=== PATIENT | male | born 1960 | race Hispanic/Latino ===

== ENCOUNTER → 2017-03-25 | Outpatient (CLI) | payer MEDICARE ==
[~2017-03-25] MED LIST: AMLODIPINE BESYL5 MG PO; CARVEDILOL12.5 MG PO; HUMULIN N100 UNITS/ SQ; HUMULIN R100 UNIT/2 SQ; HYDRALAZINE HCL25 MG PO; LISINOPRIL10 MG PO; RENVELA800 MG PO
--- NOTE | 2017-03-25 16:10 | Diagnostic Imaging Report ---
Right hip 2 - views HISTORY: Pain. Arthritis. COMPARISON: None FINDINGS: No displaced fracture. Osseous alignment is within normal limits. Mild degenerative changes of the right hip joint. Extensive vascular calcifications. IMPRESSION: Mild degenerative osteoarthrosis. Signed by: Dr. Conrad Pierre M.D. on 03/25/2017 4:07 PM
== END ==
LOC: RAD 11:12
PROVIDERS: ATTEND Internal Medicine
DX: M25.551 Pain in right hip (principal); M13.851 Other specified arthritis, right hip

== ENCOUNTER → 2017-12-14 | Outpatient (CLI) | payer MEDICARE ==
--- NOTE | 2017-12-14 16:55 | Diagnostic Imaging Report ---
EXAM: CT Abdomen and Pelvis WITHOUT contrast INDICATION: Left lower quadrant / flank pain COMPARISON: None. TECHNIQUE: Abdomen and pelvis were scanned utilizing a multidetector helical scanner from the lung base to the pubic symphysis without administration of IV contrast. Absence of intravenous contrast decreases sensitivity for detection of focal lesions and vascular pathology. Coronal and sagittal reformations were obtained. Routine protocol was performed. IV CONTRAST: None. ORAL CONTRAST: Water RADIATION DOSE: Total DLP: 821mGy*cm Estimated effective dose: (DLP x 0.015 x size factor) mSv COMPLICATIONS: None FINDINGS: LINES and TUBES: None. LOWER THORAX: Extensive coronary calcifications. Mitral annular calcifications. Lung bases are clear. HEPATOBILIARY: No focal hepatic lesions. There is cholelithiasis with a stone in the distal cystic duct without evidence of cholecystitis. SPLEEN: No splenomegaly. There is a 2.6 cm cyst (19 HU) in the spleen with associated punctate calcification. PANCREAS: No focal masses or ductal dilatation. ADRENALS: No adrenal nodules KIDNEYS/URETERS: No hydronephrosis. Numerous punctate 1-2 mm bilateral renal calcifications are likely vascular calcifications rather than stones. Atrophic bilateral kidneys. Subcentimeter hypodensity in the right kidney, too small to characterize, but likely representing a cyst. GI TRACT: No evidence of diverticulitis. Prominent mid small bowel loops measuring up to 3 cm without associated wall thickening, proximal dilatation, inflammatory changes, or decompression of the colon to suggest obstruction. Colon is filled with stool. Appendix is normal. PELVIC ORGANS/BLADDER: The bladder is decompressed and mildly thick walled. LYMPH NODES: No lymphadenopathy. VESSELS: Atherosclerotic calcifications of the abdominal aorta and branch vessels. PERITONEUM / RETROPERITONEUM: No free air or fluid. BONES AND SOFT TISSUES: No acute bony findings. Degenerative changes of the visualized spine. IMPRESSION: No evidence of diverticulitis or urinary stone. Mildly thick walled bladder which could represent cystitis in the appropriate clinical context. Cholelithiasis with stone in the distal cystic duct without CT evidence of cholecystitis. Extensive coronary atherosclerosis. Signed by: Dr. Jarett Del Rosario MD on 12/14/2017 4:52 PM
== END ==
LOC: CT 13:59
PROVIDERS: ATTEND Internal Medicine
DX: R10.32 Left lower quadrant pain (principal); M54.5 Low back pain; N20.1 Calculus of ureter; K80.20 Calculus of gallbladder without cholecystitis without obstruction; I25.10 Atherosclerotic heart disease of native coronary artery without angina pectoris
CPT/HCPCS: 74176

== ENCOUNTER → 2018-03-03 | Outpatient (CLI) | payer MEDICARE ==
--- NOTE | 2018-03-03 15:37 | Diagnostic Imaging Report ---
EXAMINATION: CHEST 2 VIEWS INDICATION: ^[id number] ^1410 ^COUGH COMPARISON: None FINDINGS: PA and lateral views TUBES and LINES: None. LUNGS: Lungs are well inflated. Mild retrocardiac opacities. PLEURA: No pleural effusion or pneumothorax. HEART AND MEDIASTINUM: The cardiomediastinal silhouette is unremarkable. BONES AND SOFT TISSUES: No acute osseous lesion. Soft tissues are unremarkable. UPPER ABDOMEN: No free air under the diaphragm. IMPRESSION: Mild retrocardiac opacities, concerning for developing pneumonia. Signed by: Dr. Rohit Veloz MD on 03/03/2018 3:33 PM
== END ==
LOC: RAD 14:02
DX: R05 Cough (principal)
CPT/HCPCS: 71046

== ENCOUNTER → 2018-09-15 | Day surgery (SDC) | payer MEDICARE ==
[2018-09-13 11:25] LABS: ALBUMIN 4.2 g/dL (3.5-5.0); ALBUMIN/GLOBULIN RATIO 1.6 (0.8-2.0); ANION GAP 17.5 mmol/L (8-16); BASOPHILS % 0.3 % (0.0-1.0); CALCIUM 10.1 mg/dL (8.4-10.2); CREATININE, SERUM 9.06 mg/dL (0.72-1.25); EOSINOPHILS # (AUTO) 0.3 (0.0-0.4); EOSINOPHILS % 3.7 % (0.0-6.0); HEMATOCRIT 33.1 % (38.2-49.6); HEMOGLOBIN 11.6 g/dL (14.0-18.0); INR 0.94; LYMPHOCYTES % 14.3 % (18.0-39.1); MEAN CORPUSCULAR VOLUME 94.3 fL (81-99); MONOCYTES # (AUTO) 0.3 (0.2-0.8); MONOCYTES % 4.5 % (4.4-11.3); NEUTROPHILS # (AUTO) 5.1 (2.1-6.9); NEUTROPHILS % 76.9 % (38.7-80.0); PLATELET COUNT 135 x10e3/uL (140-360); POTASSIUM 4.5 mmol/L (3.5-5.1); PROTHROMBIN TIME 13.1 seconds (11.9-14.5); RED BLOOD COUNT 3.51 x10e6/uL (4.3-5.7); RED CELL DISTRIBUTION WIDTH 13.8 % (11.7-14.4)
[~2018-09-15] VITALS: Ht 185.4 cm; Wt 99.3 kg
[2018-09-15] VITALS (11 sets, daily range): BP systolic 127–199; BP diastolic 57–98
[~2018-09-15] MED LIST changes: +ASPIR 8181 MG PO; +ASPIRIN 325 MG TAB ONE; +CLONIDINE HCL0.2 MG PO; +CLOPIDOGREL BISULFATE 75 MG TAB ONE; +FENTANYL CITRATE/PF 100MCG/2 ML INJ ONE; +HEPARIN SOD/SOD CHLORIDE 2,000 ML ONE; +HYDRALAZINE HCL 20 MG/ML VIAL ONE; +IOPAMIDOL 300MG/ML 100 ML INFUS..BTL IV ONE; +LANTUS 3ML100 UNITS/ SC; +LIDOCAINE HCL 2% LOCAL 20 ML VIAL ONE; +MIDAZOLAM HCL 2 MG/2 ML VIAL ONE; +MORPHINE SULFATE INJ 4 MG/ML INJ 1ML ONE; +MULTI-VITAMIN1 EACH PO; +SODIUM CHLORIDE 0.9% 1000ML 1,000 ML ONE; +VANCOMYCIN 1GM/NS 250 ML 250 ML ONE; +VERAPAMIL HCL 2.5 MG/ML 2 ML VIAL ONE
--- OUTSIDE RECORDS SUMMARY | 2018-09-15 07:13 | XMS REPORT ---
Author Author [facility] Address Unknown Phone Unavailable Care Team Providers Care Moisture Conditioner Operator Name Role Phone OLGA CRANE Unavailable Unavailable ANDI JAIN Unavailable Unavailable Problems This patient has no known problems. Allergies, Adverse Reactions, Alerts This patient has no known allergies or adverse reactions. Medications This patient has no known medications. Results Test Description Test Time Test Comments Text Results Atomic Results Result Comments CHEST 2 VIEWS 2018-03-03 15:32:00 [place] [address] Patient Name: YASSINE FLOOD JR MR #: [id number] : 1960 Age/Sex: 57/M Req #: [id number] Adm Physician: Ordered by: OLGA CRANE MD Report #: [id number] Location: [facility] Room/Bed: Procedure: [id number] DX/CHEST 2 VIEWS Exam Date: 03/03/18 Exam Time: 1410 REPORT STATUS: Signed EXAMINATION: CHEST 2 VIEWS INDICATION: [id number] 1410 COUGH COMPARISON: None FINDINGS: PA and lateral views TUBES and LINES: None. LUNGS: Lungs are well inflated. Mild retrocardiac opacities. PLEURA: No pleural effusion or pneumothorax. HEART AND MEDIASTINUM: The cardiomediastinal silhouette is unremarkable. BONES AND SOFT TISSUES: No acute osseous lesion. Soft tissues are unremarkable. UPPER ABDOMEN: No free air under the diaphragm. IMPRESSION: Mild retrocardiac opacities, concerning for developing pneumonia. Signed by: Dr. Rohit Trammell MD on 03/03/2018 3:33 PM Dictated By: ROHIT TRAMMELL MD 32 Transcribed By: HEAVEN on 03/03/181532 COPY TO: OLGA CRANE MD CT ABDOMEN/PELVIS WO 2017-12-14 15:03:00 [place] [address] Patient Name: YASSINE FLOOD JR MR #: [id number] : 1960 Age/Sex: 57/M Req #: [id number] Adm Physician: Ordered by: ANDI JAIN MD Report #: [id number] Location: CT Room/Bed: Procedure: [id number] CT/CT ABDOMEN/PELVIS WO Exam Date: Exam Time: REPORT STATUS: Signed EXAM: CT Abdomen and Pelvis WITHOUT contrast INDICATION: Left lower quadrant / flank pain COMPARISON: None. TECHNIQUE: Abdomen and pelvis were scanned utilizing a multidetector helical scanner from the lung base to the pubic symphysis without administration of IV contrast. Absence of intravenous contrast decreases sensitivity for detection of focal lesions and vascular pathology. Coronal and sagittal reformations were obtained. Routine protocol was performed. IV CONTRAST: None. ORAL CONTRAST: Water RADIATION DOSE: Total DLP: 821mGy*cm Estimated effective dose: (DLP x 0.015 x size factor) mSv COMPLICATIONS: None FINDINGS: LINES and TUBES: None. LOWER THORAX: Extensive coronary calcifications. Mitral annular calcifications. Lung bases are clear. HEPATOBILIARY: No focal hepatic lesions. There is cholelithiasis with a stone in the distal cystic duct without evidence of cholecystitis. SPLEEN: No splenomegaly. There is a 2.6 cm cyst (19 HU) in the spleen with associated punctate calcification. PANCREAS: No focal masses or ductal dilatation. ADRENALS: No adrenal nodules KIDNEYS/URETERS: No hydronephrosis. Numerous punctate 1-2 mm bilateral renal calcifications are likely vascular calcifications rather than stones. Atrophic bilateral kidneys. Subcentimeter hypodensity in the right kidney, too small to characterize, but likely representing a cyst. GI TRACT: No evidence of diverticulitis. Prominent mid small bowel loops measuring up to 3 cm without associated wall thickening, proximal dilatation, inflammatory changes, or decompression of the colon to suggest obstruction. Colon is filled with stool. Appendix is normal. PELVIC ORGANS/BLADDER: The bladder is decompressed and mildly thick walled. LYMPH NODES: No lymphadenopathy. VESSELS: Atherosclerotic calcifications of the abdominal aorta and branch vessels. PERITONEUM / RETROPERITONEUM: No free air or fluid. BONES AND SOFT TISSUES: No acute bony findings. Degenerative changes of the visualized spine. IMPRESSION: No evidence of diverticulitis or urinary stone. Mildly thick walled bladder which could represent cystitis in the appropriate clinical context. Cholelithiasis with stone in the distal cystic duct without CT evidence of cholecystitis. Extensive coronary atherosclerosis. Signed by: Dr. Jarad Mccarty MD on 12/14/2017 4:52 PM Dictated By: JARAD MCCARTY MD 51 Transcribed By: HEAVEN on 12/14/171651 COPY TO: ANDI JAIN MD HIP RIGHT 2-3 VW (+/- PELVIS) [place] [address] Patient Name: YASSINE FLOOD JR MR #: [id number] : 1960 Age/Sex: 56/M Req #: [id number] Adm Physician: Ordered by: ANDI JAIN MD Report #: [id number] Location: [facility] Room/Bed: Procedure: [id number] DX/HIP RIGHT 2-3 VW (+/- PELVIS) Exam Date: Exam Time: REPORT STATUS: Signed Right hip 2 - views HISTORY: Pain. Arthritis. COMPARISON: None FINDINGS: No displaced fracture. Osseous alignment is within normal limits. Mild degenerative changes of the right hip joint. Extensive vascular calcifications. IMPRESSION: Mild degenerative osteoarthrosis. Signed by: Dr. Conrad Liu M.D. on 03/25/2017 4:07 PM Dictated By: NEREIDA LIU MD, MD 06 Transcribed By: HEAVEN on 03/25/171606 COPY TO: ANDI JAIN MD
--- NOTE | 2018-09-15 12:20 | NUR ---
1220pm Bedside report received from MARKOS Patterson. Identiferxr Peripheral fix to left leg via rt groin Mynx closure used.NO s/s hematoma or oozing.Alert oriented and appropriate, PERRLA, respirations even and unlabored to room air. Pulses x4 extremities equal and strong. Pedal pulses PT/DP x4 Doppler Cap fill brisk < 3 sec. Skin warm and dry integrity appears Dry and intact IV 20g to rt arm and clamped off, presents healthy w/o s/s of infiltration or complaint. Abdomen soft and supple. pt offered toileting, denies need to urinate or defecate. Dialysis pt left arm fistula positive thrill.For Hd treatment tomorrow 745 am. No personal affects with patient. Family Nathaly at bedside . Pt and family verbalizes understanding of POC. Rt groin MYNX site w/o hematoma or oozing Flat time till 350pm and dc home. Currently w complaint of back pain. 1245 Medicated 2mg Ivp Morphine sulfate ivp for 12/08 c/o back pain at bedside tolerated po intake and sandwich tray states pain decreased to 5/10. 1340 report to bp elevated 190/100 NIBP Manual ck 180/96 Hydralazine 10mg ivp and Morphine sulfate 2mg ivp for c/o back discomfort 12/08 1345 currently pain level 07/08 1400 190/[address] Brumfield 10mg ivp now ds/markos
--- NOTE | 2018-09-15 12:30 | NUR ---
1230 Pt states "think" sugar low , No other signs hypoglycemia.Pt offered po intake after NPO for peripheral angio and current finger stick 130. Received no insulin or meds this am from home list. nelad/rn
--- NOTE | 2018-09-15 13:27 | Operative Report ---
DATE OF PROCEDURE: 09/15/2018 SURGEON: Hector Winn DO PROCEDURES PERFORMED: 1. Conscious sedation, 2 hours. 2. Abdominal aortography. 3. Third-order peripheral angiography of the left lower extremity. 4. Secondary thrombectomy. 5. Orbital atherectomy and percutaneous transluminal angioplasty of the left anterior tibial artery. 6. Orbital atherectomy and percutaneous transluminal angioplasty of the left posterior tibial artery. 7. Orbital atherectomy and percutaneous transluminal angioplasty of the left popliteal artery. PREPROCEDURE DIAGNOSIS: Peripheral arterial disease with diabetes and left foot wound. POSTPROCEDURE DIAGNOSIS: Peripheral arterial disease. ESTIMATED BLOOD LOSS: Less than 20 mL. SPECIMENS REMOVED: None. PROCEDURE IN DETAIL: After informed consent was obtained, the patient was brought to the cardiac catheterization laboratory in a fasting and nonsedated state. Bilateral groins were prepped and draped in the usual sterile fashion. A 2% lidocaine was infiltrated over the right anterior groin for local anesthesia. Using a micropuncture needle, right common femoral artery was accessed via modified Seldinger technique and a 5-Kyrgyz sheath was placed. Next, abdominal aortography was performed using Omni Flush catheter. This was taken up and over and digital subtraction angiography revealed significant peripheral arterial disease. Decision was made to perform percutaneous intervention, the patient received systemic heparin for therapeutic anticoagulation. I crossed it up-and-over 65 cm 6-Kyrgyz sheath. The anterior tibial stenosis was crossed with a Whisper wire and I performed orbital atherectomy and percutaneous transluminal angioplasty with a 2.5 x 100 balloon. Next, I was able to cross to the posterior tibial occlusion and perform orbital atherectomy and balloon angioplasty with a 2.5 mm balloon. Unfortunately, there was some dissection likely from calcium deposit and subsequent balloon inflations did not yield adequate luminal gain. Of note, posterior tibial at plantar arch was occluded and filled via collaterals from the anterior tibial. Next, I performed balloon angioplasty and orbital atherectomy of the popliteal artery. The popliteal was angioplasty with a 5 x 80 Lutonix drug-coated balloon. Final angiography revealed excellent results with brisk two-vessel flow to the level of the foot. The patient tolerated the procedure well with no immediate complications and transported back to his room in stable condition. PROCEDURAL FINDINGS: 1. The infrarenal abdominal aorta and bilateral iliac arteries are patent. 2. The left lower extremity showed patent common femoral, deep femoral, and superficial femoral arteries. The popliteal artery had a 70% stenosis. Anterior tibial had a distal 80% stenosis. The tibioperoneal trunk and the peroneal vessel were patent. The posterior tibial has a chronic total occlusion. 3. The right common femoral, deep femoral, superficial femoral, popliteal, anterior tibial, tibioperoneal trunk, and peroneal vessels are patent. There was washout at the end of the angiography sequence, however, the posterior tibial artery appears to be occluded. DO DOMINGO Bledsoe/MODL /[id number]
--- NOTE | 2018-09-15 14:45 | NUR ---
1445 pt meets DC criteria. Rt groin Mynx site assessed for s/s of complication and presence of hematoma warm, dry, no discolor, and pulses present. IV removed from right wrist. Distal tip appears intact. VS WNL. Pt denies pain, sob, or need at this time. Romina here.Pt states pain relieved 0/10 Bp systolic 170's text Md and pt was dc'd to followup on home meds to make hd in am. Left fistula remain intact with positive thrill.Review of discharge paperwork and follow up instructions. verbalized understanding. Pt to wheelchair and transported to front of hospital. Transferred to private vehicle under own strength w/o incident with DC paperwork in hand. ds/rn
== END | disposition home or self-care (01) ==
LOC: CATH LAB 07:11
PROVIDERS: ATTEND Internal Medicine Cardiovascular Disease
DX: I70.213 Atherosclerosis of native arteries of extremities with intermittent claudication, bilateral legs (principal); I10 Essential (primary) hypertension; E78.5 Hyperlipidemia, unspecified; E11.9 Type 2 diabetes mellitus without complications; Z89.412 Acquired absence of left great toe; S91.302A Unspecified open wound, left foot, initial encounter; X58.XXXA Exposure to other specified factors, initial encounter; Z79.82 Long term (current) use of aspirin; Z79.4 Long term (current) use of insulin; Z82.49 Family history of ischemic heart disease and other diseases of the circulatory system
CPT/HCPCS: 36415; 37225; 37229; 37233; 75625; 75710; 75716; 80053; 85025; 85610; C1724 ×2; C1725 ×4; C1760; C1769 ×5; C1887; J0360; J2001; J2250; J2270; J3010; J3370; J7030; Q9967; 36247

== ENCOUNTER 2018-11-24 18:09 | Emergency (ER) | payer MEDICARE ==
[~2018-11-24] VITALS: Ht 185.4 cm; Wt 99.3 kg
[~2018-11-24 18:09] MED LIST changes: -ASPIRIN 325 MG TAB ONE; -CLOPIDOGREL BISULFATE 75 MG TAB ONE; -FENTANYL CITRATE/PF 100MCG/2 ML INJ ONE; -HEPARIN SOD/SOD CHLORIDE 2,000 ML ONE; -HYDRALAZINE HCL 20 MG/ML VIAL ONE; -IOPAMIDOL 300MG/ML 100 ML INFUS..BTL IV ONE; -LIDOCAINE HCL 2% LOCAL 20 ML VIAL ONE; -MIDAZOLAM HCL 2 MG/2 ML VIAL ONE; -MORPHINE SULFATE INJ 4 MG/ML INJ 1ML ONE; -SODIUM CHLORIDE 0.9% 1000ML 1,000 ML ONE; -VANCOMYCIN 1GM/NS 250 ML 250 ML ONE; -VERAPAMIL HCL 2.5 MG/ML 2 ML VIAL ONE
[2018-11-24] MEDS ORDERED: VANCOMYCIN 1GM/NS 250 ML 250 ML IV STA (18:58)
[2018-11-24] MEDS ORDERED: ACETAMINOPHEN 325 MG TAB PO ONE (19:00)
[2018-11-24 19:19] LABS: BASOPHILS % 0.2 % (0.0-1.0); EOSINOPHILS # (AUTO) 0.1 (0.0-0.4); EOSINOPHILS % 0.5 % (0.0-6.0); HEMATOCRIT 21.6 % (38.2-49.6); HEMOGLOBIN 7.6 g/dL (14.0-18.0); LYMPHOCYTES # (AUTO) 0.7 (1.0-3.2); LYMPHOCYTES % 6.3 % (18.0-39.1); MEAN CORPUSCULAR HGB CONC 35.2 g/dL (31-35); MEAN CORPUSCULAR VOLUME 93.9 fL (81-99); MONOCYTES # (AUTO) 0.7 (0.2-0.8); MONOCYTES % 6.4 % (4.4-11.3); NEUTROPHILS # (AUTO) 9.2 (2.1-6.9); NEUTROPHILS % 86.1 % (38.7-80.0); PLATELET COUNT 143 x10e3/uL (140-360); RED CELL DISTRIBUTION WIDTH 13.8 % (11.7-14.4)
[2018-11-24 19:27] LABS: INR 1.04; PARTIAL THROMBOPLASTIN TIME 40.5 seconds (23.8-35.5); PROTHROMBIN TIME 14.1 seconds (11.9-14.5)
[2018-11-24 19:36] LABS: ALBUMIN 3.5 g/dL (3.5-5.0); ALBUMIN/GLOBULIN RATIO 1.1 (0.8-2.0); ANION GAP 15.8 mmol/L (8-16); CALCIUM 9.9 mg/dL (8.4-10.2); CREATININE, SERUM 8.77 mg/dL (0.72-1.25); POTASSIUM 3.8 mmol/L (3.5-5.1)
[2018-11-24] MEDS ORDERED: PIPERACILLIN/TAZO 2.25 GM 50 ML IV SCH (20:00)
[2018-11-24 20:09] LABS: CREATINE KINASE MB 3.1 ng/mL (0-5.0)
--- NOTE | 2018-11-24 20:09 | Diagnostic Imaging Report ---
A single frontal view of the chest. HISTORY: Fever, nausea, diabetic COMPARISON: Chest radiograph August 31, 2018 DISCUSSION: Portable technique, limits sensitivity of the exam. Tubes/Lines: None Lungs and pleura: Low lung volumes result in bibasilar vascular crowding, accentuation of the pulmonary interstitial markings, central pulmonary vasculature, and the cardiac silhouette. Allowing for these limitations, the findings are as follows: No evidence of a consolidative pneumonia or pulmonary alveolar edema. No definite pleural effusion or pneumothorax is identified. Heart and mediastinum: The cardiomediastinal silhouette appear(s) unremarkable. Bones and soft tissues: Appear unremarkable, given this limited exam. IMPRESSION: 1. Low lung volumes, likely accentuated by the phase of respiration. 2. No consolidative pneumonia. Signed by: Dr. Chepe Michael D.O., M.M.M. on 11/24/2018 8:06 PM
[2018-11-24] MEDS ORDERED: CLINDAMYCIN PHOS 900MG/ 50ML 50 ML IV STA (21:14)
--- NOTE | 2018-11-24 21:49 | Diagnostic Imaging Report ---
FOOT LEFT COMPLETE - 3 views HISTORY: Pain COMPARISON: None available. FINDINGS: Amputation of the fifth toe at the mid metatarsal level. Well-corticated defect in the distal fourth metatarsal. Old appearing fracture deformity and subluxation at the level of third metatarsophalangeal joint. No evidence of acute displaced fracture or dislocation. No definite evidence of erosion. Soft tissue swelling of the forefoot. Vascular calcifications. Small plantar calcaneal enthesophyte. IMPRESSION: Chronic changes of the left foot as described above. No definite evidence of acute displaced fracture or dislocation. No definite evidence of osteomyelitis. Signed by: Dr. Rohit Veloz MD on 11/24/2018 9:46 PM
[2018-11-24 23:25] VITALS: BP 156/77
[2018-11-24] MEDS ORDERED: ULTRAM50 MG PO (23:30)
[2018-11-24] MEDS ORDERED: NITROGLYCERIN1 EAC1 TOP (23:30)
[2018-11-24] MEDS ORDERED: CLINDAMYCIN HC300 MG PO (23:30)
== END 2018-11-24 23:50 | disposition home or self-care (01) ==
LOC: ER 18:09
DX: E11.621 Type 2 diabetes mellitus with foot ulcer (principal); L97.429 Non-pressure chronic ulcer of left heel and midfoot with unspecified severity; M79.672 Pain in left foot; I12.0 Hypertensive chronic kidney disease with stage 5 chronic kidney disease or end stage renal disease; E11.22 Type 2 diabetes mellitus with diabetic chronic kidney disease; N18.6 End stage renal disease; Z99.2 Dependence on renal dialysis; H54.8 Legal blindness, as defined in USA
CPT/HCPCS: 36415; 71045; 80053; 82550; 82553; 82948; 83605; 84484; 85025; 85610; 85730; 87040; 93005; 99284

== ENCOUNTER 2019-01-06 15:29 | Outpatient (RCR) | payer MEDICARE ==
[~2019-01-06 15:29] MED LIST changes: +CLINDAMYCIN HC300 MG PO; +COLLAGENASE OINTMENT 30 GM TUBE ONE; +NITROGLYCERIN1 EAC1 TOP; +ULTRAM50 MG PO
== END 2019-01-28 ==
LOC: EDSEX → WCC 15:29
PROVIDERS: ATTEND Family Medicine Adult Medicine
DX: E11.621 Type 2 diabetes mellitus with foot ulcer (principal); B96.5 Pseudomonas (aeruginosa) (mallei) (pseudomallei) as the cause of diseases classified elsewhere; L97.426 Non-pressure chronic ulcer of left heel and midfoot with bone involvement without evidence of necrosis; H54.8 Legal blindness, as defined in USA; I12.0 Hypertensive chronic kidney disease with stage 5 chronic kidney disease or end stage renal disease; I50.9 Heart failure, unspecified; I79.8 Other disorders of arteries, arterioles and capillaries in diseases classified elsewhere; M79.672 Pain in left foot; N18.6 End stage renal disease; Z99.2 Dependence on renal dialysis

== ENCOUNTER 2019-10-12 18:35 | Inpatient (IN) | payer MEDICARE, OTHER ==
[~2019-10-12] VITALS: Ht 185.4 cm; Wt 88.5 kg
[~2019-10-12 18:35] MED LIST changes: -COLLAGENASE OINTMENT 30 GM TUBE ONE
--- NOTE | 2019-10-12 19:15 | Emergency Department Note ---
History of Present Illnes History of Present Illness Chief Complaint: General Medicine Complaints History of Present Illness This is a 59 year old male Chief Complaint Comment went to pcp office for f/u and bloodwork pt had blood transfusion at [facility] hgb was 7 at pcp office denies cp says he's starting to feel sob pt legally blind presents with diabetic ulcer to left heel and had graft done august 08, 2019 at [facility] pt on dialysis m/w/f has fistula to left forearm pt a & o x 3 denies all other complaints at this time. Historian: Patient Arrival Mode: Car Ultimate Hoops Referee Required: No Onset (how long ago): day(s) Location: Generalized Quality: SoB Radiation: Reports non-radiation Severity: mild Onset quality: gradual Duration (how long): day(s) Timing of current episode: constant Progression: worsening Chronicity: recurrent Context: Reports recent surgery; Denies recent illness Relieving factors: none Exacerbating factors: none Associated symptoms: Reports denies other symptoms Treatments prior to arrival: none Past Medical/Family History Physician Review I have reviewed the patient's past medical and family history. Any updates have been documented here. Past Medical History Recent Fever: No Clinical Suspicion of Infectio: No New/Unexplained Change in Ment: No Past Medical History: Hypertension, Diabetes, CHF, ESRD, Hemodyalisis, Anemia Other Medical History: DIALYSIS LEGALLY BLIND Other Surgery: L AV FISTULA AMPUTATION L GREAT TOE AMPUTATION L INDEX FINGER STENTS Social History Physically hurt or threatened: No Other Last Tetanus: 2012 Review of Systems Review of Systems Constitutional: Reports no symptoms EENTM: Reports no symptoms Cardiovascular: Reports no symptoms Respiratory: Reports no symptoms, Reports dyspnea Gastrointestinal: Reports no symptoms Genitourinary: Reports no symptoms Musculoskeletal: Reports no symptoms Integumentary: Reports no symptoms Neurological: Reports no symptoms Psychological: Reports no symptoms Endocrine: Reports no symptoms Hematological/Lymphatic: Reports no symptoms Physical Exam Related Data Allergies: Coded Allergies: No Known Allergies (Unverified , 02/11/14) Triage Vital Signs Vital Signs Date Time Temp Pulse Resp B/P (MAP) Pulse Ox O2 Delivery O2 Flow Rate FiO2 10/12/19 18:46 97.8 77 18 150/53 99 Room Air Vital signs reviewed: Yes Physical Exam CONSTITUTIONAL Constitutional: Present well-developed, Present well-nourished HENT HENT: Present normocephalic, Present atraumatic, Present oropharynx clear/moist, Present nose normal HENT L/R: Present left ext ear normal, Present right ext ear normal EYES Eyes: Reports PERRL, Reports conjunctivae normal NECK Neck: Present ROM normal PULMONARY Pulmonary: Present effort normal, Present breath sounds normal CARDIOVASCULAR Cardiovascular: Present regular rhythm, Present heart sounds normal, Present capillary refill normal, Present normal rate GASTROINTESTINAL Abdominal: Present soft, Present nontender, Present bowel sounds normal GENITOURINARY Genitourinary: Present exam deferred SKIN Skin: Present warm, Present dry MUSCULOSKELETAL Musculoskeletal: Present ROM normal, Present other (chronic diabetic foot wound in the left status post grafting. No signs of erythema, swelling.) NEUROLOGICAL Neurological: Present alert, Present oriented x 3, Present no gross motor or sensory deficits PSYCHOLOGICAL Psychological: Present mood/affect normal, Present judgement normal Results Laboratory Laboratory Laboratory Tests Test 10/12/19 18:56 Assessment & Plan Medical Decision Making MDM 59-year-old male with past medical history of end-stage renal disease on dialysis and diabetic foot wound who presents to emergency department for low hemoglobin. His hemoglobin was noted to be 5.7 during outpatient testing initial to come to the emergency department. He endorses some mild shortness of breath. He states is consistent with the last few times he has had anemia. He is generally able to be transfused and discharged home. He denies any other symptoms and otherwise feels at his baseline health. Hgb was noted to be 5.9. He is transfused 2 units of packed red blood cells. CXR noted PNA and with elevated WBC will give Zosyn and admit. Discussed with Dr. Gamboa who has agreed to accept the patient. Patient appropriate for transfer to floor. Reassessment Reassessment time: 19:19 Reassessment Well appearing NAD Assessment & Plan Final Impression: (1) Anemia (2) Pneumonia Depart Disposition: ADMITTED Last Vital Signs Date Time Temp Pulse Resp B/P (MAP) Pulse Ox O2 Delivery O2 Flow Rate FiO2 10/12/19 19:11 72 20 134/58 100 Room Air 10/12/19 18:46 97.8 Home Meds Active Scripts Tramadol Hcl (ULTRAM) 50 Mg Tablet, 50 MG PO Q6HR PRN for Mild Pain (1-3) or Fever>100.8, #20 TAB Prov:OCTVAIA DUONG, 11/24/18 Nitroglycerin (NITROGLYCERIN PATCH) 1 Each Patch.td24, 0.4 MG TOP DAILY, #30 Prov:OCTAVIA DUONG, 11/24/18 Clindamycin Hcl (CLINDAMYCIN HCL) 300 Mg Capsule, 300 MG PO Q6H for 10 Days, #40 Prov:OCTAVIA DUONG, 11/24/18 Reported Medications Aspirin (ASPIR 81) 81 Mg Tablet.dr, 81 MG PO DAILY 09/13/18 Multivitamin (MULTI-VITAMIN DAILY) 1 Each Tablet, 1 TAB PO DAILY 09/13/18 Insulin Glargine (LANTUS 3ML PEN) 100 Units/1 Ml Inj, 10 UNITS SC HS 09/13/18 Clonidine Hcl (CLONIDINE HCL) 0.2 Mg Tablet, 0.2 MG PO PRN PRN for HIGH BLOOD PRESSURE 09/13/18 Insulin Regular, Human (HUMULIN R) 100 Unit/1 Ml Vial, UNIT SQ ACHS UNITS GIVEN PER SLIDING SCALE 02/11/14 Amlodipine Besylate (AMLODIPINE BESYLATE) 5 Mg Tablet, 5 MG PO BID, #30 TAB 02/11/14 Carvedilol (CARVEDILOL) 12.5 Mg Tablet, 25 MG PO BID, #60 TAB 02/11/14 Hydralazine Hcl (HYDRALAZINE HCL) 25 Mg Tab, 150 MG PO TID, TAB 02/11/14 CONNIE HERRON MD Oct 12, 2019 19:15
[2019-10-12 19:18] LABS: BASOPHILS % 0.2 % (0.0-1.0); EOSINOPHILS # (AUTO) 0.1 (0.0-0.4); EOSINOPHILS % 2.2 % (0.0-6.0); LYMPHOCYTES # (AUTO) 0.7 (1.0-3.2); MEAN CORPUSCULAR HEMOGLOBIN 32.1 pg (28-32); MEAN CORPUSCULAR HGB CONC 32.8 g/dL (31-35); MEAN CORPUSCULAR VOLUME 97.8 fL (81-99); MONOCYTES # (AUTO) 0.2 (0.2-0.8); NEUTROPHILS # (AUTO) 3.5 (2.1-6.9); NEUTROPHILS % 78.2 % (38.7-80.0); PLATELET COUNT 106 x10e3/uL (140-360); RED BLOOD COUNT 1.84 x10e6/uL (4.3-5.7); RED CELL DISTRIBUTION WIDTH 15.9 % (11.7-14.4)
[2019-10-12 19:20] LABS: HEMOGLOBIN 5.9 g/dL (14.0-18.0)
[2019-10-12] MEDS ORDERED: SODIUM CHLORIDE 0.9% 250ML 250 ML IV ONE (19:30)
[2019-10-12 19:39] LABS: ALBUMIN 3.3 g/dL (3.5-5.0); ALBUMIN/GLOBULIN RATIO 1.4 (0.8-2.0); ANION GAP 18.2 mmol/L (8-16); CALCIUM 9.1 mg/dL (8.4-10.2); CREATININE, SERUM 7.3 mg/dL (0.72-1.25); POTASSIUM 4.2 mmol/L (3.5-5.1)
--- OUTSIDE RECORDS SUMMARY | 2019-10-12 20:16 | XMS REPORT | Clinical Summary ---
Author Author [facility] Address Unknown Phone Unavailable Care Team Providers Care Private Chef Name Role Phone Jaskaran Gamboa MD PCP Allergies No Known Allergies Medications End Date Status Medication Sig Dispensed Refills Start Date Active aspirin 81 MG chewable Take 81 mg by 0 tablet mouth daily. Active clopidogrel (PLAVIX) 75 Take 75 mg by 5 mg tablet mouth daily. 9 Active gabapentin (NEURONTIN) Take 100 mg 0 100 MG capsule by mouth 3 (three) times daily as needed neuropathy. 01/25/2020 Active senna-docusate (SENOKOT Take 2 0 S) 8.6-50 mg per tablet tablets by 9 mouth nightly. Active epoetin gil-epbx Inject 2 mLs 0 (RETACRIT) 3,000 unit/mL (6,000 Units 9 Soln total) injectionIndications: subcutaneousl anemia in chronic kidney y 3 (three) disease times a week at bedtime MON/WED/FRI. Active insulin glargine (LANTUS Inject 5 5 mL 0 0 U-100 INSULIN) 100 Units 0 unit/mL injection subcutaneousl y every morning If morning blood sugar is less than 110 mg/dL, give yourself 3 units of lantus instead.. 11/12/2019 Active atorvastatin (LIPITOR) 40 Take 1 tablet 90 tablet 0 MG tablet (40 mg total) 0 by mouth nightly for 90 days. 11/12/2019 Active lanthanum (FOSRENOL) 1000 Take 1 tablet 180 tablet 0 MG chewable tablet (1,000 mg 0 total) by mouth 2 (two) times daily with breakfast and dinner for 90 days. Active VELPHORO 500 mg Chew CRUSH OR CHEW 0 AND SWALLOW 3 0 TABLETS 3 TIMES A DAY WITH MEALS 01/05/2020 Active carvediloL (COREG) 25 MG Take 1 tablet 180 tablet 0 tablet (25 mg total) 0 by mouth 2 (two) times daily for 90 days Takes as your code official recommends. Active lisinopriL Take 1 tablet 0 (PRINIVIL,ZESTRIL) 10 MG (10 mg total) 0 tablet by mouth daily Take as directed by your code official. 01/25/2019 Discontinued hydrALAZINE (APRESOLINE) Take 150 mg 0 100 MG tablet by mouth 3 (three) times daily . 01/17/2019 Discontinued lisinopril Take 20 mg by 0 (PRINIVIL,ZESTRIL) 20 MG mouth 3 tablet (three) times daily . 08/11/2019 Discontinued carvedilol (COREG) 25 MG Take 25 mg by 0 tablet mouth 3 (three) times daily . 08/11/2019 Discontinued amLODIPine (NORVASC) 5 MG Take 10 mg by 0 tablet mouth 2 (two) times daily . 01/17/2019 Discontinued multivitamin per tablet Take 1 tablet 0 by mouth daily. 01/17/2019 Discontinued nortriptyline (PAMELOR) Take 25 mg by 0 25 MG capsule mouth nightly. 01/17/2019 Discontinued sevelamer (RENVELA) 800 Take 800 mg 0 mg tablet by mouth 3 (three) times daily with meals. 3 tabs w/ meals 01/25/2019 Discontinued insulin regular (HUMULIN Inject 0 R,NOVOLIN R) 100 unit/mL subcutaneousl injection y 3 (three) times daily before meals. Use as directed 01/17/2019 Discontinued insulin NPH 100 unit/mL Inject 5 0 (3 mL) InPn Units subcutaneousl y nightly. 08/11/2019 Discontinued diphenhydrAMINE Take 50 mg by 0 (BENADRYL) 25 mg tablet mouth every night as needed for Sleep . 01/25/2019 Discontinued insulin glargine (LANTUS) Inject 10 0 100 unit/mL injection Units subcutaneousl y nightly Use as directed . 08/11/2019 Discontinued sucroferric oxyhydroxide Take 1,000 mg 0 (VELPHORO ORAL) by mouth 3 (three) times daily with meals. 01/17/2019 Discontinued cloNIDine HCl (CATAPRES) Take 0.1 mg 0 10/29 0.1 MG tablet by mouth as 2 needed for Hypertension (Specify SBP/DBP in PRN comments) SBP >200. 01/25/2019 Discontinued furosemide (LASIX) 80 MG Take 80 mg by 0 06/21 tablet mouth daily. 2 03/08/2019 Discontinued cholecalciferol, vitamin Take 5,000 0 D3, 5,000 unit Tab Units by mouth daily. 01/17/2019 Discontinued nitroglycerin (NITRODUR) Apply 0.4 0 11/24 0.4 mg/hr patch mg/hr 9 topically as needed For dressing changes. 08/11/2019 Discontinued lactulose (CHRONULAC) 10 Take 30 mLs 0 07/05 gram/15 mL solution by mouth as 4 needed For constipation. 03/08/2019 Discontinued LINZESS 145 mcg Cap Take 145 mcg 10 by mouth 9 daily. 01/17/2019 Discontinued nitroglycerin (NITRODUR) Place 0.1 0 11/18 0.1 mg/hr patch patches onto 9 the skin daily. 08/11/2019 Discontinued nitroglycerin (NITRODUR) Place 0.4 0 12/20 0.4 mg/hr patch patches onto 9 the skin every 12 (twelve) hours. 02/23/2019 Discontinued cloNIDine HCl (CATAPRES) Take 0.2 mg 5 11/17 0.2 MG tablet by mouth as 9 needed (SBP >200) . 08/11/2019 Discontinued cloNIDine HCl (CATAPRES) Take 1 tablet 0 01/25 0.1 MG tablet (0.1 mg 9 total) by mouth every 8 (eight) hours. 01/28/2019 polyethylene glycol Take 17 g by 14 each 0 01/25 (GLYCOLAX) 17 gram packet mouth 2 (two) 9 times daily for 3 days. 01/25/2019 Discontinued piperacillin-tazobactam Inject 2.25 g 0 (ZOSYN) MBP 2.25 g in 100 intravenously 9 mL NS every 8 (eight) hours for 2 days. 01/25/2019 Discontinued oxyCODONE-acetaminophen Take 1 tablet 30 tablet 0 (PERCOCET) 5-325 mg per by mouth 9 tablet every 4 (four) hours as needed. Max Daily Amount: 6 tablets 01/25/2019 Discontinued lisinopril Take 1 tablet 0 (PRINIVIL,ZESTRIL) 20 MG (20 mg total) 9 tablet by mouth daily. 02/07/2019 Discontinued bisacodyl (DULCOLAX) 10 Place 1 12 0 mg suppository suppository suppository 9 (10 mg total) rectally daily as needed for up to 10 days. 02/24/2019 bisacodyl (DULCOLAX) 5 mg Take 1 tablet 30 tablet 0 EC tablet (5 mg total) 9 by mouth daily as needed for Constipation for up to 30 days. 02/07/2019 Discontinued oxyCODONE-acetaminophen Take 1 tablet 30 tablet 0 (PERCOCET) 10-325 mg per by mouth 9 tablet every 4 (four) hours as needed (severe pain) for up to 10 days. Max Daily Amount: 6 tablets 01/25/2019 Discontinued lisinopril Take 2 0 (PRINIVIL,ZESTRIL) 20 MG tablets (40 9 tablet mg total) by mouth daily. 03/13/2019 Discontinued oxyCODONE-acetaminophen Take 1 tablet 30 tablet 0 (PERCOCET) 5-325 mg per by mouth 9 tablet every 4 (four) hours as needed (moderate pain). Max Daily Amount: 6 tablets 03/08/2019 Discontinued lisinopril Take 1 tablet 0 (PRINIVIL,ZESTRIL) 40 MG (40 mg total) 9 tablet by mouth 2 (two) times daily. 08/11/2019 Discontinued hydrALAZINE (APRESOLINE) Take 1 tablet 0 01/25 100 MG tablet (100 mg 9 total) by mouth 3 (three) times daily. 01/28/2019 piperacillin-tazobactam Inject 2.25 g 0 (ZOSYN) MBP 2.25 g in 100 intravenously 9 mL NS every 8 (eight) hours for 3 days. 02/09/2019 Discontinued oxyCODONE-acetaminophen Take 1 tablet 30 tablet 0 (PERCOCET) 10-325 mg per by mouth 9 tablet every 4 (four) hours as needed (severe pain) for up to 10 days. Max Daily Amount: 6 tablets 08/11/2019 Discontinued insulin lispro (HUMALOG) Inject 0-8 10 mL 0 1 100 unit/mL injection Units 9 subcutaneousl y 3 (three) times daily before meals. 08/11/2019 Discontinued insulin glargine (LANTUS Inject 10 10 mL 0 1 U-100 INSULIN) 100 Units 9 unit/mL injection subcutaneousl y nightly Use as directed. 03/18/2019 HYDROcodone-acetaminophen Take 1 tablet 10 tablet 0 (NORCO 10-325) 10-325 mg by mouth 0 per tablet every 6 (six) hours as needed for Pain for up to 5 days. Max Daily Amount: 4 tablets 03/20/2019 amoxicillin-clavulanate Take 1 tablet 7 tablet 0 (AUGMENTIN) 500-125 mg by mouth 0 per tablet daily for 7 days Take after dialysis on dialysis days.. 04/18/2019 amoxicillin-clavulanate Take 1 tablet 40 tablet 1 (AUGMENTIN) 875-125 mg by mouth 0 per tablet every 12 (twelve) hours for 10 days. 04/08/2019 Discontinued traMADol (ULTRAM) 50 mg Take 1 tablet 20 tablet 0 tablet (50 mg total) 0 by mouth every 6 (six) hours as needed for Pain for up to 10 days. Max Daily Amount: 200 mg 04/18/2019 acetaminophen (TYLENOL) Take 1 tablet 30 tablet 0 500 MG tablet (500 mg 0 total) by mouth every 6 (six) hours as needed for Pain for up to 10 days. 04/18/2019 traMADol (ULTRAM) 50 mg Take 1 tablet 20 tablet 0 tablet (50 mg total) 0 by mouth every 6 (six) hours as needed for Pain for up to 10 days. Max Daily Amount: 200 mg 08/11/2019 Discontinued traMADoL (ULTRAM) 50 mg Take 50 mg by 0 tablet mouth every 6 (six) hours as needed for Pain. 08/14/2019 Discontinued amLODIPine (NORVASC) 10 Take 1 tablet 90 tablet 1 MG tablet (10 mg total) 0 by mouth every evening. 08/14/2019 Discontinued carvediloL (COREG) 25 MG Take 1.5 270 tablet 0 0 tablet tablets (37.5 0 mg total) by mouth 2 (two) times daily for 90 days. 08/14/2019 Discontinued lanthanum (FOSRENOL) 1000 Take 1 tablet 180 tablet 0 MG chewable tablet (1,000 mg 0 total) by mouth 2 (two) times daily with breakfast and dinner for 90 days. 08/14/2019 Discontinued atorvastatin (LIPITOR) 40 Take 1 tablet 90 tablet 0 MG tablet (40 mg total) 0 by mouth nightly for 90 days. 08/14/2019 Discontinued polyethylene glycol Take 17 g by 510 g 0 08/10 (GLYCOLAX) 17 gram/dose mouth daily 0 powder for 30 days. 08/13/2019 Discontinued amoxicillin-clavulanate Take 1 tablet 20 tablet 0 (AUGMENTIN) 500-125 mg by mouth 2 0 per tablet (two) times daily for 10 days. 08/14/2019 Discontinued amoxicillin-clavulanate Take 1 tablet 20 tablet 0 (AUGMENTIN) 500-125 mg by mouth 0 per tablet daily for 10 days Take DURING or AFTER dialysis on dialysis days.. 10/06/2019 Discontinued amLODIPine (NORVASC) 10 Take 1 tablet 90 tablet 1 MG tablet (10 mg total) 0 by mouth every evening. 08/24/2019 amoxicillin-clavulanate Take 1 tablet 20 tablet 0 (AUGMENTIN) 500-125 mg by mouth 0 per tablet daily for 10 days Take DURING or AFTER dialysis on dialysis days.. 09/13/2019 polyethylene glycol Take 17 g by 510 g 0 08/13 (GLYCOLAX) 17 gram/dose mouth daily 0 powder for 30 days. 10/07/2019 Discontinued carvediloL (COREG) 25 MG Take 1.5 270 tablet 0 0 tablet tablets (37.5 0 mg total) by mouth 2 (two) times daily for 90 days. 08/24/2019 oxyCODONE-acetaminophen Take 1 tablet 30 tablet 0 (PERCOCET) 5-325 mg per by mouth 0 tablet every 4 (four) hours as needed for up to 10 days. Max Daily Amount: 6 tablets 10/07/2019 Discontinued lisinopriL Take 10 mg by 0 (PRINIVIL,ZESTRIL) 10 MG mouth daily. 0 tablet Active Problems Patient Care Coordination Note Dr Garcia, Chemical Laboratory Scientist Dr. Jackson, PCP Tel. #: [phone] Problem Noted Date ESRD (end stage renal disease) 10/06/2019 Subacute osteomyelitis of left ankle 08/14/2019 Heel ulcer 08/08/2019 Wound, open, foot 08/08/2019 Non healing left heel wound 08/08/2019 PAD (peripheral artery disease) 04/07/2019 Ulcer of heel, left, with unspecified severity 03/08 Hyperkalemia 02/20/2019 Symptomatic bradycardia 02/20/2019 Gastrointestinal hemorrhage, unspecified gastrointest inal hemorrhage type 02/20/2019 Overview: Added automatically from request for [facility] / [facility] [id number] Type II or unspecified type diabetes mellitus with pe ripheral circulatory 01/20/2019 disorders, not stated as uncontrolled(2 50.70) Type 2 diabetes mellitus with left diabetic foot infe ction 01/20/2019 Non-healing wound of left heel 01/20/2019 Anemia due to chronic kidney disease 01/20/2019 Osteoarthritis of left foot 01/16/2019 HLD (hyperlipidemia) 03/21/2015 Hyperparathyroidism 03/21/2015 ESRD (end stage renal disease) on dialysis 5 Last Assessment & Plan: Continue HD per his steel 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 Pre-transplant evaluation for chronic kidney disease 06/26/2014 Last Assessment & Plan: Chart reviewed, including cardiac cath with runoff. There is no evidence of vascular disease that would preclude transplant. From a surgical perspective, he is a good candidate and [place] to actively list. Diabetes mellitus 06/26/2014 Last Assessment & Plan: Continue tight glucose control with cur rent insulin therapy. Hypertension 06/26/2014 Last Assessment & Plan: Continue antihypertensives as prescribe d. Chronic diastolic heart failure, NYHA class 1 2011 Obstructive sleep apnea 02/25/2011 ESRD on hemodialysis Resolved Problems Problem Noted Date Resolved Date Symptomatic anemia 02/02/2019 10/07/2019 Encounters Care Team Description Date Type Specialty 10/07/2019 Travel Cricket Maradiaga MD Zindani, Shireen, MD Wilson, Catherine Margaret, MD ESRD (end stage renal disease) ([facility]) (Pr imary Dx); Generalized weakness; SOB (shortness of breath); Symptomatic anemia; Anemia due to chronic kidney disease, on chronic dialysis ([facility]); Type 2 diabetes mellitus with chronic kidney disease on chronic dialysis, with long-term current use of insulin ([facility]); Hyperlipidemia, unspecified hyperlipidemia type; Hypertension secondary to other renal disorders; PAD (peripheral artery disease) ([facility]) 10/06/2019 Emergency Cardiology - 10/07/2019 10/06/2019 Orders Only General Internal Nv dicine 10/06/2019 Travel Faraz Barbosa MD 08/08/2019 Anesthesia Event Kj Hammond DPM DEBRIDEMENT/I&D,WOUND EXTREMITY LOWER 08/08/2019 Surgery Kj Hammond DPM Jarrouge, Elie G., MD Heinen, Allison P., MD ESRD (end stage renal disease) on dialys is ([facility]); Non healing left heel wound; Type 2 diabetes mellitus with left diabetic foot infection ([facility]); Skin ulcer of left heel with necrosis of muscle ([facility]); Non-healing wound of left heel; Subacute osteomyelitis of left ankle ([facility]); Hyperparathyroidism ([facility]) 08/08/2019 [facility] General Internal Nv dicine - Encounter 08/14/2019 08/08/2019 Travel Kj Hammond DPM Preop testing 08/03/2019 Hospital Pre-Admission Testi ng Encounter Álvaro Lopes NP Preop testing (Primary Dx) 08/03/2019 Orders Only Cardiology Kj Hammond DPM Foot pain, left 07/20/2019 Hospital Radiology Encounter Kj Hammond DPM Foot pain, left (Primary Dx) 07/20/2019 Outside Orders Central Scheduling Álvaro Lopes NP Preop testing (Primary Dx) 07/13/2019 Orders Only Cardiology 05/30/2019 Hospital Pre-Admission Testi ng Encounter 05/30/2019 Travel Miguel Ángel Torres AA 04/07/2019 Anesthesia Event Roland Wilson MD PERIPHERAL ANGIOS / AORTOGRAM 04/07/2019 Surgery Roland Wilson MD Chronic diastolic heart failure, NYHA cl ass 1 (HCC) 04/07/2019 Hospital Cardiology - Encounter 04/08/2019 04/07/2019 Orders Only General Internal Nv dicine Raymondvioletta Irene LESLEE Bonner 03/13/2019 Anesthesia Event Juan Segundo MD Bartsch, MD Filiberto Luz, MD Bryce Leone Amna, MD Patel, Paola Villar MD Ulcer of heel, left, with unspecified se verity (HCC) (Primary Dx); ESRD on hemodialysis (HCC); Anemia due to chronic kidney disease, on chronic dialysis (HCC); ESRD (end stage renal disease) on dialysis (HCC); Symptomatic anemia; Symptomatic bradycardia; Hypertension secondary to other renal disorders; Non-healing wound of left heel; Type 2 diabetes mellitus with left diabetic foot infection (HCC) 03/07/2019 Hospital Cardiology - Encounter 03/13/2019 03/07/2019 Travel Norah Yanez DO 02/23/2019 Anesthesia Event Arron Carreno MD UPPER ENDOSCOPY 02/23/2019 Surgery Ludwig Prince MD Jafar, Jose Orourke MD Hyperkalemia (Primary Dx); Symptomatic bradycardia; Junctional bradycardia; Calcium channel jason overdose, accidental or unintentional, initial encounter; Gastrointestinal hemorrhage, unspecified gastrointestinal hemorrhage type 02/20/2019 [facility] Internal Nv dicine - Encounter 02/23/2019 02/20/2019 Travel Gold Gabriel MD Gadicherla, Sonal Muralinath, MD Shiekh Sroujieh, Rhiannon Jose MD Symptomatic anemia (Primary Dx); Anemia due to chronic kidney disease, unspecified CKD stage; Type 2 diabetes mellitus with left diabetic foot infection (HCC); ESRD (end stage renal disease) on dialysis (HCC); Hypertension, unspecified type; ESRD on hemodialysis (HCC); Non-healing wound of left heel 02/02/2019 Hospital Cardiology - Encounter 02/09/2019 02/02/2019 Orders Only General Internal Nv dicine 02/02/2019 Travel Ayse Varela MD 01/24/2019 Anesthesia Event Kj Hammond DPM DEBRIDEMENT/I&D,WOUND EXTREMITY LOWER 01/24/2019 Surgery Kody Peña MD PERIPHERAL ANGIOS & IVUS 01/20/2019 Surgery Riley Lopes MD 01/18/2019 Anesthesia Event Kj Hammond DPM I&D,BONE FOOT 01/18/2019 Surgery Terrence Glasgow MD Nalam, MD Shania Avina Mithulan, MD Osteomyelitis of right foot, unspecified type (HCC) (Primary Dx); ESRD (end stage renal disease) (HCC); Subacute osteomyelitis of left ankle (HCC); Diabetic infection of left foot (HCC) 01/16/2019 [facility] Internal Nv dicine - Encounter 01/25/2019 01/16/2019 Travel after 10/11/2018 Family History Medical History Relation Name Comments Diabetes Father Stroke Father Diabetes Maternal Grandmother Kidney failure Maternal Grandmother Hypertension Mother Relation Name Status Comments Father Maternal Grandmother Mother Social History Date Tobacco Use Types Packs/Day Years Used Former Smoker Smokeless Tobacco: Never Used Comments: Quit 2008 Alcohol Use Drinks/Week oz/Week Comments No Sex Assigned at Date Recorded Not on file Industry Job Start Date Occupation Not on file Not on file Not on file Travel End Travel History Travel Start No recent travel history available. Last Filed Vital Signs Time Taken Vital Sign Reading 10/07/2019 3:00 PM CDT Blood Pressure 175/75 10/07/2019 3:00 PM CDT Pulse 72 10/07/2019 3:00 PM CDT Temperature 35.9 C (96.6 F) 10/07/2019 3:00 PM CDT Respiratory Rate 18 10/07/2019 3:00 PM CDT Oxygen Saturation 100% 02/23/2019 3:42 AM UNDERTAKER ASSISTANT Inhaled Oxygen 21% Concentration 10/07/2019 1:45 PM CDT Weight 84.8 kg (186 lb 15.2 oz) 10/07/2019 7:00 AM CDT Height 185.4 cm (6' 1") 10/07/2019 1:45 PM CDT Body Mass Index 24.67 Plan of Treatment Health Maintenance Due Date Last Done Comments COLON CANCER SCREENING 1962 ANNUAL FOBT PNEUMOCOCCAL VACCINE 2-64 1968 YEARS AT RISK (1 of 1 - PPSV23) DIABETIC EYE EXAM 1972 DIABETIC FOOT EXAM 1972 URINE MICROALBUMIN 1972 MEDICARE ANNUAL WELLNESS 04/30/2012 (YEAR 2 or FIRST YEAR if no IPPE) INFLUENZA VACCINE (#1) 2019 HEMOGLOBIN A1C 02/08/2020 2019, 015 LIPID PANEL 08/07/2022 08/08/2019, 015, 05/31/2014 Implants Device Identifier Shelf Expiration Date Model / Serial / L ot Implanted Type Area Manufactur er [id number] 08/23/2020 [id number] / / [id number] Stent Synergy Otw [id number] IMPLANTS Left: Leg KING STON [id number] - [id number] SCI:INTERV Implanted: Qty: 1 on 04/07/2019 by CARDIOLOGY Roland Wilson MD [id number] 01/23/2021 [id number] / [id number] / Cath [id number] 1ot841of [id number] IMPLANTS Left: Leg WL GORE & - [id number] ASSC:MED Implanted: Qty: 1 on 04/07/2019 by Roland Amos MD [id number] 09/13/2021 [id number] / [id number] / Stent Art Fem 6fr [id number] IMPLANTS Left: Leg WL GORE & [id number] - [id number] ASSC:MED Implanted: Qty: 1 on 04/07/2019 by Roland Amos MD [id number] 10/29/2020 [id number] / / [id number] Stent Ls Exp Vasc Cvr [id number] IMPLANTS Left: Leg CR [id number] - [id number] BARD:PERIP Implanted: Qty: 1 on 04/07/2019 by HERRoland Vaughan MD 05/29/2021 [id number] / / [id number] Pwdr Cellerate Clgn 1gm Strl IMPLANTS Left: Foot W OUND CARE [id number] - [id number] INNOVATION Implanted: Qty: 2 on 08/08/2019 by Kj Mercado, SHA [id number] 04/25/2019 [id number] / / [id number] Hyalomatrix 2x2in Left: Foot MEDLINE Implanted: Qty: 1 on 01/24/2019 by Kj Wiggins DPM 08/30/2019 [id number] / / [id number] Hyalomatrix [id number] Left: Foot MEDLINE Implanted: Qty: 1 on 01/24/2019 by Kj Wiggins DPM 06/06/2020 [id number] / / [id number] Synergy Commercial Otw 4.00mm X [place] 20mm SCIENTIFIC Implanted: Qty: 1 on 04/07/2019 by Roland Wilson MD Procedures Comments Procedure Name Priority Date/Time Associated Diag nosis REPORT OF PROCEDURE - 10/10/2019 ENDOSCOPY SCAN 11:41 AM CDT TRANSFUSION SERVICE 10/09/2019 REPORT - SCAN 6:00 PM CDT PREPARE LEUKO-REDUCED RBC Routine 10/08/2019 11:54 PM CDT PREPARE LEUKO-REDUCED RBC Routine 10/08/2019 11:54 PM CDT TRANSFUSION SERVICE 10/08/2019 REPORT - SCAN 6:00 PM CDT TRANSFUSION SERVICE 10/07/2019 REPORT - SCAN 6:03 PM CDT POCT-GLUCOSE METER Routine 10/07/2019 3:41 PM CDT TROPONIN I Routine 10/07/2019 3:37 PM CDT HEMODIALYSIS INPATIENT Routine 10/07/2019 1:45 PM CDT HEMOGLOBIN AND HEMATOCRIT Routine 10/07/2019 1:34 PM CDT POCT-GLUCOSE METER Routine 10/07/2019 1:27 PM CDT TRANSFUSE LEUKO-REDUCED Routine 10/07/2019 RED BLOOD CELLS 12:31 PM CDT TRANSFUSE LEUKO-REDUCED Routine 10/07/2019 RED BLOOD CELLS 10:06 AM CDT POCT-GLUCOSE METER Routine 10/07/2019 7:24 AM CDT MAGNESIUM Routine 10/07/2019 6:25 AM CDT PHOSPHORUS Routine 10/07/2019 6:25 AM CDT BASIC METABOLIC PANEL (7) Routine 10/07/2019 6:25 AM CDT TROPONIN I STAT 10/07/2019 6:25 AM CDT CBC (HEMOGRAM ONLY) Routine 10/07/2019 5:19 AM CDT HEMOGLOBIN AND HEMATOCRIT STAT 10/07/2019 5:19 AM CDT TRANSFUSE LEUKO-REDUCED Routine 10/07/2019 RED BLOOD CELLS 1:34 AM CDT FERRITIN Routine 10/06/2019 11:37 PM CDT IRON, TIBC, % SAT. Routine 10/06/2019 (WITHOUT FERRITIN) 11:37 PM CDT TROPONIN I STAT 10/06/2019 11:37 PM CDT SARS-COV2/RT-PCR ([facility] & Routine 10/06/2019 REF LABS) 11:37 PM CDT XR CHEST 1 VIEW STAT 10/06/2019 PORTABLE/BEDSIDE 7:37 PM CDT ECG 12-LEAD STAT 10/06/2019 7:34 PM CDT CBC W/PLT COUNT & AUTO STAT 10/06/2019 DIFFERENTIAL 7:22 PM CDT TYPE AND SCREEN, STAT 10/06/2019 AUTOMATED 7:22 PM CDT TROPONIN I STAT 10/06/2019 7:22 PM CDT BASIC METABOLIC PANEL (7) STAT 10/06/2019 7:22 PM CDT CBC W/PLT COUNT & AUTO STAT 10/06/2019 DIFFERENTIAL 7:22 PM CDT ED ECG INTERPRETATION Routine 10/06/2019 7:07 PM CDT TRANSFUSION SERVICE 08/16/2019 REPORT - SCAN 6:01 PM CDT PREPARE RBC Routine 08/14/2019 7:34 PM CDT PREPARE LEUKO-REDUCED RBC Routine 08/14/2019 7:34 PM CDT POCT-GLUCOSE METER Routine 08/14/2019 4:39 PM CDT POCT-GLUCOSE METER Routine 08/14/2019 11:27 AM CDT POCT-GLUCOSE METER Routine 08/14/2019 7:46 AM CDT CBC W/PLT COUNT & AUTO Routine 08/14/2019 DIFFERENTIAL 5:13 AM CDT CBC W/PLT COUNT & AUTO Routine 08/14/2019 DIFFERENTIAL 5:13 AM CDT PHOSPHORUS Routine 08/14/2019 5:13 AM CDT BASIC METABOLIC PANEL (7) Routine 08/14/2019 5:13 AM CDT POCT-GLUCOSE METER Routine 08/13/2019 11:27 PM CDT POCT-GLUCOSE METER Routine 08/13/2019 9:27 PM CDT TRANSFUSION SERVICE 08/13/2019 REPORT - SCAN 6:00 PM CDT POCT-GLUCOSE METER Routine 08/13/2019 4:37 PM CDT POCT-GLUCOSE METER Routine 08/13/2019 11:42 AM CDT POCT-GLUCOSE METER Routine 08/13/2019 8:20 AM CDT POCT-GLUCOSE METER Routine 08/13/2019 5:44 AM CDT CBC W/PLT COUNT & AUTO Routine 08/13/2019 DIFFERENTIAL 5:11 AM CDT CBC W/PLT COUNT & AUTO Routine 08/13/2019 DIFFERENTIAL 5:11 AM CDT PHOSPHORUS Routine 08/13/2019 5:11 AM CDT BASIC METABOLIC PANEL (7) Routine 08/13/2019 5:11 AM CDT POCT-GLUCOSE METER Routine 08/12/2019 11:28 PM CDT TRANSFUSION SERVICE 08/12/2019 REPORT - SCAN 6:02 PM CDT POCT-GLUCOSE METER Routine 08/12/2019 3:43 PM CDT POCT-GLUCOSE METER Routine 08/12/2019 11:18 AM CDT POCT-GLUCOSE METER Routine 08/12/2019 8:02 AM CDT CBC W/PLT COUNT & AUTO Routine 08/12/2019 DIFFERENTIAL 5:37 AM CDT CBC W/PLT COUNT & AUTO Routine 08/12/2019 DIFFERENTIAL 5:37 AM CDT PHOSPHORUS Routine 08/12/2019 5:37 AM CDT MAGNESIUM Routine 08/12/2019 5:37 AM CDT BASIC METABOLIC PANEL (7) Routine 08/12/2019 5:37 AM CDT POCT-GLUCOSE METER Routine 08/12/2019 1:28 AM CDT HEMODIALYSIS INPATIENT Routine 08/11/2019 11:37 PM CDT POCT-GLUCOSE METER Routine 08/11/2019 10:37 PM CDT TRANSFUSE LEUKO-REDUCED Routine 08/11/2019 RED BLOOD CELLS 9:58 PM CDT POCT-GLUCOSE METER Routine 08/11/2019 7:42 PM CDT TYPE AND SCREEN, Routine 08/11/2019 AUTOMATED 5:37 PM CDT POCT-GLUCOSE METER Routine 08/11/2019 4:06 PM CDT POCT-GLUCOSE METER Routine 08/11/2019 12:01 PM CDT HEMOGLOBIN AND HEMATOCRIT STAT 08/11/2019 8:35 AM CDT POCT-GLUCOSE METER Routine 08/11/2019 8:08 AM CDT CBC W/PLT COUNT & AUTO Routine 08/11/2019 DIFFERENTIAL 4:53 AM CDT CBC W/PLT COUNT & AUTO Routine 08/11/2019 DIFFERENTIAL 4:53 AM CDT PHOSPHORUS Routine 08/11/2019 4:53 AM CDT MAGNESIUM Routine 08/11/2019 4:53 AM CDT BASIC METABOLIC PANEL (7) Routine 08/11/2019 4:53 AM CDT POCT-GLUCOSE METER Routine 08/10/2019 8:09 PM CDT POCT-GLUCOSE METER Routine 08/10/2019 4:55 PM CDT XR FOOT LEFT 3 VIEW Routine 08/10/2019 3:41 PM CDT POCT-GLUCOSE METER Routine 08/10/2019 12:10 PM CDT POCT-GLUCOSE METER Routine 08/10/2019 7:50 AM CDT CBC W/PLT COUNT & AUTO Routine 08/10/2019 DIFFERENTIAL 5:33 AM CDT FERRITIN Routine 08/10/2019 5:33 AM CDT IRON, TIBC, % SAT. Routine 08/10/2019 (WITHOUT FERRITIN) 5:33 AM CDT VITAMIN B12 AND FOLATE Routine 08/10/2019 5:33 AM CDT CBC W/PLT COUNT & AUTO Routine 08/10/2019 DIFFERENTIAL 5:33 AM CDT PHOSPHORUS Routine 08/10/2019 5:33 AM CDT MAGNESIUM Routine 08/10/2019 5:33 AM CDT BASIC METABOLIC PANEL (7) Routine 08/10/2019 5:33 AM CDT POCT-GLUCOSE METER Routine 2019 9:02 PM CDT HEMODIALYSIS INPATIENT Routine 2019 6:04 PM CDT POCT-GLUCOSE METER Routine 2019 4:16 PM CDT HEPATITIS B SURFACE Routine 2019 ANTIGEN 4:14 PM CDT POCT-GLUCOSE METER Routine 2019 12:31 PM CDT POCT-GLUCOSE METER Routine 2019 8:36 AM CDT CBC W/PLT COUNT & AUTO Routine 2019 DIFFERENTIAL 4:57 AM CDT HEPATIC FUNCTION PANEL Routine 2019 4:57 AM CDT CBC W/PLT COUNT & AUTO Routine 2019 DIFFERENTIAL 4:57 AM CDT PHOSPHORUS Routine 2019 4:57 AM CDT MAGNESIUM Routine 2019 4:57 AM CDT BASIC METABOLIC PANEL (7) Routine 2019 4:57 AM CDT HEMOGLOBIN A1C Routine 2019 4:57 AM CDT POCT-GLUCOSE METER Routine 08/08/2019 8:32 PM CDT POCT-GLUCOSE METER Routine 08/08/2019 5:22 PM CDT POCT-GLUCOSE METER Routine 08/08/2019 1:58 PM CDT POCT-GLUCOSE METER Routine 08/08/2019 11:43 AM CDT SKIN GRAFT,SPLIT 08/08/2019 Skin ulcer, stage 3 , THICKNESS-LOWER EXTREMITY 9:35 AM CDT unspecified ulcer stage (HCC) Case Notes 1.5 Special Needs (PULSE LAVAGE, VERSA JET, WOUND VAC) PLACEMENT,WOUND VAC 08/08/2019 Skin ulcer, stage 3, 9:35 AM CDT unspecified ulcer stage (HCC) Case Notes 1.5 Special Needs (PULSE LAVAGE, VERSA JET, WOUND VAC) SKIN GRAFT,SKIN 08/08/2019 Skin ulcer, stage 3 , SUBSTITUTE 9:35 AM CDT unspecified ulcer s tage (HCC) Case Notes 1.5 Special Needs (PULSE LAVAGE, VERSA JET, WOUND VAC) DEBRIDEMENT/I&D,WOUND 08/08/2019 Skin ulcer, sta ge 3, EXTREMITY LOWER 9:35 AM CDT unspecified ulcer s tage (HCC) Case Notes 1.5 Special Needs (PULSE LAVAGE, VERSA JET, WOUND VAC) LIPID PANEL Add-On 08/08/2019 8:22 AM CDT BASIC METABOLIC PANEL (7) STAT 08/08/2019 8:22 AM CDT POCT-GLUCOSE METER Routine 08/08/2019 7:44 AM CDT HEMOGLOBIN Routine 08/03/2019 9:55 AM CDT POTASSIUM Routine 08/03/2019 9:55 AM CDT SARS-COV2/RT-PCR ([facility] & Routine 08/03/2019 Preop testing REF LABS) 9:55 AM CDT XR FOOT LEFT 3 VIEW Routine 07/20/2019 Foot pain, left 10:45 AM CDT RHYTHM STRIP - SCAN 04/11/2019 3:50 PM UNDERTAKER ASSISTANT RHYTHM STRIP - SCAN 04/10/2019 1:42 PM UNDERTAKER ASSISTANT CARDIAC CATH REPORT - 04/10/2019 SCAN 1:42 PM UNDERTAKER ASSISTANT TRANSFUSION SERVICE 04/08/2019 REPORT - SCAN 5:52 PM UNDERTAKER ASSISTANT POCT-GLUCOSE METER Routine 04/08/2019 11:23 AM UNDERTAKER ASSISTANT POCT-GLUCOSE METER Routine 04/08/2019 7:15 AM UNDERTAKER ASSISTANT CBC (HEMOGRAM ONLY) Routine 04/08/2019 5:36 AM UNDERTAKER ASSISTANT BASIC METABOLIC PANEL (7) Routine 04/08/2019 5:36 AM UNDERTAKER ASSISTANT POCT-GLUCOSE METER Routine 04/07/2019 10:49 PM UNDERTAKER ASSISTANT POCT-GLUCOSE METER Routine 04/07/2019 4:15 PM UNDERTAKER ASSISTANT POCT-ACT Routine 04/07/2019 11:06 AM UNDERTAKER ASSISTANT POCT-ACT Routine 04/07/2019 10:50 AM UNDERTAKER ASSISTANT POCT-ACT Routine 04/07/2019 10:11 AM UNDERTAKER ASSISTANT POCT-ACT Routine 04/07/2019 9:49 AM UNDERTAKER ASSISTANT POCT-ACT Routine 04/07/2019 9:34 AM UNDERTAKER ASSISTANT PERIPHERAL ANGIOS / 04/07/2019 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) (HCC) Case Notes 1st case CBC W/PLT COUNT & AUTO Routine 04/07/2019 DIFFERENTIAL 7:02 AM UNDERTAKER ASSISTANT TYPE AND SCREEN, Routine 04/07/2019 AUTOMATED 7:02 AM UNDERTAKER ASSISTANT CBC W/PLT COUNT & AUTO Routine 04/07/2019 DIFFERENTIAL 7:02 AM UNDERTAKER ASSISTANT BASIC METABOLIC PANEL (7) Routine 04/07/2019 7:02 AM UNDERTAKER ASSISTANT ECG 12-LEAD Routine 04/07/2019 6:54 AM UNDERTAKER ASSISTANT Procedure Note - Interface, External Ris In - 04/07/2019 7:09 AM UNDERTAKER ASSISTANT Ventricula r Rate 70 BPM Atrial Rate 70 BPM P-R Interval 230 ms QRS Duration 96 ms Q-T Interval 406 ms QTC Calculatio n([place]) 438 ms P [place] 27 degrees R [place] -24 degrees T [place] 62 degrees Sinus rhythm with 1st degree A-V block Possible Anterior infarct (cited on or before ) Abnormal ECG When compared with ECG of 15:49, No significan t change was found ECG 12-LEAD Routine 04/07/2019 6:54 AM UNDERTAKER ASSISTANT RHYTHM STRIP - SCAN 03/15/2019 11:40 AM UNDERTAKER ASSISTANT POCT-GLUCOSE METER Routine 03/13/2019 5:22 PM UNDERTAKER ASSISTANT POCT-GLUCOSE METER Routine 03/13/2019 12:46 PM UNDERTAKER ASSISTANT PHOSPHORUS Routine 03/13/2019 8:45 AM UNDERTAKER ASSISTANT BASIC METABOLIC PANEL (7) Routine 03/13/2019 8:45 AM UNDERTAKER ASSISTANT HEMOGLOBIN AND HEMATOCRIT Routine 03/13/2019 7:27 AM UNDERTAKER ASSISTANT POCT-GLUCOSE METER Routine 03/12/2019 9:53 PM UNDERTAKER ASSISTANT TRANSFUSION SERVICE 03/12/2019 REPORT - SCAN 6:00 PM UNDERTAKER ASSISTANT POCT-GLUCOSE METER Routine 03/12/2019 5:46 PM UNDERTAKER ASSISTANT POCT-GLUCOSE METER Routine 03/12/2019 11:56 AM UNDERTAKER ASSISTANT POCT-GLUCOSE METER Routine 03/12/2019 8:28 AM UNDERTAKER ASSISTANT HEMOGLOBIN AND HEMATOCRIT Routine 03/12/2019 4:03 AM UNDERTAKER ASSISTANT BASIC METABOLIC PANEL (7) Routine 03/12/2019 4:02 AM UNDERTAKER ASSISTANT POCT-GLUCOSE METER Routine 03/11/2019 10:24 PM UNDERTAKER ASSISTANT TRANSFUSION SERVICE 03/11/2019 REPORT - SCAN 6:01 PM UNDERTAKER ASSISTANT HEMOGLOBIN AND HEMATOCRIT Routine 03/11/2019 5:54 PM UNDERTAKER ASSISTANT POCT-GLUCOSE METER Routine 03/11/2019 5:35 PM UNDERTAKER ASSISTANT POCT-GLUCOSE METER Routine 03/11/2019 1:09 PM UNDERTAKER ASSISTANT VEIN MAPPING LEGS Routine 03/11/2019 BILATERAL 10:25 AM UNDERTAKER ASSISTANT POCT-GLUCOSE METER Routine 03/11/2019 7:31 AM UNDERTAKER ASSISTANT PREPARE RBC STAT 03/11/2019 6:56 AM UNDERTAKER ASSISTANT HEMOGLOBIN AND HEMATOCRIT Routine 03/11/2019 4:16 AM UNDERTAKER ASSISTANT BASIC METABOLIC PANEL (7) Routine 03/11/2019 4:16 AM UNDERTAKER ASSISTANT PREPARE RBC Routine 03/10/2019 11:54 PM UNDERTAKER ASSISTANT POCT-GLUCOSE METER Routine 03/10/2019 9:35 PM UNDERTAKER ASSISTANT HEMOGLOBIN AND HEMATOCRIT Routine 03/10/2019 6:20 PM UNDERTAKER ASSISTANT TRANSFUSION SERVICE 03/10/2019 REPORT - SCAN 6:01 PM UNDERTAKER ASSISTANT POCT-GLUCOSE METER Routine 03/10/2019 5:09 PM UNDERTAKER ASSISTANT POCT-GLUCOSE METER Routine 03/10/2019 1:35 PM UNDERTAKER ASSISTANT BASIC METABOLIC PANEL (7) Routine 03/10/2019 11:33 AM UNDERTAKER ASSISTANT HEMODIALYSIS INPATIENT Routine 03/10/2019 9:19 AM UNDERTAKER ASSISTANT BLOOD CULTURE Routine 03/10/2019 8:33 AM UNDERTAKER ASSISTANT CBC W/PLT COUNT & AUTO Routine 03/10/2019 DIFFERENTIAL 8:32 AM UNDERTAKER ASSISTANT CBC W/PLT COUNT & AUTO Add-On 03/10/2019 DIFFERENTIAL 8:32 AM UNDERTAKER ASSISTANT FERRITIN Routine 03/10/2019 8:32 AM UNDERTAKER ASSISTANT IRON, TIBC, % SAT. Routine 03/10/2019 (WITHOUT FERRITIN) 8:32 AM UNDERTAKER ASSISTANT HEMOGLOBIN AND HEMATOCRIT Routine 03/10/2019 8:32 AM UNDERTAKER ASSISTANT POCT-GLUCOSE METER Routine 03/10/2019 7:33 AM UNDERTAKER ASSISTANT HEMOGLOBIN AND HEMATOCRIT Routine 03/09/2019 11:29 PM UNDERTAKER ASSISTANT POCT-GLUCOSE METER Routine 03/09/2019 11:16 PM UNDERTAKER ASSISTANT TRANSFUSE LEUKO-REDUCED Routine 03/09/2019 RED BLOOD CELLS 8:47 PM UNDERTAKER ASSISTANT POCT-GLUCOSE METER Routine 03/09/2019 7:51 PM UNDERTAKER ASSISTANT ARTERIAL DOPPLER LEGS Routine 03/09/2019 BILATERAL 6:51 PM UNDERTAKER ASSISTANT TRANSFUSION SERVICE 03/09/2019 REPORT - SCAN 6:01 PM UNDERTAKER ASSISTANT PROTHROMBIN TIME/INR Routine 03/09/2019 2:56 PM UNDERTAKER ASSISTANT POCT-GLUCOSE METER Routine 03/09/2019 1:14 PM UNDERTAKER ASSISTANT CBC W/PLT COUNT & AUTO Routine 03/09/2019 DIFFERENTIAL 11:53 AM UNDERTAKER ASSISTANT CBC W/PLT COUNT & AUTO Routine 03/09/2019 DIFFERENTIAL 11:53 AM UNDERTAKER ASSISTANT BASIC METABOLIC PANEL (7) Routine 03/09/2019 11:53 AM UNDERTAKER ASSISTANT BLOOD CULTURE Routine 03/09/2019 11:53 AM UNDERTAKER ASSISTANT POCT-GLUCOSE METER Routine 03/09/2019 7:49 AM UNDERTAKER ASSISTANT HEMOGLOBIN AND HEMATOCRIT Routine 03/09/2019 5:45 AM UNDERTAKER ASSISTANT HEPATITIS B SURFACE STAT 03/09/2019 ANTIGEN 5:45 AM UNDERTAKER ASSISTANT XR FOOT LEFT 3 VIEW Routine 03/08/2019 8:56 PM UNDERTAKER ASSISTANT POCT-GLUCOSE METER Routine 03/08/2019 8:29 PM UNDERTAKER ASSISTANT TRANSFUSE LEUKO-REDUCED Routine 03/08/2019 RED BLOOD CELLS 6:43 PM UNDERTAKER ASSISTANT TRANSFUSION SERVICE 03/08/2019 REPORT - SCAN 6:18 PM UNDERTAKER ASSISTANT HEMODIALYSIS INPATIENT Routine 03/08/2019 3:32 PM UNDERTAKER ASSISTANT POCT-GLUCOSE METER Routine 03/08/2019 11:39 AM UNDERTAKER ASSISTANT POCT-GLUCOSE METER Routine 03/08/2019 9:42 AM UNDERTAKER ASSISTANT PREPARE LEUKO-REDUCED RBC Routine 03/08/2019 9:39 AM UNDERTAKER ASSISTANT HEMOGLOBIN AND HEMATOCRIT Routine 03/08/2019 6:21 AM UNDERTAKER ASSISTANT CBC W/PLT COUNT & AUTO STAT 03/07/2019 DIFFERENTIAL 10:27 PM UNDERTAKER ASSISTANT TYPE AND SCREEN, STAT 03/07/2019 AUTOMATED 10:27 PM UNDERTAKER ASSISTANT PHOSPHORUS Add-On 03/07/2019 10:27 PM UNDERTAKER ASSISTANT PT/APTT STAT 03/07/2019 10:27 PM UNDERTAKER ASSISTANT CBC W/PLT COUNT & AUTO STAT 03/07/2019 DIFFERENTIAL 10:27 PM UNDERTAKER ASSISTANT BASIC METABOLIC PANEL (7) STAT 03/07/2019 10:27 PM UNDERTAKER ASSISTANT REPORT OF PROCEDURE - 02/27/2019 ENDOSCOPY SCAN 8:41 AM UNDERTAKER ASSISTANT RHYTHM STRIP - SCAN 02/27/2019 8:41 AM UNDERTAKER ASSISTANT TRANSFUSION SERVICE 02/25/2019 REPORT - SCAN 6:04 PM UNDERTAKER ASSISTANT TRANSFUSION SERVICE 02/23/2019 REPORT - SCAN 6:02 PM UNDERTAKER ASSISTANT TISSUE EXAM AP Routine 02/23/2019 8:18 AM UNDERTAKER ASSISTANT UPPER ENDOSCOPY 02/23/2019 Gastrointestinal 8:00 AM UNDERTAKER ASSISTANT hemorrhage, unspecified gastrointestinal hemorrhage type POCT-GLUCOSE METER Routine 02/23/2019 6:51 AM UNDERTAKER ASSISTANT CBC W/PLT COUNT & AUTO Routine 02/23/2019 DIFFERENTIAL 5:59 AM UNDERTAKER ASSISTANT CBC W/PLT COUNT & AUTO Routine 02/23/2019 DIFFERENTIAL 5:59 AM UNDERTAKER ASSISTANT BASIC METABOLIC PANEL (7) Routine 02/23/2019 5:59 AM UNDERTAKER ASSISTANT PHOSPHORUS Routine 02/23/2019 5:59 AM UNDERTAKER ASSISTANT MAGNESIUM Routine 02/23/2019 5:59 AM UNDERTAKER ASSISTANT POCT-GLUCOSE METER Routine 02/22/2019 8:56 PM UNDERTAKER ASSISTANT PREPARE LEUKO-REDUCED RBC Routine 02/22/2019 4:47 PM UNDERTAKER ASSISTANT POCT-GLUCOSE METER Routine 02/22/2019 1:08 PM UNDERTAKER ASSISTANT TYPE AND SCREEN, STAT 02/22/2019 AUTOMATED 11:01 AM UNDERTAKER ASSISTANT HEPATITIS B SURFACE Routine 02/22/2019 ANTIGEN 9:56 AM UNDERTAKER ASSISTANT HEPATITIS B SURFACE Routine 02/22/2019 ANTIBODY 9:56 AM UNDERTAKER ASSISTANT POCT-GLUCOSE METER Routine 02/22/2019 6:37 AM UNDERTAKER ASSISTANT CBC W/PLT COUNT & AUTO Routine 02/22/2019 DIFFERENTIAL 5:31 AM UNDERTAKER ASSISTANT CBC W/PLT COUNT & AUTO Routine 02/22/2019 DIFFERENTIAL 5:31 AM UNDERTAKER ASSISTANT BASIC METABOLIC PANEL (7) Routine 02/22/2019 5:31 AM UNDERTAKER ASSISTANT PHOSPHORUS Routine 02/22/2019 5:31 AM UNDERTAKER ASSISTANT MAGNESIUM Routine 02/22/2019 5:31 AM UNDERTAKER ASSISTANT TROPONIN I STAT 02/22/2019 5:31 AM UNDERTAKER ASSISTANT POCT-GLUCOSE METER Routine 02/21/2019 8:42 PM UNDERTAKER ASSISTANT HEMODIALYSIS INPATIENT Routine 02/21/2019 7:03 PM UNDERTAKER ASSISTANT POCT-GLUCOSE METER Routine 02/21/2019 4:20 PM UNDERTAKER ASSISTANT POCT-GLUCOSE METER Routine 02/21/2019 11:44 AM UNDERTAKER ASSISTANT POCT-GLUCOSE METER Routine 02/21/2019 5:57 AM UNDERTAKER ASSISTANT CBC W/PLT COUNT & AUTO Routine 02/21/2019 DIFFERENTIAL 4:20 AM UNDERTAKER ASSISTANT CBC W/PLT COUNT & AUTO Routine 02/21/2019 DIFFERENTIAL 4:20 AM UNDERTAKER ASSISTANT PHOSPHORUS Routine 02/21/2019 4:20 AM UNDERTAKER ASSISTANT MAGNESIUM Routine 02/21/2019 4:20 AM UNDERTAKER ASSISTANT BASIC METABOLIC PANEL (7) Routine 02/21/2019 4:20 AM UNDERTAKER ASSISTANT TROPONIN I STAT 02/21/2019 12:15 AM UNDERTAKER ASSISTANT POCT-GLUCOSE METER Routine 02/20/2019 9:43 PM UNDERTAKER ASSISTANT POCT-GLUCOSE METER Routine 02/20/2019 6:29 PM UNDERTAKER ASSISTANT POCT-GLUCOSE METER Routine 02/20/2019 4:57 PM UNDERTAKER ASSISTANT POCT-GLUCOSE METER Routine 02/20/2019 3:25 PM UNDERTAKER ASSISTANT POCT-GLUCOSE METER Routine 02/20/2019 2:18 PM UNDERTAKER ASSISTANT POCT-GLUCOSE METER Routine 02/20/2019 1:07 PM UNDERTAKER ASSISTANT POCT-GLUCOSE METER Routine 02/20/2019 12:00 PM UNDERTAKER ASSISTANT POCT-GLUCOSE METER Routine 02/20/2019 11:03 AM UNDERTAKER ASSISTANT POCT-GLUCOSE METER Routine 02/20/2019 9:34 AM UNDERTAKER ASSISTANT POCT-GLUCOSE METER Routine 02/20/2019 7:18 AM UNDERTAKER ASSISTANT POCT-GLUCOSE METER Routine 02/20/2019 6:23 AM UNDERTAKER ASSISTANT TROPONIN I STAT 02/20/2019 5:18 AM UNDERTAKER ASSISTANT BASIC METABOLIC PANEL (7) STAT 02/20/2019 5:18 AM UNDERTAKER ASSISTANT POCT-GLUCOSE METER Routine 02/20/2019 4:47 AM UNDERTAKER ASSISTANT XR CHEST 1 VIEW STAT 02/20/2019 PORTABLE/BEDSIDE 4:16 AM UNDERTAKER ASSISTANT POCT-GLUCOSE METER Routine 02/20/2019 4:08 AM UNDERTAKER ASSISTANT ED ECG INTERPRETATION Routine 02/20/2019 3:25 AM UNDERTAKER ASSISTANT ED ECG INTERPRETATION Routine 02/20/2019 3:25 AM UNDERTAKER ASSISTANT PROCEDURAL SEDATION Routine 02/20/2019 3:25 AM UNDERTAKER ASSISTANT ELECTRICAL CARDIOVERSION Routine 02/20/2019 3:25 AM UNDERTAKER ASSISTANT POCT-GLUCOSE METER Routine 02/20/2019 3:11 AM UNDERTAKER ASSISTANT TROPONIN I STAT 02/20/2019 2:52 AM UNDERTAKER ASSISTANT MAGNESIUM STAT 02/20/2019 2:52 AM UNDERTAKER ASSISTANT BASIC METABOLIC PANEL (7) STAT 02/20/2019 2:52 AM UNDERTAKER ASSISTANT CBC W/PLT COUNT & AUTO STAT 02/20/2019 DIFFERENTIAL 2:51 AM UNDERTAKER ASSISTANT APTT STAT 02/20/2019 2:51 AM UNDERTAKER ASSISTANT PROTHROMBIN TIME/INR STAT 02/20/2019 2:51 AM UNDERTAKER ASSISTANT CBC W/PLT COUNT & AUTO STAT 02/20/2019 DIFFERENTIAL 2:51 AM UNDERTAKER ASSISTANT B-TYPE NATRIURETIC FACTOR STAT 02/20/2019 (BNP) 2:51 AM UNDERTAKER ASSISTANT TRANSFUSION SERVICE 02/12/2019 REPORT - SCAN 6:00 PM UNDERTAKER ASSISTANT TRANSFUSION SERVICE 02/10/2019 REPORT - SCAN 6:00 PM UNDERTAKER ASSISTANT RHYTHM STRIP - SCAN 02/10/2019 2:01 PM UNDERTAKER ASSISTANT REPORT OF PROCEDURE - 02/10/2019 ENDOSCOPY SCAN 2:01 PM UNDERTAKER ASSISTANT PREPARE LEUKO-REDUCED RBC Routine 02/09/2019 11:54 PM UNDERTAKER ASSISTANT TRANSFUSION SERVICE 02/09/2019 REPORT - SCAN 6:01 PM UNDERTAKER ASSISTANT PREPARE RBC Routine 02/09/2019 1:18 PM UNDERTAKER ASSISTANT POCT-GLUCOSE METER Routine 02/09/2019 8:32 AM UNDERTAKER ASSISTANT HEMOGLOBIN AND HEMATOCRIT Routine 02/09/2019 5:27 AM UNDERTAKER ASSISTANT TRANSFUSE LEUKO-REDUCED Routine 02/09/2019 RED BLOOD CELLS 12:39 AM UNDERTAKER ASSISTANT POCT-GLUCOSE METER Routine 02/09/2019 12:12 AM UNDERTAKER ASSISTANT PREPARE RBC Routine 02/08/2019 11:54 PM UNDERTAKER ASSISTANT POCT-GLUCOSE METER Routine 02/08/2019 8:03 PM UNDERTAKER ASSISTANT TRANSFUSE LEUKO-REDUCED Routine 02/08/2019 RED BLOOD CELLS 6:49 PM UNDERTAKER ASSISTANT TRANSFUSION SERVICE 02/08/2019 REPORT - SCAN 6:01 PM UNDERTAKER ASSISTANT POCT-GLUCOSE METER Routine 02/08/2019 4:34 PM UNDERTAKER ASSISTANT POCT-GLUCOSE METER Routine 02/08/2019 1:51 PM UNDERTAKER ASSISTANT HEMODIALYSIS INPATIENT Routine 02/08/2019 12:14 PM UNDERTAKER ASSISTANT POCT-GLUCOSE METER Routine 02/08/2019 8:09 AM UNDERTAKER ASSISTANT CBC W/PLT COUNT & AUTO Routine 02/08/2019 DIFFERENTIAL 4:31 AM UNDERTAKER ASSISTANT CBC W/PLT COUNT & AUTO Routine 02/08/2019 DIFFERENTIAL 4:31 AM UNDERTAKER ASSISTANT PHOSPHORUS Routine 02/08/2019 4:31 AM UNDERTAKER ASSISTANT MAGNESIUM Routine 02/08/2019 4:31 AM UNDERTAKER ASSISTANT BASIC METABOLIC PANEL (7) Routine 02/08/2019 4:31 AM UNDERTAKER ASSISTANT POCT-GLUCOSE METER Routine 02/08/2019 12:08 AM UNDERTAKER ASSISTANT TRANSFUSE LEUKO-REDUCED Routine 02/07/2019 RED BLOOD CELLS 10:25 PM UNDERTAKER ASSISTANT POCT-GLUCOSE METER Routine 02/07/2019 9:30 PM UNDERTAKER ASSISTANT POCT-GLUCOSE METER Routine 02/07/2019 8:00 PM UNDERTAKER ASSISTANT TRANSFUSION SERVICE 02/07/2019 REPORT - SCAN 6:50 PM UNDERTAKER ASSISTANT TYPE AND SCREEN, Routine 02/07/2019 AUTOMATED 3:32 PM UNDERTAKER ASSISTANT POCT-GLUCOSE METER Routine 02/07/2019 1:01 PM UNDERTAKER ASSISTANT POCT-GLUCOSE METER Routine 02/07/2019 8:16 AM UNDERTAKER ASSISTANT CBC W/PLT COUNT & AUTO Routine 02/07/2019 DIFFERENTIAL 6:13 AM UNDERTAKER ASSISTANT CBC W/PLT COUNT & AUTO Routine 02/07/2019 DIFFERENTIAL 6:13 AM UNDERTAKER ASSISTANT PHOSPHORUS Routine 02/07/2019 6:13 AM UNDERTAKER ASSISTANT MAGNESIUM Routine 02/07/2019 6:13 AM UNDERTAKER ASSISTANT BASIC METABOLIC PANEL (7) Routine 02/07/2019 6:13 AM UNDERTAKER ASSISTANT PREPARE LEUKO-REDUCED RBC Routine 02/06/2019 11:54 PM UNDERTAKER ASSISTANT POCT-GLUCOSE METER Routine 02/06/2019 10:20 PM UNDERTAKER ASSISTANT POCT-GLUCOSE METER Routine 02/06/2019 8:18 PM UNDERTAKER ASSISTANT HEMODIALYSIS INPATIENT Routine 02/06/2019 6:10 PM UNDERTAKER ASSISTANT TRANSFUSION SERVICE 02/06/2019 REPORT - SCAN 6:00 PM UNDERTAKER ASSISTANT POCT-GLUCOSE METER Routine 02/06/2019 5:07 PM UNDERTAKER ASSISTANT POCT-GLUCOSE METER Routine 02/06/2019 2:41 PM UNDERTAKER ASSISTANT POCT-GLUCOSE METER Routine 02/06/2019 8:26 AM UNDERTAKER ASSISTANT CBC W/PLT COUNT & AUTO Routine 02/06/2019 DIFFERENTIAL 4:42 AM UNDERTAKER ASSISTANT CBC W/PLT COUNT & AUTO Routine 02/06/2019 DIFFERENTIAL 4:42 AM UNDERTAKER ASSISTANT PHOSPHORUS Routine 02/06/2019 4:42 AM UNDERTAKER ASSISTANT MAGNESIUM Routine 02/06/2019 4:42 AM UNDERTAKER ASSISTANT BASIC METABOLIC PANEL (7) Routine 02/06/2019 4:42 AM UNDERTAKER ASSISTANT PREPARE LEUKO-REDUCED RBC Routine 02/05/2019 11:54 PM UNDERTAKER ASSISTANT POCT-GLUCOSE METER Routine 02/05/2019 8:57 PM UNDERTAKER ASSISTANT TRANSFUSE LEUKO-REDUCED Routine 02/05/2019 RED BLOOD CELLS 6:48 PM UNDERTAKER ASSISTANT TRANSFUSION SERVICE 02/05/2019 REPORT - SCAN 6:00 PM UNDERTAKER ASSISTANT POCT-GLUCOSE METER Routine 02/05/2019 3:50 PM UNDERTAKER ASSISTANT POCT-GLUCOSE METER Routine 02/05/2019 10:46 AM UNDERTAKER ASSISTANT CBC W/PLT COUNT & AUTO Routine 02/05/2019 DIFFERENTIAL 4:37 AM UNDERTAKER ASSISTANT CBC W/PLT COUNT & AUTO Routine 02/05/2019 DIFFERENTIAL 4:37 AM UNDERTAKER ASSISTANT PHOSPHORUS Routine 02/05/2019 4:37 AM UNDERTAKER ASSISTANT MAGNESIUM Routine 02/05/2019 4:37 AM UNDERTAKER ASSISTANT BASIC METABOLIC PANEL (7) Routine 02/05/2019 4:37 AM UNDERTAKER ASSISTANT PREPARE LEUKO-REDUCED RBC Routine 02/04/2019 11:54 PM UNDERTAKER ASSISTANT TRANSFUSE LEUKO-REDUCED Routine 02/04/2019 RED BLOOD CELLS 9:23 PM UNDERTAKER ASSISTANT POCT-GLUCOSE METER Routine 02/04/2019 7:36 PM UNDERTAKER ASSISTANT TRANSFUSION SERVICE 02/04/2019 REPORT - SCAN 6:00 PM UNDERTAKER ASSISTANT TYPE AND SCREEN, Routine 02/04/2019 AUTOMATED 5:01 PM UNDERTAKER ASSISTANT POCT-GLUCOSE METER Routine 02/04/2019 4:11 PM UNDERTAKER ASSISTANT POCT-GLUCOSE METER Routine 02/04/2019 9:53 AM UNDERTAKER ASSISTANT CBC W/PLT COUNT & AUTO Routine 02/04/2019 DIFFERENTIAL 5:29 AM UNDERTAKER ASSISTANT CBC W/PLT COUNT & AUTO Routine 02/04/2019 DIFFERENTIAL 5:29 AM UNDERTAKER ASSISTANT PHOSPHORUS Routine 02/04/2019 5:29 AM UNDERTAKER ASSISTANT MAGNESIUM Routine 02/04/2019 5:29 AM UNDERTAKER ASSISTANT BASIC METABOLIC PANEL (7) Routine 02/04/2019 5:29 AM UNDERTAKER ASSISTANT TRANSFUSION SERVICE 02/03/2019 REPORT - SCAN 6:04 PM UNDERTAKER ASSISTANT ANTIBODY IDENTIFICATION STAT 02/03/2019 4:05 PM UNDERTAKER ASSISTANT POCT-GLUCOSE METER Routine 02/03/2019 3:19 PM UNDERTAKER ASSISTANT LACTIC ACID, VENOUS STAT 02/03/2019 8:54 AM UNDERTAKER ASSISTANT BLOOD CULTURE Routine 02/03/2019 8:53 AM UNDERTAKER ASSISTANT POCT-GLUCOSE METER Routine 02/03/2019 8:35 AM UNDERTAKER ASSISTANT HEMODIALYSIS INPATIENT Routine 02/03/2019 8:32 AM UNDERTAKER ASSISTANT TRANSFUSE LEUKO-REDUCED Routine 02/03/2019 RED BLOOD CELLS 8:02 AM UNDERTAKER ASSISTANT CBC W/PLT COUNT & AUTO Routine 02/03/2019 DIFFERENTIAL 5:14 AM UNDERTAKER ASSISTANT CBC W/PLT COUNT & AUTO Routine 02/03/2019 DIFFERENTIAL 5:14 AM UNDERTAKER ASSISTANT PHOSPHORUS Routine 02/03/2019 5:14 AM UNDERTAKER ASSISTANT MAGNESIUM Routine 02/03/2019 5:14 AM UNDERTAKER ASSISTANT BASIC METABOLIC PANEL (7) Routine 02/03/2019 5:14 AM UNDERTAKER ASSISTANT POCT-GLUCOSE METER Routine 02/03/2019 4:58 AM UNDERTAKER ASSISTANT PREPARE RBC Routine 02/03/2019 3:24 AM UNDERTAKER ASSISTANT HEPATITIS B PANEL Routine 02/03/2019 12:25 AM UNDERTAKER ASSISTANT HEPATITIS C ANTIBODY Routine 02/03/2019 12:25 AM UNDERTAKER ASSISTANT HIV-1 ANTIGEN WITH Routine 02/03/2019 HIV-1/2 ANTIBODY 12:25 AM UNDERTAKER ASSISTANT POCT-GLUCOSE METER Routine 02/02/2019 9:15 PM UNDERTAKER ASSISTANT CBC W/PLT COUNT & AUTO STAT 02/02/2019 DIFFERENTIAL 7:57 PM UNDERTAKER ASSISTANT DIRECT AHG (KAYLENE)/DIRECT STAT 02/02/2019 KAYDEN 7:57 PM UNDERTAKER ASSISTANT TYPE AND SCREEN, STAT 02/02/2019 AUTOMATED 7:57 PM UNDERTAKER ASSISTANT B-TYPE NATRIURETIC FACTOR STAT 02/02/2019 (BNP) 7:57 PM UNDERTAKER ASSISTANT PT/APTT STAT 02/02/2019 7:57 PM UNDERTAKER ASSISTANT CBC W/PLT COUNT & AUTO STAT 02/02/2019 DIFFERENTIAL 7:57 PM UNDERTAKER ASSISTANT TROPONIN I STAT 02/02/2019 7:57 PM UNDERTAKER ASSISTANT MAGNESIUM STAT 02/02/2019 7:57 PM UNDERTAKER ASSISTANT BASIC METABOLIC PANEL (7) STAT 02/02/2019 7:57 PM UNDERTAKER ASSISTANT XR CHEST 1 VIEW STAT 02/02/2019 PORTABLE/BEDSIDE 7:31 PM UNDERTAKER ASSISTANT ECG 12-LEAD STAT 02/02/2019 3:49 PM UNDERTAKER ASSISTANT CARDIAC CATH REPORT - 01/31/2019 SCAN 8:32 AM UNDERTAKER ASSISTANT RHYTHM STRIP - SCAN 01/31/2019 8:32 AM UNDERTAKER ASSISTANT POCT-GLUCOSE METER Routine 01/25/2019 9:20 PM UNDERTAKER ASSISTANT HEMODIALYSIS INPATIENT Routine 01/25/2019 8:35 PM UNDERTAKER ASSISTANT POCT-GLUCOSE METER Routine 01/25/2019 6:08 PM UNDERTAKER ASSISTANT POCT-GLUCOSE METER Routine 01/25/2019 11:05 AM UNDERTAKER ASSISTANT POCT-GLUCOSE METER Routine 01/25/2019 8:00 AM UNDERTAKER ASSISTANT CBC W/PLT COUNT & AUTO Routine 01/25/2019 DIFFERENTIAL 4:26 AM UNDERTAKER ASSISTANT CBC W/PLT COUNT & AUTO Routine 01/25/2019 DIFFERENTIAL 4:26 AM UNDERTAKER ASSISTANT BASIC METABOLIC PANEL (7) Routine 01/25/2019 4:26 AM UNDERTAKER ASSISTANT POCT-GLUCOSE METER Routine 01/24/2019 9:23 PM UNDERTAKER ASSISTANT POCT-GLUCOSE METER Routine 01/24/2019 5:09 PM UNDERTAKER ASSISTANT POCT-GLUCOSE METER Routine 01/24/2019 12:17 PM UNDERTAKER ASSISTANT XR FOOT LEFT 3 VIEW Routine 01/24/2019 10:49 AM UNDERTAKER ASSISTANT POCT-GLUCOSE METER Routine 01/24/2019 9:52 AM UNDERTAKER ASSISTANT TISSUE EXAM AP Routine 01/24/2019 8:35 AM UNDERTAKER ASSISTANT SKIN GRAFT,SKIN 01/24/2019 Non-healing wound o f left SUBSTITUTE 7:30 AM UNDERTAKER ASSISTANT heel DEBRIDEMENT/I&D,WOUND 01/24/2019 Non-healing wou nd of left EXTREMITY LOWER 7:30 AM UNDERTAKER ASSISTANT heel CBC W/PLT COUNT & AUTO Routine 01/24/2019 DIFFERENTIAL 3:21 AM UNDERTAKER ASSISTANT CBC W/PLT COUNT & AUTO Routine 01/24/2019 DIFFERENTIAL 3:21 AM UNDERTAKER ASSISTANT BASIC METABOLIC PANEL (7) Routine 01/24/2019 3:21 AM UNDERTAKER ASSISTANT POCT-GLUCOSE METER Routine 01/23/2019 9:17 PM UNDERTAKER ASSISTANT POCT-GLUCOSE METER Routine 01/23/2019 5:34 PM UNDERTAKER ASSISTANT POCT-GLUCOSE METER Routine 01/23/2019 12:24 PM UNDERTAKER ASSISTANT POCT-GLUCOSE METER Routine 01/23/2019 8:13 AM UNDERTAKER ASSISTANT CBC W/PLT COUNT & AUTO Routine 01/23/2019 DIFFERENTIAL 4:34 AM UNDERTAKER ASSISTANT CBC W/PLT COUNT & AUTO Routine 01/23/2019 DIFFERENTIAL 4:34 AM UNDERTAKER ASSISTANT BASIC METABOLIC PANEL (7) Routine 01/23/2019 4:34 AM UNDERTAKER ASSISTANT POCT-GLUCOSE METER Routine 01/22/2019 9:10 PM UNDERTAKER ASSISTANT POCT-GLUCOSE METER Routine 01/22/2019 3:52 PM UNDERTAKER ASSISTANT POCT-GLUCOSE METER Routine 01/22/2019 12:14 PM UNDERTAKER ASSISTANT POCT-GLUCOSE METER Routine 01/22/2019 7:05 AM UNDERTAKER ASSISTANT CBC W/PLT COUNT & AUTO Routine 01/22/2019 DIFFERENTIAL 4:42 AM UNDERTAKER ASSISTANT CBC W/PLT COUNT & AUTO Routine 01/22/2019 DIFFERENTIAL 4:42 AM UNDERTAKER ASSISTANT BASIC METABOLIC PANEL (7) Routine 01/22/2019 4:42 AM UNDERTAKER ASSISTANT POCT-GLUCOSE METER Routine 01/21/2019 11:00 PM UNDERTAKER ASSISTANT TRANSFUSION SERVICE 01/21/2019 REPORT - SCAN 6:03 PM UNDERTAKER ASSISTANT POCT-GLUCOSE METER Routine 01/21/2019 5:42 PM UNDERTAKER ASSISTANT POCT-GLUCOSE METER Routine 01/21/2019 12:11 PM UNDERTAKER ASSISTANT POCT-GLUCOSE METER Routine 01/21/2019 6:57 AM UNDERTAKER ASSISTANT CBC W/PLT COUNT & AUTO Routine 01/21/2019 DIFFERENTIAL 4:13 AM UNDERTAKER ASSISTANT CBC W/PLT COUNT & AUTO Routine 01/21/2019 DIFFERENTIAL 4:13 AM UNDERTAKER ASSISTANT BASIC METABOLIC PANEL (7) Routine 01/21/2019 4:13 AM UNDERTAKER ASSISTANT POCT-GLUCOSE METER Routine 01/20/2019 7:59 PM UNDERTAKER ASSISTANT TRANSFUSION SERVICE 01/20/2019 REPORT - SCAN 6:03 PM UNDERTAKER ASSISTANT POCT-GLUCOSE METER Routine 01/20/2019 2:37 PM UNDERTAKER ASSISTANT POCT-ACT Routine 01/20/2019 1:08 PM UNDERTAKER ASSISTANT HEMOGLOBIN AND HEMATOCRIT STAT 01/20/2019 1:04 PM UNDERTAKER ASSISTANT PERIPHERAL ANGIOS & IVUS 01/20/2019 Ischemia 12:34 PM UNDERTAKER ASSISTANT Case Notes 942 POCT-GLUCOSE METER Routine 01/20/2019 11:27 AM UNDERTAKER ASSISTANT HEMODIALYSIS INPATIENT Routine 01/20/2019 9:12 AM UNDERTAKER ASSISTANT POCT-GLUCOSE METER Routine 01/20/2019 7:41 AM UNDERTAKER ASSISTANT CBC W/PLT COUNT & AUTO Routine 01/20/2019 DIFFERENTIAL 4:09 AM UNDERTAKER ASSISTANT VANCOMYCIN LEVEL, RANDOM Routine 01/20/2019 4:09 AM UNDERTAKER ASSISTANT CBC W/PLT COUNT & AUTO Routine 01/20/2019 DIFFERENTIAL 4:09 AM UNDERTAKER ASSISTANT BASIC METABOLIC PANEL (7) Routine 01/20/2019 4:09 AM UNDERTAKER ASSISTANT PREPARE LEUKO-REDUCED RBC Routine 01/19/2019 11:54 PM UNDERTAKER ASSISTANT POCT-GLUCOSE METER Routine 01/19/2019 9:44 PM UNDERTAKER ASSISTANT TRANSFUSION SERVICE 01/19/2019 REPORT - SCAN 5:54 PM UNDERTAKER ASSISTANT POCT-GLUCOSE METER Routine 01/19/2019 5:28 PM UNDERTAKER ASSISTANT POCT-GLUCOSE METER Routine 01/19/2019 11:43 AM UNDERTAKER ASSISTANT POCT-GLUCOSE METER Routine 01/19/2019 7:29 AM UNDERTAKER ASSISTANT CBC W/PLT COUNT & AUTO Routine 01/19/2019 DIFFERENTIAL 3:18 AM UNDERTAKER ASSISTANT VANCOMYCIN LEVEL, RANDOM Routine 01/19/2019 3:18 AM UNDERTAKER ASSISTANT CBC W/PLT COUNT & AUTO Routine 01/19/2019 DIFFERENTIAL 3:18 AM UNDERTAKER ASSISTANT BASIC METABOLIC PANEL (7) Routine 01/19/2019 3:18 AM UNDERTAKER ASSISTANT PHOSPHORUS Routine 01/19/2019 3:18 AM UNDERTAKER ASSISTANT MAGNESIUM Routine 01/19/2019 3:18 AM UNDERTAKER ASSISTANT CALCIUM, IONIZED Routine 01/19/2019 3:18 AM UNDERTAKER ASSISTANT HEMODIALYSIS INPATIENT Routine 01/18/2019 10:32 PM UNDERTAKER ASSISTANT POCT-GLUCOSE METER Routine 01/18/2019 10:28 PM UNDERTAKER ASSISTANT TRANSFUSE LEUKO-REDUCED Routine 01/18/2019 RED BLOOD CELLS 9:34 PM UNDERTAKER ASSISTANT TYPE AND SCREEN, Routine 01/18/2019 AUTOMATED 6:25 PM UNDERTAKER ASSISTANT POCT-GLUCOSE METER Routine 01/18/2019 4:33 PM UNDERTAKER ASSISTANT POCT-GLUCOSE METER Routine 01/18/2019 12:22 PM UNDERTAKER ASSISTANT XR FOOT LEFT 3 VIEW Routine 01/18/2019 11:09 AM UNDERTAKER ASSISTANT ANAEROBIC CULTURE Routine 01/18/2019 9:17 AM UNDERTAKER ASSISTANT SURGICALLY OBTAINED Routine 01/18/2019 CULTURE + GRAM STAIN 9:17 AM UNDERTAKER ASSISTANT ANAEROBIC CULTURE Routine 01/18/2019 9:15 AM UNDERTAKER ASSISTANT SURGICALLY OBTAINED Routine 01/18/2019 CULTURE + GRAM STAIN 9:15 AM UNDERTAKER ASSISTANT TISSUE EXAM AP Routine 01/18/2019 9:15 AM UNDERTAKER ASSISTANT I&D,BONE FOOT 01/18/2019 Diabetic foot infec tion 8:00 AM UNDERTAKER ASSISTANT (HCC) Special Needs (SAW) CBC W/PLT COUNT & AUTO Routine 01/18/2019 DIFFERENTIAL 3:19 AM UNDERTAKER ASSISTANT CBC W/PLT COUNT & AUTO Routine 01/18/2019 DIFFERENTIAL 3:19 AM UNDERTAKER ASSISTANT BASIC METABOLIC PANEL (7) Routine 01/18/2019 3:19 AM UNDERTAKER ASSISTANT HEPATITIS B SURFACE Routine 01/18/2019 ANTIGEN 3:19 AM UNDERTAKER ASSISTANT PHOSPHORUS Routine 01/18/2019 3:19 AM UNDERTAKER ASSISTANT MAGNESIUM Routine 01/18/2019 3:19 AM UNDERTAKER ASSISTANT CALCIUM, IONIZED Routine 01/18/2019 3:19 AM UNDERTAKER ASSISTANT VANCOMYCIN LEVEL, RANDOM Routine 01/18/2019 3:19 AM UNDERTAKER ASSISTANT POCT-GLUCOSE METER Routine 01/17/2019 11:17 PM UNDERTAKER ASSISTANT POCT-GLUCOSE METER Routine 01/17/2019 8:21 PM UNDERTAKER ASSISTANT POCT-GLUCOSE METER Routine 01/17/2019 6:17 PM UNDERTAKER ASSISTANT POCT-GLUCOSE METER Routine 01/17/2019 10:10 AM UNDERTAKER ASSISTANT POCT-GLUCOSE METER Routine 01/17/2019 5:14 AM UNDERTAKER ASSISTANT CBC W/PLT COUNT & AUTO Routine 01/17/2019 DIFFERENTIAL 5:09 AM UNDERTAKER ASSISTANT PHOSPHORUS Routine 01/17/2019 5:09 AM UNDERTAKER ASSISTANT MAGNESIUM Routine 01/17/2019 5:09 AM UNDERTAKER ASSISTANT CBC W/PLT COUNT & AUTO Routine 01/17/2019 DIFFERENTIAL 5:09 AM UNDERTAKER ASSISTANT CALCIUM, IONIZED Routine 01/17/2019 5:09 AM UNDERTAKER ASSISTANT BASIC METABOLIC PANEL (7) Routine 01/17/2019 5:09 AM UNDERTAKER ASSISTANT ARTERIAL DOPPLER LEG, STAT 01/17/2019 LEFT 12:56 AM UNDERTAKER ASSISTANT BLOOD CULTURE STAT 01/17/2019 12:17 AM UNDERTAKER ASSISTANT BLOOD CULTURE STAT 01/17/2019 12:17 AM UNDERTAKER ASSISTANT CBC W/PLT COUNT & AUTO STAT 01/16/2019 DIFFERENTIAL 9:21 PM UNDERTAKER ASSISTANT C-REACTIVE PROTEIN STAT 01/16/2019 9:21 PM UNDERTAKER ASSISTANT MAGNESIUM STAT 01/16/2019 9:21 PM UNDERTAKER ASSISTANT PT/APTT STAT 01/16/2019 9:21 PM UNDERTAKER ASSISTANT COMPREHENSIVE METABOLIC STAT 01/16/2019 PANEL 9:21 PM UNDERTAKER ASSISTANT CBC W/PLT COUNT & AUTO STAT 01/16/2019 DIFFERENTIAL 9:21 PM UNDERTAKER ASSISTANT XR FOOT LEFT 3 VIEW STAT 01/16/2019 6:22 PM UNDERTAKER ASSISTANT after 10/11/2018 Results * EKG-SCANNED (10/10/2019 11:41 AM CDT) Only the most recent of 3 results within the time period is included. Narrative Performed At This result has an attachment that is n ot available. * TRANSFUSION SERVICE REPORT - SCAN (10/09/2019 6:00 PM CDT) Only the most recent of 26 results within the time period is included. Narrative Performed At This result has an attachment that is n ot available. * Prepare Leuko-Red RBC (10/08/2019 11:54 PM CDT) Only the most recent of 10 results within the time period is included. Unit ABO O Pos SAFETRACE TX UNIT NUMBER [id number] [place]ACE [place] Status TX_TIMEINCHART SAFETRACE [place] Blood Bank Product RED BLOOD CELLS SAFETRACE [place] PRODUCT CODE [id number] SAFETRACE [place] CROSSMATCH COMPATIBLE SAFETRACE [place] Specimen Other Performing Organization Address [facility] one Number [place]ACE [place] * POC-Glucose meter (10/07/2019 3:41 PM CDT) Only the most recent of 144 results within the time period is included. POC-Glucose Meter 174 (H)Comment: : TESTED AT 70 - 110 mg/dL [address] [address]: Accounts Payable Bookkeeper/Window Covering Sales Consultant ID = [id number] for LAURA [employer]ETS Specimen Blood Performing Organization Address [facility] one [address] [facility] * Troponin I (10/07/2019 3:37 PM CDT) Only the most recent of 9 results within the time period is included. Troponin I 0.07 (H) 0.00 - 0.03 ng/mL [facility] Specimen Blood Narrative Performed At Troponin I (TnI) levels must be interpreted in the co ntext of the presenting [facility] symptoms and the clinical findings. Elevated TnI leve ls indicate myocardial [facility] damage, but are not specific for ischem ic heart disease. Elevated TnI levels are seen in patients with other cardiac con ditions (including myocarditis and congestive heart failure), and slight T nI elevations occur in patients with other conditions, including sepsis, андрей al failure, acidosis, acute neurological disease, and persistent tachyarrhythmia . Accounts Payable Bookkeeper ID - ROSIANG Performing Organization Address City/State/Zipcode Ph one Number [place] [address] [facility] * HEMODIALYSIS INPATIENT (10/07/2019 1:45 PM CDT) Narrative Performed At Sarmad Arias RN 10/07/2019 2:08 PM Tolerated and completed 2 hours and 0mi nutes. No distress noted, asymptomatic. Denies any discomfort and pain. UF fluid removed 2 liters. Secured access with pressure dressing g auze and tape. No further bleeding nted. Report given to Linda BURROWS. Latest lab result: Lab Results Component Value Date WBC 4.3 10/07/2019 HGB 7.2 (L) 10/07/2019 HCT 21.2 (L) 10/07/2019 MCV 98.0 (H) 10/07/2019 PLT 139 (L) 10/07/2019 Lab Results Component Value Date GLUCOSE 124 (H) 10/07/2019 CALCIUM 9.3 10/07/2019 NA 138 10/07/2019 K 3.7 10/07/2019 CO2 33 (H) 10/07/2019 CL 97 (L) 10/07/2019 BUN 24 (H) 10/07/2019 CREATININE 6.20 (H) 10/07/2019 Sarmad GUERRERO, RN II 7S6- Adult Dialysis [phone] * Hemoglobin and hematocrit (10/07/2019 1:34 PM CDT) Only the most recent of 14 results within the time period is included. Hemoglobin 7.2 (L) 13.7 - 17.5 GM/DL [facility] Hematocrit 21.2 (L) 40.1 - 51.0 % [facility] Specimen Blood Narrative Performed At Accounts Payable Bookkeeper ID - [id number] [facility] Performing Organization Address [facility] Ph one Number [address] [phone] [address] * Transfuse Leuko-Red RBC (10/07/2019 12:31 PM CDT) Only the most recent of 24 results within the time period is included. * Phosphorus (10/07/2019 6:25 AM CDT) Only the most recent of 21 results within the time period is included. Phosphorus 3.2 2.3 - 4.7 mg/dL [facility] Specimen Blood Narrative Performed At Accounts Payable Bookkeeper ID - ELIZABETH W [facility] Performing Organization Address [facility] one Number [place] [address] [phone] [place] [address] * Magnesium (10/07/2019 6:25 AM CDT) Only the most recent of 20 results within the time period is included. Magnesium 2.1 1.6 - 2.6 mg/dL [facility] Specimen Blood Narrative Performed At Accounts Payable Bookkeeper ID - ELIZABETH W [facility] Performing Organization Address [facility] one Number [place] [address] [address] [phone] [address] * Basic Metabolic Panel (10/07/2019 6:25 AM CDT) Only the most recent of 38 results within the time period is included. Sodium 138 136 - 145 meq/L [facility] Potassium 3.7 3.5 - 5.1 meq/L [facility] Chloride 97 (L) 98 - 107 meq/L [facility] CO2 33 (H) 22 - 29 meq/L [facility] BUN 24 (H) 7 - 21 mg/dL [facility] Creatinine 6.20 (H) 0.57 - 1.25 mg/dL [facility] Glucose 124 (H) 70 - 105 mg/dL [facility] Calcium 9.3 8.4 - 10.2 mg/dL [facility] EGFR 9Comment: ESTIMATED GFR IS NOT mL/min/1.73 sq m [facility] ACCURATE CREATININE [facility] CLEARANCE IN PREDICTING GLOMERULAR FILTRATION RATE. ESTIMATED GFR IS NOT APPLICABLE FOR DIALYSIS PATIENTS. Specimen Blood Narrative Performed At Accounts Payable Bookkeeper ID - ELIZABETH Wiley [facility] Performing Organization Address City/State/Zipcode Ph one Number [place] [address] [facility] * CBC (Hemogram only) (10/07/2019 5:19 AM CDT) Only the most recent of 2 results within the time period is included. WBC 4.3 3.5 - 10.5 K/L [facility] RBC 1.96 (L) 4.63 - 6.08 M/L [facility] Hemoglobin 6.5 (L) 13.7 - 17.5 GM/DL [facility] Hematocrit 19.2 (L) 40.1 - 51.0 % [facility] MCV 98.0 (H) 79.0 - 92.2 fL [facility] MCH 33.2 (H) 25.7 - 32.2 pg [facility] MCHC 33.9 32.3 - 36.5 GM/DL [facility] RDW 17.5 (H) 11.6 - 14.4 % [facility] Platelets 139 (L) 150 - 450 K/CU MM [facility] MPV 9.8 9.4 - 12.4 fL [facility] nRBC 0 0 - 0 /100 WBC [facility] Specimen Blood Performing Organization Address City/State/Zipcode Ph one Number [facility] [address] [place], [place] [address] [facility]ENTER * SARS-CoV2/RT-PCR (Asymptomatic ONLY) (10/06/2019 11:37 PM CDT) Only the most recent of 2 results within the time period is included. SARS-COV2/RT-PCR Negative Not Detected, Negative, [facility] See external report for [facility] linked test SARS-COV-2 PERFORMING LAB [facility] Specimen Other Narrative Performed At Negative result for this test determine s that SARS-CoV-2 RNA was not present in [facility] the specimen above the Limit of Detecti on (LOD).However, Negative results do [facility] not preclude SARS-CoV-2 infection and s hould not be used as the sole basis for treatment or patient management decisio ns. Negative results must be combined with clinical observations, patient his tory, and epidemiological information. A false negative result may occur if a sp ecimen is improperly collected, transported or handled.A false nega tive result should be considered if patient's recent exposures or clinical presentation indicate that COVID-19 (SARS-CoV-2) is likely and diagnostic t ests for other causes of illness are negative.Re-testing should be consi dered in cases of suspected false negatives. The limit of detection for this assay i s 800 copies/mL. This SARS CoV-2 test is a real-time RT- PCR test intended for the qualitative detection of nucleic acid from SARS-CoV -2 in a nasopharyngeal swab specimen collected from individuals suspected of COVID-19 by their healthcare provider. This test has not been Food and Drug Ad ministration (FDA) cleared or approved.This is a modified version of an approved Emergency Use Authorization (EUA) and is in the proce ss of review by the FDA. Once authorized by the FDA, the issued EUA w ill be effective until the declaration that circumstances exist justifying the authorization of the emergency use of in vitro diagnostic tests for detection an d/or diagnosis of COVID-19 is terminated under Section 564(b)(2) of the Act or t he EUA is revoked under Section 564(g) of the Act. Fact Sheet for Healthcare Providers: https://www.[employer]/sites/default/files/product/documents/Fact_Sheet_HC_Provi tgoe_Fqsf_XJVT-IuK-5.pdf Fact Sheet for Healthcare Patients: https://www.[employer]/sites/default/files/product/documents/Fact_Sheet_Patients _Etxb_JYKR-KoL-5.pdf Performing Laboratory: [place] [address] Performing Organization Address [facility] one [place] [address] [facility] * Iron, TIBC, % sat. (without ferritin) (10/06/2019 11:37 PM CDT) Only the most recent of 3 results within the time period is included. Iron 58.0 40.0 - 160.0 ug/dL [facility] TIBC 150 (L) 250 - 450 ug/dL [facility] Iron % Saturation 39 20 - 55 % [facility] Specimen Blood Narrative Performed At Accounts Payable Bookkeeper ID - ANTHONY Reddy [facility] Performing Organization Address [facility] one [place] [address] [facility] * Ferritin (10/06/2019 11:37 PM CDT) Only the most recent of 3 results within the time period is included. Ferritin 2,196.05 (H) 5.00 - 275.00 ng/mL [facility] Specimen Blood Narrative Performed At Accounts Payable Bookkeeper ID - ANTHONY Reddy [facility] Performing Organization Address [facility]/Zipcode Ph one Number [facility] [address] [place], [place] [address] [facility] * XR chest 1 view portable / bedside (10/06/2019 7:37 PM CDT) Only the most recent of 3 results within the time period is included. Specimen Narrative Performed At FINAL REPORT Volly RIS Chest, 1 view. History: Abnormal lab, anemia. Comparison: Plain radiograph the chest dated 02/20/2019.. Findings: The cardiomediastinal silhouette and pu lmonary vasculature are within normal limits for a portable exam. The lungs are clear without evidence of consolidation or effusion. The soft tissues and osseous structures are intact. IMPRESSION: No acute cardiopulmonary abnormality. Signed: Naty Wan MD Report Verified Date/Time: 0 20:24:08 Procedure Note Interface, External Ris In - 10/06/2019 8:26 PM CDT FINAL REPORT Chest, 1 view. History: Abnormal lab, anemia. Comparison: Plain radiograph the chest dated 02/20/2019.. Findings: The cardiomediastinal silhouette and pulmonary vasculature are within normal limits for a portable exam. The lungs are clear without evidence of consolidation or effusion. The soft tissues and osseous structures are intact. IMPRESSION: No acute cardiopulmonary abnormality. Signed: Naty Wan MD Report Verified Date/Time: 10/06/2019 20:24:08 Performing Organization Address City[facility]State[facility] Ph one Number GE RIS * ECG 12 lead (10/06/2019 7:34 PM CDT) Only the most recent of 3 results within the time period is included. Specimen Narrative Performed At Ventricular Rate 80 BPM GE MUSE Atrial Rate 80 BPM P-R Interval 228 ms QRS Duration 98 ms Q-T Interval 386 ms QTC Calculation(Bazett) 445 ms P [place] 48 degrees R [place] -26 degrees T [place] 53 degrees Sinus rhythm with 1st degree A-V block Poor R wave [id number] Jan 2019 When compared with ECG of 07-APR-2019 0 6:54, No significant change was found Confirmed by MD STANLEY YOCHAI ([id number] ) on 10/09/2019 6:35:43 AM Procedure Note Interface, External Ris In - 10/09/2019 6:35 AM CDT Ventricular Rate 80 BPM Atrial Rate 80 BPM P-R Interval 228 ms QRS Duration 98 ms Q-T Interval 386 ms QTC Calculation(Bazett) 445 ms P [place] 48 degrees R [place] -26 degrees T [place] 53 degrees Sinus rhythm with 1st degree A-V block Poor R wave progression 02 Feb 2019 When compared with ECG of 07-APR-2019 06:54, No significant change was found Confirmed by MD LIZETH, SRIDEVI ([id number]) on 10/09/2019 6:35:43 AM Performing Organization Address [facility] Ph one Number GE MUSE * Type and screen, automated ([facility] and [facility] only) (10/06/2019 7:22 PM CDT) Only the most recent of 9 results within the time period is included. ABO/RH AUTOMATED (BEAKER) O POSITIVE [facility] Ab Scrn NEGATIVE [facility] Specimen Blood Performing Organization Address [facility] Ph one Number [address] [address] [phone] [facility] * CBC with platelet count + automated diff (10/06/2019 7:22 PM CDT) Only the most recent of 32 results within the time period is included. WBC 4.9 3.5 - 10.5 K/L [facility] RBC 1.60 (L) 4.63 - 6.08 M/L [facility] Hemoglobin 5.4 (LL) 13.7 - 17.5 GM/DL [facility] Hematocrit 16.3 (L) 40.1 - 51.0 % [facility] MCV 101.9 (H) 79.0 - 92.2 fL [facility] MCH 33.8 (H) 25.7 - 32.2 pg [facility] MCHC 33.1 32.3 - 36.5 GM/DL [facility] RDW 16.3 (H) 11.6 - 14.4 % [facility] Platelets 143 (L) 150 - 450 K/CU MM [facility] MPV 10.2 9.4 - 12.4 fL [facility] nRBC 0 0 - 0 /100 WBC [facility] % Neutros 85 % [facility] % Lymphs 10 % [facility] % Monos 4 % [facility] % Eos 1 % [facility] % Baso 0 % [facility] # Neutros 4.18 1.78 - 5.38 K/L [facility] # Lymphs 0.47 (L) 1.32 - 3.57 K/L [facility] # Monos 0.19 (L) 0.30 - 0.82 K/L [facility] # Eos 0.07 0.04 - 0.54 K/L [facility] # Baso 0.01 0.01 - 0.08 K/L [facility] Immature 0 0 - 1 % [facility] Granulocytes-Relative [facility] Specimen Blood Performing Organization Address City/State/Zipcode Ph one Number [place] [phone] [place], [place] [address] MED[facility]ENTER * ECG/EKG Interpretation (10/06/2019 7:07 PM CDT) Only the most recent of 3 results within the time period is included. Narrative Performed At Cricket Maradiaga MD 10/06/2019 7:40 PM ECG/EKG Interpretation Date/Time: 10/06/2019 7:34 PM Performed by: Cricket Maradiaga MD Authorized by: Cricket Maradiaga MD The ECG was interpreted by ED physician . The ECG is interpreted as sinus rhythm. Rate is normal rate. Heart rate is [address] segments normal. T waves normal. Axi s is left. ECG reviewed and does not meet STEMI cr iteria. * Prepare RBC (08/14/2019 7:34 PM CDT) Only the most recent of 6 results within the time period is included. Unit ABO O Pos SAFETRACE TX UNIT NUMBER [id number] SAFETRACE TX Status TX_TIMEINCHART SAFETRACE TX Blood Bank Product RED BLOOD CELLS SAFETRACE TX PRODUCT CODE [id number] SAFETRACE TX Unit ABO O Pos SAFETRACE TX UNIT NUMBER [id number] SAFETRACE TX Status WORK IN PROGRESS SAFETRACE TX Blood Bank Product RED BLOOD CELLS SAFETRACE TX PRODUCT CODE [id number] SAFETRACE TX CROSSMATCH COMPATIBLE SAFETRACE TX CROSSMATCH COMPATIBLE SAFETRACE TX Performing Organization Address City/State/[facility] Ph one Number [place] * HEMODIALYSIS INPATIENT (08/11/2019 11:37 PM CDT) Narrative Performed At Arlene Hays RN 08/11/2019 11:37 PM Patient is awake, alert and oriented X 4. Here to be dialyzed for 3.5 hours with UF goal of 2L. [facility] most updated labs are as follows: Lab Results Component Value Date HEPBSAG Nonreactive 2019 Lab Results Component Value Date GLUCOSE 109 (H) 08/11/2019 CALCIUM 9.4 08/11/2019 NA 134 (L) 08/11/2019 K 4.3 08/11/2019 CO2 29 08/11/2019 CL 97 (L) 08/11/2019 BUN 67 (H) 08/11/2019 CREATININE 8.87 (H) 08/11/2019 Lab Results Component Value Date WBC 3.5 08/11/2019 HGB 6.8 (L) 08/11/2019 HCT 20.4 (L) 08/11/2019 MCV 96.5 (H) 08/11/2019 PLT 91 (L) 08/11/2019 Patient dialyzed for 3.5 hours with Net UF = 2 L using the Left arm AV fistula access. One unit PRBC gi humza. Vital signs stable and well within the set parameters. Rep ort given to Jessica BURROWS. Patient was able to tolerate the treatm ent well. Arlene Hays, MARKOS * XR foot 3 views left (08/10/2019 3:41 PM CDT) Only the most recent of 6 results within the time period is included. Specimen Narrative Performed At FINAL REPORT GE RIS CLINICAL HISTORY: Postop COMPARISON: 07/20/2019 FINDINGS: 5 images of the left foot are submitted . Multiple surgical cliff overlie the h eel, suggestive of debridement. Atherosclerotic calcifications are note d in the ankle and foot and there is a partially visualized stent a t the posterior ankle and overlying the calcaneus. 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 No acute fracture is identified. There is no unexpected radiopaque forei gn body. Signed: Ar Saldana MD Report Verified Date/Time: 0 21:05:47 Procedure Note Interface, External Ris In - 08/10/2019 9:08 PM CDT FINAL REPORT CLINICAL HISTORY: Postop COMPARISON: 07/20/2019 FINDINGS: 5 images of the left foot are submitted. Multiple surgical cliff overlie the heel, suggestive of debridement. Atherosclerotic calcifications are noted in the ankle and foot and there is a partially visualized stent at the posterior ankle and overlying the calcaneus. 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 No acute fracture is identified. There is no unexpected radiopaque foreign body. Signed: Ar Saldana MD Report Verified Date/Time: 08/10/2019 21:05:47 Performing Organization Address City/State/Zipcode Ph one Number GE RIS * Vitamin B12 and Folate (08/10/2019 5:33 AM CDT) Vitamin B12 484 213 - 816 pg/mL [facility] Folate 11.60 >=7.00 ng/mL [facility] Specimen Blood Narrative Performed At Accounts Payable Bookkeeper ID - REYNALDO Rodriguez [facility] Performing Organization Address [facility] Ph one Number [address] 7[address] [facility] * Hepatitis B surface antigen (2019 4:14 PM CDT) Only the most recent of 4 results within the time period is included. HBsAg Screen Nonreactive Nonreactive [facility] Specimen Blood Narrative Performed At Specimen is considered negative for HBsAg. [facility] Performing Organization Address [facility] Ph one Number [place] [address] [facility] * Hemoglobin A1c (2019 4:57 AM CDT) Hemoglobin A1C 4.8 4.3 - 6.1 % [facility] Specimen Blood Performing Organization Address [facility] Ph one Number [place] [address] [phone] [place] [address] * Hepatic function panel (2019 4:57 AM CDT) Protein, Total 6.3 6.0 - 8.3 gm/dL [facility] Albumin 3.8 3.5 - 5.0 g/dL [facility] Total Bilirubin 0.9 0.2 - 1.2 mg/dL [facility] Bilirubin, Direct 0.4 0.1 - 0.5 mg/dL [facility] Alkaline Phosphatase 66 40 - 150 U/L [facility] AST 14 5 - 34 U/L [facility] ALT 6 6 - 55 U/L [facility] Specimen Blood Narrative Performed At Accounts Payable Bookkeeper ID - ANTHONY M [facility] Performing Organization Address [facility] Ph one Number [address] 0 [phone] [place] [address] * Lipid panel (08/08/2019 8:22 AM CDT) Triglycerides 54 mg/dL [facility] Cholesterol 132 mg/dL [facility] HDL 52 mg/dL [facility] LDL Calculated 69 mg/dL [facility] Specimen Blood Narrative Performed At Triglyceride Reference Range: [facility] Low Risk <150 [facility] [id number] High Risk 200-499 Very High Risk>=500 Cholesterol Reference Range: Low Risk <200 [id number] High Risk>240 HDL Cholesterol Reference Range: Low Risk >=60 High Risk <40 LDL Cholesterol Reference Range: Optimal<100 Near Kvovytz802-415 Ukinwezhve384-823 Mcyb320-679 Very High >=190 Accounts Payable Bookkeeper ID - BS Performing Organization Address [facility] Ph one Number [address] 7[address] 0 [phone] [place] [address] * Hemoglobin (08/03/2019 9:55 AM CDT) Hemoglobin 9.0 (L) 13.7 - 17.5 GM/DL [facility] Specimen Blood Narrative Performed At Accounts Payable Bookkeeper ID - [id number] [facility] Performing Organization Address City/[facility] Ph one Number [address] 770 0 [phone] [place] [address] * Potassium (08/03/2019 9:55 AM CDT) Potassium 4.3 3.5 - 5.1 meq/L [facility] Specimen Blood Narrative Performed At Accounts Payable Bookkeeper ID - AAHAMID [facility] Performing Organization Address City/[facility] Ph one Number [address] [facility] * RHYTHM STRIP - SCAN (04/11/2019 3:50 PM UNDERTAKER ASSISTANT) Only the most recent of 6 results within the time period is included. Narrative Performed At This result has an attachment that is n ot available. * CARDIAC CATH REPORT - SCAN (04/10/2019 1:42 PM UNDERTAKER ASSISTANT) Narrative Performed At This result has an attachment that is n ot available. * POC ACTIVATED CLOTTING TIME (04/07/2019 11:06 AM UNDERTAKER ASSISTANT) Only the most recent of 6 results within the time period is included. Activated Clotting Time 257Comment: Reference Range: sec [facility] 74-137 seconds, [facility] Baseline/TESTED AT [address] [address] Specimen Blood Performing Organization Address [facility] one Number [address] 7[address] [facility] * Vein Mapping Legs Bilateral (03/11/2019 10:25 AM UNDERTAKER ASSISTANT) Ejection Fraction [facility] ECHO HEARTLAB MKCKESSON CPACS Specimen Impressions Performed At Right Impression [facility] ECHO HEARTLAB 1. There is no deep venous venous obstruction in the common femoral, MKCKESSON CPACS profunda femoral, femoral, popliteal, p osterior tibial or peroneal veins. 2. There is no superficial venous obstr uction in the great saphenous vein. Left Impression 1. There is no deep venous obstruction in the common femoral, profunda femoral, femoral, popliteal, posterior tibial or peroneal veins. 2. There is no superficial venous obstr uction in the great saphenous vein. Conclusions Summary Venous duplex imaging and compression o f the bilateral lower extremities was performed. The veins were adequatel y visualized. The bilateral venous systems were patent and compressible wi th no evidence of thrombus. Superficial venous measurements are doc umented below. Signature Velocities are measured in cm/s ; Diame ters are measured in cm LE Vein Mapping Superficial - Great Saphenous Vein Right Left + + + +----- + + +----- + !Location ! !Diameter!Depth ! !Diameter!Depth ! + + + +----- + + +----- + !Sapheno Femoral Junction ! !0.89! ! !0.86! ! + + + +----- + + +----- + !GSV High Thigh ! !0.57! ! !0.63! ! + + + +----- + + +----- + !GSV Mid Thigh ! !0.51! ! !0.54! ! + + + +----- + + +----- + !GSV Low Thigh ! !0.59! ! !0.83! ! + + + +----- + + +----- + !GSV Knee ! !0.47! ! !0.79! ! + + + +----- + + +----- + !GSV High Calf ! !0.66! ! !0.68! ! + + + +----- + + +----- + !GSV Mid Calf ! !0.55! ! !0.65! ! + + + +----- + + +----- + !GSV Low Calf ! !0.51! ! !0.6 ! ! + + + +----- + + +----- + Superficial - Lesser Saphenous VeinRight Left + + + +----- + + +----- + !Location ! !Diameter!Depth ! !Diameter!Depth ! + + + +----- + + +----- + !SSV High Calf ! !0.28! ! !0.81! ! + + + +----- + + +----- + !SSV Mid Calf ! !35! ! !0.63! ! + + + +----- + + +----- + Narrative Performed At PV LAB - Lower Extremities Vein Mapping SLE [facility] ART[facility] Demographics [facility] Patient Name YASSINE CARLSON Date of Study 03/11/2019 DAVEY BRYSON JR. [id number] Age 58 Visit Number [id number] GenderMale Accession Number [id number] Date of 1960 [facility] [place] Number [id number] Physician SonographShayna Christianson, Physician Procedure Type of Study: Veins: Lower Extremity Vein Mapping, VE IN MAPPING, LOWER EXTREMITY, BILATERAL. Indications for Study:Pre-op for vein h arvesting. Patient Status:Routine. Study Location:Vascular Lab. Technical Quality:Good visualization. Risk Factors History of Disease + + +------ + !Diagnosis !Date!Comments ! + + +------ + !History/Risk! !HTN, HLD, ESRD, Left Arm AV Fistula, PVD, ! !Factors:!!DM ! + + +------ + !History/Risk!03/09/2019!PAD ! !Factors:!! ! + + +------ + Procedure Note Interface, External Ris In - 03/11/2019 3:10 PM UNDERTAKER ASSISTANT PV LAB - Lower Extremities Vein Mapping Demographics Patient Name YASSINE CARLSON Date of Study 03/11/2019 ALICE ABDUL Age 58 Visit Number [id number] Gender Male Accession Number [id number] Date of 1960 Referring Serg De Los Santos MD Room Number 5616 Physician Dot Etcher Edu Alas Interpreting Nicole Christianson Physician Procedure Type of Study: Veins: Lower Extremity Vein Mapping, VEIN MAPPING, LOWER EXTREMITY, BILATERAL. Indications for Study:Pre-op for vein harvesting. Patient Status:Routine. Study Location:Vascular Lab. Technical Quality:Good visualization. Risk Factors History of Disease + + +------- + !Diagnosis !Date !Comments ! + + +------- + !History/Risk ! !HTN, HLD, ESRD, Left Arm AV Fistula, PVD, ! !Factors: ! !DM ! + + +------- + !History/Risk !03/09/2019!PAD ! !Factors: ! ! ! + + +------- + Impressions Right Impression 1. There is no deep venous venous obstru ction in the common femoral, profunda femoral, femoral, popliteal, posterior tibial or peroneal veins. 2. There is no superficial venous obstru ction in the great saphenous vein. Left Impression 1. There is no deep venous obstruction i n the common femoral, profunda femoral, femoral, popliteal, posterior tibial or peroneal veins. 2. There is no superficial venous obstru ction in the great saphenous vein. Conclusions Summary Venous duplex imaging and compression of the bilateral lower extremities was performed. The veins were adequately visualized. The bilateral venous systems were patent and compressible with no evidence of thrombus. Superficial venous measurements are documented below. Signature Velocities are measured in cm/s ; Diameters are measured in cm LE Vein Mapping Superficial - Great Saphenous Vein Right Left + + + + + + + + !Location ! !Diameter !Depth ! !Diameter !Depth ! + + + + + + + + !Sapheno Femoral Junction ! !0.89 ! ! !0.86 ! ! + + + + + + + + !GSV High Thigh ! !0.57 ! ! !0.63 ! ! + + + + + + + + !GSV Mid Thigh ! !0.51 ! ! !0.54 ! ! + + + + + + + + !GSV Low Thigh ! !0.59 ! ! !0.83 ! ! + + + + + + + + !GSV Knee ! !0.47 ! ! !0.79 ! ! + + + + + + + + !GSV High Calf ! !0.66 ! ! !0.68 ! ! + + + + + + + + !GSV Mid Calf ! !0.55 ! ! !0.65 ! ! + + + + + + + + !GSV Low Calf ! !0.51 ! ! !0.6 ! ! + + + + + + + + Superficial - Lesser Saphenous Vein Right Left + + + + + + + + !Location ! !Diameter !Depth ! !Diameter !Depth ! + + + + + + + + !SSV High Calf ! !0.28 ! ! !0.81 ! ! + + + + + + + + !SSV Mid Calf ! !35 ! ! !0.63 ! ! + + + + + + + + Performing Organization Address City/[facility] Ph one Number [facility] [employer] HEARTLAB HoodsCKESSON CPACS * Blood Culture - Routine (Left Venipuncture) (03/10/2019 8:33 AM UNDERTAKER ASSISTANT) Only the most recent of 5 results within the time period is included. Result No growth in 5 days [facility] Specimen Blood Performing Organization Address City/State/Zipcode Ph one Number [facility] [address] [place] [address] MEDICAL CENTER * Arterial doppler legs bilateral (03/09/2019 6:51 PM UNDERTAKER ASSISTANT) Ejection Fraction [facility] ECHO HEARTLAB MKCKESSON CPACS Specimen Impressions Performed At Right Impression SLE ECHO HEARTLAB 1. The common femoral, profunda femoral, superficial femoral and popliteal MKCKESSON CPACS arteries are patent with triphasic Dopp ler waveforms and scattered calcification. 2. The proximal posterior tibial artery is not seen. There is > 50% stenosis in the distal posterior tibial artery ( 87cm/sec). 3. The peroneal and anterior tibial art eries are patent with biphasic Doppler waveforms and diffuse calcifica tion. 4. The PT pressure is 111 mmHg with an EUGENE of 0.83 (mild obstruction range)and the DP pressure is >255 mmHg (non compressible) range. 5. The great toe pressure is 45 mmHg wi th abnormal TBI of 0 .34. 6. There is adequate flow to the 1st, 3 rd and 4th digits; decreased flow to the 2nd and 5th digits via PPG. Left Impression 1. The common femoral , profunda femora l, superficial femoral, popliteal and posterior tibial arteries are patent wi th biphasic Doppler waveforms and scattered calcification. 2. The prox-mid peroneal artery is not seen. The distal portion is patent with biphasic Doppler waveforms. 3. The anterior tibial artery is patent with biphasic/monophasic Doppler waveforms and calcified vessels. 4. The PT and DP pressures are >255 mmH g (non compressible) range. 5. The great toe pressure and TBI were not obtained due to amputation. 6. There is absent flow to the 2nd digi t; severely decreased flow to the 3rd and 4th digits. There is decreased flow to the 5th digit via PPG. Conclusions Summary Arterial pressures and Doppler analysis were performed bilaterally. Adequate Doppler signals were obtained. On the right, the common femoral, profunda femoral, superficial femoral a nd popliteal arteries were patent with triphasic Doppler waveforms and sc attered calcification. There was> 50% stenosis in the distal posterior ti bial artery. The peroneal and anterior tibial arteries were patent wi th biphasic Doppler waveforms and diffuse calcification. The PT EUGENE was w ithin the mild obstruction range. The DP EUGENE could not be obtained due to non compressible artery. The great toe pressure and TBI were abnormal. The re was adequate flow to the 1st, 3rd and 4th digits; decreased flow to t he 2nd and 5th digits via PPG. On the left, the common femoral , profunda femoral, superficial femoral, popliteal and posterior tibial arteries were patent with biphasic Doppler waveforms and scattered calcification. The prox-mid peroneal artery was not seen. The distal portion was patent with biphasic Doppler waveforms. The anterior tibial artery was patent w ith biphasic/monophasic Doppler waveforms and calcified vessels. The PT and DP EUGENE's were in non compressible range. The great toe press ure and TBI were not obtained due to amputation. There was absent flow to the 2nd digit; severely decreased flow to the 3rd and 4th digits. There w as decreased flow to the 5th digit via PPG. Signature Velocities are measured in cm/s ; Diame ters are measured in cm LE Duplex Measurements Right Left + + + + + + + + +- + !Location ! !PSV !EDV !Wavef orm! !PSV !EDV!Wavefo rm ! + + + + + + + + +- + !Mid Common Femoral ! !172 !18.3!Triph asic ! !232 ! !Biphasic ! + + + + + + + + +- + !Prox PFA ! !135 !20.7!Triph asic ! !123 ! !Biphasic ! + + + + + + + + +- + !Prox SFA ! !154 !18.3!Triph asic ! !159 ! !Biphasic ! + + + + + + + + +- + !Mid SFA ! !145 !19.5!Triph asic ! !155 ! !Biphasic ! + + + + + + + + +- + !Dist SFA ! !91!12.1!Triphasic ! !145 ! !Biph asic ! + + + + + + + + +- + !Prox Popliteal ! !79.2!!Triphasic ! !107 ! !Biph asic ! + + + + + + + + +- + !Dist Popliteal ! !90.9!13.3!Triphasic ! !201 ! !Biph asic ! + + + + + + + + +- + !Prox DRIFTMAN ! !87!!Monopha sic! !102 ! !Biph asic ! + + + + + + + + +- + !Mid DRIFTMAN ! !143 !!B iphasic! !113 ! !Biphasic ! + + + + + + + + +- + !Dist DRIFTMAN ! !95.6!!Biphasic ! !! !Absent ! + + + + + + + + +- + !Prox ERASMO ! !33.3!!Biphasic ! !156 ! !Biph asic ! + + + + + + + + +- + !Mid ERASMO ! !68.8!!Biphasic ! !137 ! !Biph asic ! + + + + + + + + +- + !Dist ERASMO ! !64.4!!Biphasic ! !98.8! !Monophasic ! + + + + + + + + +- + !Prox Peroneal ! !91.9!!Biphasic ! !110 ! !Biph asic ! + + + + + + + + +- + !Mid Peroneal ! + + !Dist Peroneal ! + + Narrative Performed At LAB - Lower Extremity Arterial Duplex [facility] ECHO H EARTLAB Demographics [facility] Patient Name YASSINE CARLSON Date of Study 03/09/2019 DAVEY BRYSON JR. [id number] Age 58 Visit Number [id number] GenderMale Accession Number [id number] Date of 1960 [facility] [place] Number [id number] Physician Neeraj ShahterMurtaza Membreno RVTPhysician MD Procedure Type of Study: Extremities Arteries: Lower Extremities Arterial Duplex, ARTERIAL DOPPLER LEGS, BILATERAL. Indications for Study:PAD. Patient Status:Routine. Study Location:Portable. Technical Quality:Adequate visualizatio n. Risk Factors History of Disease + + +------ + !Diagnosis !Date!Comments ! + + +------ + !History/Risk! !HTN, HLD, ESRD, Left Arm AV Fistula, PVD, ! !Factors:!!DM ! + + +------ + !History/Risk!03/09/2019!PAD ! !Factors:!! ! + + +------ + Procedure Note Interface, External Ris In - 03/10/2019 8:39 AM UNDERTAKER ASSISTANT PV LAB - Lower Extremity Arterial Duplex Demographics Patient Name YASSINE CARLSON Date of Study 03/09/2019 ALICE ABDUL Age 58 Visit Number [id number] Gender Male Accession Number [id number] Date of 1960 Referring Serg De Los Santos MD Room Number 7191 Physician Dot Etcher Zuleyma Staley RVT Interpreting Hailee Parisi RVT Physician Procedure Type of Study: Extremities Arteries: Lower Extremities Arterial Duplex, ARTERIAL DOPPLER LEGS, BILATERAL. Indications for Study:PAD. Patient Status:Routine. Study Location:Portable. Technical Quality:Adequate visualization. Risk Factors History of Disease + + +------- + !Diagnosis !Date !Comments ! + + +------- + !History/Risk ! !HTN, HLD, ESRD, Left Arm AV Fistula, PVD, ! !Factors: ! !DM ! + + +------- + !History/Risk !03/09/2019!PAD ! !Factors: ! ! ! + + +------- + Impressions Right Impression 1. The common femoral, profunda femoral, superficial femoral and popliteal arteries are patent with triphasic Doppler waveforms and scattered calcification. 2. The proximal posterior tibial artery is not seen. There is > 50% stenosis in the distal posterior tibial artery (87cm/sec). 3. The peroneal and anterior tibial fredrick марина are patent with biphasic Doppler waveforms and diffuse calcification. 4. The PT pressure is 111 mmHg with an A BI of 0.83 (mild obstruction range)and the DP pressure is >255 mmHg (non compressible) range. 5. The great toe pressure is 45 mmHg wit h abnormal TBI of 0 .34. 6. There is adequate flow to the 1st, 3r d and 4th digits; decreased flow to the 2nd and 5th digits via PPG. Left Impression 1. The common femoral , profunda femoral , superficial femoral, popliteal and posterior tibial arteries are patent with biphasic Doppler waveforms and scattered calcification. 2. The prox-mid peroneal artery is not s een. The distal portion is patent with biphasic Doppler waveforms. 3. The anterior tibial artery is patent with biphasic/monophasic Doppler waveforms and calcified vessels. 4. The PT and DP pressures are >255 mmHg (non compressible) range. 5. The great toe pressure and TBI were n ot obtained due to amputation. 6. There is absent flow to the 2nd digit ; severely decreased flow to the 3rd and 4th digits. There is decreased flow to the 5th digit via PPG. Conclusions Summary Arterial pressures and Doppler analysis were performed bilaterally. Adequate Doppler signals were obtained. On the right, the common femoral, profunda femoral, superficial femoral and popliteal arteries were patent with triphasic Doppler waveforms and scattered calcification. There was> 50% stenosis in the distal posterior tibial artery. The peroneal and anterior tibial arteries were patent with biphasic Doppler waveforms and diffuse calcification. The PT EUGENE was within the mild obstruction range. The DP EUGENE could not be obtained due to non compressible artery. The great toe pressure and TBI were abnormal. There was adequate flow to the 1st, 3rd and 4th digits; decreased flow to the 2nd and 5th digits via PPG. On the left, the common femoral , profunda femoral, superficial femoral, popliteal and posterior tibial arteries were patent with biphasic Doppler waveforms and scattered calcification. The prox-mid peroneal artery was not seen. The distal portion was patent with biphasic Doppler waveforms. The anterior tibial artery was patent with biphasic/monophasic Doppler waveforms and calcified vessels. The PT and DP EUGENE's were in non compressible range. The great toe pressure and TBI were not obtained due to amputation. There was absent flow to the 2nd digit; severely decreased flow to the 3rd and 4th digits. There was decreased flow to the 5th digit via PPG. Signature Velocities are measured in cm/s ; Diameters are measured in cm LE Duplex Measurements Right Left + + + + + + + + + + !Location ! !PSV !EDV !Waveform ! !PSV !EDV !Waveform ! + + + + + + + + + + !Mid Common Femoral ! !172 !18.3 !Triphasic ! !232 ! !Biphasic ! + + + + + + + + + + !Prox PFA ! !135 !20.7 !Triphasic ! !123 ! !Biphasic ! + + + + + + + + + + !Prox SFA ! !154 !18.3 !Triphasic ! !159 ! !Biphasic ! + + + + + + + + + + !Mid SFA ! !145 !19.5 !Triphasic ! !155 ! !Biphasic ! + + + + + + + + + + !Dist SFA ! !91 !12.1 !Triphasic ! !145 ! !Biphasic ! + + + + + + + + + + !Prox Popliteal ! !79.2 ! !Triphasic ! !107 ! !Biphasic ! + + + + + + + + + + !Dist Popliteal ! !90.9 !13.3 !Triphasic ! !201 ! !Biphasic ! + + + + + + + + + + !Prox DRIFTMAN ! !87 ! !Monophasic ! !102 ! !Biphasic ! + + + + + + + + + + !Mid DRIFTMAN ! !143 ! !Biphasic ! !113 ! !Biphasic ! + + + + + + + + + + !Dist DRIFTMAN ! !95.6 ! !Biphasic ! ! ! !Absent ! + + + + + + + + + + !Prox ERASMO ! !33.3 ! !Biphasic ! !156 ! !Biphasic ! + + + + + + + + + + !Mid ERASMO ! !68.8 ! !Biphasic ! !137 ! !Biphasic ! + + + + + + + + + + !Dist ERASMO ! !64.4 ! !Biphasic ! !98.8 ! !Monophasic ! + + + + + + + + + + !Prox Peroneal ! !91.9 ! !Biphasic ! !110 ! !Biphasic ! + + + + + + + + + + !Mid Peroneal ! + + !Dist Peroneal ! + + Performing Organization Address [facility] Ph one Number SLE ECHO HEARTLAB MKCKESSON CPACS * Prothrombin time/INR (03/09/2019 2:56 PM UNDERTAKER ASSISTANT) Only the most recent of 2 results within the time period is included. Protime 16.0 (H) 11.9 - 14.2 seconds [facility] INR 1.3 <=5.9 [facility] Specimen Blood Narrative Performed At Effective 07/27/2018: PT Reference Range Change [facility] New: 11.9-14.2Previous: 11.7-14.7 [facility] RECOMMENDED COUMADIN/WARFARIN INR THERA PY RANGES STANDARD DOSE: 2.0-3.0Includes: PRO PHYLAXIS for venous thrombosis, systemic embolization; TREATMENT for venous thro mbosis and/or pulmonary embolus. HIGH RISK: Target INR is 2.5-3.5 for pa tients wiht mechanical heart valves. Performing Organization Address [facility] Ph one Number [place] [address] MEDICAL CENTER * PT/aPTT (03/07/2019 10:27 PM UNDERTAKER ASSISTANT) Only the most recent of 3 results within the time period is included. Protime 15.2 (H) 11.9 - 14.2 seconds [facility] INR 1.2 <=5.9 [facility] PTT 43.2 (H) 22.5 - 36.0 seconds [facility] Specimen Blood Narrative Performed At Effective 07/27/2018: PT Reference Range Change [facility] New: 11.9-14.2Previous: 11.7-14.7 [facility] RECOMMENDED COUMADIN/WARFARIN INR THERA PY RANGES STANDARD DOSE: 2.0-3.0Includes: PRO PHYLAXIS for venous thrombosis, systemic embolization; TREATMENT for venous thro mbosis and/or pulmonary embolus. HIGH RISK: Target INR is 2.5-3.5 for pa tients wiht mechanical heart valves. Performing Organization Address City/State/Zipcode Ph one Number [facility] [address] [place], [place] [address] [facility] * Tissue Exam (02/23/2019 8:18 AM UNDERTAKER ASSISTANT) Only the most recent of 3 results within the time period is included. Case Report Surgical Pathology [place] Report LABORATORY Case: [id number] Authorizing Provider:Arron Carreno MD Collected: [id number] Ordering Location: [address] Med/SurgRe ceived: 02/23/2019 0957 Pathologist: Sana Muhammad MD Specimens: A) - Esophagus, lower polyp biopsy B) - Esophagus, Willis's biopsy DIAGNOSIS A. ESOPHAGUS, LOWER POLYP, [place] BIOPSY: LABORATORY - FRAGMENTS OF COLUMNAR MUCOSA WITH EXTENSIVE ULCERATION AND AT LEAST HIGH-GRADE DYSPLASIA (SEE COMMENT) B. ESOPHAGUS, BIOPSY: - SQUAMOCOLUMNAR MUCOSA WITH INTESTINAL METAPLASIA - NO DYSPLASIA OR MALIGNANCY SEEN Signing Pathologist Direct Phone Line: [phone] COMMENT The biopsy consists of [place] multiple fragments of LABORATORY villoglandular mucosa with extensive ulceration, cribriforming of glands and high-grade nuclei. Due to the fragmentation of the biopsy the possiblitity of an underlying carcinoma cannot be entirely excluded. CPT Code(s) 89413 x2 [facility] CLINICAL HISTORY Bleeding [place] [employer] LABORATORY SPECIMEN SOURCE A. Lower polyp, biopsy, [place] esophagus; B. Willis's LABORATORY biopsy, esophagus GROSS DESCRIPTION Specimen A is received in [place] fixative and designated as LABORATORY "esophagus" and consists of multiple pink-baltazar tissue fragments ranging in size from 0.1 to 0.3 cm in greatest dimension. All tissue fragments are submitted into A1. Specimen B is received in fixative and designated as "esophagus" and consists of three pink-baltazar tissue fragments ranging in size from 0.1 to 0.5 cm in greatest dimension. All tissue fragments are submitted into B1. MG/pl MICROSCOPIC DESCRIPTION A-B: Performed [facility] Gross assessment was [facility] performed at [facility], Department of LABORATORY Pathology, [address] [place] [address], Technical component was [facility] [place][note 2] performed at [place] Department of LABORATORY Pathology, [address] [place] [address], Professional component [facility] was performed at [facility], Department of LABORATORY Pathology, [address] [place] [address], Specimen Tissue Tissue - Esophageal structure (body structure) Narrative Performed At This result has an attachment that is n ot available. Performing Organization Address City/State/[facility] Ph one Number [facility] [address] [place] [address] * Hepatitis B surface antibody (02/22/2019 9:56 AM UNDERTAKER ASSISTANT) Hep B S Ab 31.5 (H) <8.0 mIU/mL [facility] Specimen Blood Performing Organization Address City/State/Zipcode Ph one [address] 7703 [facility] * transcutaneous pacing (02/20/2019 3:25 AM UNDERTAKER ASSISTANT) Narrative Performed At Ludwig Prince MD 02/20/2019 8:30 AM Transcutaneous pacing Performed by: Ludwig Prince MD Authorized by: Jose Stevenson MD Consent: Verbal consent obtained. Risks and benefits: risks, benefits and alternatives were discussed Consent given by: patient Patient understanding: patient states u nderstanding of the procedure being performed Patient consent: the patient's understa nding of the procedure matches consent given Procedure consent: procedure consent juan manuel tcantonella procedure scheduled Relevant documents: relevant documents present and verified Test results: test results available an d properly labeled Site marked: the operative site was melodie lawrence Imaging studies: imaging studies availa ble Required items: required blood products , implants, devices, and special equipment available Patient identity confirmed: arm band Sedation: Patient sedated: yes Cardioversion basis: emergent Pre-procedure rhythm: junctional rhythm Patient position: patient was placed in a supine position Chest area: chest area exposed Electrodes: pads Electrodes placed: anterior-posterior Number of attempts: 1 Post-procedure rhythm: normal sinus rhy thm Complications: no complications Patient tolerance: Patient tolerated th e procedure well with no immediate complications Immediate Post-Procedure Note Date/Time: 02/20/2019 8:30 AM Assistants to the procedure: None Pre-procedure diagnosis: junctional bra dycardia Post-procedure diagnosis: NSR Procedures Performed: transcutaneous pa cing Specimens removed: None Estimated blood loss (mL): None Complications: None Type of anesthesia: None Grafts or Implants: None * Procedural sedation (02/20/2019 3:25 AM UNDERTAKER ASSISTANT) Narrative Performed At Ludwig Prince MD 02/20/2019 8:30 AM Procedural sedation Performed by: Ludwig Prince MD Authorized by: Ludwig Prince MD Consent: Consent obtained:Emergent situa tion See paper consent form. Indications: Sedation is required to allow for: pacing. Procedure necessitating sedation pe rformed by:Physician performing sedation Pre-sedation assessment: Clinician revi ewed the following: allergies, anesthesia history, family history, pat ient summary, pertinent labs, problem list, family history of anesthe tic complications and social history reviewed NPO status caution: urgency dictate s proceeding with non-ideal NPO status ASA classification: class 2 - patie nt with mild systemic disease Neck mobility: normal Mouth openin or more finger widths Mallampati score:I - soft palat e, uvula, fauces, pillars visible History of difficult intubation: no Immediate pre-procedure details: Reassessment: Patient reassessed im mediately prior to procedure Procedure details (see MAR for exact do sages): Sedation level: moderate (conscious) sedation, Preoxygenation:Nasal cannula Sedation:Ketamine Intra-procedure monitoring:Bloo d pressure monitoring, surveillance system monitor, continuous pulse oximetry, frequent LOC assessments and frequent vital sign checks Intra-procedure events: none Post Sedation Evaluation: Respiration: airway patent and returned to pre-procedure baselinsMental Status: re turned to pre-procedure baseline. Cardiovascular Function: returned to pr e-procedure baseline and post-procedural surveillance system monitor reviewe d The following have been reviewed and fo und to be within acceptable parameters: RR, HR, pulse ox, BP and te mp Pain Scale: 0/10 Nausea/Vomiting: no Hydration status: wnl Temperature within expected parameters :Temperature within defined limits @SLHSEDMULTIPLEVITALS@ * aPTT (02/20/2019 2:51 AM UNDERTAKER ASSISTANT) PTT 29.2 23.0 - 35.0 sec [facility] Specimen Blood Narrative Performed At Final Information (Auto Output) [facility] Performing Organization Address City/[facility] Ph one Number [facility] [address] [place] [phone] * B-type natriuretic factor (BNP) (02/20/2019 2:51 AM UNDERTAKER ASSISTANT) Only the most recent of 2 results within the time period is included. BNP 1,043 (H) 0 - 100 pg/mL [facility] Specimen Blood Performing Organization Address [facility] Ph one Number [facility] [address] [place] [phone] * HEMODIALYSIS INPATIENT (02/08/2019 12:14 PM UNDERTAKER ASSISTANT) Narrative Performed At Daisy Arango RN 02/08/2019 12:1 7 PM Lab Results Component Value Date HEPBSAG Nonreactive 02/03/2019 ] Lab Results Component Value Date GLUCOSE 109 (H) 02/08/2019 CALCIUM 9.3 02/08/2019 NA 135 (L) 02/08/2019 K 4.4 02/08/2019 CO2 29 02/08/2019 CL 99 02/08/2019 BUN 49 (H) 02/08/2019 CREATININE 8.20 (H) 02/08/2019 Lab Results Component Value Date WBC 2.8 (L) 02/08/2019 HGB 7.1 (L) 02/08/2019 HCT 22.1 (L) 02/08/2019 MCV 93.6 (H) 02/08/2019 PLT 83 (L) 02/08/2019 HD treatment for 4 hours completed. Net UF of 3L. Patient stable and did not have any complaints. Learne d 14mins before end of treatmentthat patient is for blood transfusion but floor nurse who acknowledged the order did not noti fy dialysis nurse, to be given in the floor. Patient stable. End orsed accordingly. * HEMODIALYSIS INPATIENT (02/06/2019 6:10 PM UNDERTAKER ASSISTANT) Narrative Performed At Richie Damico RN 02/06/2019 6:35 PM HD x 4 hrs. UF net 3.5 L. Treatment fadumo erated well. Pt awake and alert, not in distress. Lab Results Component Value Date WBC 3.6 02/06/2019 HGB 7.2 (L) 02/06/2019 HCT 21.8 (L) 02/06/2019 MCV 91.6 02/06/2019 PLT 84 (L) 02/06/2019 Lab Results Component Value Date GLUCOSE 198 (H) 02/06/2019 CALCIUM 9.4 02/06/2019 NA 132 (L) 02/06/2019 K 4.4 02/06/2019 CO2 29 02/06/2019 CL 94 (L) 02/06/2019 BUN 65 (H) 02/06/2019 CREATININE 9.73 (H) 02/06/2019 Lab Results Component Value Date HEPBSAG Nonreactive 02/03/2019 Vitals: 02/06/19 1800 BP: 129/61 Pulse: 70 Resp: 18 Temp: 97.6 F (36.4 C) SpO2: 98% * Antibody identification (02/03/2019 4:05 PM UNDERTAKER ASSISTANT) ANTIBODY ID (CATRINA) Anti-E SAFETRACE [place] UNID IgG Antibody Consult SIGNED OUTComment: Anti E SAFETRACE T X causes RBC injury, transfuse E negative RBCs.An IgG antibody of undetermined specificity is detected, transfuse crossmatch compatible RBCs.Electronic Signature: Karla Hirsch M.D. Specimen Performing Organization Address [facility] Ph one Number SAFETRACE [place] * Lactic acid, venous (02/03/2019 8:54 AM UNDERTAKER ASSISTANT) Lactate, Venous 0.2 (L) 0.5 - 2.2 mmol/L [facility] Specimen Blood Performing Organization Address [facility] Ph one Number [address] 3564 [facility] * HIV-1 Antigen with HIV-1/2 Antibody (02/03/2019 12:25 AM UNDERTAKER ASSISTANT) HIV-1 Antigen with HIV Nonreactive Nonreactive [facility] 1&2 Antibody [facility] Specimen Blood Performing Organization Address [facility] one [address] 770 [phone] [place] [address] * Hepatitis B Panel (02/03/2019 12:25 AM UNDERTAKER ASSISTANT) Hep B Core Total Ab Nonreactive Nonreactive [facility] Hep B S Ab 16.1 (H) <8.0 mIU/mL [facility] HBsAg Screen Nonreactive Nonreactive [facility] Specimen Blood Performing Organization Address [facility] one [address] 770 0 [phone] [address] * Hepatitis C antibody (02/03/2019 12:25 AM UNDERTAKER ASSISTANT) Hepatitis C Ab Nonreactive Nonreactive [facility] Specimen Blood Performing Organization Address [facility] one [place] [phone] [place] [address] * Direct [facility]HG (KAYLENE)/Direct Kayden (02/02/2019 7:57 PM UNDERTAKER ASSISTANT) Direct AHG-IGG POSITIVEComment: Microscopic [facility] positive by [facility] Direct AHG-C3B, C3D NEGATVIEComment: by [facility] Specimen Blood Performing Organization Address [facility] one [address] [address] [facility] * CARDIAC CATH REPORT - SCAN (01/31/2019 8:32 AM UNDERTAKER ASSISTANT) Narrative Performed At This result has an attachment that is n ot available. * HEMODIALYSIS INPATIENT (01/25/2019 8:35 PM UNDERTAKER ASSISTANT) Narrative Performed At Lionel Leyva RN 8:35 PM started HD procedure via left forearm a vf with bfr of 350 as prescribed. Net uf 4000cc Tolerated hd well Report given to primary careRN. Lab Results Component Value Date GLUCOSE 123 (H) 01/25/2019 CALCIUM 9.5 01/25/2019 NA 139 01/25/2019 K 4.2 01/25/2019 CO2 26 01/25/2019 CL 102 01/25/2019 BUN 22 (H) 01/25/2019 CREATININE 8.65 (H) 01/25/2019 Lab Results Component Value Date WBC 6.4 01/25/2019 HGB 8.0 (L) 01/25/2019 HCT 24.6 (L) 01/25/2019 MCV 95.0 (H) 01/25/2019 PLT 140 (L) 01/25/2019 Lab Results Component Value Date HEPBSAG Nonreactive 01/18/2019 * Vancomycin level, random (01/20/2019 4:09 AM UNDERTAKER ASSISTANT) Only the most recent of 3 results within the time period is included. Vancomycin Rm 15.1 ug/mL [facility] Specimen Blood Narrative Performed At Reference Range: No Normals [facility] Performing Organization Address [facility] Ph one Number [place] [address] [facility] * Calcium, Ionized (01/19/2019 3:18 AM UNDERTAKER ASSISTANT) Only the most recent of 3 results within the time period is included. Calcium, Ion 1.11 (L) 1.12 - 1.27 mmol/L [facility] pH, Blood 7.42 [facility] Specimen Blood Performing Organization Address [facility] Ph one Number [place] [address] [facility] * HEMODIALYSIS INPATIENT (01/18/2019 10:32 PM UNDERTAKER ASSISTANT) Narrative Performed At Shanell Pacheco RN 01/18/2019 10:32 PM Tolerated hd well with net UF of 3000 m l today. 1 unit RBC given during hd with no problem. Report given to MARKOS Ruiz. Post HD Vitals: Temp: 97.2 F (36.2 C) Temp Source: Oral Heart Rate: 76 Heart Rate Source: Monitor/Pulse Ox Resp: 20 BP: 160/73 Lab Results Component Value Date GLUCOSE 166 (H) 01/18/2019 CALCIUM 8.9 01/18/2019 NA 134 (L) 01/18/2019 K 4.5 01/18/2019 CO2 29 01/18/2019 CL 95 (L) 01/18/2019 BUN 38 (H) 01/18/2019 CREATININE 8.42 (H) 01/18/2019 MG 2.0 01/18/2019 PHOS 3.5 01/18/2019 Lab Results Component Value Date WBC 9.7 01/18/2019 HGB 6.5 (L) 01/18/2019 HCT 20.6 (L) 01/18/2019 MCV 96.7 (H) 01/18/2019 PLT 176 01/18/2019 Lab Results Component Value Date HEPBSAG Nonreactive 01/18/2019 HEPCAB Nonreactive 03/06/2014 * Anaerobic culture (01/18/2019 9:17 AM UNDERTAKER ASSISTANT) Only the most recent of 2 results within the time period is included. Result 4+ Bacteroides ovatus (A) [facility] Result 3+ Prevotella species [facility] (A)Comment: * - Prevotella [facility] bergensis Result 4+ Same organism has been [facility] isolated from culture(s) of [facility] the same body site and collection date. Repeat identification performed only after consultation with the clinical microbiology laboratory. (A) Comment: Refer to previous culture of * - Finegoldia magna Specimen Tissue Performing Organization Address City/State/Zipcode Ph one Number [address] [facility] * Surgically obtained culture + gram stain (01/18/2019 9:17 AM UNDERTAKER ASSISTANT) Only the most recent of 2 results within the time period is included. Result 3+ Same organism has been [facility] isolated from cultures(s) of [facility] the same body site and collection date. Repeat identification and susceptibility testing performed only after consultation with the clinical microbiology laboratory. (A) Comment: Refer to previous culture of Enterococcus species Result <1+ Same organism has been [facility] isolated from cultures(s) of [facility] the same body site and collection date. Repeat identification and susceptibility testing performed only after consultation with the clinical microbiology laboratory. (A) Comment: Refer to previous culture of Pseudomonas aeruginosa Gram Stain Result No White blood cells seen [facility] Gram Stain Result No organisms seen [facility] H [facility] Specimen Tissue Performing Organization Address City/State/Zipcode Ph one Number [facility] [address] [place], [place] [address] MEDICAL CENTER * Arterial doppler leg, left (01/17/2019 12:56 AM UNDERTAKER ASSISTANT) [facility] ECHO HEARTLAB [facility] Specimen Impressions Performed At Right Impression [facility] 1. The posterior tibial and dorsalis pe dis arteries are patent with biphasic/ triphasic Doppler waveforms. 2. The PT pressure is 231 mmHg with an EUGENE of 1.41 and the DP pressure is 285 mmHg with an EUGENE of 1.7, within non -compressible artery range. 3. The great toe pressure is 88 mmHg wi th an abnormal TBI of 0.54. 4. The digits have adequate flow by PPG waveforms. Left Impression 1. The common femoral, profunda femoral , superficial femoral and popliteal arteries are patent with normal triphas ic Doppler waveforms. 2. The posterior tibial, peroneal and a nterior tibial arteries are patent with mostly monophasic Doppler waveform s. 3. There is >50% stenosis in the distal anterior tibial artery. 4. The arteries are heavily calcified t hroughout. 5. Collateral flow is visualized throug hout. 6. The PT pressure is 234 mmHg with an EUGENE of 1.43 and the DP pressure is 226 mmHg with an EUGENE of 1.38, within no n-compressible artery range. 7. The great toe pressure and TBI are n ot obtained due to amputated great toe. 8. The 2nd and 5th digits have adequate flow; the 3rd and 4th digits have decreased flow by PPG waveforms. Conclusions Summary Arterial pressures and Doppler analysis were performed on the left lower extremity. Adequate Doppler waveforms w ere obtained. The common femoral, profunda femoral, superficial femoral a nd popliteal arteries were patent with normal triphasic Doppler waveforms . The posterior tibial, peroneal and anterior tibial arteries were paten t with mostly monophasic Doppler waveforms. There was >50% stenosis in t he distal anterior tibial artery. The arteries were heavily calcified thr oughout. Collateral flow was visualized throughout. The PT and DP AB I's were within non-compressible artery range. The great toe pressure an d TBI were not obtained due to amputated great toe. The 2nd and 5th di gits had adequate flow; the 3rd and 4th digits had decreased flow by PPG wa veforms. For comparison on the right, The PT and DP EUGENE's were within non-compressible artery range. The great toe pressure and TBI were abnorma l; the digits had adequate flow by PPG waveforms. Signature Velocities are measured in cm/s ; Diame ters are measured in cm LE Duplex Measurements Right Left + + + + + + + + + + !Location ! !PSV !EDV !Wavef orm! !PSV!ED V !Waveform ! + + + + + + + + + + !Mid Common Femoral ! !181 !! ! + + + + +--- + !Prox PFA ! !112!! ! + + + + +--- + !Prox SFA ! !194!! ! + + + + +--- + !Mid SFA ! !204 !! ! + + + + +--- + !Dist SFA ! !153!! ! + + + + +--- + !Prox Popliteal ! !1 08!! ! + + + + +--- + !Dist Popliteal ! !1 09!! ! + + + + +--- + !Prox DRIFTMAN ! !65.2 !! ! + + + + +--- + !Mid DRIFTMAN ! !67.6 !! ! + + + + +--- + !Dist DRIFTMAN ! !80.1 !! ! + + + + +--- + !Prox ERASMO ! !134!! ! + + + + +--- + !Mid ERASMO ! !113 !! ! + + + + +--- + !Dist ERASMO ! !344!! ! + + + + +--- + !Prox Peroneal ! !115 !! ! + + + + +--- + !Mid Peroneal ! !147!! ! + + + + +--- + !Dist Peroneal ! !87.2 !! ! + + + + +--- + Narrative Performed At LAB - Lower Extremity Arterial Duplex SLE ECHO [facility] Patient Name YASSINE CARLSON Date of Study 01/17/2019 DAVEY BRYSON JR. [id number] Age 58 Visit Number [id number] GenderMale Accession Number [id number] Date of 1960 ReferringTerrence Willett Room Number ED7 MD Juvencio SonographPhysician MARYCRUZ Blount Procedure Type of Study: Extremities Arteries: Lower Extremities Arterial Duplex, ARTERIAL DOPPLER LEG, LEFT. Indications for Study:Wound check . Patient Status:STAT. Study Location:Portable. Technical Quality:Adequate visualizatio n. Risk Factors History of Disease + +----+ + !Diagnosis!Date!Comments ! + +----+ + !History/Risk Factors:!!HTN, HL D, ESRD, Left Arm AV Fistula, PVD, DM ! + +----+ + Procedure Note Interface, External Ris In - 01/17/2019 10:25 AM UNDERTAKER ASSISTANT PV LAB - Lower Extremity Arterial Duplex Demographics Patient Name YASSINE CARLSON Date of Study 01/17/2019 ALICE ABDUL Age 58 Visit Number [id number] Gender Male Accession Number [id number] Date of 1960 Referring Terrence Willett Room Number ED7 Physician Myah MD Dot Etcher Reynaldo Broderick Interpreting Physician MARYCRUZ Parisi Procedure Type of Study: Extremities Arteries: Lower Extremities Arterial Duplex, ARTERIAL DOPPLER LEG, LEFT. Indications for Study:Wound check . Patient Status:STAT. Study Location:Portable. Technical Quality:Adequate visualization. Risk Factors History of Disease + +----+ + !Diagnosis !Date!Comments ! + +----+ + !History/Risk Factors:! !HTN, HLD, ESRD, Left Arm AV Fistula, PVD, DM ! + +----+ + Impressions Right Impression FOR COMPARISON 1. The posterior tibial and dorsalis ped is arteries are patent with biphasic/ triphasic Doppler waveforms. 2. The PT pressure is 231 mmHg with an A BI of 1.41 and the DP pressure is 285 mmHg with an EUGENE of 1.7, within non- compressible artery range. 3. The great toe pressure is 88 mmHg wit h an abnormal TBI of 0.54. 4. The digits have adequate flow by PPG waveforms. Left Impression 1. The common femoral, profunda femoral, superficial femoral and popliteal arteries are patent with normal triphasic Doppler waveforms. 2. The posterior tibial, peroneal and an terior tibial arteries are patent with mostly monophasic Doppler waveforms. 3. There is >50% stenosis in the distal anterior tibial artery. 4. The arteries are heavily calcified th roughout. 5. Collateral flow is visualized through out. 6. The PT pressure is 234 mmHg with an A BI of 1.43 and the DP pressure is 226 mmHg with an EUGENE of 1.38, within non -compressible artery range. 7. The great toe pressure and TBI are no t obtained due to amputated great toe. 8. The 2nd and 5th digits have adequate flow; the 3rd and 4th digits have decreased flow by PPG waveforms. Conclusions Summary Arterial pressures and Doppler analysis were performed on the left lower extremity. Adequate Doppler waveforms were obtained. The common femoral, profunda femoral, superficial femoral and popliteal arteries were patent with normal triphasic Doppler waveforms. The posterior tibial, peroneal and anterior tibial arteries were patent with mostly monophasic Doppler waveforms. There was >50% stenosis in the distal anterior tibial artery. The arteries were heavily calcified throughout. Collateral flow was visualized throughout. The PT and DP EUGENE's were within non-compressible artery range. The great toe pressure and TBI were not obtained due to amputated great toe. The 2nd and 5th digits had adequate flow; the 3rd and 4th digits had decreased flow by PPG waveforms. For comparison on the right, The PT and DP EUGENE's were within non-compressible artery range. The great toe pressure and TBI were abnormal; the digits had adequate flow by PPG waveforms. Signature Velocities are measured in cm/s ; Diameters are measured in cm LE Duplex Measurements Right Left + + + + + + + + + + !Location ! !PSV !EDV !Waveform ! !PSV !EDV !Waveform ! + + + + + + + + + + !Mid Common Femoral ! !181 ! ! ! + + + + + + !Prox PFA ! !112 ! ! ! + + + + + + !Prox SFA ! !194 ! ! ! + + + + + + !Mid SFA ! !204 ! ! ! + + + + + + !Dist SFA ! !153 ! ! ! + + + + + + !Prox Popliteal ! !108 ! ! ! + + + + + + !Dist Popliteal ! !109 ! ! ! + + + + + + !Prox DRIFTMAN ! !65.2 ! ! ! + + + + + + !Mid DRIFTMAN ! !67.6 ! ! ! + + + + + + !Dist DRIFTMAN ! !80.1 ! ! ! + + + + + + !Prox ERASMO ! !134 ! ! ! + + + + + + !Mid ERASMO ! !113 ! ! ! + + + + + + !Dist ERASMO ! !344 ! ! ! + + + + + + !Prox Peroneal ! !115 ! ! ! + + + + + + !Mid Peroneal ! !147 ! ! ! + + + + + + !Dist Peroneal ! !87.2 ! ! ! + + + + + + Performing Organization Address City/[facility]/Zipcode Ph one Number [facility] ECHO HEARTLAB [facility] * C-Reactive Protein (01/16/2019 9:21 PM UNDERTAKER ASSISTANT) CRP 10.00 (H) 0.00 - 0.50 mg/dL [facility] Specimen Blood Performing Organization Address City/[facility] Ph one Number [place] [phone] [facility] * Comprehensive metabolic panel (01/16/2019 9:21 PM UNDERTAKER ASSISTANT) Protein, Total 7.0 6.0 - 8.3 gm/dL [facility] Albumin 3.8 3.5 - 5.0 g/dL [facility] Alkaline Phosphatase 74 40 - 150 U/L [facility] Total Bilirubin 0.5 0.2 - 1.2 mg/dL [facility] Sodium 138 136 - 145 meq/L [facility] Potassium 3.9 3.5 - 5.1 meq/L [facility] Chloride 97 (L) 98 - 107 meq/L [facility] CO2 32 (H) 22 - 29 meq/L [facility] BUN 23 (H) 7 - 21 mg/dL [facility] Creatinine 5.79 (H) 0.57 - 1.25 mg/dL [facility] Glucose 122 (H) 70 - 105 mg/dL [facility] Calcium 9.3 8.4 - 10.2 mg/dL [facility] AST 13 5 - 34 U/L [facility] ALT 11 6 - 55 U/L [facility] EGFR 10Comment: ESTIMATED GFR IS mL/min/1.[address] [facility] NOT ACCURATE CREATININE [facility] CENTER CLEARANCE IN PREDICTING GLOMERULAR FILTRATION RATE. ESTIMATED GFR IS NOT APPLICABLE FOR DIALYSIS PATIENTS. Specimen Blood Performing Organization Address City/State/Zipcode Ph one Number [facility] [address], [place] [address] MED[facility]ENTER after 10/11/2018 Insurance Payer Benefit Subscriber ID Type Phone Address Plan / Group MEDICARE MEDICARE A xxxxxxxxxxx Medicare B MEDICAID - MEDICAID MGD MEDICAID xxxxxxxxx Medica id CARE [employer] Non-Contra cted CDC REVIEW CDC REVIEW xxxxxxxx [address] [place] [place] [address] [phone] Advance Directives For more information, please contact: [facility] [address], [place] [id number] Date Inactivated Comments Code Status Date Activated 10/07/2019 7:38 PM Full Code 10/06/2019 9:37 PM This code status was determined by: Patient 08/14/2019 9:34 PM Full Code 08/08/2019 2:05 PM This code status was determined by: Patient 04/08/2019 4:54 PM Full Code 04/07/2019 6:24 AM This code status was determined by: Patient 03/13/2019 11:09 PM Full Code 03/08/2019 12:58 AM This code status was determined by: Patient 02/23/2019 5:13 PM Full Code 02/20/2019 5:13 AM This code status was determined by: Patient
--- OUTSIDE RECORDS SUMMARY | 2019-10-12 20:16 | XMS REPORT | Continuity of Care Document ---
Author Author Buru BuruYASSINE Organization Buru Buru Address Unknown Phone Unavailable Care Team Providers Care Panel Maker Name Role Phone [employer] Unavailable Un available Problems Problem Status Onset Date Classification Date Reported Comments Source Abnormal Liver Function Test A ctive 03/25/2012 [facility] Type 2 Diabetes Mellitus Active 03/25/2012 [facility] End Stage Renal Disease Active 03/25/2012 on dialysis M-W-F [facility] Hypertension Active 03/25/2012 [facility] Otitis Externa Active 03/25/2012 [facility] Joint Pain, Localized In The Hip Active 03/25/2012 [facility] Medications Medication Details Route Status Patient Instructions Ordering Provider Order Date Source Ciprodex 0.3-0.1 % Otic Suspension ; Start Date: 03/25/2012; End Date: (Active) Active 03/25/2012 [facility] CloNIDine HCl 0.1 MG Oral Tablet ; Start Date: 10/30/2011 (Active) Active 10/30/2011 [facility] Precision Xtra Blood Glucose In Vitro Strip ; Start Date: 07/07/2011; End Date: (Active) Active 07/07/2011 [facility] Minoxidil 10 MG Oral Tablet ; Start Date: 07/07/2011; End Date: (Active) Active 07/07/2011 [facility] Carvedilol 25 MG Oral Tablet ; Start Date: 06/22/2011 (Active) Active 06/22/2011 [facility] Isosorbide Mononitrate ER 60 MG Oral Tab let Extended Release 24 Hour ; Start Date: 06/22/2011 (Active) Active 06/22/2011 [facility] Renagel 800 MG Oral Tablet ; S tart Date: 06/22/2011 (Active) Active 06/22/2011 [facility] Vitamin D (Ergocalciferol) 35777 UNIT Oral Capsule ; Start Date: 06/22/2011 (Active) Active 06/22/2011 [facility] Furosemide 40 MG Oral Tablet ; Start Date: 06/22/2011 (Active) Active 06/22/2011 [facility] Lisinopril 40 MG Oral Tablet ; Start Date: 06/22/2011 (Active) Active 06/22/2011 [facility] NovoLIN R 100 UNIT/ML Injection Solution ; Start Date: ; End Date: (Active) Inactive [facility] Doxazosin Mesylate 4 MG Oral Tablet (Active) Active [facility] TraMADol HCl 50 MG Oral Tablet (Active) Active [facility] Allergies, Adverse Reactions, Alerts Substance Category Reaction Severity Reaction type Status Date Reported Comments Source No Known Drug Allergies drug a llergy drug aller gy Active [facility] Immunizations No Data Provided for This Section Results No Data Provided for This Section Pathology Reports No Data Provided for This Section Diagnostic Reports No Data Provided for This Section Consultation Notes No Data Provided for This Section Discharge Summaries No Data Provided for This Section History and Physicals No Data Provided for This Section Vital Signs No Data Provided for This Section Encounters Location Location Details Encounter Type Encounter Number Reason For Visit Attending Provider ADM Date DC Date Status Source AUDIT [id number] 01/13/2012 01/13/2012 [facility] AUDIT [id number] 02/21/2012 02/21/2012 [facility] AUDIT [id number] 03/25/2012 03/25/2012 [facility] Meaghan RAYMUNDO lina: IRINA BAEZ, Status: Pen, Time: 10:30 AM [id number] 04/01/2012 03/25/2012 [facility] Procedures No Data Provided for This Section Assessment and Plan No Data Provided for This Section Plan of Care Plan of Care Date Source [QLH] CBC (INCLUDES DIFF/PLT) 06/22/2011 Routine[L] TSH reflex to T4F 06/22/2011 Routine[QLH] CMP W/EGFR 06/22/2011 Routine[QLH] LIPID PANEL 06/22/2011 RoutineEndocrinology Referral 06/22/2011 RoutineCardiology Referral 06/22/2011 RoutineOphthalmology Referral 07/20/2011 Routine 03/25/2012 [facility] [QL] LIPID PANEL 06/22/2011 Routine[QLH ] CBC (INCLUDES DIFF/PLT) 06/22/2011 Routine[L] TSH reflex to T4F 06/22/2011 Routine[QLH] CMP W/EGFR 06/22/2011 RoutineOphthalmology Referral 07/20/2011 RoutineEndocrinology Referral 06/22/2011 RoutineCardiology Referral 06/22/2011 Routine 02/21/2012 [facility] [QL] CBC (INCLUDES DIFF/PLT) 06/22/2011 Routine[L] TSH reflex to T4F 06/22/2011 Routine[QLH] CMP W/EGFR 06/22/2011 Routine[QLH] LIPID PANEL 06/22/2011 RoutineEndocrinology Referral 06/22/2011 RoutineCardiology Referral 06/22/2011 RoutineOphthalmology Referral 07/20/2011 Routine 01/13/2012 [facility] Social History Social History Date Source No History of Alcohol Use Comments: stop ped about 6 months ago when started dialysis for ESRD (Denied) No History of Drug Use (Denied) Former Smoker (V15.82); (Active) 03/25/2012 [facility] Family History Value Date S ource Family history of Type 2 Diabetes [facility] (Active) Paternal history of Hypertension (V17.49); (Active) Maternal history of Breast Cancer (V16.3); (Active) 03/25/2012 [facility] Maternal history of Breast Cancer (V16.3 ); (Active) Paternal history of Hypertension (V17.49); (Active) Family history of Type 2 Diabetes Mellitus (Active) 02/21/2012 [facility] Family history of Type 2 Diabetes [facility] (Active) Paternal history of Hypertension (V17.49); (Active) Maternal history of Breast Cancer (V16.3); (Active) 01/13/2012 [facility] Advance Directives Order Name Results Value Date Source Advance Directives Advance Dir ectives No Advance Directives available. 03/25/2012 [facility] Advance Directives Advance Dir ectives No Advance Directives available. 02/21/2012 [facility] Advance Directives Advance Dir ectives No Advance Directives available. 01/13/2012 [facility] Functional Status No Data Provided for This Section
--- OUTSIDE RECORDS SUMMARY | 2019-10-12 20:16 | XMS REPORT ---
Author Author YASSINE Han Organization Unknown Address Unknown Phone Care Team Providers Care Assistant Director Of Financial Aid Name Role Phone Antonio Han PP Unavailable Reason for Referral No Reason for Referral was given. History of Present Illness No HPI available. Problems * Normal Routine History And Physical Adult (V70.0); (Active) * Abnormal Liver Function Test (790.6); (Active) * Type 2 Diabetes Mellitus (250.00); (Active) * End Stage Renal Disease Comments: on dialysis M-W-F (585.6); (Active) * Hypertension (401.9); (Active) * Otitis Externa (380.10); (Active) * Joint Pain, Localized In The Hip (719.45); (Active) Medication * Carvedilol 25 MG Oral Tablet; TAKE 2 TABLET Every twelve hours; Start Date: 06/22/2011 (Active) * Isosorbide Mononitrate ER 60 MG Oral Tablet Extended Release 24 Hour; TAKE 2 TABLET DAILY; Start Date: 06/22/2011 (Active) * Renagel 800 MG Oral Tablet; TAKE 2 TABLET 3 TIMES DAILY; Start Date: 06/22/2011 (Active) * Vitamin D (Ergocalciferol) 03250 UNIT Oral Capsule; TAKE 1 CAPSULE WEEKLY; Start Date: 06/22/2011 (Active) * Precision Xtra Blood Glucose In Vitro Strip; USE 1 STRIP 3 TIMES DAILY; Start Date: 07/07/2011; End Date: (Active) * Furosemide 40 MG Oral Tablet; TAKE 3 TABLET DAILY; Start Date: 06/22/2011 (Active) * Lisinopril 40 MG Oral Tablet; TAKE 1 TABLET DAILY; Start Date: 06/22/2011 (Active) * Doxazosin Mesylate 4 MG Oral Tablet; TAKE 1 TABLET DAILY. (Active) * Minoxidil 10 MG Oral Tablet; TAKE 0.5 TABLET DAILY; Start Date: 07/07/2011; End Date: (Active) * NovoLIN R 100 UNIT/ML Injection Solution; use as directed per sliding scale; Start Date: ; End Date: (Active) * CloNIDine HCl 0.1 MG Oral Tablet; TAKE 1 TABLET TWICE DAILY.; Start Date: 10/30/2011 (Active) * TraMADol HCl 50 MG Oral Tablet; TAKE 1 TABLET 4 TIMES DAILY PRN (Active) * Ciprodex 0.3-0.1 % Otic Suspension; INSTILL 4 DROPS IN THE AFFECTED EAR(S) TWICE DAILY; Start Date: 03/25/2012; End Date: (Active) Allergies and Adverse Reactions * No Known Drug Allergies (Active) Past Medical History * History of Type 2 Diabetes Mellitus (250.00); (Resolved) * History of Hypertension (401.9); (Resolved) * History of End Stage Renal Disease Comments: on dialysis F_W_F (585.6); (Resolved) * History of Diabetic Peripheral Neuropathy Type 2 - Uncontrolled (357.2); (Resolved) Procedures Procedure Procedure Date Date Completed Status Cath Extremity Artery For Dialysis Additional Access For The rapeutic Interven - - Resolved Family History * Family history of Type 2 Diabetes Mellitus (Active) * Paternal history of Hypertension (V17.49); (Active) * Maternal history of Breast Cancer (V16.3); (Active) Social History * No History of Alcohol Use Comments: stopped about 6 months ago when started dialysis for ESRD (Denied) * No History of Drug Use (Denied) * Former Smoker (V15.82); (Active) Treatment Plan * [QLH] CBC (INCLUDES DIFF/PLT) 06/22/2011 Routine * [L] TSH reflex to T4F 06/22/2011 Routine * [QLH] CMP W/EGFR 06/22/2011 Routine * [QLH] LIPID PANEL 06/22/2011 Routine * Endocrinology Referral 06/22/2011 Routine * Cardiology Referral 06/22/2011 Routine * Ophthalmology Referral 07/20/2011 Routine Advance Directives * No Advance Directives available. Encounters * AUDIT 03/25/2012 * [facility], Provider: IRINA BAEZ, Status: Pen, Time: 10:30 AM 04/01/2012
--- OUTSIDE RECORDS SUMMARY | 2019-10-12 20:16 | XMS REPORT ---
Author Author YASSINE DELEON [facility] Organization Unknown Address Unknown Phone Care Team Providers Care Fire Protection Designer Name Role Phone ALLEGRA DELEON PP Unavailable Reason for Referral No Reason for Referral was given. History of Present Illness No HPI available. Problems * Normal Routine History And Physical Adult (V70.0); (Active) * Abnormal Liver Function Test (790.6); (Active) * Type 2 Diabetes Mellitus (250.00); (Active) * End Stage Renal Disease Comments: on dialysis M-W-F (585.6); (Active) * Hypertension (401.9); (Active) Medication * Carvedilol 25 MG Oral Tablet; TAKE 2 TABLET Every twelve hours; Start Date: 06/22/2011 (Active) * Renagel 800 MG Oral Tablet; TAKE 2 TABLET 3 TIMES DAILY; Start Date: 06/22/2011 (Active) * Vitamin D (Ergocalciferol) 45830 UNIT Oral Capsule; TAKE 1 CAPSULE WEEKLY; Start Date: 06/22/2011 (Active) * Isosorbide Mononitrate ER 60 MG Oral Tablet Extended Release 24 Hour; TAKE 2 TABLET DAILY; Start Date: 06/22/2011 (Active) * Furosemide 40 MG Oral Tablet; TAKE 3 TABLET DAILY; Start Date: 06/22/2011 (Active) * Lisinopril 40 MG Oral Tablet; TAKE 1 TABLET DAILY; Start Date: 06/22/2011 (Active) * NovoLIN R 100 UNIT/ML Injection Solution; use as directed per sliding scale; Start Date: ; End Date: (Active) * Minoxidil 10 MG Oral Tablet; TAKE 0.5 TABLET DAILY; Start Date: 07/07/2011; End Date: (Active) * Precision Xtra Blood Glucose In Vitro Strip; USE 1 STRIP 3 TIMES DAILY; Start Date: 07/07/2011; End Date: (Active) * CloNIDine HCl 0.1 MG Oral Tablet; TAKE 1 TABLET TWICE DAILY.; Start Date: 10/30/2011 (Active) * Doxazosin Mesylate 4 MG Oral Tablet; TAKE 1 TABLET DAILY. (Active) * TraMADol HCl 50 MG Oral Tablet; TAKE 1 TABLET 4 TIMES DAILY PRN (Active) Allergies and Adverse Reactions * No [...] No Advance Directives available. Encounters * AUDIT 01/13/2012
--- OUTSIDE RECORDS SUMMARY | 2019-10-12 20:16 | XMS REPORT ---
Author Author YASSINE Monteiro Organization Unknown Address Unknown Phone Care Team Providers Care Dry Chain Puller Name Role Phone [place], Sana PP Unavailable Reason for Referral No Reason for Referral was given. History of Present Illness No HPI available. Problems * Hypertension (401.9); (Active) * End Stage Renal Disease Comments: on dialysis M-W-F (585.6); (Active) * Type 2 Diabetes Mellitus (250.00); (Active) * Abnormal Liver Function Test (790.6); (Active) * Normal Routine History And Physical Adult (V70.0); (Active) Medication * Minoxidil 10 MG Oral Tablet; TAKE 0.5 TABLET DAILY; Start Date: 07/07/2011; End Date: (Active) * CloNIDine HCl 0.1 MG Oral Tablet; TAKE 1 TABLET TWICE DAILY.; Start Date: 10/30/2011 (Active) * Carvedilol 25 MG Oral Tablet; TAKE 2 TABLET Every twelve hours; Start Date: 06/22/2011 (Active) * Renagel 800 MG Oral Tablet; TAKE 2 TABLET 3 TIMES DAILY; Start Date: 06/22/2011 (Active) * Vitamin D (Ergocalciferol) 27582 UNIT Oral Capsule; TAKE 1 CAPSULE WEEKLY; Start Date: 06/22/2011 (Active) * NovoLIN R 100 UNIT/ML Injection Solution; use as directed per sliding scale; Start Date: ; End Date: (Active) * Isosorbide Mononitrate ER 60 MG [...] TABLET 4 TIMES DAILY PRN (Active) * Precision Xtra Blood Glucose In Vitro Strip; USE 1 STRIP 3 TIMES DAILY; Start Date: 07/07/2011; End Date: (Active) Allergies and Adverse Reactions * No Known Drug Allergies (Active) Past Medical History * History of Diabetic Peripheral Neuropathy Type 2 - Uncontrolled (357.2); (Resolved) * History of End Stage Renal Disease Comments: on dialysis F_W_F (585.6); (Resolved) * History of Hypertension (401.9); (Resolved) * History of Type 2 Diabetes Mellitus (250.00); (Resolved) Procedures Procedure Procedure Date Date Completed Status Cath Extremity Artery For Dialysis Additional Access For The rapeutic Interven - - Resolved Family History * Maternal history of Breast Cancer (V16.3); (Active) * Paternal history of Hypertension (V17.49); (Active) * Family history of Type 2 Diabetes Mellitus (Active) Social History * No History of Drug Use (Denied) * No History of Alcohol Use Comments: stopped about 6 months ago when started dialysis for ESRD (Denied) * Former Smoker (V15.82); (Active) Treatment Plan * [QLH] LIPID PANEL 06/22/2011 Routine * [QLH] CBC (INCLUDES DIFF/PLT) 06/22/2011 Routine * [L] TSH reflex to T4F 06/22/2011 Routine * [QLH] CMP W/EGFR 06/22/2011 Routine * Ophthalmology Referral 07/20/2011 Routine * Endocrinology Referral 06/22/2011 Routine * Cardiology Referral 06/22/2011 Routine Advance Directives * No Advance Directives available. Encounters * AUDIT 02/21/2012
--- OUTSIDE RECORDS SUMMARY | 2019-10-12 20:18 | XMS REPORT | Summary of Care ---
Author Author [facility] Organization [facility] Address Unknown Phone Unavailable Care Team Providers Care Co Chairman Name Role Phone System, Pcp Not In PCP Reason for Referral * Radiology Services (Routine) Referred By Contact Referred To Contact Status Reason Specialty Diagnoses / Procedures Kj Hammond DPM [address] [place] [address] Radiology, [place] [address], [address] [place] [address] Pending Radiology Diagnoses Foot pain, left P rocedures XR FOOT LEFT (COMPLETE) Reason for Visit * Reason Comments Follow Up Encounter Details Care Team Description Date Type Department Kj Hammond DPM [address] [place] [address] [phone] Follow Up 07/20/2019 Office Visit [facility] Vascular Surgery [address] [facility]. 6th [address], [address] [place] [address] Allergies No Known Allergiesdocumented as of this encounter (statuses as of 07/28/2019) Medications End Date Status Medication Sig Dispensed Refills Start Date Active carvedilol (COREG) 25 MG Take 25 mg by 0 tablet mouth 2 times daily (with meals). Active lisinopril (PRINIVIL, Take 40 mg by 0 ZESTRIL) 20 MG tablet mouth daily. Active amlodipine (NORVASC) 5 MG Take 5 mg by 0 tabletIndications: Other mouth two and unspecified angina times daily. pectoris, Type II or unspecified type diabetes mellitus without mention of complication, not stated as uncontrolled, Chronic renal failure, stage 1, Essential hypertension, Type II or unspecified type diabetes mellitus with peripheral circulatory disorders, not stated as uncontrolled(250.70) Active hydrALAZINE (APRESOLINE) Take 100 mg 0 100 MG tabletIndications: by mouth 3 Other and unspecified times daily. angina pectoris, Type II or unspecified type diabetes mellitus without mention of complication, not stated as uncontrolled, Chronic renal failure, stage 1, Essential hypertension, Type II or unspecified type diabetes mellitus with peripheral circulatory disorders, not stated as uncontrolled(250.70) Active insulin regular (HUMULIN Inject into 0 R) 100 Units/mL the skin 3 injectionIndications: times daily Other and unspecified (before angina pectoris, Type II meals). or unspecified type diabetes mellitus without mention of complication, not stated as uncontrolled, Chronic renal failure, stage 1, Essential hypertension, Type II or unspecified type diabetes mellitus with peripheral circulatory disorders, not stated as uncontrolled(250.70) Active Sevelamer Carbonate Take 800 mg 0 (RENVELA) 800 MG by mouth 3 TABSIndications: Other times daily. and unspecified angina pectoris, Type II or unspecified type diabetes mellitus without mention of complication, not stated as uncontrolled, Chronic renal failure, stage 1, Essential hypertension, Type II or unspecified type diabetes mellitus with peripheral circulatory disorders, not stated as uncontrolled(250.70) Active gabapentin (NEURONTIN) Take 100 mg 0 100 MG capsule by mouth 3 times daily. Active Multiple Vitamin (MULTI Take by 0 VITAMIN DAILY OR) mouth. Active Na Sulfate-K Sulfate-Mg [SUPREP] Take 1 Bottle 0 Sulf (SUPREP BOWEL PREP as directed. 9 KIT) 17.5-3.13-1.6 GM/177ML SOLN Active Dakins (SODIUM Apply to 500 mL 1 HYPOCHLORITE) 0.25 % SOLN affected area 0 daily documented as of this encounter (statuses as of 07/28/2019) Active Problems Problem Noted Date PAD (peripheral artery disease) (HCCode) 04/28/2019 Non-healing wound of left heel 04/28/2019 Type 2 diabetes mellitus with diabetic neuropathic ar thropathy, with 03/27/2019 long-term current use of insulin (HCCod e) Skin ulcer of left heel with fat layer exposed (HCCod e) 03/27/2019 ESRD (end stage renal disease) on dialysis (HCCode) 03/21/2015 HLD (hyperlipidemia) 03/21/2015 Hyperparathyroidism (HCCode) 03/21/2015 Pre-transplant evaluation for ESRD (end stage renal d isease) 03/21/2015 Other and unspecified angina pectoris Type II or unspecified type diabetes me llitus without mention of complication, not stated as uncontrolle d Chronic renal failure Hypertension Type II or unspecified type diabetes me llitus with peripheral circulatory disorders, not stated as uncontrolled(2 50.70) documented as of this encounter (statuses as of 07/28/2019) Social History Date Tobacco Use Types Packs/Day Years Used Quit: 05/04/2010 Former Smoker Smokeless Tobacco: Never Used Drinks/Week oz/Week Comments Alcohol Use No Sex Assigned at Date Recorded Not on file Industry Job Start Date Occupation Not on file Not on file Not on file Travel End Travel History Travel Start No recent travel history available. Date Recorded COVID-19 Exposure Response 07/20/2019 10:44 AM CDT In the last month, have you been in contact with No / Unsure someone who was confirmed or suspected to have Coronavirus / COVID-19? documented as of this encounter Last Filed Vital Signs Reading Time Taken Comments Vital Sign 149/69 07/20/2019 11:55 AM CDT Blood Pressure 79 07/20/2019 11:55 AM CDT Pulse - - Temperature - - Respiratory Rate - - Oxygen Saturation - - Inhaled Oxygen Concentration 88.5 kg (195 lb) 07/20/2019 11:55 AM CDT Weight 185.4 cm (6' 1") 07/20/2019 11:55 AM CDT Height 25.73 07/20/2019 11:55 AM CDT Body Mass Index documented in this encounter Patient Instructions * Patient Instructions* Lima Fernandez CMA - 07/20/2019 12:13 PM CDT Thank you for choosing [facility]. You may receive a survey in the mail. Please provide comments to let us know how we can improve our patient care. Instructions for your care: Patient will follow up after surgery Vashe wet to dry dressing was applied in the office Kj Hammond DPM consumer marketing specialist Division of Vascular Surgery and Endovascular Therapy If you have any questions, please feel free to call us at: documented in this encounter Progress Notes * Kj Hammond DPM - 07/20/2019 11:15 AM CDT Subjective: Mr. Addi Carlson Jr. is a pleasant 58 y.o. male who returns to the in today for follow up to chronic ulceration of the left heel. Patient had be en scheduled for split thickness skin grafting however due to the current COVID- 19 crisis patient is reluctant for any hospitalizations at this time Chief Complaint Patient presents with Follow Up . he admits to to being compliant with his local wound care consisting of use of Dakin's wet-to-dry dressing and offloading. He denies any additional complain ts today. No results found for: HGBA1C. Physical Exam: Wound site left calcaneal region presents measuring 7.0cmx6.0cmx0.1cm. The woun d site presents with granular wound base with scant fibrotic tissue formation. There is not any evidence of edema, erythema, purulence, malodor, probe to bone, tracking or tunneling noted. The wound site is improving. His nails are thickened and discolored 9 Assessment/Plan: Encounter Diagnosis and Orders ICD-10-CM 1. Foot pain, left M79.672 XR FOOT LEFT (COMPLETE) X-rays were reviewed at this visit. No cortical involvement was noted. 2. Type 2 diabetes mellitus with diabetic neuropathic arthropathy, with long-ter m current use of insulin (HCCode) E11.610 Z79.4 3. PAD (peripheral artery disease) (HCCode) I73.9 4. Heel ulceration, left, with fat layer exposed (HCCode) L97.422 At this time p atient was advised to continue local wound care with Dakin's wet-to-dry dressing . He'll be scheduled at a later date for split thickness skin grafting Cont offloading of heel 5. Onychomycosis B35.1 Nails are sharp or debrided 9 Kj Hammond DPM documented in this encounter Plan of Treatment Care Team Description Date Type Specialty Kj Hammond DPM [address] [place] [address] [phone] 08/08/2019 Appointment Vascular Surgery Roland Wilson MD [address] [place], [place] [id number] 08/08/2019 Appointment Vascular Surgery Kj Hammond DPM [address] [place] [address] 08/23/2019 Office Visit Vascular Surgery Order Schedule Name Type Priority Associated Diag noses 1 Occurrences starting 07/20/2019 until 02/19/2020 XR FOOT LEFT (COMPLETE) Imaging Routine Foot p ain, left Health Maintenance Due Date Last Done Comments TETANUS SHOT (ADULT) 1977 ANNUAL DIABETIC FOOT EXAM 1980 ANNUAL DIABETIC 1980 RETINOPATHY SCREENING MEDICARE AWV (Initial) 04/30/2011 FLU VACCINE > 6 MONTHS 09/30/2019 BMI FOLLOW UP PLAN 04/24/2020 04/24/2019 COLON CANCER SCREENIN05/31/2024 05/31/2014 COLONOSCOPY HEPATITIS C SCREENING Completed 02/03/2019 HIV SCREENING Completed 02/03/2019 documented as of this encounter Results Not on filedocumented in this encounter Visit Diagnoses Diagnosis Foot pain, left - Primary Pain in limb Type 2 diabetes mellitus with diabetic neuropathic arthropathy, with long-term current use of insulin (HCCode) PAD (peripheral artery disease) (HCCode ) Unspecified disorders of arteries and a rterioles Heel ulceration, left, with fat layer e xposed (HCCode) Onychomycosis Dermatophytosis of nail documented in this encounter Insurance Type Payer Benefit Subscriber ID Effective Phone Address Plan / Dates Group Medicare MEDICARE MEDICARE xxxxxxxxxxx 2018- [address] Present [id number] [place] [address] Medicaid MEDICAID [employer] xxxxxxxxx 2019-P [id number] [place] [address] [phone] (Home) [place], [place] [phone] documented as of this encounter
--- OUTSIDE RECORDS SUMMARY | 2019-10-12 20:18 | XMS REPORT | Summary of Care ---
Author Author [facility] Organization [facility] Address Unknown Phone Unavailable Care Team Providers Care Dental Laboratory Technician Apprentice Name Role Phone System, Pcp Not In PCP Reason for Visit * Reason Comments Wound Check Encounter Details Care Team Description Date Type Department Kj Hammond DPM [address] [place] [address] Wound Check 03/27/2019 Office Visit [facility] Vascular Surgery [address] [facility]. 6th [address], [address] [place] [address] Allergies No Known Allergiesdocumented as of this encounter (statuses as of 03/29/2019) Medications End Date Status Medication Sig Dispensed [...] as of this encounter (statuses as of 03/29/2019) Active Problems Problem Noted Date Type 2 diabetes mellitus with diabetic neuropathic [...] as of this encounter (statuses as of 03/29/2019) Social History Date Tobacco Use Types Packs/Day Years Used Quit: 05/04/2010 Former Smoker Drinks/Week oz/Week Comments Alcohol Use No Sex Assigned at Date Recorded Not on file Industry Job Start Date Occupation Not on file Not on file Not on file Travel End Travel History Travel Start No recent travel history available. documented as of this encounter Last Filed Vital Signs Reading Time Taken Comments Vital Sign 152/65 03/27/2019 3:25 PM AIR CREW OFFICER Blood Pressure 66 03/27/2019 3:25 PM AIR CREW OFFICER Pulse - - Temperature - - Respiratory Rate - - Oxygen Saturation - - Inhaled Oxygen Concentration 93.9 kg (207 lb) 03/27/2019 3:25 PM AIR CREW OFFICER Weight - - Height 27.31 05/23/2015 10:30 AM CDT Body Mass Index documented in this encounter Patient Instructions * Patient Instructions* Lima Fernandez CMA - 03/27/2019 3:38 PM AIR CREW OFFICER Thank you for choosing [facility]. You may receive a survey in the mail. Please provide comments to let us know how we can improve our patient care. Instructions for your care: Patient will follow up in 2 weeks for wound care New wound care orders given Kj Hammond DPM roll tender Division of Vascular Surgery and Endovascular Therapy If you have any questions, please feel free to call us at: CREW OFFICER documented in this encounter Progress Notes * Paz Knott FNPC - 03/27/2019 3:15 PM AIR CREW OFFICER Subjective: Addi Tompkins Aldo Arias is a 58 y.o. male that presents today for follow-up evaluation and management of stage 3 left heel wound. Patient is awaiting endova scular procedure for revascularization with Dr. Wilson 04/07/2019. he admits to to being compliant with his local wound care consisting of Vashe we t-to-dry dressings daily and limiting his weightbearing. He denies any addition al complaints today. No results found for: HGBA1C. No new complaints. he denies any nausea, vomiting, fever, or chills. Past Medical History: Diagnosis Date Chronic renal failure Diabetic retinopathy Hypertension Other and unspecified angina pectoris Type II or unspecified type diabetes mellitus without mention of complicatio n, not stated as uncontrolled Past Surgical History: Procedure Laterality Date HX FOOT AMPUTATION THROUGH METATARSAL 2000 HX LASER EYE SURGERY both eyes for diabetic retinopathy HX TONSILLECTOMY HX TUNNELED DIALYSIS CATHETER Jan, 2011 Surgical history also includes debridement down to the bone, left heel (01/18/19 - [facility]), US catheter in left PHOTOVOLTAIC POWER SYSTEMS ENGINEER and left PT artery with diagnostic LLE angiog nii left peroneal artery, balloon angioplasty (01/20/19 - [facility]), debridemen t down to bone of left heel, with application of Hyalomatrix (01/24/19 - [facility]. Objective: BP 152/65 | Pulse 66 | Wt 207 lb (93.9 kg) | BMI 27.31 kg/m General: Patient is alert, responsive, NAD Lower Ext: Derm: Hyperemia sub left hallux, Wound site left heel presents measuring 7. 0 x 10.5 cm (previously 6.0 x 5.0 cm). The wound site presents with mixed granul ation and fibrous tissue.There is not any evidence of purulence, malodor, probe to bone, tracking or tunneling noted. The wound site is not improving. There is +2 pitting edema and generalized erythema to the left foot. Vasc: Pedal pulses are palpable bilateral lower extremity. CFT < 3 sec bilateral. Neuro: Protective threshold is not intact bilateral. Mus/Ske: Muscle strength 5/5 bilateral. Range of motion within normal limit s. Psych: Mood normal, affect normal, concentration normal Assessment and Plan: Encounter Diagnosis and Orders ICD-10-CM 1. Type 2 diabetes mellitus with diabetic neuropathic arthropathy, with long-ter m current use of insulin (HCCode) E11.610 1. Encouraged patient to examine feet daily, including inspecting the area between the toes. Keep feet clean and dry. Pay attention to broken skin, ulcers, blisters (do not pop), areas of increased warmth or redness, or changes in callus formation; let your health care provider know if you notice if any of these changes or have any concerns. If you are trini ble to reach your feet or see them completely, even with a mirror, ask another p erson (such as a spouse or other family member) to help you. Pay attention to te mperatures and surfaces, including walking barefoot. Choose socks and shoes care fully. Encouraged cotton socks and diabetic shoes; snug but not too tight, with a wide toebox. Discussed glycemic control, with education on goal A1C < 7.0 and regular follow up appointments with tax appraiser. Education on smoking cessation/do not initiate smoking. Follow up with Dr. Hammond to trim your toen ails straight across, and avoid cutting them down the sides or too short. You ca n use a nail file to remove any sharp edges to prevent the toenail from digging into your skin. Never cut your nails/cuticles or allow anyone else to do so. Z79.4 2. Skin ulcer of left heel with fat layer exposed (HCCode) L97.422 1. The left h eel wound was cleaned with VASHE, sterile saline, dressed with saline-soaked gau ze, 2 4x4 sterile gauze, webrill, and felicity bandage in a mildly compressive manner . Instructed to continue dressing changes as performed in clinic. Wound care ord ers given to patient in hand. Patient and family understood. Addressed questions and concerns. 2. Patient awaiting vascular intervention to proceed with future podiatric proce dure. Findings were discussed with the patient and all questions were answered. F/u 2 weeks ALBERTO Canela [facility] Division of Vascular Surgery and Podiatry [facility] Podiatric Attending Attestation I was present for and performed the evaluation and treatment and agree with the plan and personally examined the patient with ALBERTO Canela. I have reviewed the notes, assessments, and/or procedures performed by ALBERTO Umaña, I concur with her documentation of Mr. Addi Tompkins Aldo Arias . Kj Hammond DPM CREW OFFICER documented in this encounter Plan of Treatment Care Team Description Date Type Specialty Roland Wilson MD [address] [place] [address] 04/07/2019 Appointment Vascular Surgery 04/24/2019 Ancillary Vascular Surgery Procedure Roland Wilson MD [address] [place] [address] 04/24/2019 Office Visit Vascular Surgery Health Maintenance Due Date Last Done Comments TETANUS SHOT (ADULT) 1977 ANNUAL DIABETIC FOOT EXAM 1980 ANNUAL DIABETIC 1980 RETINOPATHY SCREENING BMI FOLLOW UP PLAN 1980 HEPATITIS C SCREENING 1980 HIV SCREENING 1980 MEDICARE AWV (Initial) 04/30/2011 FLU VACCINE > 6 MONTHS 09/29/2018 COLON CANCER SCREENIN05/31/2024 05/31/2014 COLONOSCOPY documented as of this encounter Results Not on filedocumented in this encounter Visit Diagnoses Diagnosis Type 2 diabetes mellitus with diabetic neuropathic arthropathy, with long-term current use of insulin (HCCode) - Primary Skin ulcer of left heel with fat layer exposed (HCCode) documented in this encounter Insurance Type Payer Benefit Subscriber ID Effective Phone Address Plan / Dates Group Medicare MEDICARE MEDICARE xxxxxxxxxxx 2018- [address] Present [id number] [place] [address] Medicaid MEDICAID [employer] xxxxxxxxx 2019- [address] - Present [id number] [place] [address] [phone] documented as of this encounter"
--- OUTSIDE RECORDS SUMMARY | 2019-10-12 20:18 | XMS REPORT | Summary of Care ---
Author Author [facility] Organization [facility] Address Unknown Phone Unavailable Care Team Providers Care New Product Trainer Name Role Phone System, Pcp Not In PCP Reason for Visit * Reason Comments Follow Up wound care Encounter Details Care Team Description Date Type Department Kj Hammond, SHA [address] [place] [address] Follow Up (wound care) 05/11/2019 Office Visit [facility] Vascular Surgery [address] 6th [address], [address] [place] [address] Allergies No Known Allergiesdocumented as of this encounter (statuses as of 05/12/2019) Medications End Date Status Medication Sig Dispensed [...] as of this encounter (statuses as of 05/12/2019) Active Problems Problem Noted Date PAD (peripheral [...] as of this encounter (statuses as of 05/12/2019) Social History Date Tobacco Use Types Packs/Day [...] Signs Reading Time Taken Comments Vital Sign 160/110 05/11/2019 1:27 PM CDT Blood Pressure 106 05/11/2019 1:27 PM CDT Pulse - - Temperature - - Respiratory Rate - - Oxygen Saturation - - Inhaled Oxygen Concentration 93.9 kg (207 lb) 05/11/2019 1:27 PM CDT Weight 185.4 cm (6' 1") 05/11/2019 1:27 PM CDT Height 27.31 05/11/2019 1:27 PM CDT Body Mass Index documented in this encounter Patient Instructions * Patient Instructions* Armida Kenny CMA - 05/11/2019 2:11 PM CDT [facility] Date: Wednesday05/23/19 Time: 7:30am with a check in of 5:30am (tentative time) Procedure: excisional debridement of left calcaneal possible celcanectomy w appl ication of graft Pre-Testin05/16/19 @ 1:30pm Pre-op Instructions for [facility] On the day of the procedure, arrive at [facility] at [address] [facility], [place] [address] at 5:30am. Please take PURPLE elevator to the 2n d floor. They will direct give you directions on how to get to the operating ro om. 1. Call [facility] [phone] to pre-register for your procedure or by visitin g [email or web address] before pre-admission testing. 2. Your pre-operative interview and testing should be completed 3 to 7 days prio r to your surgery. This is done in the [facility], [address] [place] [address] , 12th floor, [address]. The interview and testing hours available are Wednesday through Wednesday from 8:00 to 5:00. Please call [phone] to schedule an appo intment. You need to bring an insurance card, photo id, a list with you of all your current medications, dosages, and number of times taken per day, and your p [employer] card to receive a parking voucher. 3. Do not eat or drink anything after midnight on the day of your surgery. 4. Discontinue Coumadin 4 days prior to your procedure, unless otherwise instruc riri by your physician. Please continue your plavix and aspirin. 5. If you are a diabetic, do not take your oral medication the morning before yo ur procedure. If you are on Insulin, please notify your prescribing physician t hat you will be fasting for > 8 hours and ask what adjustments should be made to your insulin regimen. 6. Only blood pressure medications can be taken with a sip of water the morning of your procedure all other medications can be taken after your procedure. 7. Do not exercise after surgery until seen by the surgeon. 8. If you are having outpatient surgery, be prepared to stay in recovery at [facility] t 2-3 hours and have someone to drive you home. In some cases, you may need to b e admitted to observation status overnight. 9. Please call [phone] to schedule an appointment with your physician for 2 weeks following your procedure. Please schedule your follow up appointment now to avoid delay in seeing the physician. 10. If you have any questions, please call [phone]. documented in this encounter Progress Notes * Vadim Ball NP - 05/11/2019 1:15 PM CDT Division of Vascular Surgery & Endovascular Therapy Reynaldo Crawley Department of Surgery [facility], [place], [place] HISTORY & PHYSICAL EXAM FOR OUTPATIENT VISIT FOR EVALUATION OF PERIPHERAL ARTERIAL DISEASE DATE OF VISIT: May 11, 2019 PATIENT NAME: Addi Carlson : 1960; AGE: 58 y.o.; Sex:M PHONE NUMBER: ; (Work); ; SS#: [id number] PHYSICIAN: Mars Ball NP PRIMARY CARE / REFERRING PHYSICIAN: No ref. provider found / System, Pcp Not In / No address on file / REASON FOR EVALUATION / CHIEF COMPLAINT: Evaluation and treatment of left lower extremity tissue loss with ischemic wound HISTORY OF PRESENT ILLNESS: Addi Carlson is a 58 y.o. male patient w [facility] PMH of DM, HTN and ESRD (HD MWF). The patient has had a history of L calcane al diabetic wound and has been following up podiatry and has also had prior rajesh scularization with Dr. Wilson. The last intervention was a left leg angiogram a nd stenting procedure which was performed on April 07 at the [facility]. The patient has been undergoing daily dressing changes to his left heel with dakins wet to dry. The patient is here f or follow up with Dr. Hammond in preparation for wound debridement. PAST SURGICAL HISTORY: The patient's has a past surgical history that includes hx tunneled dialysis catheter (Jan, 2011); HX Foot amputation through metatarsal (2000); HX Tonsillectomy; and hx laser eye surgery. PAST MEDICAL HISTORY: The patient has a past medical history of Chronic renal f ailure, Diabetic retinopathy, Hypertension, Other and unspecified angina pectori s, and Type II or unspecified type diabetes mellitus without mention of complica tion, not stated as uncontrolled. FAMILY HISTORY: The patient's family history includes Breast Cancer in his mater nal aunt; Diabetes in his father; Hypertension in his mother; Other Medical Prob lems in his paternal grandmother; Stroke in his father. CURRENT MEDICATIONS: Outpatient Medications Prior to Visit Medication Sig Dispense Refill amlodipine Take 5 mg by mouth two times daily. carvedilol Take 25 mg by mouth 2 times daily (with meals). sodium hypochlorite Apply to affected area daily 500 mL 1 gabapentin Take 100 mg by mouth 3 times daily. hydrALAZINE Take 100 mg by mouth 3 times daily. insulin regular Inject into the skin 3 times daily (before meals). lisinopril Take 40 mg by mouth daily. Multiple Vitamin (MULTI VITAMIN DAILY OR) Take by mouth. Na Sulfate-K Sulfate-Mg Sulf [SUPREP] Take as directed. 1 Bottle 0 Sevelamer Carbonate Take 800 mg by mouth 3 times daily. No facility-administered medications prior to visit. No Known Allergies SOCIAL HISTORY: reports that he quit smoking about 9 years ago. He has never us ed smokeless tobacco. He reports that he does not drink alcohol or use drugs. FAMILY HISTORY: family history includes Breast Cancer in his maternal aunt; Diab etes in his father; Hypertension in his mother; Other Medical Problems in his pa ternal grandmother; Stroke in his father. REVIEW OF SYSTEMS: General: negative for - night sweats, sleep disturbance, weight gain or weight l oss Psychological: negative for - anxiety, memory difficulties, mood swings or sleep disturbances Respiratory: no cough, shortness of breath, wheezing, dyspnea, sputum production , or hemoptysis. Cardiovascular: no chest pain, orthopnea, heart murmur, or dyspnea on exertion Gastrointestinal: no abdominal pain, change in bowel habits, jaundice, constipat ion, or black or bloody stools Genito-Urinary: no dysuria, trouble voiding, or hematuria Musculoskeletal: negative for - joint stiffness, joint swelling or bone pain Neurological: negative for - behavioral changes, headaches, impaired coordinatio n, loss of balance, tingling sensation, dizziness, seizure, memory loss or weakn ess Dermatological: negative for - mole changes, nail changes, skin lesion changes, or skin discoloration. Hematological and Lymphatic: negative for - bleeding problems, blood clots, brui sing, fatigue, swollen lymph nodes or history of anemia. Endocrine: negative for thyroid disease, heat or cold intolerance, polyuria, or polydipsia Psychiatric: negative for depression, sleep disturbance, suicidal ideation, anxi ety disorder, or history of hallucinations VITAL SIGNS: BP (!) 160/110 (BP Location: right arm, Patient Position: Sitting) | Pulse 106 | Ht 6' 1" (1.854 m) | Wt 207 lb (93.9 kg) | BMI 27.31 kg/m PHYSICAL EXAM: Constitutional: Well nourished, no signs of distress HENT: Non icteric sclerae, oropharynx clear. Normocephalic and atraumatic. Cran ial nerves II-XI are grossly intact. Pupils are equally reactive to light. Ext raocular motor intact. Lymphadenopathy: He has no cervical, supraclavicular or axillary adenopathy, Cardiovascular: Normal rate, regular rhythm and normal heart sounds. No murmurs , rubs or gallops Pulmonary/Chest: Breath sounds normal. No respiratory distress. No adventitious sounds. Abdominal: Soft. No abdominal distension or tenderness. No masses palpated and n o hepatomegaly. No organomegaly. No abdominal pulsatile mass noted. Musculoskeletal: Normal range of motion. No evidence of arthritis. Extremities: No edema, cyanosis or clubbing. L calcaneal wound noted approximate measurements: left calcaneal presents measuring 7.0 x 8.0 cm (previously 7.0 x 10.5 cm). The wound site presents with mixed granulation and fibrous tissue Neurological: He is alert and oriented. No muscle weakness and normal gait. VASCULAR: Palpable femoral pulses were present bilaterally. Dopplerable bilater al popliteal arterial signals. Dopplerable signals were present in bilateral funmi salis pedis and posterior tibial artery arteries. Diagnostic Evaluation: The patient had diagnostic imaging studies done 04/24/2019 : ASSESSMENT & PLAN: 58 y.o. male patient with L calcaneal wound who will undergo excisional wound d ebridement with possible calcanectomy and possible grafting with Dr. Hammond. The patient will follow up with vascular clinic in 3 months since his last visit wit h A26 and wound evaluation post operatively. JENNY Olivares-C Department of Surgery Division of Vascular Surgery * Paz Knott FNPC - 05/11/2019 1:15 PM CDT Subjective: Addi Carlson is a 58 y.o. male that presents today for follow-up eval uation and management of stage 3 calcaneal wound. Patient is post op LLE angiogr am, LLE venogram, left PT artery/vein stent, and left PT vein stent balloon thelma oplasty (04/07/2019 - Wilson). Patient also presents with sub 3rd met head call us and painful, onychomycotic, incurvated, inflamed, elongated, dystrophic, and discolored nails #1-9 bilaterally. he admits to to being compliant with his local wound care consisting of Dakin's wet to dry dressing M, W, F by Home Health. He denies any additional complaint s today. No results found for: HGBA1C. No [...] (01/18/19 - Lepow), US catheter in left ROOFER ASSISTANT and left PT artery with diagnostic LLE angiog nii left peroneal artery, balloon angioplasty (01/20/19 - Pallister), debridemen t down to bone of left heel, with application of Hyalomatrix (01/24/19 - Lepow), LLE angiogram, LLE venogram, left PT artery/vein stent, and left PT vein stent balloon angioplasty (04/07/2019 - Steve). Objective: BP (!) 160/110 (BP Location: right arm, Patient Position: Sitting) | Pulse 106 | Ht 6' 1" (1.854 m) | Wt 207 lb (93.9 kg) | BMI 27.31 kg/m General: Patient is alert, responsive, NAD Lower Ext: Derm: Wound site left calcaneal presents measuring 7.0 x 8.0 cm (previously 7.0 x 10.5 cm). The wound site presents with mixed granulation and fibrous tiss ue. There is not any evidence of edema, erythema, purulence, malodor, probe to bone, tracking or tunneling noted. The wound site is improving. There is ecchymo sis noted to left forefoot. +2 nonpitting edema, left foot. Painful, onychomycot ic, incurvated, inflamed, elongated, dystrophic, and discolored nails #1-9 bilat erally. Sub 3rd met head callus. Vasc: Pedal pulses are palpable bilateral lower extremity. CFT < 3 sec bilateral. Neuro: Protective threshold is not intact bilateral. Mus/Ske: Muscle strength 5/5 bilateral. Range of motion within normal limit s. Bilateral foot digital contractures. Psych: Mood normal, affect normal, concentration normal Diabetic Foot Exam: Performed Inspection: Wound site left calcaneal presents measuring 7.0 x 8.0 cm (previou sly 7.0 x 10.5 cm). The wound site presents with mixed granulation and fibrous t issue. There is not any evidence of edema, erythema, purulence, malodor, pro be to bone, tracking or tunneling noted. The wound site is improving. There is e cchymosis noted to left forefoot. +2 nonpitting edema, left foot. Painful, on ychomycotic, incurvated, inflamed, elongated, dystrophic, and discolored nails # 1-9 bilaterally. Sub 3rd met head callus. Pulses: Left posterior tibial 1, Left dorsalis pedis 1, Right posterior tibi al 1 and Right dorsalis pedis 1 Monofilament Exam: Diminished sensation to bilateral LE on monofilament exam. Assessment and Plan: Encounter Diagnosis and Orders ICD-10-CM 1. PAD (peripheral artery disease) (HCCode) I73.9 1. Patient is scheduled with A [address] Wilson 07/25/2019. 2. Type 2 diabetes mellitus with diabetic neuropathic arthropathy, with long-ter m current use of insulin (HCCode) E11.610 1. DM education given and reinforced a s previous OV. Patient verbalized understanding. Z79.4 3. Skin ulcer of left heel with fat layer exposed (HCCode) L97.422 1. The left h eel wound was cleaned with VASHE, sterile saline, dressed with VASHE-soaked gauz e, 4x4 sterile gauze, ABD pad, webrill, and felicity bandage. Instructed to continue daily. 2. Excisional debridement with possible calcanectomy and graft scheduled for . Cleared today by VADIM, Vascular Surgery. Findings were discussed with the patient and all questions were answered. ALBERTO Canela [facility] Division of Vascular Surgery and Podiatry T documented in this encounter Plan of Treatment Care Team Description Date Type Specialty Kj Hammond DPM [address] [place] [address] 05/22/2019 Appointment Vascular Surgery Kj Hammond DPM [address] [place] [address] [phone] 06/01/2019 Office Visit Vascular Surgery 07/25/2019 Ancillary Vascular Surgery Procedure Health Maintenance Due Date Last Done Comments TETANUS SHOT (ADULT) 1977 ANNUAL DIABETIC FOOT EXAM 1980 ANNUAL DIABETIC 1980 RETINOPATHY SCREENING HEPATITIS C SCREENING 1980 HIV SCREENING 1980 MEDICARE AWV (Initial) 04/30/2011 FLU VACCINE > 6 MONTHS 09/29/2018 BMI FOLLOW UP PLAN 04/24/2020 04/24/2019 COLON CANCER SCREENIN05/31/2024 05/31/2014 COLONOSCOPY documented as of this encounter Results Not on filedocumented in this encounter Visit Diagnoses Diagnosis PAD (peripheral artery disease) (HCCode ) - Primary Unspecified disorders of arteries and a rterioles Type 2 diabetes mellitus with diabetic neuropathic arthropathy, with long-term current use of insulin (HCCode) Skin ulcer of left heel with fat layer exposed (HCCode) documented in this encounter Insurance Type Payer Benefit Subscriber ID Effective Phone Address Plan / Dates Group Medicare MEDICARE MEDICARE xxxxxxxxxxx 2018- [address] Present [id number] [place] [address] Medicaid MEDICAID [employer] xxxxxxxxx 2019- [address] - Present [id number] [place] [address] documented as of this encounter
--- OUTSIDE RECORDS SUMMARY | 2019-10-12 20:18 | XMS REPORT | Summary of Care ---
Author Author [facility] Organization [facility] Address Unknown Phone Unavailable Care Team Providers Care Heat Curer Name Role Phone System, Pcp Not In PCP Reason for Referral * Radiology Services (Routine) Referred By Contact Referred To Contact Status Reason Specialty Diagnoses / Procedures Roland Wilson MD [address] [facility] [address] [place] [address] [facility] Imaging [address] [place] [address] [address] [place] [address] Pending Radiology Diagnoses PAD (peripheral artery disease) (HCCode) P rocedures US ARTERIAL LEG LEFT Reason for Visit * Reason Comments Follow Up ultrasound results Encounter Details Care Team Description Date Type Department Roland Wilson MD [address] [facility] [address] [facility] [address] [place] [address] Follow Up (ultrasound results) 09/04/2019 Office Visit [facility] Vascular Surgery [address] [facility] 6th [address], [address] [place] [address] Allergies No Known Allergiesdocumented as of this encounter (statuses as of 09/06/2019) Medications End Date Status Medication Sig Dispensed [...] as of this encounter (statuses as of 09/06/2019) Active Problems Problem Noted Date S/P split thickness skin graft 08/29/2019 PAD (peripheral artery disease) (HCCode) 04/28/2019 Non-healing [...] as of this encounter (statuses as of 09/06/2019) Social History Date Tobacco Use Types Packs/Day Years Used Quit: 05/04/2010 Former Smoker Smokeless Tobacco: Never Used Drinks/Week oz/Week Comments Alcohol Use No Sex Assigned at Date Recorded Not on file Industry Job Start Date Occupation Not on file Not on file Not on file Travel End Travel History Travel Start No recent travel history available. Date Recorded COVID-19 Exposure Response 09/04/2019 1:52 PM CDT In the last month, have you been in contact with No / Unsure someone who was confirmed or suspected to have Coronavirus / COVID-19? documented as of this encounter Last Filed Vital Signs Reading Time Taken Comments Vital Sign 121/64 09/04/2019 2:01 PM CDT Blood Pressure 76 09/04/2019 2:01 PM CDT Pulse - - Temperature - - Respiratory Rate - - Oxygen Saturation - - Inhaled Oxygen Concentration 88.5 kg (195 lb) 09/04/2019 2:01 PM CDT Weight 185.4 cm (6' 1") 09/04/2019 2:01 PM CDT Height 25.73 09/04/2019 2:01 PM CDT Body Mass Index documented in this encounter Patient Instructions * Patient Instructions* Lima Fernandez CMA - 09/04/2019 2:51 PM CDT Thank you for choosing [facility]. You may receive a survey in the mail. Please provide comments to let us know how we can improve our patient care. Instructions for your care: Patient will follow up in 3 months Arterial ultrasound of left leg will be done at that time Roland Chaudhary MD ball thread machine tender Division of Vascular Surgery and Endovascular Therapy If you have any questions, please feel free to call us at: documented in this encounter Progress Notes * Roland Wilson MD - 09/04/2019 2:00 PM CDT [facility] [address] [facility] [address] [facility] [address], [place]. [address] Office: [phone] DATE OF VISIT: 09/04/19 PATIENT NAME: Addi Carlson Jr. : 1960 PCP / REFERRING PHYSICIAN: System, Pcp Not In / No address on file The patient presents today for a Vascular Surgery Established Patient Visit. The patient is status post Left foot STSG (08/08/19 - Steve/Stephany). The patient pre sents to clinic today for wound evaluation. The patient states the left thigh do nor site pain has essential resolved. He has been caring for the area as instruc riri at his last visit. The STSG is being managed by home health therapy under th e care of Dr. Kj Hammond. The patient denies any drainage, foul odor, increase swelling or pain, or fever. VITAL SIGNS: BP 121/64 | Pulse 76 | Ht 6' 1" (1.854 m) | Wt 195 lb (88.5 kg) | BMI 25.73 kg/m PHYSICAL EXAM: Constitutional: Well nourished, no signs of distress VASCULAR: Palpable femoral pulses were present bilaterally with Dopplerable pop liteal, dorsalis pedis and posterior tibial artery signals. Left thigh STSG dono r site dessicated with xeroform in place as eschar. Left plantar foot STSG well incorporated with surrounding hyperkeratosis. Assessment & Plan: S/p L foot STSG - The STSG is doing well. The patient will continue left foot wo und management with Dr. Hammond. Regarding the left thigh, the patient was instruc riri to continue current course: as the STSG lifts he will cut away the edge. Fol low up in 3 months with A26 (left). Roland Wilson MD documented in this encounter Plan of Treatment Care Team Description Date Type Specialty Kj Hammond DPM [address] [place] [address] 09/14/2019 Office Visit Vascular Surgery 12/11/2019 Ancillary Vascular Surgery Procedure Roland Wilson MD [address] [place] [address] 12/11/2019 Office Visit Vascular Surgery Order Schedule Name Type Priority Associated Diag noses 1 Occurrences starting 09/04/2019 until 04/06/2020 US ARTERIAL LEG LEFT Imaging Routine PAD (kameron pheral artery disease) (HCCode) Health Maintenance Due Date Last Done Comments [...] Unspecified disorders of arteries and a rterioles S/P split thickness skin graft documented in this encounter Insurance Type Payer Benefit Subscriber ID Effective Phone Address Plan / Dates Group Medicare MEDICARE MEDICARE xxxxxxxxxxx 2018- [address] Present [id number] [place] [address] Medicaid MEDICAID [employer] xxxxxxxxx 2019-P [id number] [place] [address] [phone] documented as of this encounter
--- OUTSIDE RECORDS SUMMARY | 2019-10-12 20:18 | XMS REPORT | Summary of Care ---
Author Author [facility] Organization [facility] Address Unknown Phone Unavailable Care Team Providers Care Clinical Trials Specialist Name Role Phone System, Pcp Not In PCP Reason for Visit * Reason Comments Follow Up Encounter Details Care Team Description Date Type Department Álvaro Lopes, ALEJANDRO [address] [facility] [address] [place] [address] Follow Up 08/18/2019 Office Visit [facility] Vascular Surgery [address] [facility] [address], [address] [place] [address] Allergies No Known Allergiesdocumented as of this encounter (statuses as of 08/29/2019) Medications End Date Status Medication Sig Dispensed [...] as of this encounter (statuses as of 08/29/2019) Active Problems Problem Noted Date S/P split [...] as of this encounter (statuses as of 08/29/2019) Social History Date Tobacco Use Types Packs/Day Years Used Quit: 05/04/2010 Former Smoker Smokeless Tobacco: Never Used Drinks/Week oz/Week Comments Alcohol Use No Sex Assigned at Date Recorded Not on file Industry Job Start Date Occupation Not on file Not on file Not on file Travel End Travel History Travel Start No recent travel history available. Date Recorded COVID-19 Exposure Response 08/28/2019 2:21 PM CDT In the last month, have you been in contact with No / Unsure someone who was confirmed or suspected to have Coronavirus / COVID-19? documented as of this encounter Last Filed Vital Signs Reading Time Taken Comments Vital Sign 136/68 08/18/2019 1:49 PM CDT Blood Pressure 71 08/18/2019 1:49 PM CDT Pulse - - Temperature - - Respiratory Rate - - Oxygen Saturation - - Inhaled Oxygen Concentration 88.5 kg (195 lb) 08/18/2019 1:49 PM CDT Weight 185.4 cm (6' 1") 08/18/2019 1:49 PM CDT Height 25.73 08/18/2019 1:49 PM CDT Body Mass Index documented in this encounter Progress Notes * Álvaro Lopes NP - 08/18/2019 1:30 PM CDT [facility] [address] [place] [address], [place]. [address] Office: [phone] DATE OF VISIT: 08/18/19 PATIENT NAME: Addi Carlson : 1960 PCP / REFERRING PHYSICIAN: System, Pcp Not In / No address on file The patient presents today for a Vascular Surgery Established Patient Visit. The patient is status post Left foot STSG (08/08/19 - Steve/Stephany). The patient pre sents to clinic today with concerns of the left thigh donor site leaking. The pa tient states dressing has been leaking and he's unsure how to care for the site. He, also, has pain to the area. VITAL SIGNS: BP 136/68 (BP Location: right arm, Patient Position: Sitting, Cuff Size: regular) | Pulse 71 | Ht 6' 1" (1.854 m) | Wt 195 lb (88.5 kg) | BMI 2 5.73 kg/m PHYSICAL EXAM: Constitutional: Well nourished, no signs of distress VASCULAR: Palpable femoral pulses were present bilaterally with Dopplerable pop liteal, dorsalis pedis and posterior tibial artery signals. Right thigh STSG don or site with saturated ABD pad and tegaderm . Assessment & Plan: S/p L foot STSG - The donor site dressing was removed and replaced. The patient was educated on redressing the area. Follow up in 2 weeks. Álvaro Lopes NP documented in this encounter Plan of Treatment Care Team Description Date Type Specialty Roland Wilson MD [address] [facility] [address] [place] [address] [phone] 09/04/2019 Office Visit Vascular Surgery Kj Hammond DPM [address] [place] [address] [phone] 09/14/2019 Office Visit Vascular Surgery Health Maintenance Due [...] filedocumented in this encounter Visit Diagnoses Diagnosis S/P split thickness skin graft - Primar y documented in this encounter Insurance Type Payer Benefit Subscriber ID Effective Phone Address Plan / Dates Group Medicare MEDICARE MEDICARE xxxxxxxxxxx 2018- [address] Present [id number] [place] [address] Medicaid MEDICAID [id number] xxxxxxxxx 2019-P [address] [place] [id number] [place] [address] PPO GENERIC PAYOR GENERIC xxxxxxxx 2019-P PPO - resent GENERIC PAYOR Indemnity COVID19 COVID19 xxxxxxxx 2019- [facility] [place] [phone] [id number] ([address]) [place], [place] [phone] documented as of this encounter
--- OUTSIDE RECORDS SUMMARY | 2019-10-12 20:18 | XMS REPORT | Continuity of Care Document ---
Author Author [facility] t Organization [facility] Address [address] [place] [address] Phone Unavailable Care Team Providers Care Slitter Creaser Slotter Helper Name Role Phone CRISTBOAL JOEL, ANDI PCP Stacey JOEL, L Jose Alejandro Attphys Hiren JOEL, Placido Attphys Erin JOEL, Neha Attphys Leroy JOEL, Giovanny Alfonso Attphys [phone] PLACIDO MARADIAGA Attphys Unavailable Steve JOEL, Natan Watkins Attphys [phone] Moses ALLEN, Miladys Rea Attphys [phone] Stephany DPLeslie, Olive Underwood Attphys Radha JOEL, Janice Merlos Attphys Skye JOEL, Elsie Powers Attphys Chelsey JOEL, Go Ruth Attphys OLIVE RAMIREZ Attphys Unavailable Moses ALLEN, Álvaro Attphys Stephany DPLeslie, Olive Underwood Attphys Steve JOEL, Natan Watkins Attphys [phone] Brian AA, Сергей Miguel Ángel Attphys NATAN WILSON Attphys Unavailable [facility], Kailey Bonilla Attphys [phone] KESHIA SEGUNDO Attphys Unavailable Ratna JOEL, Keshia Martinez Attphys Dahlia JOEL, Cathi Sánchez Attphys [phone] Filiberto JOEL, Lindsay Jesi Attphys Bryce JOEL, Katelynn Attphys Jw JOEL, Jian Guevara Attphys JENNIFER, KULDEEP-SUNG Attphys Unavailable Jennifer JOEL, Kuldeep-Sung Attphys Graham JOEL, Sharad Jose Attphys DO, Stevens Norah Attphys Ev JOEL, Brunollneftali Attphys Harvey JOEL, Manjeet Trijuanito Attphys Jocelyn JOEL, Justus Rut Attphys [phone] Laura Read MD, Damon Jurado Attphys [phone] HARVEY, Nola. TRIEN Attphys Unavailable VALERIE, ZAYNAB PÉREZ Attphys Unavailable Valerie JOEL, Zaynab Pérez Attphys Malia JOEL, Sangeetha Boswell Attphys Shania JOEL, Lynette Attphys [phone] Avery JOEL, Brooks Tavera Attphys Casey JOEL, Keshia Gates Attphys [phone] Moses JOEL, Maday Lin Attphys [phone] Modesta HO Attphys Unavailable CRANE, SOUHEIL Attphys Unavailable ORANDI LAU Attphys Unavailable GIOVANNY GARIBAY Admphys Unavailable Janice BAUTISTA Admphys Unavailable STEVE NATAN WATKINS Admphys Unavailable SUTARIA, S JESI Admphys Unavailable JAFARSHARAD JOSE Admphys Unavailable GADICHERLA, MURALINATH RUT Admphys Unavailable JEGAPRAGASAN, MITHULAN Admphys Unavailable Payers Payer Name Policy Type Policy Number Effective Date Expiration Date S mai MEDICAREMEDICARE A BxxxxxxxxxxxMedicare xxxxxxxxxxx [facility] MEDICAID - MEDICAID [place] [id number] xxMedicaid Non-Contracted xxxxxxxxx [facility] REVIEWCDC REVIEWxxxxxxxx[place] [address] x xxxxxxx [facility] [id number] 2013 00:00:00 [facility] Medicare A & B [id number] 2011 00:00:00 [facility] Problems Condition Name Condition Details Condition Category Status Onset Date Resolution Date Last Treatment Date Treating Clinician Comments Source ESRD (end stage renal disease) ESRD (end stage renal disease) Disea se Active 2019-10-06 00:00:00 [facility] Subacute osteomyelitis of left ankle Subacute osteomyelitis of left ankle Disease Active 2019-08-14 00:00:00 [facility] Heel ulcer Heel ulcer Disease Active 2019-08-08 00:00:00 [facility] Wound, open, foot Wound, open, foot Disease Active 2019-08-08 00:00:00 [facility] Non healing left heel wound Non healing left heel wound Disease Active 2019-08-08 00:00:00 [facility] PAD (peripheral artery disease) PAD (peripheral artery disease) Dis ease Active 2019-04-07 00:00:00 [facility] Ulcer of heel, left, with unspecified severity Ulcer o f heel, left, with unspecified severity Disease Active 2019-03-08 00:00:00 [facility] Hyperkalemia Hyperkalemia Disease Active 2019-02-20 00:00:00 [facility] Symptomatic bradycardia Symptomatic bradycardia Disease Active 2019-02-20 00:00:00 [facility] Gastrointestinal hemorrhage, unspecified gastrointesti nal hemorrhage type Gastrointestinal hemorrhage, unspecified gastrointestinal hemorrhage type Disease Active 2019-02-20 00:00:00 Overv iew: Added automatically from request for surgery [id number] [facility] Type II or unspecified type diabetes rama litus with peripheral circulatory disorders, not stated as uncontrolled(250.70) Type II or unspecified type diabetes mellitus with peripheral circulatory disorders, not stated as uncontrolled(250.70) Disease Active 2019-01-20 00:00:00 [facility] Type 2 diabetes mellitus with left diabetic foot infec tion Type 2 diabetes mellitus with left diabetic foot infection Disease Active 2019-01-20 00:00:00 [facility] Non-healing wound of left heel Non-healing wound of left heel Disea se Active 2019-01-20 00:00:00 [facility] Anemia due to chronic kidney disease Anemia due to chronic k idney disease Disease Active 2019-01-20 00:00:00 [facility] Osteoarthritis of left foot Osteoarthritis of left foot Disease Active 2019-01-16 00:00:00 [facility] HLD (hyperlipidemia) HLD (hyperlipidemia) Disease Active 00:00:00 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 [facility] Pre-transplant evaluation for chronic kidney disease P re-transplant evaluation for chronic kidney disease Disease Active 2014-06-26 00:00:00 Last Assessment & Plan: Chart reviewed, including cardiac cath with runoff. There is no evidence of vascular disease that would preclude transplant. From a surgical perspective, he is a good candidate and OK to actively list. [facility] Diabetes mellitus Diabetes mellitus Disease Active 2014-06-26 00:00:00 Last Assessment & Plan: Continue tight glucose control with current insulin therapy. [facility] Hypertension Hypertension Disease Active 2014-06-26 00:00:00 Last Assessment & Plan: Continue antihypertensives as prescribed. [facility] Chronic diastolic heart failure, NYHA class 1 Chronic diastolic heart failure, NYHA class 1 Disease Active 2011-04-23 00:00:00 [facility] Obstructive sleep apnea Obstructive sleep apnea Disease Active 2011-02-25 00:00:00 [facility] Abnormal Liver Function Test A bnormal Liver Function Test Active 03/25/2012 [facility] Problem Active 2012-03-25 2 3:17:42 [facility] Type 2 Diabetes Mellitus Type 2 Diabetes Mellitus Active 03/25/2012 [facility] Active 2012-03-25 23:17: 42 [facility] End Stage Renal Disease End Stage Renal Disease Active 03/25/2012 on dialysis M-W-F [facility] Problem Active 2 23:17:42 [facility] Hypertension Hype rtension Active 03/25/2012 [facility] Problem Active 2012-03-25 23:17:42 [facility] Otitis Externa Otit is Externa Active 03/25/2012 [facility] Active 2012-03-25 23:17:42 [facility] Joint Pain, Localized In The Hip Joint Pain, Localized In The Hip Active 03/25/2012 [facility] Problem Active 2012-03-25 23:17:42 [facility] ESRD on hemodialysis ESRD on hemodialysis Disease Active [facility] History of Past Illness Condition Name Condition Details Condition Category Status Onset Date Resolution Date Last Treatment Date Treating Clinician Comments Source Symptomatic anemia Symptomatic anemia Disease Resolved 5 00:00:00 2019-10-07 00:00:00 2019-10-07 04:44:31 [facility] Allergies, Adverse Reactions, Alerts Allergy Name Allergy Type Status Severity Reaction(s) Onset Date Inacti ve Date Treating Clinician Comments Source No Known Drug Allergies No Known Drug Allergies Active [facility] Family History Family Member Diagnosis Comments Start Date Stop Date Source Natural father Diabetes [facility] Natural father Stroke [facility] Maternal grandmother Diabetes [facility] Maternal grandmother Kidney failure [facility] Natural mother Hypertension [facility] Unknown Family Member Family History 2012-01-13 18:33:51 2 18:33:51 [facility] Social History Social Habit Start Date Stop Date Quantity Comments Source Sex Assigned At [facility] Tobacco Comment 2014-03-06 00:00:00 2014-03-06 00:00:00 Quit 2009 [facility] Social History 2012-03-25 23:17:42 2012-03-25 23:17:42 [facility] Smoking Status Start Date Stop Date Source Former smoker 2019-08-08 00:00:00 2019-08-08 00:00:00 [facility] Medications Ordered Medication Name Filled Medication Name Start Date Stop Da te Current Medication? Ordering Clinician Indication Dosage Frequency Signature (SIG) Comments Components Source lisinopriL (PRINIVIL,ZESTRIL) 10 MG tablet 2019-10-07 00:00:00 Yes 10mg QD Take 1 tablet (10 mg total) by mouth sherie ly Take as directed by your vp of global marketing. [facility] carvediloL (COREG) 25 MG tablet 2019-10-07 00:00:00 23:59:00 Yes 25mg Q.5D Take 1 tablet (25 mg total) by mouth 2 (two) times daily for 90 days Takes as your vp of global marketing recommends. C [facility] VELPHORO 500 mg Chew 2019-09-20 00:00:00 Yes CRUSH OR CHEW AND SWALLOW 3 TABLETS 3 TIMES A DAY WITH MEALS [facility] lisinopriL (PRINIVIL,ZESTRIL) 10 MG tablet 09-18 00:00:00 2019-10-07 00:00:00 No 10mg QD Take 10 mg by mouth daily. [facility] atorvastatin (LIPITOR) 40 MG tablet 2019-08-14 00:00:0 0 2019-11-12 23:59:00 Yes 40mg QD Take 1 tablet (40 mg total) by mouth nig htly for 90 days. [facility] lanthanum (FOSRENOL) 1000 MG chewable tablet 00:00:00 2019-11-12 23:59:00 Yes 1000mg Take 1 tablet (1,000 mg total) by mouth 2 (two) times daily with breakfast and dinner for 90 days. [facility] carvediloL (COREG) 25 MG tablet 2019-08-14 00:00:00 00:00:00 No 37.5mg Q.5D Take 1.5 tablets (37 .5 mg total) by mouth 2 (two) times daily for [address] [facility] amLODIPine (NORVASC) 10 MG tablet 2019-08-14 00:00:00 2019 00:00:00 No 10mg QD Take 1 tablet (10 mg total) by mouth warren ry evening. [facility] polyethylene glycol (GLYCOLAX) 17 gram/dose powder 2019-08-14 00:00:00 2019-09-13 23:59:00 No 17g QD Take 17 g by mouth d aily for 30 days. [facility] amoxicillin-clavulanate (AUGMENTIN) 500-125 mg per tablet 2019-08-14 00:00:00 2019-08-24 23:59:00 No 1{tbl} QD Take 1 tablet by mouth daily for 10 days Take DURING or AFTER dialysis on dialysis days.. [facility] oxyCODONE-acetaminophen (PERCOCET) 5-325 mg per tablet 2019-08-14 00:00:00 2019-08-24 23:59:00 No 1{tbl} Take 1 tablet by mouth every 4 (four) hours as needed for up to 10 days. Max Daily Amount: 6 tablets [facility] amoxicillin-clavulanate (AUGMENTIN) 500-125 mg per tablet 2019-08-13 00:00:00 2019-08-14 00:00:00 No 1{tbl} QD Take 1 tablet by mouth daily for 10 days Take DURING or AFTER dialysis on dialysis days.. [facility] amoxicillin-clavulanate (AUGMENTIN) 500-125 mg per tablet 2019-08-13 00:00:00 2019-08-13 00:00:00 No 1{tbl} Q.5D Take 1 tablet by mouth 2 (two) times daily for [address] [facility] carvedilol (COREG) 25 MG tablet 2019-08-11 07:40:49 00:00:00 No 25mg Q.[id number] Take 25 mg by mouth 3 (three) times daily . [facility] amLODIPine (NORVASC) 5 MG tablet 2019-08-11 07:40:49 2019-07 00:00:00 No 10mg Q.5D Take 10 mg by mouth 2 (two) times daily . [facility] diphenhydrAMINE (BENADRYL) 25 mg tablet 07:40:49 2019-08-11 00:00:00 No 50mg Take 50 mg by mouth every night as needed for Sleep . [facility] sucroferric oxyhydroxide (VELPHORO ORAL) 2019-07 07:40:2019-08-11 00:00:00 No 1000mg Take 1,000 mg by mouth 3 (three) times daily with meals. [facility] traMADoL (ULTRAM) 50 mg tablet 2019-08-11 07:40:2019-08-11 00 :00:00 No 50mg Take 50 mg by mouth every 6 (six) hours as needed for Pain. [facility] insulin glargine (LANTUS U-100 INSULIN) 100 unit/mL injectio n 2019-08-11 00:00:00 Yes 5U QD Inject 5 U nits subcutaneously every morning If morning blood sugar is less than 110 mg/dL, give yourself 3 units of lantus instead.. [facility] amLODIPine (NORVASC) 10 MG tablet 2019-08-11 00:00:00 2019 00:00:00 No 10mg QD Take 1 tablet (10 mg total) by mouth warren ry evening. [facility] carvediloL (COREG) 25 MG tablet 2019-08-11 00:00:00 00:00:00 No 37.5mg Q.5D Take 1.5 tablets (37 .5 mg total) by mouth 2 (two) times daily for [address] [facility] lanthanum (FOSRENOL) 1000 MG chewable tablet 00:00:00 2019-08-14 00:00:00 No 1000mg Take 1 tablet (1,000 mg total) by mouth 2 (two) times daily with breakfast and dinner for 90 days. [facility] atorvastatin (LIPITOR) 40 MG tablet 2019-08-11 00:00:0 0 2019-08-14 00:00:00 No 40mg QD Take 1 tablet (40 mg total) by mouth nig htly for 90 days. [facility] polyethylene glycol (GLYCOLAX) 17 gram/dose powder 2019-08-11 00:00:00 2019-08-14 00:00:00 No 17g QD Take 17 g by mouth d aily for 30 days. [facility] amoxicillin-clavulanate (AUGMENTIN) 875-125 mg per tablet 2019-04-08 00:00:00 2019-04-18 23:59:00 No 1{tbl} Take 1 tablet by mouth every 12 (twelve) hours for [address] [facility] acetaminophen (TYLENOL) 500 MG tablet 2019-04-08 00:00 :00 2019-04-18 23:59:00 No 500mg Take 1 tablet ( 500 mg total) by mouth every 6 (six) hours as needed for Pain for up to 10 days. [facility] traMADol (ULTRAM) 50 mg tablet 2019-04-08 00:00:00 2019-04-18 23 :59:00 No 50mg Take 1 tablet (50 mg total) by mouth every 6 (six) hours as needed for Pain for up to 10 days. Max Daily Amount: 200 mg [facility] traMADol (ULTRAM) 50 mg tablet 2019-04-08 00:00:00 2019-04-08 00 :00:00 No 50mg Take 1 tablet (50 mg total) by mouth every 6 (six) hours as needed for Pain for up to 10 days. Max Daily Amount: 200 mg [facility] amoxicillin-clavulanate (AUGMENTIN) 500-125 mg per tablet 2019-03-13 00:00:00 2019-03-20 23:59:00 No 1{tbl} QD Take 1 tablet by mouth daily for 7 days Take after dialysis on dialysis days.. [facility] HYDROcodone-acetaminophen (NORCO 10-325) 10-325 mg per table t 2019-03-13 00:00:00 2019-03-18 23:59:00 No 1{tbl} Take 1 tablet by mouth every 6 (six) hours as needed for Pain for up to 5 days. Max Daily Amount: 4 tablets [facility] cholecalciferol, vitamin D3, 5,000 unit Tab 2019 00:52:02 2019-03-08 00:00:00 No 5000U QD Take 5,000 Units by mouth daily . [facility] insulin lispro (HUMALOG) 100 unit/mL injection 2 00:00:00 2019-08-11 00:00:00 No 0U Inject 0-8 Uni ts subcutaneously 3 (three) times daily before meals. [facility] insulin glargine (LANTUS U-100 INSULIN) 100 unit/mL injectio n 2019-02-09 00:00:00 2019-08-11 00:00:00 No 10U QD Inject 10 Units subcutaneously nightly Use as directed. [facility] oxyCODONE-acetaminophen (PERCOCET) 10-325 mg per tablet 2019-02-07 00:00:00 2019-02-09 00:00:00 No 1{tbl} Take 1 tablet by mouth every 4 (four) hours as needed (severe pain) for up to 10 days. Max Daily Amount: 6 tablets [facility] lisinopril (PRINIVIL,ZESTRIL) 20 MG tablet 01-26 00:00:00 2019-01-25 00:00:00 No 20mg QD Take 1 tablet (20 mg total) by mouth daily. [facility] lisinopril (PRINIVIL,ZESTRIL) 20 MG tablet 01-26 00:00:00 2019-01-25 00:00:00 No 40mg QD Take 2 tablets (40 mg total) by mouth daily. [facility] hydrALAZINE (APRESOLINE) 100 MG tablet 2018-12-31 7 16:52:41 2019-01-25 00:00:00 No 150mg Q.[id number] Ta ke 150 mg by mouth 3 (three) times daily . [facility] insulin regular (HUMULIN R,NOVOLIN R) 100 unit/mL injection 2019-01-25 13:00:11 2019-01-25 00:00:00 No Inject subcutaneously 3 (three) times daily before meals. Use as directed [facility] insulin glargine (LANTUS) 100 unit/mL injection 2019-01-25 13:00:11 2019-01-25 00:00:00 No 10U QD Inject 10 Units subc utaneously nightly Use as directed . [facility] epo[facility] gil-epbx (RETACRIT) 3,000 unit/mL Soln injection 2019-01-25 00:00:00 Yes anemia in chronic kidney disease 6000U Inject 2 mLs (6,000 Units total) subcutaneously 3 (three) times a week at bedtime MON/WED/FRI. [facility] senna-docusate (SENOKOT S) 8.6-50 mg per tablet 2019-01-25 00:00:00 2020-01-25 23:59:00 No 2{tbl} QD Take 2 tablets by mouth nightly . [facility] cloNIDine HCl (CATAPRES) 0.1 MG tablet 2018-12-31 7 00:00:00 2019-08-11 00:00:00 No .1mg Take 1 tablet (0.1 mg total) by mouth every 8 (eight) hours. [facility] hydrALAZINE (APRESOLINE) 100 MG tablet 2018-12-31 7 00:00:00 2019-08-11 00:00:00 No 100mg Q.[id number] Ta ke 1 tablet (100 mg total) by mouth 3 (three) times daily. [facility] oxyCODONE-acetaminophen (PERCOCET) 5-325 mg per tablet 2019-01-25 00:00:00 2019-03-13 00:00:00 No 1{tbl} Take 1 tablet by mouth every 4 (four) hours as needed (moderate pain). Max Daily Amount: 6 tablets [facility] lisinopril (PRINIVIL,ZESTRIL) 40 MG tablet 01-25 00:00:00 2019-03-08 00:00:00 No 40mg Q.5D Take 1 tablet (40 mg total) by mouth 2 (two) times daily. [facility] bisacodyl (DULCOLAX) 5 mg EC tablet 2019-01-25 00:00:0 0 2019-02-24 23:59:00 No 5mg Take 1 tablet ( 5 mg total) by mouth daily as needed for Constipation for up to [address] [facility] bisacodyl (DULCOLAX) 10 mg suppository 2018-12-31 7 00:00:00 2019-02-07 00:00:[address] 1 suppos itory (10 mg total) rectally daily as needed for up to [address] [facility] oxyCODONE-acetaminophen (PERCOCET) 10-325 mg per tablet 2019-01-25 00:00:00 2019-02-07 00:00:00 No 1{tbl} Take 1 tablet by mouth every 4 (four) hours as needed (severe pain) for up to 10 days. Max Daily Amount: 6 tablets [facility] polyethylene glycol (GLYCOLAX) 17 gram packet 20 17-01-27 00:00:00 2019-01-28 23:59:00 No 17g Q.5D Take 17 g by mouth 2 (two) time s daily for 3 days. [facility] piperacillin-tazobactam (ZOSYN) MBP 2.25 g in 100 mL NS 2019-01-25 00:00:00 2019-01-28 23:59:00 No 2.25g Injec t 2.25 g intravenously every 8 (eight) hours for [address] [facility] piperacillin-tazobactam (ZOSYN) MBP 2.25 g in 100 mL NS 2019-01-25 00:00:00 2019-01-25 00:00:00 No 2.25g Injec t 2.25 g intravenously every 8 (eight) hours for [address] [facility] oxyCODONE-acetaminophen (PERCOCET) 5-325 mg per tablet 2019-01-25 00:00:00 2019-01-25 00:00:00 No 1{tbl} Take 1 tablet by mouth every 4 (four) hours as needed. Max Daily Amount: 6 tablets [facility] gabapentin (NEURONTIN) 100 MG capsule 2019-01-17 09:58:42 Y es 100mg Take 100 mg by mouth 3 (three) times daily as needed neuropathy. [facility] aspirin 81 MG chewable tablet 2019-01-17 09:42:41 Yes 81mg QD Take 81 mg by mouth daily. [facility] sevelamer (RENVELA) 800 mg tablet 2019-01-17 09:37:13 2018 00:00:00 No 800mg Take 800 mg by m outh 3 (three) times daily with meals. 3 tabs w/ meals [facility] insulin NPH 100 unit/mL (3 mL) InPn 2019-01-17 09:35:3 4 2019-01-17 00:00:00 No 5U QD Inject 5 Units subcutaneously nightly. [facility] lisinopril (PRINIVIL,ZESTRIL) 20 MG tablet 01-17 01:09:35 2019-01-17 00:00:00 No 20mg Q.[id number] Ta ke 20 mg by mouth 3 (three) times daily . [facility] multivitamin per tablet 2019-01-17 01:09:35 2019-01-17 00:00:00 No 1{tbl} QD Take 1 tablet by mouth daily. I [facility] nortriptyline (PAMELOR) 25 MG capsule 2019-01-17 01:09 :35 2019-01-17 00:00:00 No 25mg QD Take 25 mg by mouth nightly. [facility] nitroglycerin (NITRODUR) 0.4 mg/hr patch 2018-11 00:00:00 2019-08-11 00:00:00 No .4{patch} Place 0.4 patc hes onto the skin every 12 (twelve) hours. [facility] LINZESS 145 mcg Cap 2018-12-15 00:00:00 2019-03-08 00:00:00 No 145ug QD Take 145 mcg by mouth daily. [facility] clopidogrel (PLAVIX) 75 mg tablet 2018-12-12 00:00:00 Yes 75mg QD Take 75 mg by mouth daily. [facility] Clindamycin Hcl 300 Mg Capsule Clindamycin Hcl 300 Mg Capsul e 2018-11-24 00:00:00 Yes Ambica Sandhir Do 300 Every 6 Hours [facility] Nitroglycerin (Nitroglycerin Patch) 1 Each Patch.td24 Nitroglycerin (Nitroglycerin Patch) 1 Each Patch.td24 2018-11-24 00:00:00 Yes Ambica Sandhir Do .4 Daily [facility] Tramadol Hcl (Ultram) 50 Mg Tablet Tramadol Hcl (Ultram) 50 Mg Tablet 2018-11-24 00:00:00 Yes Ambpradeep Lundbergr Do 50 Ev chaparrita 6 Hours as needed for Mild Pain (1-3) Or Fever>100.8 [facility] ([facility]ODUR) 0.4 mg/hr patch 2018-10 00:00:00 2019-01-17 00:00:00 No .4mg/h Apply 0.4 mg/h r topically as needed For dressing changes. [facility] nitroglycerin (NITRODUR) 0.1 mg/hr patch 2018-10 00:00:00 2019-01-17 00:00:00 No .1{patch} QD Place 0.1 patches onto the sk in daily. [facility] cloNIDine HCl (CATAPRES) 0.2 MG tablet 2018-10-30 9 00:00:00 2019-02-23 00:00:00 No .2mg Take 0.2 mg by mouth as needed ( SBP >200) . [facility] lactulose (CHRONULAC) 10 gram/15 mL solution 201 06-03-06 00:00:00 2019-08-11 00:00:00 No 30mL Take 30 mLs by mouth as needed For constipation. [facility] Doxazosin Mesylate 4 MG Oral Tablet 2012-03-25 23:17:42 Yes (Active) [facility] TraMADol HCl 50 MG Oral Tablet 2012-03-25 23:17:42 Yes (Active) [facility] Ciprodex 0.3-0.1 % Otic Suspension 2012-03-25 06:00:00 Yes ; Start Date: 03/25/2012; End Date: (Active) [facility] CloNIDine HCl 0.1 MG Oral Tablet 2011-10-30 05:00:00 Yes ; Start Date: 10/30/2011 (Active) [facility] Asencioa nn cloNIDine HCl (CATAPRES) 0.1 MG tablet 2011-10-02 00:00:00 2019-01-17 00:00:00 No .1mg Take 0.1 mg by mouth as needed for Hypertension (Specify SBP/DBP in PRN comments) SBP >200. [facility] Precision Xtra Blood Glucose In Vitro Strip 2011-07-07 05:00:00 Yes ; Start Date: 07/07/2011; End Date: (Active) [facility] Minoxidil 10 MG Oral Tablet 2011-07-07 05:00:00 Yes ; Start Date: 07/07/2011; End Date: (Active) [facility] Carvedilol 25 MG Oral Tablet 2011-06-22 05:00:00 Yes ; Start Date: 06/22/2011 (Active) [facility] Isosorbide Mononitrate ER 60 MG Oral Tablet Extended Release 24 Hour 2011-06-22 05:00:00 Yes ; Start Date: 05/31 (Active) [facility] Renagel 800 MG Oral Tablet 2011-06-22 05:00:00 Yes ; Start Date: 06/22/2011 (Active) [facility] Vitamin D (Ergocalciferol) 74396 UNIT Oral Capsule 2011-05 05:00:00 Yes ; Start Date: 06/22/2011 (Active) [facility] Furosemide 40 MG Oral Tablet 2011-06-22 05:00:00 Yes ; Start Date: 06/22/2011 (Active) [facility] Lisinopril 40 MG Oral Tablet 2011-06-22 05:00:00 Yes ; Start Date: 06/22/2011 (Active) [facility] furosemide (LASIX) 80 MG tablet 2011-06-22 00:00:00 00:00:00 No 80mg QD Take 80 mg by mouth daily. [facility] NovoLIN R 100 UNIT/ML Injection Solution Yes ; Start Date: ; End Date: (Active) [facility] Amlodipine Besylate 5 Mg Tablet Amlodipine Besylate 5 Mg Tablet Yes 5 Twice A Day [facility] Aspirin (Aspir 81) 81 Mg Tablet. Aspirin (Aspir 81) 81 Mg Tablet.dr Lorenzo 81 Daily [facility] Carvedilol 12.5 Mg Tablet Carvedilol 12.5 Mg Tablet Yes 25 Twice A Day [facility] Clonidine Hcl 0.2 Mg Tablet Clonidine Hcl 0.2 Mg Tablet Yes .2 As Needed as needed for High Blood Pressure [facility] Hydralazine Hcl 25 Mg Tab Hydralazine Hcl 25 Mg Tab Yes 150 Three Times A Day [facility] Insulin Glargine (Lantus 3ML Pen) 100 Units/1 Ml Inj I nsulin Glargine (Lantus 3ML Pen) 100 Units/1 Ml Inj Yes 10 Bedtime [facility] Insulin Regular, Human (Humulin R) 100 Unit/1 Ml Vial Insulin Regular, Human (Humulin R) 100 Unit/1 Ml Vial Yes Before Meals And At Bedtime [facility] Multivitamin (Multi-Vitamin Daily) 1 Each Tablet Multi vitamin (Multi-Vitamin Daily) 1 Each Tablet Yes 1 Daily [facility] Insulin Human Nph (Humulin N) 100 Units/Ml Ml, 5 Unit Sub-Q Insulin Human Nph (Humulin N) 100 Units/Ml Ml, 5 Unit Sub-Q 2018-09-13 00:00:00 No 5 Bedtime [facility] Lisinopril 10 Mg Tablet, 20 Mg Oral Lisinopril 10 Mg Tablet, 20 Mg Oral 2018-09-13 00:00:00 No 20 Daily [facility] Sevelamer Hcl (Renvela) 800 Mg Tab, 800 Mg Oral Sevela keara Hcl (Renvela) 800 Mg Tab, 800 Mg Oral 2018-09-13 00:00:00 No 800 Three T imes A Day [facility] Vital Signs Vital Name Observation Time Observation Value Comments Source Systolic blood pressure 2019-10-07 15:00:00 175 mm[Hg] [facility] Diastolic blood pressure 2019-10-07 15:00:00 75 mm[Hg] [facility] Heart rate 2019-10-07 15:00:00 72 /min [facility] Body temperature 2019-10-07 15:00:00 35.89 Cathy [facility] Respiratory rate 2019-10-07 15:00:00 18 /min [facility] Oxygen saturation in Arterial blood by Pulse oximetry 10-06 15:00:00 100 /[facility] Measured 2019-10-07 13:45:00 84.8 kg [facility] BMI 2019-10-07 13:45:00 24.67 kg/m2 [facility] Body height 2019-10-07 07:00:00 185.4 cm [facility] Procedures Procedure Date / Time Performed Performing Clinician [facility] e REPORT OF PROCEDURE - ENDOSCOPY SCAN 2019-10-10 11:41:04 Pro vider, Default Scanning [facility] TRANSFUSION SERVICE REPORT - SCAN 2019-10-09 18:00:13 Provid er, Default Scanning [facility] PREPARE LEUKO-REDUCED RBC 2019-10-08 23:54:00 Carla Garibay [facility] TRANSFUSION SERVICE REPORT - SCAN 2019-10-08 18:00:14 Provid er, Default Scanning [facility] TRANSFUSION SERVICE REPORT - SCAN 2019-10-07 18:03:14 Provid er, Default Scanning [facility] POCT-GLUCOSE METER 2019-10-07 15:41:00 Neha Khan [facility] TROPONIN I 2019-10-07 15:37:00 Neha Khan [facility] HEMODIALYSIS INPATIENT 2019-10-07 13:45:00 Alexi Bauer I [facility] HEMOGLOBIN AND HEMATOCRIT 2019-10-07 13:34:00 Maríaadriana Neha Kristopher [facility] POCT-GLUCOSE METER 2019-10-07 13:27:00 Erin Rancho [facility] TRANSFUSE LEUKO-REDUCED RED BLOOD CELLS 2019-10-07 12:31:50 Carla Garibay [facility] TRANSFUSE LEUKO-REDUCED RED BLOOD CELLS 2019-10-07 10:06:46 Kinsey colmenares [facility] POCT-GLUCOSE METER 2019-10-07 07:24:00 Carla Garibay [facility] TROPONIN I 2019-10-07 06:25:00 Hiren [facility] BASIC METABOLIC PANEL (7) 2019-10-07 06:25:00 Carla Garibay [facility] PHOSPHORUS 2019-10-07 06:25:00 Carla Garibay [facility] MAGNESIUM 2019-10-07 06:25:00 Carla Garibay [facility] HEMOGLOBIN AND HEMATOCRIT 2019-10-07 05:19:00 Hiren [facility] CBC (HEMOGRAM ONLY) 2019-10-07 05:19:00 Carla Garibay [facility] TRANSFUSE LEUKO-REDUCED RED BLOOD CELLS 2019-10-07 01:34:08 Kinsey colmenares [facility] SARS-COV2/RT-PCR ([facility]) 2019-10-06 23:37:00 Carla Montes [facility] TROPONIN I 2019-10-06 23:37:00 Hiren [facility] IRON, TIBC, % SAT. (WITHOUT FERRITIN) 2019-10-06 23:37:00 Carla Eckert [facility] FERRITIN 2019-10-06 23:37:00 Carla Garibay [facility] XR CHEST 1 VIEW PORTABLE/BEDSIDE 2019-10-06 19:37:[facility] ECG 12-LEAD 2019-10-06 19:34:45 [facility] BASIC METABOLIC PANEL (7) 2019-10-06 19:22:00 [facility] TROPONIN I 2019-10-06 19:22:00 [facility] TYPE AND SCREEN, AUTOMATED 2019-10-06 19:22:00 [facility] CBC W/PLT COUNT & AUTO DIFFERENTIAL 2019-10-06 19:22:00 Ricardo mathur [facility] ED ECG INTERPRETATION 2019-10-06 19:07:22 [facility] TRANSFUSION SERVICE REPORT - SCAN 2019-08-16 18:01:31 Provid er, Default Scanning [facility] PREPARE LEUKO-REDUCED RBC 2019-08-14 19:34:00 Carisa Lehman [facility] PREPARE RBC 2019-08-14 19:34:00 Gaurang Bautista [facility] POCT-GLUCOSE METER 2019-08-14 16:39:00 Priya Cheung [facility] POCT-GLUCOSE METER 2019-08-14 11:27:00 Priya Cheung [facility] POCT-GLUCOSE METER 2019-08-14 07:46:00 Priya Cheung [facility] BASIC METABOLIC PANEL (7) 2019-08-14 05:13:00 Carisa Lehman [facility] PHOSPHORUS 2019-08-14 05:13:00 Carisa Lehman [facility] CBC W/PLT COUNT & AUTO DIFFERENTIAL 2019-08-14 05:13:00 Garcia Lehman [facility] POCT-GLUCOSE METER 2019-08-13 23:27:00 Gaurang Bautista [facility] POCT-GLUCOSE METER 2019-08-13 21:27:00 Gaurang Bautista [facility] TRANSFUSION SERVICE REPORT - SCAN 2019-08-13 18:00:28 Provid er, Default Scanning [facility] POCT-GLUCOSE METER 2019-08-13 16:37:00 Gaurang Bautista [facility] POCT-GLUCOSE METER 2019-08-13 11:42:00 Gaurang Bautista [facility] POCT-GLUCOSE METER 2019-08-13 08:20:00 Gaurang Bautista [facility] POCT-GLUCOSE METER 2019-08-13 05:44:00 Gaurang Bautista [facility] BASIC METABOLIC PANEL (7) 2019-08-13 05:11:00 Carisa Lehman [facility] PHOSPHORUS 2019-08-13 05:11:00 Carisa Lehman [facility] CBC W/PLT COUNT & AUTO DIFFERENTIAL 2019-08-13 05:11:00 Garcia Lehman [facility] POCT-GLUCOSE METER 2019-08-12 23:28:00 Gaurang Bautista [facility] TRANSFUSION SERVICE REPORT - SCAN 2019-08-12 18:02:54 Provid er, Default Scanning [facility] POCT-GLUCOSE METER 2019-08-12 15:43:00 Gaurang Bautista [facility] POCT-GLUCOSE METER 2019-08-12 11:18:00 Gaurang Bautista [facility] POCT-GLUCOSE METER 2019-08-12 08:02:00 Gaurang Bautista [facility] BASIC METABOLIC PANEL (7) 2019-08-12 05:37:00 Carisa Lehman [facility] MAGNESIUM 2019-08-12 05:37:00 Carisa Lehman [facility] PHOSPHORUS 2019-08-12 05:37:00 Carisa Lehman [facility] CBC W/PLT COUNT & AUTO DIFFERENTIAL 2019-08-12 05:37:00 Garcia Lehman [facility] POCT-GLUCOSE METER 2019-08-12 01:28:00 Gaurang Bautista [facility] HEMODIALYSIS INPATIENT 2019-08-11 23:37:07 Claudy Witt [facility] POCT-GLUCOSE METER 2019-08-11 22:37:00 Gaurang Bautista [facility] TRANSFUSE LEUKO-REDUCED RED BLOOD CELLS 2019-08-11 21:58:47 Carisa Lehman [facility] POCT-GLUCOSE METER 2019-08-11 19:42:00 Gaurang Bautista [facility] TYPE AND SCREEN, AUTOMATED 2019-08-11 17:37:00 Carisa Lehman [facility] POCT-GLUCOSE METER 2019-08-11 16:06:00 Gaurang Bautista [facility] POCT-GLUCOSE METER 2019-08-11 12:01:00 Gaurang Bautista [facility] HEMOGLOBIN AND HEMATOCRIT 2019-08-11 08:35:00 Carisa Lehman [facility] POCT-GLUCOSE METER 2019-08-11 08:08:00 Gaurang Bautista [facility] BASIC METABOLIC PANEL (7) 2019-08-11 04:53:00 Carisa Lehman [facility] MAGNESIUM 2019-08-11 04:53:00 Carisa Lehman [facility] PHOSPHORUS 2019-08-11 04:53:00 Carisa Lehman [facility] CBC W/PLT COUNT & AUTO DIFFERENTIAL 2019-08-11 04:53:00 [facility] PO[facility]SE [facility] 2019-08-10 20:09:00 Gaurang Bautista [facility] POCT-GLUCOSE METER 2019-08-10 16:55:00 Gaurang Bautista [facility] XR FOOT LEFT 3 VIEW 2019-08-10 15:41:[address] [facility] S [facility] POCT-GLUCOSE METER 2019-08-10 12:10:00 Gaurang Bautista [facility] POCT-GLUCOSE METER 2019-08-10 07:50:00 Gaurang Bautista [facility] BASIC METABOLIC PANEL (7) 2019-08-10 05:33:00 Carisa Lehman [facility] MAGNESIUM 2019-08-10 05:33:00 Carisa Lehman [facility] PHOSPHORUS 2019-08-10 05:33:00 Carisa Lehman [facility] VITAMIN B12 AND FOLATE 2019-08-10 05:33:00 Carisa Lehman [facility] IRON, TIBC, % SAT. (WITHOUT FERRITIN) 2019-08-10 05:33:00 Carisa Lehman [facility] FERRITIN 2019-08-10 05:33:00 Carisa Lehman [facility] CBC W/PLT COUNT & AUTO DIFFERENTIAL 2019-08-10 05:33:00 Garcia Lehman [facility] POCT-GLUCOSE METER 2019 21:02:00 Gaurang Bautista [facility] HEMODIALYSIS INPATIENT 2019 18:04:24 Claudy Witt [facility] POCT-GLUCOSE METER 2019 16:16:00 Gaurang Bautista [facility] HEPATITIS B SURFACE ANTIGEN 2019 16:14:00 Claudy Witt [facility] POCT-GLUCOSE METER 2019 12:31:00 Gaurang Bautista [facility] POCT-GLUCOSE METER 2019 08:36:00 Gaurang Bautista [facility] HEMOGLOBIN A1C 2019 04:57:00 Carisa Lehman [facility] BASIC METABOLIC PANEL (7) 2019 04:57:00 Carisa Lehman [facility] MAGNESIUM 2019 04:57:00 Carisa Lehman [facility] PHOSPHORUS 2019 04:57:00 Carisa Lehman [facility] HEPATIC FUNCTION PANEL 2019 04:57:00 Carisa Lehman [facility] CBC W/PLT COUNT & AUTO DIFFERENTIAL 2019 04:57:00 Garcia Lehman [facility] POCT-GLUCOSE METER 2019-08-08 20:32:00 Gaurang Bautitsa [facility] POCT-GLUCOSE METER 2019-08-08 17:22:00 Gaurang Bautista [facility] POCT-GLUCOSE METER 2019-08-08 13:58:00 Gaurang Bautista [facility] POCT-GLUCOSE METER 2019-08-08 11:43:00 Kj Ramirez [facility] DEBRIDEMENT/I&D,WOUND EXTREMITY LOWER 2019-08-08 09:35:00 Kj Ramirez [facility] SKIN GRAFT,SKIN SUBSTITUTE 2019-08-08 09:35:00 Kj Ramirez [facility] PLACEMENT,WOUND VAC 2019-08-08 09:35:00 Kj Ramirez [facility] SKIN GRAFT,SPLIT THICKNESS-LOWER EXTREMITY 2019-08-08 09:35: 00 Roland Wilson [facility] BASIC METABOLIC PANEL (7) 2019-08-08 08:22:00 Vega Mcwilliams [facility] LIPID PANEL 2019-08-08 08:22:00 Carisa Lehman [facility] POCT-GLUCOSE METER 2019-08-08 07:44:00 Kj Ramirez [facility] SARS-COV2/RT-PCR ([facility] & REF LABS) 2019-08-03 09:55:00 Álvaro Mendenhall [facility] POTASSIUM 2019-08-03 09:55:00 Jerome Crews [facility] HEMOGLOBIN 2019-08-03 09:55:00 Jerome Crews juan [facility] XR FOOT LEFT 3 VIEW 2019-07-20 10:45:[address] [facility] S [facility] RHYTHM STRIP - SCAN 2019-04-11 15:50:08 [facility] 2019-04-10 13:42:08 Provider, Default Scanni [facility] CARDIAC CATH REPORT - SCAN 2019-04-10 13:42:04 Provider, Default Scanning [facility] TRANSFUSION SERVICE REPORT - SCAN 2019-04-08 17:52:12 Provid er, Default Scanning [facility] POCT-GLUCOSE METER 2019-04-08 11:23:00 Steve [facility] POCT-GLUCOSE METER 2019-04-08 07:15:00 Steve [facility] BASIC METABOLIC PANEL (7) 2019-04-08 05:36:00 Nadine Ramirez [facility] CBC (HEMOGRAM ONLY) 2019-04-08 05:36:00 Nadine Ramirez [facility] POCT-GLUCOSE METER 2019-04-07 22:49:00 Steve Roland [facility] POCT-GLUCOSE METER 2019-04-07 16:15:00 Steve Roland [facility] POCT-ACT 2019-04-07 11:06:00 Steve Roland [facility] POCT-ACT 2019-04-07 10:50:00 Steve Roland [facility] POCT-ACT 2019-04-07 10:11:00 Roland Wilson [facility] POCT-ACT 2019-04-07 09:49:00 Roland Wilsonerico [facility] POCT-ACT 2019-04-07 09:34:00 [facility]GIOS / AORTOGRAM 2019-04-07 07:30:00 Filemon Wilson [facility] BASIC METABOLIC PANEL (7) 2019-04-07 07:02:00 Roland Wilson [facility] TYPE AND SCREEN, AUTOMATED 2019-04-07 07:02:00 Nadine Ramirez [facility] CBC W/PLT COUNT & AUTO DIFFERENTIAL 2019-04-07 07:02:00 Nick kwonRoland [facility] ECG 12-LEAD 2019-04-07 06:54:12 Unknown, Hl7 Doctor [facility] RHYTHM STRIP - SCAN 2019-03-15 11:40:56 Provider, Default Scanni ng [facility] POCT-GLUCOSE METER 2019-03-13 17:22:00 Paola Escalera [facility] POCT-GLUCOSE METER 2019-03-13 12:46:00 Paola Escalera Jian [facility] BASIC METABOLIC PANEL (7) 2019-03-13 08:45:00 Khadra Womack [facility] PHOSPHORUS 2019-03-13 08:45:00 Khadra Womack [facility] HEMOGLOBIN AND HEMATOCRIT 2019-03-13 07:27:00 Isabel Royal [facility] POCT-GLUCOSE METER 2019-03-12 21:53:00 Bryce, [facility] TRANSFUSION SERVICE REPORT - SCAN 2019-03-12 18:00:48 Provid er, Default Scanning [facility] POCT-GLUCOSE METER 2019-03-12 17:46:00 Bryce, [facility] POCT-GLUCOSE METER 2019-03-12 11:56:00 Bryce, [facility] POCT-GLUCOSE METER 2019-03-12 08:28:00 Bryce, [facility] HEMOGLOBIN AND HEMATOCRIT 2019-03-12 04:03:00 Isabel Royal [facility] BASIC METABOLIC PANEL (7) 2019-03-12 04:02:00 SutariaKayleighJesi S C [facility] POCT-GLUCOSE METER 2019-03-11 22:24:00 Bryce, [facility] TRANSFUSION SERVICE REPORT - SCAN 2019-03-11 18:01:27 Provid er, Default Scanning [facility] HEMOGLOBIN AND HEMATOCRIT 2019-03-11 17:54:00 Isabel Royal [facility] POCT-GLUCOSE METER 2019-03-11 17:35:00 Bryce, [facility] POCT-GLUCOSE METER 2019-03-11 13:09:00 [facility] VEIN MAPPING LEGS BILATERAL 2019-03-11 10:25:00 Nadine Ramirez [facility] POCT-GLUCOSE METER 2019-03-11 07:31:00 [facility] PREPARE RBC 2019-03-11 06:56:00 Juan Segundo [facility] BASIC METABOLIC PANEL (7) 2019-03-11 04:16:00 Sutaria, Jesi S [facility] HEMOGLOBIN AND HEMATOCRIT 2019-03-11 04:16:00 Isabel Royal [facility] PREPARE RBC 2019-03-10 23:54:00 Sutaria, Jesi S [facility] POCT-GLUCOSE METER 2019-03-10 21:35:00 Sutaria, [facility] S [facility] HEMOGLOBIN AND HEMATOCRIT 2019-03-10 18:20:00 Isabel Royal [facility] TRANSFUSION SERVICE REPORT - SCAN 2019-03-10 18:01:37 Provid er, Default Scanning [facility] POCT-GLUCOSE METER 2019-03-10 17:09:00 Sutaria, [facility] POCT-GLUCOSE METER 2019-03-10 13:35:00 [facility] BASIC METABOLIC PANEL (7) 2019-03-10 11:33:00 Jesi De Los Santos [facility] HEMODIALYSIS INPATIENT 2019-03-10 09:19:38 Shanta Khadra Monique [facility] BLOOD CULTURE 2019-03-10 08:33:00 [facility] HEMO[facility]EMATOCRIT 2019-03-10 08:32:00 Isabel Royal [facility] IRON, TIBC, % SAT. (WITHOUT FERRITIN) 2019-03-10 08:32:00 Franky pittman Khadra [facility] FERRITIN 2019-03-10 08:32:00 [facility] W/[facility]T COUNT & AUTO DIFFERENTIAL 2019-03-10 08:32:00 [facility] PO[facility]SE METER 2019-03-10 07:33:00 [facility] HEMOGLOBIN AND HEMATOCRIT 2019-03-09 23:29:00 Isabel Royal [facility] POCT-GLUCOSE METER 2019-03-09 23:16:00 [facility] TRANSFUSE LEUKO-REDUCED RED BLOOD CELLS 2019-03-09 20:47:49 Chela dumont [facility] POCT-GLUCOSE METER 2019-03-09 19:51:00 [facility] ARTERIAL DOPPLER LEGS BILATERAL 2019-03-09 18:51:00 [facility] TRANSFUSION SERVICE REPORT - SCAN 2019-03-09 18:01:42 Provid er, Default Scanning [facility] PROTHROMBIN TIME/INR 2019-03-09 14:56:00 [facility] POCT-GLUCOSE METER 2019-03-09 13:14:00 Sutaria, Jesi S [facility] BLOOD CULTURE 2019-03-09 11:53:00 Kayleigh De Los Santosush Lindsay [facility] BASIC METABOLIC PANEL (7) 2019-03-09 11:53:00 Jesi De Los Santos [facility] CBC W/PLT COUNT & AUTO DIFFERENTIAL 2019-03-09 11:53:00 Filiberto [facility] Lindsay [facility] POCT-GLUCOSE METER 2019-03-09 07:49:00 Filiberto [facility] Lindsay [facility] HEPATITIS B SURFACE ANTIGEN 2019-03-09 05:45:00 Binh Womack Monique [facility] HEMOGLOBIN AND HEMATOCRIT 2019-03-09 05:45:00 Jesi De Los Santos [facility] XR FOOT LEFT 3 VIEW 2019-03-08 20:56:00 Kailey Long [facility] POCT-GLUCOSE METER 2019-03-08 20:29:00 Filiberto [facility] TRANSFUSE LEUKO-REDUCED RED BLOOD CELLS 2019-03-08 18:43:31 Chela tim [facility] TRANSFUSION SERVICE REPORT - SCAN 2019-03-08 18:18:07 Provid er, Default Scanning [facility] HEMODIALYSIS INPATIENT 2019-03-08 15:32:59 Khadra Womack [facility] POCT-GLUCOSE METER 2019-03-08 11:39:00 Kayleigh De Los Santosush Lindsay [facility] POCT-GLUCOSE METER 2019-03-08 09:42:00 [facility]alleghany health [facility] PREPARE LEUKO-REDUCED RBC 2019-03-08 09:39:00 [facility] Lindsay Summers [facility] HEMOGLOBIN AND HEMATOCRIT 2019-03-08 06:21:00 Isabel Royal [facility] BASIC METABOLIC PANEL (7) 2019-03-07 22:27:00 Juan Segundo [facility] PT/APTT 2019-03-07 22:27:00 Juan Segundo [facility] PHOSPHORUS 2019-03-07 22:27:00 Isabel Royal LeslieMonique [facility] TYPE AND SCREEN, AUTOMATED 2019-03-07 22:27:00 Juan Segundo [facility] CBC W/PLT COUNT & AUTO DIFFERENTIAL 2019-03-07 22:27:00 AveryBora beckettyn Keshia [facility] REPORT OF PROCEDURE - ENDOSCOPY SCAN 2019-02-27 08:41:21 Pro vider, Default Scanning [facility] RHYTHM STRIP - SCAN 2019-02-27 08:41:19 Provider, Default Scanni [facility] TRANSFUSION SERVICE REPORT - SCAN 2019-02-25 18:04:11 Provid er, Default Scanning [facility] TRANSFUSION SERVICE REPORT - SCAN 2019-02-23 18:02:41 Provid er, Default Scanning [facility] TISSUE EXAM 2019-02-23 08:18:00 [facility] UPPER ENDOSCOPY 2019-02-23 08:00:00 [facility] POCT-GLUCOSE METER 2019-02-23 06:51:00 Jose Stevenson [facility] MAGNESIUM 2019-02-23 05:59:00 Nelly [facility] PHOSPHORUS 2019-02-23 05:59:00 Villegas [facility] BASIC METABOLIC PANEL (7) 2019-02-23 05:59:[address] [facility] CBC W/PLT COUNT & AUTO DIFFERENTIAL 2019-02-23 05:59:00 Villegas [facility] POCT-GLUCOSE METER 2019-02-22 20:56:00 Jose Stevenson [facility] PREPARE LEUKO-REDUCED RBC 2019-02-22 16:47:00 Shira Noe ma [facility] POCT-GLUCOSE METER 2019-02-22 13:08:00 Jose Stevenson [facility] TYPE AND SCREEN, AUTOMATED 2019-02-22 11:01:00 Shira Noe [facility] HEPATITIS B SURFACE ANTIBODY 2019-02-22 09:56:00 Shira Noe [facility] HEPATITIS B SURFACE ANTIGEN 2019-02-22 09:56:00 Shira Noe Tunde armmodesta [facility] POCT-GLUCOSE METER 2019-02-22 06:37:00 Jose Stevenson [facility] TROPONIN I 2019-02-22 05:31:00 Villegas, [facility] MAGNESIUM 2019-02-22 05:31:00 Villegas, [facility] PHOSPHORUS 2019-02-22 05:31:00 [facility] BASIC METABOLIC PANEL (7) 2019-02-22 05:31:00 [facility] W/[facility]T COUNT & AUTO DIFFERENTIAL 2019-02-22 05:31:00 [facility]old [facility] POCT-GLUCOSE METER 2019-02-21 20:42:00 Jose Stevenson [facility] HEMODIALYSIS INPATIENT 2019-02-21 19:03:22 Hasmukh Shira Yo [facility] POCT-GLUCOSE METER 2019-02-21 16:20:00 Jose Stevenson [facility] POCT-GLUCOSE METER 2019-02-21 11:44:00 Jose Stevenson [facility] POCT-GLUCOSE METER 2019-02-21 05:57:00 Jose Stevenson [facility] BASIC METABOLIC PANEL (7) 2019-02-21 04:20:[address] [facility] MAGNESIUM 2019-02-21 04:20:00 Villegas, [facility] PHOSPHORUS 2019-02-21 04:20:00 Nelly [facility] CBC W/PLT COUNT & AUTO DIFFERENTIAL 2019-02-21 04:20:00 [facility] TROPONIN I 2019-02-21 00:15:00 Nelly Gi [facility] POCT-GLUCOSE METER 2019-02-20 21:43:00 Graham Jose [facility] POCT-GLUCOSE METER 2019-02-20 18:29:00 Giacomorah [facility] POCT-GLUCOSE METER 2019-02-20 16:57:00 Graham Jose [facility] POCT-GLUCOSE METER 2019-02-20 15:25:00 Graham [facility] POCT-GLUCOSE METER 2019-02-20 14:18:00 Giacomorah [facility] POCT-GLUCOSE METER 2019-02-20 13:07:00 Graham [facility] POCT-GLUCOSE METER 2019-02-20 12:00:00 Graham [facility] POCT-GLUCOSE METER 2019-02-20 11:03:00 Graham [facility] POCT-GLUCOSE METER 2019-02-20 09:34:00 Graham Jose [facility] POCT-GLUCOSE METER 2019-02-20 07:18:00 Giacomorah [facility] POCT-GLUCOSE METER 2019-02-20 06:23:00 Graham [facility] BASIC METABOLIC PANEL (7) 2019-02-20 05:18:00 [facility] TROPONIN I 2019-02-20 05:18:00 [facility] POCT-GLUCOSE METER 2019-02-20 04:47:00 [facility] XR CHEST 1 VIEW PORTABLE/BEDSIDE 2019-02-20 04:16:00 Dash Prince syd [facility] POCT-GLUCOSE METER 2019-02-20 04:08:00 [facility] ELECTRICAL CARDIOVERSION 2019-02-20 03:25:03 [facility] PROCEDURAL SEDATION 2019-02-20 03:25:03 Jennifer [facility] ED ECG INTERPRETATION 2019-02-20 03:25:03 Jennifer, [facility] POCT-GLUCOSE METER 2019-02-20 03:11:00 Jennifer, [facility] BASIC METABOLIC PANEL (7) 2019-02-20 02:52:00 [facility] MAGNESIUM 2019-02-20 02:52:00 Jennifer, [facility] TROPONIN I 2019-02-20 02:52:00 Jennifer, [facility] B-TYPE NATRIURETIC FACTOR (BNP) 2019-02-20 02:51:00 Jennifer, [facility] PROTHROMBIN TIME/INR 2019-02-20 02:51:00 Jennifer, [facility] APTT 2019-02-20 02:51:[address] [facility] CBC W/PLT COUNT & AUTO DIFFERENTIAL 2019-02-20 02:51:00 Jennifer [facility] TRANSFUSION SERVICE REPORT - SCAN 2019-02-12 18:00:18 Provid er, Default Scanning [facility] TRANSFUSION SERVICE REPORT - SCAN 2019-02-10 18:00:50 Provid er, Default Scanning [facility] RHYTHM STRIP - SCAN 2019-02-10 14:01:15 Provider, Default Scanni [facility] REPORT OF PROCEDURE - ENDOSCOPY SCAN 2019-02-10 14:01:13 Pro vider, Default Scanning [facility] PREPARE LEUKO-REDUCED RBC 2019-02-09 23:54:00 Leslie Caceres [facility] TRANSFUSION SERVICE REPORT - SCAN 2019-02-09 18:01:01 Provid er, [facility] Scanning [facility] PREPARE RBC 2019-02-09 13:18:00 Rhiannon Caceres [facility] POCT-GLUCOSE METER 2019-02-09 08:32:00 Rhiannon Caceres [facility] HEMOGLOBIN AND HEMATOCRIT 2019-02-09 05:27:00 Leslie Caceres [facility] TRANSFUSE LEUKO-REDUCED RED BLOOD CELLS 2019-02-09 00:39:12 Rhiannon Caceres [facility] POCT-GLUCOSE METER 2019-02-09 00:12:00 Rhiannon Caceres [facility] PREPARE RBC 2019-02-08 23:54:00 SumitRut hinesayah [facility] POCT-GLUCOSE METER 2019-02-08 20:03:00 Rhiannon Caceres [facility] TRANSFUSE LEUKO-REDUCED RED BLOOD CELLS 2019-02-08 18:49:40 Rhiannon Caceres [facility] TRANSFUSION SERVICE REPORT - SCAN 2019-02-08 18:01:14 Provid er, Default Scanning [facility] POCT-GLUCOSE METER 2019-02-08 16:34:00 Rhiannon Caceres [facility] POCT-GLUCOSE METER 2019-02-08 13:51:00 Rhiannon Caceres [facility] HEMODIALYSIS INPATIENT 2019-02-08 12:14:00 Irena De La Torre [facility] POCT-GLUCOSE METER 2019-02-08 08:09:00 Rhiannon Caceres [facility] BASIC METABOLIC PANEL (7) 2019-02-08 04:31:00 [facility] MAGNESI[facility] 2019-02-08 04:31:00 Richard Escalera Kv[facility] PHOSPHORUS 2019-02-08 04:31:00 Richard Escalera Kvng [facility] CBC W/PLT COUNT & AUTO DIFFERENTIAL 2019-02-08 04:31:00 Modesta Escalera [facility] POCT-GLUCOSE METER 2019-02-08 00:08:00 Gadicherrandy, Rut Muralin [facility] TRANSFUSE LEUKO-REDUCED RED BLOOD CELLS 2019-02-07 22:25:16 Gadicherla, Rut Muralinath [facility] POCT-GLUCOSE METER 2019-02-07 21:30:00 Gadicherla, Rut Muralin ath [facility] POCT-GLUCOSE METER 2019-02-07 20:00:00 Gadicherla, Rut Muralin [facility] TRANSFUSION SERVICE REPORT - SCAN 2019-02-07 18:50:04 Provid er, Default Scanning [facility] TYPE AND SCREEN, AUTOMATED 2019-02-07 15:32:00 Gadicherla, Rut Muralinath [facility] POCT-GLUCOSE METER 2019-02-07 13:01:00 Gadicherla, Rut Muralin [facility] POCT-GLUCOSE METER 2019-02-07 08:16:00 Gadicherla, Rut Muralin [facility] BASIC METABOLIC PANEL (7) 2019-02-07 06:13:00 Richard Escalera [facility] MAGNESIUM 2019-02-07 06:13:00 Richard Escalera [facility] PHOSPHORUS 2019-02-07 06:13:[address] [facility] CBC W/PLT COUNT & AUTO DIFFERENTIAL 2019-02-07 06:13:00 Modesta Escalera [facility] PREPARE LEUKO-REDUCED RBC 2019-02-06 23:54:00 Gadicherrandy, Rut Muralinath [facility] POCT-GLUCOSE METER 2019-02-06 22:20:00 Gadicherla, Rut Muralin [facility] POCT-GLUCOSE METER 2019-02-06 20:18:00 Gadicherla, Rut Muralin [facility] HEMODIALYSIS INPATIENT 2019-02-06 18:10:00 Irena De La Torre [facility] TRANSFUSION SERVICE REPORT - SCAN 2019-02-06 18:00:12 Provid er, Default Scanning [facility] POCT-GLUCOSE METER 2019-02-06 17:07:00 Gadchristierrandy, Rut Muralin ath [facility] POCT-GLUCOSE METER 2019-02-06 14:41:00 Gadchristierrandy, Rut Muralin ath [facility] POCT-GLUCOSE METER 2019-02-06 08:26:00 Gadchristierrandy, Rut Muralin [facility] BASIC METABOLIC PANEL (7) 2019-02-06 04:42:00 Jw Jesusitaleslie [facility] MAGNESIUM 2019-02-06 04:42:00 Jw Richard [facility] PHOSPHORUS 2019-02-06 04:42:[facility] & AUTO DIFFERENTIAL 2019-02-06 04:42:00 Modesta Escalera [facility] PREPARE LEUKO-REDUCED RBC 2019-02-05 23:54:00 MalcolmerRut padilla [facility] POCT-GLUCOSE METER 2019-02-05 20:57:00 Malcolmerrandy, Rut Muralin [facility] TRANSFUSE LEUKO-REDUCED RED BLOOD CELLS 2019-02-05 18:48:44 Malcolmerrandy, Rut Muralinath [facility] TRANSFUSION SERVICE REPORT - SCAN 2019-02-05 18:00:26 Provid er, Default Scanning [facility] POCT-GLUCOSE METER 2019-02-05 15:50:00 MalcolmerPio padillaal Muralin ath [facility] POCT-GLUCOSE METER 2019-02-05 10:46:00 Gadicherla, Rut Muralin [facility] BASIC METABOLIC PANEL (7) 2019-02-05 04:37:00 [facility]lie [facility] MAGNESIUM 2019-02-05 04:37:00 Jw Jesusitaleslie [facility] PHOSPHORUS 2019-02-05 04:37:00 Richard Escalera [facility] CBC W/PLT COUNT & AUTO DIFFERENTIAL 2019-02-05 04:37:00 Modesta Escalera [facility] PREPARE LEUKO-REDUCED RBC 2019-02-04 23:54:00 Gold Gabriel [facility] TRANSFUSE LEUKO-REDUCED RED BLOOD CELLS 2019-02-04 21:23:00 Gadicherla, Rut Muralinath [facility] POCT-GLUCOSE METER 2019-02-04 19:36:00 Gadicherla, Rut Muralin ath [facility] TRANSFUSION SERVICE REPORT - SCAN 2019-02-04 18:00:49 Provid er, Default Scanning [facility] TYPE AND SCREEN, AUTOMATED 2019-02-04 17:01:00 Gadicherla, Rut Muralinath [facility] POCT-GLUCOSE METER 2019-02-04 16:11:00 Gadicherla, Rut Muralin ath [facility] POCT-GLUCOSE METER 2019-02-04 09:53:00 Gadicherla, Rut Muralin ath [facility] BASIC METABOLIC PANEL (7) 2019-02-04 05:29:00 Richard Escalera [facility] MAGNESIUM 2019-02-04 05:29:00 Richard Escalera [facility] PHOSPHORUS 2019-02-04 05:29:00 Richard Escalera [facility] CBC W/PLT COUNT & AUTO DIFFERENTIAL 2019-02-04 05:29:00 Modesta Escalera [facility] TRANSFUSION SERVICE REPORT - SCAN 2019-02-03 18:04:27 Provid er, Default Scanning [facility] ANTIBODY IDENTIFICATION 2019-02-03 16:05:00 Gold Gabriel [facility] POCT-GLUCOSE METER 2019-02-03 15:19:00 Gadicherla, Rut Muralin ath [facility] LACTIC ACID, VENOUS 2019-02-03 08:54:00 Loren Root [facility] BLOOD CULTURE 2019-02-03 08:53:00 Loren Root [facility] POCT-GLUCOSE METER 2019-02-03 08:35:00 [facility] HEMODIALYSIS INPATIENT 2019-02-03 08:32:13 Irena De La Torre [facility] TRANSFUSE LEUKO-REDUCED RED BLOOD CELLS 2019-02-03 08:02:57 Gold Gabriel [facility] BASIC METABOLIC PANEL (7) 2019-02-03 05:14:00 Richard Escalera [facility] MAGNESIUM 2019-02-03 05:14:[address] [facility] PHOSPHORUS 2019-02-03 05:14:[address] [facility] CBC W/PLT COUNT & AUTO DIFFERENTIAL 2019-02-03 05:14:00 Modesta Escalera [facility] POCT-GLUCOSE METER 2019-02-03 04:58:00 [facility] PREPARE RBC 2019-02-03 03:24:00 Gold Gabriel [facility] HIV-1 ANTIGEN WITH HIV-1/2 ANTIBODY 2019-02-03 00:25:00 Modesta Escalera [facility] HEPATITIS C ANTIBODY 2019-02-03 00:25:00 Jw [facility] HEPATITIS B PANEL 2019-02-03 00:25:00 Jw [facility] POCT-GLUCOSE METER 2019-02-02 21:15:00 Gold Gabriel [facility] BASIC METABOLIC PANEL (7) 2019-02-02 19:57:00 Gold Gabriel [facility] MAGNESIUM 2019-02-02 19:57:00 Gold Gabriel [facility] TROPONIN I 2019-02-02 19:57:00 Gold Gabriel [facility] PT/APTT 2019-02-02 19:57:00 Gold Gabriel [facility] B-TYPE NATRIURETIC FACTOR (BNP) 2019-02-02 19:57:00 Gold Gabriel [facility] TYPE AND SCREEN, AUTOMATED 2019-02-02 19:57:00 Gold Gabriel [facility] DIRECT AHG (KAYLENE)/DIRECT KAYDEN 2019-02-02 19:57:00 Gold Gabriel [facility] CBC W/PLT COUNT & AUTO DIFFERENTIAL 2019-02-02 19:57:00 Julian Gabriel [facility] XR CHEST 1 VIEW PORTABLE/BEDSIDE 2019-02-02 19:31:00 Gold Gabriel [facility] ECG 12-LEAD 2019-02-02 15:49:56 Gold Gabriel [facility] [id number] 2019-02-01 00:00:00 ENCPL 46762U1 2019-02-01 00:00:00 ENCPL 04910W8 2019-02-01 00:00:00 ENCPL 35695I1 2019-02-01 00:00:00 ENCPL 85092N3 2019-02-01 00:00:00 ENCPL 36844P9 2019-02-01 00:00:00 ENCPL 67759J6 2019-02-01 00:00:00 ENCPL 20659V2 2019-02-01 00:00:00 ENCPL 92236I2 2019-02-01 00:00:00 ENCPL 00659C6 2019-02-01 00:00:00 ENCPL 15986T3 2019-02-01 00:00:00 ENCPL 81220Z1 2019-02-01 00:00:00 ENCPL 25233Q8 2019-02-01 00:00:00 ENCPL 71075V8 2019-02-01 00:00:00 ENCPL CARDIAC CATH REPORT - SCAN 2019-01-31 08:32:33 Provider, Default Scanning [facility] RHYTHM STRIP - SCAN 2019-01-31 08:32:18 Provider, Default Scanni ng [facility] [id number] 2019-01-27 00:00:00 ENCPL 6F1W44B 2019-01-27 00:00:00 ENCPL 0E7W96D 2019-01-27 00:00:00 ENCPL 7O4L69V 2019-01-27 00:00:00 ENCPL 6W3U67U 2019-01-27 00:00:00 ENCPL 2A6J24E 2019-01-27 00:00:00 ENCPL 5B4Z36R 2019-01-27 00:00:00 ENCPL 7P8Y79B 2019-01-27 00:00:00 ENCPL 8M0B00Z 2019-01-27 00:00:00 ENCPL 2Q8K15K 2019-01-27 00:00:00 ENCPL 9A3Z40Q 2019-01-27 00:00:00 ENCPL 7G7U57B 2019-01-27 00:00:00 ENCPL 9Y6M11R 2019-01-27 00:00:00 ENCPL 1H4S04J 2019-01-27 00:00:00 ENCPL 8T0T66G 2019-01-27 00:00:00 ENCPL 6N7E50F 2019-01-27 00:00:00 ENCPL 2Q9X82I 2019-01-27 00:00:00 ENCPL 1F6N92S 2019-01-27 00:00:00 ENCPL 1Y5H36X 2019-01-27 00:00:00 ENCPL 2U2N68Y 2019-01-27 00:00:00 ENCPL 8A7M25B 2019-01-27 00:00:00 ENCPL 9J5G80X 2019-01-27 00:00:00 ENCPL 2T6R93V 2019-01-27 00:00:00 ENCPL 2R2Y27D 2019-01-27 00:00:00 ENCPL 9W2Z84P 2019-01-27 00:00:00 ENCPL 9S5U43K 2019-01-27 00:00:00 ENCPL 8V6U29W 2019-01-27 00:00:00 ENCPL 9T7K89N 2019-01-27 00:00:00 ENCPL 4K9Z75G 2019-01-27 00:00:00 ENCPL 1K1F87P 2019-01-27 00:00:00 ENCPL 9O2W10U 2019-01-27 00:00:00 ENCPL 8B8S81X 2019-01-27 00:00:00 ENCPL 5E3K54K 2019-01-27 00:00:00 ENCPL 5B1G83X 2019-01-27 00:00:00 ENCPL 7D6C42T 2019-01-27 00:00:00 ENCPL 3N2H70S 2019-01-27 00:00:00 ENCPL 3B7L87K 2019-01-27 00:00:00 ENCPL POCT-GLUCOSE METER 2019-01-25 21:20:00 [facility] 2019-01-25 20:35:21 Irena De La Torre [facility] POCT-GLUCOSE METER 2019-01-25 18:08:00 [facility]SE [facility] 2019-01-25 11:05:00 Silvina [facility] POCT-GLUCOSE METER 2019-01-25 08:00:00 Silvina [facility] BASIC METABOLIC PANEL (7) 2019-01-25 04:26:00 [facility] W/[facility]T COUNT & AUTO DIFFERENTIAL 2019-01-25 04:26:00 Sidra Finley [facility] POCT-GLUCOSE METER 2019-01-24 21:23:00 Silvina [facility] POCT-GLUCOSE METER 2019-01-24 17:09:00 [facility] POCT-GLUCOSE METER 2019-01-24 12:17:00 [facility] XR FOOT LEFT 3 VIEW 2019-01-24 10:49:00 Kj Ramirez [facility] POCT-GLUCOSE METER 2019-01-24 09:52:00 Silvina [facility] TISSUE EXAM 2019-01-24 08:35:00 Kj Ramirez [facility] DEBRIDEMENT/I&D,WOUND EXTREMITY LOWER 2019-01-24 07:30:00 Kj Ramirez [facility] SKIN GRAFT,SKIN SUBSTITUTE 2019-01-24 07:30:00 Kj Ramirez [facility] BASIC METABOLIC PANEL (7) 2019-01-24 03:21:00 Malia [facility] CBC W/PLT COUNT & AUTO DIFFERENTIAL 2019-01-24 03:21:00 Nalkayla, R oaftab [facility] POCT-GLUCOSE METER 2019-01-23 21:17:00 [facility] 2019-01-23 17:34:00 Nalam, [facility] POCT-GLUCOSE METER 2019-01-23 12:24:00 Nalam, [facility] POCT-GLUCOSE METER 2019-01-23 08:13:00 Nalam, [facility] BASIC METABOLIC PANEL (7) 2019-01-23 04:34:00 Nal [facility] CBC W/PLT COUNT & AUTO DIFFERENTIAL 2019-01-23 04:34:00 Nalam, R oopa [facility] POCT-GLUCOSE METER 2019-01-22 21:10:00 Nal, [facility] POCT-GLUCOSE METER 2019-01-22 15:52:00 Nalam, [facility] POCT-GLUCOSE METER 2019-01-22 12:14:00 Nal, [facility] POCT-GLUCOSE METER 2019-01-22 07:05:00 [facility] BASIC METABOLIC PANEL (7) 2019-01-22 04:42:00 [facility] CBC W/PLT COUNT & AUTO DIFFERENTIAL 2019-01-22 04:42:00 Nalam, R oopa [facility] POCT-GLUCOSE METER 2019-01-21 23:00:00 [facility] TRANSFUSION SERVICE REPORT - SCAN 2019-01-21 18:03:41 Provid er, [facility] POCT-GLUCOSE METER 2019-01-21 17:42:00 Nalam, [facility] POCT-GLUCOSE METER 2019-01-21 12:11:00 Nal, [facility] POCT-GLUCOSE METER 2019-01-21 06:57:00 [facility] BASIC METABOLIC PANEL (7) 2019-01-21 04:13:00 [facility] CBC W/PLT COUNT & AUTO DIFFERENTIAL 2019-01-21 04:13:00 Sidra Finley [facility] POCT-GLUCOSE METER 2019-01-20 19:59:00 [facility] TRANSFUSION SERVICE REPORT - SCAN 2019-01-20 18:03:22 Provid er, Default Scanning [facility] POCT-GLUCOSE METER 2019-01-20 14:37:00 [facility] POCT-ACT 2019-01-20 13:08:00 [facility] HEMOGLOBIN AND HEMATOCRIT 2019-01-20 13:04:01 Kody Peña [facility] PERIPHERAL ANGIOS & IVUS 2019-01-20 12:34:00 Kody Peña [facility] POCT-GLUCOSE METER 2019-01-20 11:27:00 [facility] HEMODIALYSIS INPATIENT 2019-01-20 09:12:55 Irena De La Torre [facility] POCT-GLUCOSE METER 2019-01-20 07:41:00 [facility] BASIC METABOLIC PANEL (7) 2019-01-20 04:09:00 [facility] VANCOMYCIN LEVEL, RANDOM 2019-01-20 04:09:00 Ira Zhang [facility] CBC W/PLT COUNT & AUTO DIFFERENTIAL 2019-01-20 04:09:00 [facility] PREPARE LEUKO-REDUCED RBC 2019-01-19 23:54:00 [facility] POCT-GLUCOSE METER 2019-01-19 21:44:00 [facility] TRANSFUSION SERVICE REPORT - SCAN 2019-01-19 17:54:05 Provid er, Default Scanning [facility] POCT-GLUCOSE METER 2019-01-19 17:28:00 [facility] POCT-[facility]UCOSE METER 2019-01-19 11:43:00 [facility] POCT-GLUCOSE METER 2019-01-19 07:29:00 [facility] CALCIUM, IONIZED 2019-01-19 03:18:00 [facility] MAGNESIUM 2019-01-19 03:18:00 Shania [facility] PHOSPHORUS 2019-01-19 03:18:00 Trungcarnegieyang [facility] BASIC METABOLIC PANEL (7) 2019-01-19 03:18:00 Malia [facility] VANCOMYCIN LEVEL, RANDOM 2019-01-19 03:18:00 Ira Zhang [facility] CBC W/PLT COUNT & AUTO DIFFERENTIAL 2019-01-19 03:18:00 Sidra Finley [facility] HEMODIALYSIS INPATIENT 2019-01-18 22:32:00 Nicole Buckley [facility] POCT-GLUCOSE METER 2019-01-18 22:28:00 Malia [facility] TRANSFUSE LEUKO-REDUCED RED BLOOD CELLS 2019-01-18 21:34:50 Andreia Sullivan [facility] TYPE AND SCREEN, AUTOMATED 2019-01-18 18:25:00 Malia [facility] POCT-GLUCOSE METER 2019-01-18 16:33:00 Silvina [facility] POCT-GLUCOSE METER 2019-01-18 12:22:00 Silvina [facility] XR FOOT LEFT 3 VIEW 2019-01-18 11:09:00 Kj Ramirez [facility] SURGICALLY OBTAINED CULTURE + GRAM STAIN 2019-01-18 09:17:36 Kj Leblanc [facility] ANAEROBIC CULTURE 2019-01-18 09:17:36 Kj Ramirez [facility] SURGICALLY OBTAINED CULTURE + GRAM STAIN 2019-01-18 09:15:04 Kj Leblanc [facility] ANAEROBIC CULTURE 2019-01-18 09:15:04 Kj Ramirez [facility] TISSUE EXAM 2019-01-18 09:15:00 Kj Ramirez [facility] I&D,BONE FOOT 2019-01-18 08:00:00 Kj Ramirez [facility] VANCOMYCIN LEVEL, RANDOM 2019-01-18 03:19:00 Orestes Kovacs [facility] CALCIUM, IONIZED 2019-01-18 03:19:00 Shania [facility] MAGNESIUM 2019-01-18 03:19:00 Shania [facility] PHOSPHORUS 2019-01-18 03:19:00 Shania [facility] HEPATITIS B SURFACE ANTIGEN 2019-01-18 03:19:00 Nicole Buckley [facility] BASIC METABOLIC PANEL (7) 2019-01-18 03:19:00 Andreia Finley [facility] CBC W/PLT COUNT & AUTO DIFFERENTIAL 2019-01-18 03:19:00 Sidra Finley [facility] POCT-GLUCOSE METER 2019-01-17 23:17:00 Nalam, Andreia Sangeetha [facility] POCT-GLUCOSE METER 2019-01-17 20:21:00 Nalam, Andreia Sangeetha [facility] POCT-GLUCOSE METER 2019-01-17 18:17:00 Nalam, Andreia [facility] POCT-GLUCOSE METER 2019-01-17 10:10:00 [facility] POCT-[facility]UCOSE METER 2019-01-17 05:14:00 [facility] BASIC METABOLIC PANEL (7) 2019-01-17 05:09:00 ShaniaSammy [facility] CALCIUM, IONIZED 2019-01-17 05:09:00 [facility] MAGNESIUM 2019-01-17 05:09:00 Shania [facility] PHOSPHORUS 2019-01-17 05:09:00 Shania [facility] CBC W/PLT COUNT & AUTO DIFFERENTIAL 2019-01-17 05:09:00 Trungcarnegiemargret kaur [facility] ARTERIAL DOPPLER LEG, LEFT 2019-01-17 00:56:00 [facility] BLOOD CULTURE 2019-01-17 00:17:00 [facility] COMPREHENSIVE METABOLIC PANEL 2019-01-16 21:21:00 [place] [facility] PT/APTT 2019-01-16 21:21:00 [facility] MAGNESIUM 2019-01-16 21:21:00 [facility] C-REACTIVE PROTEIN 2019-01-16 21:21:00 [facility] CBC W/PLT COUNT & AUTO DIFFERENTIAL 2019-01-16 21:21:00 [facility] XR FOOT LEFT 3 VIEW 2019-01-16 18:22:00 [facility] X-ray of chest, single view 2018-11-24 00:00:00 ORESTES GONZALEZ [facility] FEM/POPL REVAS W/ATHER 2018-09-15 00:00:00 CLAUDEMARILYN Cabral [facility] TIB/PER REVASC W/ATHER 2018-09-15 00:00:00 MARILYN ARCE [facility] TIBPER REVASC W/ATHER ADD-ON 2018-09-15 00:00:00 MARILYN ARCE [facility] CONTRAST EXAM ABDOMINL AORTA 2018-09-15 00:00:00 [facility] ARTERY X-RAYS ARMS/LEGS 2018-09-15 00:00:00 [facility] Plan of Care Planned Activity Planned Date Details Comments Source Future Scheduled Test 2022-08-07 00:00:00 Lipid panel (proce dure) [code = 89195225] [facility] Future Scheduled Test 2020-02-08 00:00:00 Hemoglobin A1c efrain surement (procedure) [code = 66325694] [facility] Scheduled Test 2019-10-31 00:00:00 INFLUENZA VACCINE (#1) [code = INFLUENZA VACCINE (#1)] [facility] Scheduled Test 2012-04-30 00:00:00 MEDICARE ANNUAL WE LLNESS (YEAR 2 or FIRST YEAR if no IPPE) [code = MEDICARE ANNUAL WELLNESS (YEAR 2 or FIRST YEAR if no IPPE)] [facility] Scheduled Test 2012-03-25 23:17:42 Plan of Care [code = 1877 6-5] [facility] Scheduled Test 2012-02-21 19:42:52 Plan of Care [code = 1877 6-5] [facility] Scheduled Test 2012-01-13 18:33:51 Plan of Care [code = 1877 6-5] [facility] Scheduled Test 1972 00:00:00 DIABETIC EYE EXAM [code = DIABETIC EYE EXAM] [facility] Scheduled Test 1972 00:00:00 Diabetic foot exam ination (regime/therapy) [code = 949213707] [facility] Future Scheduled Test 1972 00:00:00 Urine screening fo r protein (procedure) [code = 650547868] [facility] Future Scheduled Test 1968 00:00:00 PNEUMOCOCCAL VACCI NE 2-64 YEARS AT RISK (1 of 1 - PPSV23) [code = PNEUMOCOCCAL VACCINE 2-64 YEARS AT RISK (1 of 1 - PPSV23)] [facility] Future Scheduled Test 1962 00:00:00 Screening for vance gnant neoplasm of colon (procedure) [code = 374887277] [facility] Encounters Start Date/Time End Date/Time Encounter Type Admission Type [facility] Care Department Encounter ID Source 2019-10-10 10:00:53 2019-10-10 10:20:53 Office Visit Jose Alejandro Ibarra [facility] [id number] 2019-09-19 12:36:31 2019-09-19 13:33:52 Office Visit Jose Alejandro Ibarra Michael [facility] [id number] 2019-09-04 13:53:07 2019-09-04 15:09:08 Office Visit Roland Butler [facility] [id number] 2019-08-18 12:47:50 2019-08-18 15:42:41 Office Visit Álvaro Salinas ams [facility] [id number] 2019-07-20 10:44:55 2019-07-20 15:45:33 Office Visit Kj Ramirez [facility] [id number] 2019-05-11 12:20:34 2019-05-11 14:24:17 Office Visit Kj Ramirez [facility] [id number] 2019-04-24 10:57:19 2019-04-24 17:18:15 Office Visit Roland Butler [facility] [id number] 2019-03-27 15:00:38 2019-03-27 17:01:56 Office Visit Kj Ramirez [facility] [id number] 2019-01-06 15:29:00 2019-01-28 23:59:00 Discharged Recurring [facility] [id number] [facility] 2019-01-10 05:55:00 2019-01-10 05:55:00 Outpatient [id number] 2018-11-24 18:09:00 2018-11-24 23:50:00 Departed Emergency Room 1 SHARMIN HO [facility] [id number] [facility] 2018-09-15 07:11:00 2018-09-15 07:11:00 Registered Surgical Day Care [facility] [id number] [facility] 2018-03-03 14:02:00 2018-03-03 14:02:00 Registered Clinic 3 OLGA CRANE [facility] [id number] [facility] 2012-03-25 17:18:00 2012-03-25 17:17:42 Outpatient [facility] BALJINDERIE [id number] 2012-02-21 13:43:09 2012-02-21 13:42:52 Outpatient MHIE [id number] 2012-01-13 12:34:06 2012-01-13 12:33:51 Outpatient [facility]IE [id number] Results Test Description Test Time Test Comments Results Result Comments Source ECG 12 lead 2019-10-09 06:35:48 Interface, E xternal Ris In 10/09/2019 6:35 AM CDTVentricular Rate 80 BPMAtrial Rate 80 BPMP-R Interval 228 msQRS Duration 98 msQ-T Interval 386 msQTC Calculation(Bazett) 445 msP Brusly 48 degreesR Brusly - 26 degreesT Brusly 53 degreesSinus rhythm with 1st degree A-V blockPoor R wave progression 02 Feb 2019When compared with ECG of 07-APR-2019 06:54,No significant change was foundConfirmed by MD LIZETH, SRIDEVI ([id number]) on 10/09/2019 6:35:43 AM [facility] Dontrell r Prepare Leuko-Red RBC 2019-10-08 23:54:00 Test Item Unit ABO (test code = 8800054) O Pos UNIT NUMBER (test code = 934-0) [id number] Status (test code = 6756707) TX_TIMEINCHART Blood Bank Product (test code = 2263) RED BLOOD CELLS PRODUCT CODE (test code = 933-2) [id number] CROSSMATCH (test code = 2264) COMPATIBLE [facility] [id number] 16:09:00* Test Item Value Reference Range Interpretation Comments Troponin I (test code = 23092-4) 0.07 ng/mL 0-0.03 H VLADIMIR (test code = VLADIMIR) Troponin I (TnI) levels must be interpreted in the context of the presenting symptoms and the clinical findings. Elevated TnI levels indicate myocardial damage, but are not specific for ischemic heart disease. Elevated TnI levels are seen in patients with other cardiac conditions (including myocarditis and congestive heart failure), and slight TnI elevations occur in patients with other conditions, including sepsis, renal failure, acidosis, acute neurological disease, and persistent tachyarrhythmia.Chainer ID - TREVONG Lab Interpretation (test code = 91763-7) Abnormal [facility] [id number] 16:09:00* Test Item Value Reference Range Interpretation Comments TROPONIN I (BEAKER) (test code = 397) 0.07 ng/mL 0.00-0.03 H Troponin I (TnI) levels must be interpreted in the context of the presenting sym ptoms and the clinical findings. Elevated TnI levels indicate myocardial damage, but are not specific for ischemic heart disease. Elevated TnI levels are seen in patients with other cardiac conditions (including myocarditis and congestive h eart failure), and slight TnI elevations occur in patients with other conditions , including sepsis, renal failure, acidosis, acute neurological disease, and per sistent tachyarrhythmia.Chainer ID - ROSHOLLYGPOC-Glucose [id number] 15:52:00* Test Item Value Reference Range Interpretation Comments POC-Glucose Meter (test code = 1538) 174 mg/dL 70-110 H : TESTED AT [place] [id number] [facility], [address]: Chainer/Molding Machine Operator ID = [id number] for LAURA SHEETS Lab Interpretation (test code = 55789-6) [facility] [id number] 15:52:00* Test Item Value Reference Range Interpretation Comments POC-GLUCOSE METER (BEAKER) (test code = 1538) 174 mg/dL 70-110 H : TESTED AT [facility] [address] [facility], [address]: Chainer/Molding Machine Operator ID = [id number] for LAURA SHEETS Hemoglobin and [id number] 13:50:00* Test Item Value Reference Range Interpretation Comments Hemoglobin (test code = 786-4) 7.2 13.7- 17.5 GM/DL L Hematocrit (test code = 4544-3) 21.2 % 40.1-51 L VLADIMIR (test code = VLADIMIR) Chainer ID - [id number] Lab Interpretation (test code = 01725-5) [facility]normal [facility]MO[facility] AND [id number] 13:50:00* Test Item Value Reference Range Interpretation Comments HEMOGLOBIN (BEAKER) (test code = 410) 7.2 GM/DL 13.7-17.5 L HEMATOCRIT (BEAKER) (test code = 411) 21.2 % 40.1-51.0 L Chainer ID - [id number] [id number] 13:45:00Sarmad Arias RN 10/07/2019 2:08 PMTolerated and completed 2 hours and 0minutes. No distress noted, asymptomatic. Denies any discomfort and pain.UF fluid removed 2 liters.Secured access with pressure dressing gauze and tape. No further bleeding nted. Report given to nurse Leslie BURROWS. Latest lab result:Lab Results Component Value Date WBC 4.3 10/07/2019 HGB 7.2 (L) 10/07/2019 HCT 21.2 (L) 10/07/2019 MCV 98.0 (H) 10/07/2019 PLT 139 (L) 10/07/2019 Lab Results Component Value Date GLUCOSE 124 (H) 10/07/2019 CALCIUM 9.3 10/07/2019 NA 138 10/07/2019 K 3.7 10/07/2019 CO2 33 (H) 10/07/2019 CL 97 (L) 10/07/2019 BUN 24 (H) CREATININE 6.20 (H) 10/07/2019 Sarmadrika Arias BSN, RN II7S6- Adult Qu[place] [id number] [facility] [id number] 13:39:00* Test Item Value Reference Range Interpretation Comments POC-GLUCOSE METER (BEAKER) (test code = 1538) 104 mg/dL 70-110 : TESTED AT [facility] [address] [facility], [address]: Chainer/Molding Machine Operator ID = [id number] for Sarmad Arias SARS-CoV2/RT-PCR (Asymptomatic ONLY)2019-10-07 10:45:00* Test Item Value Reference Range Interpretation Comments SARS-COV2/RT-PCR (test code = 40543-2) Negative N ot Detected, Negative, See external report for linked test SARS-COV-2 PERFORMING LAB (test code = 18438-7) [facility] JANY VLADIMIR (test code = VLADIMIR) Negative result for this harry t determines that SARS-CoV-2 RNA was not present in the specimen above the Limit of Detection (LOD). However, Negative results do not preclude SARS-CoV-2 infection and should not be used as the sole basis for treatment or patient management decisions. Negative results must be combined with clinical observations, patient history, and epidemiological information. A false negative result may occur if a specimen is improperly collected, transported or handled. A false negative result should be considered if patient's recent exposures or clinical presentation indicate that COVID-19 (SARS-CoV-2) is likely and diagnostic tests for other causes of illness are negative. Re-testing should be considered in cases of suspected false negatives. The limit of detection for this assay is 800 copies/mL. This SARS CoV-2 test is a real-time RT-PCR test intended for the qualitative detection of nucleic acid from SARS-CoV-2 in a nasopharyngeal swab specimen collected from individuals suspected of COVID-19 by their healthcare provider. This test has not been Food and Drug Administration (FDA) cleared or approved. This is a modified version of an approved Emergency Use Authorization (EUA) and is in the process of review by the FDA. Once authorized by the FDA, the issued EUA will be effective until the declaration that circumstances exist justifying the authorization of the emergency use of in vitro diagnostic tests for detection and/or diagnosis of COVID-19 is terminated under Section 564(b)(2) of the Act or the EUA is revoked under Section 564(g) of the Act. Fact Sheet for Healthcare Providers:https://www.[employer]/sites/default/files/product/documents/Fact_Shee y_RN_Spyybfecj_Wdfk_QMKZ-PpU-8.pdf Fact Sheet for Healthcare Patients:https://www.[employer]/sites/default/files/pro duct/documents/Ykbx_Xjgsp_Ktivaqwb_Nplw_AQAL-DqG-5.pdf Performing Laboratory:[facility], [place] [address] [place], [place] [address]ARS-COV2/RT-PCR ([facility])2019-10-07 10:45:00* Test Item Value Reference Range Interpretation Comments SARS-COV2/RT-PCR (test code = 6071219) Negative N ot Detected, Negative, See external report for linked test SARS-COV-2 PERFORMING LAB (test code = 8584879) [facility] JANY Negative result for this test determines that SARS-CoV-2 RNA was not present in the specimen above the Limit of Detection (LOD). However, Negative results do n ot preclude SARS-CoV-2 infection and should not be used as the sole basis for tr eatment or patient management decisions. Negative results must be combined with clinical observations, patient history, and epidemiological information. A false negative result may occur if a specimen is improperly collected, transported or handled. A false negative result should be considered if patient's recent expo sures or clinical presentation indicate that COVID-19 (SARS-CoV-2) is likely and diagnostic tests for other causes of illness are negative. Re-testing should be considered in cases of suspected false negatives.The limit of detection for this assay is 800 copies/mL.This SARS CoV-2 test is a real-time RT-PCR test intended for the qualitative detection of nucleic acid from SARS-CoV-2 in a nasopharyn geal swab specimen collected from individuals suspected of COVID-19 by their [facility] provider.This test has not been Food and Drug Administration (FDA) clear ed or approved. This is a modified version of an approved Emergency Use Authori zation (EUA) and is in the process of review by the FDA. Once authorized by [facility] FDA, the issued EUA will be effective until the declaration that circumstances exist justifying the authorization of the emergency use of in vitro diagnostic tests for detection and/or diagnosis of COVID-19 is terminated under Section 564 (b)(2) of the Act or the EUA is revoked under Section 564(g) of the Act.Fact She et for Healthcare Providers:https://www.[employer]/sites/default/files/product/d ocuments/Wfwq_Rcdbk_OU_Barkidjmj_Trov_NAJF-JeR-3.pdfFact Sheet for Healthcare Pa tients:https://www.[employer]/sites/default/files/product/documents/Fact_Sheet_P exnozqt_Otlr_TNYJ-EmL-4.pdfPerforming Laboratory:[facility] [address] [facility].[place], [place] [address]HGVA-JHCIGYF [id number] 07:35:00* Test Item Value Reference Range Interpretation Comments POC-GLUCOSE METER ([employer]) (test code = 1538) 118 mg/dL 70-110 H : TESTED AT [facility] [address] [facility], [address]: Chainer/Molding Machine Operator ID = [id number] for LAURA SHEETS TROPONIN [id number] 07:13:00* Test Item Value Reference Range Interpretation Comments TROPONIN I (Aeryon LabsAKER) (test code = 397) 0.08 ng/mL 0.00-0.03 H Troponin I (TnI) levels must be interpreted in the context of the presenting sym ptoms and the clinical findings. Elevated TnI levels indicate myocardial damage, but are not specific for ischemic heart disease. Elevated TnI levels are seen in patients with other cardiac conditions (including myocarditis and congestive h eart failure), and slight TnI elevations occur in patients with other conditions , including sepsis, renal failure, acidosis, acute neurological disease, and per sistent tachyarrhythmia.Chainer ID - ELIZABETH WBasic Metabolic [id number] 07:08:00* Test Item Value Reference Range Interpretation Comments Sodium (test code = 2951-2) 138 meq/L 136-145 Potassium (test code = 2823-3) 3.7 meq/L 3.5-5.1 Chloride (test code = 2075-0) 97 meq/L 98-107 L CO2 (test code = 2028-9) 33 meq/L 22-29 H BUN (test code = 3094-0) 24 mg/dL 7-21 H Creatinine (test code = 2160-0) 6.20 mg/dL 0.57-1.25 H Glucose (test code = 2345-7) 124 mg/dL 70-105 H Calcium (test code = 49481-8) 9.3 mg/dL 8.4-10.2 EGFR (test code = 61044-4) 9 mL/min/1.73 sq m ESTIMATED GFR IS NOT ACCURATE CREATININE CLEARANCE IN PREDICTING GLOMERULAR FILTRATION RATE. ESTIMATED GFR IS NOT APPLICABLE FOR DIALYSIS PATIENTS. VLADIMIR (test code = VLADIMIR) Chainer ID Carla JOHNSON W Lab Interpretation (test code = 70305-0) [facility] [id number] 07:08:00* Test Item Value Reference Range Interpretation Comments SODIUM (BEAKER) (test code = 381) 138 meq/L 136-145 POTASSIUM (BEAKER) (test code = 379) 3.7 meq/L 3.5-5.1 CHLORIDE (BEAKER) (test code = 382) 97 meq/L 98-107 L CO2 (BEAKER) (test code = 355) 33 meq/L 22-29 H BLOOD UREA NITROGEN (BEAKER) (test code = 354) 24 mg/dL 7-21 H CREATININE (BEAKER) (test code = 358) 6.20 mg/dL 0.57-1.25 H GLUCOSE RANDOM (BEAKER) (test code = 652) 124 mg/dL 70-105 H CALCIUM (BEAKER) (test code = 697) 9.3 mg/dL 8.4-10.2 EGFR (BEAKER) (test code = 1092) 9 mL/min/1.73 sq m ESTIMATED GFR IS NOT ACCURATE CREATININE CLEARANCE IN PREDICTING GLOMERULAR FILTRATION RATE. ESTIMATED GFR IS NOT APPLICABLE FOR DIALYSIS PATIENTS. Chainer ID Carla JOHNSON [id number] 07:06:00* Test Item Value Reference Range Interpretation Comments Magnesium (test code = 28538-3) 2.1 mg/dL 1.6-2.6 VLADIMIR (test code = VLADIMIR) Chainer ID Carla JOHNSON W Lab Interpretation (test code = 48050-9) Normal [facility]osph[facility]2020-[facility] 07:06:00* Test Item Value Reference Range Interpretation Comments Phosphorus (test code = 2777-1) 3.2 mg/dL 2.3-4.7 VLADIMIR (test code = VLADIMIR) Chainer ID Carla JOHNSON W Lab Interpretation (test code = 50755-0) Normal [facility]PHOSPHORUS2020-08-08 07:06:00* Test Item Value Reference Range Interpretation Comments PHOSPHORUS (BEAKER) (test code = 604) 3.2 mg/dL 2.3-4.7 Chainer ID Carla JOHNSON [id number] 07:06:00* Test Item Value Reference Range Interpretation Comments MAGNESIUM (BEAKER) (test code = 627) 2.1 mg/dL 1.6-2.6 Chainer MOY JOHNSON WCBC (Hemogram only)2019-10-07 06:09:00* Test Item Value Reference Range Interpretation Comments WBC (test code = 6690-2) 4.3 3.5- 10.5 K/L RBC (test code = 789-8) 1.96 4.63- 6.08 M/L L MCHC (test code = 786-4) 33.9 32.3- 36.5 GM/DL L Hematocrit (test code = 4544-3) 19.2 % 40.1-51 L MCV (test code = 787-2) 98.0 fL 79-92.2 H MCH (test code = 785-6) 33.2 pg 25.7-32.2 H RDW (test code = 788-0) 17.5 % 11.6-14.4 H Platelets (test code = 777-3) 139 150- 450 K/CU MM L MPV (test code = 08184-3) 9.8 fL 9.4-12.4 nRBC (test code = 413) 0 0- 0 /100 WBC Lab Interpretation (test code = 07620-0) [facility]normal [facility]2019-10-07 06:09:00* Test Item Value Reference Range Interpretation Comments WHITE BLOOD CELL COUNT (BEAKER) (test code = 775) 4.3 K/ L 3.5- 10.5 RED BLOOD CELL COUNT (BEAKER) (test code = 761) 1.96 M/ L 4.63-6 .08 L HEMOGLOBIN (BEAKER) (test code = 410) 6.5 GM/DL 13.7-17.5 L HEMATOCRIT (BEAKER) (test code = 411) 19.2 % 40.1-51.0 L MEAN CORPUSCULAR VOLUME (BEAKER) (test code = 753) 98.0 fL 79. 0-92.2 H MEAN CORPUSCULAR HEMOGLOBIN (BEAKER) (test code = 751) 33.2 pg 25.7-32.2 H MEAN CORPUSCULAR HEMOGLOBIN CONC (BEAKER) (test code = 752) 33.9 GM/DL 32.3-36.5 RED CELL DISTRIBUTION WIDTH (BEAKER) (test code = 412) 17.5 % 11.6-14.4 H PLATELET COUNT (BEAKER) (test code = 756) 139 K/CU MM 150-450 L MEAN PLATELET VOLUME (BEAKER) (test code = 754) 9.8 fL 9.4-12 .4 NUCLEATED RED BLOOD CELLS (BEAKER) (test code = 413) 0 /100 WBC 0 -0 HEMOGLOBIN AND [id number] 05:50:00* Test Item Value Reference Range Interpretation Comments HEMOGLOBIN (BEAKER) (test code = 410) 6.5 GM/DL 13.7-17.5 L HEMATOCRIT (BEAKER) (test code = 411) 19.2 % 40.1-51.0 L Chainer ID - [id number] 03:49:00* Test Item Value Reference Range Interpretation Comments Ferritin (test code = 2276-4) 2196.05 ng/mL 5-275 H VLADIMIR (test code = VLADIMIR) Chainer ID - ANTHONY M Lab Interpretation (test code = 13952-5) [facility]normal [facility]ERR[facility]2020-[facility] 03:49:00* Test Item Value Reference Range Interpretation Comments FERRITIN (BEAKER) (test code = 361) 2196.05 ng/mL 5.00-275.00 H Chainer ID - ANTHONY Oglesby, TIBC, % sat. (without ferritin)2019-10-07 02:48:00* Test Item Value Reference Range Interpretation Comments Iron (test code = 2498-4) 58.0 ug/dL 40-160 TIBC (test code = 2500-7) 150 ug/dL 250-450 L Iron % Saturation (test code = 2502-3) 39 % 20-55 VLADIMIR (test code = VLADIMIR) Chainer ID - ANTHONY M Lab Interpretation (test code = 74897-1) [facility]normal [facility] Hospital[facility], TIBC, % SAT. (WITHOUT FERRITIN)2019-10-07 02:48:00* Test Item Value Reference Range Interpretation Comments IRON (BEAKER) (test code = 547) 58.0 ug/dL 40.0-160.0 TOTAL IRON BINDING CAPACITY (BEAKER) (test code = 769) 150 ug/dL 250-450 L IRON % SATURATION (2) (BEAKER) (test code = 2590) 39 % 20-5 5 Chainer ID - ANTHONY MTROPONIN [id number] 00:19:00* Test Item Value Reference Range Interpretation Comments TROPONIN I (BEAKER) (test code = 397) 0.06 ng/mL 0.00-0.03 H Troponin I (TnI) levels must be interpreted in the context of the presenting sym ptoms and the clinical findings. Elevated TnI levels indicate myocardial damage, but are not specific for ischemic heart disease. Elevated TnI levels are seen in patients with other cardiac conditions (including myocarditis and congestive h eart failure), and slight TnI elevations occur in patients with other conditions , including sepsis, renal failure, acidosis, acute neurological disease, and per sistent tachyarrhythmia.Chainer ID - LACBC with platelet count + automated diff 2019-10-06 20:36:00* Test Item Value Reference Range Interpretation Comments WBC (test code = 6690-2) 4.9 3.5- 10.5 K/L RBC (test code = 789-8) 1.60 4.63- 6.08 M/L L MCHC (test code = 786-4) 33.1 32.3- 36.5 GM/DL LL Hematocrit (test code = 4544-3) 16.3 % 40.1-51 L MCV (test code = 787-2) 101.9 fL 79-92.2 H MCH (test code = 785-6) 33.8 pg 25.7-32.2 H RDW (test code = 788-0) 16.3 % 11.6-14.4 H Platelets (test code = 777-3) 143 150- 450 K/CU MM L MPV (test code = 45468-3) 10.2 fL 9.4-12.4 nRBC (test code = 413) 0 0- 0 /100 WBC % Neutros (test code = 429) 85 % % Lymphs (test code = 430) 10 % % Monos (test code = 431) 4 % % Eos (test code = 432) 1 % % Baso (test code = 437) 0 % # Neutros (test code = 670) 4.18 1.78- 5.38 K/L # Lymphs (test code = 414) 0.47 1.32- 3.57 K/L L # Monos (test code = 415) 0.19 0.30- 0.82 K/L L # Eos (test code = 416) 0.07 0.04- 0.54 K/L # Baso (test code = 417) 0.01 0.01- 0.08 K/L Immature Granulocytes-Relative (test code = 2801) 0 % 0-1 Lab Interpretation (test code = 82895-5) Abnormal [facility] W/PLT COUNT & AUTO [id number] 20:36:00* Test Item Value Reference Range Interpretation Comments WHITE BLOOD CELL COUNT (BEAKER) (test code = 775) 4.9 K/ L 3.5- 10.5 RED BLOOD CELL COUNT (BEAKER) (test code = 761) 1.60 M/ L 4.63-6 .08 L HEMOGLOBIN (BEAKER) (test code = 410) 5.4 GM/DL 13.7-17.5 LL HEMATOCRIT (BEAKER) (test code = 411) 16.3 % 40.1-51.0 L MEAN CORPUSCULAR VOLUME (BEAKER) (test code = 753) 101.9 fL 79. 0-92.2 H MEAN CORPUSCULAR HEMOGLOBIN (BEAKER) (test code = 751) 33.8 pg 25.7-32.2 H MEAN CORPUSCULAR HEMOGLOBIN CONC (BEAKER) (test code = 752) 33.1 GM/DL 32.3-36.5 RED CELL DISTRIBUTION WIDTH (BEAKER) (test code = 412) 16.3 % 11.6-14.4 H PLATELET COUNT (BEAKER) (test code = 756) 143 K/CU MM 150-450 L MEAN PLATELET VOLUME (BEAKER) (test code = 754) 10.2 fL 9.4-12 .4 NUCLEATED RED BLOOD CELLS (BEAKER) (test code = 413) 0 /100 WBC 0 -0 NEUTROPHILS RELATIVE PERCENT (BEAKER) (test code = 429) 85 % LYMPHOCYTES RELATIVE PERCENT (BEAKER) (test code = 430) 10 % MONOCYTES RELATIVE PERCENT (BEAKER) (test code = 431) 4 % EOSINOPHILS RELATIVE PERCENT (BEAKER) (test code = 432) 1 % BASOPHILS RELATIVE PERCENT (BEAKER) (test code = 437) 0 % NEUTROPHILS ABSOLUTE COUNT (BEAKER) (test code = 670) 4.18 K/ L 1.78-5.38 LYMPHOCYTES ABSOLUTE COUNT (BEAKER) (test code = 414) 0.47 K/ L 1.32-3.57 L MONOCYTES ABSOLUTE COUNT (BEAKER) (test code = 415) 0.19 K/ L 0. 30-0.82 L EOSINOPHILS ABSOLUTE COUNT (BEAKER) (test code = 416) 0.07 K/ L 0.04-0.54 BASOPHILS ABSOLUTE COUNT (BEAKER) (test code = 417) 0.01 K/ L 0. 01-0.08 IMMATURE GRANULOCYTES-RELATIVE PERCENT (BEAKER) (test code = 2801) 0 % 0-1 RAD, CHEST, 1 VIEW, NON [id number] 20:24:00Reason for exam:->ABNORMAL LABShould this be performed at the bedside?->YesFINAL REPORT Chest, 1 view. History: Abnormal lab, anemia. Comparison: Plain radiograph the chest dated 02/20/2019.. Findings: The cardiomediastinal silhouette and pulmonary vasculature are within normal limits for a portable exam. The lungs are clear without evidence of consolidation or effusion. The soft tissues and osseous structures are intact. IMPRESSION: No acute c ardiopulmonary abnormality. Signed: Carla Wan Verified Date/T fermín: 10/06/2019 20:24:08 chest 1 view portable / [id number] 20:24:00 Interface, External Ris In - 10/06/2019 8:26 PM CDTFINAL REPORT PATIENT ID: [id number] Chest, 1 view. History: Abnormal lab, anemia. Comparison: Plain radiogr aph the chest dated 02/20/2019.. Findings: The cardiomediastinal silhouette and pulmonary vasculature are within normal limits for a portable exam. The lungs a re clear without evidence of consolidation or effusion. The soft tissues and os seous structures are intact. IMPRESSION: No acute cardiopulmonary abnormality. Signed: Carla Wan Verified Date/Time: 10/06/2019 20:24:08 [facility]TROP[facility] [id number] 20:04:00* Test Item Value Reference Range Interpretation Comments TROPONIN I (CATRINA) (test code = 397) 0.06 ng/mL 0.00-0.03 H Troponin I (TnI) levels must be interpreted in the context of the presenting sym ptoms and the clinical findings. Elevated TnI levels indicate myocardial damage, but are not specific for ischemic heart disease. Elevated TnI levels are seen in patients with other cardiac conditions (including myocarditis and congestive h eart failure), and slight TnI elevations occur in patients with other conditions , including sepsis, renal failure, acidosis, acute neurological disease, and per sistent tachyarrhythmia.Chainer ID - NTPType and screen, automated (BSC and CECs only)2019-10-06 20:01:00* Test Item Value Reference Range Interpretation Comments ABO/RH AUTOMATED (BEAKER) (test code = 2260) O POSITIVE Ab Scrn (test code = 890-4) NEGATIVE [facility] [id number] 19:59:00* Test Item Value Reference Range Interpretation Comments SODIUM (BEAKER) (test code = 381) 136 meq/L 136-145 POTASSIUM (BEAKER) (test code = 379) 3.5 meq/L 3.5-5.1 CHLORIDE (BEAKER) (test code = 382) 95 meq/L 98-107 L CO2 (BEAKER) (test code = 355) 35 meq/L 22-29 H BLOOD UREA NITROGEN (BEAKER) (test code = 354) 18 mg/dL 7-21 CREATININE (BEAKER) (test code = 358) 5.14 mg/dL 0.57-1.25 H GLUCOSE RANDOM (BEAKER) (test code = 652) 139 mg/dL 70-105 H CALCIUM (BEAKER) (test code = 697) 9.1 mg/dL 8.4-10.2 EGFR (BEAKER) (test code = 1092) 12 mL/min/1.73 sq m ESTIMATED GFR IS NOT ACCURATE CREATININE CLEARANCE IN PREDICTING GLOMERULAR FILTRATION RATE. ESTIMATED GFR IS NOT APPLICABLE FOR DIALYSIS PATIENTS. Chainer ID - NTPECG/EKG Yyvickrjdyqihw3326-26-83 19:07:22Placido Maradiaga MD 10/06/2019 7:40 PMECG/EKG InterpretationDate/Time: 10/06/2019 7:34 PMPerformed by: Placido Maradiaga MDAuthorized by: Placido Maradiaga MD The ECG was interpreted by ED physician. The ECG is interpreted as sinus rhythm. Rate is normal rate. Heart rate is 80 BPM.ST segments normal. T waves normal. Brusly is left. ECG reviewed and does not meet STEMI criteria. [facility] HospitalPrepare [id number] 19:34:00* Test Item Value Reference Range Interpretation Comments Unit ABO (test code = 3287442) O Pos UNIT NUMBER (test code = 934-0) [id number] Status (test code = 0971067) WORK IN PROGRESS Blood Bank Product (test code = 2263) RED BLOOD CELLS PRODUCT CODE (test code = 933-2) [id number] CROSSMATCH (test code = 2264) COMPATIBLE [facility] HospitalPOCT-GLU[facility]SE [id number] 16:50:00* Test Item Value Reference Range Interpretation Comments POC-GLUCOSE METER (BEAKER) (test code = 1538) 113 mg/dL 70-110 H : TESTED AT [facility] [address] [facility], [address]: Chainer/Molding Machine Operator ID = [id number] for Sarmad Arias POCT-GLUCOSE [id number] 11:38:00* Test Item Value Reference Range Interpretation Comments POC-GLUCOSE METER (BEAKER) (test code = 1538) 145 mg/dL 70-110 H : TESTED AT [place] [id number] [facility], [address]: Chainer/Molding Machine Operator ID = [id number] for PRINCESS JASON POCT-GLUCOSE [id number] 07:57:00* Test Item Value Reference Range Interpretation Comments POC-GLUCOSE METER (BEAKER) (test code = 1538) 98 mg/dL 70-110 : TESTED AT [facility] [address] [facility], [address]: Chainer/Molding Machine Operator ID = [id number] for PRINCESS JASON BASIC METABOLIC [id number] 07:00:00* Test Item Value Reference Range Interpretation Comments SODIUM (BEAKER) (test code = 381) 133 meq/L 136-145 L POTASSIUM (BEAKER) (test code = 379) 4.7 meq/L 3.5-5.1 CHLORIDE (BEAKER) (test code = 382) 96 meq/L 98-107 L CO2 (BEAKER) (test code = 355) 28 meq/L 22-29 BLOOD UREA NITROGEN (BEAKER) (test code = 354) 61 mg/dL 7-21 H CREATININE (BEAKER) (test code = 358) 9.96 mg/dL 0.57-1.25 H GLUCOSE RANDOM (BEAKER) (test code = 652) 97 mg/dL 70-105 CALCIUM (BEAKER) (test code = 697) 9.6 mg/dL 8.4-10.2 EGFR (BEAKER) (test code = 1092) 5 mL/min/1.73 sq m ESTIMATED GFR IS NOT ACCURATE CREATININE CLEARANCE IN PREDICTING GLOMERULAR FILTRATION RATE. ESTIMATED GFR IS NOT APPLICABLE FOR DIALYSIS PATIENTS. Chainer ID - PIAYA [id number] 06:32:00* Test Item Value Reference Range Interpretation Comments PHOSPHORUS (BEAKER) (test code = 604) 3.3 mg/dL 2.3-4.7 Chainer ID - PIAYA LCBC W/PLT COUNT & AUTO [id number] 05:59:00* Test Item Value Reference Range Interpretation Comments WHITE BLOOD CELL COUNT (BEAKER) (test code = 775) 4.0 K/ L 3.5- 10.5 RED BLOOD CELL COUNT (BEAKER) (test code = 761) 2.34 M/ L 4.63-6 .08 L HEMOGLOBIN (BEAKER) (test code = 410) 7.3 GM/DL 13.7-17.5 L HEMATOCRIT (BEAKER) (test code = 411) 22.2 % 40.1-51.0 L MEAN CORPUSCULAR VOLUME (BEAKER) (test code = 753) 94.9 fL 79. 0-92.2 H MEAN CORPUSCULAR HEMOGLOBIN (BEAKER) (test code = 751) 31.2 pg 25.7-32.2 MEAN CORPUSCULAR HEMOGLOBIN CONC (BEAKER) (test code = 752) 32.9 GM/DL 32.3-36.5 RED CELL DISTRIBUTION WIDTH (BEAKER) (test code = 412) 15.1 % 11.6-14.4 H PLATELET COUNT (BEAKER) (test code = 756) 108 K/CU MM 150-450 L MEAN PLATELET VOLUME (BEAKER) (test code = 754) 9.4 fL 9.4-12 .4 NUCLEATED RED BLOOD CELLS (BEAKER) (test code = 413) 0 /100 WBC 0 -0 NEUTROPHILS RELATIVE PERCENT (BEAKER) (test code = 429) 71 % LYMPHOCYTES RELATIVE PERCENT (BEAKER) (test code = 430) 21 % MONOCYTES RELATIVE PERCENT (BEAKER) (test code = 431) 4 % EOSINOPHILS RELATIVE PERCENT (BEAKER) (test code = 432) 4 % BASOPHILS RELATIVE PERCENT (BEAKER) (test code = 437) 0 % NEUTROPHILS ABSOLUTE COUNT (BEAKER) (test code = 670) 2.82 K/ L 1.78-5.38 LYMPHOCYTES ABSOLUTE COUNT (BEAKER) (test code = 414) 0.82 K/ L 1.32-3.57 L MONOCYTES ABSOLUTE COUNT (BEAKER) (test code = 415) 0.17 K/ L 0. 30-0.82 L EOSINOPHILS ABSOLUTE COUNT (BEAKER) (test code = 416) 0.14 K/ L 0.04-0.54 BASOPHILS ABSOLUTE COUNT (BEAKER) (test code = 417) 0.01 K/ L 0. 01-0.08 IMMATURE GRANULOCYTES-RELATIVE PERCENT (BEAKER) (test code = 2801) 0 % 0-1 POCT-GLUCOSE [id number] 23:38:00* Test Item Value Reference Range Interpretation Comments POC-GLUCOSE METER (BEAKER) (test code = 1538) 121 mg/dL 70-110 H : TESTED AT [address], [address]: Chainer/Molding Machine Operator ID = [id number] for REY, ALEXI POCT-GLUCOSE [id number] 21:38:00* Test Item Value Reference Range Interpretation Comments POC-GLUCOSE METER (BEAKER) (test code = 1538) 131 mg/dL 70-110 H : TESTED AT [address], [address]: Chainer/Molding Machine Operator ID = [id number] for REY, ALEXI POCT-GLUCOSE [id number] 17:04:00* Test Item Value Reference Range Interpretation Comments POC-GLUCOSE METER (BEAKER) (test code = 1538) 116 mg/dL 70-110 H : TESTED AT [address], [address]: Chainer/Molding Machine Operator ID = [id number] for JOEY LEIVA POCT-GLUCOSE [id number] 11:59:00* Test Item Value Reference Range Interpretation Comments POC-GLUCOSE METER (BEAKER) (test code = 1538) 129 mg/dL 70-110 H : TESTED AT [address], [address]: Chainer/Molding Machine Operator ID = [id number] for Sheila Mason POCT-GLUCOSE [id number] 08:57:00* Test Item Value Reference Range Interpretation Comments POC-GLUCOSE METER (BEAKER) (test code = 1538) 137 mg/dL 70-110 H : TESTED AT [address], [address]: Chainer/Molding Machine Operator ID = [id number] for Sheila Mason BASIC METABOLIC [id number] 06:43:00* Test Item Value Reference Range Interpretation Comments SODIUM (BEAKER) (test code = 381) 136 meq/L 136-145 POTASSIUM (BEAKER) (test code = 379) 4.5 meq/L 3.5-5.1 CHLORIDE (BEAKER) (test code = 382) 99 meq/L 98-107 CO2 (BEAKER) (test code = 355) 28 meq/L 22-29 BLOOD UREA NITROGEN (BEAKER) (test code = 354) 50 mg/dL 7-21 H CREATININE (BEAKER) (test code = 358) 8.00 mg/dL 0.57-1.25 H GLUCOSE RANDOM (BEAKER) (test code = 652) 99 mg/dL 70-105 CALCIUM (BEAKER) (test code = 697) 9.3 mg/dL 8.4-10.2 EGFR (BEAKER) (test code = 1092) 7 mL/min/1.73 sq m ESTIMATED GFR IS NOT ACCURATE CREATININE CLEARANCE IN PREDICTING GLOMERULAR FILTRATION RATE. ESTIMATED GFR IS NOT APPLICABLE FOR DIALYSIS PATIENTS. Chainer MOY Carla JACOBS [id number] 06:10:00* Test Item Value Reference Range Interpretation Comments PHOSPHORUS (BEAKER) (test code = 604) 3.3 mg/dL 2.3-4.7 Chainer MOY VIVEROSNATIVIDAD LCBC W/PLT COUNT & AUTO [id number] 05:57:00* Test Item Value Reference Range Interpretation Comments WHITE BLOOD CELL COUNT (BEAKER) (test code = 775) 3.9 K/ L 3.5- 10.5 RED BLOOD CELL COUNT (BEAKER) (test code = 761) 2.23 M/ L 4.63-6 .08 L HEMOGLOBIN (BEAKER) (test code = 410) 7.1 GM/DL 13.7-17.5 L HEMATOCRIT (BEAKER) (test code = 411) 21.3 % 40.1-51.0 L MEAN CORPUSCULAR VOLUME (BEAKER) (test code = 753) 95.5 fL 79. 0-92.2 H MEAN CORPUSCULAR HEMOGLOBIN (BEAKER) (test code = 751) 31.8 pg 25.7-32.2 MEAN CORPUSCULAR HEMOGLOBIN CONC (BEAKER) (test code = 752) 33.3 GM/DL 32.3-36.5 RED CELL DISTRIBUTION WIDTH (BEAKER) (test code = 412) 15.0 % 11.6-14.4 H PLATELET COUNT (BEAKER) (test code = 756) 117 K/CU MM 150-450 L MEAN PLATELET VOLUME (BEAKER) (test code = 754) 9.4 fL 9.4-12 .4 NUCLEATED RED BLOOD CELLS (BEAKER) (test code = 413) 0 /100 WBC 0 -0 NEUTROPHILS RELATIVE PERCENT (BEAKER) (test code = 429) 68 % LYMPHOCYTES RELATIVE PERCENT (BEAKER) (test code = 430) 23 % MONOCYTES RELATIVE PERCENT (BEAKER) (test code = 431) 5 % EOSINOPHILS RELATIVE PERCENT (BEAKER) (test code = 432) 4 % BASOPHILS RELATIVE PERCENT (BEAKER) (test code = 437) 0 % NEUTROPHILS ABSOLUTE COUNT (BEAKER) (test code = 670) 2.68 K/ L 1.78-5.38 LYMPHOCYTES ABSOLUTE COUNT (BEAKER) (test code = 414) 0.89 K/ L 1.32-3.57 L MONOCYTES ABSOLUTE COUNT (BEAKER) (test code = 415) 0.19 K/ L 0. 30-0.82 L EOSINOPHILS ABSOLUTE COUNT (BEAKER) (test code = 416) 0.14 K/ L 0.04-0.54 BASOPHILS ABSOLUTE COUNT (BEAKER) (test code = 417) 0.01 K/ L 0. 01-0.08 IMMATURE GRANULOCYTES-RELATIVE PERCENT (BEAKER) (test code = 2801) 0 % 0-1 POCT-GLUCOSE [id number] 05:55:00* Test Item Value Reference Range Interpretation Comments POC-GLUCOSE METER (BEAKER) (test code = 1538) 99 mg/dL 70-110 : TESTED AT [address], [address]: Chainer/Molding Machine Operator ID = [id number] for REY, ALEXI POCT-GLUCOSE [id number] 23:39:00* Test Item Value Reference Range Interpretation Comments POC-GLUCOSE METER (BEAKER) (test code = 1538) 114 mg/dL 70-110 H : TESTED AT [address], [address]: Chainer/Molding Machine Operator ID = [id number] for REY, ALEXI POCT-GLUCOSE [id number] 15:54:00* Test Item Value Reference Range Interpretation Comments POC-GLUCOSE METER (BEAKER) (test code = 1538) 112 mg/dL 70-110 H : TESTED AT [address], [address]: Chainer/Molding Machine Operator ID = [id number] for ZAN TATE POCT-GLUCOSE [id number] 11:29:00* Test Item Value Reference Range Interpretation Comments POC-GLUCOSE METER (BEAKER) (test code = 1538) 142 mg/dL 70-110 H : TESTED AT [facility] [address] [facility], [address]: Chainer/Molding Machine Operator ID = [id number] for ZAN TATE POCT-GLUCOSE [id number] 08:13:00* Test Item Value Reference Range Interpretation Comments POC-GLUCOSE METER (BEAKER) (test code = 1538) 85 mg/dL 70-110 : TESTED AT [place] [id number] [facility], [address]: Chainer/Molding Machine Operator ID = [id number] for ZAN TATE BASIC METABOLIC [id number] 07:06:00* Test Item Value Reference Range Interpretation Comments SODIUM (BEAKER) (test code = 381) 136 meq/L 136-145 POTASSIUM (BEAKER) (test code = 379) 4.1 meq/L 3.5-5.1 CHLORIDE (BEAKER) (test code = 382) 101 meq/L 98-107 CO2 (BEAKER) (test code = 355) 28 meq/L 22-29 BLOOD UREA NITROGEN (BEAKER) (test code = 354) 32 mg/dL 7-21 H CREATININE (BEAKER) (test code = 358) 5.68 mg/dL 0.57-1.25 H GLUCOSE RANDOM (BEAKER) (test code = 652) 100 mg/dL 70-105 CALCIUM (BEAKER) (test code = 697) 9.1 mg/dL 8.4-10.2 EGFR (BEAKER) (test code = 1092) 10 mL/min/1.73 sq m ESTIMATED GFR IS NOT ACCURATE CREATININE CLEARANCE IN PREDICTING GLOMERULAR FILTRATION RATE. ESTIMATED GFR IS NOT APPLICABLE FOR DIALYSIS PATIENTS. Chainer ID - ANTHONY [id number] 07:03:00* Test Item Value Reference Range Interpretation Comments PHOSPHORUS (BEAKER) (test code = 604) 2.4 mg/dL 2.3-4.7 Chainer ID - ANTHONY [id number] 07:03:00* Test Item Value Reference Range Interpretation Comments MAGNESIUM (BEAKER) (test code = 627) 2.0 mg/dL 1.6-2.6 Chainer MOY - ANTHONY MCBC W/PLT COUNT & AUTO [id number] 06:31:00* Test Item Value Reference Range Interpretation Comments WHITE BLOOD CELL COUNT (BEAKER) (test code = 775) 3.6 K/ L 3.5- 10.5 RED BLOOD CELL COUNT (BEAKER) (test code = 761) 2.26 M/ L 4.63-6 .08 L HEMOGLOBIN (BEAKER) (test code = 410) 7.2 GM/DL 13.7-17.5 L HEMATOCRIT (BEAKER) (test code = 411) 21.5 % 40.1-51.0 L MEAN CORPUSCULAR VOLUME (BEAKER) (test code = 753) 95.1 fL 79. 0-92.2 H MEAN CORPUSCULAR HEMOGLOBIN (BEAKER) (test code = 751) 31.9 pg 25.7-32.2 MEAN CORPUSCULAR HEMOGLOBIN CONC (BEAKER) (test code = 752) 33.5 GM/DL 32.3-36.5 RED CELL DISTRIBUTION WIDTH (BEAKER) (test code = 412) 15.1 % 11.6-14.4 H PLATELET COUNT (BEAKER) (test code = 756) 103 K/CU MM 150-450 L MEAN PLATELET VOLUME (BEAKER) (test code = 754) 9.5 fL 9.4-12 .4 NUCLEATED RED BLOOD CELLS (BEAKER) (test code = 413) 0 /100 WBC 0 -0 NEUTROPHILS RELATIVE PERCENT (BEAKER) (test code = 429) 71 % LYMPHOCYTES RELATIVE PERCENT (BEAKER) (test code = 430) 20 % MONOCYTES RELATIVE PERCENT (BEAKER) (test code = 431) 6 % EOSINOPHILS RELATIVE PERCENT (BEAKER) (test code = 432) 4 % BASOPHILS RELATIVE PERCENT (BEAKER) (test code = 437) 0 % NEUTROPHILS ABSOLUTE COUNT (BEAKER) (test code = 670) 2.55 K/ L 1.78-5.38 LYMPHOCYTES ABSOLUTE COUNT (BEAKER) (test code = 414) 0.70 K/ L 1.32-3.57 L MONOCYTES ABSOLUTE COUNT (BEAKER) (test code = 415) 0.20 K/ L 0. 30-0.82 L EOSINOPHILS ABSOLUTE COUNT (BEAKER) (test code = 416) 0.13 K/ L 0.04-0.54 BASOPHILS ABSOLUTE COUNT (BEAKER) (test code = 417) 0.00 K/ L 0. 01-0.08 L IMMATURE GRANULOCYTES-RELATIVE PERCENT (BEAKER) (test code = 2801) 0 % 0-1 POCT-GLUCOSE [id number] 01:39:00* Test Item Value Reference Range Interpretation Comments POC-GLUCOSE METER (BEAKER) (test code = 1538) 132 mg/dL 70-110 H : TESTED AT [address], [address]: Chainer/Molding Machine Operator ID = [id number] for CHRIS SALDANA HEMODIALYSIS [id number] 23:37:07Arlene Hays RN 08/11/2019 11:37 PMPatient is awake, alert and oriented X 4. Here to be dialyzed for 3.5 hours with UF goal of 2L. The following most updated labs are as follows: Lab [...] arm AV fistula access. One unit PRBC given. Vital signs stable and well within the set parameters. Report given to Jessica BURROWS. Patient was able to tolerate the treatment well. [facility] [id number] 22:48:00* Test Item Value Reference Range Interpretation Comments POC-GLUCOSE METER (BEAKER) (test code = 1538) 112 mg/dL 70-110 H : TESTED AT [address], [address]: Chainer/Molding Machine Operator ID = [id number] for Palmer Carvajal POCT-GLUCOSE [id number] 19:55:00* Test Item Value Reference Range Interpretation Comments POC-GLUCOSE METER (BEAKER) (test code = 1538) 131 mg/dL 70-110 H : TESTED AT [address], [address]: Chainer/Molding Machine Operator ID = [id number] for SALDANA CHRIS POCT-GLUCOSE [id number] 16:17:00* Test Item Value Reference Range Interpretation Comments POC-GLUCOSE METER (BEAKER) (test code = 1538) 159 mg/dL 70-110 H : TESTED AT [address], [address]: Chainer/Molding Machine Operator ID = [id number] for STEELE, EARNEST POCT-GLUCOSE [id number] 12:11:00* Test Item Value Reference Range Interpretation Comments POC-GLUCOSE METER (BEAKER) (test code = 1538) 154 mg/dL 70-110 H : TESTED AT [address], [address]: Chainer/Molding Machine Operator ID = [id number] for STEELE, EARNEST HEMOGLOBIN AND [id number] 08:47:00* Test Item Value Reference Range Interpretation Comments HEMOGLOBIN (BEAKER) (test code = 410) 6.8 GM/DL 13.7-17.5 L HEMATOCRIT (BEAKER) (test code = 411) 20.4 % 40.1-51.0 L Chainer ID - 6000POCT-GLUCOSE [id number] 08:20:00* Test Item Value Reference Range Interpretation Comments POC-GLUCOSE METER (BEAKER) (test code = 1538) 123 mg/dL 70-110 H : TESTED AT [address], [address]: Chainer/Molding Machine Operator ID = [id number] for STEELE, EARNEST CBC W/PLT COUNT & AUTO [id number] 06:21:00* Test Item Value Reference Range Interpretation Comments WHITE BLOOD CELL COUNT (BEAKER) (test code = 775) 3.5 K/ L 3.5- 10.5 RED BLOOD CELL COUNT (BEAKER) (test code = 761) 2.01 M/ L 4.63-6 .08 L HEMOGLOBIN (BEAKER) (test code = 410) 6.5 GM/DL 13.7-17.5 L HEMATOCRIT (BEAKER) (test code = 411) 19.4 % 40.1-51.0 L MEAN CORPUSCULAR VOLUME (BEAKER) (test code = 753) 96.5 fL 79. 0-92.2 H MEAN CORPUSCULAR HEMOGLOBIN (BEAKER) (test code = 751) 32.3 pg 25.7-32.2 H MEAN CORPUSCULAR HEMOGLOBIN CONC (BEAKER) (test code = 752) 33.5 GM/DL 32.3-36.5 RED CELL DISTRIBUTION WIDTH (BEAKER) (test code = 412) 14.7 % 11.6-14.4 H PLATELET COUNT (BEAKER) (test code = 756) 91 K/CU MM 150-450 L MEAN PLATELET VOLUME (BEAKER) (test code = 754) 9.8 fL 9.4-12 .4 NUCLEATED RED BLOOD CELLS (BEAKER) (test code = 413) 0 /100 WBC 0 -0 NEUTROPHILS RELATIVE PERCENT (BEAKER) (test code = 429) 74 % LYMPHOCYTES RELATIVE PERCENT (BEAKER) (test code = 430) 17 % MONOCYTES RELATIVE PERCENT (BEAKER) (test code = 431) 5 % EOSINOPHILS RELATIVE PERCENT (BEAKER) (test code = 432) 3 % BASOPHILS RELATIVE PERCENT (BEAKER) (test code = 437) 0 % NEUTROPHILS ABSOLUTE COUNT (BEAKER) (test code = 670) 2.58 K/ L 1.78-5.38 LYMPHOCYTES ABSOLUTE COUNT (BEAKER) (test code = 414) 0.60 K/ L 1.32-3.57 L MONOCYTES ABSOLUTE COUNT (BEAKER) (test code = 415) 0.18 K/ L 0. 30-0.82 L EOSINOPHILS ABSOLUTE COUNT (BEAKER) (test code = 416) 0.10 K/ L 0.04-0.54 BASOPHILS ABSOLUTE COUNT (BEAKER) (test code = 417) 0.01 K/ L 0. 01-0.08 IMMATURE GRANULOCYTES-RELATIVE PERCENT (BEAKER) (test code = 2801) 1 % 0-1 BASIC METABOLIC [id number] 05:44:00* Test Item Value Reference Range Interpretation Comments SODIUM (BEAKER) (test code = 381) 134 meq/L 136-145 L POTASSIUM (BEAKER) (test code = 379) 4.3 meq/L 3.5-5.1 CHLORIDE (BEAKER) (test code = 382) 97 meq/L 98-107 L CO2 (BEAKER) (test code = 355) 29 meq/L 22-29 BLOOD UREA NITROGEN (BEAKER) (test code = 354) 67 mg/dL 7-21 H CREATININE (BEAKER) (test code = 358) 8.87 mg/dL 0.57-1.25 H GLUCOSE RANDOM (BEAKER) (test code = 652) 109 mg/dL 70-105 H CALCIUM (BEAKER) (test code = 697) 9.4 mg/dL 8.4-10.2 EGFR (BEAKER) (test code = 1092) 6 mL/min/1.73 sq m ESTIMATED GFR IS NOT ACCURATE CREATININE CLEARANCE IN PREDICTING GLOMERULAR FILTRATION RATE. ESTIMATED GFR IS NOT APPLICABLE FOR DIALYSIS PATIENTS. Chainer ID - ANTHONY [id number] 05:41:00* Test Item Value Reference Range Interpretation Comments PHOSPHORUS (BEAKER) (test code = 604) 3.2 mg/dL 2.3-4.7 Chainer ID - ANTHONY [id number] 05:41:00* Test Item Value Reference Range Interpretation Comments MAGNESIUM (BEAKER) (test code = 627) 2.1 mg/dL 1.6-2.6 Chainer ID - ANTHONY MRAD, FOOT, MIN 3 VIEWS, [id number] 21:05:00Reason for exam:->r/o fractureFINAL REPORT CLINICAL HISTORY: Postop COMPARISON: 07/20/2019 FINDINGS: [...] no unexpected radiopaque foreign body. Signed: Ar Saldanaeport Verified Date/Time: 08/10/2019 21:05:47 foot 3 views [id number] 21:05:00Interface, External Ris In - 08/10/2019 9:08 PM CDTFINAL REPORT CLINICAL HISTORY: Postop COMPARISON: 07/20/2019 FINDINGS: [...] fourth metatarsal. No acute fracture is identified. Th ere is no unexpected radiopaque foreign body. Signed: Ar Saldana MDReport Mehreen ified Date/Time: 08/10/2019 21:05:47 [facility] [id number] 20:23:00* Test Item Value Reference Range Interpretation Comments POC-GLUCOSE METER (BEAKER) (test code = 1538) 133 mg/dL 70-110 H : TESTED AT [place] [id number] [facility], [address]: Chainer/Molding Machine Operator ID = [id number] for CHRIS SALDANA [id number] 20:09:00* Test Item Value Reference Range Interpretation Comments FERRITIN (BEAKER) (test code = 361) 2372.11 ng/mL 5.00-275.00 H Chainer ID - BSPOCT-GLUCOSE [id number] 17:06:00* Test Item Value Reference Range Interpretation Comments POC-GLUCOSE METER (BEAKER) (test code = 1538) 138 mg/dL 70-110 H : TESTED AT [facility] [address] [facility], [address]: Chainer/Molding Machine Operator ID = [id number] for ERICKSON, JUCEL BILLIE POCT-GLUCOSE [id number] 12:21:00* Test Item Value Reference Range Interpretation Comments POC-GLUCOSE METER (BEAKER) (test code = 1538) 129 mg/dL 70-110 H : TESTED AT [facility] [address] [facility], [address]: Chainer/Molding Machine Operator ID = [id number] for ERICKSON, JUCEL BILLIE POCT-GLUCOSE [id number] 08:00:00* Test Item Value Reference Range Interpretation Comments POC-GLUCOSE METER (BEAKER) (test code = 1538) 104 mg/dL 70-110 : TESTED AT [facility] [address] [facility], [address]: Chainer/Molding Machine Operator ID = [id number] for GAVIN ERICKSON Vitamin B12 and [id number] 07:22:00* Test Item Value Reference Range Interpretation Comments Vitamin B12 (test code = 2132-9) 484 pg/mL 213-816 Folate (test code = 2284-8) 11.60 ng/mL >=7.00 VLADIMIR (test code = VLADIMIR) Chainer ID - REYNALDO L Lab Interpretation (test code = 32749-0) [facility] [id number] 07:22:00* Test Item Value Reference Range Interpretation Comments VITAMIN B12 (BEAKER) (test code = 774) 484 pg/mL 213-816 FOLATE (BEAKER) (test code = 362) 11.60 ng/mL >=7.00 Chainer ID - REYNALDO ROWELL, TIBC, % SAT. (WITHOUT FERRITIN)2019-08-10 06:55:00* Test Item Value Reference Range Interpretation Comments IRON (BEAKER) (test code = 547) 126.0 ug/dL 40.0-160.0 TOTAL IRON BINDING CAPACITY (BEAKER) (test code = 769) 125 ug/dL 250-450 L IRON % SATURATION (2) (BEAKER) (test code = 2590) 101 % 20-5 5 H Chainer ID - REYNALDO [id number] 06:48:00* Test Item Value Reference Range Interpretation Comments PHOSPHORUS (BEAKER) (test code = 604) 3.4 mg/dL 2.3-4.7 Chainer ID - REYNALDO [id number] 06:48:00* Test Item Value Reference Range Interpretation Comments MAGNESIUM (BEAKER) (test code = 627) 2.2 mg/dL 1.6-2.6 Chainer ID - REYNALDO LBASIC METABOLIC [id number] 06:48:00* Test Item Value Reference Range Interpretation Comments SODIUM (BEAKER) (test code = 381) 136 meq/L 136-145 POTASSIUM (BEAKER) (test code = 379) 4.1 meq/L 3.5-5.1 CHLORIDE (BEAKER) (test code = 382) 98 meq/L 98-107 CO2 (BEAKER) (test code = 355) 31 meq/L 22-29 H BLOOD UREA NITROGEN (BEAKER) (test code = 354) 38 mg/dL 7-21 H CREATININE (BEAKER) (test code = 358) 6.55 mg/dL 0.57-1.25 H GLUCOSE RANDOM (BEAKER) (test code = 652) 127 mg/dL 70-105 H CALCIUM (BEAKER) (test code = 697) 9.1 mg/dL 8.4-10.2 EGFR (BEAKER) (test code = 1092) 9 mL/min/1.73 sq m ESTIMATED GFR IS NOT ACCURATE CREATININE CLEARANCE IN PREDICTING GLOMERULAR FILTRATION RATE. ESTIMATED GFR IS NOT APPLICABLE FOR DIALYSIS PATIENTS. Chainer ID - PIAYA LCBC W/PLT COUNT & AUTO [id number] 06:26:00* Test Item Value Reference Range Interpretation Comments WHITE BLOOD CELL COUNT (BEAKER) (test code = 775) 4.3 K/ L 3.5- 10.5 RED BLOOD CELL COUNT (BEAKER) (test code = 761) 2.50 M/ L 4.63-6 .08 L HEMOGLOBIN (BEAKER) (test code = 410) 8.1 GM/DL 13.7-17.5 L HEMATOCRIT (BEAKER) (test code = 411) 24.2 % 40.1-51.0 L MEAN CORPUSCULAR VOLUME (BEAKER) (test code = 753) 96.8 fL 79. 0-92.2 H MEAN CORPUSCULAR HEMOGLOBIN (BEAKER) (test code = 751) 32.4 pg 25.7-32.2 H MEAN CORPUSCULAR HEMOGLOBIN CONC (BEAKER) (test code = 752) 33.5 GM/DL 32.3-36.5 RED CELL DISTRIBUTION WIDTH (BEAKER) (test code = 412) 14.6 % 11.6-14.4 H PLATELET COUNT (BEAKER) (test code = 756) 106 K/CU MM 150-450 L MEAN PLATELET VOLUME (BEAKER) (test code = 754) 10.0 fL 9.4-12 .4 NUCLEATED RED BLOOD CELLS (BEAKER) (test code = 413) 0 /100 WBC 0 -0 NEUTROPHILS RELATIVE PERCENT (BEAKER) (test code = 429) 72 % LYMPHOCYTES RELATIVE PERCENT (BEAKER) (test code = 430) 19 % MONOCYTES RELATIVE PERCENT (BEAKER) (test code = 431) 6 % EOSINOPHILS RELATIVE PERCENT (BEAKER) (test code = 432) 3 % BASOPHILS RELATIVE PERCENT (BEAKER) (test code = 437) 0 % NEUTROPHILS ABSOLUTE COUNT (BEAKER) (test code = 670) 3.12 K/ L 1.78-5.38 LYMPHOCYTES ABSOLUTE COUNT (BEAKER) (test code = 414) 0.84 K/ L 1.32-3.57 L MONOCYTES ABSOLUTE COUNT (BEAKER) (test code = 415) 0.24 K/ L 0. 30-0.82 L EOSINOPHILS ABSOLUTE COUNT (BEAKER) (test code = 416) 0.12 K/ L 0.04-0.54 BASOPHILS ABSOLUTE COUNT (BEAKER) (test code = 417) 0.01 K/ L 0. 01-0.08 IMMATURE GRANULOCYTES-RELATIVE PERCENT (BEAKER) (test code = 2801) 0 % 0-1 POCT-GLUCOSE [id number] 21:16:00* Test Item Value Reference Range Interpretation Comments POC-GLUCOSE METER (BEAKER) (test code = 1538) 163 mg/dL 70-110 H : TESTED AT [facility] [address] [facility], [address]: Chainer/Molding Machine Operator ID = [id number] for JARON MENDENHALL Hepatitis B surface [id number] 17:30:00* Test Item Value Reference Range Interpretation Comments HBsAg Screen (test code = 5195-3) Nonreactive Nonreactive VLADIMIR (test code = VLADIMIR) Specimen is considered negative for HBsAg. Lab Interpretation (test code = 77967-0) [facility] [id number] 17:30:00* Test Item Value Reference Range Interpretation Comments HEPATITIS B SURFACE ANTIGEN (2) (BEAKER) (test code = 2585) Nonreactive Nonreactive Specimen is considered negative for HBsAg.POCT-GLUCOSE [id number] 16:31:00 * Test Item Value Reference Range Interpretation Comments POC-GLUCOSE METER (BEAKER) (test code = 1538) 159 mg/dL 70-110 H : TESTED AT [place] [id number] [facility], [address]: Chainer/Molding Machine Operator ID = [id number] for MICHAEL CANNON Hemoglobin [id number] 15:04:00* Test Item Value Reference Range Interpretation Comments Hemoglobin A1C (test code = 4548-4) 4.8 % 4.3-6.1 Lab Interpretation (test code = 73055-4) [id number]:04:00* Test Item Value Reference Range Interpretation Comments HEMOGLOBIN A1C (BEAKER) (test code = 368) 4.8 % 4.3-6.1 POCT-GLUCOSE [id number] 12:48:00* Test Item Value Reference Range Interpretation Comments POC-GLUCOSE METER (BEAKER) (test code = 1538) 161 mg/dL 70-110 H : TESTED AT [address], [address]: Chainer/Molding Machine Operator ID = [id number] for MICHAEL CANNON POCT-GLUCOSE [id number] 09:23:00* Test Item Value Reference Range Interpretation Comments POC-GLUCOSE METER (BEAKER) (test code = 1538) 132 mg/dL 70-110 H : TESTED AT [address], [address]: Chainer/Molding Machine Operator ID = [id number] for MICHAEL CANNON BASIC METABOLIC [id number] 06:29:00* Test Item Value Reference Range Interpretation Comments SODIUM (BEAKER) (test code = 381) 133 meq/L 136-145 L POTASSIUM (BEAKER) (test code = 379) 4.6 meq/L 3.5-5.1 CHLORIDE (BEAKER) (test code = 382) 95 meq/L 98-107 L CO2 (BEAKER) (test code = 355) 30 meq/L 22-29 H BLOOD UREA NITROGEN (BEAKER) (test code = 354) 56 mg/dL 7-21 H CREATININE (BEAKER) (test code = 358) 8.89 mg/dL 0.57-1.25 H GLUCOSE RANDOM (BEAKER) (test code = 652) 98 mg/dL 70-105 CALCIUM (BEAKER) (test code = 697) 9.4 mg/dL 8.4-10.2 EGFR (BEAKER) (test code = 1092) 6 mL/min/1.73 sq m ESTIMATED GFR IS NOT ACCURATE CREATININE CLEARANCE IN PREDICTING GLOMERULAR FILTRATION RATE. ESTIMATED GFR IS NOT APPLICABLE FOR DIALYSIS PATIENTS. Chainer MOY CRUZ epatic function [id number] 06:14:00* Test Item Value Reference Range Interpretation Comments Protein, Total (test code = 2885-2) 6.3 6.0- 8.3 gm/dL Albumin (test code = 73488-7) 3.8 g/dL 3.5-5 Total Bilirubin (test code = 1974-2) 0.9 mg/dL 0.2-1.2 Bilirubin, Direct (test code = 1967-7) 0.4 mg/dL 0.1-0.5 Alkaline Phosphatase (test code = 6768-6) 66 U/L 40-150 AST (test code = 1920-8) 14 U/L 5-34 ALT (test code = 1742-6) 6 U/L 6-55 VLADIMIR (test code = VLADIMIR) Chainer MOY Reddy Lab Interpretation (test code = 60250-5) Normal [id number] 06:14:00* Test Item Value Reference Range Interpretation Comments PHOSPHORUS (BEAKER) (test code = 604) 3.8 mg/dL 2.3-4.7 Chainer MOY CRUZ [id number] 06:14:00* Test Item Value Reference Range Interpretation Comments MAGNESIUM (BEAKER) (test code = 627) 2.3 mg/dL 1.6-2.6 Chainer ID Carla CRUZ EPATIC FUNCTION [id number] 06:14:00* Test Item Value Reference Range Interpretation Comments TOTAL PROTEIN (BEAKER) (test code = 770) 6.3 gm/dL 6.0-8.3 ALBUMIN (BEAKER) (test code = 1145) 3.8 g/dL 3.5-5.0 BILIRUBIN TOTAL (BEAKER) (test code = 377) 0.9 mg/dL 0.2-1.2 BILIRUBIN DIRECT (BEAKER) (test code = 706) 0.4 mg/dL 0.1-0.5 ALKALINE PHOSPHATASE (BEAKER) (test code = 346) 66 U/L 40-150 AST (SGOT) (BEAKER) (test code = 353) 14 U/L 5-34 ALT (SGPT) (BEAKER) (test code = 347) 6 U/L 6-55 Chainer ID - ANTHONY [facility] W/PLT COUNT & AUTO [id number] 05:50:00* Test Item Value Reference Range Interpretation Comments WHITE BLOOD CELL COUNT (BEAKER) (test code = 775) 3.9 K/ L 3.5- 10.5 RED BLOOD CELL COUNT (BEAKER) (test code = 761) 2.72 M/ L 4.63-6 .08 L HEMOGLOBIN (BEAKER) (test code = 410) 8.6 GM/DL 13.7-17.5 L HEMATOCRIT (BEAKER) (test code = 411) 25.9 % 40.1-51.0 L MEAN CORPUSCULAR VOLUME (BEAKER) (test code = 753) 95.2 fL 79. 0-92.2 H MEAN CORPUSCULAR HEMOGLOBIN (BEAKER) (test code = 751) 31.6 pg 25.7-32.2 MEAN CORPUSCULAR HEMOGLOBIN CONC (BEAKER) (test code = 752) 33.2 GM/DL 32.3-36.5 RED CELL DISTRIBUTION WIDTH (BEAKER) (test code = 412) 14.7 % 11.6-14.4 H PLATELET COUNT (BEAKER) (test code = 756) 89 K/CU MM 150-450 L MEAN PLATELET VOLUME (BEAKER) (test code = 754) 10.2 fL 9.4-12 .4 NUCLEATED RED BLOOD CELLS (BEAKER) (test code = 413) 0 /100 WBC 0 -0 NEUTROPHILS RELATIVE PERCENT (BEAKER) (test code = 429) 67 % LYMPHOCYTES RELATIVE PERCENT (BEAKER) (test code = 430) 23 % MONOCYTES RELATIVE PERCENT (BEAKER) (test code = 431) 5 % EOSINOPHILS RELATIVE PERCENT (BEAKER) (test code = 432) 4 % BASOPHILS RELATIVE PERCENT (BEAKER) (test code = 437) 0 % NEUTROPHILS ABSOLUTE COUNT (BEAKER) (test code = 670) 2.60 K/ L 1.78-5.38 LYMPHOCYTES ABSOLUTE COUNT (BEAKER) (test code = 414) 0.87 K/ L 1.32-3.57 L MONOCYTES ABSOLUTE COUNT (BEAKER) (test code = 415) 0.21 K/ L 0. 30-0.82 L EOSINOPHILS ABSOLUTE COUNT (BEAKER) (test code = 416) 0.17 K/ L 0.04-0.54 BASOPHILS ABSOLUTE COUNT (BEAKER) (test code = 417) 0.01 K/ L 0. 01-0.08 IMMATURE GRANULOCYTES-RELATIVE PERCENT (BEAKER) (test code = 2801) 0 % 0-1 POCT-GLUCOSE [id number] 20:45:00* Test Item Value Reference Range Interpretation Comments POC-GLUCOSE METER (BEAKER) (test code = 1538) 141 mg/dL 70-110 H : TESTED AT [facility] [address] [facility], [address]: Chainer/Molding Machine Operator ID = [id number] for LES CHRIS POCT-GLUCOSE [id number] 17:33:00* Test Item Value Reference Range Interpretation Comments POC-GLUCOSE METER (BEAKER) (test code = 1538) 175 mg/dL 70-110 H : TESTED AT [address], [address]: Chainer/Molding Machine Operator ID = [id number] for Nicole Barth Lipid [id number] 15:46:00* Test Item Value Reference Range Interpretation Comments Triglycerides (test code = 2571-8) 54 mg/dL Cholesterol (test code = 2093-3) 132 mg/dL HDL (test code = 2085-9) 52 mg/dL LDL Calculated (test code = 05344-3) 69 mg/dL VLADIMIR (test code = VLADIMIR) Triglyceride Reference Range : Low Risk <150 Borderline 150-199 High Risk 200-499 Very High Risk >=500 Cholesterol Reference Range: Low Risk <200 Borderline 200-239 High Risk >240 HDL Cholesterol Reference Range: Low Risk >=60 High Risk <40 LDL Cholesterol Reference Range: Optimal <100 Near Optimal 100-129 Borderline 130-159 High 160-189 Very High >=190 Chainer [facility] [id number] 15:46:00* Test Item Value Reference Range Interpretation Comments TRIGLYCERIDES (BEAKER) (test code = 540) 54 mg/dL CHOLESTEROL (BEAKER) (test code = 631) 132 mg/dL HDL CHOLESTEROL (BEAKER) (test code = 976) 52 mg/dL LDL CHOLESTEROL CALCULATED (BEAKER) (test code = 633) 69 mg/dL Triglyceride Reference Range: Low Risk <150 Borderline 150-199 High Risk 200-499 Very High Risk >=500Cholesterol Reference Range: Low Risk <200 Borderline 200-239 High Risk >240HDL Cholesterol Reference Range: Low Risk >=60 High Risk <40LDL Cholesterol Reference Range: Optimal <100 Near Optimal 100-129 Borderline 130-159 High 160-189 Very High >=190 Chainer ID - BSPOCT-GLUCOSE [id number] 14:11:00* Test Item Value Reference Range Interpretation Comments POC-GLUCOSE METER (BEAKER) (test code = 1538) 113 mg/dL 70-110 H : TESTED AT [facility] [address] [facility], [address]: Chainer/Molding Machine Operator ID = [id number] for NICOLE IRWIN POCT-GLUCOSE [id number] 11:55:00* Test Item Value Reference Range Interpretation Comments POC-GLUCOSE METER (BEAKER) (test code = 1538) 117 mg/dL 70-110 H : TESTED AT [place] [id number] [facility], [address]: Chainer/Molding Machine Operator ID = [id number] for TARA DOWNS BASIC METABOLIC [id number] 08:56:00* Test Item Value Reference Range Interpretation Comments SODIUM (BEAKER) (test code = 381) 135 meq/L 136-145 L POTASSIUM (BEAKER) (test code = 379) 4.6 meq/L 3.5-5.1 CHLORIDE (BEAKER) (test code = 382) 95 meq/L 98-107 L CO2 (BEAKER) (test code = 355) 31 meq/L 22-29 H BLOOD UREA NITROGEN (BEAKER) (test code = 354) 42 mg/dL 7-21 H CREATININE (BEAKER) (test code = 358) 7.15 mg/dL 0.57-1.25 H GLUCOSE RANDOM (BEAKER) (test code = 652) 95 mg/dL 70-105 CALCIUM (BEAKER) (test code = 697) 9.6 mg/dL 8.4-10.2 EGFR (BEAKER) (test code = 1092) 8 mL/min/1.73 sq m ESTIMATED GFR IS NOT ACCURATE CREATININE CLEARANCE IN PREDICTING GLOMERULAR FILTRATION RATE. ESTIMATED GFR IS NOT APPLICABLE FOR DIALYSIS PATIENTS. Chainer ID - ANTHONY MPOCT-GLUCOSE [id number] 07:59:00* Test Item Value Reference Range Interpretation Comments POC-GLUCOSE METER (BEAKER) (test code = 1538) 90 mg/dL 70-110 : TESTED AT [facility] [address] [facility], [address]: Chainer/Molding Machine Operator ID = [id number] for KIMO GEE SARS-COV2/RT-PCR ([facility])2019-08-04 16:37:00* Test Item Value Reference Range Interpretation Comments SARS-COV2/RT-PCR (test code = 5613530) Negative Not Detected, N egative SARS-COV-2 PERFORMING LAB (test code = 2042143) CPL [id number] 10:32:00* Test Item Value Reference Range Interpretation Comments Potassium (test code = 2823-3) 4.3 meq/L 3.5-5.1 VLADIMIR (test code = VLADIMIR) Chainer ID - [id number] Lab Interpretation (test code = 49817-5) [facility] 10:32:00* Test Item Value Reference Range Interpretation Comments POTASSIUM (BEAKER) (test code = 379) 4.3 meq/L 3.5-5.1 Chainer ID - [id number] 10:16:00* Test Item Value Reference Range Interpretation Comments Hemoglobin (test code = 786-4) 9.0 13.7- 17.5 GM/DL L VLADIMIR (test code = VLADIMIR) Chainer ID - [id number] Lab Interpretation (test code = 62428-0) Abnormal [facility]2020-[facility] 10:16:00* Test Item Value Reference Range Interpretation Comments HEMOGLOBIN (BEAKER) (test code = 410) 9.0 GM/DL 13.7-17.5 L Chainer ID - [id number], FOOT, MIN 3 VIEWS, [id number] 14:25:00Left sideReason for Exam:->foot pain,leftFINAL REPORT LEFT FOOT X-RAY - THREE VIEWS HISTORY: foot pain,left COMPARISON: Left foot x-ray 03/08/2019, 01/24/2019 FINDINGS:Bones:No acute displaced fracture. 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 Joints:Severe degenerative changes of the third metatarsophalangeal joint. Soft tissues:Interval progressive healing of the calcaneal ulcer. There is mild persistent diffuse soft tissue swelling along the plantar aspect of the left foot. Diffuse vascular calcifications. Interval placement of a long tubular stent/graft. IMPRESSION: Interval progressive healing of the calcaneal ulcer. Otherwise, stable appearance of the left foot. Signed: Cielo Thompson MDReport Verified Date/Time: 07/20/2019 14:25:27 Reading Location: [facility] Reading Room [address] [place] [address] -GLUCOSE [id number] 11:51:00* Test Item Value Reference Range Interpretation Comments POC-GLUCOSE METER (BEAKER) (test code = 1538) 124 mg/dL 70-110 H : TESTED AT [facility] [address] [facility], [address]: Chainer/Molding Machine Operator ID = [id number] for Jarek Kirkland POCT-GLUCOSE [id number] 07:27:00* Test Item Value Reference Range Interpretation Comments POC-GLUCOSE METER (BEAKER) (test code = 1538) 122 mg/dL 70-110 H : TESTED AT [place] [id number] [facility], [address]: Chainer/Molding Machine Operator ID = [id number] for ROSI KENNEDY BASIC METABOLIC [id number] 07:22:00* Test Item Value Reference Range Interpretation Comments SODIUM (BEAKER) (test code = 381) 134 meq/L 136-145 L POTASSIUM (BEAKER) (test code = 379) 4.2 meq/L 3.5-5.1 Specimen slightly hemolyzed CHLORIDE (BEAKER) (test code = 382) 95 meq/L 98-107 L CO2 (BEAKER) (test code = 355) 30 meq/L 22-29 H BLOOD UREA NITROGEN (BEAKER) (test code = 354) 24 mg/dL 7-21 H CREATININE (BEAKER) (test code = 358) 5.30 mg/dL 0.57-1.25 H Specimen slightly hemolyzed GLUCOSE RANDOM (BEAKER) (test code = 652) 121 mg/dL 70-105 H CALCIUM (BEAKER) (test code = 697) 9.3 mg/dL 8.4-10.2 EGFR (BEAKER) (test code = 1092) 11 mL/min/1.73 sq m ESTIMATED GFR IS NOT ACCURATE CREATININE CLEARANCE IN PREDICTING GLOMERULAR FILTRATION RATE. ESTIMATED GFR IS NOT APPLICABLE FOR DIALYSIS PATIENTS. Chainer ID - ANTHONY [facility] (HEMOGRAM ONLY)2019-04-08 06:25:00* Test Item Value Reference Range Interpretation Comments WHITE BLOOD CELL COUNT (BEAKER) (test code = 775) 4.9 K/ L 3.5- 10.5 RED BLOOD CELL COUNT (BEAKER) (test code = 761) 2.57 M/ L 4.63-6 .08 L HEMOGLOBIN (BEAKER) (test code = 410) 7.8 GM/DL 13.7-17.5 L HEMATOCRIT (BEAKER) (test code = 411) 23.9 % 40.1-51.0 L MEAN CORPUSCULAR VOLUME (BEAKER) (test code = 753) 93.0 fL 79. 0-92.2 H MEAN CORPUSCULAR HEMOGLOBIN (BEAKER) (test code = 751) 30.4 pg 25.7-32.2 MEAN CORPUSCULAR HEMOGLOBIN CONC (BEAKER) (test code = 752) 32.6 GM/DL 32.3-36.5 RED CELL DISTRIBUTION WIDTH (BEAKER) (test code = 412) 14.1 % 11.6-14.4 PLATELET COUNT (BEAKER) (test code = 756) 142 K/CU MM 150-450 L MEAN PLATELET VOLUME (BEAKER) (test code = 754) 10.3 fL 9.4-12 .4 NUCLEATED RED BLOOD CELLS (BEAKER) (test code = 413) 0 /100 WBC 0 -0 POCT-GLUCOSE [id number] 23:01:00* Test Item Value Reference Range Interpretation Comments POC-GLUCOSE METER (BEAKER) (test code = 1538) 130 mg/dL 70-110 H : TESTED AT [facility] [address] [place] [address], [address]: Chainer/Molding Machine Operator ID = [id number] for GONZALO SANDOVAL POCT-GLUCOSE [id number] 16:27:00* Test Item Value Reference Range Interpretation Comments POC-GLUCOSE METER (BEAKER) (test code = 1538) 106 mg/dL 70-110 : TESTED AT [address], [address]: Chainer/Molding Machine Operator ID = [id number] for Jarek Kirkland POC ACTIVATED CLOTTING [id number] 11:13:00* Test Item Value Reference Range Interpretation Comments Activated Clotting Time (test code = 441) 257 sec Reference Range: 74-137 seconds, Baseline/TESTED AT [place] [id number] [id number] 11:13:00* Test Item Value Reference Range Interpretation Comments ACTIVATED CLOTTING TIME (BEAKER) (test code = 441) 257 sec Reference Range: 74-137 seconds, Baseline/TESTED AT [place] [address] [id number] 11:13:00* Test Item Value Reference Range Interpretation Comments ACTIVATED CLOTTING TIME (BEAKER) (test code = 441) 213 sec Reference Range: 74-137 seconds, Baseline/TESTED AT [place] [address] [id number] 10:26:00* Test Item Value Reference Range Interpretation Comments ACTIVATED CLOTTING TIME (BEAKER) (test code = 441) 246 sec Reference Range: 74-137 seconds, Baseline/TESTED AT [place] [address] [id number] 09:57:00* Test Item Value Reference Range Interpretation Comments ACTIVATED CLOTTING TIME (BEAKER) (test code = 441) 252 sec Reference Range: 74-137 seconds, Baseline/TESTED AT [place] [address] [id number] 09:42:00* Test Item Value Reference Range Interpretation Comments ACTIVATED CLOTTING TIME (BEAKER) (test code = 441) 241 sec Reference Range: 74-137 seconds, Baseline/TESTED AT [place] [address] BASIC METABOLIC [id number] 07:33:00* Test Item Value Reference Range Interpretation Comments SODIUM (BEAKER) (test code = 381) 136 meq/L 136-145 POTASSIUM (BEAKER) (test code = 379) 3.8 meq/L 3.5-5.1 CHLORIDE (BEAKER) (test code = 382) 97 meq/L 98-107 L CO2 (BEAKER) (test code = 355) 33 meq/L 22-29 H BLOOD UREA NITROGEN (BEAKER) (test code = 354) 16 mg/dL 7-21 CREATININE (BEAKER) (test code = 358) 3.86 mg/dL 0.57-1.25 H GLUCOSE RANDOM (BEAKER) (test code = 652) 126 mg/dL 70-105 H CALCIUM (BEAKER) (test code = 697) 9.4 mg/dL 8.4-10.2 EGFR (BEAKER) (test code = 1092) 16 mL/min/1.73 sq m ESTIMATED GFR IS NOT ACCURATE CREATININE CLEARANCE IN PREDICTING GLOMERULAR FILTRATION RATE. ESTIMATED GFR IS NOT APPLICABLE FOR DIALYSIS PATIENTS. Chainer ID - ANTHONY [facility] W/PLT COUNT & AUTO [id number] 07:08:00* Test Item Value Reference Range Interpretation Comments WHITE BLOOD CELL COUNT (BEAKER) (test code = 775) 4.1 K/ L 3.5- 10.5 RED BLOOD CELL COUNT (BEAKER) (test code = 761) 2.58 M/ L 4.63-6 .08 L HEMOGLOBIN (BEAKER) (test code = 410) 7.9 GM/DL 13.7-17.5 L HEMATOCRIT (BEAKER) (test code = 411) 24.3 % 40.1-51.0 L MEAN CORPUSCULAR VOLUME (BEAKER) (test code = 753) 94.2 fL 79. 0-92.2 H MEAN CORPUSCULAR HEMOGLOBIN (BEAKER) (test code = 751) 30.6 pg 25.7-32.2 MEAN CORPUSCULAR HEMOGLOBIN CONC (BEAKER) (test code = 752) 32.5 GM/DL 32.3-36.5 RED CELL DISTRIBUTION WIDTH (BEAKER) (test code = 412) 14.1 % 11.6-14.4 PLATELET COUNT (BEAKER) (test code = 756) 136 K/CU MM 150-450 L MEAN PLATELET VOLUME (BEAKER) (test code = 754) 9.9 fL 9.4-12 .4 NUCLEATED RED BLOOD CELLS (BEAKER) (test code = 413) 0 /100 WBC 0 -0 NEUTROPHILS RELATIVE PERCENT (BEAKER) (test code = 429) 73 % LYMPHOCYTES RELATIVE PERCENT (BEAKER) (test code = 430) 16 % MONOCYTES RELATIVE PERCENT (BEAKER) (test code = 431) 6 % EOSINOPHILS RELATIVE PERCENT (BEAKER) (test code = 432) 5 % BASOPHILS RELATIVE PERCENT (BEAKER) (test code = 437) 1 % NEUTROPHILS ABSOLUTE COUNT (BEAKER) (test code = 670) 2.95 K/ L 1.78-5.38 LYMPHOCYTES ABSOLUTE COUNT (BEAKER) (test code = 414) 0.63 K/ L 1.32-3.57 L MONOCYTES ABSOLUTE COUNT (BEAKER) (test code = 415) 0.24 K/ L 0. 30-0.82 L EOSINOPHILS ABSOLUTE COUNT (BEAKER) (test code = 416) 0.21 K/ L 0.04-0.54 BASOPHILS ABSOLUTE COUNT (BEAKER) (test code = 417) 0.02 K/ L 0. 01-0.08 IMMATURE GRANULOCYTES-RELATIVE PERCENT (BEAKER) (test code = 2801) 0 % 0-1 Blood Culture - Routine (Left Venipuncture)2019-03-15 14:00:00* Test Item Value Reference Range Interpretation Comments Result (test code = 6463-4) No growth in 5 days [id number] 14:00:00* Test Item Value Reference Range Interpretation Comments CULTURE (BEAKER) (test code = 1095) No growth in 5 days BLOOD [id number] 13:00:00* Test Item Value Reference Range Interpretation Comments CULTURE (BEAKER) (test code = 1095) No growth in 5 days POCT-GLUCOSE [id number] 23:24:00* Test Item Value Reference Range Interpretation Comments POC-GLUCOSE METER (BEAKER) (test code = 1538) 186 mg/dL 70-110 H : TESTED AT [address], [address]: Chainer/Molding Machine Operator ID = [id number] for Dede Coyle POCT-GLUCOSE [id number] 13:01:00* Test Item Value Reference Range Interpretation Comments POC-GLUCOSE METER (BEAKER) (test code = 1538) 103 mg/dL 70-110 : TESTED AT [address], [address]: Chainer/Molding Machine Operator ID = [id number] for Valerie Coyleny BASIC METABOLIC [id number] 09:10:00* Test Item Value Reference Range Interpretation Comments SODIUM (BEAKER) (test code = 381) 137 meq/L 136-145 POTASSIUM (BEAKER) (test code = 379) 4.2 meq/L 3.5-5.1 CHLORIDE (BEAKER) (test code = 382) 100 meq/L 98-107 CO2 (BEAKER) (test code = 355) 27 meq/L 22-29 BLOOD UREA NITROGEN (BEAKER) (test code = 354) 39 mg/dL 7-21 H CREATININE (BEAKER) (test code = 358) 9.49 mg/dL 0.57-1.25 H GLUCOSE RANDOM (BEAKER) (test code = 652) 75 mg/dL 70-105 CALCIUM (BEAKER) (test code = 697) 9.2 mg/dL 8.4-10.2 EGFR (BEAKER) (test code = 1092) 6 mL/min/1.73 sq m ESTIMATED GFR IS NOT ACCURATE CREATININE CLEARANCE IN PREDICTING GLOMERULAR FILTRATION RATE. ESTIMATED GFR IS NOT APPLICABLE FOR DIALYSIS PATIENTS. Chainer ID - ANTHONY [id number] 09:09:00* Test Item Value Reference Range Interpretation Comments PHOSPHORUS (BEAKER) (test code = 604) 2.6 mg/dL 2.3-4.7 Chainer ID - ANTHONY MHEMOGLOBIN AND [id number] 07:36:00* Test Item Value Reference Range Interpretation Comments HEMOGLOBIN (BEAKER) (test code = 410) 8.0 GM/DL 13.7-17.5 L HEMATOCRIT (BEAKER) (test code = 411) 23.5 % 40.1-51.0 L Chainer ID - [id number]-GLUCOSE [id number] 22:05:00* Test Item Value Reference Range Interpretation Comments POC-GLUCOSE METER (BEAKER) (test code = 1538) 168 mg/dL 70-110 H : TESTED AT [facility] [address] [facility], [address]: Chainer/Molding Machine Operator ID = [id number] for Kalina Leal POCT-GLUCOSE [id number] 18:04:00* Test Item Value Reference Range Interpretation Comments POC-GLUCOSE METER (BEAKER) (test code = 1538) 193 mg/dL 70-110 H : Notified RN/MD: TESTED AT [facility] [address] [facility], [address]: Chainer/Molding Machine Operator ID = [id number] for GIOVANY VU POCT-GLUCOSE [id number] 13:15:00* Test Item Value Reference Range Interpretation Comments POC-GLUCOSE METER (BEAKER) (test code = 1538) 146 mg/dL 70-110 H : TESTED AT [facility] [address] [facility], [address]: Chainer/Molding Machine Operator ID = [id number] for GIOVANY VU POCT-GLUCOSE [id number] 08:45:00* Test Item Value Reference Range Interpretation Comments POC-GLUCOSE METER (BEAKER) (test code = 1538) 107 mg/dL 70-110 : TESTED AT [facility] [address] [facility], [address]: Chainer/Molding Machine Operator ID = [id number] for GIOVANY VU BASIC METABOLIC [id number] 05:50:00* Test Item Value Reference Range Interpretation Comments SODIUM (BEAKER) (test code = 381) 135 meq/L 136-145 L POTASSIUM (BEAKER) (test code = 379) 4.1 meq/L 3.5-5.1 CHLORIDE (BEAKER) (test code = 382) 99 meq/L 98-107 CO2 (BEAKER) (test code = 355) 28 meq/L 22-29 BLOOD UREA NITROGEN (BEAKER) (test code = 354) 28 mg/dL 7-21 H CREATININE (BEAKER) (test code = 358) 7.63 mg/dL 0.57-1.25 H GLUCOSE RANDOM (BEAKER) (test code = 652) 126 mg/dL 70-105 H CALCIUM (BEAKER) (test code = 697) 9.1 mg/dL 8.4-10.2 EGFR (BEAKER) (test code = 1092) 7 mL/min/1.73 sq m ESTIMATED GFR IS NOT ACCURATE CREATININE CLEARANCE IN PREDICTING GLOMERULAR FILTRATION RATE. ESTIMATED GFR IS NOT APPLICABLE FOR DIALYSIS PATIENTS. Chainer ID - ANTHONY MHEMOGLOBIN AND [id number] 04:57:00* Test Item Value Reference Range Interpretation Comments HEMOGLOBIN (BEAKER) (test code = 410) 7.3 GM/DL 13.7-17.5 L HEMATOCRIT (BEAKER) (test code = 411) 22.2 % 40.1-51.0 L Chainer ID - [id number]-GLUCOSE [id number] 22:40:00* Test Item Value Reference Range Interpretation Comments POC-GLUCOSE METER (BEAKER) (test code = 1538) 157 mg/dL 70-110 H : TESTED AT [facility] [address] [facility], [address]: Chainer/Molding Machine Operator ID = [id number] for Kalina Leal HEMOGLOBIN AND [id number] 18:07:00* Test Item Value Reference Range Interpretation Comments HEMOGLOBIN (BEAKER) (test code = 410) 8.1 GM/DL 13.7-17.5 L HEMATOCRIT (BEAKER) (test code = 411) 24.4 % 40.1-51.0 L Chainer ID - [id number]-GLUCOSE [id number] 17:47:00* Test Item Value Reference Range Interpretation Comments POC-GLUCOSE METER (CATRNIA) (test code = 1538) 188 mg/dL 70-110 H : Notified RN/MD: TESTED AT [facility] [address] [facility], [address]: Chainer/Molding Machine Operator ID = [id number] for GIOVANY VU Vein Mapping Legs [id number] 15:10:03Ejection FractionSLEH ECHO HEARTLAB MKCKESSON CPACSRight Impression1. There is no deep venous venous obstruction in the common femoral,profunda femoral, femoral, popliteal, posterior tibial or peroneal veins.2. There is no superficial venous obstruction in the great saphenous vein.Left Impression1. There is no deep venous obstruction in the common femoral, profundafemoral, femoral, popliteal, post erior tibial or peroneal veins.2. There is no superficial venous obstruction in the great saphenous vein. Conclusions Summary Venous duplex imaging and compr ession of the bilateral lower extremities was performed. The veins were adequate ly visualized. The bilateral venous systems were patent and compressible with no evidence of thrombus. Superficial venous measurements are documented below. Si gnature Electr onically signed by Nicole Christianson MD(Interpreting physician) on 03/11/2019 03: 10 PM Velocitie s are measured in cm/s ; Diameters are measured in cm LE Vein Mapping Superfici al - Great Saphenous Vein Right Left + + + + + + + + !Location ! !Diameter !Depth ! !Diameter !Depth ! + + + + -----+ + + + !Sapheno Femoral Junction ! !0.89 ! ! !0.86 ! ! + + + + + +-- + + !GSV High Thigh ! !0.57 ! ! !0.63 ! ! + + + + + + + + !GSV Mid Thigh ! !0.51 ! ! !0.54 ! ! + + +------- + + + + + !GSV Low Thigh ! !0.59 ! ! !0.83 ! ! +-- + + + + + + + !GSV Knee ! !0.47 ! ! !0.79 ! ! + + + -----+ + + +--------- + !GSV High Calf ! !0.66 ! ! !0.68 ! ! + + + +---- + + + + !GSV Mid Calf ! !0. 55 ! ! !0.65 ! ! + + + + + + + + !GSV Low Calf ! !0.51 ! ! !0.6 ! ! + + + + -----+ + + + Superfi cial - Lesser Saphenous Vein Right Left + + + + + + + --+ !Location ! !Diameter !Depth ! !Diameter !Depth ! + + + + -------+ + + + !SSV H igh Calf ! !0.28 ! ! !0.81 ! ! + + + + + + + + !SSV Mid Calf ! !35 ! ! !0.63 ! ! + + + + + + + + Interface, External Ris In - 03/11/2019 3:10 PM [facility] LAB - Lower Extremities Vein Mapping Demographics Patient Name ADDI CARLSON Date of Study 03/11/2019 ALICE ABDUL Age 58 Vis it Number [id number] Gender Male Accession Number [id number] Date of 1960 Referring Jesi De Los Santos MD Room Number 4864 Physician Engineer [employer] [facility] Nicole Christianson, Physician ProcedureType of Study: Veins: Lower Extremity Vein Mapping, VEIN MA PPING, LOWER EXTREMITY, BILATERAL. Indications for Study:Pre-op for vein harvest ing.Patient Status:Routine.Study Location:Vascular Lab.Technical Quality:Good vi sualization.Risk FactorsHistory of Disease+ + +----- +!Diagnosis !Date !Comments !+ + + +!History/Risk ! !HTN, HLD, ESRD, L eft Arm AV Fistula, PVD, !!Factors: ! !DM !+ + + +!History/Risk !03/09/2019!PAD !!Factors: ! ! !+ + + -----+ImpressionsRight Impression1. There is no deep venous venous obstruction i n the common femoral,profunda femoral, femoral, popliteal, posterior tibial or p eroneal veins.2. There is no superficial venous obstruction in the great sapheno us vein.Left Impression1. There is no deep venous obstruction in the common femo ral, profundafemoral, femoral, popliteal, posterior tibial or peroneal veins.2. There is no superficial venous obstruction in the great saphenous vein. Conclusi ons Summary Venous duplex imaging and compression of the bilateral lower extre mities was performed. The veins were adequately visualized. The bilateral venous systems were patent and compressible with no evidence of thrombus. Superficial venous measurements are documented below. Signature Velocities are measured in cm/s ; Diameters are measured in cmLE Vein Mapping Superficial - Great Saphenous Vein Right Left + + +---- + + + + + !Location ! !Diameter !Depth ! !Diameter !Depth ! + + + + + + ---+ + !Sapheno Femoral Junction ! !0.89 ! ! !0.86 ! ! +--------- + + --------+ + + +------ + !GSV High Thigh ! !0.57 ! ! !0.63 ! ! + + + +- + + + + !GSV Mid Thigh ! !0.51 ! ! !0.54 ! ! + + + + + + + ---+ !GSV Low Thigh ! !0.59 ! ! !0.83 ! ! + + + + --------+ + + + !GSV Knee ! !0.47 ! ! !0.79 ! ! + + + + + + + + !GSV High Calf ! !0.66 ! ! !0.68 ! ! + ---+ + + + +--------- + + !GSV Mid Calf ! !0.55 ! ! !0.65 ! ! + + +---- + + + + + !GSV Low Calf ! !0.51 ! ! !0.6 ! ! + + + + + + ---+ + Superficial - Lesser Saphenous Vein Right Left + + +-- + + + + + !Location ! !Diameter !Depth ! !Diameter !Depth ! + + + + + + -----+ + !SSV High Calf ! !0.28 ! ! !0.81 ! ! +------- + + + + + +---- + !SSV Mid Calf ! !35 ! ! !0. 63 ! ! + + + + + + + + [id number] 13:22:00* Test Item Value Reference Range Interpretation Comments POC-GLUCOSE METER (BEAKER) (test code = 1538) 156 mg/dL 70-110 H : TESTED AT [address], [address]: Chainer/Molding Machine Operator ID = [id number] for GIOVANY VU POCT-GLUCOSE [id number] 08:02:00* Test Item Value Reference Range Interpretation Comments POC-GLUCOSE METER (BEAKER) (test code = 1538) 118 mg/dL 70-110 H : TESTED AT [place] [id number] [facility], [address]: Chainer/Molding Machine Operator ID = [id number] for GIOVANY VU BASIC METABOLIC [id number] 05:19:00* Test Item Value Reference Range Interpretation Comments SODIUM (BEAKER) (test code = 381) 136 meq/L 136-145 POTASSIUM (BEAKER) (test code = 379) 3.8 meq/L 3.5-5.1 CHLORIDE (BEAKER) (test code = 382) 101 meq/L 98-107 CO2 (BEAKER) (test code = 355) 28 meq/L 22-29 BLOOD UREA NITROGEN (BEAKER) (test code = 354) 21 mg/dL 7-21 CREATININE (BEAKER) (test code = 358) 5.96 mg/dL 0.57-1.25 H GLUCOSE RANDOM (BEAKER) (test code = 652) 142 mg/dL 70-105 H CALCIUM (BEAKER) (test code = 697) 8.9 mg/dL 8.4-10.2 EGFR (BEAKER) (test code = 1092) 10 mL/min/1.73 sq m ESTIMATED GFR IS NOT ACCURATE CREATININE CLEARANCE IN PREDICTING GLOMERULAR FILTRATION RATE. ESTIMATED GFR IS NOT APPLICABLE FOR DIALYSIS PATIENTS. Chainer ID - ANTHONY MHEMOGLOBIN AND [id number] 04:36:00* Test Item Value Reference Range Interpretation Comments HEMOGLOBIN (BEAKER) (test code = 410) 7.2 GM/DL 13.7-17.5 L HEMATOCRIT (BEAKER) (test code = 411) 21.9 % 40.1-51.0 L Chainer ID - [id number]-GLUCOSE [id number] 21:47:00* Test Item Value Reference Range Interpretation Comments POC-GLUCOSE METER (BEAKER) (test code = 1538) 158 mg/dL 70-110 H : TESTED AT [place] [id number] [facility], [address]: Chainer/Molding Machine Operator ID = [id number] for ALEXI REY HEMOGLOBIN AND [id number] 18:29:00* Test Item Value Reference Range Interpretation Comments HEMOGLOBIN (BEAKER) (test code = 410) 8.1 GM/DL 13.7-17.5 L HEMATOCRIT (BEAKER) (test code = 411) 24.6 % 40.1-51.0 L Chainer ID - [id number]-GLUCOSE [id number] 17:34:00* Test Item Value Reference Range Interpretation Comments POC-GLUCOSE METER (BEAKER) (test code = 1538) 162 mg/dL 70-110 H : TESTED AT [place] [id number] [facility], [address]: Chainer/Molding Machine Operator ID = [id number] for GIOVANY VU IRON, TIBC, % SAT. (WITHOUT FERRITIN)2019-03-10 17:20:00* Test Item Value Reference Range Interpretation Comments IRON (BEAKER) (test code = 547) 40.0 ug/dL 40.0-160.0 TOTAL IRON BINDING CAPACITY (BEAKER) (test code = 769) 129 ug/dL 250-450 L IRON % SATURATION (2) (BEAKER) (test code = 2590) 31 % 20-5 5 Chainer ID - [id number] 15:46:00* Test Item Value Reference Range Interpretation Comments FERRITIN (BEAKER) (test code = 361) 2960 ng/mL 5-275 H Chainer ID - BSPOCT-GLUCOSE [id number] 13:54:00* Test Item Value Reference Range Interpretation Comments POC-GLUCOSE METER (BEAKER) (test code = 1538) 119 mg/dL 70-110 H : TESTED AT [facility] [address] [place], [address]: Chainer/Molding Machine Operator ID = [id number] for GIOVANY VU BASIC METABOLIC [id number] 12:12:00* Test Item Value Reference Range Interpretation Comments SODIUM (BEAKER) (test code = 381) 137 meq/L 136-145 POTASSIUM (BEAKER) (test code = 379) 3.6 meq/L 3.5-5.1 CHLORIDE (BEAKER) (test code = 382) 101 meq/L 98-107 CO2 (BEAKER) (test code = 355) 30 meq/L 22-29 H BLOOD UREA NITROGEN (BEAKER) (test code = 354) 16 mg/dL 7-21 CREATININE (BEAKER) (test code = 358) 3.82 mg/dL 0.57-1.25 H GLUCOSE RANDOM (BEAKER) (test code = 652) 146 mg/dL 70-105 H CALCIUM (BEAKER) (test code = 697) 9.3 mg/dL 8.4-10.2 EGFR (BEAKER) (test code = 1092) 16 mL/min/1.73 sq m ESTIMATED GFR IS NOT ACCURATE CREATININE CLEARANCE IN PREDICTING GLOMERULAR FILTRATION RATE. ESTIMATED GFR IS NOT APPLICABLE FOR DIALYSIS PATIENTS. Chainer ID - NTPCBC W/PLT COUNT & AUTO [id number] 10:03:00* Test Item Value Reference Range Interpretation Comments WHITE BLOOD CELL COUNT (BEAKER) (test code = 775) 10.4 K/ L 3.5- 10.5 RED BLOOD CELL COUNT (BEAKER) (test code = 761) 2.59 M/ L 4.63-6 .08 L HEMOGLOBIN (BEAKER) (test code = 410) 7.9 GM/DL 13.7-17.5 L HEMATOCRIT (BEAKER) (test code = 411) 23.8 % 40.1-51.0 L MEAN CORPUSCULAR VOLUME (BEAKER) (test code = 753) 91.9 fL 79. 0-92.2 MEAN CORPUSCULAR HEMOGLOBIN (BEAKER) (test code = 751) 30.5 pg 25.7-32.2 MEAN CORPUSCULAR HEMOGLOBIN CONC (BEAKER) (test code = 752) 33.2 GM/DL 32.3-36.5 RED CELL DISTRIBUTION WIDTH (BEAKER) (test code = 412) 15.5 % 11.6-14.4 H PLATELET COUNT (BEAKER) (test code = 756) 127 K/CU MM 150-450 L MEAN PLATELET VOLUME (BEAKER) (test code = 754) 10.3 fL 9.4-12 .4 NUCLEATED RED BLOOD CELLS (BEAKER) (test code = 413) 0 /100 WBC 0 -0 NEUTROPHILS RELATIVE PERCENT (BEAKER) (test code = 429) 90 % LYMPHOCYTES RELATIVE PERCENT (BEAKER) (test code = 430) 5 % MONOCYTES RELATIVE PERCENT (BEAKER) (test code = 431) 3 % EOSINOPHILS RELATIVE PERCENT (BEAKER) (test code = 432) 1 % BASOPHILS RELATIVE PERCENT (BEAKER) (test code = 437) 0 % NEUTROPHILS ABSOLUTE COUNT (BEAKER) (test code = 670) 9.35 K/ L 1.78-5.38 H LYMPHOCYTES ABSOLUTE COUNT (BEAKER) (test code = 414) 0.52 K/ L 1.32-3.57 L MONOCYTES ABSOLUTE COUNT (BEAKER) (test code = 415) 0.35 K/ L 0. 30-0.82 EOSINOPHILS ABSOLUTE COUNT (BEAKER) (test code = 416) 0.09 K/ L 0.04-0.54 BASOPHILS ABSOLUTE COUNT (BEAKER) (test code = 417) 0.02 K/ L 0. 01-0.08 IMMATURE GRANULOCYTES-RELATIVE PERCENT (BEAKER) (test code = 2801) 0 % 0-1 POCT-GLUCOSE [id number] 08:53:00* Test Item Value Reference Range Interpretation Comments POC-GLUCOSE METER (BEAKER) (test code = 1538) 213 mg/dL 70-110 H : Notified RN/MD: TESTED AT [facility] [address] [facility], [address]: Chainer/Molding Machine Operator ID = [id number] for GIOVANY VU HEMOGLOBIN AND [id number] 08:41:00* Test Item Value Reference Range Interpretation Comments HEMOGLOBIN (BEAKER) (test code = 410) 8.0 GM/DL 13.7-17.5 L HEMATOCRIT (BEAKER) (test code = 411) 23.8 % 40.1-51.0 L Chainer ID - [id number] doppler legs [id number] 08:39:07Ejection FractionSLEH ECHO HEARTLAB MKCKESSON CPACSRight Impression1. The common femoral, profunda femoral, superficial femoral and poplitealarteries are patent with triphasic Doppler waveforms and scatteredcalcification.2. The proximal posterior tibial artery is not seen. There is > 50% stenosisin the distal posterior tibial artery (87cm/sec).3. The peroneal and anterior tibial arteries are patent with biphasicDoppler waveforms and diffuse calcification.4. The PT pressure is 111 mmHg with an EUGENE of 0.83 (mild obstructionrange)and the DP pressure is >255 mmHg (non compressible) range.5. The great toe pressure is 45 mmHg with abnormal TBI of 0 .34.6. There is adequate flow to the 1st, 3rd and 4th digits; decreased flow tothe 2nd and 5th digits via PPG.Left Impression1. The common femoral , profunda femoral, superficial femoral, popliteal andposterior tibial arteries are patent with biphasic Doppler waveforms andscattered calcification.2. The pr ox-mid peroneal artery is not seen. The distal portion is patentwith biphasic Do ppler waveforms.3. The anterior tibial artery is patent with biphasic/monophasic Dopplerwaveforms and calcified vessels.4. The PT and DP pressures are >255 mmHg (non compressible) range.5. The great toe pressure and TBI were not obtained due to amputation.6. There is absent flow to the 2nd digit; severely decreased flow to the 3rdand 4th digits. There is decreased flow to the 5th digit via PPG. Conclusions Summary Arterial pressures and Doppler analysis were performed bilaterally. Adequate Doppler signals were obtained. On the right, the common femoral, profunda femoral, superficial femoral and popliteal arteries were pat ent with triphasic Doppler waveforms and scattered calcification. There was> 50% stenosis in the distal posterior tibial artery. The peroneal and anterior tibial arteries were patent with biphasic Doppler waveforms and diffuse calcification. The PT EUGENE was within the mild obstruction range. The DP EUGENE could not be obtained due to non compressible artery. The great toe pressure and TBI were abn ormal. There was adequate flow to the 1st, 3rd and 4th digits; decreased flow to the 2nd and 5th digits via PPG. On the left, the common femoral , profunda femo ral, superficial femoral, popliteal and posterior tibial arteries were patent wi th biphasic Doppler waveforms and scattered calcification. The prox-mid peroneal artery was not seen. The distal portion was patent with biphasic Doppler wavefo mary. The anterior tibial artery was patent with biphasic/monophasic Doppler wave forms and calcified vessels. The PT and DP EUGENE's were in non compressible range. The great toe pressure and TBI were not obtained due to amputation. There was a bsent flow to the 2nd digit; severely decreased flow to the 3rd and 4th digits. There was decreased flow to the 5th digit via PPG. Signature Velocities are measured in cm/s ; D iameters are measured in cm LE Duplex Measurements Right Left + + + + + + +- + + + !Location ! !PSV !EDV !Waveform ! !PSV !EDV !Waveform ! + + + + + + + -------+ + + !Mid Common Femoral ! !172 !18.3 !Tri phasic ! !232 ! !Biphasic ! + + +------ + + + + +-- + + !Prox PFA ! !135 !20.7 !Triphasic ! !123 ! !Biphasic ! +- + + --+ + + + + -----+ + !Prox SFA ! !154 !18.3 !Triphasic ! !159 ! !Biphasic ! + + + +------- + + + + +---- + !Mid SFA ! !145 !19.5 !Triphasic ! !155 ! !Biphasic ! + + + + -+ + + + + + !Dist SFA ! !9 1 !12.1 !Triphasic ! !145 ! !Biphasic ! + + + + +-------- + + + + -+ !Prox Popliteal ! !79.2 ! !Triphasic ! !107 ! !Biphasic ! + + + + + ------+ + + + + !Dist P opliteal ! !90.9 !13 .3 !Triphasic ! !201 ! !Biphasic ! + + + + + + +- + + + !Prox MORTGAGE BROKER ! !87 ! !Monophasic ! !102 ! !Biphasic ! + + + + + + + -------+ + + !Mid MORTGAGE BROKER ! !143 ! !Bip hasic ! !113 ! !Biphasic ! + + +------ + + + + +-- + + !Dist MORTGAGE BROKER ! !95.6 ! !Biphasic ! ! ! !Absent ! +- + + --+ + + + + -----+ + !Prox ERASMO ! !33.3 ! !Biphasic ! !156 ! !Biphasic ! + + + +------- + + + + +---- + !Mid ERASMO ! !68.8 ! !Biphasic ! !137 ! !Biphasic ! + + + + -+ + + + + + !Dist ERASMO ! !6 4.4 ! !Biphasic ! !98.8 ! !Monophasic ! + + + + +-------- + + + + -+ !Prox Peroneal ! !91.9 ! !Biphasic ! !110 ! !Biphasic ! + + + + + ------+ + + + + !Mid Pe roneal ! + + !Dist Peroneal ! + + Interface, External Ris In - 03/10/2019 8:39 AM [facility] LAB - Lower Extremity Arterial Duplex Demographics Patient Name ADDI CARLSON omid of Study 03/09/2019 ALICE ABDUL 45 Age 58 Visit Number [id number] Carie clark Male Accession Number [id number] Date of 08/09 Referring Jesi De Los Santos MD Room Number 2996 Physician S onographer Zuleyma Staley T Interpreting Nicole Christianson, Hailee Mendenhall, RVT Physician ProcedureType of Study: Extr emities Arteries: Lower Extremities Arterial Duplex, ARTERIAL DOPPLER LEGS, RAMU DILL. Indications for Study:PAD.Patient Status:Routine.Study Location:Portable. Technical Quality:Adequate visualization.Risk FactorsHistory of Disease+-------- + + +!Diagnosis !Date !Comments !+ ----+ + +!History/Risk ! !HTN, HLD, ESRD, Left Arm AV Fistula, PVD, !!Factors: ! !DM !+ +------- ---+ +!History/Risk !03/09/2019! PAD !!Factors: ! ! !+ + +-------- +ImpressionsRight Impression1. The common femo ral, profunda femoral, superficial femoral and poplitealarteries are patent with triphasic Doppler waveforms and scatteredcalcification.2. The proximal posterior tibial artery is not seen. There is > 50% stenosisin the distal posterior tibial artery (87cm/sec).3. The peroneal and anterior tibial arteries are patent with biphasicDoppler waveforms and diffuse calcification.4. The PT pressure is 111 mmHg with an EUGENE of 0.83 (mild obstructionrange)and the DP pressure is >255 mmHg (non compressible) range.5. The great toe pressure is 45 mmHg with abnormal TBI of 0 .34.6. There is adequate flow to the 1st, 3rd and 4th digits; decreased flow tothe 2nd and 5th digits via PPG.Left Impression1. The common femoral , profunda femoral, superficial femoral, popliteal andposterior tibial arteries are patent with biphasic Doppler waveforms andscattered calcification.2. The pr ox-mid peroneal artery is not seen. The distal portion is patentwith biphasic Do ppler waveforms.3. The anterior tibial artery is patent with biphasic/monophasic Dopplerwaveforms and calcified vessels.4. The PT and DP pressures are >255 mmHg (non compressible) range.5. The great toe pressure and TBI were not obtained due to amputation.6. There is absent flow to the 2nd digit; severely decreased flow to the 3rdand 4th digits. There is decreased flow to the 5th digit via PPG. Conclusions Summary Arterial pressures and Doppler analysis were performed bilaterally. Adequate Doppler signals were obtained. On the right, the common femoral, profunda femoral, superficial femoral and popliteal arteries were mendiola nt with triphasic Doppler waveforms and scattered calcification. There was> 50% stenosis in the distal posterior tibial artery. The peroneal and anterior tibial arteries were patent with biphasic Doppler waveforms and diffuse calcification. The PT EUGENE was within the mild obstruction range. The DP EUGENE could not be obtained due to non compressible artery. The great toe pressure and TBI were abn ormal. There was adequate flow to the 1st, 3rd and 4th digits; decreased flow to the 2nd and 5th digits via PPG. On the left, the common femoral , profunda femo ral, superficial femoral, popliteal and posterior tibial arteries were patent wi th biphasic Doppler waveforms and scattered calcification. The prox-mid peroneal artery was not seen. The distal portion was patent with biphasic Doppler wavefo mary. The anterior tibial artery was patent with biphasic/monophasic Doppler wave forms and calcified vessels. The PT and DP EUGENE's were in non compressible range. The great toe pressure and TBI were not obtained due to amputation. There was a bsent flow to the 2nd digit; severely decreased flow to the 3rd and 4th digits. There was decreased flow to the 5th digit via PPG. Signature Velocities are measured in cm/s ; D iameters are measured in cmLE Duplex Measurements Right Left + ---------+ + + + + +--- + + + !Location ! !PSV !EDV !Waveform ! !PSV !EDV !Waveform ! + + + + + + + -----+ + + !Mid Common Femoral ! !172 !18.3 !Triph asic ! !232 ! !Biphasic ! + + +-------- + + + + +---- + + !Prox PFA ! !135 !20.7 !Triphasic ! !123 ! !Biphasic ! +--- + + + + + + + ---+ + !Prox SFA ! !154 !18.3 !Triphasic ! !159 ! !Biphasic ! + + + +--------- ---------+ + + + +------ + !Mid SFA ! !145 !19.5 !Triphasic ! !155 ! !Biphasic ! + + + + + + + + + ---------+ !Dist SFA ! !91 !12.1 !Triphasic ! !145 ! !Biphasic ! + + + + + + + + + + !Prox Popliteal ! !79.2 ! !Triphasic ! !107 ! !Biphasic ! + + + + + ----+ + + + + !Dist Pop liteal ! !90.9 !13.3 !Triphasic ! !201 ! !B iphasic ! + ---------+ + + + + +--- + + + !Prox MORTGAGE BROKER ! !87 ! !Monophasic ! !102 ! !Biphasic ! + + + + + + + -----+ + + !Mid MORTGAGE BROKER ! !143 ! !Bipha sic ! !113 ! !Biphasic ! + + +-------- + + + + +---- + + !Dist MORTGAGE BROKER ! !95.6 ! !Biphasic ! ! ! !Absent ! +--- + + + + + + + ---+ + !Prox ERASMO ! !33.3 ! !Biphasic ! !156 ! !Biphasic ! + + + +--------- ---------+ + + + +------ + !Mid ERASMO ! !68.8 ! !Biphasic ! !137 ! !Biphasic ! + + + + + + + + + ---------+ !Dist ERASMO ! !64. 4 ! !Biphasic ! !98.8 ! !Monophasic ! + + + + + + + + + + !Prox Peroneal ! !91.9 ! !Biphasic ! !110 ! !Biphasic ! + + + + + ----+ + + + + !Mid Jerald seun ! + + !Dist Peroneal ! + ---------+ [facility]HEMO[facility] AND [id number] 23:38:00* Test Item Value Reference Range Interpretation Comments HEMOGLOBIN (BEAKER) (test code = 410) 7.9 GM/DL 13.7-17.5 L HEMATOCRIT (BEAKER) (test code = 411) 23.9 % 40.1-51.0 L Chainer ID - [id number]-GLUCOSE [id number] 23:27:00* Test Item Value Reference Range Interpretation Comments POC-GLUCOSE METER (BEAKER) (test code = 1538) 173 mg/dL 70-110 H : TESTED AT [place] [id number] [facility], [address]: Chainer/Molding Machine Operator ID = [id number] for ODETOLA, OMER POCT-GLUCOSE [id number] 20:04:00* Test Item Value Reference Range Interpretation Comments POC-GLUCOSE METER (BEAKER) (test code = 1538) 161 mg/dL 70-110 H : TESTED AT [facility] [address] [facility], [address]: Chainer/Molding Machine Operator ID = [id number] for ODETOLA, OMER Prothrombin time/[id number] 15:22:00* Test Item Value Reference Range Interpretation Comments Protime (test code = 5902-2) 16.0 11.9- 14.2 seconds H INR (test code = 6301-6) 1.3 <=5.9 VLADIMIR (test code = VLADIMIR) Effective 07/27/2018: PT Refe rence Range ChangeNew: 11.9- 14.2 Previous: 11.7-14.7 RECOMMENDED COUMADIN/WARFARIN INR THERAPY RANGESSTANDARD DOSE: 2.0-3.0 Includes: PROPHYLAXIS for venous thrombosis, sys temic embolization; TREATMENT for venous thrombosis and/or pulmonary embolus.HIGH RISK: Target INR is 2.5-3.5 for patients wiht mechanical heart valves. Lab Interpretation (test code = 83448-5) Abnormal [facility] HospitalPROT[facility]OM[facility]/[id number] 15:22:00* Test Item Value Reference Range Interpretation Comments PROTIME (BEAKER) (test code = 759) 16.0 seconds 11.9-14.2 H INR (BEAKER) (test code = 370) 1.3 <=5.9 Effective 07/27/2018: PT Reference Range ChangeNew: 11.9-14.2 Previous: 11.7-14. 7RECOMMENDED COUMADIN/WARFARIN INR THERAPY RANGESSTANDARD DOSE: 2.0-3.0 Include s: PROPHYLAXIS for venous thrombosis, systemic embolization; TREATMENT for venou s thrombosis and/or pulmonary embolus.HIGH RISK: Target INR is 2.5-3.5 for patie nts wiht mechanical heart valves.POCT-GLUCOSE [id number] 13:25:00* Test Item Value Reference Range Interpretation Comments POC-GLUCOSE METER (BEAKER) (test code = 1538) 159 mg/dL 70-110 H : TESTED AT [address], [address]: Chainer/Molding Machine Operator ID = [id number] for KANDACE MATTHEWS BASIC METABOLIC [id number] 12:56:00* Test Item Value Reference Range Interpretation Comments SODIUM (BEAKER) (test code = 381) 136 meq/L 136-145 POTASSIUM (BEAKER) (test code = 379) 3.9 meq/L 3.5-5.1 CHLORIDE (BEAKER) (test code = 382) 102 meq/L 98-107 CO2 (BEAKER) (test code = 355) 30 meq/L 22-29 H BLOOD UREA NITROGEN (BEAKER) (test code = 354) 26 mg/dL 7-21 H CREATININE (BEAKER) (test code = 358) 6.49 mg/dL 0.57-1.25 H GLUCOSE RANDOM (BEAKER) (test code = 652) 173 mg/dL 70-105 H CALCIUM (BEAKER) (test code = 697) 8.8 mg/dL 8.4-10.2 EGFR (BEAKER) (test code = 1092) 9 mL/min/1.73 sq m ESTIMATED GFR IS NOT ACCURATE CREATININE CLEARANCE IN PREDICTING GLOMERULAR FILTRATION RATE. ESTIMATED GFR IS NOT APPLICABLE FOR DIALYSIS PATIENTS. Chainer ID - DBCBC W/PLT COUNT & AUTO [id number] 12:35:00* Test Item Value Reference Range Interpretation Comments WHITE BLOOD CELL COUNT (BEAKER) (test code = 775) 6.3 K/ L 3.5- 10.5 RED BLOOD CELL COUNT (BEAKER) (test code = 761) 2.01 M/ L 4.63-6 .08 L HEMOGLOBIN (BEAKER) (test code = 410) 6.2 GM/DL 13.7-17.5 L HEMATOCRIT (BEAKER) (test code = 411) 19.0 % 40.1-51.0 L MEAN CORPUSCULAR VOLUME (BEAKER) (test code = 753) 94.5 fL 79. 0-92.2 H Discordant from previous results MEAN CORPUSCULAR HEMOGLOBIN (BEAKER) (test code = 751) 30.8 pg 25.7-32.2 MEAN CORPUSCULAR HEMOGLOBIN CONC (BEAKER) (test code = 752) 32.6 GM/DL 32.3-36.5 RED CELL DISTRIBUTION WIDTH (BEAKER) (test code = 412) 15.2 % 11.6-14.4 H PLATELET COUNT (BEAKER) (test code = 756) 77 K/CU MM 150-450 L MEAN PLATELET VOLUME (BEAKER) (test code = 754) 10.5 fL 9.4-12 .4 NUCLEATED RED BLOOD CELLS (BEAKER) (test code = 413) 0 /100 WBC 0 -0 NEUTROPHILS RELATIVE PERCENT (BEAKER) (test code = 429) 87 % LYMPHOCYTES RELATIVE PERCENT (BEAKER) (test code = 430) 7 % MONOCYTES RELATIVE PERCENT (BEAKER) (test code = 431) 5 % EOSINOPHILS RELATIVE PERCENT (BEAKER) (test code = 432) 2 % BASOPHILS RELATIVE PERCENT (BEAKER) (test code = 437) 0 % NEUTROPHILS ABSOLUTE COUNT (BEAKER) (test code = 670) 5.42 K/ L 1.78-5.38 H LYMPHOCYTES ABSOLUTE COUNT (BEAKER) (test code = 414) 0.41 K/ L 1.32-3.57 L MONOCYTES ABSOLUTE COUNT (BEAKER) (test code = 415) 0.29 K/ L 0. 30-0.82 L EOSINOPHILS ABSOLUTE COUNT (BEAKER) (test code = 416) 0.10 K/ L 0.04-0.54 BASOPHILS ABSOLUTE COUNT (BEAKER) (test code = 417) 0.01 K/ L 0. 01-0.08 IMMATURE GRANULOCYTES-RELATIVE PERCENT (BEAKER) (test code = 2801) 1 % 0-1 POCT-GLUCOSE [id number] 08:02:00* Test Item Value Reference Range Interpretation Comments POC-GLUCOSE METER (BEAKER) (test code = 1538) 136 mg/dL 70-110 H : TESTED AT [facility] [address] [facility], [address]: Chainer/Molding Machine Operator ID = [id number] for Dede Coyle HEPATITIS B SURFACE [id number] 07:00:00* Test Item Value Reference Range Interpretation Comments HEPATITIS B SURFACE ANTIGEN (2) (BEAKER) (test code = 2585) Nonreactive Nonreactive HEMOGLOBIN AND [id number] 06:25:00* Test Item Value Reference Range Interpretation Comments HEMOGLOBIN (BEAKER) (test code = 410) 7.3 GM/DL 13.7-17.5 L HEMATOCRIT (BEAKER) (test code = 411) 22.3 % 40.1-51.0 L RAD, FOOT, MIN 3 VIEWS, [id number] 22:35:00Reason for exam:->left foot wound FINAL REPORT Left foot. MEDICAL HISTORY: Left foot wound. COMPARISON STUDY: January 24, 2019. 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 Post surgical changes in the second digit. The appearance is similar to previous. No acute fracture is identified. There is a large ulcer along the inferior aspect of the calcaneus measuring approximately 6.5 cm. No plain film evidence of osteomyelitis is seen. MRI would be more sensitive. Extensive atherosclerosis is seen. IMPRESSION: Lar ge ulcer adjacent to the calcaneus with a similar appearance to previous. No oth er significant change. Signed: Rell Barroso MDReport Verified Date/Time: 09/2019 22:35:29 Reading Location: [facility] C013W Consult Reading Room Electr onically signed by: RELL BARROSO M.D. on 03/08/2019 10:35 PM POCT-GLUCOSE [id number] 20:41:00* Test Item Value Reference Range Interpretation Comments POC-GLUCOSE METER (BEAKER) (test code = 1538) 132 mg/dL 70-110 H : TESTED AT [place] [id number] [facility], [address]: Chainer/Molding Machine Operator ID = [id number] for GILMA MENDOZA POCT-GLUCOSE [id number] 11:51:00* Test Item Value Reference Range Interpretation Comments POC-GLUCOSE METER (BEAKER) (test code = 1538) 193 mg/dL 70-110 H : TESTED AT [place] [id number] [facility], [address]: Chainer/Molding Machine Operator ID = [id number] for PRINCESS JASON POCT-GLUCOSE [id number] 09:53:00* Test Item Value Reference Range Interpretation Comments POC-GLUCOSE METER (BEAKER) (test code = 1538) 137 mg/dL 70-110 H : TESTED AT [place] [id number] [facility], [address]: Chainer/Molding Machine Operator ID = [id number] for ARMSTRONG NAYELI HEMOGLOBIN AND [id number] 06:31:00* Test Item Value Reference Range Interpretation Comments HEMOGLOBIN (BEAKER) (test code = 410) 6.7 GM/DL 13.7-17.5 L HEMATOCRIT (BEAKER) (test code = 411) 20.7 % 40.1-51.0 L [id number] 01:54:00* Test Item Value Reference Range Interpretation Comments PHOSPHORUS (BEAKER) (test code = 604) 2.4 mg/dL 2.3-4.7 BASIC METABOLIC [id number] 23:27:00* Test Item Value Reference Range Interpretation Comments SODIUM (BEAKER) (test code = 381) 135 meq/L 136-145 L POTASSIUM (BEAKER) (test code = 379) 3.9 meq/L 3.5-5.1 CHLORIDE (BEAKER) (test code = 382) 97 meq/L 98-107 L CO2 (BEAKER) (test code = 355) 28 meq/L 22-29 BLOOD UREA NITROGEN (BEAKER) (test code = 354) 41 mg/dL 7-21 H CREATININE (BEAKER) (test code = 358) 7.98 mg/dL 0.57-1.25 H GLUCOSE RANDOM (BEAKER) (test code = 652) 183 mg/dL 70-105 H CALCIUM (BEAKER) (test code = 697) 9.1 mg/dL 8.4-10.2 EGFR (BEAKER) (test code = 1092) 7 mL/min/1.73 sq m ESTIMATED GFR IS NOT ACCURATE CREATININE CLEARANCE IN PREDICTING GLOMERULAR FILTRATION RATE. ESTIMATED GFR IS NOT APPLICABLE FOR DIALYSIS PATIENTS. PT/[id number] 22:58:00* Test Item Value Reference Range Interpretation Comments Protime (test code = 5902-2) 15.2 11.9- 14.2 seconds H INR (test code = 6301-6) 1.2 <=5.9 PTT (test code = 34892-8) 43.2 22.5- 36.0 seconds H VLADIMIR (test code = VLADIMIR) Effective 07/27/2018: PT Refe rence Range ChangeNew: 11.9- 14.2 Previous: 11.7-14.7 RECOMMENDED COUMADIN/WARFARIN INR THERAPY RANGESSTANDARD DOSE: 2.0-3.0 Includes: PROPHYLAXIS for venous thrombosis, sys temic embolization; TREATMENT for venous thrombosis and/or pulmonary embolus.HIGH RISK: Target INR is 2.5-3.5 for patients wiht mechanical heart valves. Lab Interpretation (test code = 67478-4) Abnormal [facility][id number] 22:58:00* Test Item Value Reference Range Interpretation Comments PROTIME (BEAKER) (test code = 759) 15.2 seconds 11.9-14.2 H INR (BEAKER) (test code = 370) 1.2 <=5.9 PARTIAL THROMBOPLASTIN TIME (BEAKER) (test code = 760) 43.2 seconds 22.5-36.0 H Effective 07/27/2018: PT Reference Range ChangeNew: 11.9-14.2 Previous: 11.7-14. 7RECOMMENDED COUMADIN/WARFARIN INR THERAPY RANGESSTANDARD DOSE: 2.0-3.0 Include s: PROPHYLAXIS for venous thrombosis, systemic embolization; TREATMENT for venou s thrombosis and/or pulmonary embolus.HIGH RISK: Target INR is 2.5-3.5 for patie nts wiht mechanical heart valves.CBC W/PLT COUNT & AUTO [id number] 22:57:00* Test Item Value Reference Range Interpretation Comments WHITE BLOOD CELL COUNT (BEAKER) (test code = 775) 5.7 K/ L 3.5- 10.5 RED BLOOD CELL COUNT (BEAKER) (test code = 761) 2.41 M/ L 4.63-6 .08 L HEMOGLOBIN (BEAKER) (test code = 410) 7.5 GM/DL 13.7-17.5 L HEMATOCRIT (BEAKER) (test code = 411) 25.1 % 40.1-51.0 L MEAN CORPUSCULAR VOLUME (BEAKER) (test code = 753) 104.1 fL 79. 0-92.2 H MEAN CORPUSCULAR HEMOGLOBIN (BEAKER) (test code = 751) 31.1 pg 25.7-32.2 MEAN CORPUSCULAR HEMOGLOBIN CONC (BEAKER) (test code = 752) 29.9 GM/DL 32.3-36.5 L RED CELL DISTRIBUTION WIDTH (BEAKER) (test code = 412) 14.8 % 11.6-14.4 H PLATELET COUNT (BEAKER) (test code = 756) 88 K/CU MM 150-450 L MEAN PLATELET VOLUME (BEAKER) (test code = 754) 10.0 fL 9.4-12 .4 NUCLEATED RED BLOOD CELLS (BEAKER) (test code = 413) 0 /100 WBC 0 -0 NEUTROPHILS RELATIVE PERCENT (BEAKER) (test code = 429) 84 % LYMPHOCYTES RELATIVE PERCENT (BEAKER) (test code = 430) 8 % MONOCYTES RELATIVE PERCENT (BEAKER) (test code = 431) 5 % EOSINOPHILS RELATIVE PERCENT (BEAKER) (test code = 432) 2 % BASOPHILS RELATIVE PERCENT (BEAKER) (test code = 437) 0 % NEUTROPHILS ABSOLUTE COUNT (BEAKER) (test code = 670) 4.80 K/ L 1.78-5.38 LYMPHOCYTES ABSOLUTE COUNT (BEAKER) (test code = 414) 0.47 K/ L 1.32-3.57 L MONOCYTES ABSOLUTE COUNT (BEAKER) (test code = 415) 0.28 K/ L 0. 30-0.82 L EOSINOPHILS ABSOLUTE COUNT (BEAKER) (test code = 416) 0.11 K/ L 0.04-0.54 BASOPHILS ABSOLUTE COUNT (BEAKER) (test code = 417) 0.02 K/ L 0. 01-0.08 IMMATURE GRANULOCYTES-RELATIVE PERCENT (BEAKER) (test code = 2801) 0 % 0-1 Washed and warmed to correct for cold agglutinin.Tissue [id number] 10:22:00 * Test Item Value Reference Range Interpretation Comments Case Report (test code = 104) Surgical Pathology Repor t Case: [id number] Authorizing Provider: Arron Carreno MD Collected: 02/23/2019817 Ordering Location: [address] Med/Surg Received: 02/23/2019 0957 Pathologist: Sana Muhammad MD Specimens: A) - Esophagus, lower polyp biopsy B) - Esophagus, Willis's biopsy DIAGNOSIS (test code = 3220) [id number]wdwNHuUCynkaHePIeeh0QlJ0UcVbXfWMccojQaYWHy CmoeqvmuPJXdYSC7moHaGIZxNLyvJMKrRXaoMw4jcAFjxGgaIeTkAMNpe5jysxNGutrxtVu0y8mbZYCn PaU6xSZpEStcE2aobzGwpDLrMTUjJKi0iD84JNHvfG 9uyPEaTFdbsoMjGxU9YYceJQUpCwK4RRYqvLSyJXGcR4frQOZoXXdnLUAnODchdTEvOYX9fDyoh9T0uJ HlrIOvcSkuFiWqCqIjNDZQw8AqKGp1yHyuD7SxPPSuTuJ2xPBfNYKrGIpnTXKsRMFvpfL3eZ40CSxkge O2eHCua1Vpv15xv640rF0usZPxDFQ5TPVcSBUuaSWm OWHkKFR7KDPxcUFuM7n7OmDdwPFjY2H1MdLpnIZeT0G0EmZpeKMnU6M2EvXdkNTrJTWxeEXtFz5xvKZx lAMszt1rmt94JQP8l8TowRnzIRZ4YXU4KkEaCl1qjDSrVNLbBA6eLmYwrMMzSYKccf93gQfjDVeaqsHf rK5jPlJiWJQnjWRpSNBsDY2deGXpFUDhwC9xriahIL HpPfNfinaoKSEueXhccfRaKo5xgUssXAV7OBuaU9xxtF8zVuH7BIjvR0vrvO1hXHg3NSvtqRV8VSBlyU 3xOF3mojptw6qhIkQcXE9rqwoji4hoBfXxOJ4eamf5g6ruCjSiHM3qrvubc8aoDhNcEWcrFUMfbvdvKQ Wrv3XvnrsnICCpb3PcG8TcnImvQ50ycKbiX85yDAFs mAvbuX9gdUoblV2rFeFoGyAcICmiuWezoDWweuizDMwfoeXgVBwnnderYMYhNHbsO8boGaKoXTNjaRbt AWats8EnYDEgOKKkTmPqHK1oGOVNSFiRV0UEDKXET0hGBtWHK1kQTLwxSgrIQVLEZezoIMAfNDBhAUTJ UoNACKWXPSMfA5UaU70QDQ5NNPUvIBVDJ6KNSCfOKB esSDqSUB4XHXOFAYQAQ1KUZYZPM39gHH4VMRCWJWcAZZLCXXvPR8dqS6CTFKClPTgMTWhQA1lBWTaZND BaS47VEBOETGiaaAWgPMFgnfZTTpYYS28LVSINNDCtPLYBW1PERCtrrFKbIEUsLL8aM3LKPD4CI20MRA 8EJMDlTHFDF5JSPOrQYFanSR7UBDEQUX2LSTJQLAZU VGjET3jYRYQcccOyXZNhGI3JTKCOX8IWLSCMSYVHDnWEEXlGM18CKiADYPIIZU3tpAGhiItcjzGzCCyq a3BvKOhyWRGmIT9uuWtvFKMyMM1dKONtQ6pgqS3jcoc9MzInSRScYkQ9RDWmbbM8Ihu4DHQlYXulr2vk t6YtMFZwABj0jLcnIgIeHTKaw3jxlaVsSpIsQAYxUC FaTWWlzFFsD545u3ycd8gtwpPsnAI7HLYoLVN5ZUvapjTqcsL9GCscfAVyPxC3GRkqljSdWKatbvLmsh DhEgd2DFAlE960HCN2hDhkj3ioKJZ1EJFtRONwQqNaHl5gpXJsF049FUMbYUDPNFXigVb8YRXbpnMslc QrsYYEl514H329m4leGQLnovBamOsCfujiw8xsM863 FPUqgCIcuqWgXbKaOIXpnHVnaMQ5MWVcFW2leoloGQplSJyfICSahmR1JZRxmIFmO6KvDSNtEB0jtoap KPJ2WEltQMBaBMU7AtUfJMUum9Alxlu2IjJycx8gzx49OPM8a4XmhMznHME0HFL0WzUeQz8phOVxTJSy GG3lGuOawTQbHOFfvu63jIrpHMphTWD8IMSyytRcx2 Hhv3hkScLdeqZaA9mdZ9AaVAGhQTMdLUBxPiBkskKjc1Zev2XkkNXhfNz3l2veSSOdQYAftTnfo4khST U3OPIneNHlS1alwF5nVPSoHV9uradbq2dxCNpjVHdxWABckKN9mgQ7JCDyjFWzM6CghY4fEWFuTBocIA Vkmcl6BoDxHg6rjQJuaZffNXmnKdgbPJzeABKzetWw bnRccGduZGVjXHBsYWluXHBsYWluXGYwXGZzMjRccWxcbGFuZzEwMzNcaGljaFxmMVxkYmNoXGYxXGxv S0pwTyFoSwYdNgu8VEYmwEHhZGGoPky9GSHpsMGcQOLUnCxzjX9wEQPehYypsY3nxYP4WTToncHcwPAV vV9eMDOJqQ4nPjIfBIYzUoB9NTvlChGtnFIrhM7= COMMENT (test code = 3359) a1xpwBQdLDZqiLQvXcZdOUYsQMTbl6bcCRBdbQBlLiXjYqOmMlBwGdvqvIAwVYKmLmYpf4jvl427fEVe q5phBUYxRjW0oAGbIYIlgSDdK021SMPoOTpda9ixr8ErFBBtaRMpz0S9ZLFPppmtbIx6zHdpU86pe1T2 CwueJ2iuOTGeTQVgS1DcPD1qVUTaLeh0JBE8MCP4HF UtTQGhM9LeQG9bJTJleATyNWs0h7sxcWxhBZUtSJN3j0hhMBtypmMnKJ0mig0chYw0d5epbaXqBDEcLG ZzxTPQYQGbD3XsyAjpFx5fyCn1kOfoEbctXLW0Lhi4EZ5bqk62xwi6zLyeTSSuyiosVnM3TIpoWWXosg wkWKh3LYohDDZeoIjaWQyiWLZexhluEJqeROXojLhd PIigCMObVqfsBDpmBWJvOQI6UQvxh581SYK1RRkos0ztg9khlPQoLvm2WQMrMlEjKmyqCImtb5Pmq6di ZBLohu2lOGS2gAXgcLtib6C2cIOmUITitFXcjkIiJJEzOpQ0HNnjDK0ezk53KVDjPMX9hk3ljZHtnQxt lwVxvEAuGXltR3ApCOPri438WATcJ9XpWOFvi2Z5ca OtVzJyXSDjlHZ7jpR8LBGaSZc1gMNltqB2mbGczWFzQ1nefG28CmXssAPfS2LblK49YtAdkGNtL4QnnC 35JpKnoZQzW2BmdO62VgFdzIJvMNPpaUJeTr2mvUBykQWqi3GbeSRfYHdgQ83mm368UTZhekJiL8moiB KwvwmytKDrzncpMXtgkkE3JZKfANTzMGhwBLSeOUHa ZcXsfNWeEoUnNaHmdRurvBtfVTdyHzBqYHJsCNdzA3saXhMmQjHgTFBSuGTwOsoveLP8ZBKdzeWll9Ha QR7eUH38nCIjuVuzXLAaLJzeDB37iyNqWqT3vHfss6wnBN1yzTbohiFheOXsx2Rro8x6zYPsxDRzrqRs oiRjtKrlDPEbrTfjlcnmJ7UeJpErVy2wgKqpIiQvMu WwwZJoQVZsHN5vGAetY3osU3AkVBGivbFaxZHjGbFYlORdlU1psCgcHXBdTEqbIX59MTDdq86ey3JhgC ywGDBcv3WiqYQ7bVJzcQ1sz2khrTq3sJP5AD2dLUQhKPBeYLPdsFshpomnA0KfT8iyv21kCACidz1xsH IkWFUzhbAbkiVsoURqkNAjjITuGW2wGTItyl9= CPT Code(s) (test code = 3357) a5zmgBKaQIIrzDWtFlGcABOjCPGsn9qqQAHluZUaTlSmYpNcWsIiCerhcQZhEXKlFsOkz5ftu136mMDa m2mhCSRwIkC4pTFwTGFfhSGoL801u6uqo5goywPliRT1WEJnBBP3UBetsyEocbM2DJeucUJeSuC9MGik icUaESjrgxIktjAiQpo0QVEtD970NPN9lAuab9zhRX E7XHAcIZXfZcOdEc2nmJKjP968TCPvMHFHIUKsmAf7SUIgyxNkemGikYPWx639Y306a6rdMWNvxpDxbA uDluvai1fmK145FXEmfBJckfZfGhYsWETmgNGjpFB4VMXoPK4xlbhjKtShBV1iuyzdCrDjAX7rjxf2Ok NvTB1lqxsjRnGpIInsKIJuajdnYMGcn0MynehoLT4k Q0Syz2Z6gT2sdYAhASTdxKZrMiOmHHCuge2owNPsEKjxf9TwIQM9ptJ1kAGpaBZcUSRgRA32Ihcxu3Ud LdqzHNT1ENQcoyBki0Kwx8iwBkDcxvJmX4fnD3WlXOBoGVBoFNJlUvBuidHnr8Gvl8KnzMTpiLs2r8gx SCAwXGSvcFjoe2usEPK1JFKfG9N6nARjc7leTFejAW SltOE1cnepHDdnTNLqrdR0rdxyNXpoSBDwuNB9zymaJYvxGZOzHpG5nlxpSGvdQGSqWTI6QVbkd663DG Y5AAebLrzyUMqdKJPtewZwvfTsyGoeZFIgRZGcFCzxNPPrEGdlLREfGQJyDhZiuRdisIxrnQ3eDxOmSz ZnMNkmFK5yDPAcM5djxTMcUELeXVZoI3riSiZkyA3krSogXUkgdwQjRAx7ZeQ0FBddNKFvtc4= CLINICAL HISTORY (test code = 3356) n1qnqIRwSKVplWAlMgRdQSFnKWPty7pvNVXzhWNlYmNvTbRsCrAkPrttoQEvDSQnIaNgb7oee442bNGb v5cgTZLsBqN4nTDcGXYetKUmD046p7mlp6owleYlqNA2GPItEKW5TIxnhdDgvqA4NBvmiZQmWcV1RSga qqFdCJrbtkEmmtNaEhi8FSQrM043ODZ6uOtdx8gjMA R7RTWdPRRuQsHvQa6hrBQcN562VQIxLRKOQTRceTp9MDHjvxHsuhKvxFIBx936K237l9yrULQgykSlhH hFptzso7lqZ597EOQbiYDwzzKyZcGrHBHdgZPwaBW2UTGrIW0nnuwfNhGdXK7ucordCyFfAX1oqal2Td PnXC3yhemaWmAxKZojPIBxinakIQYyk1IrwefvUM3s M4Kge6A0tH4skIGhQKCvnPZeRyBkTBSfut6poANsNXgqf8EfFYB8yqR7gCTxbNMwZYWwMU83Vsdwk4Iy DbbqOFK7TVOcryXnc6Hhm5ljRvTxlrKmD5ziM1GbGDLpPVMsBCOfAyDflaKna6Hyg5VwgHFdpWa2r0bp GVQnAGSsiTdry5jtEFH1LKEoP3P1oGQki5xxHFtwHB AnuON4rdnpVWkwKAPvlvP3ykeiNNwdSXBztWR7zgoySIbxJTBtCxU9ipsaPUswVKOwFZE5NQras652QW V6HFrpZqafDZjtIXOqjjMdueKnmUzeOXEfWFRrWWixHFXxALoiVOTpRLWaGfNvoNiwaFhjgB1nJfKzDn NuYYcdWX6yBSOqW1xlsSWjWRQlHSCjD1ikFcAfnQ8faThtIQkfzsFjMNCmABXrpQ8sXCarRCZ5 SPECIMEN SOURCE (test code = 3377) x5epjQCbRFGvpJKnDdVzCSAqLTYno4cuBRPrtAVzZfOzYpKyAfMaZaaxsRIjAJNqHcGer5gpc811dYWz n2niYJQyKpU3xVXsBADxgQKfB588MIHzMOwbj6zrh0VcSMNtkHFdu3Z0TTEFiilzyNg0fJxaX29cw1F5 SwfvS1qhAUIjPErrUWCuXCncyYJbUYZ5HYLmHGK0QA xpgxRuvoZ2PMxsjZZzMiI3SUa7q4gigKivYXCtJHJ5x0krLZtazhHqJV7wsq1dsFx4d1zvduJsHJHaDE UseSMAGRMyZ4HqjYxrXc3vmHs3lVzqVpgvNMF7Naa9CW4ruu79ryf0nFruDSRvgdhuJuF6RMjdKELowk wsOZu8ULxkDUOruCdbBIvvUUGeifiqHKhzWDMopWmj VSkvYLKfAysbPNzqUPBiIBZ6CBfpn907CBH5PRizh6ixa8kcoFGlKff1YFBvSjSlSptzGHpjw5Vbf5eo ZIBqea9hIGG5zLFiqPieh0X6uMPjSKJycGTlpqLmJOQeNxT8MGzkWK3rzu49LNUbIAH1ff6ubFTieBbl liObwYXqPCaiF7StMVBra548XBEiH4XxZKSni0Y2cq JnOuJpZGPpyJP4fvS3ALUoKBe6kPTtnkU1wsTolIXkL1dorR38MjDzxQOwQ9HpaB91ZfXphBSfK9EjsM 25JkTfwCJnO1XkkJ92TgPshPEjDEFfuLCvJz1zbBOqkZYrd2UsqSZxOTwlE47ee350ULYldaIaC4kaeB FpblxwbGFpblxmMFxmczIwXHFsXHBsYWluXGYwXGZz LnCryRodxP8wYdLbQgCfWHRLOiDMi1pxygUrh8n5nAipKldixHT4TCJtcLhjeF0xSqAaEeYhDWHua63v nRUqlITmtDfojV6gJxPmMhDqZCS0KARvDNPskjBhwRYzpePjqD8vm1ecSBaklLLmlipyMZsqofKsFPEg x3WdIPh5e4ectUDvvhieTKaufaBnNORfxBNebG== GROSS DESCRIPTION (test code = 3366) c8rblSHdGEFuoIGiQaIhFLTuHORqj7baZAOrjYXwHeUiNeGpGrZgYzwvdQSvBLRbAnLvr9vwt002aXFd p5aiJMGeYxT4zZRkSXLbyZNiI631KAFbTMorw3vks9QxWEFyxXFeq7O1JCWBkzgqoYs4tRqaZ70al6I1 DnpuS6kkLJKyGGexPGZaKDkqlMVrQZR2OVUaEJT4AL vmzpLqmnE3MAzvwPVzYlB3CHp5u9vlsIkgTGRkORE0q5zwCYgrdwEaIQ7llu7jeFr2z7jzzqDnUDAxXT GjqQFQRFGxM7UkmBqlDu1cvUc9yUzjJaouODW7Sju7VJ8nni72orb7mEolPITtjhmrXgE3AFxwBGIolp jkBVa6MGrgTJVknNbzVKifLHBljcycSEriIWBjhTpc KTgyWGNiHfowHVonQCPzVCR0NPxsg107UQR1VNdai6sgi5nquGPoJvy2PFFrOkSyPpojUKqvi2Ixh2ky IADfwl9zOVV1mFSrkSeml3G7bTDyHSIrtMNlmtNnHAHxVsP3BOqkQJ0yed70MNUsLXX4cc8ohZFxyKck nxFweEYmPNgnB2FvJWFmj240JWTvJ1FlLGPgc1B0et MfOkCfVQTtfJL2djO3GJDyZOm3pSXtyaV1fgLjxVJxS1bsoK59FkGefKBtS4WcxV57IvLbkDRuW9OxwJ 99OpGjnTNnT7ReaG57HtLvkNQkBNMmpFNzWs0cgDBzeLPxx8FsoGZcRIyyX20pb163XSPvpkUyT9gqhF FpblxwbGFpblxmMFxmczIwXHFsXHBsYWluXGYwXGZz KoMqqNdxwE0oOvTdMjHxVUWAxAAmzE2cvgLVSMeyEFUmN4OdfnWyDKcvFMYgdLG5fRKpGYGcKXLgEJZu A13jwQMeSAKeEHMddGmnvC8rXdIoQtBwZVRbi71knXWgbEQugWqosQ7mIjTwPyLgFXKkWPGiOIKzp08c jBL2oeWpEbZycRb1mCFwKOIwdE1aHPUjhpU6jXTwaS OhHcCpB46utuDxSIinmIIjazhxJDpemxWkCQOzothzxznosDsnqU3yGtZsJtFnTRBkqG9ao7v6TMNnbh 2kLMLsETF4fePlSoXxV84mbY8iN4CfMRNdc0DzESlfYM6alF5lLmNHsPutaDkcv0BmHKKgXMnkXB98ii JxkxXmh8KldLq7yHOsIFmyhN6lKDBoULvgGBLioPEa ANVhNHItrAEfXULrqGUbhmYiVDl1GEEqcQ5uQbk8OSRnryMwVX7xVGHoa6uxjcV7AUZrZAAuJtkgsWAd aoggQFyswrVxJNYuj2YpZAn2k2iqkUAnwrqnAGgwiyBuIQLvGQ0zHSOepwRyy8OfPH6cSPDhpqOdNZRd xxyeqZEhLEGvl1Z9WTCbllXgsWXiyGCrUHWpICjfPX YzEUOcEdOvrqBoS8xxN9derIVzhoouUAcfovQoSZLetvRkpBydDLIgu08kKM8qRAAjNQBlUFYlyZDahd MoxiNnyXMfvFJjgB6dkfJkm88iYJFidJG7dIEfnKOdBwZeY69opxIwQRVaMGSrlYxivO7fMkGhKqElTR LezAUhvSU5JCFrhLuonN4bTtLxFiOiAFUpxC35laPEJK9iEMDMEx9aiOKniZSzcI== MICROSCOPIC DESCRIPTION (test code = 3371) v8xroBAgEYYueGCpDwHoVHJmOTBrh4wdWKImdWFwBlQyAgMzLoLbWwypfNNiZMKyLqZfu5fpu775kAQn j8boWDKnLaL2mNElCTGisEVgQ445k6wqn4boqjJslCW8JZUhWYS1CIqrbgBmzhW0GHldeXChMxQ5LDfl aeRsTCpqkfXkgsKvVpx9ZRAaW770CEI2lXymv6akAK U7PUJuRBPkYyDzPu3ndDZnJ250KCNjOIBXUKCbsCo5TALlxqCxmeNvkDLWy311D964r3szZHLssbSwgX aGjvcif4spD930FLWovUTvqpUzLtLdAPAlbPNbzSP0SEUjHQ3vpydaBqSaBJ0awhutQsEkNE9otkh9Br JoES3nalgoEySvVUpaCBBzlzniXVDzn4LxlcoyFZ6k O2Ady6N3yH9bjOQsZCBpiRFiVpQzUWNhix0lrZWrTZzmu6YyZCU2vsE8oSErpIOgLNDfHA65Slyym2Ar UrdsRKQ9WXUdopDvx4Rcu3stVqJlmkQlM3imT8YiRQSoDJCaAFMpIzQgvdVvt1Wff3QtgLTsaLg5v4jm VGWbXQErmQrgq2mvRBJ7VBSdN8W4jBRdq4zzSGyzOC RsqLT0gikcNJdjWPMrgoR6ypbdJGvcVGMdaAI9ktlxKJnnDCBiNhY2gflrQAkuBODgIZL6XAvnz270XM F2ZNazDluzIGdkCSVvzyEmbaHmcFomOIGyMNMkJMaeEUUlRPuhGGWdTNErEvIglCoyvJgffA2eVjVkDs RlBHzhAF7mUPJqW6kzjDTbSGZcPUOeD4lhOtIqfF 1mnRpzQEyigkDpLZRuObxrSRGvAc2plCQoBLyzVCN4 Gross assessment was performed at (test code = 2777) [facility], Department of Pathology, [address] [place] [address], Technical component was performed at (test code = 2778 ) [facility], Department of Pathology, [address] [place] [address] [place] [address], Professional component was performed at (test code = 2 218) [facility], Department of Pathology, [address] [place] [address], [facility] HospitalTISS[facility] [id number] 10:22:00Surgical Pathology Report Case: [id number] Authorizing Provider: Arron Carreno MD Collected: 02/23/2019 0818 Ordering Location: [address] Med/Surg Received: 02/23/2019 0932 Pathologist: Sana Muhammad MD Specimens: A) - Esophagus, lower polyp biopsy B) - Esophagus, Willis's biopsy A. ESOPHAGUS, LOWER POLYP, BIOPSY: - FRAGMENTS OF COLUMNAR MUCOSA WITH EXTENSIVE ULCERATION AND AT LEAST HIGH-GRADE DYSPLASIA (SEE COMMENT)B. ESOPHAGUS, BIOPSY: - SQUAMOCOLUMNAR MUCOSA WITH INTESTINAL METAPLASIA - NO DYSPLASIA OR MALIGNANCY SEEN Signing Pathologi st Direct Phone Line: [phone] signed by Sana Muhammad MD on 02/24/2019 at 10:22 AMThe biopsy consists of multiple fragments of vi lloglandular mucosa with extensive ulceration, cribriforming of glands and high- grade nuclei. Due to the fragmentation of the biopsy the possiblitity of an unde rlying carcinoma cannot be entirely excluded. [id number] A. Lower polyp, b iopsy, esophagus; B. Willis's biopsy, esophagus Specimen A is received in fixat reggie and designated as "esophagus" and consists of multiple pink-baltazar tissue fragm ents ranging in size from 0.1 to 0.3 cm in greatest dimension. All tissue fragme nts are submitted into A1. Specimen B is received in fixative and designated as "esophagus" and consists of three pink-baltazar tissue fragments ranging in size from 0.1 to 0.5 cm in greatest dimension. All tissue fragments are submitted into B1. MG/pl A-B: Performed [facility], Department of Pathology, [address] [place] [address], [place] [facility], Department of Pathology, [address] [place] [address], [facility]St[facility], [facility], [address] [place] [address], EVVV-GLUCOSE [id number] 07:02:00* Test Item Value Reference Range Interpretation Comments POC-GLUCOSE METER (BEAKER) (test code = 1538) 132 mg/dL 70-110 H : Notified RN/MD: [facility] AT [facility] [address] [facility] [address]: Chainer/Molding Machine Operator ID = [id number] for Tiki Bernstein [id number] 06:30:00* Test Item Value Reference Range Interpretation Comments MAGNESIUM (BEAKER) (test code = 627) 2.2 mg/dL 1.5-3.0 BASIC METABOLIC [id number] 06:29:00* Test Item Value Reference Range Interpretation Comments SODIUM (BEAKER) (test code = 381) 137 meq/L 135-148 POTASSIUM (BEAKER) (test code = 379) 4.4 meq/L 3.6-5.5 CHLORIDE (BEAKER) (test code = 382) 100 meq/L 98-106 CO2 (BEAKER) (test code = 355) 27 meq/L 20-29 BLOOD UREA NITROGEN (BEAKER) (test code = 354) 45 mg/dL 10-26 H CREATININE (BEAKER) (test code = 358) 6.94 mg/dL 0.50-1.20 H GLUCOSE RANDOM (BEAKER) (test code = 652) 138 mg/dL 70-110 H CALCIUM (BEAKER) (test code = 697) 10.0 mg/dL 8.5-10.5 EGFR (BEAKER) (test code = 1092) 8 mL/min/1.73 sq m ESTIMATED GFR IS NOT ACCURATE CREATININE CLEARANCE IN PREDICTING GLOMERULAR FILTRATION RATE. ESTIMATED GFR IS NOT APPLICABLE FOR DIALYSIS PATIENTS. [id number] 06:27:00* Test Item Value Reference Range Interpretation Comments PHOSPHORUS (BEAKER) (test code = 604) 2.2 mg/dL 2.5-4.5 L CBC W/PLT COUNT & AUTO [id number] 06:13:00* Test Item Value Reference Range Interpretation Comments WHITE BLOOD CELL COUNT (BEAKER) (test code = 775) 4.7 K/ L 4.0- 10.0 RED BLOOD CELL COUNT (BEAKER) (test code = 761) 2.44 M/ L 4.20-5 .80 L HEMOGLOBIN (BEAKER) (test code = 410) 7.5 GM/DL 13.0-16.8 L HEMATOCRIT (BEAKER) (test code = 411) 23.4 % 36.0-50.0 L MEAN CORPUSCULAR VOLUME (BEAKER) (test code = 753) 95.9 fL 82. 0-99.0 MEAN CORPUSCULAR HEMOGLOBIN (BEAKER) (test code = 751) 30.7 pg 27.0-33.0 MEAN CORPUSCULAR HEMOGLOBIN CONC (BEAKER) (test code = 752) 32.1 GM/DL 32.0-36.0 RED CELL DISTRIBUTION WIDTH (BEAKER) (test code = 412) 16.7 % 12.0-15.0 H PLATELET COUNT (BEAKER) (test code = 756) 111 K/CU MM 150-430 L MEAN PLATELET VOLUME (BEAKER) (test code = 754) 9.7 fL 6.0-11 .5 NUCLEATED RED BLOOD CELLS (BEAKER) (test code = 413) 0 /100 WBC 0 -0 NEUTROPHILS RELATIVE PERCENT (BEAKER) (test code = 429) 80 % LYMPHOCYTES RELATIVE PERCENT (BEAKER) (test code = 430) 11 % MONOCYTES RELATIVE PERCENT (BEAKER) (test code = 431) 6 % EOSINOPHILS RELATIVE PERCENT (BEAKER) (test code = 432) 3 % BASOPHILS RELATIVE PERCENT (BEAKER) (test code = 437) 0 % NEUTROPHILS ABSOLUTE COUNT (BEAKER) (test code = 670) 3.77 K/ L 1.80-8.00 LYMPHOCYTES ABSOLUTE COUNT (BEAKER) (test code = 414) 0.53 K/ L 1.48-4.50 L MONOCYTES ABSOLUTE COUNT (BEAKER) (test code = 415) 0.27 K/ L 0. 00-1.30 EOSINOPHILS ABSOLUTE COUNT (BEAKER) (test code = 416) 0.13 K/ L 0.00-0.50 BASOPHILS ABSOLUTE COUNT (BEAKER) (test code = 417) 0.02 K/ L 0. 00-0.20 IMMATURE GRANULOCYTES-RELATIVE PERCENT (BEAKER) (test code = 2801) 0 % 0-0 POCT-GLUCOSE [id number] 21:07:00* Test Item Value Reference Range Interpretation Comments POC-GLUCOSE METER (BEAKER) (test code = 1538) 211 mg/dL 70-110 H : Notified RN/MD: TESTED AT [place] [id number]: Chainer/Molding Machine Operator ID = [id number] for Tiki Bernstein Hepatitis B surface [id number] 18:59:00* Test Item Value Reference Range Interpretation Comments Hep B S Ab (test code = 22488-9) 31.5 <8.0 mIU/mL H Lab Interpretation (test code = 16293-7) [facility] [id number] 18:59:00* Test Item Value Reference Range Interpretation Comments HEPATITIS B SURFACE ANTIBODY (BEAKER) (test code = 647) 31.5 mIU/mL <8.0 H POCT-GLUCOSE [id number] 13:45:00* Test Item Value Reference Range Interpretation Comments POC-GLUCOSE METER (BEAKER) (test code = 1538) 124 mg/dL 70-110 H : TESTED AT [place] [id number]: Chainer/Molding Machine Operator ID = [id number] for Vikki Dimas HEPATITIS B SURFACE [id number] 11:06:00* Test Item Value Reference Range Interpretation Comments HEPATITIS B SURFACE ANTIGEN (2) (BEAKER) (test code = 2585) Nonreactive Nonreactive POCT-GLUCOSE [id number] 06:48:00* Test Item Value Reference Range Interpretation Comments POC-GLUCOSE METER (BEAKER) (test code = 1538) 131 mg/dL 70-110 H : Notified RN/MD: TESTED AT [address] [address]: Chainer/Molding Machine Operator ID = [id number] for Tiki Bernstein TROPONIN [id number] 06:13:00* Test Item Value Reference Range Interpretation Comments TROPONIN I (BEAKER) (test code = 397) 0.06 ng/mL 0.00-0.15 Troponin I (TnI) levels must be interpreted in the context of the presenting sym ptoms and the clinical findings. Elevated TnI levels indicate myocardial damage, but are not specific for ischemic heart disease. Elevated TnI levels are seen in patients with other cardiac conditions (including myocarditis and congestive h eart failure), and slight TnI elevations occur in patients with other conditions , including sepsis, renal failure, acidosis, acute neurological disease, and per sistent tachyarrhythmia.BASIC METABOLIC [id number] 06:09:00* Test Item Value Reference Range Interpretation Comments SODIUM (BEAKER) (test code = 381) 135 meq/L 135-148 POTASSIUM (BEAKER) (test code = 379) 4.8 meq/L 3.6-5.5 CHLORIDE (BEAKER) (test code = 382) 97 meq/L 98-106 L CO2 (BEAKER) (test code = 355) 26 meq/L 20-29 BLOOD UREA NITROGEN (BEAKER) (test code = 354) 70 mg/dL 10-26 H CREATININE (BEAKER) (test code = 358) 8.42 mg/dL 0.50-1.20 H GLUCOSE RANDOM (BEAKER) (test code = 652) 133 mg/dL 70-110 H CALCIUM (BEAKER) (test code = 697) 10.3 mg/dL 8.5-10.5 EGFR (BEAKER) (test code = 1092) 7 mL/min/1.73 sq m ESTIMATED GFR IS NOT ACCURATE CREATININE CLEARANCE IN PREDICTING GLOMERULAR FILTRATION RATE. ESTIMATED GFR IS NOT APPLICABLE FOR DIALYSIS PATIENTS. [id number] 06:06:00* Test Item Value Reference Range Interpretation Comments MAGNESIUM (BEAKER) (test code = 627) 2.3 mg/dL 1.5-3.0 [id number] 06:04:00* Test Item Value Reference Range Interpretation Comments PHOSPHORUS (BEAKER) (test code = 604) 2.1 mg/dL 2.5-4.5 L CBC W/PLT COUNT & AUTO [id number] 05:52:00* Test Item Value Reference Range Interpretation Comments WHITE BLOOD CELL COUNT (BEAKER) (test code = 775) 4.5 K/ L 4.0- 10.0 RED BLOOD CELL COUNT (BEAKER) (test code = 761) 2.37 M/ L 4.20-5 .80 L HEMOGLOBIN (BEAKER) (test code = 410) 7.3 GM/DL 13.0-16.8 L HEMATOCRIT (BEAKER) (test code = 411) 22.5 % 36.0-50.0 L MEAN CORPUSCULAR VOLUME (BEAKER) (test code = 753) 94.9 fL 82. 0-99.0 MEAN CORPUSCULAR HEMOGLOBIN (BEAKER) (test code = 751) 30.8 pg 27.0-33.0 MEAN CORPUSCULAR HEMOGLOBIN CONC (BEAKER) (test code = 752) 32.4 GM/DL 32.0-36.0 RED CELL DISTRIBUTION WIDTH (BEAKER) (test code = 412) 17.0 % 12.0-15.0 H PLATELET COUNT (BEAKER) (test code = 756) 100 K/CU MM 150-430 L MEAN PLATELET VOLUME (BEAKER) (test code = 754) 10.0 fL 6.0-11 .5 NUCLEATED RED BLOOD CELLS (BEAKER) (test code = 413) 0 /100 WBC 0 -0 NEUTROPHILS RELATIVE PERCENT (BEAKER) (test code = 429) 82 % LYMPHOCYTES RELATIVE PERCENT (BEAKER) (test code = 430) 10 % MONOCYTES RELATIVE PERCENT (BEAKER) (test code = 431) 5 % EOSINOPHILS RELATIVE PERCENT (BEAKER) (test code = 432) 2 % BASOPHILS RELATIVE PERCENT (BEAKER) (test code = 437) 0 % NEUTROPHILS ABSOLUTE COUNT (BEAKER) (test code = 670) 3.68 K/ L 1.80-8.00 LYMPHOCYTES ABSOLUTE COUNT (BEAKER) (test code = 414) 0.46 K/ L 1.48-4.50 L MONOCYTES ABSOLUTE COUNT (BEAKER) (test code = 415) 0.21 K/ L 0. 00-1.30 EOSINOPHILS ABSOLUTE COUNT (BEAKER) (test code = 416) 0.11 K/ L 0.00-0.50 BASOPHILS ABSOLUTE COUNT (BEAKER) (test code = 417) 0.02 K/ L 0. 00-0.20 IMMATURE GRANULOCYTES-RELATIVE PERCENT (BEAKER) (test code = 2801) 0 % 0-0 POCT-GLUCOSE [id number] 20:56:00* Test Item Value Reference Range Interpretation Comments POC-GLUCOSE METER (BEAKER) (test code = 1538) 211 mg/dL 70-110 H : Notified RN/MD: TESTED AT [place] [address]: Chainer/Molding Machine Operator ID = [id number] for Tiki Bernstein POCT-GLUCOSE [id number] 16:32:00* Test Item Value Reference Range Interpretation Comments POC-GLUCOSE METER (BEAKER) (test code = 1538) 158 mg/dL 70-110 H : TESTED AT [place] [address]: Chainer/Molding Machine Operator ID = [id number] for Jose, Ayinor POCT-GLUCOSE [id number] 11:55:00* Test Item Value Reference Range Interpretation Comments POC-GLUCOSE METER (BEAKER) (test code = 1538) 173 mg/dL 70-110 H : TESTED AT [place] [address]: Chainer/Molding Machine Operator ID = [id number] for Jose, Ayinor POCT-GLUCOSE [id number] 06:08:00* Test Item Value Reference Range Interpretation Comments POC-GLUCOSE METER (BEAKER) (test code = 1538) 153 mg/dL 70-110 H : Notified RN/MD: TESTED AT [place] [address]: Chainer/Molding Machine Operator ID = [id number] for Josee Huynh BASIC METABOLIC [id number] 05:33:00* Test Item Value Reference Range Interpretation Comments SODIUM (BEAKER) (test code = 381) 136 meq/L 135-148 POTASSIUM (BEAKER) (test code = 379) 4.6 meq/L 3.6-5.5 CHLORIDE (BEAKER) (test code = 382) 98 meq/L 98-106 CO2 (BEAKER) (test code = 355) 28 meq/L 20-29 BLOOD UREA NITROGEN (BEAKER) (test code = 354) 56 mg/dL 10-26 H CREATININE (BEAKER) (test code = 358) 6.78 mg/dL 0.50-1.20 H GLUCOSE RANDOM (BEAKER) (test code = 652) 163 mg/dL 70-110 H CALCIUM (BEAKER) (test code = 697) 10.0 mg/dL 8.5-10.5 EGFR (BEAKER) (test code = 1092) 8 mL/min/1.73 sq m ESTIMATED GFR IS NOT ACCURATE CREATININE CLEARANCE IN PREDICTING GLOMERULAR FILTRATION RATE. ESTIMATED GFR IS NOT APPLICABLE FOR DIALYSIS PATIENTS. 2 hours after [id number] 05:24:00* Test Item Value Reference Range Interpretation Comments MAGNESIUM (BEAKER) (test code = 627) 2.3 mg/dL 1.5-3.0 2 hours after [id number] 05:21:00* Test Item Value Reference Range Interpretation Comments PHOSPHORUS (BEAKER) (test code = 604) 2.2 mg/dL 2.5-4.5 L 2 hours after HDCBC W/PLT COUNT & AUTO [id number] 05:08:00* Test Item Value Reference Range Interpretation Comments WHITE BLOOD CELL COUNT (BEAKER) (test code = 775) 4.7 K/ L 4.0- 10.0 RED BLOOD CELL COUNT (BEAKER) (test code = 761) 2.58 M/ L 4.20-5 .80 L HEMOGLOBIN (BEAKER) (test code = 410) 8.0 GM/DL 13.0-16.8 L HEMATOCRIT (BEAKER) (test code = 411) 24.1 % 36.0-50.0 L MEAN CORPUSCULAR VOLUME (BEAKER) (test code = 753) 93.4 fL 82. 0-99.0 MEAN CORPUSCULAR HEMOGLOBIN (BEAKER) (test code = 751) 31.0 pg 27.0-33.0 MEAN CORPUSCULAR HEMOGLOBIN CONC (BEAKER) (test code = 752) 33.2 GM/DL 32.0-36.0 RED CELL DISTRIBUTION WIDTH (BEAKER) (test code = 412) 17.0 % 12.0-15.0 H PLATELET COUNT (BEAKER) (test code = 756) 119 K/CU MM 150-430 L MEAN PLATELET VOLUME (BEAKER) (test code = 754) 10.3 fL 6.0-11 .5 NUCLEATED RED BLOOD CELLS (BEAKER) (test code = 413) 0 /100 WBC 0 -0 NEUTROPHILS RELATIVE PERCENT (BEAKER) (test code = 429) 81 % LYMPHOCYTES RELATIVE PERCENT (BEAKER) (test code = 430) 13 % MONOCYTES RELATIVE PERCENT (BEAKER) (test code = 431) 4 % EOSINOPHILS RELATIVE PERCENT (BEAKER) (test code = 432) 2 % BASOPHILS RELATIVE PERCENT (BEAKER) (test code = 437) 0 % NEUTROPHILS ABSOLUTE COUNT (BEAKER) (test code = 670) 3.80 K/ L 1.80-8.00 LYMPHOCYTES ABSOLUTE COUNT (BEAKER) (test code = 414) 0.61 K/ L 1.48-4.50 L MONOCYTES ABSOLUTE COUNT (BEAKER) (test code = 415) 0.18 K/ L 0. 00-1.30 EOSINOPHILS ABSOLUTE COUNT (BEAKER) (test code = 416) 0.08 K/ L 0.00-0.50 BASOPHILS ABSOLUTE COUNT (BEAKER) (test code = 417) 0.02 K/ L 0. 00-0.20 IMMATURE GRANULOCYTES-RELATIVE PERCENT (BEAKER) (test code = 2801) 0 % 0-0 TROPONIN [id number] 00:44:00* Test Item Value Reference Range Interpretation Comments TROPONIN I (BEAKER) (test code = 397) 0.07 ng/mL 0.00-0.15 Troponin I (TnI) levels must be interpreted in the context of the presenting sym ptoms and the clinical findings. Elevated TnI levels indicate myocardial damage, but are not specific for ischemic heart disease. Elevated TnI levels are seen in patients with other cardiac conditions (including myocarditis and congestive h eart failure), and slight TnI elevations occur in patients with other conditions , including sepsis, renal failure, acidosis, acute neurological disease, and per sistent tachyarrhythmia.POCT-GLUCOSE [id number] 21:56:00* Test Item Value Reference Range Interpretation Comments POC-GLUCOSE METER (BEAKER) (test code = 1538) 180 mg/dL 70-110 H : Notified RN/MD: TESTED AT [place] [address]: Chainer/Molding Machine Operator ID = [id number] for LinoMunaa POCT-GLUCOSE [id number] 18:41:00* Test Item Value Reference Range Interpretation Comments POC-GLUCOSE METER (BEAKER) (test code = 1538) 147 mg/dL 70-110 H : TESTED AT [place] [id number]: Chainer/Molding Machine Operator ID = [id number] for Jose, Ayinor POCT-GLUCOSE [id number] 17:09:00* Test Item Value Reference Range Interpretation Comments POC-GLUCOSE METER (BEAKER) (test code = 1538) 156 mg/dL 70-110 H : TESTED AT [place] [address]: Chainer/Molding Machine Operator ID = [id number] for Ambrose, Julia POCT-GLUCOSE [id number] 15:37:00* Test Item Value Reference Range Interpretation Comments POC-GLUCOSE METER (BEAKER) (test code = 1538) 128 mg/dL 70-110 H : TESTED AT [place] [address]: Chainer/Molding Machine Operator ID = [id number] for Ambrose, Julia POCT-GLUCOSE [id number] 14:29:00* Test Item Value Reference Range Interpretation Comments POC-GLUCOSE METER (BEAKER) (test code = 1538) 131 mg/dL 70-110 H : TESTED AT [place] [address]: Chainer/Molding Machine Operator ID = [id number] for Ambrose, Julia POCT-GLUCOSE [id number] 13:18:00* Test Item Value Reference Range Interpretation Comments POC-GLUCOSE METER (BEAKER) (test code = 1538) 128 mg/dL 70-110 H : TESTED AT [place] [address]: Chainer/Molding Machine Operator ID = [id number] for Ambrose, Julia POCT-GLUCOSE [id number] 12:11:00* Test Item Value Reference Range Interpretation Comments POC-GLUCOSE METER (BEAKER) (test code = 1538) 127 mg/dL 70-110 H : TESTED AT [place] [address]: Chainer/Molding Machine Operator ID = [id number] for Ambrose, Julia POCT-GLUCOSE [id number] 11:15:00* Test Item Value Reference Range Interpretation Comments POC-GLUCOSE METER (BEAKER) (test code = 1538) 89 mg/dL 70-110 : TESTED AT [place] [address]: Chainer/Molding Machine Operator ID = [id number] for Ambrose, Julia POCT-GLUCOSE [id number] 09:45:00* Test Item Value Reference Range Interpretation Comments POC-GLUCOSE METER (BEAKER) (test code = 1538) 67 mg/dL 70-110 L : TESTED AT [place] [address]: Chainer/Molding Machine Operator ID = [id number] for Julia Ambrose POCT-GLUCOSE [id number] 07:29:00* Test Item Value Reference Range Interpretation Comments POC-GLUCOSE METER (BEAKER) (test code = 1538) 80 mg/dL 70-110 : TESTED AT [place] [address]: Chainer/Molding Machine Operator ID = [id number] for Julia Ambrose POCT-GLUCOSE [id number] 06:34:00* Test Item Value Reference Range Interpretation Comments POC-GLUCOSE METER (BEAKER) (test code = 1538) 123 mg/dL 70-110 H : Notified RN/MD: TESTED AT [place] [address]: Chainer/Molding Machine Operator ID = [id number] for Anabel He TROPONIN [id number] 06:13:00* Test Item Value Reference Range Interpretation Comments TROPONIN I (BEAKER) (test code = 397) < ng/mL 0.00-0.15 Troponin I (TnI) levels must be interpreted in the context of the presenting sym ptoms and the clinical findings. Elevated TnI levels indicate myocardial damage, but are not specific for ischemic heart disease. Elevated TnI levels are seen in patients with other cardiac conditions (including myocarditis and congestive h eart failure), and slight TnI elevations occur in patients with other conditions , including sepsis, renal failure, acidosis, acute neurological disease, and per sistent tachyarrhythmia.BASIC METABOLIC [id number] 06:11:00* Test Item Value Reference Range Interpretation Comments SODIUM (BEAKER) (test code = 381) 133 meq/L 135-148 L POTASSIUM (BEAKER) (test code = 379) 4.0 meq/L 3.6-5.5 CHLORIDE (BEAKER) (test code = 382) 98 meq/L 98-106 CO2 (BEAKER) (test code = 355) 22 meq/L 20-29 BLOOD UREA NITROGEN (BEAKER) (test code = 354) 91 mg/dL 10-26 H CREATININE (BEAKER) (test code = 358) 8.45 mg/dL 0.50-1.20 H GLUCOSE RANDOM (BEAKER) (test code = 652) 182 mg/dL 70-110 H CALCIUM (BEAKER) (test code = 697) 17.5 mg/dL 8.5-10.5 HH EGFR (BEAKER) (test code = 1092) 7 mL/min/1.73 sq m ESTIMATED GFR IS NOT ACCURATE CREATININE CLEARANCE IN PREDICTING GLOMERULAR FILTRATION RATE. ESTIMATED GFR IS NOT APPLICABLE FOR DIALYSIS PATIENTS. POCT-GLUCOSE [id number] 04:59:00* Test Item Value Reference Range Interpretation Comments POC-GLUCOSE METER (BEAKER) (test code = 1538) 209 mg/dL 70-110 H : TESTED AT [address] [address]: Chainer/Molding Machine Operator ID = [id number] for Chet Camarena POCT-GLUCOSE [id number] 04:54:00* Test Item Value Reference Range Interpretation Comments POC-GLUCOSE METER (BEAKER) (test code = 1538) 262 mg/dL 70-110 H : TESTED AT [address] [address]: Chainer/Molding Machine Operator ID = [id number] for Bill Boo RAD, CHEST, 1 VIEW, NON [id number] 04:22:00Reason for exam:->Chest PainFINAL REPORT INDICATION: Chest Pain COMPARISON: 02/02/2019 TECHNIQUE: Single frontal view of the chest. FINDINGS: Lungs and pleura: Mild c entral pulmonary venous congestion without airspace consolidation or effusion. Heart and mediastinum: Stable mildly enlarged heart. Unremarkable mediastinal contours.Osseous structures: No acute abnormality.Other: None. IMPRESSION: No a cute intrathoracic abnormality. . Signed: Yoni Jones MDReport Verified Date/Ti me: 02/20/2019 04:22:39 Electronically signed by: YONI JONES MD on 1 04/23/2018 04:22 AM [id number] 03:45:00* Test Item Value Reference Range Interpretation Comments PTT (test code = 37944-6) 29.2 23.0- 35.0 sec VLADIMIR (test code = VLADIMIR) Final Information (Auto Output) Lab Interpretation (test code = 46109-5) [facility][id number] 03:45:00* Test Item Value Reference Range Interpretation Comments PROTIME (BEAKER) (test code = 759) 12.2 sec 9.3-12.0 H INR (BEAKER) (test code = 370) 1.1 <=5.9 RECOMMENDED COUMADIN/WARFARIN INR THERAPY RANGESSTANDARD DOSE: 2.0 - 3.0 Inclu ольга: PROPHYLAXIS for venous thrombosis, systemic embolization; TREATMENT for humza ous thrombosis and/or pulmonary embolus.HIGH RISK: Target INR is 2.5-3.5 for pat ients with mechanical heart valves.Final Information (Auto Output)Final Informat ion (Auto Output)[id number] 03:45:00* Test Item Value Reference Range Interpretation Comments PARTIAL THROMBOPLASTIN TIME (BEAKER) (test code = 760) 29.2 sec 23.0-35.0 Final Information (Auto Output)TROPONIN [id number] 03:39:00* Test Item Value Reference Range Interpretation Comments TROPONIN I (BEAKER) (test code = 397) < ng/mL 0.00-0.15 Troponin I (TnI) levels must be interpreted in the context of the presenting sym ptoms and the clinical findings. Elevated TnI levels indicate myocardial damage, but are not specific for ischemic heart disease. Elevated TnI levels are seen in patients with other cardiac conditions (including myocarditis and congestive h eart failure), and slight TnI elevations occur in patients with other conditions , including sepsis, renal failure, acidosis, acute neurological disease, and per sistent tachyarrhythmia.B-type natriuretic factor (BNP)2019-02-20 03:35:00* Test Item Value Reference Range Interpretation Comments BNP (test code = 19731-8) 1043 pg/mL 0-100 H Lab Interpretation (test code = 53335-9) [facility]normal [facility] [id number] 03:35:00* Test Item Value Reference Range Interpretation Comments SODIUM (BEAKER) (test code = 381) 131 meq/L 135-148 L POTASSIUM (BEAKER) (test code = 379) 6.7 meq/L 3.6-5.5 HH CHLORIDE (BEAKER) (test code = 382) 95 meq/L 98-106 L CO2 (BEAKER) (test code = 355) 24 meq/L 20-29 BLOOD UREA NITROGEN (BEAKER) (test code = 354) 95 mg/dL 10-26 H CREATININE (BEAKER) (test code = 358) 8.91 mg/dL 0.50-1.20 H GLUCOSE RANDOM (BEAKER) (test code = 652) 227 mg/dL 70-110 H CALCIUM (BEAKER) (test code = 697) 9.2 mg/dL 8.5-10.5 EGFR (BEAKER) (test code = 1092) 6 mL/min/1.73 sq m ESTIMATED GFR IS NOT ACCURATE CREATININE CLEARANCE IN PREDICTING GLOMERULAR FILTRATION RATE. ESTIMATED GFR IS NOT APPLICABLE FOR DIALYSIS PATIENTS. B-TYPE NATRIURETIC FACTOR (BNP)2019-02-20 03:35:00* Test Item Value Reference Range Interpretation Comments B-TYPE NATRIURETIC PEPTIDE (BEAKER) (test code = 700) 1043 pg/mL 0-100 H [id number] 03:33:00* Test Item Value Reference Range Interpretation Comments MAGNESIUM (BEAKER) (test code = 627) 2.2 mg/dL 1.5-3.0 Procedural [id number] 03:25:03Ludwig Prince MD 02/20/2019 8:30 AM Procedural sedationPerformed by: Ludwig Prince MDAuthorized by: Ludwig Prince MD Consent: Consent obtained: Emergent situation See paper consent form.Indications: Sedation is required to allow for: pacing. Procedure necessitating sedation performed by: Physician performing sedationPre-sedation assessment: Clinician reviewed the following: allergies, anesthesia history, family history, patient summary, pertinent labs, problem list, family history of anesthetic complications and social history reviewed NPO status caution: urgency dictates proceeding with non-ideal NPO status ASA classification: class 2 - patient with mild systemic disease Neck mobility: normal Mouth openin or more finger widths Mallampati score: I - soft palate, uvula, fauces, pillars visible History of difficult intubation: no Immediate pre- procedure details: Reassessment: Patient reassessed immediately prior to procedure Procedure details (see MAR for exact dosages): Sedation level: moderate (conscious) sedation, Preoxygenation: Nasal cannula Sedation: Ke tamine Intra-procedure monitoring: Blood pressure monitoring, lunchroom monitor, continuous pulse oximetry, frequent LOC assessments and frequent vital sign charity cks Intra-procedure events: none Post Sedation Evaluation: Respiration: airway patent and returned to pre-procedure baselinsMental Status: returned to pre-pro cedure baseline.Cardiovascular Function: returned to pre-procedure baseline and post-procedural lunchroom monitor reviewed The following have been reviewed and fo und to be within acceptable parameters: RR, HR, pulse ox, BP and temp Pain Scale : 0/10 Nausea/Vomiting: noHydration status: wnlTemperature within expected para meters :Temperature within defined limits @HSEDMULTIPLEVITALS@ [facility] Hospitaltranscutaneous [id number] 03:25:03Ludwig Prince MD 02/20/2019 8:30 AMTranscutaneous pacingPerformed by: Ludwig Prince MDAuthorized by: Jose Stevenson MD Consent: Verbal consent obtained.Risks and benefits: risks, benefits and alternatives were discussedConsent given by: patientPatient understanding: patient states understanding of the procedure being performedPatient consent: the patient's understanding of the procedure m atches consent givenProcedure consent: procedure consent matches procedure sched uledRelevant documents: relevant documents present and verifiedTest results: harry t results available and properly labeledSite marked: the operative site was zaynab edImaging studies: imaging studies availableRequired items: required blood produ cts, implants, devices, and special equipment availablePatient identity confirme d: arm band Sedation:Patient sedated: yes Cardioversion basis: emergentPre-proce dure rhythm: junctional rhythmPatient position: patient was placed in a supine p ositionChest area: chest area exposedElectrodes: padsElectrodes placed: anterior -posteriorNumber of attempts: 1Post-procedure rhythm: normal sinus rhythmComplic ations: no complicationsPatient tolerance: Patient tolerated the procedure well with no immediate complicationsImmediate Post-Procedure Note Date/Time: 02/21/20 19 8:30 AMAssistants to the procedure: NonePre-procedure diagnosis: junctional b radycardiaPost-procedure diagnosis: NSRProcedures Performed: transcutaneous paci ngSpecimens removed: NoneEstimated blood loss (mL): NoneComplications: NoneType of anesthesia: NoneGrafts or Implants: None [facility] HospitalPOCT- [facility] [id number] 03:23:00* Test Item Value Reference Range Interpretation Comments POC-GLUCOSE METER (BEAKER) (test code = 1538) 220 mg/dL 70-110 H : TESTED AT [address] [address]: Chainer/Molding Machine Operator ID = [id number] for Bill Boo CBC W/PLT COUNT & AUTO [id number] 03:12:00* Test Item Value Reference Range Interpretation Comments WHITE BLOOD CELL COUNT (BEAKER) (test code = 775) 3.6 K/ L 4.0- 10.0 L RED BLOOD CELL COUNT (BEAKER) (test code = 761) 2.49 M/ L 4.20-5 .80 L HEMOGLOBIN (BEAKER) (test code = 410) 7.6 GM/DL 13.0-16.8 L HEMATOCRIT (BEAKER) (test code = 411) 23.8 % 36.0-50.0 L MEAN CORPUSCULAR VOLUME (BEAKER) (test code = 753) 95.6 fL 82. 0-99.0 MEAN CORPUSCULAR HEMOGLOBIN (BEAKER) (test code = 751) 30.5 pg 27.0-33.0 MEAN CORPUSCULAR HEMOGLOBIN CONC (BEAKER) (test code = 752) 31.9 GM/DL 32.0-36.0 L RED CELL DISTRIBUTION WIDTH (BEAKER) (test code = 412) 16.7 % 12.0-15.0 H PLATELET COUNT (BEAKER) (test code = 756) 104 K/CU MM 150-430 L MEAN PLATELET VOLUME (BEAKER) (test code = 754) 10.0 fL 6.0-11 .5 NUCLEATED RED BLOOD CELLS (BEAKER) (test code = 413) 0 /100 WBC 0 -0 NEUTROPHILS RELATIVE PERCENT (BEAKER) (test code = 429) 80 % LYMPHOCYTES RELATIVE PERCENT (BEAKER) (test code = 430) 16 % MONOCYTES RELATIVE PERCENT (BEAKER) (test code = 431) 3 % EOSINOPHILS RELATIVE PERCENT (BEAKER) (test code = 432) 0 % BASOPHILS RELATIVE PERCENT (BEAKER) (test code = 437) 0 % NEUTROPHILS ABSOLUTE COUNT (BEAKER) (test code = 670) 2.89 K/ L 1.80-8.00 LYMPHOCYTES ABSOLUTE COUNT (BEAKER) (test code = 414) 0.56 K/ L 1.48-4.50 L MONOCYTES ABSOLUTE COUNT (BEAKER) (test code = 415) 0.12 K/ L 0. 00-1.30 EOSINOPHILS ABSOLUTE COUNT (BEAKER) (test code = 416) 0.01 K/ L 0.00-0.50 BASOPHILS ABSOLUTE COUNT (BEAKER) (test code = 417) 0.01 K/ L 0. 00-0.20 IMMATURE GRANULOCYTES-RELATIVE PERCENT (BEAKER) (test code = 2801) 0 % 0-0 POCT-GLUCOSE [id number] 08:44:00* Test Item Value Reference Range Interpretation Comments POC-GLUCOSE METER (BEAKER) (test code = 1538) 110 mg/dL 70-110 : TESTED AT [address], [address]: Chainer/Molding Machine Operator ID = [id number] for CORINA NICOLE HEMOGLOBIN AND [id number] 05:58:00* Test Item Value Reference Range Interpretation Comments HEMOGLOBIN (BEAKER) (test code = 410) 8.2 GM/DL 13.7-17.5 L HEMATOCRIT (BEAKER) (test code = 411) 25.2 % 40.1-51.0 L POCT-GLUCOSE [id number] 00:23:00* Test Item Value Reference Range Interpretation Comments POC-GLUCOSE METER (BEAKER) (test code = 1538) 168 mg/dL 70-110 H : TESTED AT [address], [address]: Chainer/Molding Machine Operator ID = [id number] for OSKAR, ESAU POCT-GLUCOSE [id number] 20:14:00* Test Item Value Reference Range Interpretation Comments POC-GLUCOSE METER (BEAKER) (test code = 1538) 180 mg/dL 70-110 H : TESTED AT [address], [address]: Chainer/Molding Machine Operator ID = [id number] for OSKAR, ESAU POCT-GLUCOSE [id number] 16:45:00* Test Item Value Reference Range Interpretation Comments POC-GLUCOSE METER (BEAKER) (test code = 1538) 264 mg/dL 70-110 H : TESTED AT [address], [address]: Chainer/Molding Machine Operator ID = [id number] for JOANA CLEVELAND POCT-GLUCOSE [id number] 14:03:00* Test Item Value Reference Range Interpretation Comments POC-GLUCOSE METER (BEAKER) (test code = 1538) 196 mg/dL 70-110 H : TESTED AT [place] [id number] [facility], [address]: Chainer/Molding Machine Operator ID = [id number] for GIOVANI RIOS HEMODIALYSIS [id number] 12:14:00Daisy Arango RN 02/08/2019 12:17 PMLab Results Component Value Date HEPBSAG Nonreactive 02/03/2019 ]Lab Results Component Value Date GLUCOSE 109 (H) [...] stable and did not have any complaints. [place] 14mins before end of treatment that patient is for blood transfusion but floor nurse who acknowledged the order did not notify dialysis nurse, to be given in the floor. Patient stable. Endorsed accordingly. [facility] HospitalBLOOD [id number] 10:00:00* Test Item Value Reference Range Interpretation Comments CULTURE (BEAKER) (test code = 1095) No growth in 5 days POCT-GLUCOSE [id number] 08:20:00* Test Item Value Reference Range Interpretation Comments POC-GLUCOSE METER (BEAKER) (test code = 1538) 92 mg/dL 70-110 : TESTED AT [facility] [address] [facility], [address]: Chainer/Molding Machine Operator ID = [id number] for Daisy Arango BASIC METABOLIC [id number] 05:37:00* Test Item Value Reference Range Interpretation Comments SODIUM (BEAKER) (test code = 381) 135 meq/L 136-145 L POTASSIUM (BEAKER) (test code = 379) 4.4 meq/L 3.5-5.1 CHLORIDE (BEAKER) (test code = 382) 99 meq/L 98-107 CO2 (BEAKER) (test code = 355) 29 meq/L 22-29 BLOOD UREA NITROGEN (BEAKER) (test code = 354) 49 mg/dL 7-21 H CREATININE (BEAKER) (test code = 358) 8.20 mg/dL 0.57-1.25 H GLUCOSE RANDOM (BEAKER) (test code = 652) 109 mg/dL 70-105 H CALCIUM (BEAKER) (test code = 697) 9.3 mg/dL 8.4-10.2 EGFR (BEAKER) (test code = 1092) 7 mL/min/1.73 sq m ESTIMATED GFR IS NOT ACCURATE CREATININE CLEARANCE IN PREDICTING GLOMERULAR FILTRATION RATE. ESTIMATED GFR IS NOT APPLICABLE FOR DIALYSIS PATIENTS. [id number] 05:33:00* Test Item Value Reference Range Interpretation Comments PHOSPHORUS (BEAKER) (test code = 604) 2.9 mg/dL 2.3-4.7 [id number] 05:33:00* Test Item Value Reference Range Interpretation Comments MAGNESIUM (BEAKER) (test code = 627) 2.2 mg/dL 1.6-2.6 CBC W/PLT COUNT & AUTO [id number] 05:25:00* Test Item Value Reference Range Interpretation Comments WHITE BLOOD CELL COUNT (BEAKER) (test code = 775) 2.8 K/ L 3.5- 10.5 L RED BLOOD CELL COUNT (BEAKER) (test code = 761) 2.36 M/ L 4.63-6 .08 L HEMOGLOBIN (BEAKER) (test code = 410) 7.1 GM/DL 13.7-17.5 L HEMATOCRIT (BEAKER) (test code = 411) 22.1 % 40.1-51.0 L MEAN CORPUSCULAR VOLUME (BEAKER) (test code = 753) 93.6 fL 79. 0-92.2 H MEAN CORPUSCULAR HEMOGLOBIN (BEAKER) (test code = 751) 30.1 pg 25.7-32.2 MEAN CORPUSCULAR HEMOGLOBIN CONC (BEAKER) (test code = 752) 32.1 GM/DL 32.3-36.5 L RED CELL DISTRIBUTION WIDTH (BEAKER) (test code = 412) 17.6 % 11.6-14.4 H PLATELET COUNT (BEAKER) (test code = 756) 83 K/CU MM 150-450 L MEAN PLATELET VOLUME (BEAKER) (test code = 754) 9.8 fL 9.4-12 .4 NUCLEATED RED BLOOD CELLS (BEAKER) (test code = 413) 0 /100 WBC 0 -0 NEUTROPHILS RELATIVE PERCENT (BEAKER) (test code = 429) 74 % LYMPHOCYTES RELATIVE PERCENT (BEAKER) (test code = 430) 15 % MONOCYTES RELATIVE PERCENT (BEAKER) (test code = 431) 6 % EOSINOPHILS RELATIVE PERCENT (BEAKER) (test code = 432) 5 % BASOPHILS RELATIVE PERCENT (BEAKER) (test code = 437) 0 % NEUTROPHILS ABSOLUTE COUNT (BEAKER) (test code = 670) 2.08 K/ L 1.78-5.38 LYMPHOCYTES ABSOLUTE COUNT (BEAKER) (test code = 414) 0.43 K/ L 1.32-3.57 L MONOCYTES ABSOLUTE COUNT (BEAKER) (test code = 415) 0.16 K/ L 0. 30-0.82 L EOSINOPHILS ABSOLUTE COUNT (BEAKER) (test code = 416) 0.13 K/ L 0.04-0.54 BASOPHILS ABSOLUTE COUNT (BEAKER) (test code = 417) 0.01 K/ L 0. 01-0.08 IMMATURE GRANULOCYTES-RELATIVE PERCENT (BEAKER) (test code = 2801) 0 % 0-1 POCT-GLUCOSE [id number] 00:19:00* Test Item Value Reference Range Interpretation Comments POC-GLUCOSE METER (BEAKER) (test code = 1538) 160 mg/dL 70-110 H : TESTED AT [place] [id number] [facility], [address]: Chainer/Molding Machine Operator ID = [id number] for ESAU SCHMITT POCT-GLUCOSE [id number] 21:42:00* Test Item Value Reference Range Interpretation Comments POC-GLUCOSE METER (BEAKER) (test code = 1538) 234 mg/dL 70-110 H : TESTED AT [facility] [address] [facility], [address]: Chainer/Molding Machine Operator ID = [id number] for Dev Sana POCT-GLUCOSE [id number] 20:11:00* Test Item Value Reference Range Interpretation Comments POC-GLUCOSE METER (BEAKER) (test code = 1538) 219 mg/dL 70-110 H : TESTED AT [facility] [address] [facility], [address]: Chainer/Molding Machine Operator ID = [id number] for Sana Méndez POCT-GLUCOSE [id number] 13:12:00* Test Item Value Reference Range Interpretation Comments POC-GLUCOSE METER (BEAKER) (test code = 1538) 174 mg/dL 70-110 H : Notified RN/MD: TESTED AT [address], [address]: Chainer/Molding Machine Operator ID = [id number] for CAIT BERRY POCT-GLUCOSE [id number] 08:28:00* Test Item Value Reference Range Interpretation Comments POC-GLUCOSE METER (BEAKER) (test code = 1538) 150 mg/dL 70-110 H : TESTED AT [facility] [address] [facility], [address]: Chainer/Molding Machine Operator ID = [id number] for Ryder Myers BASIC METABOLIC [id number] 07:21:00* Test Item Value Reference Range Interpretation Comments SODIUM (BEAKER) (test code = 381) 138 meq/L 136-145 POTASSIUM (BEAKER) (test code = 379) 4.1 meq/L 3.5-5.1 CHLORIDE (BEAKER) (test code = 382) 102 meq/L 98-107 CO2 (BEAKER) (test code = 355) 29 meq/L 22-29 BLOOD UREA NITROGEN (BEAKER) (test code = 354) 37 mg/dL 7-21 H CREATININE (BEAKER) (test code = 358) 6.32 mg/dL 0.57-1.25 H GLUCOSE RANDOM (BEAKER) (test code = 652) 159 mg/dL 70-105 H CALCIUM (BEAKER) (test code = 697) 9.4 mg/dL 8.4-10.2 EGFR (BEAKER) (test code = 1092) 9 mL/min/1.73 sq m ESTIMATED GFR IS NOT ACCURATE CREATININE CLEARANCE IN PREDICTING GLOMERULAR FILTRATION RATE. ESTIMATED GFR IS NOT APPLICABLE FOR DIALYSIS PATIENTS. [id number] 07:13:00* Test Item Value Reference Range Interpretation Comments PHOSPHORUS (BEAKER) (test code = 604) 2.1 mg/dL 2.3-4.7 L [id number] 07:13:00* Test Item Value Reference Range Interpretation Comments MAGNESIUM (BEAKER) (test code = 627) 2.1 mg/dL 1.6-2.6 CBC W/PLT COUNT & AUTO [id number] 07:01:00* Test Item Value Reference Range Interpretation Comments WHITE BLOOD CELL COUNT (BEAKER) (test code = 775) 3.1 K/ L 3.5- 10.5 L RED BLOOD CELL COUNT (BEAKER) (test code = 761) 2.29 M/ L 4.63-6 .08 L HEMOGLOBIN (BEAKER) (test code = 410) 6.9 GM/DL 13.7-17.5 L HEMATOCRIT (BEAKER) (test code = 411) 21.3 % 40.1-51.0 L MEAN CORPUSCULAR VOLUME (BEAKER) (test code = 753) 93.0 fL 79. 0-92.2 H MEAN CORPUSCULAR HEMOGLOBIN (BEAKER) (test code = 751) 30.1 pg 25.7-32.2 MEAN CORPUSCULAR HEMOGLOBIN CONC (BEAKER) (test code = 752) 32.4 GM/DL 32.3-36.5 RED CELL DISTRIBUTION WIDTH (BEAKER) (test code = 412) 17.4 % 11.6-14.4 H PLATELET COUNT (BEAKER) (test code = 756) 92 K/CU MM 150-450 L MEAN PLATELET VOLUME (BEAKER) (test code = 754) 10.4 fL 9.4-12 .4 NUCLEATED RED BLOOD CELLS (BEAKER) (test code = 413) 0 /100 WBC 0 -0 NEUTROPHILS RELATIVE PERCENT (BEAKER) (test code = 429) 73 % LYMPHOCYTES RELATIVE PERCENT (BEAKER) (test code = 430) 15 % MONOCYTES RELATIVE PERCENT (BEAKER) (test code = 431) 6 % EOSINOPHILS RELATIVE PERCENT (BEAKER) (test code = 432) 5 % BASOPHILS RELATIVE PERCENT (BEAKER) (test code = 437) 0 % NEUTROPHILS ABSOLUTE COUNT (BEAKER) (test code = 670) 2.23 K/ L 1.78-5.38 LYMPHOCYTES ABSOLUTE COUNT (BEAKER) (test code = 414) 0.47 K/ L 1.32-3.57 L MONOCYTES ABSOLUTE COUNT (BEAKER) (test code = 415) 0.18 K/ L 0. 30-0.82 L EOSINOPHILS ABSOLUTE COUNT (BEAKER) (test code = 416) 0.14 K/ L 0.04-0.54 BASOPHILS ABSOLUTE COUNT (BEAKER) (test code = 417) 0.01 K/ L 0. 01-0.08 IMMATURE GRANULOCYTES-RELATIVE PERCENT (BEAKER) (test code = 2801) 1 % 0-1 POCT-GLUCOSE [id number] 22:31:00* Test Item Value Reference Range Interpretation Comments POC-GLUCOSE METER (BEAKER) (test code = 1538) 233 mg/dL 70-110 H : TESTED AT [facility] [address] [facility], [address]: Chainer/Molding Machine Operator ID = [id number] for AdamaBetyel POCT-GLUCOSE [id number] 20:29:00* Test Item Value Reference Range Interpretation Comments POC-GLUCOSE METER (BEAKER) (test code = 1538) 195 mg/dL 70-110 H : TESTED AT [address], [address]: Chainer/Molding Machine Operator ID = [id number] for JOEL TAYLRO HEMODIALYSIS [id number] 18:10:00Richie Damico RN 02/06/2019 6:35 PMHD x 4 hrs. UF net 3.5 L. Treatment tolerated well. Pt awake and alert, not in [...] Temp: 97.6 F (36.4 C) SpO2: 98% [facility] [id number] 17:18:00* Test Item Value Reference Range Interpretation Comments POC-GLUCOSE METER (BEAKER) (test code = 1538) 160 mg/dL 70-110 H : TESTED AT [facility] [address] [facility], [address]: Chainer/Molding Machine Operator ID = [id number] for JOSE PADRON POCT-GLUCOSE [id number] 14:53:00* Test Item Value Reference Range Interpretation Comments POC-GLUCOSE METER (BEAKER) (test code = 1538) 203 mg/dL 70-110 H : TESTED AT [facility] [address] [facility], [address]: Chainer/Molding Machine Operator ID = [id number] for NICOLE PADRONELLA POCT-GLUCOSE [id number] 08:38:00* Test Item Value Reference Range Interpretation Comments POC-GLUCOSE METER (BEAKER) (test code = 1538) 195 mg/dL 70-110 H : TESTED AT [place] [id number] [facility], [address]: Chainer/Molding Machine Operator ID = [id number] for MICHELLE EARNEST BASIC METABOLIC [id number] 05:56:00* Test Item Value Reference Range Interpretation Comments SODIUM (BEAKER) (test code = 381) 132 meq/L 136-145 L POTASSIUM (BEAKER) (test code = 379) 4.4 meq/L 3.5-5.1 CHLORIDE (BEAKER) (test code = 382) 94 meq/L 98-107 L CO2 (BEAKER) (test code = 355) 29 meq/L 22-29 BLOOD UREA NITROGEN (BEAKER) (test code = 354) 65 mg/dL 7-21 H CREATININE (BEAKER) (test code = 358) 9.73 mg/dL 0.57-1.25 H GLUCOSE RANDOM (BEAKER) (test code = 652) 198 mg/dL 70-105 H CALCIUM (BEAKER) (test code = 697) 9.4 mg/dL 8.4-10.2 EGFR (BEAKER) (test code = 1092) 6 mL/min/1.73 sq m ESTIMATED GFR IS NOT ACCURATE CREATININE CLEARANCE IN PREDICTING GLOMERULAR FILTRATION RATE. ESTIMATED GFR IS NOT APPLICABLE FOR DIALYSIS PATIENTS. [id number] 05:46:00* Test Item Value Reference Range Interpretation Comments PHOSPHORUS (BEAKER) (test code = 604) 2.3 mg/dL 2.3-4.7 [id number] 05:46:00* Test Item Value Reference Range Interpretation Comments MAGNESIUM (BEAKER) (test code = 627) 2.2 mg/dL 1.6-2.6 CBC W/PLT COUNT & AUTO [id number] 05:19:00* Test Item Value Reference Range Interpretation Comments WHITE BLOOD CELL COUNT (BEAKER) (test code = 775) 3.6 K/ L 3.5- 10.5 RED BLOOD CELL COUNT (BEAKER) (test code = 761) 2.38 M/ L 4.63-6 .08 L HEMOGLOBIN (BEAKER) (test code = 410) 7.2 GM/DL 13.7-17.5 L HEMATOCRIT (BEAKER) (test code = 411) 21.8 % 40.1-51.0 L MEAN CORPUSCULAR VOLUME (BEAKER) (test code = 753) 91.6 fL 79. 0-92.2 MEAN CORPUSCULAR HEMOGLOBIN (BEAKER) (test code = 751) 30.3 pg 25.7-32.2 MEAN CORPUSCULAR HEMOGLOBIN CONC (BEAKER) (test code = 752) 33.0 GM/DL 32.3-36.5 RED CELL DISTRIBUTION WIDTH (BEAKER) (test code = 412) 17.9 % 11.6-14.4 H PLATELET COUNT (BEAKER) (test code = 756) 84 K/CU MM 150-450 L MEAN PLATELET VOLUME (BEAKER) (test code = 754) 10.5 fL 9.4-12 .4 NUCLEATED RED BLOOD CELLS (BEAKER) (test code = 413) 0 /100 WBC 0 -0 NEUTROPHILS RELATIVE PERCENT (BEAKER) (test code = 429) 73 % LYMPHOCYTES RELATIVE PERCENT (BEAKER) (test code = 430) 17 % MONOCYTES RELATIVE PERCENT (BEAKER) (test code = 431) 5 % EOSINOPHILS RELATIVE PERCENT (BEAKER) (test code = 432) 5 % BASOPHILS RELATIVE PERCENT (BEAKER) (test code = 437) 0 % NEUTROPHILS ABSOLUTE COUNT (BEAKER) (test code = 670) 2.65 K/ L 1.78-5.38 LYMPHOCYTES ABSOLUTE COUNT (BEAKER) (test code = 414) 0.60 K/ L 1.32-3.57 L MONOCYTES ABSOLUTE COUNT (BEAKER) (test code = 415) 0.19 K/ L 0. 30-0.82 L EOSINOPHILS ABSOLUTE COUNT (BEAKER) (test code = 416) 0.18 K/ L 0.04-0.54 BASOPHILS ABSOLUTE COUNT (BEAKER) (test code = 417) 0.01 K/ L 0. 01-0.08 IMMATURE GRANULOCYTES-RELATIVE PERCENT (BEAKER) (test code = 2801) 0 % 0-1 POCT-GLUCOSE [id number] 21:09:00* Test Item Value Reference Range Interpretation Comments POC-GLUCOSE METER (BEAKER) (test code = 1538) 173 mg/dL 70-110 H : TESTED AT [address], [address]: Chainer/Molding Machine Operator ID = [id number] for JULIANNA GUTHRIE POCT-GLUCOSE [id number] 16:01:00* Test Item Value Reference Range Interpretation Comments POC-GLUCOSE METER (BEAKER) (test code = 1538) 252 mg/dL 70-110 H : Notified RN/MD: TESTED AT [address], [address]: Chainer/Molding Machine Operator ID = [id number] for GABRIEL GIOVANI POCT-GLUCOSE [id number] 10:58:00* Test Item Value Reference Range Interpretation Comments POC-GLUCOSE METER (BEAKER) (test code = 1538) 159 mg/dL 70-110 H : TESTED AT [address], [address]: Chainer/Molding Machine Operator ID = [id number] for GABRIELGIOVANI BASIC METABOLIC [id number] 06:11:00* Test Item Value Reference Range Interpretation Comments SODIUM (BEAKER) (test code = 381) 134 meq/L 136-145 L POTASSIUM (BEAKER) (test code = 379) 3.9 meq/L 3.5-5.1 CHLORIDE (BEAKER) (test code = 382) 96 meq/L 98-107 L CO2 (BEAKER) (test code = 355) 29 meq/L 22-29 BLOOD UREA NITROGEN (BEAKER) (test code = 354) 49 mg/dL 7-21 H CREATININE (BEAKER) (test code = 358) 7.95 mg/dL 0.57-1.25 H GLUCOSE RANDOM (BEAKER) (test code = 652) 178 mg/dL 70-105 H CALCIUM (BEAKER) (test code = 697) 9.7 mg/dL 8.4-10.2 EGFR (BEAKER) (test code = 1092) 7 mL/min/1.73 sq m ESTIMATED GFR IS NOT ACCURATE CREATININE CLEARANCE IN PREDICTING GLOMERULAR FILTRATION RATE. ESTIMATED GFR IS NOT APPLICABLE FOR DIALYSIS PATIENTS. [id number] 05:41:00* Test Item Value Reference Range Interpretation Comments PHOSPHORUS (BEAKER) (test code = 604) 2.5 mg/dL 2.3-4.7 [id number] 05:41:00* Test Item Value Reference Range Interpretation Comments MAGNESIUM (BEAKER) (test code = 627) 2.2 mg/dL 1.6-2.6 CBC W/PLT COUNT & AUTO [id number] 05:15:00* Test Item Value Reference Range Interpretation Comments WHITE BLOOD CELL COUNT (BEAKER) (test code = 775) 2.7 K/ L 3.5- 10.5 L RED BLOOD CELL COUNT (BEAKER) (test code = 761) 2.19 M/ L 4.63-6 .08 L HEMOGLOBIN (BEAKER) (test code = 410) 6.8 GM/DL 13.7-17.5 L HEMATOCRIT (BEAKER) (test code = 411) 20.1 % 40.1-51.0 L MEAN CORPUSCULAR VOLUME (BEAKER) (test code = 753) 91.8 fL 79. 0-92.2 MEAN CORPUSCULAR HEMOGLOBIN (BEAKER) (test code = 751) 31.1 pg 25.7-32.2 MEAN CORPUSCULAR HEMOGLOBIN CONC (BEAKER) (test code = 752) 33.8 GM/DL 32.3-36.5 RED CELL DISTRIBUTION WIDTH (BEAKER) (test code = 412) 18.5 % 11.6-14.4 H PLATELET COUNT (BEAKER) (test code = 756) 79 K/CU MM 150-450 L MEAN PLATELET VOLUME (BEAKER) (test code = 754) 10.0 fL 9.4-12 .4 NUCLEATED RED BLOOD CELLS (BEAKER) (test code = 413) 0 /100 WBC 0 -0 NEUTROPHILS RELATIVE PERCENT (BEAKER) (test code = 429) 65 % LYMPHOCYTES RELATIVE PERCENT (BEAKER) (test code = 430) 23 % MONOCYTES RELATIVE PERCENT (BEAKER) (test code = 431) 6 % EOSINOPHILS RELATIVE PERCENT (BEAKER) (test code = 432) 5 % BASOPHILS RELATIVE PERCENT (BEAKER) (test code = 437) 0 % NEUTROPHILS ABSOLUTE COUNT (BEAKER) (test code = 670) 1.74 K/ L 1.78-5.38 L LYMPHOCYTES ABSOLUTE COUNT (BEAKER) (test code = 414) 0.62 K/ L 1.32-3.57 L MONOCYTES ABSOLUTE COUNT (BEAKER) (test code = 415) 0.17 K/ L 0. 30-0.82 L EOSINOPHILS ABSOLUTE COUNT (BEAKER) (test code = 416) 0.12 K/ L 0.04-0.54 BASOPHILS ABSOLUTE COUNT (BEAKER) (test code = 417) 0.01 K/ L 0. 01-0.08 IMMATURE GRANULOCYTES-RELATIVE PERCENT (BEAKER) (test code = 2801) 0 % 0-1 POCT-GLUCOSE [id number] 19:47:00* Test Item Value Reference Range Interpretation Comments POC-GLUCOSE METER (BEAKER) (test code = 1538) 211 mg/dL 70-110 H : TESTED AT [address], [address]: Chainer/Molding Machine Operator ID = [id number] for Simona Hurtado POCT-GLUCOSE [id number] 16:23:00* Test Item Value Reference Range Interpretation Comments POC-GLUCOSE METER (BEAKER) (test code = 1538) 187 mg/dL 70-110 H : Notified RN/MD: TESTED AT [address], [address]: Chainer/Molding Machine Operator ID = [id number] for GIOVANI RIOS POCT-GLUCOSE [id number] 10:06:00* Test Item Value Reference Range Interpretation Comments POC-GLUCOSE METER (BEAKER) (test code = 1538) 157 mg/dL 70-110 H : TESTED AT [address], [address]: Chainer/Molding Machine Operator ID = [id number] for GIOVANI RIOS BASIC METABOLIC [id number] 08:46:00* Test Item Value Reference Range Interpretation Comments SODIUM (BEAKER) (test code = 381) 134 meq/L 136-145 L POTASSIUM (BEAKER) (test code = 379) 3.9 meq/L 3.5-5.1 CHLORIDE (BEAKER) (test code = 382) 99 meq/L 98-107 CO2 (BEAKER) (test code = 355) 27 meq/L 22-29 BLOOD UREA NITROGEN (BEAKER) (test code = 354) 35 mg/dL 7-21 H CREATININE (BEAKER) (test code = 358) 6.18 mg/dL 0.57-1.25 H GLUCOSE RANDOM (BEAKER) (test code = 652) 169 mg/dL 70-105 H CALCIUM (BEAKER) (test code = 697) 9.1 mg/dL 8.4-10.2 EGFR (BEAKER) (test code = 1092) 9 mL/min/1.73 sq m ESTIMATED GFR IS NOT ACCURATE CREATININE CLEARANCE IN PREDICTING GLOMERULAR FILTRATION RATE. ESTIMATED GFR IS NOT APPLICABLE FOR DIALYSIS PATIENTS. [id number] 08:32:00* Test Item Value Reference Range Interpretation Comments PHOSPHORUS (BEAKER) (test code = 604) 2.5 mg/dL 2.3-4.7 [id number] 08:32:00* Test Item Value Reference Range Interpretation Comments MAGNESIUM (BEAKER) (test code = 627) 2.1 mg/dL 1.6-2.6 CBC W/PLT COUNT & AUTO [id number] 06:54:00* Test Item Value Reference Range Interpretation Comments WHITE BLOOD CELL COUNT (BEAKER) (test code = 775) 2.6 K/ L 3.5- 10.5 L RED BLOOD CELL COUNT (BEAKER) (test code = 761) 1.95 M/ L 4.63-6 .08 L HEMOGLOBIN (BEAKER) (test code = 410) 5.9 GM/DL 13.7-17.5 LL HEMATOCRIT (BEAKER) (test code = 411) 19.7 % 40.1-51.0 L MEAN CORPUSCULAR VOLUME (BEAKER) (test code = 753) 101.0 fL 79. 0-92.2 H Discordant result compares with previous; clinical correlation requires. MEAN CORPUSCULAR HEMOGLOBIN (BEAKER) (test code = 751) 30.3 pg 25.7-32.2 MEAN CORPUSCULAR HEMOGLOBIN CONC (BEAKER) (test code = 752) 29.9 GM/DL 32.3-36.5 L RED CELL DISTRIBUTION WIDTH (BEAKER) (test code = 412) 18.7 % 11.6-14.4 H PLATELET COUNT (BEAKER) (test code = 756) 68 K/CU MM 150-450 L MEAN PLATELET VOLUME (BEAKER) (test code = 754) 11.3 fL 9.4-12 .4 NUCLEATED RED BLOOD CELLS (BEAKER) (test code = 413) 0 /100 WBC 0 -0 NEUTROPHILS RELATIVE PERCENT (BEAKER) (test code = 429) 66 % LYMPHOCYTES RELATIVE PERCENT (BEAKER) (test code = 430) 24 % MONOCYTES RELATIVE PERCENT (BEAKER) (test code = 431) 7 % EOSINOPHILS RELATIVE PERCENT (BEAKER) (test code = 432) 2 % BASOPHILS RELATIVE PERCENT (BEAKER) (test code = 437) 0 % NEUTROPHILS ABSOLUTE COUNT (BEAKER) (test code = 670) 1.71 K/ L 1.78-5.38 L LYMPHOCYTES ABSOLUTE COUNT (BEAKER) (test code = 414) 0.62 K/ L 1.32-3.57 L MONOCYTES ABSOLUTE COUNT (BEAKER) (test code = 415) 0.18 K/ L 0. 30-0.82 L EOSINOPHILS ABSOLUTE COUNT (BEAKER) (test code = 416) 0.05 K/ L 0.04-0.54 BASOPHILS ABSOLUTE COUNT (BEAKER) (test code = 417) 0.01 K/ L 0. 01-0.08 IMMATURE GRANULOCYTES-RELATIVE PERCENT (BEAKER) (test code = 2801) 0 % 0-1 Short specimen, this index could be affectedNo clotsAntibody identification 2019-02-03 16:05:00* Test Item Value Reference Range Interpretation Comments ANTIBODY ID (BEAKER) (test code = 2253) Anti-EUNID IgG Antibody Consult (test code = 2479) SIGNED OUT Anti E causes RBC injury, transfuse E negative RBCs.An IgG antibody of undetermined specificity is detected, transfuse crossmatch compatible RBCs.Electronic Signature: Karla Hirsch M.D. [facility] [id number] 15:31:00* Test Item Value Reference Range Interpretation Comments POC-GLUCOSE METER (BEAKER) (test code = 1538) 150 mg/dL 70-110 H : Notified RN/MD: TESTED AT [place] [id number] [facility], [address]: Chainer/Molding Machine Operator ID = [id number] for GIOVANI RIOS Lactic acid, [id number] 09:27:00* Test Item Value Reference Range Interpretation Comments Lactate, Venous (test code = 2872) 0.2 mmol/L 0.5-2.2 L Lab Interpretation (test code = 47768-0) [facility]normal [facility], [id number] 09:27:00* Test Item Value Reference Range Interpretation Comments LACTATE BLOOD VENOUS (2) (BEAKER) (test code = 2872) 0.2 mmol/L 0 .5-2.2 L POCT-GLUCOSE [id number] 08:47:00* Test Item Value Reference Range Interpretation Comments POC-GLUCOSE METER (BEAKER) (test code = 1538) 210 mg/dL 70-110 H : TESTED AT [address], [address]: Chainer/Molding Machine Operator ID = [id number] for JOANA SILVA POCT-GLUCOSE [id number] 07:24:00* Test Item Value Reference Range Interpretation Comments POC-GLUCOSE METER (BEAKER) (test code = 1538) 198 mg/dL 70-110 H : TESTED AT [address], [address]: Chainer/Molding Machine Operator ID = [id number] for DOMI HILL BASIC METABOLIC [id number] 06:13:00* Test Item Value Reference Range Interpretation Comments SODIUM (BEAKER) (test code = 381) 132 meq/L 136-145 L POTASSIUM (BEAKER) (test code = 379) 4.1 meq/L 3.5-5.1 CHLORIDE (BEAKER) (test code = 382) 94 meq/L 98-107 L CO2 (BEAKER) (test code = 355) 26 meq/L 22-29 BLOOD UREA NITROGEN (BEAKER) (test code = 354) 55 mg/dL 7-21 H CREATININE (BEAKER) (test code = 358) 8.41 mg/dL 0.57-1.25 H GLUCOSE RANDOM (BEAKER) (test code = 652) 204 mg/dL 70-105 H CALCIUM (BEAKER) (test code = 697) 9.3 mg/dL 8.4-10.2 EGFR (BEAKER) (test code = 1092) 7 mL/min/1.73 sq m ESTIMATED GFR IS NOT ACCURATE CREATININE CLEARANCE IN PREDICTING GLOMERULAR FILTRATION RATE. ESTIMATED GFR IS NOT APPLICABLE FOR DIALYSIS PATIENTS. [id number] 06:09:00* Test Item Value Reference Range Interpretation Comments MAGNESIUM (BEAKER) (test code = 627) 2.2 mg/dL 1.6-2.6 [id number] 06:08:00* Test Item Value Reference Range Interpretation Comments PHOSPHORUS (BEAKER) (test code = 604) 2.6 mg/dL 2.3-4.7 CBC W/PLT COUNT & AUTO [id number] 05:55:00* Test Item Value Reference Range Interpretation Comments WHITE BLOOD CELL COUNT (BEAKER) (test code = 775) 3.1 K/ L 3.5- 10.5 L RED BLOOD CELL COUNT (BEAKER) (test code = 761) 1.92 M/ L 4.63-6 .08 L HEMOGLOBIN (BEAKER) (test code = 410) 6.0 GM/DL 13.7-17.5 LL HEMATOCRIT (BEAKER) (test code = 411) 17.9 % 40.1-51.0 L MEAN CORPUSCULAR VOLUME (BEAKER) (test code = 753) 93.2 fL 79. 0-92.2 H MEAN CORPUSCULAR HEMOGLOBIN (BEAKER) (test code = 751) 31.3 pg 25.7-32.2 MEAN CORPUSCULAR HEMOGLOBIN CONC (BEAKER) (test code = 752) 33.5 GM/DL 32.3-36.5 RED CELL DISTRIBUTION WIDTH (BEAKER) (test code = 412) 19.3 % 11.6-14.4 H PLATELET COUNT (BEAKER) (test code = 756) 61 K/CU MM 150-450 L MEAN PLATELET VOLUME (BEAKER) (test code = 754) 11.0 fL 9.4-12 .4 NUCLEATED RED BLOOD CELLS (BEAKER) (test code = 413) 0 /100 WBC 0 -0 NEUTROPHILS RELATIVE PERCENT (BEAKER) (test code = 429) 68 % LYMPHOCYTES RELATIVE PERCENT (BEAKER) (test code = 430) 22 % MONOCYTES RELATIVE PERCENT (BEAKER) (test code = 431) 8 % EOSINOPHILS RELATIVE PERCENT (BEAKER) (test code = 432) 2 % BASOPHILS RELATIVE PERCENT (BEAKER) (test code = 437) 0 % NEUTROPHILS ABSOLUTE COUNT (BEAKER) (test code = 670) 2.11 K/ L 1.78-5.38 LYMPHOCYTES ABSOLUTE COUNT (BEAKER) (test code = 414) 0.69 K/ L 1.32-3.57 L MONOCYTES ABSOLUTE COUNT (BEAKER) (test code = 415) 0.24 K/ L 0. 30-0.82 L EOSINOPHILS ABSOLUTE COUNT (BEAKER) (test code = 416) 0.06 K/ L 0.04-0.54 BASOPHILS ABSOLUTE COUNT (BEAKER) (test code = 417) 0.01 K/ L 0. 01-0.08 IMMATURE GRANULOCYTES-RELATIVE PERCENT (BEAKER) (test code = 2801) 0 % 0-1 Hepatitis C [id number] 02:46:00* Test Item Value Reference Range Interpretation Comments Hepatitis C Ab (test code = 56225-1) Nonreactive Nonreactive Lab Interpretation (test code = 61270-2) Normal [facility] [id number] 02:46:00* Test Item Value Reference Range Interpretation Comments Hep B Core Total Ab (test code = 22927-3) Nonreactive Nonreactive Hep B S Ab (test code = 65633-4) 16.1 <8.0 mIU/mL H HBsAg Screen (test code = 5195-3) Nonreactive Nonreactive Lab Interpretation (test code = 38668-6) [facility]normal [facility] Antigen with HIV-1/2 [id number] 02:46:00* Test Item Value Reference Range Interpretation Comments HIV-1 Antigen with HIV 1&2 Antibody (test code = 41198-0) No nreactive Nonreactive Lab Interpretation (test code = 70752-3) Normal [facility]AT[facility] [id number] 02:46:00* Test Item Value Reference Range Interpretation Comments HEPATITIS C ANTIBODY (BEAKER) (test code = 367) Nonreactive Nonrea ctive HEPATITIS B [id number] 02:46:00* Test Item Value Reference Range Interpretation Comments HEPATITIS B CORE TOTAL ANTIBODY (BEAKER) (test code = 497) N onreactive Nonreactive HEPATITIS B SURFACE ANTIBODY (BEAKER) (test code = 647) 16.1 mIU/mL <8.0 H HEPATITIS B SURFACE ANTIGEN (2) (BEAKER) (test code = 2585) Nonreactive Nonreactive HIV-1 ANTIGEN WITH HIV-1/2 [id number] 02:46:00* Test Item Value Reference Range Interpretation Comments HIV-1 ANTIGEN WITH HIV 1\\T\\2 ANTIBODY (2) (BETAMRA) (te st code = 2586) Nonreactive Nonreactive [facility] (KAYLENE)/Direct [id number] 00:22:00* Test Item Value Reference Range Interpretation Comments [facility]-IGG (test code = 1006-6) POSITIVE Microscopic positive by Jojo Fonseca [facility]-C3B, C3D (test code = 1003-3) NEGATVIE by Jojo Fonseca [facility] [id number] 21:26:00* Test Item Value Reference Range Interpretation Comments POC-GLUCOSE METER (CATRINA) (test code = 1538) 164 mg/dL 70-110 H : TESTED AT [facility] [address] [place], [address]: Chainer/Molding Machine Operator ID = [id number] for CASSIE HALE RAD, CHEST, 1 VIEW, NON [id number] 20:45:00Reason for exam:->ABNORMAL LABReason for exam:->SHORTNESS OF BREATHFINAL REPORT INDICATION: ABNORMAL LABSHORTNESS OF BREATH COMPARISON: Prior not currently available TECHNIQUE: Single frontal view of the chest. FINDINGS: Lungs and pleura: Mild bibasilar atelectasis. No consolidation or pleural effusion. Heart and mediastinum: Heart is mildly enlarged. Unremarkable mediastinal contours.Osseous structures: No acute abnormality.Other: None. IMPRESSION: Mild cardiomegaly. Otherwise, no acute intrathoracic abnormality. Signed: Yoni Jones MDReport Verified Date/Time: 02/02/2019 20:45:30 B-TYPE NATRIURETIC FACTOR (BNP)2019-02-02 20:25:00* Test Item Value Reference Range Interpretation Comments B-TYPE NATRIURETIC PEPTIDE (CATRINA) (test code = 700) 1530 pg/mL 0-100 H TROPONIN [id number] 20:25:00* Test Item Value Reference Range Interpretation Comments TROPONIN I (BEAKER) (test code = 397) 0.03 ng/mL 0.00-0.03 Troponin I (TnI) levels must be interpreted in the context of the presenting sym ptoms and the clinical findings. Elevated TnI levels indicate myocardial damage, but are not specific for ischemic heart disease. Elevated TnI levels are seen in patients with other cardiac conditions (including myocarditis and congestive h eart failure), and slight TnI elevations occur in patients with other conditions , including sepsis, renal failure, acidosis, acute neurological disease, and per sistent tachyarrhythmia.BASIC METABOLIC [id number] 20:23:00* Test Item Value Reference Range Interpretation Comments SODIUM (BEAKER) (test code = 381) 132 meq/L 136-145 L POTASSIUM (BEAKER) (test code = 379) 4.0 meq/L 3.5-5.1 Specimen slightly hemolyzed CHLORIDE (BEAKER) (test code = 382) 94 meq/L 98-107 L CO2 (BEAKER) (test code = 355) 26 meq/L 22-29 BLOOD UREA NITROGEN (BEAKER) (test code = 354) 48 mg/dL 7-21 H CREATININE (BEAKER) (test code = 358) 7.50 mg/dL 0.57-1.25 H Specimen slightly hemolyzed GLUCOSE RANDOM (BEAKER) (test code = 652) 162 mg/dL 70-105 H CALCIUM (BEAKER) (test code = 697) 9.4 mg/dL 8.4-10.2 EGFR (BEAKER) (test code = 1092) 8 mL/min/1.73 sq m ESTIMATED GFR IS NOT ACCURATE CREATININE CLEARANCE IN PREDICTING GLOMERULAR FILTRATION RATE. ESTIMATED GFR IS NOT APPLICABLE FOR DIALYSIS PATIENTS. [id number] 20:18:00* Test Item Value Reference Range Interpretation Comments MAGNESIUM (BEAKER) (test code = 627) 2.2 mg/dL 1.6-2.6 Specimen slightly hemolyzed [id number] 20:14:00* Test Item Value Reference Range Interpretation Comments PROTIME (BEAKER) (test code = 759) 13.8 seconds 11.9-14.2 INR (BEAKER) (test code = 370) 1.1 <=5.9 PARTIAL THROMBOPLASTIN TIME (BEAKER) (test code = 760) 39.3 seconds 22.5-36.0 H Effective 07/27/2018: PT Reference Range ChangeNew: 11.9-14.2 Previous: 11.7-14. 7RECOMMENDED COUMADIN/WARFARIN INR THERAPY RANGESSTANDARD DOSE: 2.0-3.0 Include s: PROPHYLAXIS for venous thrombosis, systemic embolization; TREATMENT for venou s thrombosis and/or pulmonary embolus.HIGH RISK: Target INR is 2.5-3.5 for patie nts wiht mechanical heart valves.CBC W/PLT COUNT & AUTO [id number] 20:10:00* Test Item Value Reference Range Interpretation Comments WHITE BLOOD CELL COUNT (BEAKER) (test code = 775) 2.8 K/ L 3.5- 10.5 L RED BLOOD CELL COUNT (BEAKER) (test code = 761) 1.90 M/ L 4.63-6 .08 L HEMOGLOBIN (BEAKER) (test code = 410) 5.9 GM/DL 13.7-17.5 LL HEMATOCRIT (BEAKER) (test code = 411) 17.7 % 40.1-51.0 L MEAN CORPUSCULAR VOLUME (BEAKER) (test code = 753) 93.2 fL 79. 0-92.2 H MEAN CORPUSCULAR HEMOGLOBIN (BEAKER) (test code = 751) 31.1 pg 25.7-32.2 MEAN CORPUSCULAR HEMOGLOBIN CONC (BEAKER) (test code = 752) 33.3 GM/DL 32.3-36.5 RED CELL DISTRIBUTION WIDTH (BEAKER) (test code = 412) 19.0 % 11.6-14.4 H PLATELET COUNT (BEAKER) (test code = 756) 65 K/CU MM 150-450 L MEAN PLATELET VOLUME (BEAKER) (test code = 754) 11.5 fL 9.4-12 .4 NUCLEATED RED BLOOD CELLS (BEAKER) (test code = 413) 0 /100 WBC 0 -0 NEUTROPHILS RELATIVE PERCENT (BEAKER) (test code = 429) 65 % LYMPHOCYTES RELATIVE PERCENT (BEAKER) (test code = 430) 23 % MONOCYTES RELATIVE PERCENT (BEAKER) (test code = 431) 8 % EOSINOPHILS RELATIVE PERCENT (BEAKER) (test code = 432) 3 % BASOPHILS RELATIVE PERCENT (BEAKER) (test code = 437) 0 % NEUTROPHILS ABSOLUTE COUNT (BEAKER) (test code = 670) 1.83 K/ L 1.78-5.38 LYMPHOCYTES ABSOLUTE COUNT (BEAKER) (test code = 414) 0.65 K/ L 1.32-3.57 L MONOCYTES ABSOLUTE COUNT (BEAKER) (test code = 415) 0.23 K/ L 0. 30-0.82 L EOSINOPHILS ABSOLUTE COUNT (BEAKER) (test code = 416) 0.09 K/ L 0.04-0.54 BASOPHILS ABSOLUTE COUNT (BEAKER) (test code = 417) 0.01 K/ L 0. 01-0.08 IMMATURE GRANULOCYTES-RELATIVE PERCENT (BEAKER) (test code = 2801) 0 % 0-1 TISSUE [id number] 10:03:00Surgical Pathology Report Case: [id number] Authorizing Provider: Kj Ramirez DPM Collected: 01/24/2019 0835 Ordering Location: [address] Received: 01/24/2019 0938 Service Pathologist: Fede Patrick MD Specimen: Heel, Left, soft tissue, left heel PART A SOFT TISSUE LEFT HEEL, DEBRIDEMENT:CONNECTIVE TISSUE WITH GANGRENOUS NECROSIS. Signing Pathologist Direct Phone Line: [phone] signed by Fede Patrick MD on 02/01/2019 at 10:03 [id number] wound of left heelLeft heel, soft tissue left heelSpecimen A is a baltazar-pink to mar-white tissue measuring 1 cm in greatest dimension. The specimen is submitted in toto in cassette A1. KM/bc PERFORMED.[facility], Department of Pathology, [address] [place] [address], FzdgdxEmanate [facility], Department of Pathology, [address] [place] [address], PiqdzgEmanate Health/[facility], Department of Pathology, [address] [place] [address], Iosjdakwu [id number] 18:14:00* Test Item Value Reference Range Interpretation Comments Result (test code = 6463-4) 4+ Same organism has been isolated from culture(s) of the same body site and collection date. Repeat identification performed only after consultation with the clinical microbiology laboratory. A Refer to previous culture of* - Finegoldia magna Lab Interpretation (test code = 90607-3) [facility]normal [facility] [id number] 18:14:00* Test Item Value Reference Range Interpretation Comments CULTURE (BEAKER) (test code = 1095) A 4+ Same organism has been isolated from culture(s) of the same body site and collection date. Repeat identification performed only after consultation with the clinical microbiology laboratory.Refer to previous culture of* - Finegoldia magna POCT-GLUCOSE [id number] 21:32:00* Test Item Value Reference Range Interpretation Comments POC-GLUCOSE METER (BEAKER) (test code = 1538) 151 mg/dL 70-110 H : TESTED AT [address], [address]: Chainer/Molding Machine Operator ID = [id number] for JOSE PADRON HEMODIALYSIS [id number] 20:35:21Lionel Leyva RN 01/25/2019 8:35 PMstarted HD procedure via left forearm avf with bfr of 350 as prescribed.Net uf 4000ccTolerated hd wellReport given to primary careRN. Lab Results Component [...] Results Component Value Date HEPBSAG Non[facility] 18:19:00* Test Item Value Reference Range Interpretation Comments POC-GLUCOSE METER (BEAKER) (test code = 1538) 105 mg/dL 70-110 : TESTED AT [address], [address]: Chainer/Molding Machine Operator ID = [id number] for Sarmad Arias POCT-GLUCOSE [id number] 15:13:00* Test Item Value Reference Range Interpretation Comments POC-GLUCOSE METER (BEAKER) (test code = 1538) 140 mg/dL 70-110 H : TESTED AT [address], [address]: Chainer/Molding Machine Operator ID = [id number] for ELSA MENDOZA POCT-GLUCOSE [id number] 15:05:00* Test Item Value Reference Range Interpretation Comments POC-GLUCOSE METER (BEAKER) (test code = 1538) 128 mg/dL 70-110 H : TESTED AT [address], [address]: Chainer/Molding Machine Operator ID = [id number] for Willard, Serkialem POCT-GLUCOSE [id number] 14:39:00* Test Item Value Reference Range Interpretation Comments POC-GLUCOSE METER (BEAKER) (test code = 1538) 108 mg/dL 70-110 : TESTED AT [address], [address]: Chainer/Molding Machine Operator ID = [id number] for CAAL, NOVA POCT-GLUCOSE [id number] 14:35:00* Test Item Value Reference Range Interpretation Comments POC-GLUCOSE METER (BEAKER) (test code = 1538) 114 mg/dL 70-110 H : TESTED AT [address], [address]: Chainer/Molding Machine Operator ID = [id number] for CAAL, NOVA BASIC METABOLIC [id number] 05:22:00* Test Item Value Reference Range Interpretation Comments SODIUM (BEAKER) (test code = 381) 139 meq/L 136-145 POTASSIUM (BEAKER) (test code = 379) 4.2 meq/L 3.5-5.1 CHLORIDE (BEAKER) (test code = 382) 102 meq/L 98-107 CO2 (BEAKER) (test code = 355) 26 meq/L 22-29 BLOOD UREA NITROGEN (BEAKER) (test code = 354) 22 mg/dL 7-21 H CREATININE (BEAKER) (test code = 358) 8.65 mg/dL 0.57-1.25 H GLUCOSE RANDOM (BEAKER) (test code = 652) 123 mg/dL 70-105 H CALCIUM (BEAKER) (test code = 697) 9.5 mg/dL 8.4-10.2 EGFR (BEAKER) (test code = 1092) 6 mL/min/1.73 sq m ESTIMATED GFR IS NOT ACCURATE CREATININE CLEARANCE IN PREDICTING GLOMERULAR FILTRATION RATE. ESTIMATED GFR IS NOT APPLICABLE FOR DIALYSIS PATIENTS. CBC W/PLT COUNT & AUTO [id number] 05:19:00* Test Item Value Reference Range Interpretation Comments WHITE BLOOD CELL COUNT (BEAKER) (test code = 775) 6.4 K/ L 3.5- 10.5 RED BLOOD CELL COUNT (BEAKER) (test code = 761) 2.59 M/ L 4.63-6 .08 L HEMOGLOBIN (BEAKER) (test code = 410) 8.0 GM/DL 13.7-17.5 L HEMATOCRIT (BEAKER) (test code = 411) 24.6 % 40.1-51.0 L MEAN CORPUSCULAR VOLUME (BEAKER) (test code = 753) 95.0 fL 79. 0-92.2 H MEAN CORPUSCULAR HEMOGLOBIN (BEAKER) (test code = 751) 30.9 pg 25.7-32.2 MEAN CORPUSCULAR HEMOGLOBIN CONC (BEAKER) (test code = 752) 32.5 GM/DL 32.3-36.5 RED CELL DISTRIBUTION WIDTH (BEAKER) (test code = 412) 16.4 % 11.6-14.4 H PLATELET COUNT (BEAKER) (test code = 756) 140 K/CU MM 150-450 L MEAN PLATELET VOLUME (BEAKER) (test code = 754) 9.1 fL 9.4-12 .4 L NUCLEATED RED BLOOD CELLS (BEAKER) (test code = 413) 0 /100 WBC 0 -0 NEUTROPHILS RELATIVE PERCENT (BEAKER) (test code = 429) 83 % LYMPHOCYTES RELATIVE PERCENT (BEAKER) (test code = 430) 10 % MONOCYTES RELATIVE PERCENT (BEAKER) (test code = 431) 4 % EOSINOPHILS RELATIVE PERCENT (BEAKER) (test code = 432) 3 % BASOPHILS RELATIVE PERCENT (BEAKER) (test code = 437) 0 % NEUTROPHILS ABSOLUTE COUNT (BEAKER) (test code = 670) 5.25 K/ L 1.78-5.38 LYMPHOCYTES ABSOLUTE COUNT (BEAKER) (test code = 414) 0.65 K/ L 1.32-3.57 L MONOCYTES ABSOLUTE COUNT (BEAKER) (test code = 415) 0.25 K/ L 0. 30-0.82 L EOSINOPHILS ABSOLUTE COUNT (BEAKER) (test code = 416) 0.16 K/ L 0.04-0.54 BASOPHILS ABSOLUTE COUNT (BEAKER) (test code = 417) 0.02 K/ L 0. 01-0.08 IMMATURE GRANULOCYTES-RELATIVE PERCENT (BEAKER) (test code = 2801) 1 % 0-1 RAD, FOOT, MIN 3 VIEWS, [id number] 12:56:00Reason for exam:->post op films FINAL REPORT TECHNIQUE: Three views of the left foot HIST ORY: post op films. COMPARISON: 01/18/2019. IMPRESSION:Postoperative changes at the heel.Otherwise, stable compared to the prior study. Signed: Jaimie Moreau MD Report Verified Date/Time: 01/24/2019 12:56:40 Reading Location: [facility] Radiolog y Reading Room Electronically signed by: JAIMIE MOREAU DO on 2018 12:56 PM POCT-GLUCOSE [id number] 12:28:00* Test Item Value Reference Range Interpretation Comments POC-GLUCOSE METER (BEAKER) (test code = 1538) 123 mg/dL 70-110 H : TESTED AT [address], [address]: Chainer/Molding Machine Operator ID = [id number] for CAAL, NOVA POCT-GLUCOSE [id number] 10:07:00* Test Item Value Reference Range Interpretation Comments POC-GLUCOSE METER (BEAKER) (test code = 1538) 104 mg/dL 70-110 : TESTED AT [facility] [address] [facility], [address]: Chainer/Molding Machine Operator ID = [id number] for CAAL, NOVA POCT-GLUCOSE [id number] 10:04:00* Test Item Value Reference Range Interpretation Comments POC-GLUCOSE METER (BEAKER) (test code = 1538) 107 mg/dL 70-110 : TESTED AT [facility] [address] [place], [address]: Chainer/Molding Machine Operator ID = [id number] for TARA DOWNS BASIC METABOLIC [id number] 04:50:00* Test Item Value Reference Range Interpretation Comments SODIUM (BEAKER) (test code = 381) 139 meq/L 136-145 POTASSIUM (BEAKER) (test code = 379) 4.0 meq/L 3.5-5.1 CHLORIDE (BEAKER) (test code = 382) 102 meq/L 98-107 CO2 (BEAKER) (test code = 355) 25 meq/L 22-29 BLOOD UREA NITROGEN (BEAKER) (test code = 354) 17 mg/dL 7-21 CREATININE (BEAKER) (test code = 358) 6.61 mg/dL 0.57-1.25 H GLUCOSE RANDOM (BEAKER) (test code = 652) 159 mg/dL 70-105 H CALCIUM (BEAKER) (test code = 697) 9.2 mg/dL 8.4-10.2 EGFR (BEAKER) (test code = 1092) 9 mL/min/1.73 sq m ESTIMATED GFR IS NOT ACCURATE CREATININE CLEARANCE IN PREDICTING GLOMERULAR FILTRATION RATE. ESTIMATED GFR IS NOT APPLICABLE FOR DIALYSIS PATIENTS. CBC W/PLT COUNT & AUTO [id number] 04:01:00* Test Item Value Reference Range Interpretation Comments WHITE BLOOD CELL COUNT (BEAKER) (test code = 775) 5.0 K/ L 3.5- 10.5 RED BLOOD CELL COUNT (BEAKER) (test code = 761) 2.62 M/ L 4.63-6 .08 L HEMOGLOBIN (BEAKER) (test code = 410) 8.0 GM/DL 13.7-17.5 L HEMATOCRIT (BEAKER) (test code = 411) 25.3 % 40.1-51.0 L MEAN CORPUSCULAR VOLUME (BEAKER) (test code = 753) 96.6 fL 79. 0-92.2 H MEAN CORPUSCULAR HEMOGLOBIN (BEAKER) (test code = 751) 30.5 pg 25.7-32.2 MEAN CORPUSCULAR HEMOGLOBIN CONC (BEAKER) (test code = 752) 31.6 GM/DL 32.3-36.5 L RED CELL DISTRIBUTION WIDTH (BEAKER) (test code = 412) 16.2 % 11.6-14.4 H PLATELET COUNT (BEAKER) (test code = 756) 154 K/CU MM 150-450 MEAN PLATELET VOLUME (BEAKER) (test code = 754) 9.4 fL 9.4-12 .4 NUCLEATED RED BLOOD CELLS (BEAKER) (test code = 413) 0 /100 WBC 0 -0 NEUTROPHILS RELATIVE PERCENT (BEAKER) (test code = 429) 81 % LYMPHOCYTES RELATIVE PERCENT (BEAKER) (test code = 430) 11 % MONOCYTES RELATIVE PERCENT (BEAKER) (test code = 431) 5 % EOSINOPHILS RELATIVE PERCENT (BEAKER) (test code = 432) 2 % BASOPHILS RELATIVE PERCENT (BEAKER) (test code = 437) 1 % NEUTROPHILS ABSOLUTE COUNT (BEAKER) (test code = 670) 4.05 K/ L 1.78-5.38 LYMPHOCYTES ABSOLUTE COUNT (BEAKER) (test code = 414) 0.54 K/ L 1.32-3.57 L MONOCYTES ABSOLUTE COUNT (BEAKER) (test code = 415) 0.25 K/ L 0. 30-0.82 L EOSINOPHILS ABSOLUTE COUNT (BEAKER) (test code = 416) 0.12 K/ L 0.04-0.54 BASOPHILS ABSOLUTE COUNT (BEAKER) (test code = 417) 0.03 K/ L 0. 01-0.08 IMMATURE GRANULOCYTES-RELATIVE PERCENT (BEAKER) (test code = 2801) 1 % 0-1 POCT-GLUCOSE [id number] 21:28:00* Test Item Value Reference Range Interpretation Comments POC-GLUCOSE METER (BEAKER) (test code = 1538) 135 mg/dL 70-110 H : TESTED AT [address], [address]: Chainer/Molding Machine Operator ID = [id number] for ALANIS LOVELL TISSUE [id number] 16:18:00Surgical Pathology Report Case: [id number] Authorizing Provider: Kj Ramirez DPM Collected: 01/18/2019 0915 Ordering Location: [facility] PERIOPERATIVE Received: 01/18/2019 1233 SERVICES Pathologist: Fede Patrick MD Specimen: Soft Tissue, Other, soft tissue left Heel PART A LEFT HEEL SOFT TISSUE, DEBRIDEMENT:GANGRENOUS NECROSIS OF SKIN AND SOFT TISSUE. Signing Pathologist Direct Phone Line: [phone] signed by Fede Patrick MD on 01/23/2019 at 4:18 [id number] foot infection A. Soft tissue left heelReceived in formalin labeled with the patient's name Addi Crawford, and accession number [id number] part A and "soft tissue left heel" are unoriented two fragments of skin and soft tissue measuring 8 x 6.5 x 1 cm in aggregate. The largest fragment contains a black-green, necrotic, central area measuring 5.5 x 4.5 cm and extending to the presumed deep portion. The presumed deep soft tissue surface is inked black. The necrotic area is surrounded by a rim of skin, and there is additional detached portion of skin and underlying soft tissue. Serially sectioned reveals necrotic soft tissue underlying the ulcer. The closest peripheral skin and underlying soft tissue margin is submitted in cassette A1.Section code: A1-peripheral skin and underlying soft tissue nearest ulcer; S4-X9-rrvasorawmpyyl sections of ulcer and adjacent skin; A5-apprenticeship representative section of detached small tissue fragment. SB/ewPERFORMED. [facility], Department of Pathology, [address] [place] [address], MracqkEmanate [facility], Department of Pathology, [address] [place] [address], QtgrsgEmanate Health/[facility], Department of Pathology, [address] [place] [address], EEBSQUSVG [id number] 14:47:00* Test Item Value Reference Range Interpretation Comments CULTURE (BEAKER) (test code = 1095) A 2+ Bacteroides ovatusThis is an appended report. These organism results have been appended to a previously final verified report. Anaerobic organisms of more than 3 types. No further work up performed.POCT- GLUCOSE [id number] 12:39:00* Test Item Value Reference Range Interpretation Comments POC-GLUCOSE METER (BEAKER) (test code = 1538) 134 mg/dL 70-110 H : TESTED AT [address], [address]: Chainer/Molding Machine Operator ID = [id number] for NOVA CAAL SURGICALLY OBTAINED CULTURE + GRAM [id number] 09:06:00* Test Item Value Reference Range Interpretation Comments CULTURE (BEAKER) (test code = 1095) PSEUDOMONAS AERUGINOSA A 3+ Pseudomonas aeruginosa Amikacin (test code = 1) S Aztreonam (test code = 32) R Cefepime (test code = 51) S Ceftazidime (test code = 27) S Ciprofloxacin (test code = 7) R Gentamicin (test code = 18) S Levofloxacin (test code = 22) R Meropenem (test code = 34) S Piperacillin (test code = 24) S Piperacillin + Tazobactam (test code = 29) S Tobramycin (test code = 25) S CULTURE (BEAKER) (test code = 1095) PSEUDOMONAS AERUGINOSA A 3+ Pseudomonas aeruginosaof a second type Ceftolozane/Tazobactam (test code = 249) S Amikacin (test code = 1) S Aztreonam (test code = 32) R Cefepime (test code = 51) R Ceftazidime (test code = 27) S Ciprofloxacin (test code = 7) R Gentamicin (test code = 18) S Levofloxacin (test code = 22) R Meropenem (test code = 34) R Piperacillin (test code = 24) S Piperacillin + Tazobactam (test code = 29) S Tobramycin (test code = 25) S CULTURE (BEAKER) (test code = 1095) STAPHYLOCOCCUS AUREUS A 3+ Staphylococcus aureus Clindamycin (test code = 10) S Erythromycin (test code = 4) S Linezolid (test code = 40) S Nitrofurantoin (test code = 23) S Oxacillin (test code = 14) S Rifampin (test code = 43) S Tetracycline (test code = 2) S Trimethoprim + Sulfamethoxazole (test code = 47) S Vancomycin (test code = 13) S CULTURE (BEAKER) (test code = 1095) ENTEROCOCCUS SPECIES A 3+ Enterococcus species Ampicillin (test code = 26) S Linezolid (test code = 40) S Vancomycin (test code = 13) S GRAM STAIN RESULT (BEAKER) (test code = 1123) <1+ WBCs GRAM STAIN RESULT (BEAKER) (test code = 816081) 1+ gra m positive cocci in chains and pairs GRAM STAIN RESULT (BEAKER) (test code = 188671) 1+ gra m positive cocci in chains and pairs GRAM STAIN RESULT (BEAKER) (test code = 230916) <1+ gr am positive cocci in clusters GRAM STAIN RESULT (BEAKER) (test code = 891651) <1+ gram negative r ods POCT-GLUCOSE [id number] 08:27:00* Test Item Value Reference Range Interpretation Comments POC-GLUCOSE METER (BEAKER) (test code = 1538) 111 mg/dL 70-110 H : TESTED AT [facility] [address] [facility], [address]: Chainer/Molding Machine Operator ID = [id number] for NOVA CAAL CBC W/PLT COUNT & AUTO [id number] 05:29:00* Test Item Value Reference Range Interpretation Comments WHITE BLOOD CELL COUNT (BEAKER) (test code = 775) 6.5 K/ L 3.5- 10.5 RED BLOOD CELL COUNT (BEAKER) (test code = 761) 2.62 M/ L 4.63-6 .08 L HEMOGLOBIN (BEAKER) (test code = 410) 8.0 GM/DL 13.7-17.5 L HEMATOCRIT (BEAKER) (test code = 411) 24.9 % 40.1-51.0 L MEAN CORPUSCULAR VOLUME (BEAKER) (test code = 753) 95.0 fL 79. 0-92.2 H MEAN CORPUSCULAR HEMOGLOBIN (BEAKER) (test code = 751) 30.5 pg 25.7-32.2 MEAN CORPUSCULAR HEMOGLOBIN CONC (BEAKER) (test code = 752) 32.1 GM/DL 32.3-36.5 L RED CELL DISTRIBUTION WIDTH (BEAKER) (test code = 412) 15.9 % 11.6-14.4 H PLATELET COUNT (BEAKER) (test code = 756) 162 K/CU MM 150-450 MEAN PLATELET VOLUME (BEAKER) (test code = 754) 9.2 fL 9.4-12 .4 L NUCLEATED RED BLOOD CELLS (BEAKER) (test code = 413) 0 /100 WBC 0 -0 NEUTROPHILS RELATIVE PERCENT (BEAKER) (test code = 429) 83 % LYMPHOCYTES RELATIVE PERCENT (BEAKER) (test code = 430) 10 % MONOCYTES RELATIVE PERCENT (BEAKER) (test code = 431) 4 % EOSINOPHILS RELATIVE PERCENT (BEAKER) (test code = 432) 2 % BASOPHILS RELATIVE PERCENT (BEAKER) (test code = 437) 1 % NEUTROPHILS ABSOLUTE COUNT (BEAKER) (test code = 670) 5.34 K/ L 1.78-5.38 LYMPHOCYTES ABSOLUTE COUNT (BEAKER) (test code = 414) 0.64 K/ L 1.32-3.57 L MONOCYTES ABSOLUTE COUNT (BEAKER) (test code = 415) 0.25 K/ L 0. 30-0.82 L EOSINOPHILS ABSOLUTE COUNT (BEAKER) (test code = 416) 0.14 K/ L 0.04-0.54 BASOPHILS ABSOLUTE COUNT (BEAKER) (test code = 417) 0.03 K/ L 0. 01-0.08 IMMATURE GRANULOCYTES-RELATIVE PERCENT (BEAKER) (test code = 2801) 1 % 0-1 BASIC METABOLIC [id number] 05:28:00* Test Item Value Reference Range Interpretation Comments SODIUM (BEAKER) (test code = 381) 133 meq/L 136-145 L POTASSIUM (BEAKER) (test code = 379) 4.5 meq/L 3.5-5.1 CHLORIDE (BEAKER) (test code = 382) 99 meq/L 98-107 CO2 (BEAKER) (test code = 355) 23 meq/L 22-29 BLOOD UREA NITROGEN (BEAKER) (test code = 354) 37 mg/dL 7-21 H CREATININE (BEAKER) (test code = 358) 9.94 mg/dL 0.57-1.25 H GLUCOSE RANDOM (BEAKER) (test code = 652) 120 mg/dL 70-105 H CALCIUM (BEAKER) (test code = 697) 9.3 mg/dL 8.4-10.2 EGFR (BEAKER) (test code = 1092) 5 mL/min/1.73 sq m ESTIMATED GFR IS NOT ACCURATE CREATININE CLEARANCE IN PREDICTING GLOMERULAR FILTRATION RATE. ESTIMATED GFR IS NOT APPLICABLE FOR DIALYSIS PATIENTS. POCT-GLUCOSE [id number] 21:21:00* Test Item Value Reference Range Interpretation Comments POC-GLUCOSE METER (BEAKER) (test code = 1538) 134 mg/dL 70-110 H : TESTED AT [address], [address]: Chainer/Molding Machine Operator ID = [id number] for JAJA KC POCT-GLUCOSE [id number] 16:03:00* Test Item Value Reference Range Interpretation Comments POC-GLUCOSE METER (BEAKER) (test code = 1538) 120 mg/dL 70-110 H : TESTED AT [facility] [address] [facility], [address]: Chainer/Molding Machine Operator ID = [id number] for GAVIN ERICKSON POCT-GLUCOSE [id number] 12:26:00* Test Item Value Reference Range Interpretation Comments POC-GLUCOSE METER (BEAKER) (test code = 1538) 118 mg/dL 70-110 H : TESTED AT [facility] [address] [facility], [address]: Chainer/Molding Machine Operator ID = [id number] for Queen Mendenhall Surgically obtained culture + gram [id number] 09:22:00* Test Item Value Reference Range Interpretation Comments Result (test code = 6463-4) <1+ Same organism has been isolated from cultures(s) of the same body site and collection date. Repeat identification and susceptibility testing performed only after consultation with the clinical mi crobiology laboratory. A Refer to previous culture ofPseudomonas aeruginosa Gram Stain Result (test code = 1123) No organisms seen Lab Interpretation (test code = 56945-4) [facility] GRAM [id number] 09:22:00* Test Item Value Reference Range Interpretation Comments CULTURE (BEAKER) (test code = 1095) A <1+ Same organism has been isolated from cultures(s) of the same body site and collection date. Repeat identification and susceptibility testing performed only after consultation with the clinical microbiology laboratory.Refer to previous culture ofPseudomonas aeruginosa GRAM STAIN RESULT (BEAKER) (test code = 1123) No White blood cells seen GRAM STAIN RESULT (BEAKER) (test code = 061613) No organisms seen POCT-GLUCOSE [id number] 07:24:00* Test Item Value Reference Range Interpretation Comments POC-GLUCOSE METER (BEAKER) (test code = 1538) 133 mg/dL 70-110 H : TESTED AT [facility] [address] [facility], [address]: Chainer/Molding Machine Operator ID = [id number] for MosesQueen BLOOD [id number] 07:00:00* Test Item Value Reference Range Interpretation Comments CULTURE (BEAKER) (test code = 1095) No growth in 5 days BLOOD [id number] 07:00:00* Test Item Value Reference Range Interpretation Comments CULTURE (BEAKER) (test code = 1095) No growth in 5 days BASIC METABOLIC [id number] 06:20:00* Test Item Value Reference Range Interpretation Comments SODIUM (BEAKER) (test code = 381) 132 meq/L 136-145 L POTASSIUM (BEAKER) (test code = 379) 4.2 meq/L 3.5-5.1 CHLORIDE (BEAKER) (test code = 382) 99 meq/L 98-107 CO2 (BEAKER) (test code = 355) 23 meq/L 22-29 BLOOD UREA NITROGEN (BEAKER) (test code = 354) 31 mg/dL 7-21 H CREATININE (BEAKER) (test code = 358) 8.64 mg/dL 0.57-1.25 H GLUCOSE RANDOM (BEAKER) (test code = 652) 142 mg/dL 70-105 H CALCIUM (BEAKER) (test code = 697) 9.1 mg/dL 8.4-10.2 EGFR (BEAKER) (test code = 1092) 6 mL/min/1.73 sq m ESTIMATED GFR IS NOT ACCURATE CREATININE CLEARANCE IN PREDICTING GLOMERULAR FILTRATION RATE. ESTIMATED GFR IS NOT APPLICABLE FOR DIALYSIS PATIENTS. CBC W/PLT COUNT & AUTO [id number] 05:22:00* Test Item Value Reference Range Interpretation Comments WHITE BLOOD CELL COUNT (BEAKER) (test code = 775) 5.7 K/ L 3.5- 10.5 RED BLOOD CELL COUNT (BEAKER) (test code = 761) 2.62 M/ L 4.63-6 .08 L HEMOGLOBIN (BEAKER) (test code = 410) 8.0 GM/DL 13.7-17.5 L HEMATOCRIT (BEAKER) (test code = 411) 25.0 % 40.1-51.0 L MEAN CORPUSCULAR VOLUME (BEAKER) (test code = 753) 95.4 fL 79. 0-92.2 H MEAN CORPUSCULAR HEMOGLOBIN (BEAKER) (test code = 751) 30.5 pg 25.7-32.2 MEAN CORPUSCULAR HEMOGLOBIN CONC (BEAKER) (test code = 752) 32.0 GM/DL 32.3-36.5 L RED CELL DISTRIBUTION WIDTH (BEAKER) (test code = 412) 15.9 % 11.6-14.4 H PLATELET COUNT (BEAKER) (test code = 756) 169 K/CU MM 150-450 MEAN PLATELET VOLUME (BEAKER) (test code = 754) 9.2 fL 9.4-12 .4 L NUCLEATED RED BLOOD CELLS (BEAKER) (test code = 413) 0 /100 WBC 0 -0 NEUTROPHILS RELATIVE PERCENT (BEAKER) (test code = 429) 81 % LYMPHOCYTES RELATIVE PERCENT (BEAKER) (test code = 430) 10 % MONOCYTES RELATIVE PERCENT (BEAKER) (test code = 431) 5 % EOSINOPHILS RELATIVE PERCENT (BEAKER) (test code = 432) 2 % BASOPHILS RELATIVE PERCENT (BEAKER) (test code = 437) 1 % NEUTROPHILS ABSOLUTE COUNT (BEAKER) (test code = 670) 4.64 K/ L 1.78-5.38 LYMPHOCYTES ABSOLUTE COUNT (BEAKER) (test code = 414) 0.59 K/ L 1.32-3.57 L MONOCYTES ABSOLUTE COUNT (BEAKER) (test code = 415) 0.26 K/ L 0. 30-0.82 L EOSINOPHILS ABSOLUTE COUNT (BEAKER) (test code = 416) 0.12 K/ L 0.04-0.54 BASOPHILS ABSOLUTE COUNT (BEAKER) (test code = 417) 0.03 K/ L 0. 01-0.08 IMMATURE GRANULOCYTES-RELATIVE PERCENT (BEAKER) (test code = 2801) 1 % 0-1 POCT-GLUCOSE [id number] 23:11:00* Test Item Value Reference Range Interpretation Comments POC-GLUCOSE METER (BEAKER) (test code = 1538) 134 mg/dL 70-110 H : TESTED AT [facility] [address] [facility], [address]: Chainer/Molding Machine Operator ID = [id number] for JAJA KC POCT-GLUCOSE [id number] 17:55:00* Test Item Value Reference Range Interpretation Comments POC-GLUCOSE METER (BEAKER) (test code = 1538) 117 mg/dL 70-110 H : TESTED AT [facility] [address] [facility], [address]: Chainer/Molding Machine Operator ID = [id number] for Queen [place] POCT-GLUCOSE [id number] 12:24:00* Test Item Value Reference Range Interpretation Comments POC-GLUCOSE METER (BEAKER) (test code = 1538) 125 mg/dL 70-110 H : TESTED AT [facility] [address] [facility], [address]: Chainer/Molding Machine Operator ID = [id number] for Queen Mend[place]all POCT-GLUCOSE [id number] 07:16:00* Test Item Value Reference Range Interpretation Comments POC-GLUCOSE METER (BEAKER) (test code = 1538) 111 mg/dL 70-110 H : TESTED AT [facility] [address] [facility], [address]: Chainer/Molding Machine Operator ID = [id number] for Queen Mendenhall BASIC METABOLIC [id number] 05:30:00* Test Item Value Reference Range Interpretation Comments SODIUM (BEAKER) (test code = 381) 137 meq/L 136-145 POTASSIUM (BEAKER) (test code = 379) 4.0 meq/L 3.5-5.1 CHLORIDE (BEAKER) (test code = 382) 101 meq/L 98-107 CO2 (BEAKER) (test code = 355) 27 meq/L 22-29 BLOOD UREA NITROGEN (BEAKER) (test code = 354) 23 mg/dL 7-21 H CREATININE (BEAKER) (test code = 358) 6.39 mg/dL 0.57-1.25 H GLUCOSE RANDOM (BEAKER) (test code = 652) 116 mg/dL 70-105 H CALCIUM (BEAKER) (test code = 697) 8.8 mg/dL 8.4-10.2 EGFR (BEAKER) (test code = 1092) 9 mL/min/1.73 sq m ESTIMATED GFR IS NOT ACCURATE CREATININE CLEARANCE IN PREDICTING GLOMERULAR FILTRATION RATE. ESTIMATED GFR IS NOT APPLICABLE FOR DIALYSIS PATIENTS. CBC W/PLT COUNT & AUTO [id number] 04:49:00* Test Item Value Reference Range Interpretation Comments WHITE BLOOD CELL COUNT (BEAKER) (test code = 775) 5.0 K/ L 3.5- 10.5 RED BLOOD CELL COUNT (BEAKER) (test code = 761) 2.54 M/ L 4.63-6 .08 L HEMOGLOBIN (BEAKER) (test code = 410) 7.8 GM/DL 13.7-17.5 L HEMATOCRIT (BEAKER) (test code = 411) 24.2 % 40.1-51.0 L MEAN CORPUSCULAR VOLUME (BEAKER) (test code = 753) 95.3 fL 79. 0-92.2 H MEAN CORPUSCULAR HEMOGLOBIN (BEAKER) (test code = 751) 30.7 pg 25.7-32.2 MEAN CORPUSCULAR HEMOGLOBIN CONC (BEAKER) (test code = 752) 32.2 GM/DL 32.3-36.5 L RED CELL DISTRIBUTION WIDTH (BEAKER) (test code = 412) 16.1 % 11.6-14.4 H PLATELET COUNT (BEAKER) (test code = 756) 187 K/CU MM 150-450 MEAN PLATELET VOLUME (BEAKER) (test code = 754) 9.1 fL 9.4-12 .4 L NUCLEATED RED BLOOD CELLS (BEAKER) (test code = 413) 0 /100 WBC 0 -0 NEUTROPHILS RELATIVE PERCENT (BEAKER) (test code = 429) 78 % LYMPHOCYTES RELATIVE PERCENT (BEAKER) (test code = 430) 13 % MONOCYTES RELATIVE PERCENT (BEAKER) (test code = 431) 6 % EOSINOPHILS RELATIVE PERCENT (BEAKER) (test code = 432) 2 % BASOPHILS RELATIVE PERCENT (BEAKER) (test code = 437) 0 % NEUTROPHILS ABSOLUTE COUNT (BEAKER) (test code = 670) 3.84 K/ L 1.78-5.38 LYMPHOCYTES ABSOLUTE COUNT (BEAKER) (test code = 414) 0.66 K/ L 1.32-3.57 L MONOCYTES ABSOLUTE COUNT (BEAKER) (test code = 415) 0.30 K/ L 0. 30-0.82 EOSINOPHILS ABSOLUTE COUNT (BEAKER) (test code = 416) 0.10 K/ L 0.04-0.54 BASOPHILS ABSOLUTE COUNT (BEAKER) (test code = 417) 0.02 K/ L 0. 01-0.08 IMMATURE GRANULOCYTES-RELATIVE PERCENT (BEAKER) (test code = 2801) 1 % 0-1 POCT-GLUCOSE [id number] 20:10:00* Test Item Value Reference Range Interpretation Comments POC-GLUCOSE METER (BEAKER) (test code = 1538) 130 mg/dL 70-110 H : TESTED AT [address], [address]: Chainer/Molding Machine Operator ID = [id number] for JAJA KC POCT-GLUCOSE [id number] 14:49:00* Test Item Value Reference Range Interpretation Comments POC-GLUCOSE METER (BEAKER) (test code = 1538) 110 mg/dL 70-110 : TESTED AT [facility] [address] [facility], [address]: Chainer/Molding Machine Operator ID = [id number] for Queen [place] HEMOGLOBIN AND [id number] 13:37:00* Test Item Value Reference Range Interpretation Comments HEMOGLOBIN (BEAKER) (test code = 410) 7.8 GM/DL 13.7-17.5 L HEMATOCRIT (BEAKER) (test code = 411) 24.4 % 40.1-51.0 L [id number] 13:15:00* Test Item Value Reference Range Interpretation Comments ACTIVATED CLOTTING TIME (BEAKER) (test code = 441) 274 sec Reference Range: 74-137 seconds, Baseline/TESTED AT [facility] [address] [facility] [address] POCT-GLUCOSE [id number] 11:38:00* Test Item Value Reference Range Interpretation Comments POC-GLUCOSE METER (BEAKER) (test code = 1538) 99 mg/dL 70-110 : TESTED AT [facility] [address] [facility], [address]: Chainer/Molding Machine Operator ID = [id number] for ARELIS KAY POCT-GLUCOSE [id number] 07:52:00* Test Item Value Reference Range Interpretation Comments POC-GLUCOSE METER (BEAKER) (test code = 1538) 111 mg/dL 70-110 H : TESTED AT [place] [id number] [facility], [address]: Chainer/Molding Machine Operator ID = [id number] for ARELIS KAY BASIC METABOLIC [id number] 05:43:00* Test Item Value Reference Range Interpretation Comments SODIUM (BEAKER) (test code = 381) 135 meq/L 136-145 L POTASSIUM (BEAKER) (test code = 379) 4.3 meq/L 3.5-5.1 CHLORIDE (BEAKER) (test code = 382) 97 meq/L 98-107 L CO2 (BEAKER) (test code = 355) 29 meq/L 22-29 BLOOD UREA NITROGEN (BEAKER) (test code = 354) 39 mg/dL 7-21 H CREATININE (BEAKER) (test code = 358) 8.82 mg/dL 0.57-1.25 H GLUCOSE RANDOM (BEAKER) (test code = 652) 125 mg/dL 70-105 H CALCIUM (BEAKER) (test code = 697) 8.9 mg/dL 8.4-10.2 EGFR (BEAKER) (test code = 1092) 6 mL/min/1.73 sq m ESTIMATED GFR IS NOT ACCURATE CREATININE CLEARANCE IN PREDICTING GLOMERULAR FILTRATION RATE. ESTIMATED GFR IS NOT APPLICABLE FOR DIALYSIS PATIENTS. CBC W/PLT COUNT & AUTO [id number] 05:39:00* Test Item Value Reference Range Interpretation Comments WHITE BLOOD CELL COUNT (BEAKER) (test code = 775) 5.7 K/ L 3.5- 10.5 RED BLOOD CELL COUNT (BEAKER) (test code = 761) 2.40 M/ L 4.63-6 .08 L HEMOGLOBIN (BEAKER) (test code = 410) 7.2 GM/DL 13.7-17.5 L HEMATOCRIT (BEAKER) (test code = 411) 22.6 % 40.1-51.0 L MEAN CORPUSCULAR VOLUME (BEAKER) (test code = 753) 94.2 fL 79. 0-92.2 H MEAN CORPUSCULAR HEMOGLOBIN (BEAKER) (test code = 751) 30.0 pg 25.7-32.2 MEAN CORPUSCULAR HEMOGLOBIN CONC (BEAKER) (test code = 752) 31.9 GM/DL 32.3-36.5 L RED CELL DISTRIBUTION WIDTH (BEAKER) (test code = 412) 16.1 % 11.6-14.4 H PLATELET COUNT (BEAKER) (test code = 756) 195 K/CU MM 150-450 MEAN PLATELET VOLUME (BEAKER) (test code = 754) 9.2 fL 9.4-12 .4 L NUCLEATED RED BLOOD CELLS (BEAKER) (test code = 413) 0 /100 WBC 0 -0 NEUTROPHILS RELATIVE PERCENT (BEAKER) (test code = 429) 79 % LYMPHOCYTES RELATIVE PERCENT (BEAKER) (test code = 430) 13 % MONOCYTES RELATIVE PERCENT (BEAKER) (test code = 431) 5 % EOSINOPHILS RELATIVE PERCENT (BEAKER) (test code = 432) 2 % BASOPHILS RELATIVE PERCENT (BEAKER) (test code = 437) 0 % NEUTROPHILS ABSOLUTE COUNT (BEAKER) (test code = 670) 4.51 K/ L 1.78-5.38 LYMPHOCYTES ABSOLUTE COUNT (BEAKER) (test code = 414) 0.76 K/ L 1.32-3.57 L MONOCYTES ABSOLUTE COUNT (BEAKER) (test code = 415) 0.28 K/ L 0. 30-0.82 L EOSINOPHILS ABSOLUTE COUNT (BEAKER) (test code = 416) 0.13 K/ L 0.04-0.54 BASOPHILS ABSOLUTE COUNT (BEAKER) (test code = 417) 0.02 K/ L 0. 01-0.08 IMMATURE GRANULOCYTES-RELATIVE PERCENT (BEAKER) (test code = 2801) 1 % 0-1 Vancomycin level, [id number] 05:13:00* Test Item Value Reference Range Interpretation Comments Vancomycin Rm (test code = 01895-5) 15.1 ug/mL VLADIMIR (test code = VLADIMIR) Reference Range: No Normals [facility], [id number] 05:13:00* Test Item Value Reference Range Interpretation Comments VANCOMYCIN RANDOM (BEAKER) (test code = 523) 15.1 ug/mL Reference Range: No NormalsPOCT-GLUCOSE [id number] 21:55:00* Test Item Value Reference Range Interpretation Comments POC-GLUCOSE METER (BEAKER) (test code = 1538) 134 mg/dL 70-110 H : TESTED AT [address], [address]: Chainer/Molding Machine Operator ID = [id number] for NAS ALANIS POCT-GLUCOSE [id number] 18:42:00* Test Item Value Reference Range Interpretation Comments POC-GLUCOSE METER (BEAKER) (test code = 1538) 142 mg/dL 70-110 H : TESTED AT [place] [id number] [facility], [address]: Chainer/Molding Machine Operator ID = [id number] for CAAL, NOVA POCT-GLUCOSE [id number] 12:01:00* Test Item Value Reference Range Interpretation Comments POC-GLUCOSE METER (BEAKER) (test code = 1538) 128 mg/dL 70-110 H : TESTED AT [place] [id number] [facility], [address]: Chainer/Molding Machine Operator ID = [id number] for CAAL, NOVA POCT-GLUCOSE [id number] 07:43:00* Test Item Value Reference Range Interpretation Comments POC-GLUCOSE METER (BEAKER) (test code = 1538) 110 mg/dL 70-110 : TESTED AT [facility] [address] [facility], [address]: Chainer/Molding Machine Operator ID = [id number] for NOVA CAAL Calcium, [id number] 07:19:00* Test Item Value Reference Range Interpretation Comments Calcium, Ion (test code = 1994-3) 1.11 mmol/L 1.12-1.27 L pH, Blood (test code = 59222-8) 7.42 Lab Interpretation (test code = 58814-2) Abnormal [facility], [id number] 07:19:00* Test Item Value Reference Range Interpretation Comments CALCIUM IONIZED (BEAKER) (test code = 698) 1.11 mmol/L 1.12-1.27 L PH, BLOOD (BEAKER) (test code = 1810) 7.42 BASIC METABOLIC [id number] 05:19:00* Test Item Value Reference Range Interpretation Comments SODIUM (BEAKER) (test code = 381) 138 meq/L 136-145 POTASSIUM (BEAKER) (test code = 379) 4.1 meq/L 3.5-5.1 CHLORIDE (BEAKER) (test code = 382) 99 meq/L 98-107 CO2 (BEAKER) (test code = 355) 30 meq/L 22-29 H BLOOD UREA NITROGEN (BEAKER) (test code = 354) 26 mg/dL 7-21 H CREATININE (BEAKER) (test code = 358) 6.54 mg/dL 0.57-1.25 H GLUCOSE RANDOM (BEAKER) (test code = 652) 110 mg/dL 70-105 H CALCIUM (BEAKER) (test code = 697) 9.3 mg/dL 8.4-10.2 EGFR (BEAKER) (test code = 1092) 9 mL/min/1.73 sq m ESTIMATED GFR IS NOT ACCURATE CREATININE CLEARANCE IN PREDICTING GLOMERULAR FILTRATION RATE. ESTIMATED GFR IS NOT APPLICABLE FOR DIALYSIS PATIENTS. VANCOMYCIN LEVEL, [id number] 05:17:00* Test Item Value Reference Range Interpretation Comments VANCOMYCIN RANDOM (BEAKER) (test code = 523) 20.9 ug/mL Reference Range: No [id number] 05:16:00* Test Item Value Reference Range Interpretation Comments PHOSPHORUS (BEAKER) (test code = 604) 3.1 mg/dL 2.3-4.7 [id number] 05:16:00* Test Item Value Reference Range Interpretation Comments MAGNESIUM (BEAKER) (test code = 627) 2.0 mg/dL 1.6-2.6 CBC W/PLT COUNT & AUTO [id number] 05:07:00* Test Item Value Reference Range Interpretation Comments WHITE BLOOD CELL COUNT (BEAKER) (test code = 775) 7.6 K/ L 3.5- 10.5 RED BLOOD CELL COUNT (BEAKER) (test code = 761) 2.60 M/ L 4.63-6 .08 L HEMOGLOBIN (BEAKER) (test code = 410) 7.9 GM/DL 13.7-17.5 L HEMATOCRIT (BEAKER) (test code = 411) 24.9 % 40.1-51.0 L MEAN CORPUSCULAR VOLUME (BEAKER) (test code = 753) 95.8 fL 79. 0-92.2 H MEAN CORPUSCULAR HEMOGLOBIN (BEAKER) (test code = 751) 30.4 pg 25.7-32.2 MEAN CORPUSCULAR HEMOGLOBIN CONC (BEAKER) (test code = 752) 31.7 GM/DL 32.3-36.5 L RED CELL DISTRIBUTION WIDTH (BEAKER) (test code = 412) 16.4 % 11.6-14.4 H PLATELET COUNT (BEAKER) (test code = 756) 184 K/CU MM 150-450 MEAN PLATELET VOLUME (BEAKER) (test code = 754) 9.6 fL 9.4-12 .4 NUCLEATED RED BLOOD CELLS (BEAKER) (test code = 413) 0 /100 WBC 0 -0 NEUTROPHILS RELATIVE PERCENT (BEAKER) (test code = 429) 82 % LYMPHOCYTES RELATIVE PERCENT (BEAKER) (test code = 430) 10 % MONOCYTES RELATIVE PERCENT (BEAKER) (test code = 431) 5 % EOSINOPHILS RELATIVE PERCENT (BEAKER) (test code = 432) 2 % BASOPHILS RELATIVE PERCENT (BEAKER) (test code = 437) 0 % NEUTROPHILS ABSOLUTE COUNT (BEAKER) (test code = 670) 6.18 K/ L 1.78-5.38 H LYMPHOCYTES ABSOLUTE COUNT (BEAKER) (test code = 414) 0.73 K/ L 1.32-3.57 L MONOCYTES ABSOLUTE COUNT (BEAKER) (test code = 415) 0.41 K/ L 0. 30-0.82 EOSINOPHILS ABSOLUTE COUNT (BEAKER) (test code = 416) 0.16 K/ L 0.04-0.54 BASOPHILS ABSOLUTE COUNT (BEAKER) (test code = 417) 0.02 K/ L 0. 01-0.08 IMMATURE GRANULOCYTES-RELATIVE PERCENT (BEAKER) (test code = 2801) 1 % 0-1 POCT-GLUCOSE [id number] 22:45:00* Test Item Value Reference Range Interpretation Comments POC-GLUCOSE METER (BEAKER) (test code = 1538) 108 mg/dL 70-110 : TESTED AT [facility] [address] [facility], [address]: Chainer/Molding Machine Operator ID = [id number] for IDANIA L[address] HEMODIALYSIS [id number] 22:32:00Shanell Pacheco RN 01/18/2019 10:32 PM Tolerated hd well with net UF of 3000 ml today. 1 unit RBC given during hd with no problem. Report given to MARKOS Ruiz. Post HD Vitals:Temp: 97.2 F (36.2 C)Temp Source: OralHeart Rate: 76Heart Rate Source: Monitor/Pulse OxResp: 20BP: 160/73 Lab Results Component Value Date GLUCOSE [...] Date HEPBSAG Nonreactive 01/18/2019 [facility] [id number] 16:45:00* Test Item Value Reference Range Interpretation Comments POC-GLUCOSE METER (BEAKER) (test code = 1538) 173 mg/dL 70-110 H : TESTED AT [facility] [address] [facility], [address]: Chainer/Molding Machine Operator ID = [id number] for RIGOBERTO BALLARD RAD, FOOT, MIN 3 VIEWS, [id number] 12:45:00Reason for exam:->post operative FINAL REPORT RAD, FOOT, MIN 3 VIEWS, LEFT INDICATION: pos t operative COMPARISON: None TECHNIQUE: AP, lateral and oblique radiographs of t he left foot FINDINGS: Increased lucency subjacent to the calcaneus with presume d increased osseous exposure. It is unclear if this is postsurgical or represent s progression of soft tissue ulcer. No radiographic osteomyelitis of the subjace nt calcaneus, however, osteonecrosis cannot be definitively excluded radiographi aditi. 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 Postsurgical changes of the second metatarsal. Severe d egenerative changes of the third MTP joint. Vascular calcifications. Degenerati ve changes of the ankle. Erosive changes of the lateral aspect of the fourth met atarsal head, correlate clinically. Osteopenia. Signed: Timmy Amezquita MDReport Verified Date/Time: 01/18/2019 12:45:21 Reading Location: [facility] Reading Room Electronically signed by: TIMMY AMEZQUITA MD on 12/31 12:45 PM POCT-GLUCOSE [id number] 12:35:00* Test Item Value Reference Range Interpretation Comments POC-GLUCOSE METER (BEAKER) (test code = 1538) 145 mg/dL 70-110 H : TESTED AT [facility] [address] [facility], [address]: Chainer/Molding Machine Operator ID = [id number] for NOVA CAAL HEPATITIS B SURFACE [id number] 04:57:00* Test Item Value Reference Range Interpretation Comments HEPATITIS B SURFACE ANTIGEN (2) (BEAKER) (test code = 2585) Nonreactive Nonreactive BASIC METABOLIC [id number] 04:48:00* Test Item Value Reference Range Interpretation Comments SODIUM (BEAKER) (test code = 381) 134 meq/L 136-145 L POTASSIUM (BEAKER) (test code = 379) 4.5 meq/L 3.5-5.1 Specimen slightly hemolyzed CHLORIDE (BEAKER) (test code = 382) 95 meq/L 98-107 L CO2 (BEAKER) (test code = 355) 29 meq/L 22-29 BLOOD UREA NITROGEN (BEAKER) (test code = 354) 38 mg/dL 7-21 H CREATININE (BEAKER) (test code = 358) 8.42 mg/dL 0.57-1.25 H Specimen slightly hemolyzed GLUCOSE RANDOM (BEAKER) (test code = 652) 166 mg/dL 70-105 H CALCIUM (BEAKER) (test code = 697) 8.9 mg/dL 8.4-10.2 EGFR (BEAKER) (test code = 1092) 7 mL/min/1.73 sq m ESTIMATED GFR IS NOT ACCURATE CREATININE CLEARANCE IN PREDICTING GLOMERULAR FILTRATION RATE. ESTIMATED GFR IS NOT APPLICABLE FOR DIALYSIS PATIENTS. VANCOMYCIN LEVEL, [id number] 04:33:00* Test Item Value Reference Range Interpretation Comments VANCOMYCIN RANDOM (BEAKER) (test code = 523) 13.9 ug/mL Reference Range: No NormalsCBC W/PLT COUNT & AUTO [id number] 04:32:00* Test Item Value Reference Range Interpretation Comments WHITE BLOOD CELL COUNT (BEAKER) (test code = 775) 9.7 K/ L 3.5- 10.5 RED BLOOD CELL COUNT (BEAKER) (test code = 761) 2.13 M/ L 4.63-6 .08 L HEMOGLOBIN (BEAKER) (test code = 410) 6.5 GM/DL 13.7-17.5 L HEMATOCRIT (BEAKER) (test code = 411) 20.6 % 40.1-51.0 L MEAN CORPUSCULAR VOLUME (BEAKER) (test code = 753) 96.7 fL 79. 0-92.2 H MEAN CORPUSCULAR HEMOGLOBIN (BEAKER) (test code = 751) 30.5 pg 25.7-32.2 MEAN CORPUSCULAR HEMOGLOBIN CONC (BEAKER) (test code = 752) 31.6 GM/DL 32.3-36.5 L RED CELL DISTRIBUTION WIDTH (BEAKER) (test code = 412) 15.9 % 11.6-14.4 H PLATELET COUNT (BEAKER) (test code = 756) 176 K/CU MM 150-450 MEAN PLATELET VOLUME (BEAKER) (test code = 754) 9.5 fL 9.4-12 .4 NUCLEATED RED BLOOD CELLS (BEAKER) (test code = 413) 0 /100 WBC 0 -0 NEUTROPHILS RELATIVE PERCENT (BEAKER) (test code = 429) 88 % LYMPHOCYTES RELATIVE PERCENT (BEAKER) (test code = 430) 6 % MONOCYTES RELATIVE PERCENT (BEAKER) (test code = 431) 4 % EOSINOPHILS RELATIVE PERCENT (BEAKER) (test code = 432) 1 % BASOPHILS RELATIVE PERCENT (BEAKER) (test code = 437) 0 % NEUTROPHILS ABSOLUTE COUNT (BEAKER) (test code = 670) 8.54 K/ L 1.78-5.38 H LYMPHOCYTES ABSOLUTE COUNT (BEAKER) (test code = 414) 0.54 K/ L 1.32-3.57 L MONOCYTES ABSOLUTE COUNT (BEAKER) (test code = 415) 0.42 K/ L 0. 30-0.82 EOSINOPHILS ABSOLUTE COUNT (BEAKER) (test code = 416) 0.13 K/ L 0.04-0.54 BASOPHILS ABSOLUTE COUNT (BEAKER) (test code = 417) 0.02 K/ L 0. 01-0.08 IMMATURE GRANULOCYTES-RELATIVE PERCENT (BEAKER) (test code = 2801) 1 % 0-1 [id number] 04:31:00* Test Item Value Reference Range Interpretation Comments MAGNESIUM (BEAKER) (test code = 627) 2.0 mg/dL 1.6-2.6 Specimen slightly hemolyzed [id number] 04:31:00* Test Item Value Reference Range Interpretation Comments PHOSPHORUS (BEAKER) (test code = 604) 3.5 mg/dL 2.3-4.7 Specimen slightly hemolyzed CALCIUM, [id number] 04:28:00* Test Item Value Reference Range Interpretation Comments CALCIUM IONIZED (BEAKER) (test code = 698) 1.06 mmol/L 1.12-1.27 L PH, BLOOD (BEAKER) (test code = 1810) 7.51 POCT-GLUCOSE [id number] 23:28:00* Test Item Value Reference Range Interpretation Comments POC-GLUCOSE METER (BEAKER) (test code = 1538) 127 mg/dL 70-110 H : TESTED AT [facility] [address] [facility], [address]: Chainer/Molding Machine Operator ID = [id number] for ALEX KCA POCT-GLUCOSE [id number] 20:32:00* Test Item Value Reference Range Interpretation Comments POC-GLUCOSE METER (BEAKER) (test code = 1538) 116 mg/dL 70-110 H : TESTED AT [facility] [address] [facility], [address]: Chainer/Molding Machine Operator ID = [id number] for SABRINA KCHIA POCT-GLUCOSE [id number] 18:30:00* Test Item Value Reference Range Interpretation Comments POC-GLUCOSE METER (BEAKER) (test code = 1538) 136 mg/dL 70-110 H : TESTED AT [address], [address]: Chainer/Molding Machine Operator ID = [id number] for JOSE M MCDOWELL Arterial doppler leg, [id number] 10:24:56Ejection [facility] ECHO HEARTLAB MKCKESSON CPACSRight ImpressionFOR COMPARISON1. The posterior tibial and dorsalis pedis arteries are patent withbiphasic/ triphasic Doppler waveforms.2. The PT pressure is 231 mmHg with an EUGENE of 1.41 and the DP pressure is285 mmHg with an EUGENE of 1.7, within non-compressible artery range.3. The great toe pressure is 88 mmHg with an abnormal TBI of 0.54.4. The digits have adequate flow by PPG waveforms.Left Impression1. The common femoral, profunda femoral, superficial femoral and poplitealarteries are patent with normal triphasic Doppler waveforms.2. The posterior tibial, peroneal and anterior tibial arteries are patentwith mostly monophasic Doppler waveforms.3. There is >50% stenosis in the distal anterior tibial artery.4. The arteries are heavily calcified throughout.5. Collateral flow is visualized throughout.6. The PT pressure is 234 mmHg with an EUGENE of 1.43 and the DP pressure is226 mmHg with an EUGENE of 1.38, within non-compressible artery range.7. The great toe pressure and TBI are not obtained due to amputated greattoe.8. The 2nd and 5th digits have adequate flow; the 3rd and 4th digits havedecreased flow by PPG waveforms. Conclusions Summary Arterial pressures and Doppler analysis were performed on the left lowe r extremity. Adequate Doppler waveforms were obtained. The common femoral, profu nda femoral, superficial femoral and popliteal arteries were patent with normal triphasic Doppler waveforms. The posterior tibial, peroneal and anterior tibial arteries were patent with mostly monophasic Doppler waveforms. There was >50% stenosis in the distal anterior tibial artery. The arteries were heavily christopher cified throughout. Collateral flow was visualized throughout. The PT and DP EUGENE' s were within non-compressible artery range. The great toe pressure and TBI were not obtained due to amputated great toe. The 2nd and 5th digits had adequate fl ow; the 3rd and 4th digits had decreased flow by PPG waveforms. For comparison o n the right, The PT and DP EUGENE's were within non-compressible artery range. The great toe pressure and TBI were abnormal; the digits had adequate flow by PPG wa veforms. Signature ----- Electronically signed by Nicole Christianson MD(Interpreting physician) on 10:24 AM -- Velocities are measured in cm/s ; Diameters are measured in cm LE Duplex Erin urements Right Left + + + +--------- ---------+ + + + +---- + !Location ! !PSV !EDV !Waveform ! !PSV !EDV !Waveform ! + + + + + + + + + ---------+ !Mid Common Femoral ! !181 ! ! ! + + + + + + !Prox PFA ! !112 ! ! ! + + + + + + !Prox SFA ! !194 ! ! ! + ---------+ +--- + + + !Mid SFA ! !204 ! ! ! + + + ------+ + + !Dist SFA ! !153 ! ! ! + + + +--- + + !Prox Popliteal ! !108 ! ! ! +--- + + + -----+ + !Dist Popliteal ! !109 ! ! ! + + + + +---- + !Prox MORTGAGE BROKER ! !65.2 ! ! ! + + + + + ---------+ !Mid MORTGAGE BROKER ! !67.6 ! ! ! + + + + + + !Dist MORTGAGE BROKER ! !80.1 ! ! ! + + + + + + !Prox ERASMO ! !134 ! ! ! + ---------+ +--- + + + !Mid ERASMO ! !113 ! ! ! + + + ------+ + + !Dist ERASMO ! !344 ! ! ! + + + +--- + + !Prox Peroneal ! !115 ! ! ! +--- + + + -----+ + !Mid Peroneal ! !147 ! ! ! + + + + +---- + !Dist Peroneal ! !87.2 ! ! ! + + + + + ---------+ Interface, External Ris In - 01/17/2019 10:25 AM [facility] - Lower Ex tremity Arterial Duplex Demographics Patient Name ADDI CARLSON Date of Study 01/17/2019 ALICE ABDUL Age 58 Visit Number [id number] Gender Male Accession Number [id number] Date of 1960 Referring Terrence Willett Room Number ED7 Physician MD Valerie Engineer Byproduct Reynaldo Broderick Interpreting Physician MARYCRUZ Parisi ProcedureType of Study: Extremities Arteries: Lower Extremities Arterial Duplex, ARTERIAL D OPPLER LEG, LEFT. Indications for Study:Wound check .Patient Status:STAT.Study L ocation:Portable.Technical Quality:Adequate visualization.Risk FactorsHistory of Disease+ +----+ ---+!Diagnosis !Date!Comments ! + +----+ +!His tory/Risk Factors:! !HTN, HLD, ESRD, Left Arm AV Fistula, PVD, DM !+------- +----+ +ImpressionsR ight ImpressionFOR COMPARISON1. The posterior tibial and dorsalis pedis arteries are patent withbiphasic/ triphasic Doppler waveforms.2. The PT pressure is 231 mmHg with an EUGENE of 1.41 and the DP pressure is285 mmHg with an EUGENE of 1.7, with in non-compressible artery range.3. The great toe pressure is 88 mmHg with an ab normal TBI of 0.54.4. The digits have adequate flow by PPG waveforms.Left Impres sion1. The common femoral, profunda femoral, superficial femoral and poplitealar teries are patent with normal triphasic Doppler waveforms.2. The posterior tibia l, peroneal and anterior tibial arteries are patentwith mostly monophasic Dopple r waveforms.3. There is >50% stenosis in the distal anterior tibial artery.4. The arteries are heavily calcified throughout.5. Collateral flow is visualized throughout.6. The PT pressure is 234 mmHg with an EUGENE of 1.43 and the DP pressure is226 mmHg with an EUGENE of 1.38, within non-compressible artery range.7. The great toe pressure and TBI are not obtained due to amputated greattoe.8. The 2nd and 5th digits have adequate flow; the 3rd and 4th digits havedecreased flow by PPG waveforms. Conclusions Summary Arterial [...] in cm/s ; Diameters are measured in cmLE Duplex Measurements Right Left + + + + -------+ + + + +------ + !Location ! !PSV !EDV !Waveform ! !PSV !EDV !Waveform ! + + + + +-- + + + + -------+ !Mid Common Femoral ! !181 ! ! ! + + + + + + ! Prox PFA ! !112 ! ! ! + + + + + + !Prox SFA ! !194 ! ! ! + -------+ +----- + + + !Mid SFA ! !204 ! ! ! + + + ----+ + + !Dist SFA ! !153 ! ! ! + + + +----- + + !Prox Popliteal ! !108 ! ! ! +----- + + + ---+ + !Dist Popliteal ! ! 109 ! ! ! + + + + +------ + !Prox MORTGAGE BROKER ! !65.2 ! ! ! + + + + + -------+ !Mid MORTGAGE BROKER ! !67.6 ! ! ! + + + + + + ! Dist MORTGAGE BROKER ! !80.1 ! ! ! + + + + + + !Prox ERASMO ! !134 ! ! ! + -------+ +----- + + + !Mid ERASMO ! !113 ! ! ! + + + ----+ + + !Dist ERASMO ! !344 ! ! ! + + + +----- + + !Prox Peroneal ! !115 ! ! ! +----- + + + ---+ + !Mid Peroneal ! ! 147 ! ! ! + + + + +------ + !Dist Peroneal ! !87.2 ! ! ! + + + + + -------+ [id number] 10:22:00* Test Item Value Reference Range Interpretation Comments POC-GLUCOSE METER (BEAKER) (test code = 1538) 163 mg/dL 70-110 H : TESTED AT [address], [address]: [employer]/Molding Machine Operator ID = [id number] for ROOSEVELT BASHIR CBC W/PLT COUNT & AUTO [id number] 05:45:00* Test Item Value Reference Range Interpretation Comments WHITE BLOOD CELL COUNT (BEAKER) (test code = 775) 8.4 K/ L 3.5- 10.5 RED BLOOD CELL COUNT (BEAKER) (test code = 761) 2.26 M/ L 4.63-6 .08 L HEMOGLOBIN (BEAKER) (test code = 410) 6.9 GM/DL 13.7-17.5 L HEMATOCRIT (BEAKER) (test code = 411) 21.9 % 40.1-51.0 L MEAN CORPUSCULAR VOLUME (BEAKER) (test code = 753) 96.9 fL 79. 0-92.2 H MEAN CORPUSCULAR HEMOGLOBIN (BEAKER) (test code = 751) 30.5 pg 25.7-32.2 MEAN CORPUSCULAR HEMOGLOBIN CONC (BEAKER) (test code = 752) 31.5 GM/DL 32.3-36.5 L RED CELL DISTRIBUTION WIDTH (BEAKER) (test code = 412) 15.9 % 11.6-14.4 H PLATELET COUNT (BEAKER) (test code = 756) 176 K/CU MM 150-450 MEAN PLATELET VOLUME (BEAKER) (test code = 754) 9.3 fL 9.4-12 .4 L NUCLEATED RED BLOOD CELLS (BEAKER) (test code = 413) 0 /100 WBC 0 -0 NEUTROPHILS RELATIVE PERCENT (BEAKER) (test code = 429) 87 % LYMPHOCYTES RELATIVE PERCENT (BEAKER) (test code = 430) 7 % MONOCYTES RELATIVE PERCENT (BEAKER) (test code = 431) 5 % EOSINOPHILS RELATIVE PERCENT (BEAKER) (test code = 432) 1 % BASOPHILS RELATIVE PERCENT (BEAKER) (test code = 437) 0 % NEUTROPHILS ABSOLUTE COUNT (BEAKER) (test code = 670) 7.33 K/ L 1.78-5.38 H LYMPHOCYTES ABSOLUTE COUNT (BEAKER) (test code = 414) 0.55 K/ L 1.32-3.57 L MONOCYTES ABSOLUTE COUNT (BEAKER) (test code = 415) 0.41 K/ L 0. 30-0.82 EOSINOPHILS ABSOLUTE COUNT (BEAKER) (test code = 416) 0.09 K/ L 0.04-0.54 BASOPHILS ABSOLUTE COUNT (BEAKER) (test code = 417) 0.02 K/ L 0. 01-0.08 IMMATURE GRANULOCYTES-RELATIVE PERCENT (BEAKER) (test code = 2801) 1 % 0-1 BASIC METABOLIC [id number] 05:40:00* Test Item Value Reference Range Interpretation Comments SODIUM (BEAKER) (test code = 381) 136 meq/L 136-145 POTASSIUM (BEAKER) (test code = 379) 3.7 meq/L 3.5-5.1 CHLORIDE (BEAKER) (test code = 382) 98 meq/L 98-107 CO2 (BEAKER) (test code = 355) 30 meq/L 22-29 H BLOOD UREA NITROGEN (BEAKER) (test code = 354) 26 mg/dL 7-21 H CREATININE (BEAKER) (test code = 358) 6.46 mg/dL 0.57-1.25 H GLUCOSE RANDOM (BEAKER) (test code = 652) 132 mg/dL 70-105 H CALCIUM (BEAKER) (test code = 697) 9.1 mg/dL 8.4-10.2 EGFR (BEAKER) (test code = 1092) 9 mL/min/1.73 sq m ESTIMATED GFR IS NOT ACCURATE CREATININE CLEARANCE IN PREDICTING GLOMERULAR FILTRATION RATE. ESTIMATED GFR IS NOT APPLICABLE FOR DIALYSIS PATIENTS. [id number] 05:31:00* Test Item Value Reference Range Interpretation Comments PHOSPHORUS (BEAKER) (test code = 604) 3.4 mg/dL 2.3-4.7 NYSAVTCPP9348-82-03 05:31:00* Test Item Value Reference Range Interpretation Comments MAGNESIUM (BEAKER) (test code = 627) 2.1 mg/dL 1.6-2.6 POCT-GLUCOSE [id number] 05:27:00* Test Item Value Reference Range Interpretation Comments POC-GLUCOSE METER (BEAKER) (test code = 1538) 125 mg/dL 70-110 H : TESTED AT [address], [address]: Chainer/Molding Machine Operator ID = [id number] for DARRIAN GUNTER CALCIUM, BUDIWVY3981-17-43 05:16:00* Test Item Value Reference Range Interpretation Comments CALCIUM IONIZED (BEAKER) (test code = 698) 1.16 mmol/L 1.12-1.27 PH, BLOOD (BEAKER) (test code = 1810) 7.45 PT/[id number] 21:56:00* Test Item Value Reference Range Interpretation Comments PROTIME (BEAKER) (test code = 759) 14.9 seconds 11.9-14.2 H INR (BEAKER) (test code = 370) 1.2 <=5.9 PARTIAL THROMBOPLASTIN TIME (BEAKER) (test code = 760) 44.1 seconds 22.5-36.0 H Effective 07/27/2018: PT Reference Range ChangeNew: 11.9-14.2 Previous: 11.7-14. 7RECOMMENDED COUMADIN/WARFARIN INR THERAPY RANGESSTANDARD DOSE: 2.0-3.0 Include s: PROPHYLAXIS for venous thrombosis, systemic embolization; TREATMENT for venou s thrombosis and/or pulmonary embolus.HIGH RISK: Target INR is 2.5-3.5 for patie nts wiht mechanical heart valves.Comprehensive metabolic [id number] 21:48:00* Test Item Value Reference Range Interpretation Comments Protein, Total (test code = 2885-2) 7.0 6.0- 8.3 gm/dL Albumin (test code = 71675-0) 3.8 g/dL 3.5-5 Alkaline Phosphatase (test code = 6768-6) 74 U/L 40-150 Total Bilirubin (test code = 1974-2) 0.5 mg/dL 0.2-1.2 Sodium (test code = 2951-2) 138 meq/L 136-145 Potassium (test code = 2823-3) 3.9 meq/L 3.5-5.1 Chloride (test code = 5-0) 97 meq/L 98-107 L CO2 (test code = 2027-9) 32 meq/L 22-29 H BUN (test code = 3094-0) 23 mg/dL 7-21 H Creatinine (test code = 2160-0) 5.79 mg/dL 0.57-1.25 H Glucose (test code = 2345-7) 122 mg/dL 70-105 H Calcium (test code = 85456-8) 9.3 mg/dL 8.4-10.2 AST (test code = 1920-8) 13 U/L 5-34 ALT (test code = 1742-6) 11 U/L 6-55 EGFR (test code = 69927-0) 10 mL/min/1.73 sq m ESTIMATED GFR IS NOT ACCURATE CREATININE CLEARANCE IN PREDICTING GLOMERULAR FILTRATION RATE. ESTIMATED GFR IS NOT APPLICABLE FOR DIALYSIS PATIENTS. Lab Interpretation (test code = 86329-2) [facility] Upiejye4283-25-21 21:48:00* Test Item Value Reference Range Interpretation Comments CRP (test code = 676) 10.00 mg/dL 0-0.5 H Lab Interpretation (test code = 59917-4) [facility]normal [facility] Hospital[facility]PRE[facility]ENSIVE METABOLIC [id number] 21:48:00* Test Item Value Reference Range Interpretation Comments TOTAL PROTEIN (BEAKER) (test code = 770) 7.0 gm/dL 6.0-8.3 ALBUMIN (BEAKER) (test code = 1145) 3.8 g/dL 3.5-5.0 ALKALINE PHOSPHATASE (BEAKER) (test code = 346) 74 U/L 40-150 BILIRUBIN TOTAL (BEAKER) (test code = 377) 0.5 mg/dL 0.2-1.2 SODIUM (BEAKER) (test code = 381) 138 meq/L 136-145 POTASSIUM (BEAKER) (test code = 379) 3.9 meq/L 3.5-5.1 CHLORIDE (BEAKER) (test code = 382) 97 meq/L 98-107 L CO2 (BEAKER) (test code = 355) 32 meq/L 22-29 H BLOOD UREA NITROGEN (BEAKER) (test code = 354) 23 mg/dL 7-21 H CREATININE (BEAKER) (test code = 358) 5.79 mg/dL 0.57-1.25 H GLUCOSE RANDOM (BEAKER) (test code = 652) 122 mg/dL 70-105 H CALCIUM (BEAKER) (test code = 697) 9.3 mg/dL 8.4-10.2 AST (SGOT) (BEAKER) (test code = 353) 13 U/L 5-34 ALT (SGPT) (BEAKER) (test code = 347) 11 U/L 6-55 EGFR (BEAKER) (test code = 1092) 10 mL/min/1.73 sq m ESTIMATED GFR IS NOT ACCURATE CREATININE CLEARANCE IN PREDICTING GLOMERULAR FILTRATION RATE. ESTIMATED GFR IS NOT APPLICABLE FOR DIALYSIS PATIENTS. C-REACTIVE [id number] 21:48:00* Test Item Value Reference Range Interpretation Comments C-REACTIVE PROTEIN (BEAKER) (test code = 676) 10.00 mg/dL 0.00-0.5 0 H [id number] 21:47:00* Test Item Value Reference Range Interpretation Comments MAGNESIUM (BEAKER) (test code = 627) 2.1 mg/dL 1.6-2.6 CBC W/PLT COUNT & AUTO [id number] 21:31:00* Test Item Value Reference Range Interpretation Comments WHITE BLOOD CELL COUNT (BEAKER) (test code = 775) 9.8 K/ L 3.5- 10.5 RED BLOOD CELL COUNT (BEAKER) (test code = 761) 2.47 M/ L 4.63-6 .08 L HEMOGLOBIN (BEAKER) (test code = 410) 7.5 GM/DL 13.7-17.5 L HEMATOCRIT (BEAKER) (test code = 411) 23.4 % 40.1-51.0 L MEAN CORPUSCULAR VOLUME (BEAKER) (test code = 753) 94.7 fL 79. 0-92.2 H MEAN CORPUSCULAR HEMOGLOBIN (BEAKER) (test code = 751) 30.4 pg 25.7-32.2 MEAN CORPUSCULAR HEMOGLOBIN CONC (BEAKER) (test code = 752) 32.1 GM/DL 32.3-36.5 L RED CELL DISTRIBUTION WIDTH (BEAKER) (test code = 412) 15.7 % 11.6-14.4 H PLATELET COUNT (BEAKER) (test code = 756) 214 K/CU MM 150-450 MEAN PLATELET VOLUME (BEAKER) (test code = 754) 9.1 fL 9.4-12 .4 L NUCLEATED RED BLOOD CELLS (BEAKER) (test code = 413) 0 /100 WBC 0 -0 NEUTROPHILS RELATIVE PERCENT (BEAKER) (test code = 429) 86 % LYMPHOCYTES RELATIVE PERCENT (BEAKER) (test code = 430) 7 % MONOCYTES RELATIVE PERCENT (BEAKER) (test code = 431) 5 % EOSINOPHILS RELATIVE PERCENT (BEAKER) (test code = 432) 1 % BASOPHILS RELATIVE PERCENT (BEAKER) (test code = 437) 0 % NEUTROPHILS ABSOLUTE COUNT (BEAKER) (test code = 670) 8.45 K/ L 1.78-5.38 H LYMPHOCYTES ABSOLUTE COUNT (BEAKER) (test code = 414) 0.66 K/ L 1.32-3.57 L MONOCYTES ABSOLUTE COUNT (BEAKER) (test code = 415) 0.52 K/ L 0. 30-0.82 EOSINOPHILS ABSOLUTE COUNT (BEAKER) (test code = 416) 0.11 K/ L 0.04-0.54 BASOPHILS ABSOLUTE COUNT (BEAKER) (test code = 417) 0.02 K/ L 0. 01-0.08 IMMATURE GRANULOCYTES-RELATIVE PERCENT (BEAKER) (test code = 2801) 0 % 0-1 RAD, FOOT, MIN 3 VIEWS, [id number] 20:09:00Reason for exam:->WOUND CHECK FINAL REPORT CLINICAL HISTORY: WOUND CHECK TECHNIQUE: 3 v iews of the left foot COMPARISON: None IMPRESSION: Postsurgical changes of an am putation through the first metatarsal diaphysis. Postsurgical changes of the sec ond metatarsal. Severe degenerative changes of the third MTP joint. Diffuse soft tissue swelling about the foot, particularly the plantar surface adjacent to the calcaneus with suggestion of subcutaneous emphysema and lucency of the plantar surface of the calcaneus, possibly representing early osteomyelitis. Vascular c alcifications. Degenerative changes of the ankle. Erosive changes of the lateral aspect of the fourth metatarsal head, correlate clinically. Osteopenia. Signed: Carla Wan MDReport Verified Date/Time: 01/16/2019 20:09:18 Electro nically signed by: CARLA WAN MD on 01/16/2019 08:09 PM Blood Dzsdrfj4095-93-05 19:32:00* Test Item Value Reference Range Interpretation Comments Blood Culture (test code = 77486416) NO GROWTH AFTER 5 DAYS, FINAL REPORT [facility]FO[facility] LEFT HTPBKIGC3075-09-10 21:41:00 [place] [address] Patient Name: ADDI CARLSON JR MR #: [id number] : 12/1960 Age/Sex: 58/M Req #: [id number] Adm Physician: Ordered by: OCTAVIA ABRAMS MD Report #: [id number] Location: ER Room/Bed: Procedure: 0926-0 074 DX/FOOT LEFT COMPLETE Exam Date: 11/24/18 Exam T fermín: 2125 REPORT STATUS: Signed FOOT LEFT COMPLETE - 3 views HISTORY: Pain COMPARISON: None available. FINDINGS: Amputation of the fifth toe at the mid metatarsal level. Well-corticated defect in the distal fourth metatarsal. Old appearing fracture deformity and subluxation at the level of third metatarsophalangeal joint. No evidence of acute displaced fracture or dislocation. No definite evidence of erosion. Soft tissue swelling of the forefoot. Vascular calcifications. Small plantar calcaneal enthesophyte. IMPRESSION: Chronic changes of the left foot as described above. No definite evidence of acute displaced frac ture or dislocation. No definite evidence of osteomyelitis. Signed by: Dr Monique Veloz MD on 11/24/2018 9:46 PM Dictated By: DEEPA VELOZ MD E lectronically Signed By: DEEPA VELOZ MD on 11/24/182145 Transcribed By: DONNA SALGADO on 11/24/182145 COPY TO: OCTAVIA ABRAMS MD Creatine Kinase [id number] 20:09:00* Test Item Value Reference Range Interpretation Comments Creatine Kinase MB (test code = 73361-2) 3.10 0-5.0 [place] [id number] 20:09:00* Test Item Value Reference Range Interpretation Comments Troponin I (test code = QGW1426) 0.056 0-0.300 [facility] CenterCreatine Kinase [id number] 20:09:00* Test Item Value Reference Range Interpretation Comments Creatine Kinase MB (test code = 61959-7) 3.10 0-5.0 [place] [id number] 20:09:00* Test Item Value Reference Range Interpretation Comments Troponin I (test code = VQK3253) 0.056 0-0.300 [facility] CenterCHEST SINGLE (NOT PORTABLE)2018-11-24 20:05:00 [place] [address] Patient Name: ADDI CARLSON JR MR #: [id number] : 1960 Age/Sex: 58/M Req #: [id number] Adm Physician: Ordered by: ORESTES GONZALEZ NP Report #: [id number] Location: ER Room/Bed: Procedure: 0926-0 070 DX/CHEST SINGLE (NOT PORTABLE) Exam Date: 11/24/18 Exam Time: 1948 REPORT STATUS: S igned A single frontal view of the chest. HISTORY: Fever, nausea, diabe tic COMPARISON: Chest radiograph August 31, 2018 DISCUSSION: Portabl e technique, limits sensitivity of the exam. Tubes/Lines: None Jennifer ngs and pleura: Low lung volumes result in bibasilar vascular crowding, acce ntuation of the pulmonary interstitial markings, central pulmonary vasculature , and the cardiac silhouette. Allowing for these limitations, the findings ar e as follows: No evidence of a consolidative pneumonia or pulmonary alveolar edema. No definite pleural effusion or pneumothorax is identified. Heart and mediastinum: The cardiomediastinal silhouette appear(s) unremarkable. Bones and soft tissues: Appear unremarkable, given this limited exam. IMPRESSION: 1. Low lung volumes, likely accentuated by the phase of re spiration. 2. No consolidative pneumonia. Signed by: Dr. Chepe Caal D.O., M.M.M. on 11/24/2018 8:06 PM Dictated By: CHEPE Perez 05 Transcribed By: SHERYL GARCIA on 11/24/182005 COPY TO: ORESTES GONZALEZ NP Prothrombin [id number] 19:48:00* Test Item Value Reference Range Interpretation Comments Prothrombin Time (test code = 5902-2) 14.1 11.9-14.5 [facility] CenterProthromb Time International Ratio 2018-11-24 19:48:00* Test Item Value Reference Range Interpretation Comments Prothromb Time International Ratio (test code = 6301-6) 1.04 Oral Anticoagulant Therapy INR Values:1. Low Intensity Therapy 1.5 - 2.02 . Moderate Intensity Therapy 2.0 - 3.03. High Intensity Therapy(1) 2.5 - 3. 54. High Intensity Therapy(2) 3.0 - 4.05. Panic Value INR > 5.0 [facility] CenterActivated Partial Thromboplast Time 2018-11-24 19:48:00* Test Item Value Reference Range Interpretation Comments Activated Partial Thromboplast Time (test code = 66388-2) 40.5 23.8-35.5 H [facility] CenterProthrombin Dxft1992-27-49 19:48:00* Test Item Value Reference Range Interpretation Comments Prothrombin Time (test code = 5902-2) 14.1 11.9-14.5 [facility] CenterProthromb Time International Ratio 2018-11-24 19:48:00* Test Item Value Reference Range Interpretation Comments Prothromb Time International Ratio (test code = 6301-6) 1.04 Oral Anticoagulant Therapy INR Values:1. Low Intensity Therapy 1.5 - 2.02 . Moderate Intensity Therapy 2.0 - 3.03. High Intensity Therapy(1) 2.5 - 3. 54. High Intensity Therapy(2) 3.0 - 4.05. Panic Value INR > 5.0 [facility] CenterActivated Partial Thromboplast Time 2018-11-24 19:48:00* Test Item Value Reference Range Interpretation Comments Activated Partial Thromboplast Time (test code = 23423-5) 40.5 23.8-35.5 H [facility] Resourcesodium Hcjlr7785-14-39 19:47:00* Test Item Value Reference Range Interpretation Comments Sodium Level (test code = 2951-2) 133 136-145 L [facility] CenterPotassium Hhtmt7872-84-90 19:47:00* Test Item Value Reference Range Interpretation Comments Potassium Level (test code = 2823-3) 3.8 3.5-5.1 [facility] CenterChloride Takpb4409-27-52 19:47:00* Test Item Value Reference Range Interpretation Comments Chloride Level (test code = 2075-0) 93 98-107 L [facility] CenterCarbon Dioxide Isdrm8766-28-75 19:47:00* Test Item Value Reference Range Interpretation Comments Carbon Dioxide Level (test code = 2028-9) 28 22-29 [facility] CenterAnion Ykg4821-66-15 19:47:00* Test Item Value Reference Range Interpretation Comments Anion Gap (test code = 34427-3) 15.8 8-16 [facility] CenterBlood Urea Xclqkgst1346-88-83 19:47:00* Test Item Value Reference Range Interpretation Comments Blood Urea Nitrogen (test code = 3094-0) 44 7-26 H [facility] CenterCreatinine2019-09-26 19:47:00* Test Item Value Reference Range Interpretation Comments Creatinine (test code = 2160-0) 8.77 0.72-1.25 H [facility] CenterBUN/Creatinine Hjqht5686-99-08 19:47:00* Test Item Value Reference Range Interpretation Comments BUN/Creatinine Ratio (test code = 3097-3) 5 6-25 L [facility] CenterEstimat Glomerular Filtration Rate 2018-11-24 19:47:00* Test Item Value Reference Range Interpretation Comments Estimat Glomerular Filtration Rate (test code = 906967730) 6 >60 L Ranges were taken from the National Kidney Disease Education Program and the [facility] Kidney Foundation literature.Reference ranges:60 or greater: Hhcnga18-64 ( for 3 consecutive months): Chronic kidney disease 15 or less: Kidney failureCHI Usmd Hospital At ArlingtonGlucose Lwqew0839-89-20 19:47:00* Test Item Value Reference Range Interpretation Comments Glucose Level (test code = ECT1324) 142 74-118 H [facility] CenterCalcium Retwv6444-44-04 19:47:00* Test Item Value Reference Range Interpretation Comments Calcium Level (test code = 03469-5) 9.9 8.4-10.2 [facility] CenterLactic Acid Glaok4921-86-76 19:47:00* Test Item Value Reference Range Interpretation Comments Lactic Acid Level (test code = Lactic Acid Level) 8.1 4.5- 19.8 [facility] CenterTotal Eswnyeuqb7752-74-21 19:47:00* Test Item Value Reference Range Interpretation Comments Total Bilirubin (test code = 1975-2) 1.0 0.2-1.2 [facility] CenterAspartate Amino Transf (AST/SGOT) 2018-11-24 19:47:00* Test Item Value Reference Range Interpretation Comments Aspartate Amino Transf (AST/SGOT) (test code = Aspartate Amino Transf (AST/SGOT)) 15 5-34 [facility] CenterAlanine Aminotransferase (ALT/SGPT) 2018-11-24 19:47:00* Test Item Value Reference Range Interpretation Comments Alanine Aminotransferase (ALT/SGPT) (test code = 1742-6) 12 0-55 [facility] CenterTotal Ddbryfd1322-98-95 19:47:00* Test Item Value Reference Range Interpretation Comments Total Protein (test code = 2885-2) 6.6 6.5-8.1 [facility] CenterAlbumin2019-09-26 19:47:00* Test Item Value Reference Range Interpretation Comments Albumin (test code = 1751-7) 3.5 3.5-5.0 [facility] CenterGlobulin2019-09-26 19:47:00* Test Item Value Reference Range Interpretation Comments Globulin (test code = 94335-2) 3.1 2.3-3.5 [facility] CenterAlbumin/Globulin Dafwv6099-58-22 19:47:00 * Test Item Value Reference Range Interpretation Comments Albumin/Globulin Ratio (test code = 1759-0) 1.1 0.8-2.0 [facility] CenterAlkaline Xkhyqwmxcus0546-98-95 19:47:00* Test Item Value Reference Range Interpretation Comments Alkaline Phosphatase (test code = 6768-6) 68 40-150 [facility] CenterCreatine Cpeqat3741-44-13 19:47:00* Test Item Value Reference Range Interpretation Comments Creatine Kinase (test code = 2157-6) 189 30-200 [facility] Resourcesodium Bvmtp1462-03-10 19:47:00* Test Item Value Reference Range Interpretation Comments Sodium Level (test code = 2951-2) 133 136-145 L [facility] CenterPotassium Hoasg9554-52-61 19:47:00* Test Item Value Reference Range Interpretation Comments Potassium Level (test code = 2823-3) 3.8 3.5-5.1 [facility] CenterChloride Wbjtr6742-67-58 19:47:00* Test Item Value Reference Range Interpretation Comments Chloride Level (test code = 2075-0) 93 98-107 L [facility] CenterCarbon Dioxide Axaye6275-49-87 19:47:00* Test Item Value Reference Range Interpretation Comments Carbon Dioxide Level (test code = 2028-9) 28 22-29 [facility] CenterAnion Iei0141-47-30 19:47:00* Test Item Value Reference Range Interpretation Comments Anion Gap (test code = 71212-4) 15.8 8-16 [facility] CenterBlood Urea Ixoeuyrt8268-07-31 19:47:00* Test Item Value Reference Range Interpretation Comments Blood Urea Nitrogen (test code = 3094-0) 44 7-26 H [facility] CenterCreatinine2019-09-26 19:47:00* Test Item Value Reference Range Interpretation Comments Creatinine (test code = 2160-0) 8.77 0.72-1.25 H [facility] CenterBUN/Creatinine Zvolf7576-76-92 19:47:00* Test Item Value Reference Range Interpretation Comments BUN/Creatinine Ratio (test code = 3097-3) 5 6-25 L [facility] CenterEstimat Glomerular Filtration Rate 2018-11-24 19:47:00* Test Item Value Reference Range Interpretation Comments Estimat Glomerular Filtration Rate (test code = 067151749) 6 >60 L Ranges were taken from the National Kidney Disease Education Program and the [facility] Kid[facility] Foundation literature.Reference ranges:60 or greater: Kouija74-28 ( for 3 consecutive months): Chronic kidney disease 15 or less: Kidney failureLamb Healthcare CenterGlucose Byxqz7627-94-65 19:47:00* Test Item Value Reference Range Interpretation Comments Glucose Level (test code = RWL7381) 142 74-118 H [facility] CenterCalcium Momys9480-92-22 19:47:00* Test Item Value Reference Range Interpretation Comments Calcium Level (test code = 36017-2) 9.9 8.4-10.2 [facility] CenterLactic Acid Icycq0212-82-99 19:47:00* Test Item Value Reference Range Interpretation Comments Lactic Acid Level (test code = Lactic Acid Level) 8.1 4.5- 19.8 [facility] CenterTotal Hpirlcfgb6804-50-96 19:47:00* Test Item Value Reference Range Interpretation Comments Total Bilirubin (test code = 1975-2) 1.0 0.2-1.2 [facility] CenterAspartate Amino Transf (AST/SGOT) 2018-11-24 19:47:00* Test Item Value Reference Range Interpretation Comments Aspartate Amino Transf (AST/SGOT) (test code = Aspartate Amino Transf (AST/SGOT)) 15 5-34 [facility] CenterAlanine Aminotransferase (ALT/SGPT) 2018-11-24 19:47:00* Test Item Value Reference Range Interpretation Comments Alanine Aminotransferase (ALT/SGPT) (test code = 1742-6) 12 0-55 [facility] CenterTotal Iuircmy4623-88-48 19:47:00* Test Item Value Reference Range Interpretation Comments Total Protein (test code = 2885-2) 6.6 6.5-8.1 [facility] CenterAlbumin2019-09-26 19:47:00* Test Item Value Reference Range Interpretation Comments Albumin (test code = 1751-7) 3.5 3.5-5.0 [facility] CenterGlobulin2019-09-26 19:47:00* Test Item Value Reference Range Interpretation Comments Globulin (test code = 94493-4) 3.1 2.3-3.5 [facility] CenterAlbumin/Globulin Cyrpv8290-52-68 19:47:00 * Test Item Value Reference Range Interpretation Comments Albumin/Globulin Ratio (test code = 1759-0) 1.1 0.8-2.0 [facility] CenterAlkaline Ldiogsmbrtd7273-86-55 19:47:00* Test Item Value Reference Range Interpretation Comments Alkaline Phosphatase (test code = 6768-6) 68 40-150 [facility] CenterCreatine Zzlywl9625-40-46 19:47:00* Test Item Value Reference Range Interpretation Comments Creatine Kinase (test code = 2157-6) 189 30-200 [facility] CenterWhite Blood Vlizy9835-71-28 19:23:00* Test Item Value Reference Range Interpretation Comments White Blood Count (test code = 6690-2) 10.70 4.8-10.8 [facility] CenterRed Blood Nxrpu5742-02-11 19:23:00* Test Item Value Reference Range Interpretation Comments Red Blood Count (test code = 789-8) 2.30 4.3-5.7 L [facility] CenterHemoglobin2019-09-26 19:23:00* Test Item Value Reference Range Interpretation Comments Hemoglobin (test code = 30727-6) 7.6 14.0-18.0 L [facility] CenterHematocrit2019-09-26 19:23:00* Test Item Value Reference Range Interpretation Comments Hematocrit (test code = 4544-3) 21.6 38.2-49.6 L [facility] CenterMean Corpuscular Egrkqu1306-10-80 19:23:00* Test Item Value Reference Range Interpretation Comments Mean Corpuscular Volume (test code = 787-2) 93.9 81-99 [facility] CenterMean Corpuscular Ijeedxvutu2902-88-61 19:23:00* Test Item Value Reference Range Interpretation Comments Mean Corpuscular Hemoglobin (test code = 785-6) 33.0 28-32 H [facility] CenterMean Corpuscular Hemoglobin Concent 2018-11-24 19:23:00* Test Item Value Reference Range Interpretation Comments Mean Corpuscular Hemoglobin Concent (test code = 786-4) 35.2 31-35 H [facility] CenterRed Cell Distribution Ethxh3918-94-92 19:23:00* Test Item Value Reference Range Interpretation Comments Red Cell Distribution Width (test code = 75043-6) 13.8 11.7 -14.4 [facility] CenterPlatelet Zmlds3292-43-49 19:23:00* Test Item Value Reference Range Interpretation Comments Platelet Count (test code = 777-3) 143 140-360 [facility] CenterNeutrophils (%) (Auto)2018-11-24 19:23:00 * Test Item Value Reference Range Interpretation Comments Neutrophils (%) (Auto) (test code = 35712-7) 86.1 38.7-80.0 H [facility] CenterLymphocytes (%) (Auto)2018-11-24 19:23:00 * Test Item Value Reference Range Interpretation Comments Lymphocytes (%) (Auto) (test code = 736-9) 6.3 18.0-39.1 L [facility] CenterMonocytes (%) (Auto)2018-11-24 19:23:00* Test Item Value Reference Range Interpretation Comments Monocytes (%) (Auto) (test code = 5905-5) 6.4 4.4-11.3 [facility] CenterEosinophils (%) (Auto)2018-11-24 19:23:00 * Test Item Value Reference Range Interpretation Comments Eosinophils (%) (Auto) (test code = 713-8) 0.5 0.0-6.0 [facility] CenterBasophils (%) (Auto)2018-11-24 19:23:00* Test Item Value Reference Range Interpretation Comments Basophils (%) (Auto) (test code = 706-2) 0.2 0.0-1.0 [facility] CenterIM GRANULOCYTES %2018-11-24 19:23:00* Test Item Value Reference Range Interpretation Comments IM GRANULOCYTES % (test code = IM GRANULOCYTES %) 0.5 0.0- 1.0 [facility] CenterNeutrophils # (Auto)2018-11-24 19:23:00* Test Item Value Reference Range Interpretation Comments Neutrophils # (Auto) (test code = 751-8) 9.2 2.1-6.9 H [facility] CenterLymphocytes # (Auto)2018-11-24 19:23:00* Test Item Value Reference Range Interpretation Comments Lymphocytes # (Auto) (test code = 79957-1) 0.7 1.0-3.2 L [facility] CenterMonocytes # (Auto)2018-11-24 19:23:00* Test Item Value Reference Range Interpretation Comments Monocytes # (Auto) (test code = 742-7) 0.7 0.2-0.8 [facility] (Auto)2018-11-24 19:23:00* Test Item Value Reference Range Interpretation Comments Eosinophils # (Auto) (test code = 711-2) 0.1 0.0-0.4 [facility]ophils # (Auto)2018-11-24 19:23:00* Test Item Value Reference Range Interpretation Comments Basophils # (Auto) (test code = 704-7) 0.0 0.0-0.1 [facility] CenterAbsolute Immature Granulocyte (auto 2018-11-24 19:23:00* Test Item Value Reference Range Interpretation Comments Absolute Immature Granulocyte (auto (harry t code = Absolute Immature Granulocyte (auto) 0.05 0-0.1 [facility] CenterWhite Blood Ocsmx8351-62-50 19:23:00* Test Item Value Reference Range Interpretation Comments White Blood Count (test code = 6690-2) 10.70 4.8-10.8 [facility] CenterRed Blood Izklt3818-14-47 19:23:00* Test Item Value Reference Range Interpretation Comments Red Blood Count (test code = 789-8) 2.30 4.3-5.7 L [facility] CenterHemoglobin2019-09-26 19:23:00* Test Item Value Reference Range Interpretation Comments Hemoglobin (test code = 29000-5) 7.6 14.0-18.0 L [facility] CenterHematocrit2019-09-26 19:23:00* Test Item Value Reference Range Interpretation Comments Hematocrit (test code = 4544-3) 21.6 38.2-49.6 L [facility] CenterMean Corpuscular Daoxvv6169-19-73 19:23:00* Test Item Value Reference Range Interpretation Comments Mean Corpuscular Volume (test code = 787-2) 93.9 81-99 [facility] CenterMean Corpuscular Upydgyrvai4216-33-98 19:23:00* Test Item Value Reference Range Interpretation Comments Mean Corpuscular Hemoglobin (test code = 785-6) 33.0 28-32 H [facility] CenterMean Corpuscular Hemoglobin Concent 2018-11-24 19:23:00* Test Item Value Reference Range Interpretation Comments Mean Corpuscular Hemoglobin Concent (test code = 786-4) 35.2 31-35 H [facility] CenterRed Cell Distribution Iulei6945-30-67 19:23:00* Test Item Value Reference Range Interpretation Comments Red Cell Distribution Width (test code = 96593-5) 13.8 11.7 -14.4 [facility] CenterPlatelet Rhlgx8616-34-45 19:23:00* Test Item Value Reference Range Interpretation Comments Platelet Count (test code = 777-3) 143 140-360 [facility] CenterNeutrophils (%) (Auto)2018-11-24 19:23:00 * Test Item Value Reference Range Interpretation Comments Neutrophils (%) (Auto) (test code = 10985-3) 86.1 38.7-80.0 H [facility] CenterLymphocytes (%) (Auto)2018-11-24 19:23:00 * Test Item Value Reference Range Interpretation Comments Lymphocytes (%) (Auto) (test code = 736-9) 6.3 18.0-39.1 L [facility] CenterMonocytes (%) (Auto)2018-11-24 19:23:00* Test Item Value Reference Range Interpretation Comments Monocytes (%) (Auto) (test code = 5905-5) 6.4 4.4-11.3 [facility] CenterEosinophils (%) (Auto)2018-11-24 19:23:00 * Test Item Value Reference Range Interpretation Comments Eosinophils (%) (Auto) (test code = 713-8) 0.5 0.0-6.0 [facility] CenterBasophils (%) (Auto)2018-11-24 19:23:00* Test Item Value Reference Range Interpretation Comments Basophils (%) (Auto) (test code = 706-2) 0.2 0.0-1.0 [facility] CenterIM GRANULOCYTES %2018-11-24 19:23:00* Test Item Value Reference Range Interpretation Comments IM GRANULOCYTES % (test code = IM GRANULOCYTES %) 0.5 0.0- 1.0 [facility] CenterNeutrophils # (Auto)2018-11-24 19:23:00* Test Item Value Reference Range Interpretation Comments Neutrophils # (Auto) (test code = 751-8) 9.2 2.1-6.9 H [facility] CenterLymphocytes # (Auto)2018-11-24 19:23:00* Test Item Value Reference Range Interpretation Comments Lymphocytes # (Auto) (test code = 31289-6) 0.7 1.0-3.2 L [facility] CenterMonocytes # (Auto)2018-11-24 19:23:00* Test Item Value Reference Range Interpretation Comments Monocytes # (Auto) (test code = 742-7) 0.7 0.2-0.8 [facility] CenterEosinophils # (Auto)2018-11-24 19:23:00* Test Item Value Reference Range Interpretation Comments Eosinophils # (Auto) (test code = 711-2) 0.1 0.0-0.4 [facility] CenterBasophils # (Auto)2018-11-24 19:23:00* Test Item Value Reference Range Interpretation Comments Basophils # (Auto) (test code = 704-7) 0.0 0.0-0.1 [facility] CenterAbsolute Immature Granulocyte (auto 2018-11-24 19:23:00* Test Item Value Reference Range Interpretation Comments Absolute Immature Granulocyte (auto (harry t code = Absolute Immature Granulocyte (auto) 0.05 0-0.1 [facility] Xcbtfsa8719-89-62 19:07:00* Test Item Value Reference Range Interpretation Comments Bedside Glucose (test code = 86750-5) 153 70-120 H Meter ID: [id number] Glucose 2018-11-24 19:07:00* Test Item Value Reference Range Interpretation Comments Bedside Glucose (test code = 43446-7) 153 70-120 H Meter ID: [id number] [facility] 2018-03-03 15:32:00 [facility] [address] [place], [place] [address] Patient Name: ADDI CARLSON JR MR #: [id number] : 1960 Age/Sex: 57/M Req #: [id number] Adm Physician: Ordered by: OLGA CRANE MD Report #: [id number] Location: [facility] Room/Bed: Procedure: 010 48 DX/CHEST 2 VIEWS Exam Date: 03/03/18 Exam Time: 1 410 REPORT STATUS: Signed EXAMIN ATION: CHEST 2 VIEWS INDICATION: [id number] COUGH COMPARISON: None FINDINGS: PA and lateral views TUBES and LI SKYLER: None. LUNGS: Lungs are well inflated. Mild retrocardiac opacities. PLEURA: No pleural effusion or pneumothorax. HEART AND MEDIASTI NUM: The cardiomediastinal silhouette is unremarkable. BONES AND SOFT TISSUES: No acute osseous lesion. Soft tissues are unremarkable. UPPER ABDOMEN: No free air under the diaphragm. IMPRESSION: Mild retrocard iac opacities, concerning for developing pneumonia. Signed by: Dr. Deepa Veloz MD on 03/03/2018 3:33 PM Dictated By: DEEPA Degroot aditi Signed By: DEEPA VELOZ MD on 03/03/18 1533 Transcribed By: HEAVEN on 0 03/03/18 1533 COPY TO: OLGA CRANE MD CT ABDOMEN/PELVIS WO 2017-12-14 15:03:00 [facility] [address] [place] [address] Patient Name: ADDI CARLSON JR MR #: [id number] : 1960 Age/Sex: 57/M Req #: [id number] Adm Physician: Ordered by: ANDI JAIN MD Report #: [id number] Location: CT Room/Bed: Procedure: 1016-[address]/CT ABDOMEN/PELVIS WO Exam Date: Exam Time: REPORT STATUS: Signed EXAM: CT Abd omen and Pelvis WITHOUT contrast INDICATION: Left lower quadrant / flank laura n COMPARISON: None. TECHNIQUE: Abdomen and pelvis were scanned utilizing a m Editlitetector helical scanner from the lung base to the pubic symphysis without administration of IV contrast. Absence of intravenous contrast decreases sens itivity for detection of focal lesions and vascular pathology. Coronal and sag ittal reformations were obtained. Routine protocol was performed. IV CONTRAST: None. ORAL CONTRAST: Water RADIATION DOSE: Total DLP: 821mGy*cm Estimated effective dose: (DLP x 0.015 x size factor) mSv COMPLICATIONS: None FINDINGS: LINES and TUBES: None. LOWER THORAX: Extensive coronary calcifications. Mitral moises ular calcifications. Lung bases are clear. HEPATOBILIARY: No focal hepat ic lesions. There is cholelithiasis with a stone in the distal cystic duct wit hout evidence of cholecystitis. SPLEEN: No splenomegaly. There is a 2.6 c m cyst (19 HU) in the spleen with associated punctate calcification. PRECIADO CREAS: No focal masses or ductal dilatation. ADRENALS: No adrenal nodules KIDNEYS/URETERS: No hydronephrosis. Numerous punctate 1-2 mm bilateral renal calcifications are likely vascular calcifications rather than stones. At rophic bilateral kidneys. Subcentimeter hypodensity in the right kidney, too s mall to characterize, but likely representing a cyst. GI TRACT: No evide nce of diverticulitis. Prominent mid small bowel loops measuring up to 3 cm wi thout associated wall thickening, proximal dilatation, inflammatory changes, o r decompression of the colon to suggest obstruction. Colon is filled with stoo l. Appendix is normal. PELVIC ORGANS/BLADDER: The bladder is decompressed and mildly thick walled. LYMPH NODES: No lymphadenopathy. VESSELS: At herosclerotic calcifications of the abdominal aorta and branch vessels. P ERITONEUM / RETROPERITONEUM: No free air or fluid. BONES AND SOFT TISSUES: No acute bony findings. Degenerative changes of the visualized spine. IM PRESSION: No evidence of diverticulitis or urinary stone. Mildly thick walled bladder which could represent cystitis in the appropriate clinical cont ext. Cholelithiasis with stone in the distal cystic duct without CT eviden ce of cholecystitis. Extensive coronary atherosclerosis. Signed by : Dr. Jarad Mccarty MD on 12/14/2017 4:52 PM Dictated By: JARAD MCCARTY MD El ectronically Signed By: JARAD MCCARTY MD on 12/14/171651 Transcribed By: HEAVEN on 12/14/171651 COPY TO: ANDI JAIN MD HIP RIGHT 2-3 VW (+/- PELVIS) [place] [address] Patient Name: ADDI CARLSON JR MR #: [id number] : 1960 Age/Sex: 56/M Req #: [id number] Adm Physician: Ordered by: ANDI JAIN MD Report #: [id number] Location: [facility] Room/Bed: Procedure: [id number] DX/HIP RIGHT 2-3 VW (+/- PELVIS) Exam Date: Exam Time: REPORT STATUS: Signed Right hip 2 - views HISTORY: Pain. Arthritis. COMPARISON: None FINDINGS: No displaced fracture. Osseous alignment is with in normal limits. Mild degenerative changes of the right hip joint. Extensiv e vascular calcifications. IMPRESSION: Mild degenerative osteoarthrosis. Signed by: Dr. Conrad Pierre M.D. on 03/25/2017 4:07 PM Dict ated By: NEREIDA PIERRE MD, MD 1604 Transcribed By: HEAVEN on 03/25/17 160 COPY TO: ANDI FERNANDES MD
--- OUTSIDE RECORDS SUMMARY | 2019-10-12 20:18 | XMS REPORT | Summary of Care ---
Author Author [facility] Organization [facility] Address Unknown Phone Unavailable Care Team Providers Care Senior Accounting Specialist Name Role Phone System, Pcp Not In PCP Reason for Referral * Radiology Services (Routine) Referred By Contact Referred To Contact Status Reason Specialty Diagnoses / Procedures Roland Wilson MD [address] [place] [address] [address] [place] [address] [facility] [address] [place] [address] [address] [place] [address] Pending Radiology Diagnoses PAD (peripheral artery disease) (HCCode) P rocedures US ARTERIAL LEG LEFT Reason for Visit * Reason Comments Post-op Follow-up left leg Encounter Details Care Team Description Date Type Department Roland Wilson MD [address] [place] [address] [address] [place] [address] Post-op Follow-up (left leg) 04/24/2019 Office Visit [facility] Vascular Surgery [address] [facility] [facility] 6th [address], [address] [place] [address] Allergies No Known Allergiesdocumented as of this encounter (statuses as of 04/28/2019) Medications End Date Status Medication Sig Dispensed [...] as of this encounter (statuses as of 04/28/2019) Active Problems Problem Noted Date PAD (peripheral [...] as of this encounter (statuses as of 04/28/2019) Social History Date Tobacco Use Types Packs/Day [...] Signs Reading Time Taken Comments Vital Sign 124/59 04/24/2019 1:19 PM SUSTAINABLE SYSTEMS ANALYST Blood Pressure 71 04/24/2019 1:19 PM SUSTAINABLE SYSTEMS ANALYST Pulse - - Temperature - - Respiratory Rate - - Oxygen Saturation - - Inhaled Oxygen Concentration 93.9 kg (207 lb) 04/24/2019 1:19 PM SUSTAINABLE SYSTEMS ANALYST Weight 185.4 cm (6' 1") 04/24/2019 1:19 PM SUSTAINABLE SYSTEMS ANALYST Height 27.31 04/24/2019 1:19 PM SUSTAINABLE SYSTEMS ANALYST Body Mass Index documented in this encounter Patient Instructions * Patient Instructions* Genna Couch MA - 04/24/2019 1:44 PM SUSTAINABLE SYSTEMS ANALYST Thank you for choosing [facility]. You may receive a survey in the mail. Please provide comments to let us know how we can improve our patient care. Instructions for your care: Patient to follow up in 3 months with left A26 patient will follow up in [address] Kj Chaudhary MD assembler seat Division of Vascular Surgery and Endovascular Therapy If you have any questions, please feel free to call us at: Your Body mass index is 27.31 kg/m. Body mass index (BMI) can help you see if your weight is raising your risk for h ealth problems. It uses a formula to compare how much you weigh with how tall yo u are. A BMI between 18.5 and 24.9 is considered healthy. A BMI between 25 and 2 9.9 is considered overweight. A BMI of 30 or higher is considered obese. If your BMI is in the normal range, it means that you have a lower risk for weig ht-related health problems. If your BMI is in the overweight or obese range, you may be at increased risk for weight-related health problems, such as high blood pressure, heart disease, stroke, arthritis or joint pain, and diabetes. BMI is just one measure of your risk for weight-related health problems. You may be at higher risk for health problems if you are not active, you eat an unhealt hy diet, or you drink too much alcohol or use tobacco products. Follow-up care is a perez part of your treatment and safety. Be sure to make and g o to all appointments, and call your doctor if you are having problems. It's als o a good idea to know your test results and keep a list of the medicines you brent e. How can you care for yourself at home? Practice healthy eating habits. This includes eating plenty of fruits, vegeta bles, whole grains, lean protein, and low-fat dairy. Get at least 30 minutes of exercise 5 days a week or more. Brisk walking is a good choice. You also may want to do other activities, such as running, swimmin g, cycling, or playing tennis or team sports. Do not smoke. Smoking can increase your risk for health problems. If you need help quitting, talk to your doctor about stop-smoking programs and medicines. T hese can increase your chances of quitting for good. Limit alcohol Where can you learn more? Go to www.Ele[employer].is.[facility]st. [facility] centerUniversity [facility] [place].[facility] [place] Go to the Search tab with the magnifying glass on the right side of [employer] home page. Enter S176 in the search box to learn more about "Body Mass Index: Care Instruct ions." AINABLE SYSTEMS ANALYST documented in this encounter Progress Notes * Vadim Ball - 04/24/2019 1:30 PM SUSTAINABLE SYSTEMS ANALYST [facility] V[facility] Clinic [address] [facility] [address], [place]. [address] Office: [phone] DATE OF VISIT: April 24, 2019 PATIENT NAME: Addi Carlson : 1960 PCP / REFERRING PHYSICIAN: System, Pcp Not In / No address on file The patient presents today for a Vascular Surgery Established Patient Visit. The patient is status post left leg angiogram and stenting procedure which was perf ormed on April 07 at the [facility] ng [facility]. The patient's leg wound has waxed and waned but are better overall. The patient is not having any pain. The patient denies fever, wound drainage, incre asing redness, pus, increasing pain, increasing swelling. The patient's wound is is healing well with good granulation tissue. Post op problems reported: none. Physical examination revealed clean groin punctured cite which is healing well without signs of infection or hematoma. He has been able to ambulate without dif ficulty. The patient does have a wound to his left heel which he has been applyi ng a wet to dry Dakins dressing. VITAL SIGNS: BP 124/59 (BP Location: right arm, Patient Position: Sitting) | Pu lse 71 | Ht 6' 1" (1.854 m) | Wt 207 lb (93.9 kg) | BMI 27.31 kg/m PHYSICAL EXAM: Constitutional: Well nourished, no signs of distress Cardiovascular: Normal rate, regular rhythm and normal heart sounds. No murmurs , rubs or gallops Pulmonary/Chest: Breath sounds normal. No respiratory distress. No adventitious sounds. Abdominal: Soft. No abdominal distension or tenderness. No masses palpated and n o hepatomegaly. No organomegaly. No abdominal pulsatile mass noted. Musculoskeletal: Normal range of motion. No evidence of arthritis. Extremities: No edema, cyanosis or clubbing. Neurological: He is alert and oriented. No muscle weakness and normal gait. VASCULAR: Palpable femoral pulses were present bilaterally with Dopplerable pop liteal, dorsalis pedis and posterior tibial artery signals. Groin punctured site is healing well without signs of infection. Vascular Ultrasound Study performed on April 24, 2019: Assessment & Plan: Peripheral arterial disease with status post lower leg angiogram with stenting - Clinical improvement of wound healing is noted. Recommend daily exercise regim en with 30 minutes of aerobic activity (i.e., walking or bicycling) to improve l ower leg arterial circulation. Return to vascular clinic in 3 month(s) with foll ow-up arterial duplex ultrasound of left lower extremity with ABIs. Patient was also instructed to continue wet to dry dakins dressings. JAC Olivares Department of Surgery Division of Vascular Surgery AINABLE SYSTEMS ANALYST documented in this encounter Plan of Treatment Care Team Description Date Type Specialty Kj Hammond DPM [address] [place] [address] 05/11/2019 Office Visit Vascular Surgery 07/25/2019 Ancillary Vascular Surgery Procedure Order Schedule Name Type Priority Associated Diag noses 1 Occurrences starting 04/24/2019 until 11/23/2019 US ARTERIAL LEG LEFT Imaging Routine PAD [...] Unspecified disorders of arteries and a rterioles Non-healing wound of left heel Increased BMI (body mass index) documented in this encounter Insurance Type Payer Benefit Subscriber ID Effective Phone Address Plan / Dates Group Medicare MEDICARE MEDICARE xxxxxxxxxxx 2018- [address] Present [id number] [place] [address] Medicaid MEDICAID [employer] xxxxxxxxx 2019- [address] - Present [id number] [place] [address] [phone] [id number] (Home) [place] [address] documented as of this encounter
--- OUTSIDE RECORDS SUMMARY | 2019-10-12 20:19 | XMS REPORT | Summary of Care ---
Author Author [facility] Organization [facility] Address Unknown Phone Unavailable Care Team Providers Care Slack Line Yarder Name Role Phone System, Pcp Not In PCP Reason for Visit * Reason Comments Cardiology Initial Visit Encounter Details Care Team Description Date Type Department Jose Alejandro Ibarra MD [address] [place] [address] Cardiology Initial Visit 09/19/2019 Office Visit [facility] Cardiology [address] [facility] 6th Floor, [address] [place] [address] Allergies No Known Allergiesdocumented as of this encounter (statuses as of 09/19/2019) Medications End Date Status Medication Sig Dispensed Refills Start Date Active carvedilol (COREG) 25 MG Take 25 mg by 0 tablet mouth 2 times daily (with meals). Active insulin regular (HUMULIN Inject into 0 [...] 0.25 % SOLN affected area 0 daily Active VELPHORO 500 MG CHEW Take 2 Tabs 0 by mouth 5 0 times daily. Active lisinopril (PRINIVIL, Take 1 Tab by 30 Tab 3 ZESTRIL) 10 MG tablet mouth daily. 0 Active atorvastatin (LIPITOR) 10 Take 1 Tab by 30 Tab 11 MG tablet mouth daily. 0 09/19/2019 Discontinued lisinopril (PRINIVIL, Take 40 mg by 0 ZESTRIL) 20 MG tablet mouth daily. 09/19/2019 Discontinued amlodipine (NORVASC) 5 MG Take 5 mg by 0 tabletIndications: Other mouth two and unspecified angina times daily. pectoris, Type II or unspecified type diabetes mellitus without mention of complication, not stated as uncontrolled, Chronic renal failure, stage 1, Essential hypertension, Type II or unspecified type diabetes mellitus with peripheral circulatory disorders, not stated as uncontrolled(250.70) 09/19/2019 Discontinued hydrALAZINE (APRESOLINE) Take 100 mg 0 100 MG tabletIndications: by mouth 3 Other and unspecified times daily. angina pectoris, Type II or unspecified type diabetes mellitus without mention of complication, not stated as uncontrolled, Chronic renal failure, stage 1, Essential hypertension, Type II or unspecified type diabetes mellitus with peripheral circulatory disorders, not stated as uncontrolled(250.70) 09/19/2019 Discontinued (*Alternate the rapy) Sevelamer Carbonate Take 800 mg 0 (RENVELA) 800 MG by mouth 3 TABSIndications: Other times daily. and unspecified angina pectoris, Type II or unspecified type diabetes mellitus without mention of complication, not stated as uncontrolled, Chronic renal failure, stage 1, Essential hypertension, Type II or unspecified type diabetes mellitus with peripheral circulatory disorders, not stated as uncontrolled(250.70) documented as of this encounter (statuses as of 09/19/2019) Active Problems Problem Noted Date S/P split [...] as of this encounter (statuses as of 09/19/2019) Social History Date Tobacco Use Types Packs/Day Years Used Quit: 05/04/2010 Former Smoker Smokeless Tobacco: Never Used Drinks/Week oz/Week Comments Alcohol Use No Sex Assigned at Date Recorded Not on file Industry Job Start Date Occupation Not on file Not on file Not on file Travel End Travel History Travel Start No recent travel history available. Date Recorded COVID-19 Exposure Response 09/14/2019 12:59 PM CDT In the last month, have you been in contact with No / Unsure someone who was confirmed or suspected to have Coronavirus / COVID-19? documented as of this encounter Last Filed Vital Signs Reading Time Taken Comments Vital Sign 122/63 09/19/2019 1:12 PM CDT Blood Pressure 78 09/19/2019 1:12 PM CDT Pulse - - Temperature 16 09/19/2019 1:12 PM CDT Respiratory Rate 100% 09/19/2019 1:12 PM CDT Oxygen Saturation - - Inhaled Oxygen Concentration 83.9 kg (185 lb) 09/19/2019 1:12 PM CDT Weight 185.4 cm (6' 1") 09/19/2019 1:12 PM CDT Height 24.41 09/19/2019 1:12 PM CDT Body Mass Index documented in this encounter Patient Instructions * Patient Instructions* Jose Alejandro Ibarra MD - 09/19/2019 1:00 PM CDT 1. Start lisinopril 10 mg at lunch time. Hold if BP <120/80 2. Start atorvastatin 10 mg 3. Return to clinic in 1 month documented in this encounter Progress Notes * Jose Alejandro Ibarra MD - 09/19/2019 1:00 PM CDT Jose Alejandro Ibarra MD Department of Medicine Section of Cardiology [address] [address] Date: September 19, 2019 Patient Name: Addi Carlson Jr. Patient Date of : 1960 Chief Complaint: Chief Complaint Patient presents with Cardiology Initial Visit HISTORY History of Present Illness: Addi Carlson Jr. is a 59 y.o. male with a history of HTN, PAD and ESR D on dialysis who presents to [facility]. His BP has been labile at home. He is currently only taking coreg. His BP is well controlled after the morning dos e and increases the 170s at lunch time and does not decrease again until his warren jayshree dose. He stopped taking hydralazine (watery eyes), losartan (blurred vision ) and amlodipine (blurred vision). He was on lisinopril in the past and tolerate d this without side effect however it was stopped at some point. He has a prior autht pending for nifedipine. He denies chest pain or shortness of breath. Currently going to dialysis MW. We aring mask and social distancing. Has would on L foot and is following with vasc ular surgery. Current Medications: Current Outpatient Medications Medication Sig Dispense Refill atorvastatin (LIPITOR) 10 MG tablet Take 1 Tab by mouth daily. 30 Tab 11 carvedilol (COREG) 25 MG tablet Take 25 mg by mouth 2 times daily (with meal s). Dakins (SODIUM HYPOCHLORITE) 0.25 % SOLN Apply to affected area daily 500 mL 1 gabapentin (NEURONTIN) 100 MG capsule Take 100 mg by mouth 3 times daily. insulin regular (HUMULIN R) 100 Units/mL injection Inject into the skin 3 t imes daily (before meals). lisinopril (PRINIVIL, ZESTRIL) 10 MG tablet Take 1 Tab by mouth daily. 30 Ta b 3 Multiple Vitamin (MULTI VITAMIN DAILY OR) Take by mouth. Na Sulfate-K Sulfate-Mg Sulf (SUPREP BOWEL PREP KIT) 17.5-3.13-1.6 GM/177ML SOLN [SUPREP] Take as directed. 1 Bottle 0 VELPHORO 500 MG CHEW Take 2 Tabs by mouth 5 times daily. No current facility-administered medications for this visit. 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 Family History: Family History Problem Relation Name Age of Onset Hypertension Mother Diabetes Father Stroke Father Breast Cancer Maternal Aunt Other Medical Problems Paternal Grandmother Kidney failure Review of Systems: A full 12-system review was performed and documented below. Denies any chest pain, dyspnea on exertion, edema, irregular heart beat, loss of consciousness, murmur, orthopnea, palpitations, paroxysmal nocturnal dyspnea, r apid heart rate or shortness of breath. All other systems reviewed and negative unless stated in HPI. +blurry vision EXAMINATION BP 122/63 | Pulse 78 | Resp 16 | Ht 6' 1" (1.854 m) | Wt 185 lb (83.9 kg) | SpO2 100% | BMI 24.41 kg/m General appearance alert, cooperative, no distress, appears stated age HEENT Normocephalic, without obvious abnormality, atraumatic Neck Supple, normal carotid upstroke, no carotid bruit and no JVD Lungs clear to auscultation bilaterally Chest wall no tenderness Heart regular rate and rhythm, S1, S2 normal 2/6 holosystolic murmur heard best at apex. Abdomen soft, non-tender. Bowel sounds normal Extremities extremities normal, no cyanosis or edema Pulses 2+ and symmetric MSK No joint pain or effusion Skin Skin color, texture, turgor normal. No rashes or lesions Neurologic Nonfocal DATA Laboratory Testin08/14/2019 (suggestion) Information displayed in this report will not trend or trigger aut omated decision support. Ref Range & Units Value TRIGLYCERIDES EXT mg/dL 54 CHOLESTEROL EXT mg/dL 132 HDL mg/dL 52 LDL Calculated mg/dL 69 Narrative Cardiology Studies: Echocardiogram: 1) Normal left ventricular chamber size. 2) All segments contract normally. 3) Moderate concentric LV hypertrophy. 4) Normal overall LV systolic function. 5) Estimated LVEF is >60%. 6) Insufficient tricuspid jet to calculate pulmonary pressure. 7) The RAP is estimated to be 6-10 mmHg. 8) There is no previous study for comparison. Cardiac Stress Testin IMPRESSION: 1. Normal cardiac study. 2. Appropriate pharmacologic stress. 3. Normal myocardial perfusion. 4. Normal resting LV function. No deterioration of function is noted with pharmacologic stress. 5. Normal extracardiac tracer distribution. 6. No previous [facility] study for comparison. IMPRESSION Addi Carlson Jr. is a 59 y.o. male with a history of: Patient Active Problem List Diagnosis Other and unspecified angina pectoris Type II or unspecified type diabetes mellitus without mention of complicatio n, not stated as uncontrolled Chronic renal failure Hypertension Type II or unspecified type diabetes mellitus with peripheral circulatory di sorders, not stated as uncontrolled(250.70) ESRD (end stage renal disease) on dialysis (HCCode) HLD (hyperlipidemia) Hyperparathyroidism (HCCode) Pre-transplant evaluation for ESRD (end stage renal disease) Type 2 diabetes mellitus with diabetic neuropathic arthropathy, with long-te rm current use of insulin (HCCode) Skin ulcer of left heel with fat layer exposed (HCCode) PAD (peripheral artery disease) (HCCode) Non-healing wound of left heel S/P split thickness skin graft SUMMARY AND PLAN 1. Hypertension -continue coreg 25 mg BID -add lisinopril 10 mg at lunch time, if BP is still elevated on this dose he reema l contact the clinic for further titration. -follow up in 1 month 2. PAD- LDL 69 -start atorvastatin 10 mg Return to clinic in 1 month for BP check There are no diagnoses linked to this encounter. Thank you for referring this patient for consultation and allowing me to partici marlena in his care. Please do not hesitate to call with any questions. Jose Alejandro Ibarra MD [facility] [employer] Clerker physician Section of Cardiology documented in this encounter Plan of Treatment Care Team Description Date Type Specialty Resource, Covid-19 Testing Site 09/25/2019 Clinical Pathology Support 09/26/2019 Ancillary Vascular Surgery Procedure Roland Wilson MD [address] [place] [address] [phone] 09/28/2019 Procedure visit Vascular Surgery Kj Hammond DPM [address] [place] [address] [phone] 09/28/2019 Office Visit Vascular Surgery 10/12/2019 Ancillary Vascular Surgery Procedure Roland Wilson MD [address] [place] [address] [phone] 10/16/2019 Office Visit Vascular Surgery Jose Alejandro Ibarra MD [address] [place] [address] [phone] 10/24/2019 Office Visit Cardiology 12/11/2019 Ancillary Vascular Surgery Procedure Roland Wilson MD [address] [place] [address] [phone] 12/11/2019 Office Visit Vascular Surgery Health Maintenance Due [...] filedocumented in this encounter Visit Diagnoses Diagnosis Essential hypertension - Primary Unspecified essential hypertension documented in this encounter Insurance Type Payer Benefit Subscriber ID Effective Phone Address Plan / Dates Group Medicare MEDICARE MEDICARE xxxxxxxxxxx 2018- [address] Present [id number] [place] [address] Medicaid MEDICAID TMHP-MEDIC xxxxxxxxx 2019-P [id number] [place] [address] [phone] (Home) [place], [place] [phone] documented as of this encounter
--- OUTSIDE RECORDS SUMMARY | 2019-10-12 20:19 | XMS REPORT | Summary of Care ---
Author Author [facility] Organization [facility] Address Unknown Phone Unavailable Care Team Providers Care [facility] Name Role Phone System, Pcp Not In PCP Reason for Referral * Consult, Test & Treat (Routine) Referred By Contact Referred To Contact Status Reason Specialty Diagnoses / Procedures Jose Alejandro Ibarra MD [address] [place] [address] Me Cc Heme-Onc [address] [facility] 7th [address], [address] [place] [address] Pending Consult, Test, and Hematology and Diagnoses Treat Oncology Anemia, unspecified type P rocedures SD OFFICE OUTPATIENT NEW 45 MINUTES Reason for Visit * Reason Comments Cardiology Follow-up Encounter Details Care Team Description Date Type Department Jose Alejandro Ibarra MD [address] [place] [address] [phone] Cardiology Follow-up 10/10/2019 Office Visit [facility] Cardiology [address] [facility] 6th [address], [address] [place] [address] Allergies No Known Allergiesdocumented as of this encounter (statuses as of 10/10/2019) Medications End Date Status Medication Sig Dispensed [...] by mouth 5 0 times daily. Active atorvastatin (LIPITOR) 10 Take 1 Tab by 30 Tab 11 MG tablet mouth daily. 0 10/10/2019 Discontinued lisinopril (PRINIVIL, Take 1 Tab by 30 Tab 3 ZESTRIL) 10 MG tablet mouth daily. 0 documented as of this encounter (statuses as of 10/10/2019) Active Problems Problem Noted Date S/P split thickness skin graft 08/29/2019 [facility] 04/28/2019 Non-healing wound of left heel 04/28/2019 [...] as of this encounter (statuses as of 10/10/2019) Social History Date Tobacco Use Types Packs/Day Years Used Quit: 05/04/2010 Former Smoker Smokeless Tobacco: Never Used Drinks/Week oz/Week Comments Alcohol Use No Sex Assigned at Date Recorded Not on file Date Recorded COVID-19 Exposure Response 09/14/2019 12:59 PM CDT In the last month, have you been in contact with No / Unsure someone who was confirmed or suspected to have Coronavirus / COVID-19? documented as of this encounter Last Filed Vital Signs Reading Time Taken Comments Vital Sign 121/68 10/10/2019 10:24 AM CDT Blood Pressure 66 10/10/2019 10:24 AM CDT Pulse - - Temperature 16 10/10/2019 10:24 AM CDT Respiratory Rate 100% 10/10/2019 10:24 AM CDT Oxygen Saturation - - Inhaled Oxygen Concentration 84.8 kg (187 lb) 10/10/2019 10:24 AM CDT per pt Weight 185.4 cm (6' 1") 10/10/2019 10:24 AM CDT Height 24.67 10/10/2019 10:24 AM CDT Body Mass Index documented in this encounter Patient Instructions * Patient Instructions* Jose Alejandro Ibarra MD - 10/10/2019 10:20 AM CDT 1. Coreg 12.5 mg twice, if BP starts to increase adjust dose to 25 mg 2. Referral to hematology 3. Return to clinic 3 months documented in this encounter Progress Notes * Jose Alejandro Ibarra MD - 10/10/2019 10:20 AM CDT Jose Alejandro Ibarra MD Department of Medicine Section of Cardiology [address] [place] [address] Date: October 10, 2019 Patient Name: Addi Carlson Jr. Patient Date of : 1960 Chief Complaint: Chief Complaint Patient presents with Cardiology Follow-up HISTORY History of Present Illness: Addi Carlson Jr. is a 59 y.o. male who presents for follow up on hype rtension. At last visit lisinopril 10 mg was added to his meds. After starting l isinopril he noticed blurry vision and hypotension. He was told to hold both his BP medications for symptomatic hypotension. He went to the ED on 10/05 and was fo und to have a hemoglobin of 5.4 which explains his hypotension. He was transfuse d with appropriate response. BP has been well controlled on coreg 12.5 mg BID. L ightheadedness has resolved. Requesting hematology referral. Current Medications: Current Outpatient Medications Medication Sig [...] skin 3 t imes daily (before meals). Multiple Vitamin (MULTI VITAMIN DAILY OR) Take [...] History Tobacco Use Smoking status: Former Smoker Quit date: 05/04/2010 Years since quittin.4 Smokeless tobacco: Never Used Substance Use Topics [...] reviewed and negative unless stated in HPI. EXAMINATION BP 121/68 | Pulse 66 | Resp 16 | Ht 6' 1" (1.854 m) | Wt 187 lb (84.8 kg) Co mment: per pt | SpO2 100% | BMI 24.67 kg/m General appearance alert, cooperative, no distress, appears stated age HEENT Normocephalic, without obvious abnormality, atraumatic Neck Supple, normal carotid upstroke, no carotid bruit and no JVD Lungs clear to auscultation bilaterally Heart regular rate and rhythm, S1, S2 normal, no murmur, click, rub or gallop. Abdomen soft, non-tender. Bowel sounds normal Extremities extremities normal, no cyanosis or edema Pulses 2+ and symmetric MSK No joint pain or effusion Skin Skin color, texture, turgor normal. No rashes or lesions Neurologic Nonfocal DATA Laboratory Testing: Results for orders placed or performed in visit on 09/25/19 NOVEL 2019 CORONAVIRUS(COVID-19),INES Specimen: Nasopharyngeal; Coronavirus Swab Result Value Ref Range SARS-COV-2 NEGATIVE Laboratory Testin08/14/2019 (suggestion) Information displayed in this [...] Normal extracardiac tracer distribution. 6. No previous [facility] study for comparison. IMPRESSION Addi Carlson Jr. [...] skin graft SUMMARY AND PLAN 1. Hypertension -decrease to coreg 12.5 mg BID, increase to 25 mg if BP elevates -d/c lisinopril -follow up in 3 months 2. PAD- LDL 69 -start atorvastatin 10 mg 3. Anemia -hematology referral Return to clinic in 3 months for BP check Diagnoses and all orders for this visit: Anemia, unspecified type - AMB REFERRAL TO H[facility]ATOLOGY ONCOLOGY [facility] Thank you for referring this patient for consultation and allowing me to partici mendiola in his care. Please do not hesitate to call with any questions. Jose Alejandro Ibarra MD [facility] [employer] Executivebumper straightener Section of Cardiology documented in this encounter Plan of Treatment Care Team Description Date Type Specialty 10/12/2019 Ancillary Vascular Surgery Procedure Roland Wilson MD [address] [place] [address] 10/16/2019 Office Visit Vascular Surgery 12/11/2019 Ancillary Vascular Surgery Procedure Roland Wilson MD [address] [place] [address] 12/11/2019 Office Visit Vascular Surgery Jose Alejandro Ibarra MD [address] [place] [address] [phone] 01/16/2020 Office Visit Cardiology Order Schedule Name Type Priority Associated Diag noses Ordered: 10/10/2019 AMB REFERRAL TO Outpatient Routine Anemia, unspec ified type HEMATOLOGY ONCOLOGY Referral [facility] [place] Due Date Last Done Comments TETANUS SHOT (ADULT) 1977 ANNUAL DIABETIC FOOT EXAM 1980 ANNUAL DIABETIC 1980 RETINOPATHY SCREENING MEDICARE AWV (Initial) 04/30/2011 ZOSTER VACCINE (1 of 2) 2012 FLU VACCINE > 6 MONTHS 09/30/2019 COLON CANCER SCREENIN05/31/2024 05/31/2014 COLONOSCOPY HEPATITIS C SCREENING Completed 02/03/2019 HIV SCREENING Completed 02/03/2019 documented as of this encounter Results Not on filedocumented in this encounter Visit Diagnoses Diagnosis Anemia, unspecified type - Primary documented in this encounter Insurance Type Payer Benefit Subscriber ID Effective Phone Address Plan / Dates Group Medicare MEDICARE MEDICARE [id number] 2018- [address] Present [id number] [place] [address] Medicaid MEDICAID TMHP-MEDIC [id number] 2019-P [id number] [place] [address] [phone] (Home) [place], [place] [phone] documented as of this encounter
--- NOTE | 2019-10-12 20:45 | Diagnostic Imaging Report ---
EXAMINATION: CHEST SINGLE (PORTABLE) INDICATION: Shortness of breath. COMPARISON: 11/24/2018. FINDINGS: TUBES and LINES: None. LUNGS: Patchy airspace opacity in the right lung base. The left lung is clear. PLEURA: No pleural effusion or pneumothorax. HEART AND MEDIASTINUM: The cardiomediastinal silhouette is unremarkable. BONES AND SOFT TISSUES: No acute osseous lesion. Soft tissues are unremarkable. UPPER ABDOMEN: No free air under the diaphragm. IMPRESSION: Patchy airspace opacity in the right lung base which may represent atelectasis and/or pneumonia in the proper clinical context. Signed by: Karthik Peralta MD on 10/12/2019 8:42 PM
[2019-10-12] MEDS ORDERED: PIPERACILLIN/TAZO 4.5 GM 100 ML IV STA (21:02)
[2019-10-12 21:32] LABS: INR 0.97; PROTHROMBIN TIME 13.4 seconds (11.9-14.5)
--- OUTSIDE RECORDS SUMMARY | 2019-10-12 21:39 | XMS REPORT | Continuity of Care Document ---
Author Author [facility] Organization [facility] Address Unknown Phone Unavailable Care Team Providers Care Business Analytics Manager Name Role Phone [employer] Information [employer] Unavailable Un available Problems Problem Status Onset Date Classification Date Reported Comments Source Abnormal Liver Function Test A ctive 03/25/2012 [facility] Type 2 Diabetes Mellitus Active 03/25/2012 [facility] End Stage Renal Disease Active 03/25/2012 on dialysis M-W-F [facility] Hypertension Active 03/25/2012 [facility] Otitis Externa Active 03/25/2012 [facility] Joint Pain, Localized In The Hip Active 03/25/2012 [facility] Medications Medication Details Route Status Patient Instructions Ordering Provider Order Date Source Ciprodex 0.3-0.1 % Otic Suspension ; Start Date: 03/25/2012; End Date: (Active) Active 03/25/2012 [facility] CloNIDine HCl 0.1 MG Oral Tablet ; Start Date: 10/30/2011 (Active) Active 10/30/2011 [facility] Precision Xtra Blood Glucose In Vitro Strip ; Start Date: 07/07/2011; End Date: (Active) Active 07/07/2011 [facility] Minoxidil 10 MG Oral Tablet ; Start Date: 07/07/2011; End Date: (Active) Active 07/07/2011 [facility] Carvedilol 25 MG Oral Tablet ; Start Date: 06/22/2011 (Active) Active 06/22/2011 [facility] Isosorbide Mononitrate ER 60 MG Oral Tab let Extended Release 24 Hour ; Start Date: 06/22/2011 (Active) Active 06/22/2011 [facility] Renagel 800 MG Oral Tablet ; S tart Date: 06/22/2011 (Active) Active 06/22/2011 [facility] Vitamin D (Ergocalciferol) 65167 UNIT Oral Capsule ; Start Date: 06/22/2011 (Active) Active 06/22/2011 [facility] Furosemide 40 MG Oral Tablet ; Start Date: 06/22/2011 (Active) Active 06/22/2011 [facility] Lisinopril 40 MG Oral Tablet ; Start Date: 06/22/2011 (Active) Active 06/22/2011 [facility] NovoLIN R 100 UNIT/ML Injection Solution ; Start Date: ; End Date: (Active) Inactive [facility] Doxazosin Mesylate 4 MG Oral Tablet (Active) Active [facility] TraMADol HCl 50 MG Oral Tablet (Active) Active [facility] Allergies, Adverse Reactions, Alerts Substance Category Reaction Severity Reaction type Status Date Reported Comments Source No Known Drug Allergies drug a llergy drug aller gy Active [facility] Immunizations No Data Provided for This [...] ADM Date DC Date Status Source AUDIT [id number] 01/13/2012 01/13/2012 [facility] AUDIT [id number] 02/21/2012 02/21/2012 [facility] AUDIT [id number] 03/25/2012 03/25/2012 [facility] Meaghan RAYMUNDO lina: IRINA BAEZ, Status: Pen, Time: 10:30 AM [id number] 04/01/2012 03/25/2012 [facility] Procedures No Data Provided for This Section Assessment and Plan No Data Provided for This Section Plan of Care Plan of Care Date Source [QLH] CBC (INCLUDES DIFF/PLT) 06/22/2011 Routine[L] TSH reflex to T4F 06/22/2011 Routine[QLH] CMP W/EGFR 06/22/2011 Routine[QLH] LIPID PANEL 06/22/2011 RoutineEndocrinology Referral 06/22/2011 RoutineCardiology Referral 06/22/2011 RoutineOphthalmology Referral 07/20/2011 Routine 03/25/2012 [facility] [QL] LIPID PANEL 06/22/2011 Routine[QLH ] CBC (INCLUDES DIFF/PLT) 06/22/2011 Routine[L] TSH reflex to T4F 06/22/2011 Routine[QLH] CMP W/EGFR 06/22/2011 RoutineOphthalmology Referral 07/20/2011 RoutineEndocrinology Referral 06/22/2011 RoutineCardiology Referral 06/22/2011 Routine 02/21/2012 [facility] [QL] CBC (INCLUDES DIFF/PLT) 06/22/2011 Routine[L] TSH reflex to T4F 06/22/2011 Routine[QLH] CMP W/EGFR 06/22/2011 Routine[QLH] LIPID PANEL 06/22/2011 RoutineEndocrinology Referral 06/22/2011 RoutineCardiology Referral 06/22/2011 RoutineOphthalmology Referral 07/20/2011 Routine 01/13/2012 [facility] Social History Social History Date Source No History of Alcohol Use Comments: stop ped about 6 months ago when started dialysis for ESRD (Denied) No History of Drug Use (Denied) Former Smoker (V15.82); (Active) 03/25/2012 [facility] Family History Value Date S ource Family history of Type 2 Diabetes [facility] (Active) Paternal history of Hypertension (V17.49); (Active) Maternal history of Breast Cancer (V16.3); (Active) 03/25/2012 [facility] Maternal history of Breast Cancer (V16.3 ); (Active) Paternal history of Hypertension (V17.49); (Active) Family history of Type 2 Diabetes Mellitus (Active) 02/21/2012 [facility] Family history of Type 2 Diabetes [facility] (Active) Paternal history of Hypertension (V17.49); (Active) Maternal history of Breast Cancer (V16.3); (Active) 01/13/2012 [facility] Advance Directives Order Name Results Value Date Source Advance Directives Advance Dir ectives No Advance Directives available. 03/25/2012 [facility] Advance Directives Advance Dir ectives No Advance Directives available. 02/21/2012 [facility] Advance Directives Advance Dir ectives No Advance Directives available. 01/13/2012 [facility] Functional Status No Data Provided for This Section
--- OUTSIDE RECORDS SUMMARY | 2019-10-12 21:39 | XMS REPORT | Clinical Summary ---
Author Author [facility] Address Unknown Phone Unavailable Care Team Providers Care Wound Care Technician Name Role Phone Jaskaran Gamboa MD PCP [...] daily for 90 days Takes as your lining feller blindstitch recommends. Active lisinopriL Take 1 tablet 0 (PRINIVIL,ZESTRIL) 10 MG (10 mg total) 0 tablet by mouth daily Take as directed by your lining feller blindstitch. 01/25/2019 Discontinued hydrALAZINE (APRESOLINE) Take 150 mg [...] Problems Patient Care Coordination Note Dr Garcia, Food [facility] Jackson, PCP Tel. #: [phone] Problem Noted Date ESRD (end stage renal disease) 10/06/2019 Subacute osteomyelitis of left ankle 08/14/2019 Heel ulcer 08/08/2019 Wound, open, foot 08/08/2019 Non healing left heel wound 08/08/2019 PAD (peripheral artery disease) 04/07/2019 Ulcer of heel, left, with unspecified severity 03/08 Hyperkalemia 02/20/2019 Symptomatic bradycardia 02/20/2019 Gastrointestinal hemorrhage, unspecified gastrointest inal hemorrhage type 02/20/2019 Overview: Added automatically from request for [facility] [id number] Type II or unspecified type diabetes mellitus [...] Assessment & Plan: Continue HD per his resort keeper's shelli ariase. Pre-transplant evaluation for chronic kidney [...] Margaret, MD ESRD (end stage renal disease) ([facility]) (Pr imary Dx); Generalized weakness; SOB (shortness of breath); Symptomatic anemia; Anemia due to chronic kidney disease, on chronic dialysis ([facility]); Type 2 diabetes mellitus with chronic kidney disease on chronic dialysis, with long-term current use of insulin ([facility]); Hyperlipidemia, unspecified hyperlipidemia type; Hypertension secondary to other renal disorders; PAD (peripheral artery disease) ([facility]) 10/06/2019 Emergency Cardiology - 10/07/2019 10/06/2019 Orders Only General Internal Ar dicine 10/06/2019 Travel Faraz Barbosa MD 08/08/2019 Anesthesia Event Kj Hammond DPM DEBRIDEMENT/I&D,WOUND EXTREMITY LOWER 08/08/2019 Surgery Kj Hammond DPM Jarrouge, Elie G., MD Heinen, Allison P., MD ESRD (end stage renal disease) on dialys is ([facility]); Non healing left heel wound; Type 2 diabetes mellitus with left diabetic foot infection ([facility]); Skin ulcer of left heel with necrosis of muscle ([facility]); Non-healing wound of left heel; Subacute osteomyelitis of left ankle ([facility]); Hyperparathyroidism ([facility]) 08/08/2019 [facility] General Internal Ar dicine - Encounter 08/14/2019 08/08/2019 Travel Kj [...] Encounter 04/08/2019 04/07/2019 Orders Only General Internal Ar dicine Raymondvioletta Irene LESLEE Bonner 03/13/2019 Anesthesia [...] Gastrointestinal hemorrhage, unspecified gastrointestinal hemorrhage type 02/20/2019 [facility] Internal Ar dicine - Encounter 02/23/2019 02/20/2019 Travel Gold [...] Encounter 02/09/2019 02/02/2019 Orders Only General Internal Ar dicine 02/02/2019 Travel Ayse Varela MD 01/24/2019 [...] Diabetic infection of left foot (HCC) 01/16/2019 [facility] Internal Ar dicine - Encounter 01/25/2019 01/16/2019 Travel after [...] CDT Oxygen Saturation 100% 02/23/2019 3:42 AM CLINICAL PSYCHOLOGIST Inhaled Oxygen 21% Concentration 10/07/2019 1:45 PM [...] L ot Implanted Type Area Manufactur er [id number] 08/23/2020 [id number] / / [id number] Stent Synergy Otw [id number] IMPLANTS Left: Leg KING STON [id number] - [id number] SCI:INTERV Implanted: Qty: 1 on 04/07/2019 by CARDIOLOGY Roland Wilson MD [id number] 01/23/2021 [id number] / [id number] / Cath [id number] IMPLANTS Left: Leg WL GORE & - [id number] ASSC:MED Implanted: Qty: 1 on 04/07/2019 by Roland Amos MD [id number] 09/13/2021 [id number] / [id number] / Stent Art Fem 6fr [id number] IMPLANTS Left: Leg WL GORE & [id number] - [id number] ASSC:MED Implanted: Qty: 1 on 04/07/2019 by Roland Amos MD [id number] 10/29/2020 [id number] / / [id number] Stent Ls Exp Vasc Cvr [id number] IMPLANTS Left: Leg CR [id number] - [id number] BARD:PERIP Implanted: Qty: 1 on 04/07/2019 by HERRoland Vaughan MD 05/29/2021 [id number] / / [id number] Pwdr Cellerate Clgn 1gm Strl IMPLANTS Left: Foot W OUND CARE [id number] - [id number] INNOVATION Implanted: Qty: 2 on 08/08/2019 by Kj Mercado, [place] [id number] 04/25/2019 [id number] / / [id number] Hyalomatrix 2x2in Left: Foot MEDLINE Implanted: Qty: 1 on 01/24/2019 by Kj Wiggins DPM 08/30/2019 [id number] / / [id number] Hyalomatrix [id number] Left: Foot MEDLINE Implanted: Qty: 1 on 01/24/2019 by Kj Wiggins DPM 06/06/2020 [id number] / / [id number] Synergy Commercial Otw 4.00mm X [place] 20mm [...] I STAT 10/06/2019 11:37 PM CDT SARS-COV2/RT-PCR ([facility] & Routine 10/06/2019 REF LABS) 11:37 PM [...] POTASSIUM Routine 08/03/2019 9:55 AM CDT SARS-COV2/RT-PCR ([facility] & Routine 08/03/2019 Preop testing REF LABS) 9:55 AM CDT XR FOOT LEFT 3 VIEW Routine 07/20/2019 Foot pain, left 10:45 AM CDT RHYTHM STRIP - SCAN 04/11/2019 3:50 PM CLINICAL PSYCHOLOGIST RHYTHM STRIP - SCAN 04/10/2019 1:42 PM CLINICAL PSYCHOLOGIST CARDIAC CATH REPORT - 04/10/2019 SCAN 1:42 PM CLINICAL PSYCHOLOGIST TRANSFUSION SERVICE 04/08/2019 REPORT - SCAN 5:52 PM CLINICAL PSYCHOLOGIST POCT-GLUCOSE METER Routine 04/08/2019 11:23 AM CLINICAL PSYCHOLOGIST POCT-GLUCOSE METER Routine 04/08/2019 7:15 AM CLINICAL PSYCHOLOGIST CBC (HEMOGRAM ONLY) Routine 04/08/2019 5:36 AM CLINICAL PSYCHOLOGIST BASIC METABOLIC PANEL (7) Routine 04/08/2019 5:36 AM CLINICAL PSYCHOLOGIST POCT-GLUCOSE METER Routine 04/07/2019 10:49 PM CLINICAL PSYCHOLOGIST POCT-GLUCOSE METER Routine 04/07/2019 4:15 PM CLINICAL PSYCHOLOGIST POCT-ACT Routine 04/07/2019 11:06 AM CLINICAL PSYCHOLOGIST POCT-ACT Routine 04/07/2019 10:50 AM CLINICAL PSYCHOLOGIST POCT-ACT Routine 04/07/2019 10:11 AM CLINICAL PSYCHOLOGIST POCT-ACT Routine 04/07/2019 9:49 AM CLINICAL PSYCHOLOGIST POCT-ACT Routine 04/07/2019 9:34 AM CLINICAL PSYCHOLOGIST PERIPHERAL ANGIOS / 04/07/2019 PVD (peripheral v ascular AORTOGRAM 7:30 AM CLINICAL PSYCHOLOGIST disease) (HCC) Case Notes 1st case CBC W/PLT COUNT & AUTO Routine 04/07/2019 DIFFERENTIAL 7:02 AM CLINICAL PSYCHOLOGIST TYPE AND SCREEN, Routine 04/07/2019 AUTOMATED 7:02 AM CLINICAL PSYCHOLOGIST CBC W/PLT COUNT & AUTO Routine 04/07/2019 DIFFERENTIAL 7:02 AM CLINICAL PSYCHOLOGIST BASIC METABOLIC PANEL (7) Routine 04/07/2019 7:02 AM CLINICAL PSYCHOLOGIST ECG 12-LEAD Routine 04/07/2019 6:54 AM CLINICAL PSYCHOLOGIST Procedure Note - Interface, External Ris In - 04/07/2019 7:09 AM CLINICAL PSYCHOLOGIST Ventricula r Rate 70 BPM Atrial Rate 70 BPM P-R Interval 230 ms QRS Duration 96 ms Q-T Interval 406 ms QTC Calculatio n(Bazett) 438 ms P [place] 27 degrees R [place] -24 degrees T [place] 62 degrees Sinus rhythm with 1st degree A-V block Possible Anterior infarct (cited on or before ) Abnormal ECG When compared with ECG of 15:49, No significan t change was found ECG 12-LEAD Routine 04/07/2019 6:54 AM CLINICAL PSYCHOLOGIST RHYTHM STRIP - SCAN 03/15/2019 11:40 AM CLINICAL PSYCHOLOGIST POCT-GLUCOSE METER Routine 03/13/2019 5:22 PM CLINICAL PSYCHOLOGIST POCT-GLUCOSE METER Routine 03/13/2019 12:46 PM CLINICAL PSYCHOLOGIST PHOSPHORUS Routine 03/13/2019 8:45 AM CLINICAL PSYCHOLOGIST BASIC METABOLIC PANEL (7) Routine 03/13/2019 8:45 AM CLINICAL PSYCHOLOGIST HEMOGLOBIN AND HEMATOCRIT Routine 03/13/2019 7:27 AM CLINICAL PSYCHOLOGIST POCT-GLUCOSE METER Routine 03/12/2019 9:53 PM CLINICAL PSYCHOLOGIST TRANSFUSION SERVICE 03/12/2019 REPORT - SCAN 6:00 PM CLINICAL PSYCHOLOGIST POCT-GLUCOSE METER Routine 03/12/2019 5:46 PM CLINICAL PSYCHOLOGIST POCT-GLUCOSE METER Routine 03/12/2019 11:56 AM CLINICAL PSYCHOLOGIST POCT-GLUCOSE METER Routine 03/12/2019 8:28 AM CLINICAL PSYCHOLOGIST HEMOGLOBIN AND HEMATOCRIT Routine 03/12/2019 4:03 AM CLINICAL PSYCHOLOGIST BASIC METABOLIC PANEL (7) Routine 03/12/2019 4:02 AM CLINICAL PSYCHOLOGIST POCT-GLUCOSE METER Routine 03/11/2019 10:24 PM CLINICAL PSYCHOLOGIST TRANSFUSION SERVICE 03/11/2019 REPORT - SCAN 6:01 PM CLINICAL PSYCHOLOGIST HEMOGLOBIN AND HEMATOCRIT Routine 03/11/2019 5:54 PM CLINICAL PSYCHOLOGIST POCT-GLUCOSE METER Routine 03/11/2019 5:35 PM CLINICAL PSYCHOLOGIST POCT-GLUCOSE METER Routine 03/11/2019 1:09 PM CLINICAL PSYCHOLOGIST VEIN MAPPING LEGS Routine 03/11/2019 BILATERAL 10:25 AM CLINICAL PSYCHOLOGIST POCT-GLUCOSE METER Routine 03/11/2019 7:31 AM CLINICAL PSYCHOLOGIST PREPARE RBC STAT 03/11/2019 6:56 AM CLINICAL PSYCHOLOGIST HEMOGLOBIN AND HEMATOCRIT Routine 03/11/2019 4:16 AM CLINICAL PSYCHOLOGIST BASIC METABOLIC PANEL (7) Routine 03/11/2019 4:16 AM CLINICAL PSYCHOLOGIST PREPARE RBC Routine 03/10/2019 11:54 PM CLINICAL PSYCHOLOGIST POCT-GLUCOSE METER Routine 03/10/2019 9:35 PM CLINICAL PSYCHOLOGIST HEMOGLOBIN AND HEMATOCRIT Routine 03/10/2019 6:20 PM CLINICAL PSYCHOLOGIST TRANSFUSION SERVICE 03/10/2019 REPORT - SCAN 6:01 PM CLINICAL PSYCHOLOGIST POCT-GLUCOSE METER Routine 03/10/2019 5:09 PM CLINICAL PSYCHOLOGIST POCT-GLUCOSE METER Routine 03/10/2019 1:35 PM CLINICAL PSYCHOLOGIST BASIC METABOLIC PANEL (7) Routine 03/10/2019 11:33 AM CLINICAL PSYCHOLOGIST HEMODIALYSIS INPATIENT Routine 03/10/2019 9:19 AM CLINICAL PSYCHOLOGIST BLOOD CULTURE Routine 03/10/2019 8:33 AM CLINICAL PSYCHOLOGIST CBC W/PLT COUNT & AUTO Routine 03/10/2019 DIFFERENTIAL 8:32 AM CLINICAL PSYCHOLOGIST CBC W/PLT COUNT & AUTO Add-On 03/10/2019 DIFFERENTIAL 8:32 AM CLINICAL PSYCHOLOGIST FERRITIN Routine 03/10/2019 8:32 AM CLINICAL PSYCHOLOGIST IRON, TIBC, % SAT. Routine 03/10/2019 (WITHOUT FERRITIN) 8:32 AM CLINICAL PSYCHOLOGIST HEMOGLOBIN AND HEMATOCRIT Routine 03/10/2019 8:32 AM CLINICAL PSYCHOLOGIST POCT-GLUCOSE METER Routine 03/10/2019 7:33 AM CLINICAL PSYCHOLOGIST HEMOGLOBIN AND HEMATOCRIT Routine 03/09/2019 11:29 PM CLINICAL PSYCHOLOGIST POCT-GLUCOSE METER Routine 03/09/2019 11:16 PM CLINICAL PSYCHOLOGIST TRANSFUSE LEUKO-REDUCED Routine 03/09/2019 RED BLOOD CELLS 8:47 PM CLINICAL PSYCHOLOGIST POCT-GLUCOSE METER Routine 03/09/2019 7:51 PM CLINICAL PSYCHOLOGIST ARTERIAL DOPPLER LEGS Routine 03/09/2019 BILATERAL 6:51 PM CLINICAL PSYCHOLOGIST TRANSFUSION SERVICE 03/09/2019 REPORT - SCAN 6:01 PM CLINICAL PSYCHOLOGIST PROTHROMBIN TIME/INR Routine 03/09/2019 2:56 PM CLINICAL PSYCHOLOGIST POCT-GLUCOSE METER Routine 03/09/2019 1:14 PM CLINICAL PSYCHOLOGIST CBC W/PLT COUNT & AUTO Routine 03/09/2019 DIFFERENTIAL 11:53 AM CLINICAL PSYCHOLOGIST CBC W/PLT COUNT & AUTO Routine 03/09/2019 DIFFERENTIAL 11:53 AM CLINICAL PSYCHOLOGIST BASIC METABOLIC PANEL (7) Routine 03/09/2019 11:53 AM CLINICAL PSYCHOLOGIST BLOOD CULTURE Routine 03/09/2019 11:53 AM CLINICAL PSYCHOLOGIST POCT-GLUCOSE METER Routine 03/09/2019 7:49 AM CLINICAL PSYCHOLOGIST HEMOGLOBIN AND HEMATOCRIT Routine 03/09/2019 5:45 AM CLINICAL PSYCHOLOGIST HEPATITIS B SURFACE STAT 03/09/2019 ANTIGEN 5:45 AM CLINICAL PSYCHOLOGIST XR FOOT LEFT 3 VIEW Routine 03/08/2019 8:56 PM CLINICAL PSYCHOLOGIST POCT-GLUCOSE METER Routine 03/08/2019 8:29 PM CLINICAL PSYCHOLOGIST TRANSFUSE LEUKO-REDUCED Routine 03/08/2019 RED BLOOD CELLS 6:43 PM CLINICAL PSYCHOLOGIST TRANSFUSION SERVICE 03/08/2019 REPORT - SCAN 6:18 PM CLINICAL PSYCHOLOGIST HEMODIALYSIS INPATIENT Routine 03/08/2019 3:32 PM CLINICAL PSYCHOLOGIST POCT-GLUCOSE METER Routine 03/08/2019 11:39 AM CLINICAL PSYCHOLOGIST POCT-GLUCOSE METER Routine 03/08/2019 9:42 AM CLINICAL PSYCHOLOGIST PREPARE LEUKO-REDUCED RBC Routine 03/08/2019 9:39 AM CLINICAL PSYCHOLOGIST HEMOGLOBIN AND HEMATOCRIT Routine 03/08/2019 6:21 AM CLINICAL PSYCHOLOGIST CBC W/PLT COUNT & AUTO STAT 03/07/2019 DIFFERENTIAL 10:27 PM CLINICAL PSYCHOLOGIST TYPE AND SCREEN, STAT 03/07/2019 AUTOMATED 10:27 PM CLINICAL PSYCHOLOGIST PHOSPHORUS Add-On 03/07/2019 10:27 PM CLINICAL PSYCHOLOGIST PT/APTT STAT 03/07/2019 10:27 PM CLINICAL PSYCHOLOGIST CBC W/PLT COUNT & AUTO STAT 03/07/2019 DIFFERENTIAL 10:27 PM CLINICAL PSYCHOLOGIST BASIC METABOLIC PANEL (7) STAT 03/07/2019 10:27 PM CLINICAL PSYCHOLOGIST REPORT OF PROCEDURE - 02/27/2019 ENDOSCOPY SCAN 8:41 AM CLINICAL PSYCHOLOGIST RHYTHM STRIP - SCAN 02/27/2019 8:41 AM CLINICAL PSYCHOLOGIST TRANSFUSION SERVICE 02/25/2019 REPORT - SCAN 6:04 PM CLINICAL PSYCHOLOGIST TRANSFUSION SERVICE 02/23/2019 REPORT - SCAN 6:02 PM CLINICAL PSYCHOLOGIST TISSUE EXAM AP Routine 02/23/2019 8:18 AM CLINICAL PSYCHOLOGIST UPPER ENDOSCOPY 02/23/2019 Gastrointestinal 8:00 AM CLINICAL PSYCHOLOGIST hemorrhage, unspecified gastrointestinal hemorrhage type POCT-GLUCOSE METER Routine 02/23/2019 6:51 AM CLINICAL PSYCHOLOGIST CBC W/PLT COUNT & AUTO Routine 02/23/2019 DIFFERENTIAL 5:59 AM CLINICAL PSYCHOLOGIST CBC W/PLT COUNT & AUTO Routine 02/23/2019 DIFFERENTIAL 5:59 AM CLINICAL PSYCHOLOGIST BASIC METABOLIC PANEL (7) Routine 02/23/2019 5:59 AM CLINICAL PSYCHOLOGIST PHOSPHORUS Routine 02/23/2019 5:59 AM CLINICAL PSYCHOLOGIST MAGNESIUM Routine 02/23/2019 5:59 AM CLINICAL PSYCHOLOGIST POCT-GLUCOSE METER Routine 02/22/2019 8:56 PM CLINICAL PSYCHOLOGIST PREPARE LEUKO-REDUCED RBC Routine 02/22/2019 4:47 PM CLINICAL PSYCHOLOGIST POCT-GLUCOSE METER Routine 02/22/2019 1:08 PM CLINICAL PSYCHOLOGIST TYPE AND SCREEN, STAT 02/22/2019 AUTOMATED 11:01 AM CLINICAL PSYCHOLOGIST HEPATITIS B SURFACE Routine 02/22/2019 ANTIGEN 9:56 AM CLINICAL PSYCHOLOGIST HEPATITIS B SURFACE Routine 02/22/2019 ANTIBODY 9:56 AM CLINICAL PSYCHOLOGIST POCT-GLUCOSE METER Routine 02/22/2019 6:37 AM CLINICAL PSYCHOLOGIST CBC W/PLT COUNT & AUTO Routine 02/22/2019 DIFFERENTIAL 5:31 AM CLINICAL PSYCHOLOGIST CBC W/PLT COUNT & AUTO Routine 02/22/2019 DIFFERENTIAL 5:31 AM CLINICAL PSYCHOLOGIST BASIC METABOLIC PANEL (7) Routine 02/22/2019 5:31 AM CLINICAL PSYCHOLOGIST PHOSPHORUS Routine 02/22/2019 5:31 AM CLINICAL PSYCHOLOGIST MAGNESIUM Routine 02/22/2019 5:31 AM CLINICAL PSYCHOLOGIST TROPONIN I STAT 02/22/2019 5:31 AM CLINICAL PSYCHOLOGIST POCT-GLUCOSE METER Routine 02/21/2019 8:42 PM CLINICAL PSYCHOLOGIST HEMODIALYSIS INPATIENT Routine 02/21/2019 7:03 PM CLINICAL PSYCHOLOGIST POCT-GLUCOSE METER Routine 02/21/2019 4:20 PM CLINICAL PSYCHOLOGIST POCT-GLUCOSE METER Routine 02/21/2019 11:44 AM CLINICAL PSYCHOLOGIST POCT-GLUCOSE METER Routine 02/21/2019 5:57 AM CLINICAL PSYCHOLOGIST CBC W/PLT COUNT & AUTO Routine 02/21/2019 DIFFERENTIAL 4:20 AM CLINICAL PSYCHOLOGIST CBC W/PLT COUNT & AUTO Routine 02/21/2019 DIFFERENTIAL 4:20 AM CLINICAL PSYCHOLOGIST PHOSPHORUS Routine 02/21/2019 4:20 AM CLINICAL PSYCHOLOGIST MAGNESIUM Routine 02/21/2019 4:20 AM CLINICAL PSYCHOLOGIST BASIC METABOLIC PANEL (7) Routine 02/21/2019 4:20 AM CLINICAL PSYCHOLOGIST TROPONIN I STAT 02/21/2019 12:15 AM CLINICAL PSYCHOLOGIST POCT-GLUCOSE METER Routine 02/20/2019 9:43 PM CLINICAL PSYCHOLOGIST POCT-GLUCOSE METER Routine 02/20/2019 6:29 PM CLINICAL PSYCHOLOGIST POCT-GLUCOSE METER Routine 02/20/2019 4:57 PM CLINICAL PSYCHOLOGIST POCT-GLUCOSE METER Routine 02/20/2019 3:25 PM CLINICAL PSYCHOLOGIST POCT-GLUCOSE METER Routine 02/20/2019 2:18 PM CLINICAL PSYCHOLOGIST POCT-GLUCOSE METER Routine 02/20/2019 1:07 PM CLINICAL PSYCHOLOGIST POCT-GLUCOSE METER Routine 02/20/2019 12:00 PM CLINICAL PSYCHOLOGIST POCT-GLUCOSE METER Routine 02/20/2019 11:03 AM CLINICAL PSYCHOLOGIST POCT-GLUCOSE METER Routine 02/20/2019 9:34 AM CLINICAL PSYCHOLOGIST POCT-GLUCOSE METER Routine 02/20/2019 7:18 AM CLINICAL PSYCHOLOGIST POCT-GLUCOSE METER Routine 02/20/2019 6:23 AM CLINICAL PSYCHOLOGIST TROPONIN I STAT 02/20/2019 5:18 AM CLINICAL PSYCHOLOGIST BASIC METABOLIC PANEL (7) STAT 02/20/2019 5:18 AM CLINICAL PSYCHOLOGIST POCT-GLUCOSE METER Routine 02/20/2019 4:47 AM CLINICAL PSYCHOLOGIST XR CHEST 1 VIEW STAT 02/20/2019 PORTABLE/BEDSIDE 4:16 AM CLINICAL PSYCHOLOGIST POCT-GLUCOSE METER Routine 02/20/2019 4:08 AM CLINICAL PSYCHOLOGIST ED ECG INTERPRETATION Routine 02/20/2019 3:25 AM CLINICAL PSYCHOLOGIST ED ECG INTERPRETATION Routine 02/20/2019 3:25 AM CLINICAL PSYCHOLOGIST PROCEDURAL SEDATION Routine 02/20/2019 3:25 AM CLINICAL PSYCHOLOGIST ELECTRICAL CARDIOVERSION Routine 02/20/2019 3:25 AM CLINICAL PSYCHOLOGIST POCT-GLUCOSE METER Routine 02/20/2019 3:11 AM CLINICAL PSYCHOLOGIST TROPONIN I STAT 02/20/2019 2:52 AM CLINICAL PSYCHOLOGIST MAGNESIUM STAT 02/20/2019 2:52 AM CLINICAL PSYCHOLOGIST BASIC METABOLIC PANEL (7) STAT 02/20/2019 2:52 AM CLINICAL PSYCHOLOGIST CBC W/PLT COUNT & AUTO STAT 02/20/2019 DIFFERENTIAL 2:51 AM CLINICAL PSYCHOLOGIST APTT STAT 02/20/2019 2:51 AM CLINICAL PSYCHOLOGIST PROTHROMBIN TIME/INR STAT 02/20/2019 2:51 AM CLINICAL PSYCHOLOGIST CBC W/PLT COUNT & AUTO STAT 02/20/2019 DIFFERENTIAL 2:51 AM CLINICAL PSYCHOLOGIST B-TYPE NATRIURETIC FACTOR STAT 02/20/2019 (BNP) 2:51 AM CLINICAL PSYCHOLOGIST TRANSFUSION SERVICE 02/12/2019 REPORT - SCAN 6:00 PM CLINICAL PSYCHOLOGIST TRANSFUSION SERVICE 02/10/2019 REPORT - SCAN 6:00 PM CLINICAL PSYCHOLOGIST RHYTHM STRIP - SCAN 02/10/2019 2:01 PM CLINICAL PSYCHOLOGIST REPORT OF PROCEDURE - 02/10/2019 ENDOSCOPY SCAN 2:01 PM CLINICAL PSYCHOLOGIST PREPARE LEUKO-REDUCED RBC Routine 02/09/2019 11:54 PM CLINICAL PSYCHOLOGIST TRANSFUSION SERVICE 02/09/2019 REPORT - SCAN 6:01 PM CLINICAL PSYCHOLOGIST PREPARE RBC Routine 02/09/2019 1:18 PM CLINICAL PSYCHOLOGIST POCT-GLUCOSE METER Routine 02/09/2019 8:32 AM CLINICAL PSYCHOLOGIST HEMOGLOBIN AND HEMATOCRIT Routine 02/09/2019 5:27 AM CLINICAL PSYCHOLOGIST TRANSFUSE LEUKO-REDUCED Routine 02/09/2019 RED BLOOD CELLS 12:39 AM CLINICAL PSYCHOLOGIST POCT-GLUCOSE METER Routine 02/09/2019 12:12 AM CLINICAL PSYCHOLOGIST PREPARE RBC Routine 02/08/2019 11:54 PM CLINICAL PSYCHOLOGIST POCT-GLUCOSE METER Routine 02/08/2019 8:03 PM CLINICAL PSYCHOLOGIST TRANSFUSE LEUKO-REDUCED Routine 02/08/2019 RED BLOOD CELLS 6:49 PM CLINICAL PSYCHOLOGIST TRANSFUSION SERVICE 02/08/2019 REPORT - SCAN 6:01 PM CLINICAL PSYCHOLOGIST POCT-GLUCOSE METER Routine 02/08/2019 4:34 PM CLINICAL PSYCHOLOGIST POCT-GLUCOSE METER Routine 02/08/2019 1:51 PM CLINICAL PSYCHOLOGIST HEMODIALYSIS INPATIENT Routine 02/08/2019 12:14 PM CLINICAL PSYCHOLOGIST POCT-GLUCOSE METER Routine 02/08/2019 8:09 AM CLINICAL PSYCHOLOGIST CBC W/PLT COUNT & AUTO Routine 02/08/2019 DIFFERENTIAL 4:31 AM CLINICAL PSYCHOLOGIST CBC W/PLT COUNT & AUTO Routine 02/08/2019 DIFFERENTIAL 4:31 AM CLINICAL PSYCHOLOGIST PHOSPHORUS Routine 02/08/2019 4:31 AM CLINICAL PSYCHOLOGIST MAGNESIUM Routine 02/08/2019 4:31 AM CLINICAL PSYCHOLOGIST BASIC METABOLIC PANEL (7) Routine 02/08/2019 4:31 AM CLINICAL PSYCHOLOGIST POCT-GLUCOSE METER Routine 02/08/2019 12:08 AM CLINICAL PSYCHOLOGIST TRANSFUSE LEUKO-REDUCED Routine 02/07/2019 RED BLOOD CELLS 10:25 PM CLINICAL PSYCHOLOGIST POCT-GLUCOSE METER Routine 02/07/2019 9:30 PM CLINICAL PSYCHOLOGIST POCT-GLUCOSE METER Routine 02/07/2019 8:00 PM CLINICAL PSYCHOLOGIST TRANSFUSION SERVICE 02/07/2019 REPORT - SCAN 6:50 PM CLINICAL PSYCHOLOGIST TYPE AND SCREEN, Routine 02/07/2019 AUTOMATED 3:32 PM CLINICAL PSYCHOLOGIST POCT-GLUCOSE METER Routine 02/07/2019 1:01 PM CLINICAL PSYCHOLOGIST POCT-GLUCOSE METER Routine 02/07/2019 8:16 AM CLINICAL PSYCHOLOGIST CBC W/PLT COUNT & AUTO Routine 02/07/2019 DIFFERENTIAL 6:13 AM CLINICAL PSYCHOLOGIST CBC W/PLT COUNT & AUTO Routine 02/07/2019 DIFFERENTIAL 6:13 AM CLINICAL PSYCHOLOGIST PHOSPHORUS Routine 02/07/2019 6:13 AM CLINICAL PSYCHOLOGIST MAGNESIUM Routine 02/07/2019 6:13 AM CLINICAL PSYCHOLOGIST BASIC METABOLIC PANEL (7) Routine 02/07/2019 6:13 AM CLINICAL PSYCHOLOGIST PREPARE LEUKO-REDUCED RBC Routine 02/06/2019 11:54 PM CLINICAL PSYCHOLOGIST POCT-GLUCOSE METER Routine 02/06/2019 10:20 PM CLINICAL PSYCHOLOGIST POCT-GLUCOSE METER Routine 02/06/2019 8:18 PM CLINICAL PSYCHOLOGIST HEMODIALYSIS INPATIENT Routine 02/06/2019 6:10 PM CLINICAL PSYCHOLOGIST TRANSFUSION SERVICE 02/06/2019 REPORT - SCAN 6:00 PM CLINICAL PSYCHOLOGIST POCT-GLUCOSE METER Routine 02/06/2019 5:07 PM CLINICAL PSYCHOLOGIST POCT-GLUCOSE METER Routine 02/06/2019 2:41 PM CLINICAL PSYCHOLOGIST POCT-GLUCOSE METER Routine 02/06/2019 8:26 AM CLINICAL PSYCHOLOGIST CBC W/PLT COUNT & AUTO Routine 02/06/2019 DIFFERENTIAL 4:42 AM CLINICAL PSYCHOLOGIST CBC W/PLT COUNT & AUTO Routine 02/06/2019 DIFFERENTIAL 4:42 AM CLINICAL PSYCHOLOGIST PHOSPHORUS Routine 02/06/2019 4:42 AM CLINICAL PSYCHOLOGIST MAGNESIUM Routine 02/06/2019 4:42 AM CLINICAL PSYCHOLOGIST BASIC METABOLIC PANEL (7) Routine 02/06/2019 4:42 AM CLINICAL PSYCHOLOGIST PREPARE LEUKO-REDUCED RBC Routine 02/05/2019 11:54 PM CLINICAL PSYCHOLOGIST POCT-GLUCOSE METER Routine 02/05/2019 8:57 PM CLINICAL PSYCHOLOGIST TRANSFUSE LEUKO-REDUCED Routine 02/05/2019 RED BLOOD CELLS 6:48 PM CLINICAL PSYCHOLOGIST TRANSFUSION SERVICE 02/05/2019 REPORT - SCAN 6:00 PM CLINICAL PSYCHOLOGIST POCT-GLUCOSE METER Routine 02/05/2019 3:50 PM CLINICAL PSYCHOLOGIST POCT-GLUCOSE METER Routine 02/05/2019 10:46 AM CLINICAL PSYCHOLOGIST CBC W/PLT COUNT & AUTO Routine 02/05/2019 DIFFERENTIAL 4:37 AM CLINICAL PSYCHOLOGIST CBC W/PLT COUNT & AUTO Routine 02/05/2019 DIFFERENTIAL 4:37 AM CLINICAL PSYCHOLOGIST PHOSPHORUS Routine 02/05/2019 4:37 AM CLINICAL PSYCHOLOGIST MAGNESIUM Routine 02/05/2019 4:37 AM CLINICAL PSYCHOLOGIST BASIC METABOLIC PANEL (7) Routine 02/05/2019 4:37 AM CLINICAL PSYCHOLOGIST PREPARE LEUKO-REDUCED RBC Routine 02/04/2019 11:54 PM CLINICAL PSYCHOLOGIST TRANSFUSE LEUKO-REDUCED Routine 02/04/2019 RED BLOOD CELLS 9:23 PM CLINICAL PSYCHOLOGIST POCT-GLUCOSE METER Routine 02/04/2019 7:36 PM CLINICAL PSYCHOLOGIST TRANSFUSION SERVICE 02/04/2019 REPORT - SCAN 6:00 PM CLINICAL PSYCHOLOGIST TYPE AND SCREEN, Routine 02/04/2019 AUTOMATED 5:01 PM CLINICAL PSYCHOLOGIST POCT-GLUCOSE METER Routine 02/04/2019 4:11 PM CLINICAL PSYCHOLOGIST POCT-GLUCOSE METER Routine 02/04/2019 9:53 AM CLINICAL PSYCHOLOGIST CBC W/PLT COUNT & AUTO Routine 02/04/2019 DIFFERENTIAL 5:29 AM CLINICAL PSYCHOLOGIST CBC W/PLT COUNT & AUTO Routine 02/04/2019 DIFFERENTIAL 5:29 AM CLINICAL PSYCHOLOGIST PHOSPHORUS Routine 02/04/2019 5:29 AM CLINICAL PSYCHOLOGIST MAGNESIUM Routine 02/04/2019 5:29 AM CLINICAL PSYCHOLOGIST BASIC METABOLIC PANEL (7) Routine 02/04/2019 5:29 AM CLINICAL PSYCHOLOGIST TRANSFUSION SERVICE 02/03/2019 REPORT - SCAN 6:04 PM CLINICAL PSYCHOLOGIST ANTIBODY IDENTIFICATION STAT 02/03/2019 4:05 PM CLINICAL PSYCHOLOGIST POCT-GLUCOSE METER Routine 02/03/2019 3:19 PM CLINICAL PSYCHOLOGIST LACTIC ACID, VENOUS STAT 02/03/2019 8:54 AM CLINICAL PSYCHOLOGIST BLOOD CULTURE Routine 02/03/2019 8:53 AM CLINICAL PSYCHOLOGIST POCT-GLUCOSE METER Routine 02/03/2019 8:35 AM CLINICAL PSYCHOLOGIST HEMODIALYSIS INPATIENT Routine 02/03/2019 8:32 AM CLINICAL PSYCHOLOGIST TRANSFUSE LEUKO-REDUCED Routine 02/03/2019 RED BLOOD CELLS 8:02 AM CLINICAL PSYCHOLOGIST CBC W/PLT COUNT & AUTO Routine 02/03/2019 DIFFERENTIAL 5:14 AM CLINICAL PSYCHOLOGIST CBC W/PLT COUNT & AUTO Routine 02/03/2019 DIFFERENTIAL 5:14 AM CLINICAL PSYCHOLOGIST PHOSPHORUS Routine 02/03/2019 5:14 AM CLINICAL PSYCHOLOGIST MAGNESIUM Routine 02/03/2019 5:14 AM CLINICAL PSYCHOLOGIST BASIC METABOLIC PANEL (7) Routine 02/03/2019 5:14 AM CLINICAL PSYCHOLOGIST POCT-GLUCOSE METER Routine 02/03/2019 4:58 AM CLINICAL PSYCHOLOGIST PREPARE RBC Routine 02/03/2019 3:24 AM CLINICAL PSYCHOLOGIST HEPATITIS B PANEL Routine 02/03/2019 12:25 AM CLINICAL PSYCHOLOGIST HEPATITIS C ANTIBODY Routine 02/03/2019 12:25 AM CLINICAL PSYCHOLOGIST HIV-1 ANTIGEN WITH Routine 02/03/2019 HIV-1/2 ANTIBODY 12:25 AM CLINICAL PSYCHOLOGIST POCT-GLUCOSE METER Routine 02/02/2019 9:15 PM CLINICAL PSYCHOLOGIST CBC W/PLT COUNT & AUTO STAT 02/02/2019 DIFFERENTIAL 7:57 PM CLINICAL PSYCHOLOGIST DIRECT AHG (KAYLENE)/DIRECT STAT 02/02/2019 KAYDEN 7:57 PM CLINICAL PSYCHOLOGIST TYPE AND SCREEN, STAT 02/02/2019 AUTOMATED 7:57 PM CLINICAL PSYCHOLOGIST B-TYPE NATRIURETIC FACTOR STAT 02/02/2019 (BNP) 7:57 PM CLINICAL PSYCHOLOGIST PT/APTT STAT 02/02/2019 7:57 PM CLINICAL PSYCHOLOGIST CBC W/PLT COUNT & AUTO STAT 02/02/2019 DIFFERENTIAL 7:57 PM CLINICAL PSYCHOLOGIST TROPONIN I STAT 02/02/2019 7:57 PM CLINICAL PSYCHOLOGIST MAGNESIUM STAT 02/02/2019 7:57 PM CLINICAL PSYCHOLOGIST BASIC METABOLIC PANEL (7) STAT 02/02/2019 7:57 PM CLINICAL PSYCHOLOGIST XR CHEST 1 VIEW STAT 02/02/2019 PORTABLE/BEDSIDE 7:31 PM CLINICAL PSYCHOLOGIST ECG 12-LEAD STAT 02/02/2019 3:49 PM CLINICAL PSYCHOLOGIST CARDIAC CATH REPORT - 01/31/2019 SCAN 8:32 AM CLINICAL PSYCHOLOGIST RHYTHM STRIP - SCAN 01/31/2019 8:32 AM CLINICAL PSYCHOLOGIST POCT-GLUCOSE METER Routine 01/25/2019 9:20 PM CLINICAL PSYCHOLOGIST HEMODIALYSIS INPATIENT Routine 01/25/2019 8:35 PM CLINICAL PSYCHOLOGIST POCT-GLUCOSE METER Routine 01/25/2019 6:08 PM CLINICAL PSYCHOLOGIST POCT-GLUCOSE METER Routine 01/25/2019 11:05 AM CLINICAL PSYCHOLOGIST POCT-GLUCOSE METER Routine 01/25/2019 8:00 AM CLINICAL PSYCHOLOGIST CBC W/PLT COUNT & AUTO Routine 01/25/2019 DIFFERENTIAL 4:26 AM CLINICAL PSYCHOLOGIST CBC W/PLT COUNT & AUTO Routine 01/25/2019 DIFFERENTIAL 4:26 AM CLINICAL PSYCHOLOGIST BASIC METABOLIC PANEL (7) Routine 01/25/2019 4:26 AM CLINICAL PSYCHOLOGIST POCT-GLUCOSE METER Routine 01/24/2019 9:23 PM CLINICAL PSYCHOLOGIST POCT-GLUCOSE METER Routine 01/24/2019 5:09 PM CLINICAL PSYCHOLOGIST POCT-GLUCOSE METER Routine 01/24/2019 12:17 PM CLINICAL PSYCHOLOGIST XR FOOT LEFT 3 VIEW Routine 01/24/2019 10:49 AM CLINICAL PSYCHOLOGIST POCT-GLUCOSE METER Routine 01/24/2019 9:52 AM CLINICAL PSYCHOLOGIST TISSUE EXAM AP Routine 01/24/2019 8:35 AM CLINICAL PSYCHOLOGIST SKIN GRAFT,SKIN 01/24/2019 Non-healing wound o f left SUBSTITUTE 7:30 AM CLINICAL PSYCHOLOGIST heel DEBRIDEMENT/I&D,WOUND 01/24/2019 Non-healing wou nd of left EXTREMITY LOWER 7:30 AM CLINICAL PSYCHOLOGIST heel CBC W/PLT COUNT & AUTO Routine 01/24/2019 DIFFERENTIAL 3:21 AM CLINICAL PSYCHOLOGIST CBC W/PLT COUNT & AUTO Routine 01/24/2019 DIFFERENTIAL 3:21 AM CLINICAL PSYCHOLOGIST BASIC METABOLIC PANEL (7) Routine 01/24/2019 3:21 AM CLINICAL PSYCHOLOGIST POCT-GLUCOSE METER Routine 01/23/2019 9:17 PM CLINICAL PSYCHOLOGIST POCT-GLUCOSE METER Routine 01/23/2019 5:34 PM CLINICAL PSYCHOLOGIST POCT-GLUCOSE METER Routine 01/23/2019 12:24 PM CLINICAL PSYCHOLOGIST POCT-GLUCOSE METER Routine 01/23/2019 8:13 AM CLINICAL PSYCHOLOGIST CBC W/PLT COUNT & AUTO Routine 01/23/2019 DIFFERENTIAL 4:34 AM CLINICAL PSYCHOLOGIST CBC W/PLT COUNT & AUTO Routine 01/23/2019 DIFFERENTIAL 4:34 AM CLINICAL PSYCHOLOGIST BASIC METABOLIC PANEL (7) Routine 01/23/2019 4:34 AM CLINICAL PSYCHOLOGIST POCT-GLUCOSE METER Routine 01/22/2019 9:10 PM CLINICAL PSYCHOLOGIST POCT-GLUCOSE METER Routine 01/22/2019 3:52 PM CLINICAL PSYCHOLOGIST POCT-GLUCOSE METER Routine 01/22/2019 12:14 PM CLINICAL PSYCHOLOGIST POCT-GLUCOSE METER Routine 01/22/2019 7:05 AM CLINICAL PSYCHOLOGIST CBC W/PLT COUNT & AUTO Routine 01/22/2019 DIFFERENTIAL 4:42 AM CLINICAL PSYCHOLOGIST CBC W/PLT COUNT & AUTO Routine 01/22/2019 DIFFERENTIAL 4:42 AM CLINICAL PSYCHOLOGIST BASIC METABOLIC PANEL (7) Routine 01/22/2019 4:42 AM CLINICAL PSYCHOLOGIST POCT-GLUCOSE METER Routine 01/21/2019 11:00 PM CLINICAL PSYCHOLOGIST TRANSFUSION SERVICE 01/21/2019 REPORT - SCAN 6:03 PM CLINICAL PSYCHOLOGIST POCT-GLUCOSE METER Routine 01/21/2019 5:42 PM CLINICAL PSYCHOLOGIST POCT-GLUCOSE METER Routine 01/21/2019 12:11 PM CLINICAL PSYCHOLOGIST POCT-GLUCOSE METER Routine 01/21/2019 6:57 AM CLINICAL PSYCHOLOGIST CBC W/PLT COUNT & AUTO Routine 01/21/2019 DIFFERENTIAL 4:13 AM CLINICAL PSYCHOLOGIST CBC W/PLT COUNT & AUTO Routine 01/21/2019 DIFFERENTIAL 4:13 AM CLINICAL PSYCHOLOGIST BASIC METABOLIC PANEL (7) Routine 01/21/2019 4:13 AM CLINICAL PSYCHOLOGIST POCT-GLUCOSE METER Routine 01/20/2019 7:59 PM CLINICAL PSYCHOLOGIST TRANSFUSION SERVICE 01/20/2019 REPORT - SCAN 6:03 PM CLINICAL PSYCHOLOGIST POCT-GLUCOSE METER Routine 01/20/2019 2:37 PM CLINICAL PSYCHOLOGIST POCT-ACT Routine 01/20/2019 1:08 PM CLINICAL PSYCHOLOGIST HEMOGLOBIN AND HEMATOCRIT STAT 01/20/2019 1:04 PM CLINICAL PSYCHOLOGIST PERIPHERAL ANGIOS & IVUS 01/20/2019 Ischemia 12:34 PM CLINICAL PSYCHOLOGIST Case Notes 942 POCT-GLUCOSE METER Routine 01/20/2019 11:27 AM CLINICAL PSYCHOLOGIST HEMODIALYSIS INPATIENT Routine 01/20/2019 9:12 AM CLINICAL PSYCHOLOGIST POCT-GLUCOSE METER Routine 01/20/2019 7:41 AM CLINICAL PSYCHOLOGIST CBC W/PLT COUNT & AUTO Routine 01/20/2019 DIFFERENTIAL 4:09 AM CLINICAL PSYCHOLOGIST VANCOMYCIN LEVEL, RANDOM Routine 01/20/2019 4:09 AM CLINICAL PSYCHOLOGIST CBC W/PLT COUNT & AUTO Routine 01/20/2019 DIFFERENTIAL 4:09 AM CLINICAL PSYCHOLOGIST BASIC METABOLIC PANEL (7) Routine 01/20/2019 4:09 AM CLINICAL PSYCHOLOGIST PREPARE LEUKO-REDUCED RBC Routine 01/19/2019 11:54 PM CLINICAL PSYCHOLOGIST POCT-GLUCOSE METER Routine 01/19/2019 9:44 PM CLINICAL PSYCHOLOGIST TRANSFUSION SERVICE 01/19/2019 REPORT - SCAN 5:54 PM CLINICAL PSYCHOLOGIST POCT-GLUCOSE METER Routine 01/19/2019 5:28 PM CLINICAL PSYCHOLOGIST POCT-GLUCOSE METER Routine 01/19/2019 11:43 AM CLINICAL PSYCHOLOGIST POCT-GLUCOSE METER Routine 01/19/2019 7:29 AM CLINICAL PSYCHOLOGIST CBC W/PLT COUNT & AUTO Routine 01/19/2019 DIFFERENTIAL 3:18 AM CLINICAL PSYCHOLOGIST VANCOMYCIN LEVEL, RANDOM Routine 01/19/2019 3:18 AM CLINICAL PSYCHOLOGIST CBC W/PLT COUNT & AUTO Routine 01/19/2019 DIFFERENTIAL 3:18 AM CLINICAL PSYCHOLOGIST BASIC METABOLIC PANEL (7) Routine 01/19/2019 3:18 AM CLINICAL PSYCHOLOGIST PHOSPHORUS Routine 01/19/2019 3:18 AM CLINICAL PSYCHOLOGIST MAGNESIUM Routine 01/19/2019 3:18 AM CLINICAL PSYCHOLOGIST CALCIUM, IONIZED Routine 01/19/2019 3:18 AM CLINICAL PSYCHOLOGIST HEMODIALYSIS INPATIENT Routine 01/18/2019 10:32 PM CLINICAL PSYCHOLOGIST POCT-GLUCOSE METER Routine 01/18/2019 10:28 PM CLINICAL PSYCHOLOGIST TRANSFUSE LEUKO-REDUCED Routine 01/18/2019 RED BLOOD CELLS 9:34 PM CLINICAL PSYCHOLOGIST TYPE AND SCREEN, Routine 01/18/2019 AUTOMATED 6:25 PM CLINICAL PSYCHOLOGIST POCT-GLUCOSE METER Routine 01/18/2019 4:33 PM CLINICAL PSYCHOLOGIST POCT-GLUCOSE METER Routine 01/18/2019 12:22 PM CLINICAL PSYCHOLOGIST XR FOOT LEFT 3 VIEW Routine 01/18/2019 11:09 AM CLINICAL PSYCHOLOGIST ANAEROBIC CULTURE Routine 01/18/2019 9:17 AM CLINICAL PSYCHOLOGIST SURGICALLY OBTAINED Routine 01/18/2019 CULTURE + GRAM STAIN 9:17 AM CLINICAL PSYCHOLOGIST ANAEROBIC CULTURE Routine 01/18/2019 9:15 AM CLINICAL PSYCHOLOGIST SURGICALLY OBTAINED Routine 01/18/2019 CULTURE + GRAM STAIN 9:15 AM CLINICAL PSYCHOLOGIST TISSUE EXAM AP Routine 01/18/2019 9:15 AM CLINICAL PSYCHOLOGIST I&D,BONE FOOT 01/18/2019 Diabetic foot infec tion 8:00 AM CLINICAL PSYCHOLOGIST (HCC) Special Needs (SAW) CBC W/PLT COUNT & AUTO Routine 01/18/2019 DIFFERENTIAL 3:19 AM CLINICAL PSYCHOLOGIST CBC W/PLT COUNT & AUTO Routine 01/18/2019 DIFFERENTIAL 3:19 AM CLINICAL PSYCHOLOGIST BASIC METABOLIC PANEL (7) Routine 01/18/2019 3:19 AM CLINICAL PSYCHOLOGIST HEPATITIS B SURFACE Routine 01/18/2019 ANTIGEN 3:19 AM CLINICAL PSYCHOLOGIST PHOSPHORUS Routine 01/18/2019 3:19 AM CLINICAL PSYCHOLOGIST MAGNESIUM Routine 01/18/2019 3:19 AM CLINICAL PSYCHOLOGIST CALCIUM, IONIZED Routine 01/18/2019 3:19 AM CLINICAL PSYCHOLOGIST VANCOMYCIN LEVEL, RANDOM Routine 01/18/2019 3:19 AM CLINICAL PSYCHOLOGIST POCT-GLUCOSE METER Routine 01/17/2019 11:17 PM CLINICAL PSYCHOLOGIST POCT-GLUCOSE METER Routine 01/17/2019 8:21 PM CLINICAL PSYCHOLOGIST POCT-GLUCOSE METER Routine 01/17/2019 6:17 PM CLINICAL PSYCHOLOGIST POCT-GLUCOSE METER Routine 01/17/2019 10:10 AM CLINICAL PSYCHOLOGIST POCT-GLUCOSE METER Routine 01/17/2019 5:14 AM CLINICAL PSYCHOLOGIST CBC W/PLT COUNT & AUTO Routine 01/17/2019 DIFFERENTIAL 5:09 AM CLINICAL PSYCHOLOGIST PHOSPHORUS Routine 01/17/2019 5:09 AM CLINICAL PSYCHOLOGIST MAGNESIUM Routine 01/17/2019 5:09 AM CLINICAL PSYCHOLOGIST CBC W/PLT COUNT & AUTO Routine 01/17/2019 DIFFERENTIAL 5:09 AM CLINICAL PSYCHOLOGIST CALCIUM, IONIZED Routine 01/17/2019 5:09 AM CLINICAL PSYCHOLOGIST BASIC METABOLIC PANEL (7) Routine 01/17/2019 5:09 AM CLINICAL PSYCHOLOGIST ARTERIAL DOPPLER LEG, STAT 01/17/2019 LEFT 12:56 AM CLINICAL PSYCHOLOGIST BLOOD CULTURE STAT 01/17/2019 12:17 AM CLINICAL PSYCHOLOGIST BLOOD CULTURE STAT 01/17/2019 12:17 AM CLINICAL PSYCHOLOGIST CBC W/PLT COUNT & AUTO STAT 01/16/2019 DIFFERENTIAL 9:21 PM CLINICAL PSYCHOLOGIST C-REACTIVE PROTEIN STAT 01/16/2019 9:21 PM CLINICAL PSYCHOLOGIST MAGNESIUM STAT 01/16/2019 9:21 PM CLINICAL PSYCHOLOGIST PT/APTT STAT 01/16/2019 9:21 PM CLINICAL PSYCHOLOGIST COMPREHENSIVE METABOLIC STAT 01/16/2019 PANEL 9:21 PM CLINICAL PSYCHOLOGIST CBC W/PLT COUNT & AUTO STAT 01/16/2019 DIFFERENTIAL 9:21 PM CLINICAL PSYCHOLOGIST XR FOOT LEFT 3 VIEW STAT 01/16/2019 6:22 PM CLINICAL PSYCHOLOGIST after 10/11/2018 Results * EKG-SCANNED (10/10/2019 11:41 [...] ABO O Pos SAFETRACE TX UNIT NUMBER [id number] SAFETRACE TX Status TX_TIMEINCHART SAFETRACE TX Blood Bank Product RED BLOOD CELLS SAFETRACE TX PRODUCT CODE [id number] SAFETRACE TX CROSSMATCH COMPATIBLE SAFETRACE [place] Specimen Other Performing Organization Address [facility] one Number [place] * POC-Glucose meter (10/07/2019 3:41 PM CDT) Only the most recent of 144 results within the time period is included. POC-Glucose Meter 174 (H)Comment: : TESTED AT 70 - 110 mg/dL [address] [address]: Golf Cart Repairer/Cook Sauce ID = [id number] for LAURA SHEETS Specimen Blood Performing Organization Address [facility] one [address] [facility] * Troponin I (10/07/2019 3:37 PM CDT) Only the most recent of 9 results within the time period is included. Troponin I 0.07 (H) 0.00 - 0.03 ng/mL [facility] Specimen Blood Narrative Performed At Troponin I (TnI) levels must be interpreted in the co ntext of the presenting symptoms and the clinical findings. Elevated TnI leve ls indicate myocardial [facility] damage, but are not specific for ischem ic heart disease. Elevated TnI levels are seen in patients with other cardiac con ditions (including myocarditis and congestive heart failure), and slight T nI elevations occur in patients with other conditions, including sepsis, андрей al failure, acidosis, acute neurological disease, and persistent tachyarrhythmia . Golf Cart Repairer ID - [email or web address] Performing Organization Address City/State/Zipcode Ph one Number [place] [address] [facility] * HEMODIALYSIS INPATIENT (10/07/2019 1:45 [...] Sarmad GUERRERO, RN II 7S6- Adult Dialysis [phone] * Hemoglobin and hematocrit (10/07/2019 1:34 PM CDT) Only the most recent of 14 results within the time period is included. Hemoglobin 7.2 (L) 13.7 - 17.5 GM/DL [facility] Hematocrit 21.2 (L) 40.1 - 51.0 % [facility] Specimen Blood Narrative Performed At Golf Cart Repairer ID - [id number] [facility] Performing Organization Address [facility] Ph one Number [address] 0 [phone] [address] * Transfuse Leuko-Red RBC (10/07/2019 12:31 PM CDT) Only the most recent of 24 results within the time period is included. * Phosphorus (10/07/2019 6:25 AM CDT) Only the most recent of 21 results within the time period is included. Phosphorus 3.2 2.3 - 4.7 mg/dL [facility] Specimen Blood Narrative Performed At Golf Cart Repairer ID - ELIZABETH W [facility] Performing Organization Address [facility] one Number [place] [address] [phone] [place] [address] * Magnesium (10/07/2019 6:25 AM CDT) Only the most recent of 20 results within the time period is included. Magnesium 2.1 1.6 - 2.6 mg/dL [facility] Specimen Blood Narrative Performed At Golf Cart Repairer ID - ELIZABETH W [facility] Performing Organization Address [facility] one Number [place] [address] 0 [phone] [address] * Basic Metabolic Panel (10/07/2019 6:25 AM CDT) Only the most recent of 38 results within the time period is included. Sodium 138 136 - 145 meq/L [facility] Potassium 3.7 3.5 - 5.1 meq/L [facility] Chloride 97 (L) 98 - 107 meq/L [facility] CO2 33 (H) 22 - 29 meq/L [facility] BUN 24 (H) 7 - 21 mg/dL [facility] Creatinine 6.20 (H) 0.57 - 1.25 mg/dL [facility] Glucose 124 (H) 70 - 105 mg/dL [facility] Calcium 9.3 8.4 - 10.2 mg/dL [facility] EGFR 9Comment: ESTIMATED GFR IS NOT mL/min/1.73 sq m ACCURATE CREATININE [facility] CLEARANCE IN PREDICTING GLOMERULAR FILTRATION RATE. ESTIMATED GFR IS NOT APPLICABLE FOR DIALYSIS PATIENTS. Specimen Blood Narrative Performed At Golf Cart Repairer ID - ELIZABETH Wiley [facility] Performing Organization Address City/State/Zipcode Ph one Number [place] [address] [facility] * CBC (Hemogram only) (10/07/2019 5:19 AM CDT) Only the most recent of 2 results within the time period is included. WBC 4.3 3.5 - 10.5 K/L [facility] RBC 1.96 (L) 4.63 - 6.08 M/L [facility] Hemoglobin 6.5 (L) 13.7 - 17.5 GM/DL [facility] Hematocrit 19.2 (L) 40.1 - 51.0 % [facility] MCV 98.0 (H) 79.0 - 92.2 fL [facility] MCH 33.2 (H) 25.7 - 32.2 pg [facility] MCHC 33.9 32.3 - 36.5 GM/DL [facility] RDW 17.5 (H) 11.6 - 14.4 % [facility] Platelets 139 (L) 150 - 450 K/CU MM [facility] MPV 9.8 9.4 - 12.4 fL [facility] nRBC 0 0 - 0 /100 WBC [facility] Specimen Blood Performing Organization Address City/State/Zipcode Ph one Number [facility] [address] [place], [place] [address] [facility] * SARS-CoV2/RT-PCR (Asymptomatic ONLY) (10/06/2019 11:37 PM CDT) Only the most recent of 2 results within the time period is included. SARS-COV2/RT-PCR Negative Not Detected, Negative, See external report for [facility] linked test SARS-COV-[address] [facility] JANY [facility] Specimen Other Narrative Performed At Negative result for this test determine s that SARS-CoV-2 RNA was not present in the specimen above the Limit of Detecti on (LOD).However, Negative results do [facility] not preclude SARS-CoV-2 infection and s [...] the Act. Fact Sheet for Healthcare Providers: https://www.[facility] [facility]/sites/default/files/product/documents/Fact_Sheet_HC_Provi czrc_Hzor_FSPX-ObN-5.pdf Fact Sheet for Healthcare Patients: https://www.[employer] [facility]/sites/default/files/product/documents/Fact_Sheet_Patients _Qqyg_BBLL-FfR-8.pdf Performing Laboratory: [place] [address] Performing Organization Address [facility] one [place] [address] [facility] * Iron, TIBC, % sat. (without ferritin) (10/06/2019 11:37 PM CDT) Only the most recent of 3 results within the time period is included. Iron 58.0 40.0 - 160.0 ug/dL [facility] TIBC 150 (L) 250 - 450 ug/dL [facility] Iron % Saturation 39 20 - 55 % [facility] Specimen Blood Narrative Performed At Golf Cart Repairer ID - ANTHONY Reddy [facility] Performing Organization Address [facility] one [place] [address] [facility] * Ferritin (10/06/2019 11:37 PM CDT) Only the most recent of 3 results within the time period is included. Ferritin 2,196.05 (H) 5.00 - 275.00 ng/mL [facility] Specimen Blood Narrative Performed At Golf Cart Repairer ID - ANTHONY Reddy [facility] Performing Organization Address [facility]/Zipcode Ph one Number [facility] [address] [place], [place] [address] [facility] * XR chest 1 view portable / bedside (10/06/2019 7:37 PM CDT) Only the most recent of 3 results within the time period is included. Specimen Narrative Performed At FINAL REPORT Path RIS Chest, 1 view. History: Abnormal lab, [...] Verified Date/Time: 10/06/2019 20:24:08 Performing Organization Address City/State/[facility] Ph one Number GE R[facility] * ECG 12 lead (10/06/2019 7:34 PM CDT) Only the most recent of 3 results within the time period is included. Specimen Narrative Performed At Ventricular Rate 80 BPM GE MUSE Atrial Rate 80 BPM P-R Interval 228 ms QRS Duration 98 ms Q-T Interval 386 ms QTC Calculation(Bazett) 445 ms P Lud[place] 48 degrees R Ludlow -26 degrees T [place] 53 degrees Sinus rhythm with 1st degree A-V block Poor R wave [id number] Jan 2019 When compared with ECG of 07-APR-2019 0 6:54, No significant change was found Confirmed by MD STANLEY YOCHAI ([id number] ) on 10/09/2019 6:35:43 AM Procedure Note Interface, External Ris In - 10/09/2019 6:35 AM CDT Ventricular Rate 80 BPM Atrial Rate 80 BPM P-R Interval 228 ms QRS Duration 98 ms Q-T Interval 386 ms QTC Calculation(Bazett) 445 ms P Lud[place] 48 degrees R Ludlow -26 degrees T [place] 53 degrees Sinus rhythm with 1st degree A-V block Poor R wave progression 02 Feb 2019 When compared with ECG of 07-APR-2019 06:54, No significant change was found Confirmed by MD LIZETH, SRIDEVI ([id number]) on 10/09/2019 6:35:43 AM Performing Organization Address [facility] Ph one Number GE MUSE * Type and screen, automated ([facility] and [facility] only) (10/06/2019 7:22 PM CDT) Only the most recent of 9 results within the time period is included. ABO/RH AUTOMATED (BEAKER) O POSITIVE [facility] Ab Scrn NEGATIVE [facility] Specimen Blood Performing Organization Address [facility] Ph one Number [address] [address] [facility] * CBC with platelet count + automated diff (10/06/2019 7:22 PM CDT) Only the most recent of 32 results within the time period is included. WBC 4.9 3.5 - 10.5 K/L [facility] RBC 1.60 (L) 4.63 - 6.08 M/L [facility] Hemoglobin 5.4 (LL) 13.7 - 17.5 GM/DL [facility] Hematocrit 16.3 (L) 40.1 - 51.0 % [facility] MCV 101.9 (H) 79.0 - 92.2 fL [facility] MCH 33.8 (H) 25.7 - 32.2 pg [facility] MCHC 33.1 32.3 - 36.5 GM/DL [facility] RDW 16.3 (H) 11.6 - 14.4 % [facility] Platelets 143 (L) 150 - 450 K/CU MM [facility] MPV 10.2 9.4 - 12.4 fL [facility] nRBC 0 0 - 0 /100 WBC [facility] % Neutros 85 % [facility] % Lymphs 10 % [facility] % Monos 4 % [facility] % Eos 1 % [facility] % Baso 0 % [facility] # Neutros 4.18 1.78 - 5.38 K/L [facility] # Lymphs 0.47 (L) 1.32 - 3.57 K/L [facility] # Monos 0.19 (L) 0.30 - 0.82 K/L [facility] # Eos 0.07 0.04 - 0.54 K/L [facility] # Baso 0.01 0.01 - 0.08 K/L [facility] Immature 0 0 - 1 % [facility] Granulocytes-Relative [facility] Specimen Blood Performing Organization Address City/State/Zipcode Ph one Number [place] [phone] [place], [place] [address] [facility] * ECG/EKG Interpretation [...] ABO O Pos SAFETRACE TX UNIT NUMBER [id number] SAFETRACE TX Status TX_TIMEINCHART SAFETRACE TX Blood Bank Product RED BLOOD CELLS SAFETRACE TX PRODUCT CODE [id number] SAFETRACE TX Unit ABO O Pos SAFETRACE TX UNIT NUMBER [id number] SAFETRACE TX Status WORK IN PROGRESS SAFETRACE TX Blood Bank Product RED BLOOD CELLS SAFETRACE [place] PRODUCT CODE [id number] SAFETRACE TX CROSSMATCH COMPATIBLE SAFETRACE TX CROSSMATCH COMPATIBLE SAFETRACE [place] Performing Organization Address City/State/[facility] Ph one Number [place] * HEMODIALYSIS INPATIENT (08/11/2019 11:37 PM CDT) Narrative Performed At Arlene Hays RN 08/11/2019 11:37 PM Patient is awake, alert and oriented X 4. Here to be dialyzed for 3.5 hours with UF goal of 2L. [facility] most updated labs are as follows: Lab [...] B12 484 213 - 816 pg/mL [facility] Folate 11.60 >=7.00 ng/mL [facility] Specimen Blood Narrative Performed At Golf Cart Repairer ID - REYNALDO Rodriguez [facility] Performing Organization Address [facility] Ph one Number [address] [facility] * Hepatitis B surface antigen (2019 4:14 PM CDT) Only the most recent of 4 results within the time period is included. HBsAg Screen Nonreactive Nonreactive [facility] Specimen Blood Narrative Performed At Specimen is considered negative for HBsAg. [facility] Performing Organization Address [facility] Ph one Number [place] [address] [facility] * Hemoglobin A1c (2019 4:57 AM CDT) Hemoglobin A1C 4.8 4.3 - 6.1 % [facility] Specimen Blood Performing Organization Address [facility] Ph one Number [place] [address] 0 [phone] [place] [address] * Hepatic function panel (2019 4:57 AM CDT) Protein, Total 6.3 6.0 - 8.3 gm/dL [facility] Albumin 3.8 3.5 - 5.0 g/dL [facility] Total Bilirubin 0.9 0.2 - 1.2 mg/dL [facility] Bilirubin, Direct 0.4 0.1 - 0.5 mg/dL [facility] Alkaline Phosphatase 66 40 - 150 U/L [facility] AST 14 5 - 34 U/L [facility] ALT 6 6 - 55 U/L [facility] Specimen Blood Narrative Performed At Golf Cart Repairer ID - ANTHONY M [facility] Performing Organization Address [facility] Ph one Number [address] 0 [phone] [place] [address] * Lipid panel (08/08/2019 8:22 AM CDT) Triglycerides 54 mg/dL [facility] Cholesterol 132 mg/dL [facility] HDL 52 mg/dL [facility] LDL Calculated 69 mg/dL [facility] Specimen Blood Narrative Performed At Triglyceride Reference Range: Low Risk <150 [facility] [id number] High Risk 200-499 Very High Risk>=500 Cholesterol Reference Range: Low Risk <200 [id number] High Risk>240 HDL Cholesterol Reference Range: Low Risk >=60 High Risk <40 LDL Cholesterol Reference Range: Optimal<100 Near [id number] Very High >=190 Golf Cart Repairer ID - BS Performing Organization Address [facility] Ph one Number [address] 0 [phone] [place] [address] * Hemoglobin (08/03/2019 9:55 AM CDT) Hemoglobin 9.0 (L) 13.7 - 17.5 GM/DL [facility] Specimen Blood Narrative Performed At Golf Cart Repairer ID - [id number] [facility] Performing Organization Address City/[facility] Ph one Number [address] 7[address] 0 [phone] [place] [address] * Potassium (08/03/2019 9:55 AM CDT) Potassium 4.3 3.5 - 5.1 meq/L [facility] Specimen Blood Narrative Performed At Golf Cart Repairer ID - AAHAMID [facility] Performing Organization Address City/[facility] Ph one Number [address] 7[address] [facility] * RHYTHM STRIP - SCAN (04/11/2019 3:50 PM CLINICAL PSYCHOLOGIST) Only the most recent of 6 results within the time period is included. Narrative Performed At This result has an attachment that is n ot available. * CARDIAC CATH REPORT - SCAN (04/10/2019 1:42 PM CLINICAL PSYCHOLOGIST) Narrative Performed At This result has an attachment that is n ot available. * POC ACTIVATED CLOTTING TIME (04/07/2019 11:06 AM CLINICAL PSYCHOLOGIST) Only the most recent of 6 results within the time period is included. Activated Clotting Time 257Comment: Reference Range: sec 74-137 seconds, [facility] Baseline/TESTED AT [address] [address] Specimen Blood Performing Organization Address [facility] one Number [address] 7703 [facility] * Vein Mapping Legs Bilateral (03/11/2019 10:25 AM CLINICAL PSYCHOLOGIST) Ejection Fraction [facility] ECHO HEARTLAB [facility] CPACS Specimen Impressions Performed At Right Impression [facility] ECHO HEARTLAB 1. There is no deep [...] Vein Mapping [facility] Demographics [facility] Patient Name YASSINE CARLSON Date of Study 03/11/2019 DAVEY BRYSON JR. [id number] Age 58 Visit Number [id number] GenderMale Accession Number [id number] Date of 1960 [facility] Mitchell Watkins Number [id number] Physician SonographShayna Christianson, Physician Procedure Type of [...] External Ris In - 03/11/2019 3:10 PM CLINICAL PSYCHOLOGIST PV LAB - Lower Extremities Vein Mapping Demographics Patient Name YASSINE CARLSON Date of Study 03/11/2019 ALICE ABDUL Age 58 Visit Number [id number] Gender Male Accession Number [id number] Date of 1960 Referring Serg De Los Santos MD Room Number [address]/Medical Interpreter Edu Alas Interpreting Nicole Christianson Physician Procedure [...] + + + + Performing Organization Address City/[facility] Ph one Number [facility] jellyfish HEARTLAB TriparazziCKESSON CPACS * Blood Culture - Routine (Left Venipuncture) (03/10/2019 8:33 AM CLINICAL PSYCHOLOGIST) Only the most recent of 5 results within the time period is included. Result No growth in 5 days [facility] Specimen Blood Performing Organization Address City/State/Zipcode Ph one Number [facility] [address] [address] MEDICAL CENTER * Arterial doppler legs bilateral (03/09/2019 6:51 PM CLINICAL PSYCHOLOGIST) Ejection Fraction [facility] ECHO HEARTLAB [facility] Specimen Impressions Performed [...] + + + + +- + !Prox CNC SERVICE TECHNICIAN ! !87!!Monopha sic! !102 ! !Biph asic ! + + + + + + + + +- + !Mid CNC SERVICE TECHNICIAN ! !143 !!B iphasic! !113 ! !Biphasic ! + + + + + + + + +- + !Dist CNC SERVICE TECHNICIAN ! !95.6!!Biphasic ! !! !Absent ! + [...] At LAB - Lower Extremity Arterial Duplex [facility] ECHO H EARTLAB Demographics [facility] Patient Name YASSINE CARLSON Date of Study 03/09/2019 DAVEY BRYSON JR. [id number] Age 58 Visit Number [id number] GenderMale Accession Number [id number] Date of 1960 [facility] Mitchell Watkins Number [id number] Physician Neeraj [...] External Ris In - 03/10/2019 8:39 AM CLINICAL PSYCHOLOGIST PV LAB - Lower Extremity Arterial Duplex Demographics Patient Name YASSINE CARLSON Date of Study 03/09/2019 ALICE ABDUL Age 58 Visit Number [id number] Gender Male Accession Number [id number] Date of 1960 Referring Serg De Los Santos MD Room Number [address]/Medical Interpreter Zuleyma Staley RVT Interpreting Hailee Parisi RVT [...] + + + + + + !Prox CNC SERVICE TECHNICIAN ! !87 ! !Monophasic ! !102 ! !Biphasic ! + + + + + + + + + + !Mid CNC SERVICE TECHNICIAN ! !143 ! !Biphasic ! !113 ! !Biphasic ! + + + + + + + + + + !Dist CNC SERVICE TECHNICIAN ! !95.6 ! !Biphasic ! ! ! [...] Peroneal ! + + Performing Organization Address [facility] Ph one Number SLE ECHO HEARTLAB [facility] CPACS * Prothrombin time/INR (03/09/2019 2:56 PM CLINICAL PSYCHOLOGIST) Only the most recent of 2 results within the time period is included. Protime 16.0 (H) 11.9 - 14.2 seconds [facility] INR 1.3 <=5.9 [facility] Specimen Blood Narrative Performed At Effective 07/27/2018: PT Reference Range Change New: 11.9-14.2Previous: 11.7-14.7 [facility] MEDICAL CE NTER RECOMMENDED COUMADIN/WARFARIN INR THERA PY RANGES STANDARD DOSE: 2.0-3.0Includes: PRO PHYLAXIS for venous thrombosis, systemic embolization; TREATMENT for venous thro mbosis and/or pulmonary embolus. HIGH RISK: Target INR is 2.5-3.5 for pa tients wiht mechanical heart valves. Performing Organization Address [facility] Ph one Number [place] [address] MEDICAL CENTER * PT/aPTT (03/07/2019 10:27 PM CLINICAL PSYCHOLOGIST) Only the most recent of 3 results within the time period is included. Protime 15.2 (H) 11.9 - 14.2 seconds [facility] INR 1.2 <=5.9 [facility] PTT 43.2 (H) 22.5 - 36.0 seconds [facility] Specimen Blood Narrative Performed At Effective 07/27/2018: PT Reference Range Change New: 11.9-14.2Previous: 11.7-14.7 [facility] MEDICAL CE NTER RECOMMENDED COUMADIN/WARFARIN INR THERA PY RANGES STANDARD DOSE: 2.0-3.0Includes: PRO PHYLAXIS for venous thrombosis, systemic embolization; TREATMENT for venous thro mbosis and/or pulmonary embolus. HIGH RISK: Target INR is 2.5-3.5 for pa tients wiht mechanical heart valves. Performing Organization Address City/State/Zipcode Ph one Number [facility] [address] [place], [place] [address] [facility] * Tissue Exam (02/23/2019 8:18 AM CLINICAL PSYCHOLOGIST) Only the most recent of 3 results within the time period is included. Case Report Surgical Pathology [place] [place] Report LABORATORY Case: [id number] Authorizing Provider:Arron Carreno MD Collected: 02/23/2019817 Ordering Location: [address] Med/SurgRe ceived: 02/23/2019 0957 Pathologist: Sana [...] MALIGNANCY SEEN Signing Pathologist Direct Phone Line: [phone] COMMENT The biopsy consists of [place] multiple fragments of LABORATORY villoglandular mucosa with extensive ulceration, cribriforming of glands and high-grade nuclei. Due to the fragmentation of the biopsy the possiblitity of an underlying carcinoma cannot be entirely excluded. CPT Code(s) 88371 x2 [facility]OR[facility] CLINICAL HISTORY Bleeding [facility]ORAT[facility] SPECIMEN SOURCE A. Lower polyp, biopsy, [...] into B1. MG/pl MICROSCOPIC DESCRIPTION A-B: Performed [facility] Gross assessment was [facility] performed at [facility], Department of LABORATORY Pathology, [address] [place] [address], Technical component was [facility] performed at [facility] Department of LABORATORY Pathology, [address] [place] [address], Professional component [facility] was performed at [facility], Department of LABORATORY Pathology, [address] [place] [address], Specimen Tissue Tissue - Esophageal structure (body structure) Narrative Performed At This result has an attachment that is n ot available. Performing Organization Address City/State/[facility] Ph one Number [facility] [address] [place] [address] * Hepatitis B surface antibody (02/22/2019 9:56 AM CLINICAL PSYCHOLOGIST) Hep B S Ab 31.5 (H) <8.0 mIU/mL [facility] Specimen Blood Performing Organization Address City/State/Zipcode Ph one [address] 7703 [facility] * transcutaneous pacing (02/20/2019 3:25 AM CLINICAL PSYCHOLOGIST) Narrative Performed At Ludwig Prince MD 02/20/2019 [...] None * Procedural sedation (02/20/2019 3:25 AM CLINICAL PSYCHOLOGIST) Narrative Performed At Ludwig Prince MD 02/20/2019 [...] cannula Sedation:Ketamine Intra-procedure monitoring:Bloo d pressure monitoring, hall monitor, continuous pulse oximetry, frequent LOC assessments and frequent vital sign checks Intra-procedure events: none Post Sedation Evaluation: Respiration: airway patent and returned to pre-procedure baselinsMental Status: re turned to pre-procedure baseline. Cardiovascular Function: returned to pr e-procedure baseline and post-procedural hall monitor reviewe d The following have been reviewed and fo und to be within acceptable parameters: RR, HR, pulse ox, BP and te mp Pain Scale: 0/10 Nausea/Vomiting: no Hydration status: wnl Temperature within expected parameters :Temperature within defined limits @SLHSEDMULTIPLEVITALS@ * aPTT (02/20/2019 2:51 AM CLINICAL PSYCHOLOGIST) PTT 29.2 23.0 - 35.0 sec [facility] Specimen Blood Narrative Performed At Final Information (Auto Output) [facility] Performing Organization Address City/[facility] Ph one Number [facility] [address] [place] [address] * B-type natriuretic factor (BNP) (02/20/2019 2:51 AM CLINICAL PSYCHOLOGIST) Only the most recent of 2 results within the time period is included. BNP 1,043 (H) 0 - 100 pg/mL [facility] Specimen Blood Performing Organization Address [facility] Ph one Number [facility] [address] [place] [id number] * HEMODIALYSIS INPATIENT (02/08/2019 12:14 PM CLINICAL PSYCHOLOGIST) Narrative Performed At Daisy Arango RN 02/08/2019 [...] accordingly. * HEMODIALYSIS INPATIENT (02/06/2019 6:10 PM CLINICAL PSYCHOLOGIST) Narrative Performed At Richie Damico RN 02/06/2019 [...] 98% * Antibody identification (02/03/2019 4:05 PM CLINICAL PSYCHOLOGIST) ANTIBODY ID (CATRINA) Anti-E [place] UNID IgG Antibody Consult SIGNED OUTComment: Anti E SAFETRACE T X causes RBC injury, transfuse E negative RBCs.An IgG antibody of undetermined specificity is detected, transfuse crossmatch compatible RBCs.Electronic Signature: Karla Hirsch M.D. Specimen Performing Organization Address [facility] Ph one Number [place] * Lactic acid, venous (02/03/2019 8:54 AM CLINICAL PSYCHOLOGIST) Lactate, Venous 0.2 (L) 0.5 - 2.2 mmol/L [facility] Specimen Blood Performing Organization Address [facility] Ph one Number [address] 3538 [facility] * HIV-1 Antigen with HIV-1/2 Antibody (02/03/2019 12:25 AM CLINICAL PSYCHOLOGIST) HIV-1 Antigen with HIV Nonreactive Nonreactive 1&2 Antibody [facility] Specimen Blood Performing Organization Address [facility] one [address] 770 0 [phone] [place] [address] * Hepatitis B Panel (02/03/2019 12:25 AM CLINICAL PSYCHOLOGIST) Hep B Core Total Ab Nonreactive Nonreactive [facility] Hep B S Ab 16.1 (H) <8.0 mIU/mL [facility] HBsAg Screen Nonreactive Nonreactive [facility] Specimen Blood Performing Organization Address [facility] one [address] 770 0 [phone] [address] * Hepatitis C antibody (02/03/2019 12:25 AM CLINICAL PSYCHOLOGIST) Hepatitis C Ab Nonreactive Nonreactive [facility] Specimen Blood Performing Organization Address [facility] one [address] [place] [address] [phone] [place] [address] * Direct [facility]HG (KAYLENE)/Direct Kayden (02/02/2019 7:57 PM CLINICAL PSYCHOLOGIST) Direct AHG-IGG POSITIVEComment: Microscopic [facility] positive by [facility] Direct AHG-C3B, C3D NEGATVIEComment: by [facility] Specimen Blood Performing Organization Address [facility] one [address] [address] [facility] * CARDIAC CATH REPORT - SCAN (01/31/2019 8:32 AM CLINICAL PSYCHOLOGIST) Narrative Performed At This result has an attachment that is n ot available. * HEMODIALYSIS INPATIENT (01/25/2019 8:35 PM CLINICAL PSYCHOLOGIST) Narrative Performed At Lionel Leyva RN 8:35 [...] * Vancomycin level, random (01/20/2019 4:09 AM CLINICAL PSYCHOLOGIST) Only the most recent of 3 results within the time period is included. Vancomycin Rm 15.1 ug/mL [facility] Specimen Blood Narrative Performed At Reference Range: No Normals [facility] Performing Organization Address [facility] Ph one Number [place] [address] [facility] * Calcium, Ionized (01/19/2019 3:18 AM CLINICAL PSYCHOLOGIST) Only the most recent of 3 results within the time period is included. Calcium, Ion 1.11 (L) 1.12 - 1.27 mmol/L [facility] pH, Blood 7.42 [facility] Specimen Blood Performing Organization Address [facility] Ph one Number [place] [address] [facility] * HEMODIALYSIS INPATIENT (01/18/2019 10:32 PM CLINICAL PSYCHOLOGIST) Narrative Performed At Shanell Pacheco RN 01/18/2019 [...] 03/06/2014 * Anaerobic culture (01/18/2019 9:17 AM CLINICAL PSYCHOLOGIST) Only the most recent of 2 results within the time period is included. Result 4+ Bacteroides ovatus (A) [facility] Result 3+ Prevotella species [facility] EALT (A)Comment: * - Prevotella [facility] bergensis Result 4+ Same organism has been [facility] isolated from culture(s) of [facility] the same body site and collection date. Repeat identification performed only after consultation with the clinical microbiology laboratory. (A) Comment: Refer to previous culture of * - Finegoldia magna Specimen Tissue Performing Organization Address City/State/Zipcode Ph one Number [address] [address] [facility] * Surgically obtained culture + gram stain (01/18/2019 9:17 AM CLINICAL PSYCHOLOGIST) Only the most recent of 2 results within the time period is included. Result 3+ Same organism has been [facility] isolated from cultures(s) of [facility] the same body site and collection date. Repeat identification and susceptibility testing performed only after consultation with the clinical microbiology laboratory. (A) Comment: Refer to previous culture of Enterococcus species Result <1+ Same organism has been [facility] isolated from cultures(s) of [facility] the same body site and collection date. Repeat identification and susceptibility testing performed only after consultation with the clinical microbiology laboratory. (A) Comment: Refer to previous culture of Pseudomonas aeruginosa Gram Stain Result No White blood cells seen [facility] Gram Stain Result No organisms seen [facility] HEALT H [facility] Specimen Tissue Performing Organization Address City/State/Zipcode Ph one Number [facility] [address] [place], [place] [address] MEDICAL CENTER * Arterial doppler leg, left (01/17/2019 12:56 AM CLINICAL PSYCHOLOGIST) [facility]CHO HEARTLAB [facility] Specimen Impressions Performed At Right Impression [facility] 1. The posterior tibial and dorsalis pe [...] + + + + +--- + !Prox CNC SERVICE TECHNICIAN ! !65.2 !! ! + + + + +--- + !Mid CNC SERVICE TECHNICIAN ! !67.6 !! ! + + + + +--- + !Dist CNC SERVICE TECHNICIAN ! !80.1 !! ! + + + [...] Duplex SLE ECHO H EARTLAB Demographics [facility] Patient Name YASSINE CARLSON Date of Study 01/17/2019 DAVEY BRYSON JR. [id number] Age 58 Visit Number [id number] GenderMale Accession Number [id number] Date of 1960 ReferringTerrence Willett Room Number [...] External Ris In - 01/17/2019 10:25 AM CLINICAL PSYCHOLOGIST PV LAB - Lower Extremity Arterial Duplex Demographics Patient Name YASSINE CARLSON Date of Study 01/17/2019 ALICE ABDUL Age 58 Visit Number [id number] Gender Male Accession Number [id number] Date of 1960 Referring Terrence Willett Room Number ED7 Physician Myah MD Certified Court/Medical Interpreter Reynaldo Broderick Interpreting Physician MARYCRUZ Parisi Procedure [...] + + + + + + !Prox CNC SERVICE TECHNICIAN ! !65.2 ! ! ! + + + + + + !Mid CNC SERVICE TECHNICIAN ! !67.6 ! ! ! + + + + + + !Dist CNC SERVICE TECHNICIAN ! !80.1 ! ! ! + + [...] + + + + Performing Organization Address City/[facility]/Zipcode Ph one Number [facility] ECHO HEARTLAB [facility] * C-Reactive Protein (01/16/2019 9:21 PM CLINICAL PSYCHOLOGIST) CRP 10.00 (H) 0.00 - 0.50 mg/dL [facility] Specimen Blood Performing Organization Address City/[facility] Ph one Number [place] [phone] [facility] * Comprehensive metabolic panel (01/16/2019 9:21 PM CLINICAL PSYCHOLOGIST) Protein, Total 7.0 6.0 - 8.3 gm/dL [facility] Albumin 3.8 3.5 - 5.0 g/dL [facility] Alkaline Phosphatase 74 40 - 150 U/L [facility] Total Bilirubin 0.5 0.2 - 1.2 mg/dL [facility] Sodium 138 136 - 145 meq/L [facility] Potassium 3.9 3.5 - 5.1 meq/L [facility] Chloride 97 (L) 98 - 107 meq/L [facility] CO2 32 (H) 22 - 29 meq/L [facility] BUN 23 (H) 7 - 21 mg/dL [facility] Creatinine 5.79 (H) 0.57 - 1.25 mg/dL [facility] Glucose 122 (H) 70 - 105 mg/dL [facility] Calcium 9.3 8.4 - 10.2 mg/dL [facility] AST 13 5 - 34 U/L [facility] ALT 11 6 - 55 U/L [facility] EGFR 10Comment: ESTIMATED GFR IS mL/min/1.73 sq m [facility] NOT ACCURATE CREATININE [facility] CENTER CLEARANCE IN PREDICTING GLOMERULAR FILTRATION RATE. ESTIMATED GFR IS NOT APPLICABLE FOR DIALYSIS PATIENTS. Specimen Blood Performing Organization Address City/State/Zipcode Ph one Number [facility] [address] [place], [place] [address] MED[facility]ENTER after 10/11/2018 Insurance Payer Benefit Subscriber ID Type Phone Address Plan / Group MEDICARE MEDICARE A xxxxxxxxxxx Medicare B MEDICAID - MEDICAID MGD MEDICAID xxxxxxxxx Medica id CARE [employer] Non-Contra cted CDC REVIEW CDC REVIEW xxxxx[place] [address] [place] [address] [phone] Advance Directives For more information, please contact: [facility] [address] [place], [place] [id number] Date Inactivated Comments Code Status Date Activated [...]
--- OUTSIDE RECORDS SUMMARY | 2019-10-12 21:41 | XMS REPORT | Continuity of Care Document ---
Author Author [facility] t Organization [facility] Address [address] [place] [address] Phone Unavailable Care Team Providers Care Senior Storage Engineer Name Role Phone ANDI JAIN MD PCP Bernabe Portillo Attphys Unavailable Stacey JOEL, Michael Blount Attphys Hiren JOEL, Placido Attphys Erin JOEL, Neha Attphys Leroy JOEL, Giovanny Alfonso Attphys [phone] PLACIDO MARADIAGA Attphys Unavailable Steve JOEL, Natan Watkins Attphys [phone] Moses ALLEN, Miladys Rea Attphys [phone] Olive Ramirez DPM Attphys Janice Bautista MD Attphys Skye JOEL, Elsei Powers Attphys Chelsey JOEL, Go Ruth Attphys OLIVE RAMIREZ Attphys Unavailable Moses ALLEN, Álvaro Attphys Olive Ramirez DPM Attphys Steve JOEL, Natan Watkins Attphys [phone] Brian AA, Сергей Del Rosario Attphys NATAN WILSON Attphys Unavailable [facility], Kailey Bonilla Attphys [phone] KESHIA SEGUNDO Attphys Unavailable Ratna JOEL, Keshia Martinez Attphys Dahlia JOEL, Cathi Sánchez Attphys [phone] Filiberto JOEL, S Jesi Attphys Bryce JOLE, Katelynn Attphys Jw JOEL, Jian Guevara Attphys JENNIFER, KULDEEP-KENNEDY Attphys Unavailable Jennifer JOEL, Ludwig Attphys Graham JOEL, Sharad Jose Attphys Tu DO, Stevens Norah Attphys Ev JOEL, Arron Attphys Harvey JOEL, Nola. Trijuanito Attphys Jocelyn JOEL, Justus Rut Attphys [phone] Laura Read MD, Damon Jurado Attphys [phone] HARVEY, B. TRIEN Attphys Unavailable ZAYNAB PADILLA Attphys Unavailable Myah JOEL, Zaynab Ocampo Attphys Malia JOEL, Sangeetha Boswell Attphys Shania JOEL, Lynette Attphys [phone] Avery JOEL, Brooks Tavera Attphys Casey JOEL, Keshia Gates Attphys [phone] Moses JOEL, Maday Lin Attphys [phone] VIC, Mdoesta LAIRD Attphys Unavailable CRANE, SOUHEIL Attphys Unavailable ORAHMIKE, ANDI Attphys Unavailable GIOVANNY GARIBAY Admphys Unavailable Janice BAUTISTA TOBI Admphys Unavailable STEVE NATAN ROLAND Admphys Unavailable SUTARIA, S JESI Admphys Unavailable JAFARSHARAD JOSE Admphys Unavailable GADICHERLA, MURALINATH RUT Admphys Unavailable JEGAPRAGASAN, MITHULAN Admphys Unavailable Payers Payer Name Policy Type Policy Number Effective Date Expiration Date S mai MEDICAREMEDICARE A BxxxxxxxxxxxMedicare xxxxxxxxxxx [facility] MEDICAID - MEDICAID [place] [id number] xxMedicaid Non-Contracted xxxxxxxxx [facility] REVIEWCDC REVIEWxxxxxxxx[place] [address] x xxxxxxx [facility] [id number] 2013 00:00:00 [facility] Medicare A & B [id number] 2011 00:00:00 [facility] Problems Condition Name Condition Details Condition Category Status Onset Date Resolution Date Last Treatment Date Treating Clinician Comments Source ESRD (end stage renal disease) ESRD (end stage renal disease) Disea se Active 2019-10-06 00:00:00 [facility] Subacute osteomyelitis of left ankle Subacute osteomyelitis of left ankle Disease Active 2019-08-14 00:00:00 [facility] Heel ulcer Heel ulcer Disease Active 2019-08-08 00:00:00 [facility] Wound, open, foot Wound, open, foot Disease Active 2019-08-08 00:00:00 [facility] Non healing left heel wound Non healing left heel wound Disease Active 2019-08-08 00:00:00 [facility] PAD (peripheral artery disease) PAD (peripheral artery disease) Dis ease Active 2019-04-07 00:00:00 [facility] Ulcer of heel, left, with unspecified severity Ulcer o f heel, left, with unspecified severity Disease Active 2019-03-08 00:00:00 [facility] Hyperkalemia Hyperkalemia Disease Active 2019-02-20 00:00:00 [facility] Symptomatic bradycardia Symptomatic bradycardia Disease Active 2019-02-20 00:00:00 [facility] Gastrointestinal hemorrhage, unspecified gastrointesti nal hemorrhage type Gastrointestinal hemorrhage, unspecified gastrointestinal hemorrhage type Disease Active 2019-02-20 00:00:00 Overv iew: Added automatically from request for surgery [id number] [facility] Type II or unspecified type diabetes rama litus with peripheral circulatory disorders, not stated as uncontrolled(250.70) Type II or unspecified type diabetes mellitus with peripheral circulatory disorders, not stated as uncontrolled(250.70) Disease Active 2019-01-20 00:00:00 [facility] Type 2 diabetes mellitus with left diabetic foot infec tion Type 2 diabetes mellitus with left diabetic foot infection Disease Active 2019-01-20 00:00:00 [facility] Non-healing wound of left heel Non-healing wound of left heel Disea se Active 2019-01-20 00:00:00 [facility] Anemia due to chronic kidney disease Anemia due to chronic k idney disease Disease Active 2019-01-20 00:00:00 [facility] Osteoarthritis of left foot Osteoarthritis of left foot Disease Active 2019-01-16 00:00:00 [facility] HLD (hyperlipidemia) HLD (hyperlipidemia) Disease Active 00:00:00 [facility] Hyperparathyroidism Hyperparathyroidism Disease [facility] 2015[facility]03[facility] dialysis ESRD (end s tage renal disease) on dialysis Disease Active 2014-06-26 00:00:00 Last Assessment & Plan: Continue HD per his court manager's schedule. [facility] Pre-transplant evaluation for chronic kidney disease P re-transplant evaluation for chronic kidney disease Disease Active 2014-06-26 00:00:00 Last Assessment & Plan: Chart reviewed, including cardiac cath with runoff. There is no evidence of vascular disease that would preclude transplant. From a surgical perspective, he is a good candidate and OK to actively list. [facility] Diabetes mellitus Diabetes mellitus Disease Active 2014-06-26 00:00:00 Last Assessment & Plan: Continue tight glucose control with current insulin therapy. [facility] Hypertension Hypertension Disease Active 2014-06-26 00:00:00 Last Assessment & Plan: Continue antihypertensives as prescribed. [facility] Chronic diastolic heart failure, NYHA class 1 Chronic diastolic heart failure, NYHA class 1 Disease Active 2011-04-23 00:00:00 [facility] Obstructive sleep apnea Obstructive sleep apnea Disease Active 2011-02-25 00:00:00 [facility] Abnormal Liver Function Test A bnormal Liver Function Test Active 03/25/2012 [facility] Problem Active 2012-03-25 2 3:17:42 [facility] Type 2 Diabetes Mellitus Type 2 Diabetes Mellitus Active 03/25/2012 [facility] Problem Active 2012-03-25 23:17: 42 [facility] End Stage Renal Disease End Stage Renal Disease Active 03/25/2012 on dialysis M-W-F [facility] Problem Active 2 23:17:42 [facility] Hypertension Hype rtension Active 03/25/2012 [facility] Problem Active 2012-03-25 23:17:42 D[facility] Otitis Externa Otit is Externa Active 03/25/2012 [facility] Problem Active 2012-03-25 23:17:42 [facility] Joint Pain, Localized In The Hip Joint Pain, Localized In The Hip Active 03/25/2012 [facility] Problem Active 2012-03-25 23:17:42 [facility] ESRD on hemodialysis ESRD on hemodialysis Disease Active [facility] History of Past Illness Condition Name Condition Details Condition Category Status Onset Date Resolution Date Last Treatment Date Treating Clinician Comments Source Symptomatic anemia Symptomatic anemia Disease Resolved 2019-01-0 5 00:00:00 2019-10-07 00:00:00 2019-10-07 04:44:31 [facility] Allergies, Adverse Reactions, Alerts Allergy Name Allergy Type Status Severity Reaction(s) Onset Date Inacti ve Date Treating Clinician Comments Source No Known Drug Allergies No Known Drug Allergies Active [facility] Family History Family Member Diagnosis Comments Start Date Stop Date Source Natural father Diabetes [facility] Natural father Stroke [facility] Maternal grandmother Diabetes [facility] Maternal grandmother Kidney failure [facility] Natural mother Hypertension [facility] Unknown Family Member Family History 2012-01-13 18:33:51 2 18:33:51 [facility] Social History Social Habit Start Date Stop Date Quantity Comments Source Sex Assigned At [facility] Tobacco Comment 2014-03-06 00:00:00 2014-03-06 00:00:00 Quit 2009 [facility] Social History 2012-03-25 23:17:42 2012-03-25 23:17:42 [facility] Smoking Status Start Date Stop Date Source Former smoker 2019-08-08 00:00:00 2019-08-08 00:00:00 [facility] Medications Ordered Medication Name Filled Medication Name Start Date Stop Da te Current Medication? Ordering Clinician Indication Dosage Frequency Signature (SIG) Comments Components Source lisinopriL (PRINIVIL,ZESTRIL) 10 MG tablet 2019-10-07 00:00:00 Yes 10mg QD Take 1 tablet (10 mg total) by mouth sherie ly Take as directed by your dry cans back tender. [facility] carvediloL (COREG) 25 MG tablet 2019-10-07 00:00:00 23:59:00 Yes 25mg Q.5D Take 1 tablet (25 mg total) by mouth 2 (two) times daily for 90 days Takes as your dry cans back tender recommends. [facility] VELPHORO 500 mg Chew 2019-09-20 00:00:00 Yes CRUSH OR CHEW AND SWALLOW 3 TABLETS 3 TIMES A DAY WITH MEALS [facility] lisinopriL (PRINIVIL,ZESTRIL) 10 MG tablet 09-18 00:00:00 2019-10-07 00:00:00 No 10mg QD Take 10 mg by mouth daily. [facility] atorvastatin (LIPITOR) 40 MG tablet 2019-08-14 00:00:0 0 2019-11-12 23:59:00 Yes 40mg QD Take 1 tablet (40 mg total) by mouth nig htly for 90 days. [facility] lanthanum (FOSRENOL) 1000 MG chewable tablet 00:00:00 2019-11-12 23:59:00 Yes 1000mg Take 1 tablet (1,000 mg total) by mouth 2 (two) times daily with breakfast and dinner for 90 days. [facility] carvediloL (COREG) 25 MG tablet 2019-08-14 00:00:00 00:00:00 No 37.5mg Q.5D Take 1.5 tablets (37 .5 mg total) by mouth 2 (two) times daily for 90 days. [facility] amLODIPine (NORVASC) 10 MG tablet 2019-08-14 00:00:00 2019 00:00:00 No 10mg QD Take 1 tablet (10 mg total) by mouth warren ry evening. [facility] polyethylene glycol (GLYCOLAX) 17 gram/dose powder 2019-08-14 00:00:00 2019-09-13 23:59:00 No 17g QD Take 17 g by mouth d aily for 30 days. [facility] amoxicillin-clavulanate (AUGMENTIN) 500-125 mg per tablet 2019-08-14 00:00:00 2019-08-24 23:59:00 No 1{tbl} QD Take 1 tablet by mouth daily for 10 days Take DURING or AFTER dialysis on dialysis days.. [facility] oxyCODONE-acetaminophen (PERCOCET) 5-325 mg per tablet 2019-08-14 00:00:00 2019-08-24 23:59:00 No 1{tbl} Take 1 tablet by mouth every 4 (four) hours as needed for up to 10 days. Max Daily Amount: 6 tablets [facility] amoxicillin-clavulanate (AUGMENTIN) 500-125 mg per tablet 2019-08-13 00:00:00 2019-08-14 00:00:00 No 1{tbl} QD Take 1 tablet by mouth daily for 10 days Take DURING or AFTER dialysis on dialysis days.. [facility] amoxicillin-clavulanate (AUGMENTIN) 500-125 mg per tablet 2019-08-13 00:00:2019-08-13 00:00:00 No 1{tbl} Q.5D Take 1 tablet by mouth 2 (two) times daily for 10 days. [facility] carvedilol (COREG) 25 MG tablet 2019-08-11 07:40:49 00:00:00 No 25mg Q.[id number] Take 25 mg by mouth 3 (three) times daily . [facility] amLODIPine (NORVASC) 5 MG tablet 2019-08-11 07:40:49 2019-07 00:00:00 No 10mg Q.5D Take 10 mg by mouth 2 (two) times daily . [facility] diphenhydrAMINE (BENADRYL) 25 mg tablet 07:40:49 2019-08-11 00:00:00 No 50mg Take 50 mg by mouth every night as needed for Sleep . [facility] sucroferric oxyhydroxide (VELPHORO ORAL) 2019-07 07:40:2019-08-11 00:00:00 No 1000mg Take 1,000 mg by mouth 3 (three) times daily with meals. [facility] traMADoL (ULTRAM) 50 mg tablet 2019-08-11 07:40:2019-08-11 00 :00:00 No 50mg Take 50 mg by mouth every 6 (six) hours as needed for Pain. [facility] insulin glargine (LANTUS U-100 INSULIN) 100 unit/mL injectio n 2019-08-11 00:00:00 Yes 5U QD Inject 5 U nits subcutaneously every morning If morning blood sugar is less than 110 mg/dL, give yourself 3 units of lantus instead.. [facility] amLODIPine (NORVASC) 10 MG tablet 2019-08-11 00:00:00 2019 00:00:00 No 10mg QD Take 1 tablet (10 mg total) by mouth warren ry evening. [facility] carvediloL (COREG) 25 MG tablet 2019-08-11 00:00: 00:00:00 No 37.5mg Q.5D Take 1.5 tablets (37 .5 mg total) by mouth 2 (two) times daily for 90 days. [facility] lanthanum (FOSRENOL) 1000 MG chewable tablet 00:00:00 2019-08-14 00:00:00 No 1000mg Take 1 tablet (1,000 mg total) by mouth 2 (two) times daily with breakfast and dinner for 90 days. [facility] atorvastatin (LIPITOR) 40 MG tablet 2019-08-11 00:00:0 0 2019-08-14 00:00:00 No 40mg QD Take 1 tablet (40 mg total) by mouth nig htly for 90 days. [facility] polyethylene glycol (GLYCOLAX) 17 gram/dose powder 2019-08-11 00:00:00 2019-08-14 00:00:00 No 17g QD Take 17 g by mouth d aily for 30 days. [facility] amoxicillin-clavulanate (AUGMENTIN) 875-125 mg per tablet 2019-04-08 00:00:00 2019-04-18 23:59:00 No 1{tbl} Take 1 tablet by mouth every 12 (twelve) hours for 10 days. [facility] acetaminophen (TYLENOL) 500 MG tablet 2019-04-08 00:00 :00 2019-04-18 23:59:00 No 500mg Take 1 tablet ( 500 mg total) by mouth every 6 (six) hours as needed for Pain for up to 10 days. [facility] traMADol (ULTRAM) 50 mg tablet 2019-04-08 00:00:00 2019-04-18 23 :59:00 No 50mg Take 1 tablet (50 mg total) by mouth every 6 (six) hours as needed for Pain for up to 10 days. Max Daily Amount: 200 mg [facility] traMADol (ULTRAM) 50 mg tablet 2019-04-08 00:00:00 2019-04-08 00 :00:00 No 50mg Take 1 tablet (50 mg total) by mouth every 6 (six) hours as needed for Pain for up to 10 days. Max Daily Amount: 200 mg [facility] amoxicillin-clavulanate (AUGMENTIN) 500-125 mg per tablet 2019-03-13 00:00:00 2019-03-20 23:59:00 No 1{tbl} QD Take 1 tablet by mouth daily for 7 days Take after dialysis on dialysis days.. [facility] HYDROcodone-acetaminophen (NORCO 10-325) 10-325 mg per table t 2019-03-13 00:00:00 2019-03-18 23:59:00 No 1{tbl} Take 1 tablet by mouth every 6 (six) hours as needed for Pain for up to 5 days. Max Daily Amount: 4 tablets [facility] cholecalciferol, vitamin D3, 5,000 unit Tab 2019 00:52:02 2019-03-08 00:00:00 No 5000U QD Take 5,000 Units by mouth daily . [facility] insulin lispro (HUMALOG) 100 unit/mL injection 2 00:00:00 2019-08-11 00:00:00 No 0U Inject 0-8 Uni ts subcutaneously 3 (three) times daily before meals. [facility] insulin glargine (LANTUS U-100 INSULIN) 100 unit/mL injectio n 2019-02-09 00:00:00 2019-08-11 00:00:00 No 10U QD Inject 10 Units subcutaneously nightly Use as directed. [facility] oxyCODONE-acetaminophen (PERCOCET) 10-325 mg per tablet 2019-02-07 00:00:00 2019-02-09 00:00:00 No 1{tbl} Take 1 tablet by mouth every 4 (four) hours as needed (severe pain) for up to 10 days. Max Daily Amount: 6 tablets [facility] lisinopril (PRINIVIL,ZESTRIL) 20 MG tablet 01-26 00:00:00 2019-01-25 00:00:00 No 20mg QD Take 1 tablet (20 mg total) by mouth daily. [facility] lisinopril (PRINIVIL,ZESTRIL) 20 MG tablet 01-26 00:00:00 2019-01-25 00:00:00 No 40mg QD Take 2 tablets (40 mg total) by mouth daily. [facility] hydrALAZINE (APRESOLINE) 100 MG tablet 2018-12-31 7 16:52:41 2019-01-25 00:00:00 No 150mg Q.[id number] Ta ke 150 mg by mouth 3 (three) times daily . [facility] insulin regular (HUMULIN R,NOVOLIN R) 100 unit/mL injection 2019-01-25 13:00:11 2019-01-25 00:00:00 No Inject subcutaneously 3 (three) times daily before meals. Use as directed [facility] insulin glargine (LANTUS) 100 unit/mL injection 2019-01-25 13:00:2019-01-25 00:00:00 No 10U QD Inject 10 Units subc utaneously nightly Use as directed . [facility] epoetin gil-epbx (RETACRIT) 3,000 unit/mL Soln injection 2019-01-25 00:00:00 Yes anemia in chronic kidney disease 6000U Inject 2 mLs (6,000 Units total) subcutaneously 3 (three) times a week at bedtime MON/WED/FRI. [facility] senna-docusate (SENOKOT S) 8.6-50 mg per tablet 2019-01-25 00:00:00 2020-01-25 23:59:00 No 2{tbl} QD Take 2 tablets by mouth nightly . [facility] cloNIDine HCl (CATAPRES) 0.1 MG tablet 2018-12-31 7 00:00:00 2019-08-11 00:00:00 No .1mg Take 1 tablet (0.1 mg total) by mouth every 8 (eight) hours. [facility] hydrALAZINE (APRESOLINE) 100 MG tablet 2018-12-31 7 00:00:00 2019-08-11 00:00:00 No 100mg Q.[id number] Ta ke 1 tablet (100 mg total) by mouth 3 (three) times daily. [facility] oxyCODONE-acetaminophen (PERCOCET) 5-325 mg per tablet 2019-01-25 00:00:00 2019-03-13 00:00:00 No 1{tbl} Take 1 tablet by mouth every 4 (four) hours as needed (moderate pain). Max Daily Amount: 6 tablets [facility] lisinopril (PRINIVIL,ZESTRIL) 40 MG tablet 01-25 00:00:00 2019-03-08 00:00:00 No 40mg Q.5D Take 1 tablet (40 mg total) by mouth 2 (two) times daily. [facility] bisacodyl (DULCOLAX) 5 mg EC tablet 2019-01-25 00:00:0 0 2019-02-24 23:59:00 No 5mg Take 1 tablet ( 5 mg total) by mouth daily as needed for Constipation for up to 30 days. [facility] bisacodyl (DULCOLAX) 10 mg suppository 2018-12-31 7 00:00:00 2019-02-07 00:00:[address] 1 suppos itory (10 mg total) rectally daily as needed for up to 10 days. [facility] oxyCODONE-acetaminophen (PERCOCET) 10-325 mg per tablet 2019-01-25 00:00:00 2019-02-07 00:00:00 No 1{tbl} Take 1 tablet by mouth every 4 (four) hours as needed (severe pain) for up to 10 days. Max Daily Amount: 6 tablets [facility] polyethylene glycol (GLYCOLAX) 17 gram packet 20 17-01-27 00:00:00 2019-01-28 23:59:00 No 17g Q.5D Take 17 g by mouth 2 (two) time s daily for 3 days. [facility] piperacillin-tazobactam (ZOSYN) MBP 2.25 g in 100 mL NS 2019-01-25 00:00:00 2019-01-28 23:59:00 No 2.25g Injec t 2.25 g intravenously every 8 (eight) hours for 3 days. [facility] piperacillin-tazobactam (ZOSYN) MBP 2.25 g in 100 mL NS 2019-01-25 00:00:00 2019-01-25 00:00:00 No 2.25g Injec t 2.25 g intravenously every 8 (eight) hours for 2 days. [facility] oxyCODONE-acetaminophen (PERCOCET) 5-325 mg per tablet 2019-01-25 00:00:00 2019-01-25 00:00:00 No 1{tbl} Take 1 tablet by mouth every 4 (four) hours as needed. Max Daily Amount: 6 tablets C [facility] gabapentin (NEURONTIN) 100 MG capsule 2019-01-17 09:58:42 Y es 100mg Take 100 mg by mouth 3 (three) times daily as needed neuropathy. [facility] aspirin 81 MG chewable tablet 2019-01-17 09:42:41 Yes 81mg QD Take 81 mg by mouth daily. [facility] sevelamer (RENVELA) 800 mg tablet 2019-01-17 09:37:13 2018 00:00:00 No 800mg Take 800 mg by m outh 3 (three) times daily with meals. 3 tabs w/ meals [facility] insulin NPH 100 unit/mL (3 mL) InPn 2019-01-17 09:35:3 4 2019-01-17 00:00:00 No 5U QD Inject 5 Units subcutaneously nightly. [facility] lisinopril (PRINIVIL,ZESTRIL) 20 MG tablet 01-17 01:09:35 2019-01-17 00:00:00 No 20mg Q.[id number] Ta ke 20 mg by mouth 3 (three) times daily . [facility] multivitamin per tablet 2019-01-17 01:09:35 2019-01-17 00:00:00 No 1{tbl} QD Take 1 tablet by mouth daily. I [facility] nortriptyline (PAMELOR) 25 MG capsule 2019-01-17 01:09 :35 2019-01-17 00:00:00 No 25mg QD Take 25 mg by mouth nightly. [facility] nitroglycerin (NITRODUR) 0.4 mg/hr patch 2018-11 00:00:00 2019-08-11 00:00:00 No .4{patch} Place 0.4 patc hes onto the skin every 12 (twelve) hours. [facility] LINZESS 145 mcg Cap 2018-12-15 00:00:00 2019-03-08 00:00:00 No 145ug QD Take 145 mcg by mouth daily. [facility] clopidogrel (PLAVIX) 75 mg tablet 2018-12-12 00:00:00 Yes 75mg QD Take 75 mg by mouth daily. [facility] Clindamycin Hcl 300 Mg Capsule Clindamycin Hcl 300 Mg Capsul e 2018-11-24 00:00:00 Yes Ambpradeep Sandsdr Do 300 Every 6 Hours [facility] Nitroglycerin (Nitroglycerin Patch) 1 Each Patch.td24 Nitroglycerin (Nitroglycerin Patch) 1 Each Patch.td24 2018-11-24 00:00:00 Yes Ambica Sandhir Do .4 Daily [facility] Tramadol Hcl (Ultram) 50 Mg Tablet Tramadol Hcl (Ultram) 50 Mg Tablet 2018-11-24 00:00:00 Yes Ambpradeep Lundbergr Do 50 Ev chaparrita 6 Hours as needed for Mild Pain (1-3) Or Fever>100.8 [facility] ([facility]RODUR) 0.4 mg/hr patch 2018-10 00:00:00 2019-01-17 00:00:00 No .4mg/h Apply 0.4 mg/h r topically as needed For dressing changes. [facility] nitroglycerin (NITRODUR) 0.1 mg/hr patch 2018-10 00:00:00 2019-01-17 00:00:00 No .1{patch} QD Place 0.1 patches onto the sk in daily. [facility] cloNIDine HCl (CATAPRES) 0.2 MG tablet 2018-10-30 9 00:00:00 2019-02-23 00:00:00 No .2mg Take 0.2 mg by mouth as needed ( SBP >200) . [facility] lactulose (CHRONULAC) 10 gram/15 mL solution 201 06-03-06 00:00:2019-08-11 00:00:00 No 30mL Take 30 mLs by mouth as needed For constipation. [facility] Doxazosin Mesylate 4 MG Oral Tablet 2012-03-25 23:17:42 Yes (Active) [facility] TraMADol HCl 50 MG Oral Tablet 2012-03-25 23:17:42 Yes (Active) [facility] Ciprodex 0.3-0.1 % Otic Suspension 2012-03-25 06:00:00 Yes ; Start Date: 03/25/2012; End Date: (Active) [facility] CloNIDine HCl 0.1 MG Oral Tablet 2011-10-30 05:00:00 Yes ; Start Date: 10/30/2011 (Active) [facility] cloNIDine HCl (CATAPRES) 0.1 MG tablet 2011-10-02 00:00:00 2019-01-17 00:00:00 No .1mg Take 0.1 mg by mouth as needed for Hypertension (Specify SBP/DBP in PRN comments) SBP >200. [facility] Precision Xtra Blood Glucose In Vitro Strip 2011-07-07 05:00:00 Yes ; Start Date: 07/07/2011; End Date: (Active) [facility] Minoxidil 10 MG Oral Tablet 2011-07-07 05:00:00 [...] 06/22/2011 (Active) [facility] Vitamin D (Ergocalciferol) 30089 UNIT Oral Capsule 2011-05 05:00:00 Yes ; Start Date: 06/22/2011 (Active) [facility] Furosemide 40 MG Oral Tablet 2011-06-22 05:00:00 Yes ; Start Date: 06/22/2011 (Active) [facility] Lisinopril 40 MG Oral Tablet 2011-06-22 05:00:00 Yes ; Start Date: 06/22/2011 (Active) [facility] furosemide (LASIX) 80 MG tablet 2011-06-22 00:00:00 00:00:00 No 80mg QD Take 80 mg by mouth daily. [facility] NovoLIN R 100 UNIT/ML Injection Solution Yes ; Start Date: ; End Date: (Active) [facility] Amlodipine Besylate 5 Mg Tablet Amlodipine Besylate 5 Mg Tablet Yes 5 Twice A Day [facility] Aspirin (Aspir 81) 81 Mg Tablet. Aspirin (Aspir 81) 81 Mg Tablet.dr Lorenzo 81 Daily [facility] Carvedilol 12.5 Mg Tablet Carvedilol 12.5 Mg Tablet Yes 25 Twice A Day [facility] Clonidine Hcl 0.2 Mg Tablet Clonidine Hcl 0.2 Mg Tablet Yes .2 As Needed as needed for High Blood Pressure [facility] [facility] Hydralazine Hcl 25 Mg Tab Hydralazine Hcl 25 Mg Tab Yes 150 Three Times A Day [facility] Insulin Glargine (Lantus 3ML Pen) 100 Units/1 Ml Inj I nsulin Glargine (Lantus 3ML Pen) 100 Units/1 Ml Inj Yes 10 Bedtime [facility] Insulin Regular, Human (Humulin R) 100 Unit/1 Ml Vial Insulin Regular, Human (Humulin R) 100 Unit/1 Ml Vial Yes Before Meals And At Bedtime [facility] Multivitamin (Multi-Vitamin Daily) 1 Each Tablet Multi vitamin (Multi-Vitamin Daily) 1 Each Tablet Yes 1 Daily [facility] Insulin Human Nph (Humulin N) 100 Units/Ml Ml, 5 Unit Sub-Q Insulin Human Nph (Humulin N) 100 Units/Ml Ml, 5 Unit Sub-Q 2018-09-13 00:00:00 No 5 Bedtime [facility] Lisinopril 10 Mg Tablet, 20 Mg Oral Lisinopril 10 Mg Tablet, 20 Mg Oral 2018-09-13 00:00:00 No 20 Daily [facility] Sevelamer Hcl (Renvela) 800 Mg Tab, 800 Mg Oral Sevela keara Hcl (Renvela) 800 Mg Tab, 800 Mg Oral 2018-09-13 00:00:00 No 800 Three T imes A Day [facility] Vital Signs Vital Name Observation Time Observation Value Comments Source Systolic blood pressure 2019-10-07 15:00:00 175 mm[Hg] [facility] Diastolic blood pressure 2019-10-07 15:00:00 75 mm[Hg] [facility] Heart rate 2019-10-07 15:00:00 72 /min [facility] Body temperature 2019-10-07 15:00:00 35.89 Cathy [facility] Respiratory rate 2019-10-07 15:00:00 18 /min [facility] Oxygen saturation in Arterial blood by Pulse oximetry 10-06 15:00:00 100 [facility] Measured 2019-10-07 13:45:00 84.8 kg [facility] BMI 2019-10-07 13:45:00 24.67 kg/m2 [facility] Body height 2019-10-07 07:00:00 185.4 cm [facility] Procedures Procedure Date / Time Performed Performing Clinician [facility] REPORT OF PROCEDURE - ENDOSCOPY SCAN 2019-10-10 11:41:04 Pro vider, Default Scanning [facility] TRANSFUSION SERVICE REPORT - SCAN 2019-10-09 18:00:13 Provid er, Default Scanning [facility] PREPARE LEUKO-REDUCED RBC 2019-10-08 23:54:00 Carla Garibay [facility] TRANSFUSION SERVICE REPORT - SCAN 2019-10-08 18:00:14 Provid er, Default Scanning [facility] TRANSFUSION SERVICE REPORT - SCAN 2019-10-07 18:03:14 Provid er, Default Scanning [facility] POCT-GLUCOSE METER 2019-10-07 15:41:00 Neha Khan [facility] TROPONIN I 2019-10-07 15:37:00 Neha Khan [facility] HEMODIALYSIS INPATIENT 2019-10-07 13:45:00 Alexi Bauer I [facility] HEMOGLOBIN AND HEMATOCRIT 2019-10-07 13:34:00 Neha Khan [facility] POCT-GLUCOSE METER 2019-10-07 13:27:00 Neha Khan [facility] TRANSFUSE LEUKO-REDUCED RED BLOOD CELLS 2019-10-07 12:31:50 Carla Garibay [facility] TRANSFUSE LEUKO-REDUCED RED BLOOD CELLS 2019-10-07 10:06:46 Kinsey colmenares Placido [facility] POCT-GLUCOSE METER 2019-10-07 07:24:00 Carla Garibay [facility] TROPONIN I 2019-10-07 06:25:00 Placido Maradiaga [facility] BASIC METABOLIC PANEL (7) 2019-10-07 06:25:00 Carla Garibay [facility] PHOSPHORUS 2019-10-07 06:25:00 Carla Garibay [facility] MAGNESIUM 2019-10-07 06:25:00 Carla Garibay [facility] HEMOGLOBIN AND HEMATOCRIT 2019-10-07 05:19:00 Placido Maradiaga [facility] CBC (HEMOGRAM ONLY) 2019-10-07 05:19:00 Carla Garibay [facility] TRANSFUSE LEUKO-REDUCED RED BLOOD CELLS 2019-10-07 01:34:08 Kinsey colmenares Placido [facility] SARS-COV2/RT-PCR ([facility] & REF LABS) 2019-10-06 23:37:00 Carla Montes [facility] TROPONIN I 2019-10-06 23:37:00 [facility], TIBC, % SAT. (WITHOUT FERRITIN) 2019-10-06 23:37:00 Carla Eckert [facility] FERRITIN 2019-10-06 23:37:00 Carla Garibay [facility] XR CHEST 1 VIEW PORTABLE/BEDSIDE 2019-10-06 19:37:00 [facility] ECG 12-LEAD 2019-10-06 [facility]OLIC PANEL (7) 2019-10-06 19:22:00 [facility] TROPONIN I 2019-10-06 19:22:00 [facility] TYPE AND SCREEN, AUTOMATED 2019-10-06 19:22:00 [facility] CBC W/PLT COUNT & AUTO DIFFERENTIAL 2019-10-06 19:22:00 Ricardo mathur [facility] ED ECG INTERPRETATION 2019-10-06 19:07:22 [facility] TRANSFUSION SERVICE REPORT - SCAN 2019-08-16 18:01:31 Provid er, Default Scanning [facility] PREPARE LEUKO-REDUCED RBC 2019-08-14 19:34:00 Carisa Lehman [facility] PREPARE RBC 2019-08-14 19:34:00 Tobi Bautista [facility] POCT-GLUCOSE METER 2019-08-14 16:39:00 Priya Cheung [facility] POCT-GLUCOSE METER 2019-08-14 11:27:00 Priya Cheung [facility] POCT-GLUCOSE METER 2019-08-14 07:46:00 Priya Cheung [facility] BASIC METABOLIC PANEL (7) 2019-08-14 05:13:00 Carisa Lehman [facility] PHOSPHORUS 2019-08-14 05:13:00 Carisa Lehman [facility] CBC W/PLT COUNT & AUTO DIFFERENTIAL 2019-08-14 05:13:00 Garcia Lehman [facility] POCT-GLUCOSE METER 2019-08-13 23:27:00 Tobi Bautista [facility] POCT-GLUCOSE METER 2019-08-13 21:27:00 Tobi Bautista [facility] TRANSFUSION SERVICE REPORT - SCAN 2019-08-13 18:00:28 Provid er, Default Scanning [facility] POCT-GLUCOSE METER 2019-08-13 16:37:00 Tobi Bautista [facility] POCT-GLUCOSE METER 2019-08-13 11:42:00 Tobi Bautista [facility] POCT-GLUCOSE METER 2019-08-13 08:20:00 Tobi Bautista [facility] POCT-GLUCOSE METER 2019-08-13 05:44:00 Tobi Bautista [facility] BASIC METABOLIC PANEL (7) 2019-08-13 05:11:00 Carisa Lehman [facility] PHOSPHORUS 2019-08-13 05:11:00 Carisa Lehman [facility] CBC W/PLT COUNT & AUTO DIFFERENTIAL 2019-08-13 05:11:00 Garcia Lehman [facility] POCT-GLUCOSE METER 2019-08-12 23:28:00 Tobi Bautista [facility] TRANSFUSION SERVICE REPORT - SCAN 2019-08-12 18:02:54 Provid er, Default Scanning [facility] POCT-GLUCOSE METER 2019-08-12 15:43:00 Tobi Bautista [facility] POCT-GLUCOSE METER 2019-08-12 11:18:00 Tobi Bautista [facility] POCT-GLUCOSE METER 2019-08-12 08:02:00 Tobi Bautista [facility] BASIC METABOLIC PANEL (7) 2019-08-12 05:37:00 Carisa Lehman [facility] MAGNESIUM 2019-08-12 05:37:00 Carisa Lehman [facility] PHOSPHORUS 2019-08-12 05:37:00 Carisa Lehman [facility] CBC W/PLT COUNT & AUTO DIFFERENTIAL 2019-08-12 05:37:00 Garcia Lehman [facility] POCT-GLUCOSE METER 2019-08-12 01:28:00 Tobi Bautista [facility] HEMODIALYSIS INPATIENT 2019-08-11 23:37:07 Claudy Witt [facility] I [facility] POCT-GLUCOSE METER 2019-08-11 22:37:00 Tobi Bautista [facility] TRANSFUSE LEUKO-REDUCED RED BLOOD CELLS 2019-08-11 21:58:47 Carisa Lehman [facility] POCT-GLUCOSE METER 2019-08-11 19:42:00 Tobi Bautista [facility] TYPE AND SCREEN, AUTOMATED 2019-08-11 17:37:00 Carisa Lehman [facility] POCT-GLUCOSE METER 2019-08-11 16:06:00 Tobi Bautista [facility] POCT-GLUCOSE METER 2019-08-11 12:01:00 Tobi Bautista [facility] HEMOGLOBIN AND HEMATOCRIT 2019-08-11 08:35:00 Carisa Lehman [facility] POCT-GLUCOSE METER 2019-08-11 08:08:00 Tobi Bautista [facility] BASIC METABOLIC PANEL (7) 2019-08-11 04:53:00 Carisa Lehman [facility] MAGNESIUM 2019-08-11 04:53:00 Carisa Lehman [facility] PHOSPHORUS 2019-08-11 04:53:00 Carisa Lehman [facility] CBC W/PLT COUNT & AUTO DIFFERENTIAL 2019-08-11 04:53:00 Garcia Lehman [facility] POCT-GLUCOSE METER 2019-08-10 20:09:00 Tobi Bautista [facility] POCT-GLUCOSE METER 2019-08-10 16:55:00 Tobi Bautista [facility] XR FOOT LEFT 3 VIEW 2019-08-10 15:41:00 Kj Ramirez [facility] POCT-GLUCOSE METER 2019-08-10 12:10:00 Tobi Bautista [facility] POCT-GLUCOSE METER 2019-08-10 07:50:00 Tobi Bautista [facility] BASIC METABOLIC PANEL (7) 2019-08-10 05:33:00 Carisa Lehman [facility] MAGNESIUM 2019-08-10 05:33:00 Carisa Lehman [facility] PHOSPHORUS 2019-08-10 05:33:00 Carisa Lehman [facility] VITAMIN B12 AND FOLATE 2019-08-10 05:33:00 Carisa Lehman [facility] IRON, TIBC, % SAT. (WITHOUT FERRITIN) 2019-08-10 05:33:00 Carisa Lehman [facility] FERRITIN 2019-08-10 05:33:00 Carisa Lehman [facility] CBC W/PLT COUNT & AUTO DIFFERENTIAL 2019-08-10 05:33:00 Garcia Lehman [facility] POCT-GLUCOSE METER 2019 21:02:00 Tobi Bautista [facility] HEMODIALYSIS INPATIENT 2019 18:04:24 Claudy Witt [facility] I [facility] POCT-GLUCOSE METER 2019 16:16:00 Tobi Bautista [facility] HEPATITIS B SURFACE ANTIGEN 2019 16:14:00 Claudy Witt [facility] POCT-GLUCOSE METER 2019 12:31:00 Tobi Bautista [facility] POCT-GLUCOSE METER 2019 08:36:00 Tobi Bautista [facility] HEMOGLOBIN A1C 2019 04:57:00 Carisa Lehman [facility] BASIC METABOLIC PANEL (7) 2019 04:57:00 Carisa Lehman h [facility] MAGNESIUM 2019 04:57:00 Carisa Lehman [facility] PHOSPHORUS 2019 04:57:00 Carisa Lehman [facility] HEPATIC FUNCTION PANEL 2019 04:57:00 Carisa Lehman [facility] CBC W/PLT COUNT & AUTO DIFFERENTIAL 2019 04:57:00 Garcia Lehman [facility] POCT-GLUCOSE METER 2019-08-08 20:32:00 Tobi Bautista [facility] POCT-GLUCOSE METER 2019-08-08 17:22:00 Tobi Bautista [facility] POCT-GLUCOSE METER 2019-08-08 13:58:00 Tobi Bautista [facility] POCT-GLUCOSE METER 2019-08-08 11:43:00 Kj Ramirez [facility] DEBRIDEMENT/I&D,WOUND EXTREMITY LOWER 2019-08-08 09:35:00 Kj Ramirez [facility] SKIN GRAFT,SKIN SUBSTITUTE 2019-08-08 09:35:00 Kj Ramirez [facility] PLACEMENT,WOUND VAC 2019-08-08 09:35:00 Kj Ramirez [facility] SKIN GRAFT,SPLIT THICKNESS-LOWER EXTREMITY 2019-08-08 09:35: 00 Roland Wilson [facility] BASIC METABOLIC PANEL (7) 2019-08-08 08:22:00 Vega Mcwilliams [facility] LIPID PANEL 2019-08-08 08:22:00 Carisa Lehman [facility] POCT-GLUCOSE METER 2019-08-08 07:44:00 Kj Ramirez [facility] SARS-COV2/RT-PCR ([facility] & REF LABS) 2019-08-03 09:55:00 Álvaro Mendenhall [facility] POTASSIUM 2019-08-03 09:55:00 Jerome Crews [facility] HEMOGLOBIN 2019-08-03 09:55:00 Jerome Crews [facility] XR FOOT LEFT 3 VIEW 2019-07-20 10:45:00 Kj Ramirez [facility] RHYTHM STRIP - SCAN 2019-04-11 15:50:08 Provider, Default Scanni [facility] RHYTHM STRIP - SCAN 2019-04-10 13:42:08 Provider, Default Scanni [facility] CARDIAC CATH REPORT - SCAN 2019-04-10 13:42:04 Provider, Default Scanning [facility] TRANSFUSION SERVICE REPORT - SCAN 2019-04-08 17:52:12 Provid er, Default Scanning [facility] POCT-GLUCOSE METER 2019-04-08 11:23:00 Steve [facility] POCT-GLUCOSE METER 2019-04-08 07:15:00 Wilson [facility] BASIC METABOLIC PANEL (7) 2019-04-08 05:36:00 Nadine Ramirez [facility] CBC (HEMOGRAM ONLY) 2019-04-08 05:36:00 Nadine Ramirez [facility] POCT-GLUCOSE METER 2019-04-07 22:49:00 Steve [facility] POCT-GLUCOSE METER 2019-04-07 16:15:00 Steve [facility] POCT-ACT 2019-04-07 11:06:00 Steve [facility] POCT-ACT 2019-04-07 10:50:00 Steve Roland [facility] POCT-ACT 2019-04-07 10:11:00 [facility] 2019-04-07 09:49:00 [facility] 2019-04-07 09:34:00 Roland Wilson [facility] PERIPHERAL ANGIOS / AORTOGRAM 2019-04-07 07:30:00 Filemon Wilson [facility] BASIC METABOLIC PANEL (7) 2019-04-07 07:02:00 Roland Wilson [facility] TYPE AND SCREEN, AUTOMATED 2019-04-07 07:02:00 Nadine Ramirez [facility] CBC W/PLT COUNT & AUTO DIFFERENTIAL 2019-04-07 07:02:00 Nick kwon [facility] ECG 12-LEAD 2019-04-07 06:54:12 Unknown, Hl7 Doctor [facility] RHYTHM STRIP - SCAN 2019-03-15 11:40:56 Provider, Default Scanni evy [facility] POCT-GLUCOSE METER 2019-03-13 17:22:00 Paola Escalera [facility] POCT-GLUCOSE METER 2019-03-13 12:46:00 Jw [facility] BASIC METABOLIC PANEL (7) 2019-03-13 08:45:00 Khadra Womack [facility] PHOSPHORUS 2019-03-13 08:45:00 Khadra Womack [facility] HEMOGLOBIN AND HEMATOCRIT 2019-03-13 07:27:00 Isabel Royal [facility] POCT-GLUCOSE METER 2019-03-12 21:53:00 Bryce [facility] TRANSFUSION SERVICE REPORT - SCAN 2019-03-12 18:00:48 Provid er, Default Scanning [facility] POCT-GLUCOSE METER 2019-03-12 17:46:00 Bryce [facility] POCT-GLUCOSE METER 2019-03-12 11:56:00 [facility] 2019-03-12 08:28:00 Bryce, [facility] HEMOGLOBIN AND HEMATOCRIT 2019-03-12 04:03:00 Isabel Royal [facility] BASIC METABOLIC PANEL (7) 2019-03-12 04:02:00 SilviaariaJesi S C [facility] POCT-GLUCOSE METER 2019-03-11 22:24:00 Bryce, [facility] TRANSFUSION SERVICE REPORT - SCAN 2019-03-11 18:01:27 Provid er, Default Scanning [facility] HEMOGLOBIN AND HEMATOCRIT 2019-03-11 17:54:00 Isabel Royal [facility] POCT-GLUCOSE METER 2019-03-11 17:35:00 Bryce, [facility] POCT-GLUCOSE METER 2019-03-11 13:09:00 [facility], [facility] VEIN MAPPING LEGS BILATERAL 2019-03-11 10:25:00 Nadine Ramirez [facility] POCT-GLUCOSE METER 2019-03-11 07:31:00 [facility], [facility] PREPARE RBC 2019-03-11 06:56:00 Averysophy Juan Keshia [facility] BASIC METABOLIC PANEL (7) 2019-03-11 04:16:00 [facility] Jesi S C [facility] HEMOGLOBIN AND HEMATOCRIT 2019-03-11 04:16:00 Isabel Royal [facility] PREPARE RBC 2019-03-10 23:54:00 [facility] POCT-GLUCOSE METER 2019-03-10 21:35:00 [facility] HEMOGLOBIN AND HEMATOCRIT 2019-03-10 18:20:00 Isabel Royal [facility] TRANSFUSION SERVICE REPORT - SCAN 2019-03-10 18:01:37 Provid er, Default Scanning [facility] POCT-GLUCOSE METER 2019-03-10 17:09:00 Filiberto [facility] POCT-GLUCOSE METER 2019-03-10 13:35:00 Filiberto [facility] BASIC METABOLIC PANEL (7) 2019-03-10 11:33:00 Jesi De Los Santos [facility] HEMODIALYSIS INPATIENT 2019-03-10 09:19:38 Khadra Womack [facility] BLOOD CULTURE 2019-03-10 08:33:00 [facility] 2019-03-10 08:32:00 Isabel Royal [facility] IRON, TIBC, % SAT. (WITHOUT FERRITIN) 2019-03-10 08:32:00 Khadra Stephens Monique [facility] FERRITIN 2019-03-10 08:32:00 [facility] W/[facility]T COUNT & AUTO DIFFERENTIAL 2019-03-10 08:32:00 Filiberto [facility] POCT-GLUCOSE METER 2019-03-10 07:33:00 [facility] 2019-03-09 23:29:00 Isabel Royal [facility] POCT-GLUCOSE METER 2019-03-09 23:16:00 [facility] TRANSFUSE LEUKO-REDUCED RED BLOOD CELLS 2019-03-09 20:47:49 Chela dumont [facility] POCT-GLUCOSE METER 2019-03-09 19:51:00 [facility] ARTERIAL DOPPLER LEGS BILATERAL 2019-03-09 18:51:00 [facility] TRANSFUSION SERVICE REPORT - SCAN 2019-03-09 18:01:42 Provid er, Default Scanning [facility] PROTHROMBIN TIME/INR 2019-03-09 14:56:00 Silviakaren [facility] POCT-GLUCOSE METER 2019-03-09 13:14:00 Filiberto [facility] BLOOD CULTURE 2019-03-09 11:53:00 Filiberto [facility] BASIC METABOLIC PANEL (7) 2019-03-09 11:53:00 Kayleigh De Los Santosush Lindsay Summers [facility] CBC W/PLT COUNT & AUTO DIFFERENTIAL 2019-03-09 11:53:00 [facility] POCT-GLUCOSE METER 2019-03-09 07:49:00 Filiberto [facility] HEPATITIS B SURFACE ANTIGEN 2019-03-09 05:45:00 Binh Womack Monique [facility] HEMOGLOBIN AND HEMATOCRIT 2019-03-09 05:45:00 [facility] XR FOOT LEFT 3 VIEW 2019-03-08 20:56:00 Kailey Long [facility] POCT-GLUCOSE METER 2019-03-08 20:29:00 [facility] TRANSFUSE LEUKO-REDUCED RED BLOOD CELLS 2019-03-08 18:43:31 Chela tim [facility] TRANSFUSION SERVICE REPORT - SCAN 2019-03-08 18:18:07 Provid er, Default Scanning [facility] HEMODIALYSIS INPATIENT 2019-03-08 15:32:59 Khadra Womack [facility] POCT-GLUCOSE METER 2019-03-08 11:39:00 Filiberto [facility] POCT-GLUCOSE METER 2019-03-08 09:42:00 [facility] PREPARE LEUKO-REDUCED RBC 2019-03-08 09:39:[address] [facility] HEMOGLOBIN AND HEMATOCRIT 2019-03-08 06:21:00 Isabel Royal [facility] BASIC METABOLIC PANEL (7) 2019-03-07 22:27:00 Juan Segundo [facility] PT/APTT 2019-03-07 22:27:00 Juan Segundo [facility] PHOSPHORUS 2019-03-07 22:27:00 Isabel Royal [facility] TYPE AND SCREEN, AUTOMATED 2019-03-07 22:27:00 Juan Segundo [facility] CBC W/PLT COUNT & AUTO DIFFERENTIAL 2019-03-07 22:27:00 Juan Segundo [facility] REPORT OF PROCEDURE - ENDOSCOPY SCAN 2019-02-27 08:41:21 Pro vider, Default Scanning [facility] RHYTHM STRIP - SCAN 2019-02-27 08:41:19 Provider, Default Scanni [facility] TRANSFUSION SERVICE REPORT - SCAN 2019-02-25 18:04:11 Provid er, [facility] TRANSFUSION SERVICE REPORT - SCAN 2019-02-23 18:02:41 Provid er, [facility] Scanning [facility] TISSUE EXAM 2019-02-23 08:18:00 [facility] UPPER ENDOSCOPY 2019-02-23 08:00:00 [facility] POCT-GLUCOSE METER 2019-02-23 06:51:00 Jose [facility] MAGNESIUM 2019-02-23 05:59:00 Nelly [facility] PHOSPHORUS 2019-02-23 05:59:00 [facility]legas [facility] BASIC METABOLIC PANEL (7) 2019-02-23 05:59:00 Gi Villegas [facility] CBC W/PLT COUNT & AUTO DIFFERENTIAL 2019-02-23 05:59:00 Nelly [facility] POCT-GLUCOSE METER 2019-02-22 20:56:00 Jose Stevenson [facility] PREPARE LEUKO-REDUCED RBC 2019-02-22 16:47:00 Shira Noe ma [facility] POCT-GLUCOSE METER 2019-02-22 13:08:00 Jose [facility] TYPE AND SCREEN, AUTOMATED 2019-02-22 11:01:00 Shira Noe [facility] HEPATITIS B SURFACE ANTIBODY 2019-02-22 09:56:00 Shira Noe [facility] HEPATITIS B SURFACE ANTIGEN 2019-02-22 09:56:00 Shira Noe Tunde armmodesta [facility] POCT-GLUCOSE METER 2019-02-22 06:37:00 Jose Stevenson [facility] TROPONIN I 2019-02-22 05:31:00 Villeg[facility] MAGNESIUM 2019-02-22 05:31:00 [facility] 2019-02-22 05:31[facility]EL (7) 2019-02-22 05:31:00 [facility] W/PLT COUNT & AUTO DIFFERENTIAL 2019-02-22 05:31:00 [facility] POCT-GLUCOSE METER 2019-02-21 20:42:00 Jose Stevenson [facility] HEMODIALYSIS INPATIENT 2019-02-21 19:03:22 Hasmukh Shira Yo [facility] POCT-GLUCOSE METER 2019-02-21 16:20:00 Jose Stevenson [facility] POCT-GLUCOSE METER 2019-02-21 11:44:00 Jose [facility] POCT-GLUCOSE METER 2019-02-21 05:57:00 Jose tSevenson [facility] BASIC METABOLIC PANEL (7) 2019-02-21 04:20:00 Grady Kramer [facility] MAGNESIUM 2019-02-21 04:20:00 [facility] PHOS[facility]US 2019-02-21 04:20:[facility] W/PLT COUNT & AUTO DIFFERENTIAL 2019-02-21 04:20:[facility] 2019-02-21 00:15:00 VillegasGi solomon [facility] POCT-GLUCOSE METER 2019-02-20 21:43:00 Graham Jose [facility] POCT-GLUCOSE METER 2019-02-20 18:29:00 Graham Jose [facility] POCT-GLUCOSE METER 2019-02-20 16:57:00 Graham Jose [facility] POCT-GLUCOSE METER 2019-02-20 15:25:00 Graham Jose [facility] POCT-GLUCOSE METER 2019-02-20 14:18:[address] [facility] POCT-GLUCOSE METER 2019-02-20 13:07:[address] [facility] POCT-GLUCOSE METER 2019-02-20 12:00:[address] [facility] POCT-GLUCOSE METER 2019-02-20 11:03:00 Graham Jose [facility] POCT-GLUCOSE METER 2019-02-20 09:34:[address] [facility] POCT-GLUCOSE METER 2019-02-20 07:18:[address] [facility] POCT-GLUCOSE METER 2019-02-20 06:23:[address] [facility] BASIC METABOLIC PANEL (7) 2019-02-20 05:18:00 Ludwig Prince [facility] TROPONIN I 2019-02-20 05:18:00 Ludwig Prince [facility] POCT-GLUCOSE METER 2019-02-20 04:47:00 Ludwig Prince [facility] XR CHEST 1 VIEW PORTABLE/BEDSIDE 2019-02-20 04:16:00 Norma Prince [facility] POCT-GLUCOSE METER 2019-02-20 04:08:00 Ludwig Prince [facility] ELECTRICAL CARDIOVERSION 2019-02-20 03:25:03 Jennifer, [facility] PROCEDURAL SEDATION 2019-02-20 03:25:03 Jennifer, [facility] ED ECG INTERPRETATION 2019-02-20 03:25:03 Jennifer [facility] POCT-GLUCOSE METER 2019-02-20 03:11:00 Jennifer, [facility] BASIC METABOLIC PANEL (7) 2019-02-20 02:52:00 Jennifer, [facility] CH I [facility] MAGNESIUM 2019-02-20 02:52:00 Jennifer, [facility] TROPONIN I 2019-02-20 02:52:00 Jennifer, [facility] B-TYPE NATRIURETIC FACTOR (BNP) 2019-02-20 02:51:00 Jennifer [facility] PROTHROMBIN TIME/INR 2019-02-20 02:51:00 Jennifer, [facility] APTT 2019-02-20 02:51:00 Jennifer [facility] [facility] CBC W/PLT COUNT & AUTO DIFFERENTIAL 2019-02-20 02:51:00 Jennifer [facility] TRANSFUSION SERVICE REPORT - SCAN 2019-02-12 18:00:18 Provid er, Default Scanning [facility] TRANSFUSION SERVICE REPORT - SCAN 2019-02-10 18:00:50 Provid er, Default Scanning [facility] RHYTHM STRIP - SCAN 2019-02-10 14:01:15 Provider, Default Scanni [facility] REPORT OF PROCEDURE - ENDOSCOPY SCAN 2019-02-10 14:01:13 Pro vider, Default Scanning [facility] PREPARE LEUKO-REDUCED RBC 2019-02-09 23:54:00 Maureen Caceres [facility] TRANSFUSION SERVICE REPORT - SCAN 2019-02-09 18:01:01 Provid er, Default Scanning [facility] PREPARE RBC 2019-02-09 13:18:00 Rhiannon Caceres shaun [facility] POCT-GLUCOSE METER 2019-02-09 08:32:00 Rhiannon Caceres [facility] HEMOGLOBIN AND HEMATOCRIT 2019-02-09 05:27:00 Maureen Caceres [facility] TRANSFUSE LEUKO-REDUCED RED BLOOD CELLS 2019-02-09 00:39:12 Rhiannon Caceres [facility] POCT-GLUCOSE METER 2019-02-09 00:12:00 Rhiannon Caceres [facility] PREPARE RBC 2019-02-08 23:54:00 Rut Banks [facility] POCT-GLUCOSE METER 2019-02-08 20:03:00 Rhiannon Caceres [facility] TRANSFUSE LEUKO-REDUCED RED BLOOD CELLS 2019-02-08 18:49:40 Rhiannon Caceres [facility] TRANSFUSION SERVICE REPORT - SCAN 2019-02-08 18:01:14 Provid er, Default Scanning [facility] POCT-GLUCOSE METER 2019-02-08 16:34:00 Rhiannon Caceres [facility] POCT-GLUCOSE METER 2019-02-08 13:51:00 Rhiannon Caceres [facility] HEMODIALYSIS INPATIENT 2019-02-08 12:14:00 Irena De La Torre [facility] POCT-GLUCOSE METER 2019-02-08 08:09:00 Rhiannon Caceres [facility] BASIC METABOLIC PANEL (7) 2019-02-08 04:31:00 Richard Escalera [facility] MAGNESIUM 2019-02-08 04:31:00 Richard Escalera [facility] PHOSPHORUS 2019-02-08 04:31:00 Richard Escalera [facility] CBC W/PLT COUNT & AUTO DIFFERENTIAL 2019-02-08 04:31:00 Modesat Escalera [facility] POCT-GLUCOSE METER 2019-02-08 00:08:00 Gadicherrandy, Rut Muralin [facility] TRANSFUSE LEUKO-REDUCED RED BLOOD CELLS 2019-02-07 22:25:16 Gadicherla, Rut Muralinath [facility] POCT-GLUCOSE METER 2019-02-07 21:30:00 Gadicherla, Rut Muralin ath [facility] POCT-GLUCOSE METER 2019-02-07 20:00:00 Gadicherla, Rut Muralin [facility] TRANSFUSION SERVICE REPORT - SCAN 2019-02-07 18:50:04 Provid er, Default Scanning [facility] TYPE AND SCREEN, AUTOMATED 2019-02-07 15:32:00 Gadicherla, Rut Muralinath [facility] POCT-GLUCOSE METER 2019-02-07 13:01:00 Gadicherla, Rut Muralin [facility] POCT-GLUCOSE METER 2019-02-07 08:16:00 Gadicherrandy, Rut Muralin [facility] BASIC METABOLIC PANEL (7) 2019-02-07 06:13:00 Richard Escalera [facility] MAGNESIUM 2019-02-07 06:13:00 Richard Escalera [facility] PHOSPHORUS 2019-02-07 06:13:00 [facility] W/PLT COUNT & AUTO DIFFERENTIAL 2019-02-07 06:13:00 Jw Modesta stringer [facility] PREPARE LEUKO-REDUCED RBC 2019-02-06 23:54:00 Gadicherrandy, Rut Muralinath [facility] POCT-GLUCOSE METER 2019-02-06 22:20:00 Gadicherla, Rut Muralin [facility] POCT-GLUCOSE METER 2019-02-06 20:18:00 Gadicherla, Rut Muralin [facility] HEMODIALYSIS INPATIENT 2019-02-06 18:10:00 Irena De La Torre [facility] TRANSFUSION SERVICE REPORT - SCAN 2019-02-06 18:00:12 Provid er, Default Scanning [facility] POCT-GLUCOSE METER 2019-02-06 17:07:00 GadchristierPio padillaal Muralin [facility] POCT-GLUCOSE METER 2019-02-06 14:41:00 GadicherPio padillaal Muralin [facility] POCT-GLUCOSE METER 2019-02-06 08:26:00 GadicherPio padillaal Muralin [facility] BASIC METABOLIC PANEL (7) 2019-02-06 04:42:00 [facility] 2019-02-06 04:42:00 [facility] 2019-02-06 04:42:00 Jw [facility] CBC W/PLT COUNT & AUTO DIFFERENTIAL 2019-02-06 04:42:00 Modesta Escalera [facility] PREPARE LEUKO-REDUCED RBC 2019-02-05 23:54:00 Rut Banks [facility] POCT-GLUCOSE METER 2019-02-05 20:57:00 MalcolmerPio padillaal Muralin [facility] TRANSFUSE LEUKO-REDUCED RED BLOOD CELLS 2019-02-05 18:48:44 MalcolmerRut padilla Muralinayah [facility] TRANSFUSION SERVICE REPORT - SCAN 2019-02-05 18:00:26 Provid er, Default Scanning [facility] POCT-GLUCOSE METER 2019-02-05 15:50:00 GadchristierPio padillaal Muralin [facility] POCT-GLUCOSE METER 2019-02-05 10:46:00 GadicherlaPioal Muralin [facility] BASIC METABOLIC PANEL (7) 2019-02-05 04:37:00 Richard Escalera [facility] MAGNESIUM 2019-02-05 04:37:00 [facility] 2019-02-05 04:37:00 Richard Escalera [facility] CBC W/PLT COUNT & AUTO DIFFERENTIAL 2019-02-05 04:37:00 oMdesta Escalera [facility] PREPARE LEUKO-REDUCED RBC 2019-02-04 23:54:00 Gold Gabriel I [facility] TRANSFUSE LEUKO-REDUCED RED BLOOD CELLS 2019-02-04 21:23:00 Gadicherla, Rut Muralinath [facility] POCT-GLUCOSE METER 2019-02-04 19:36:00 Gadicherla, Rut Muralin ath [facility] TRANSFUSION SERVICE REPORT - SCAN 2019-02-04 18:00:49 Provid er, Default Scanning [facility] TYPE AND SCREEN, AUTOMATED 2019-02-04 17:01:00 Gadicherla, Rut Muralinath [facility] POCT-GLUCOSE METER 2019-02-04 16:11:00 Gadicherla, Rut Muralin ath [facility] POCT-GLUCOSE METER 2019-02-04 09:53:00 Gadicherla, Rut Muralin ath [facility] BASIC METABOLIC PANEL (7) 2019-02-04 05:29:00 Richard Escalera [facility] MAGNESIUM 2019-02-04 05:29:00 Richard Escalera [facility] PHOSPHORUS 2019-02-04 05:29:00 Richard Escalera [facility] CBC W/PLT COUNT & AUTO DIFFERENTIAL 2019-02-04 05:29:00 Modesta Escalera [facility] TRANSFUSION SERVICE REPORT - SCAN 2019-02-03 18:04:27 Provid er, Default Scanning [facility] ANTIBODY IDENTIFICATION 2019-02-03 16:05:00 Gold Gabriel [facility] POCT-GLUCOSE METER 2019-02-03 15:19:00 Gadicherla, Rut Muralin ath [facility] LACTIC ACID, VENOUS 2019-02-03 08:54:00 [facility] BLO[facility] 2019-02-03 08:53:00 RootLoren [facility] POCT-GLUCOSE METER 2019-02-03 08:35:00 [facility] HEMODIALYSIS INPATIENT 2019-02-03 08:32:13 Irena De La Torre [facility] TRANSFUSE LEUKO-REDUCED RED BLOOD CELLS 2019-02-03 08:02:57 Gold Gabriel [facility] BASIC METABOLIC PANEL (7) 2019-02-03 05:14:00 [facility] 2019-02-03 05:14:00 Jw [facility] PHOSPHORUS 2019-02-03 05:14:00 Jw [facility] CBC W/PLT COUNT & AUTO DIFFERENTIAL 2019-02-03 05:14:00 Modesta Escalera [facility] POCT-GLUCOSE METER 2019-02-03 04:58:00 [facility] PREPARE RBC 2019-02-03 03:24:00 [facility]-1 ANTIGEN WITH HIV-1/2 ANTIBODY 2019-02-03 00:25:00 Modesta Escalera [facility] HEPATITIS C ANTIBODY 2019-02-03 00:25:00 Jw [facility] HEPATITIS B PANEL 2019-02-03 00:25:00 Jw [facility] POCT-GLUCOSE METER 2019-02-02 21:15:00 Gold Gabriel [facility] BASIC METABOLIC PANEL (7) 2019-02-02 19:57:00 Gold Gabriel CH I [facility] MAGNESIUM 2019-02-02 19:57:00 Gold Gabriel [facility] TROPONIN I 2019-02-02 19:57:00 Gold Gabriel [facility] PT/APTT 2019-02-02 19:57:00 Gold Gabriel [facility] B-TYPE NATRIURETIC FACTOR (BNP) 2019-02-02 19:57:00 Gold Gabriel [facility] TYPE AND SCREEN, AUTOMATED 2019-02-02 19:57:00 Gold Gabriel [facility] DIRECT AHG (KAYLENE)/DIRECT KAYDEN 2019-02-02 19:57:00 Gold Gabriel [facility] CBC W/PLT COUNT & AUTO DIFFERENTIAL 2019-02-02 19:57:00 Julian Gabriel [facility] XR CHEST 1 VIEW PORTABLE/BEDSIDE 2019-02-02 19:31:00 Gold Gabriel [facility] ECG 12-LEAD 2019-02-02 15:49:56 Gold Gabriel [facility] [id number] 2019-02-01 00:00:00 ENCPL [id number] 2019-02-01 00:00:00 ENCPL 39931P3 2019-02-01 00:00:00 ENCPL 96137U3 2019-02-01 00:00:00 ENCPL 47384S6 2019-02-01 00:00:00 ENCPL 28392S4 2019-02-01 00:00:00 ENCPL 90269I3 2019-02-01 00:00:00 ENCPL 23803A1 2019-02-01 00:00:00 ENCPL 75480Y8 2019-02-01 00:00:00 ENCPL 20248Y1 2019-02-01 00:00:00 ENCPL 44268M0 2019-02-01 00:00:00 ENCPL 63897V8 2019-02-01 00:00:00 ENCPL 40245Y8 2019-02-01 00:00:00 ENCPL 11777H0 2019-02-01 00:00:00 ENCPL CARDIAC CATH REPORT - SCAN 2019-01-31 08:32:33 Provider, Default Scanning [facility] RHYTHM STRIP - SCAN 2019-01-31 08:32:18 Provider, Default Scanni ng [facility] [id number] 2019-01-27 00:00:00 ENCPL 9Q1D03M 2019-01-27 00:00:00 ENCPL 4G3F30U 2019-01-27 00:00:00 ENCPL 3G2T20I 2019-01-27 00:00:00 ENCPL 5S9A87N 2019-01-27 00:00:00 ENCPL 3J7P40X 2019-01-27 00:00:00 ENCPL 8K0L50N 2019-01-27 00:00:00 ENCPL 9V5V19O 2019-01-27 00:00:00 ENCPL 1A9N08C 2019-01-27 00:00:00 ENCPL 1P5Q04J 2019-01-27 00:00:00 ENCPL 6L7C88C 2019-01-27 00:00:00 ENCPL 4O5V25V 2019-01-27 00:00:00 ENCPL 7P3X94P 2019-01-27 00:00:00 ENCPL 6O9Y14U 2019-01-27 00:00:00 ENCPL 5I0D84E 2019-01-27 00:00:00 ENCPL 6B1U39N 2019-01-27 00:00:00 ENCPL 9A1U59U 2019-01-27 00:00:00 ENCPL 5N8E62M 2019-01-27 00:00:00 ENCPL 3U7Z16W 2019-01-27 00:00:00 ENCPL 1R9L10O 2019-01-27 00:00:00 ENCPL 7N0D44K 2019-01-27 00:00:00 ENCPL 7U5R22J 2019-01-27 00:00:00 ENCPL 7L1K15G 2019-01-27 00:00:00 ENCPL 9Y8F36A 2019-01-27 00:00:00 ENCPL 3M4S89M 2019-01-27 00:00:00 ENCPL 0P9R55X 2019-01-27 00:00:00 ENCPL 7O2V36L 2019-01-27 00:00:00 ENCPL 3S3G43Z 2019-01-27 00:00:00 ENCPL 7C9F55H 2019-01-27 00:00:00 ENCPL 4G6Z09P 2019-01-27 00:00:00 ENCPL 4B1E70U 2019-01-27 00:00:00 ENCPL 1B8D03H 2019-01-27 00:00:00 ENCPL 6G3D35M 2019-01-27 00:00:00 ENCPL 4Y8V06R 2019-01-27 00:00:00 ENCPL 8T1X94J 2019-01-27 00:00:00 ENCPL 8X6O55E 2019-01-27 00:00:00 ENCPL 4X7G23Q 2019-01-27 00:00:00 ENCPL POCT-GLUCOSE METER 2019-01-25 21:20:00 Andreia Finley [facility] HEMODIALYSIS INPATIENT 2019-01-25 20:35:21 WilIrena [facility] POCT-GLUCOSE METER 2019-01-25 18:08:00 Silvinakayla [facility] POCT-GLUCOSE METER 2019-01-25 11:05:00 Malia [facility] POCT-GLUCOSE METER 2019-01-25 08:00:00 Silvina [facility] BASIC METABOLIC PANEL (7) 2019-01-25 04:26:00 [facility] CBC W/PLT COUNT & AUTO DIFFERENTIAL 2019-01-25 04:26:00 [facility] POCT-GLUCOSE METER 2019-01-24 21:23:00 [facility] POCT-GLUCOSE METER 2019-01-24 17:09:00 Silvina [facility] POCT-GLUCOSE METER 2019-01-24 12:17:00 [facility] XR FOOT LEFT 3 VIEW 2019-01-24 10:49:00 Kj Ramirez [facility] POCT-GLUCOSE METER 2019-01-24 09:52:00 [facility] 2019-01-24 08:35:00 Kj Ramirez [facility] DEBRIDEMENT/I&D,WOUND EXTREMITY LOWER 2019-01-24 07:30:00 Kj Ramirez [facility] SKIN GRAFT,SKIN SUBSTITUTE 2019-01-24 07:30:00 Kj Ramirez [facility] BASIC METABOLIC PANEL (7) 2019-01-24 03:21:00 Nalam[facility] CBC W/PLT COUNT & AUTO DIFFERENTIAL 2019-01-24 03:21:00 Nalkayla, R oopa [facility] POCT-GLUCOSE METER 2019-01-23 21:17:00 Nalam, Andreia [facility] POCT-GLUCOSE METER 2019-01-23 17:34:00 Nalam[facility] POCT-GLUCOSE METER 2019-01-23 12:24:00 Nalam, [facility] POCT-GLUCOSE METER 2019-01-23 08:13:00 Nal, [facility] BASIC METABOLIC PANEL (7) 2019-01-23 04:34:00 Nal [facility] CBC W/PLT COUNT & AUTO DIFFERENTIAL 2019-01-23 04:34:00 Nalam, [facility] POCT-GLUCOSE METER 2019-01-22 21:10:00 Nal, [facility] POCT-GLUCOSE METER 2019-01-22 15:52:00 Nal, [facility] POCT-GLUCOSE METER 2019-01-22 12:14:00 Nal, [facility] POCT-GLUCOSE METER 2019-01-22 07:05:00 [facility] BASIC METABOLIC PANEL (7) 2019-01-22 04:42:00 Silvina [facility] CBC W/PLT COUNT & AUTO DIFFERENTIAL 2019-01-22 04:42:00 Malia, R oopa [facility] POCT-GLUCOSE METER 2019-01-21 23:00:00 [facility] TRANSFUSION SERVICE REPORT - SCAN 2019-01-21 18:03:41 Provid er [facility] POCT-GLUCOSE METER 2019-01-21 17:42:00 Nal, [facility] POCT-GLUCOSE METER 2019-01-21 12:11:00 Nalam, [facility] POCT-GLUCOSE METER 2019-01-21 06:57:00 [facility] BASIC METABOLIC PANEL (7) 2019-01-21 04:13:00 [facility] CBC W/PLT COUNT & AUTO DIFFERENTIAL 2019-01-21 04:13:00 Sidra Finley [facility] POCT-GLUCOSE METER 2019-01-20 19:59:00 [facility] TRANSFUSION SERVICE REPORT - SCAN 2019-01-20 18:03:22 Provid er, Default Scanning [facility] POCT-GLUCOSE METER 2019-01-20 14:37:00 [facility] POCT-ACT 2019-01-20 13:08:00 [facility] HEMOGLOBIN AND HEMATOCRIT 2019-01-20 13:04:01 Kody Peña [facility] PERIPHERAL ANGIOS & IVUS 2019-01-20 12:34:00 Kody Peña [facility] POCT-GLUCOSE METER 2019-01-20 11:27:00 [facility] HEMODIALYSIS INPATIENT 2019-01-20 09:12:55 Irena De La Torre [facility] POCT-GLUCOSE METER 2019-01-20 07:41:00 [facility] BASIC METABOLIC PANEL (7) 2019-01-20 04:09:00 [facility] VANCOMYCIN LEVEL, RANDOM 2019-01-20 04:09:00 Ira Zhang [facility] CBC W/PLT COUNT & AUTO DIFFERENTIAL 2019-01-20 04:09:00 [facility] PREPARE LEUKO-REDUCED RBC 2019-01-19 23:54:00 [facility] POCT-GLUCOSE METER 2019-01-19 21:44:00 Silvina [facility] TRANSFUSION SERVICE REPORT - SCAN 2019-01-19 17:54:05 Provid er, Default Scanning [facility] POCT-GLUCOSE METER 2019-01-19 17:28:00 Silvinakayla [facility] POCT-GLUCOSE METER 2019-01-19 11:43:00 Silvina [facility] POCT-GLUCOSE METER 2019-01-19 07:29:00 Silvina [facility] CALCIUM, IONIZED 2019-01-19 03:18:00 [facility] [place]ESIUM 2019-01-19 03:18:[address] [facility] PHOSPHORUS 2019-01-19 03:18:00 [facility] BASIC METABOLIC PANEL (7) 2019-01-19 03:18:00 Silvina [facility] VANCOMYCIN LEVEL, RANDOM 2019-01-19 03:18:00 Ira Zhang [facility] CBC W/PLT COUNT & AUTO DIFFERENTIAL 2019-01-19 03:18:00 Sidra Finley [facility] HEMODIALYSIS INPATIENT 2019-01-18 22:32:00 Nicole Buckley CH, I [facility] POCT-GLUCOSE METER 2019-01-18 22:28:00 Malia [facility] TRANSFUSE LEUKO-REDUCED RED BLOOD CELLS 2019-01-18 21:34:50 [facility] TYPE AND SCREEN, AUTOMATED 2019-01-18 18:25:00 Silvina [facility] POCT-GLUCOSE METER 2019-01-18 16:33:00 [facility] POCT-GLUCOSE METER 2019-01-18 12:22:00 Silvina [facility] XR FOOT LEFT 3 VIEW 2019-01-18 11:09:00 Kj Ramirez [facility] SURGICALLY OBTAINED CULTURE + GRAM STAIN 2019-01-18 09:17:36 Kj Leblanc [facility] ANAEROBIC CULTURE 2019-01-18 09:17:36 Kj Ramirez [facility] SURGICALLY OBTAINED CULTURE + GRAM STAIN 2019-01-18 09:15:04 Kj Leblanc [facility] ANAEROBIC CULTURE 2019-01-18 09:15:04 Kj Ramirez [facility] TISSUE EXAM 2019-01-18 09:15:00 Kj Ramirez [facility] I&D,BONE FOOT 2019-01-18 08:00:00 Kj Ramirez [facility] VANCOMYCIN LEVEL, RANDOM 2019-01-18 03:19:00 Orestes Kovacs [facility] CALCIUM, IONIZED 2019-01-18 03:19:00 [facility] MAGNESIUM 2019-01-18 03:19:[address] [facility] PHOSPHORUS 2019-01-18 03:19:[address] [facility] HEPATITIS B SURFACE ANTIGEN 2019-01-18 03:19:00 Nicole Buckley [facility] BASIC METABOLIC PANEL (7) 2019-01-18 03:19:00 [facility] CBC W/PLT COUNT & AUTO DIFFERENTIAL 2019-01-18 03:19:00 NalamSidra oaftab [facility] POCT-GLUCOSE METER 2019-01-17 23:17:00 Nalam, Andreia [facility] POCT-GLUCOSE METER 2019-01-17 20:21:00 Nalam[facility] POCT-GLUCOSE METER 2019-01-17 18:17:00 Nalam, Andreia [facility] POCT-GLUCOSE METER 2019-01-17 10:10:00 Nalam, Andreia [facility] POCT-GLUCOSE METER 2019-01-17 05:14:00 [facility] BASIC METABOLIC PANEL (7) 2019-01-17 05:09:00 TrungclevelandSammy [facility] CALCIUM, IONIZED 2019-01-17 05:09:00 [facility] MAGNESIUM 2019-01-17 05:09:[address] [facility] PHOSPHORUS 2019-01-17 05:09:[address] [facility] CBC W/PLT COUNT & AUTO DIFFERENTIAL 2019-01-17 05:09:00 Jose kaur [facility] [place]ERIAL DOPPLER LEG, LEFT 2019-01-17 00:56:00 [facility] BLOOD CULTURE 2019-01-17 00:17:00 [facility] COMPREHENSIVE METABOLIC PANEL 2019-01-16 21:21:00 MyahBailey [facility] PT/APTT 2019-01-16 21:21:00 [facility] MAGNESI[facility] 2019-01-16 21:21:00 [facility] C-REACTIVE PROTEIN 2019-01-16 21:21:00 [facility] CBC W/PLT COUNT & AUTO DIFFERENTIAL 2019-01-16 21:21:00 [facility] XR FOOT LEFT 3 VIEW 2019-01-16 18:22:00 [facility] I [facility] X-ray of chest, single view 2018-11-24 00:00:00 ORESTES GONZALEZ [facility] FEM/POPL REVAS W/ATHER 2018-09-15 00:00:00 MARILYN ARCE [facility] TIB/PER REVASC W/ATHER 2018-09-15 00:00:00 MARILYN ARCE [facility] TIBPER REVASC W/ATHER ADD-ON 2018-09-15 00:00:00 MARILYN ACRE [facility] CONTRAST EXAM ABDOMINL AORTA 2018-09-15 00:00:00 [facility] ARTERY X-RAYS ARMS/LEGS 2018-09-15 00:00:00 [facility] Plan of Care Planned Activity Planned Date Details Comments Source Future Scheduled Test 2022-08-07 00:00:00 Lipid panel (proce dure) [code = 58335921] [facility] Future Scheduled Test 2020-02-08 00:00:00 Hemoglobin A1c efrain surement (procedure) [code = 41008294] [facility] Scheduled Test 2019-10-31 00:00:00 INFLUENZA VACCINE (#1) [code = INFLUENZA VACCINE (#1)] [facility] Scheduled Test 2012-04-30 00:00:00 MEDICARE ANNUAL WE LLNESS (YEAR 2 or FIRST YEAR if no IPPE) [code = MEDICARE ANNUAL WELLNESS (YEAR 2 or FIRST YEAR if no IPPE)] [facility] Scheduled Test 2012-03-25 23:17:42 Plan of Care [code = 1877 6-5] [facility] Scheduled Test 2012-02-21 19:42:52 Plan of Care [code = 1877 6-5] [facility] Scheduled Test 2012-01-13 18:33:51 Plan of Care [code = 1877 6-5] [facility] Scheduled Test 1972 00:00:00 DIABETIC EYE EXAM [code = DIABETIC EYE EXAM] [facility] Scheduled Test 1972 00:00:00 Diabetic foot exam ination (regime/therapy) [code = 760381152] [facility] Future Scheduled Test 1972 00:00:00 Urine screening fo r protein (procedure) [code = 594325187] [facility] Future Scheduled Test 1968 00:00:00 PNEUMOCOCCAL VACCI NE 2-64 YEARS AT RISK (1 of 1 - PPSV23) [code = PNEUMOCOCCAL VACCINE 2-64 YEARS AT RISK (1 of 1 - PPSV23)] [facility] Future Scheduled Test 1962 00:00:00 Screening for vance gnant neoplasm of colon (procedure) [code = 614039044] [facility] Encounters Start Date/Time End Date/Time Encounter Type Admission Type [facility] Care Department Encounter ID Source 2019-10-10 10:00:53 2019-10-10 10:20:53 Office Visit Jose Alejandro Ibarra [facility] [id number] 2019-09-19 12:36:31 2019-09-19 13:33:52 Office Visit Jose Alejandro Ibarra [facility] [id number] 2019-09-04 13:53:07 2019-09-04 15:09:08 Office Visit Roland Butler [facility] [id number] 2019-08-18 12:47:50 2019-08-18 15:42:41 Office Visit Álvaro Salinas ams [facility] [id number] 2019-07-20 10:44:55 2019-07-20 15:45:33 Office Visit Kj Ramirez [facility] [id number] 2019-05-11 12:20:34 2019-05-11 14:24:17 Office Visit Kj Ramirez [facility] [id number] 2019-04-24 10:57:19 2019-04-24 17:18:15 Office Visit Roland Butler [facility] [id number] 2019-03-27 15:00:38 2019-03-27 17:01:56 Office Visit Kj Ramirez [facility] [id number] 2019-01-06 15:29:00 2019-01-28 23:59:00 Discharged Recurring [facility] [id number] [facility] 2019-01-10 05:55:00 2019-01-10 05:55:00 Outpatient [facility] CAR [facility] 2018-11-24 18:09:00 2018-11-24 23:50:00 Departed Emergency Room 1 SHARMIN HO [facility] [id number] [facility] 2018-09-15 07:11:00 2018-09-15 07:11:00 Registered Surgical Day Care [facility] [id number] [facility] 2018-03-03 14:02:00 2018-03-03 14:02:00 Registered Clinic 3 OLGA CRANE [facility] [id number] [facility] 2012-03-25 17:18:00 2012-03-25 17:17:42 Outpatient [facility] [id number] 2012-02-21 13:43:09 2012-02-21 13:42:52 Outpatient [facility] [id number] 2012-01-13 12:34:06 2012-01-13 12:33:51 Outpatient [facility] [id number] Results Test Description Test Time Test Comments Results Result Comments Source CHEST SINGLE (PORTABLE) 2019-10-12 20:37:00 [place] [address] Patient Name: ADID CARLSON JR MR #: [id number] : 1960 Age/Sex: 59/M Req #: [id number] Adm Physician: Ordered by: Connie Portillo MD Report #: [id number] Location: ER Room/Bed: Procedure: [id number] DX/CHEST SINGLE (PORTABLE) Exam Date: 10/12/19 Exam Time: 1944 REPORT STATUS: Signed EXAMINATION: CHEST SINGLE (PORTABLE) INDICATION: Shortness of breath. COMPARISON: 11/24/2018. FINDINGS: TUBES and LINES: None. LUNGS: Patchy airspace opacity in the right lung base. The left lung is clear. PLEURA: No pleural effusion or pneumothorax. HEART AND MEDIASTINUM: The cardiomediastinal silhouette is unremarkable. BONES AND SOFT TISSUES: No acute osseous lesion. Soft tissues are unremarkable. UPPER ABDOMEN: No free air under the diaphragm. IMPRESSION: Patchy airspace opacity in the right lung base which may represent atelectasis and/or pneumonia in the proper clinical context. Signed by: Karthik Moctezuma MD on 10/12/2019 8:42 PM Dictated By: KARTHIK MOCTEZUMA MD 41 Transcribed By: HEAVEN on 10/12/192041 COPY TO: CONNIE PORTILLO MD ECG 12 lead 2019-10-09 06:35:48 Interface, E xternal Ris In - 10/09/2019 6:35 AM CDTVentricular Rate 80 BPMAtrial Rate 80 BPMP-R Interval 228 msQRS Duration 98 msQ-T Interval 386 msQTC Calculation(Bazett) 445 msP Montgomery 48 degreesR Montgomery - 26 degreesT Montgomery 53 degreesSinus rhythm with 1st degree A-V blockPoor R wave progression 02 Feb 2019When compared with ECG of 07-APR-2019 06:54,No significant change was foundConfirmed by MD LIZTEH, [facility] ([id number]) on 10/09/2019 6:35:43 AM [facility] Dontrell r Prepare Leuko-Red RBC 2019-10-08 23:54:00 Test Item Unit ABO (test code = 3304897) O Pos UNIT NUMBER (test code = 934-0) [id number] Status (test code = 4217686) TX_TIMEINCHART Blood Bank Product (test code = 2263) RED BLOOD CELLS PRODUCT CODE (test code = 933-2) [id number] CROSSMATCH (test code = 2264) COMPATIBLE [place] [id number] 16:09:00* Test Item Value Reference Range Interpretation Comments Troponin I (test code = 50941-0) 0.07 ng/mL 0-0.03 H VLADIMIR (test code [...] failure, acidosis, acute neurological disease, and persistent tachyarrhythmia.L D Rn ID - TREVONG Lab Interpretation (test code = 24394-3) Abnormal [facility] [id number] 16:09:00* Test Item Value Reference Range Interpretation [...] acidosis, acute neurological disease, and per sistent tachyarrhythmia.L D Rn ID - ROSIANGPOC-Glucose [id number] 15:52:00* Test Item Value Reference Range Interpretation Comments POC-Glucose Meter (test code = 1538) 174 mg/dL 70-110 H : TESTED AT [facility] [address] [facility], [address]: L D Rn/Engineering And Development Director ID = [id number] for LAURA SHEETS Lab Interpretation (test code = 70738-6) [facility]normal [facility] [id number] 15:52:00* Test Item Value Reference Range Interpretation Comments POC-GLUCOSE METER (BEAKER) (test code = 1538) 174 mg/dL 70-110 H : TESTED AT [facility] [address] [facility], [address]: L D Rn/Engineering And Development Director ID = [id number] for LAURA SHEETS Hemoglobin and eiekmmwzqb8024-05-41 13:50:00* Test Item Value Reference Range Interpretation Comments Hemoglobin (test code = 786-4) 7.2 13.7- 17.5 GM/DL L Hematocrit (test code = 4544-3) 21.2 % 40.1-51 L VLADIMIR (test code = VLADIMIR) L D Rn ID - [id number] Lab Interpretation (test code = 26385-0) Abnormal [facility]MO[facility] AND [id number] 13:50:00* Test Item Value Reference Range Interpretation Comments HEMOGLOBIN (BEAKER) (test code = 410) 7.2 GM/DL 13.7-17.5 L HEMATOCRIT (BEAKER) (test code = 411) 21.2 % 40.1-51.0 L L D Rn ID - 6000HEMODIALYSIS [id number] 13:45:00Sarmad Arias RN 10/07/2019 2:08 PMTolerated and [...] BUN 24 (H) CREATININE 6.20 (H) 10/07/2019 Sarmad Arias BSN, RN II7S6- Adult Queta [id number] [id number] [facility] [id number] 13:39:00* Test Item Value Reference Range Interpretation Comments POC-GLUCOSE METER (BEAKER) (test code = 1538) 104 mg/dL 70-110 : TESTED AT [facility] [address] [facility], [address]: L D Rn/Engineering And Development Director ID = [id number] for Sarmad Arias SARS-CoV2/RT-PCR (Asymptomatic ONLY)2019-10-07 10:45:00* Test Item Value Reference Range Interpretation Comments SARS-COV2/RT-PCR (test code = 01351-9) Negative N ot Detected, Negative, See external report for linked test SARS-COV-2 PERFORMING LAB (test code = 17497-4) [facility] JANY VLADIMIR (test code = VLADIMIR) Negative [...] of the Act. Fact Sheet for Healthcare Providers:https://www.[facility]/sites/default/files/product/documents/Fact_Shee g_FV_Vixrrsgfh_Ghnw_WLXE-GpN-5.pdf Fact Sheet for Healthcare Patients:https://www.[facility]/sites/default/files/pro duct/documents/Aqjm_Hgybt_Xsrdclfx_Janu_PHWA-UvW-9.pdf Performing Laboratory:[facility], [place] [address] [place], [place] [address]ARS-COV2/RT-PCR ([facility])2019-10-07 10:45:00* Test Item Value Reference Range Interpretation Comments SARS-COV2/RT-PCR (test code = 0654469) Negative N ot Detected, Negative, See external report for linked test SARS-COV-2 PERFORMING LAB (test code = 9897122) [facility] JANY Negative result for this test determines [...] from individuals suspected of COVID-19 by their [facility] provider.This test has not been Food and Drug Administration (FDA) clear ed or approved. This is a modified version of an approved Emergency Use Authori zation (EUA) and is in the process of review by the FDA. Once authorized by [facility] FDA, the issued EUA will be effective until the declaration that circumstances exist justifying the authorization of the emergency use of in vitro diagnostic tests for detection and/or diagnosis of COVID-19 is terminated under Section 564 (b)(2) of the Act or the EUA is revoked under Section 564(g) of the Act.Fact She et for Healthcare Providers:https://www.[facility]/sites/default/files/product/d ocuments/Dmmb_Lbxev_XT_Ybdrshdhe_Tzkq_MPRY-LmA-6.pdfFact Sheet for Healthcare Pa tients:https://www.[facility]/sites/default/files/product/documents/Fact_Sheet_P lvsfhxu_Yxvb_FPPJ-OhR-6.pdfPerforming Laboratory:[place] [address] [facility].[place], [place] [address]CLSA-XPCKOIG [id number] 07:35:00* Test Item Value Reference Range Interpretation Comments POC-GLUCOSE METER (BEAKER) (test code = 1538) 118 mg/dL 70-110 H : TESTED AT [facility] [address] [facility] [facility], [address]: L D Rn/Engineering And Development Director ID = [id number] for LAURA SHEETS TROPONIN [id number] 07:13:00* Test Item Value Reference Range Interpretation Comments TROPONIN I (BEAKER) (test code = 397) 0.08 ng/mL 0.00-0.03 [...] acidosis, acute neurological disease, and per sistent tachyarrhythmia.L D Rn ID - ELIZABETH WBasic Metabolic [id number] 07:08:00* Test Item Value Reference Range Interpretation Comments Sodium (test code = 2951-2) 138 meq/L 136-145 Potassium (test code = 2823-3) 3.7 meq/L 3.5-5.1 Chloride (test code = 2075-0) 97 meq/L 98-107 L CO2 (test code = 8-9) 33 meq/L 22-29 H BUN (test code = 3094-0) 24 mg/dL 7-21 H Creatinine (test code = 2160-0) 6.20 mg/dL 0.57-1.25 H Glucose (test code = 2345-7) 124 mg/dL 70-105 H Calcium (test code = 97621-9) 9.3 mg/dL 8.4-10.2 EGFR (test code = 00121-2) 9 mL/min/1.73 sq m ESTIMATED GFR IS NOT ACCURATE CREATININE CLEARANCE IN PREDICTING GLOMERULAR FILTRATION RATE. ESTIMATED GFR IS NOT APPLICABLE FOR DIALYSIS PATIENTS. VLADIMIR (test code = VLADIMIR) L D Rn ID - ELIZABETH W Lab Interpretation (test code = 45716-5) [facility] [id number] 07:08:00* Test Item Value Reference Range Interpretation [...] GFR IS NOT APPLICABLE FOR DIALYSIS PATIENTS. L D Rn ID - ELIZABETH ZGhvreddur0986-44-58 07:06:00* Test Item Value Reference Range Interpretation Comments Magnesium (test code = 05490-3) 2.1 mg/dL 1.6-2.6 VLADIMIR (test code = VLADIMIR) L D Rn ID - ELIZABETH W Lab Interpretation (test code = 70164-5) Normal [facility]osph[facility]2020-08-08 07:06:00* Test Item Value Reference Range Interpretation Comments Phosphorus (test code = 2777-1) 3.2 mg/dL 2.3-4.7 VLADIMIR (test code = VLADIMIR) L D Rn ID Carla JOHNSON W Lab Interpretation (test code = 33225-4) Normal [facility]OSPHORUS2020-08-08 07:06:00* Test Item Value Reference Range Interpretation Comments PHOSPHORUS (BEAKER) (test code = 604) 3.2 mg/dL 2.3-4.7 L D Rn ID - ELIZABETH [id number] 07:06:00* Test Item Value Reference Range Interpretation Comments MAGNESIUM (BEAKER) (test code = 627) 2.1 mg/dL 1.6-2.6 L D Rn ID Carla JOHNSON WCBC (Hemogram only)2019-10-07 06:09:00* Test Item [...] K/CU MM L MPV (test code = 96637-6) 9.8 fL 9.4-12.4 nRBC (test code = 413) 0 0- 0 /100 WBC Lab Interpretation (test code = 21264-4) Abnormal [facility] (HE[facility] ONLY)2019-10-07 06:09:00* Test Item Value Reference [...] 0 /100 WBC 0 -0 HEMOGLOBIN AND [id number] 05:50:00* Test Item Value Reference Range Interpretation Comments HEMOGLOBIN (BEAKER) (test code = 410) 6.5 GM/DL 13.7-17.5 L HEMATOCRIT (BEAKER) (test code = 411) 19.2 % 40.1-51.0 L L D Rn ID - [id number] 03:49:00* Test Item Value Reference Range Interpretation Comments Ferritin (test code = 2276-4) 2196.05 ng/mL 5-275 H VLADIMIR (test code = VLADIMIR) L D Rn ID - ANTHONY Reddy Lab Interpretation (test code = 76837-3) [facility]2020-08-08 03:49:00* Test Item Value Reference Range Interpretation Comments FERRITIN (BEAKER) (test code = 361) 2196.05 ng/mL 5.00-275.00 H L D Rn ID Carla Wilsonon, TIBC, % sat. (without ferritin)2019-10-07 02:48:00* Test Item Value Reference Range Interpretation Comments Iron (test code = 2498-4) 58.0 ug/dL 40-160 TIBC (test code = 2500-7) 150 ug/dL 250-450 L Iron % Saturation (test code = 2502-3) 39 % 20-55 VLADIMIR (test code = VLADIMIR) L D Rn ID - ANTHONY M Lab Interpretation (test code = 93884-3) [facility], TIBC, % SAT. (WITHOUT FERRITIN)2019-10-07 02:48:00* Test Item Value Reference Range Interpretation Comments IRON (BEAKER) (test code = 547) 58.0 ug/dL 40.0-160.0 TOTAL IRON BINDING CAPACITY (BEAKER) (test code = 769) 150 ug/dL 250-450 L IRON % SATURATION (2) (BEAKER) (test code = 2590) 39 % 20-5 5 L D Rn ID - ANTHONY MTROPONIN [id number] 00:19:00* Test Item Value Reference Range Interpretation [...] acidosis, acute neurological disease, and per sistent tachyarrhythmia.L D Rn ID - LACBC with platelet count + [...] K/CU MM L MPV (test code = 52039-8) 10.2 fL 9.4-12.4 nRBC (test code = [...] % 0-1 Lab Interpretation (test code = 93495-4) Abnormal [facility] W/PLT COUNT & AUTO [id number] 20:36:00* Test Item Value Reference Range Interpretation [...] % 0-1 RAD, CHEST, 1 VIEW, NON [id number] 20:24:00Reason for exam:->ABNORMAL LABShould this be performed [...] acute c ardiopulmonary abnormality. Signed: Carla Wan MDReport Verified Date/T fermín: 10/06/2019 20:24:08 chest 1 view portable / [id number] 20:24:00 Interface, External Ris In - 10/06/2019 8:26 PM CDTFINAL REPORT PATIENT ID: [id number] Chest, 1 view. History: Abnormal lab, anemia. Comparison: Plain radiogr aph the chest dated 02/20/2019.. Findings: The cardiomediastinal silhouette and pulmonary vasculature are within normal limits for a portable exam. The lungs a re clear without evidence of consolidation or effusion. The soft tissues and os seous structures are intact. IMPRESSION: No acute cardiopulmonary abnormality. Signed: Carla Wan MDReport Verified Date/Time: 10/06/2019 20:24:08 [facility]TROP[facility] [id number] 20:04:00* Test Item Value Reference Range Interpretation [...] acidosis, acute neurological disease, and per sistent tachyarrhythmia.L D Rn ID - NTPType and screen, automated (BSC and CECs only)2019-10-06 20:01:00* Test Item Value Reference Range Interpretation Comments ABO/RH AUTOMATED (BEAKER) (test code = 2260) O POSITIVE Ab Scrn (test code = 890-4) NEGATIVE [facility]fieldBASI METABOLIC [id number] 19:59:00* Test Item Value Reference Range Interpretation [...] GFR IS NOT APPLICABLE FOR DIALYSIS PATIENTS. L D Rn ID - NTPECG/EKG Evsamfrzsugkoy5450-69-60 19:07:22Placido Maradiaga MD 10/06/2019 7:40 PMECG/EKG InterpretationDate/Time: 10/06/2019 7:34 PMPerformed by: Placido Maradiaga MDAuthorized by: Placido Maradiaga MD The ECG was interpreted by ED physician. The ECG is interpreted as sinus rhythm. Rate is normal rate. Heart rate is 80 BPM.ST segments normal. T waves normal. Montgomery is left. ECG reviewed and does not meet STEMI criteria. [facility]fieldPrepare [id number] 19:34:00* Test Item Value Reference Range Interpretation Comments Unit ABO (test code = 8649105) O Pos UNIT NUMBER (test code = 934-0) [id number] Status (test code = 9841637) WORK IN PROGRESS Blood Bank Product (test code = 2263) RED BLOOD CELLS PRODUCT CODE (test code = 933-2) [id number] CROSSMATCH (test code = 2264) COMPATIBLE [facility]fieldPOCT-GLUCOSE [id number] 16:50:00* Test Item Value Reference Range Interpretation Comments POC-GLUCOSE METER (BEAKER) (test code = 1538) 113 mg/dL 70-110 H : TESTED AT [address], [address]: L D Rn/Engineering And Development Director ID = [id number] for Sarmad Arias POCT-GLUCOSE [id number] 11:38:00* Test Item Value Reference Range Interpretation Comments POC-GLUCOSE METER (BEAKER) (test code = 1538) 145 mg/dL 70-110 H : TESTED AT [facility] [address] [facility] [facility], [address]: L D Rn/Engineering And Development Director ID = [id number] for PRINCESS JASON POCT-GLUCOSE [id number] 07:57:00* Test Item Value Reference Range Interpretation Comments POC-GLUCOSE METER (BEAKER) (test code = 1538) 98 mg/dL 70-110 : TESTED AT [place] [address] [facility], [address]: L D Rn/Engineering And Development Director ID = [id number] for PRINCESS JASON BASIC METABOLIC [id number] 07:00:00* Test Item Value Reference Range Interpretation [...] GFR IS NOT APPLICABLE FOR DIALYSIS PATIENTS. L D Rn ID - REYNALDO [id number] 06:32:00* Test Item Value Reference Range Interpretation Comments PHOSPHORUS (BEAKER) (test code = 604) 3.3 mg/dL 2.3-4.7 L D Rn ID - REYNALDO LCBC W/PLT COUNT & AUTO [id number] 05:59:00* Test Item Value Reference Range Interpretation [...] code = 2801) 0 % 0-1 POCT-GLUCOSE [id number] 23:38:00* Test Item Value Reference Range Interpretation Comments POC-GLUCOSE METER (BEAKER) (test code = 1538) 121 mg/dL 70-110 H : TESTED AT [address], [address]: L D Rn/Engineering And Development Director ID = [id number] for REYCARLOSY POCT-GLUCOSE [id number] 21:38:00* Test Item Value Reference Range Interpretation Comments POC-GLUCOSE METER (BEAKER) (test code = 1538) 131 mg/dL 70-110 H : TESTED AT [address], [address]: L D Rn/Engineering And Development Director ID = [id number] for REY, ALEXI POCT-GLUCOSE [id number] 17:04:00* Test Item Value Reference Range Interpretation Comments POC-GLUCOSE METER (BEAKER) (test code = 1538) 116 mg/dL 70-110 H : TESTED AT [address], [address]: L D Rn/Engineering And Development Director ID = [id number] for JOEY LEIVA POCT-GLUCOSE [id number] 11:59:00* Test Item Value Reference Range Interpretation Comments POC-GLUCOSE METER (BEAKER) (test code = 1538) 129 mg/dL 70-110 H : TESTED AT [address], [address]: L D Rn/Engineering And Development Director ID = [id number] for Marlon Sheila POCT-GLUCOSE [id number] 08:57:00* Test Item Value Reference Range Interpretation Comments POC-GLUCOSE METER (BEAKER) (test code = 1538) 137 mg/dL 70-110 H : TESTED AT [address], [address]: L D Rn/Engineering And Development Director ID = [id number] for Marlon, Sheila BASIC METABOLIC [id number] 06:43:00* Test Item Value Reference Range Interpretation [...] GFR IS NOT APPLICABLE FOR DIALYSIS PATIENTS. L D Rn ID - PIAYA [id number] 06:10:00* Test Item Value Reference Range Interpretation Comments PHOSPHORUS (BEAKER) (test code = 604) 3.3 mg/dL 2.3-4.7 L D Rn ID - REYNALDO LCBC W/PLT COUNT & AUTO [id number] 05:57:00* Test Item Value Reference Range Interpretation [...] code = 2801) 0 % 0-1 POCT-GLUCOSE [id number] 05:55:00* Test Item Value Reference Range Interpretation Comments POC-GLUCOSE METER (BEAKER) (test code = 1538) 99 mg/dL 70-110 : TESTED AT [address], [address]: L D Rn/Engineering And Development Director ID = [id number] for REY, ALEXI POCT-GLUCOSE [id number] 23:39:00* Test Item Value Reference Range Interpretation Comments POC-GLUCOSE METER (BEAKER) (test code = 1538) 114 mg/dL 70-110 H : TESTED AT [address], [address]: L D Rn/Engineering And Development Director ID = [id number] for REY, ALEXI POCT-GLUCOSE [id number] 15:54:00* Test Item Value Reference Range Interpretation Comments POC-GLUCOSE METER (BEAKER) (test code = 1538) 112 mg/dL 70-110 H : TESTED AT [address], [address]: L D Rn/Engineering And Development Director ID = [id number] for ZAN TATE POCT-GLUCOSE [id number] 11:29:00* Test Item Value Reference Range Interpretation Comments POC-GLUCOSE METER (BEAKER) (test code = 1538) 142 mg/dL 70-110 H : TESTED AT [facility] [address] [facility], [address]: L D Rn/Engineering And Development Director ID = [id number] for ZAN TATE POCT-GLUCOSE [id number] 08:13:00* Test Item Value Reference Range Interpretation Comments POC-GLUCOSE METER (BEAKER) (test code = 1538) 85 mg/dL 70-110 : TESTED AT [facility] [address] [facility], [address]: L D Rn/Engineering And Development Director ID = [id number] for ZAN TATE BASIC METABOLIC [id number] 07:06:00* Test Item Value Reference Range Interpretation [...] GFR IS NOT APPLICABLE FOR DIALYSIS PATIENTS. L D Rn ID - ANTHONY [id number] 07:03:00* Test Item Value Reference Range Interpretation Comments PHOSPHORUS (BEAKER) (test code = 604) 2.4 mg/dL 2.3-4.7 L D Rn ID - ANTHONY [id number] 07:03:00* Test Item Value Reference Range Interpretation Comments MAGNESIUM (BEAKER) (test code = 627) 2.0 mg/dL 1.6-2.6 L D Rn ID - ANTHONY MCBC W/PLT COUNT & AUTO [id number] 06:31:00* Test Item Value Reference Range Interpretation [...] code = 2801) 0 % 0-1 POCT-GLUCOSE [id number] 01:39:00* Test Item Value Reference Range Interpretation Comments POC-GLUCOSE METER (BEAKER) (test code = 1538) 132 mg/dL 70-110 H : TESTED AT [place] [address] [facility], [address]: L D Rn/Engineering And Development Director ID = [id number] for CHRIS SALDANA HEMODIALYSIS [id number] 23:37:07Arlene Hays RN 08/11/2019 11:37 PMPatient is [...] the treatment well. Arlene Hays RN [facility] [id number] 22:48:00* Test Item Value Reference Range Interpretation Comments POC-GLUCOSE METER (BEAKER) (test code = 1538) 112 mg/dL 70-110 H : TESTED AT [facility] [address] [facility], [address]: L D Rn/Engineering And Development Director ID = [id number] for Palmer Carvajal POCT-GLUCOSE [id number] 19:55:00* Test Item Value Reference Range Interpretation Comments POC-GLUCOSE METER (BEAKER) (test code = 1538) 131 mg/dL 70-110 H : TESTED AT [place] [address] [facility], [address]: L D Rn/Engineering And Development Director ID = [id number] for CHRIS SALDANA POCT-GLUCOSE [id number] 16:17:00* Test Item Value Reference Range Interpretation Comments POC-GLUCOSE METER (BEAKER) (test code = 1538) 159 mg/dL 70-110 H : TESTED AT [address], [address]: L D Rn/Engineering And Development Director ID = [id number] for STEELE, EARNEST POCT-GLUCOSE [id number] 12:11:00* Test Item Value Reference Range Interpretation Comments POC-GLUCOSE METER (BEAKER) (test code = 1538) 154 mg/dL 70-110 H : TESTED AT [address], [address]: L D Rn/Engineering And Development Director ID = [id number] for STEELE, EARNEST HEMOGLOBIN AND [id number] 08:47:00* Test Item Value Reference Range Interpretation Comments HEMOGLOBIN (BEAKER) (test code = 410) 6.8 GM/DL 13.7-17.5 L HEMATOCRIT (BEAKER) (test code = 411) 20.4 % 40.1-51.0 L L D Rn ID - 6000POCT-GLUCOSE [id number] 08:20:00* Test Item Value Reference Range Interpretation Comments POC-GLUCOSE METER (BEAKER) (test code = 1538) 123 mg/dL 70-110 H : TESTED AT [address], [address]: L D Rn/Engineering And Development Director ID = [id number] for STEELE, EARNEST CBC W/PLT COUNT & AUTO [id number] 06:21:00* Test Item Value Reference Range Interpretation [...] = 2801) 1 % 0-1 BASIC METABOLIC [id number] 05:44:00* Test Item Value Reference Range Interpretation [...] GFR IS NOT APPLICABLE FOR DIALYSIS PATIENTS. L D Rn ID - ANTHONY [id number] 05:41:00* Test Item Value Reference Range Interpretation Comments PHOSPHORUS (BEAKER) (test code = 604) 3.2 mg/dL 2.3-4.7 L D Rn ID - ANTHONY [id number] 05:41:00* Test Item Value Reference Range Interpretation Comments MAGNESIUM (BEAKER) (test code = 627) 2.1 mg/dL 1.6-2.6 L D Rn ID - ANTHONY MRAD, FOOT, MIN 3 VIEWS, [id number] 21:05:00Reason for exam:->r/o fractureFINAL REPORT CLINICAL HISTORY: [...] radiopaque foreign body. Signed: Ar Saldana MDReport Verified Date/Time: 08/10/2019 21:05:47 foot 3 views [id number] 21:05:00Interface, External Ris In - 08/10/2019 9:08 [...] MDReport Mehreen ified Date/Time: 08/10/2019 21:05:47 [facility] [id number] 20:23:00* Test Item Value Reference Range Interpretation Comments POC-GLUCOSE METER (BEAKER) (test code = 1538) 133 mg/dL 70-110 H : TESTED AT [address], [address]: L D Rn/Engineering And Development Director ID = [id number] for CHRIS SALDANA [id number] 20:09:00* Test Item Value Reference Range Interpretation Comments FERRITIN (BEAKER) (test code = 361) 2372.11 ng/mL 5.00-275.00 H L D Rn ID - BSPOCT-GLUCOSE [id number] 17:06:00* Test Item Value Reference Range Interpretation Comments POC-GLUCOSE METER (BEAKER) (test code = 1538) 138 mg/dL 70-110 H : TESTED AT [address], [address]: L D Rn/Engineering And Development Director ID = [id number] for ERICKSON, JUCEL BILLIE POCT-GLUCOSE [id number] 12:21:00* Test Item Value Reference Range Interpretation Comments POC-GLUCOSE METER (BEAKER) (test code = 1538) 129 mg/dL 70-110 H : TESTED AT [address], [address]: L D Rn/Engineering And Development Director ID = [id number] for ERICKSON, JUCEL BILLIE POCT-GLUCOSE [id number] 08:00:00* Test Item Value Reference Range Interpretation Comments POC-GLUCOSE METER (BEAKER) (test code = 1538) 104 mg/dL 70-110 : TESTED AT [facility] [address] [place], [address]: L D Rn/Engineering And Development Director ID = [id number] for GAVIN ERICKSON Vitamin B12 and [id number] 07:22:00* Test Item Value Reference Range Interpretation Comments Vitamin B12 (test code = 2132-9) 484 pg/mL 213-816 Folate (test code = 2284-8) 11.60 ng/mL >=7.00 VLADIMIR (test code = VLADIMIR) L D Rn ID - REYNALDO L Lab Interpretation (test code = 86740-0) [facility] [id number] 07:22:00* Test Item Value Reference Range Interpretation Comments VITAMIN B12 (BEAKER) (test code = 774) 484 pg/mL 213-816 FOLATE (BEAKER) (test code = 362) 11.60 ng/mL >=7.00 L D Rn ID Carla ROWELL, TIBC, % SAT. (WITHOUT FERRITIN)2019-08-10 06:55:00* Test Item Value Reference Range Interpretation Comments IRON (BEAKER) (test code = 547) 126.0 ug/dL 40.0-160.0 TOTAL IRON BINDING CAPACITY (BEAKER) (test code = 769) 125 ug/dL 250-450 L IRON % SATURATION (2) (BEAKER) (test code = 2590) 101 % 20-5 5 H L D Rn ID - REYNALDO [id number] 06:48:00* Test Item Value Reference Range Interpretation Comments PHOSPHORUS (BEAKER) (test code = 604) 3.4 mg/dL 2.3-4.7 L D Rn ID - REYNALDO [id number] 06:48:00* Test Item Value Reference Range Interpretation Comments MAGNESIUM (BEAKER) (test code = 627) 2.2 mg/dL 1.6-2.6 L D Rn ID - REYNALDO LBASIC METABOLIC [id number] 06:48:00* Test Item Value Reference Range Interpretation [...] GFR IS NOT APPLICABLE FOR DIALYSIS PATIENTS. L D Rn ID - PIAYA LCBC W/PLT COUNT & AUTO [id number] 06:26:00* Test Item Value Reference Range Interpretation [...] code = 2801) 0 % 0-1 POCT-GLUCOSE [id number] 21:16:00* Test Item Value Reference Range Interpretation Comments POC-GLUCOSE METER (BEAKER) (test code = 1538) 163 mg/dL 70-110 H : TESTED AT [facility] [address] [facility], [address]: L D Rn/Engineering And Development Director ID = [id number] for JARON MENDENHALL Hepatitis B surface [id number] 17:30:00* Test Item Value Reference Range Interpretation Comments HBsAg Screen (test code = 5195-3) Nonreactive Nonreactive VLADIMIR (test code = VLADIMIR) Specimen is considered negative for HBsAg. Lab Interpretation (test code = 30552-2) [facility] [id number] 17:30:00* Test Item Value Reference Range Interpretation Comments HEPATITIS B SURFACE ANTIGEN (2) (BEAKER) (test code = 2585) Nonreactive Nonreactive Specimen is considered negative for HBsAg.POCT-GLUCOSE [id number] 16:31:00 * Test Item Value Reference Range Interpretation Comments POC-GLUCOSE METER (BEAKER) (test code = 1538) 159 mg/dL 70-110 H : TESTED AT [facility] [address] [facility], [address]: L D Rn/Engineering And Development Director ID = [id number] for FAZALRYLEE CHEUNGOMA Hemoglobin [id number] 15:04:00* Test Item Value Reference Range Interpretation Comments Hemoglobin A1C (test code = 4548-4) 4.8 % 4.3-6.1 Lab Interpretation (test code = 79811-5) [facility] [id number] 15:04:00* Test Item Value Reference Range Interpretation Comments HEMOGLOBIN A1C (BEAKER) (test code = 368) 4.8 % 4.3-6.1 POCT-GLUCOSE [id number] 12:48:00* Test Item Value Reference Range Interpretation Comments POC-GLUCOSE METER (BEAKER) (test code = 1538) 161 mg/dL 70-110 H : TESTED AT [address], [address]: L D Rn/Engineering And Development Director ID = [id number] for MICHAEL CANNON POCT-GLUCOSE [id number] 09:23:00* Test Item Value Reference Range Interpretation Comments POC-GLUCOSE METER (BEAKER) (test code = 1538) 132 mg/dL 70-110 H : TESTED AT [address], [address]: L D Rn/Engineering And Development Director ID = [id number] for MICHAEL CANNON BASIC METABOLIC [id number] 06:29:00* Test Item Value Reference Range Interpretation [...] GFR IS NOT APPLICABLE FOR DIALYSIS PATIENTS. L D Rn ID - ANTHONY epatic function [id number] 06:14:00* Test Item Value Reference Range Interpretation Comments Protein, Total (test code = 2885-2) 6.3 6.0- 8.3 gm/dL Albumin (test code = 58990-0) 3.8 g/dL 3.5-5 Total Bilirubin (test code = 1975-2) 0.9 mg/dL 0.2-1.2 Bilirubin, Direct (test code = 1968-7) 0.4 mg/dL 0.1-0.5 Alkaline Phosphatase (test code = 6768-6) 66 U/L 40-150 AST (test code = 1920-8) 14 U/L 5-34 ALT (test code = 1742-6) 6 U/L 6-55 VLADIMIR (test code = VLADIMIR) L D Rn ID Carla CRUZ M Lab Interpretation (test code = 57353-4) [facility] 06:14:00* Test Item Value Reference Range Interpretation Comments PHOSPHORUS (BEAKER) (test code = 604) 3.8 mg/dL 2.3-4.7 L D Rn ID - ANTHONY [id number] 06:14:00* Test Item Value Reference Range Interpretation Comments MAGNESIUM (BEAKER) (test code = 627) 2.3 mg/dL 1.6-2.6 L D Rn ID Carla CRUZ EPATIC FUNCTION [id number] 06:14:00* Test Item Value Reference Range Interpretation [...] (test code = 347) 6 U/L 6-55 L D Rn ID - ANTHONY MCBC W/PLT COUNT & AUTO [id number] 05:50:00* Test Item Value Reference Range Interpretation [...] code = 2801) 0 % 0-1 POCT-GLUCOSE [id number] 20:45:00* Test Item Value Reference Range Interpretation Comments POC-GLUCOSE METER (BEAKER) (test code = 1538) 141 mg/dL 70-110 H : TESTED AT [facility] [address] [facility], [address]: L D Rn/Engineering And Development Director ID = [id number] for CHRIS SALDANA POCT-GLUCOSE [id number] 17:33:00* Test Item Value Reference Range Interpretation Comments POC-GLUCOSE METER (BEAKER) (test code = 1538) 175 mg/dL 70-110 H : TESTED AT [address], [address]: L D Rn/Engineering And Development Director ID = [id number] for Nicole Barth Lipid [id number] 15:46:00* Test Item Value Reference Range Interpretation Comments Triglycerides (test code = 2571-8) 54 mg/dL Cholesterol (test code = 2093-3) 132 mg/dL HDL (test code = 2085-9) 52 mg/dL LDL Calculated (test code = 09425-0) 69 mg/dL VLADIMIR (test code = VLADIMIR) Triglyceride Reference Range : Low Risk <150 Borderline 150-199 High Risk 200-499 Very High Risk >=500 Cholesterol Reference Range: Low Risk <200 Borderline 200-239 High Risk >240 HDL Cholesterol Reference Range: Low Risk >=60 High Risk <40 LDL Cholesterol Reference Range: Optimal <100 Near Optimal 100-129 Borderline 130-159 High 160-189 Very High >=190 L D Rn ID - BS [facility] [id number] 15:46:00* Test Item Value Reference Range Interpretation [...] Borderline 130-159 High 160-189 Very High >=190 L D Rn ID - BSPOCT-GLUCOSE [id number] 14:11:00* Test Item Value Reference Range Interpretation Comments POC-GLUCOSE METER (BEAKER) (test code = 1538) 113 mg/dL 70-110 H : TESTED AT [address], [address]: L D Rn/Engineering And Development Director ID = [id number] for NICOLE IRWIN POCT-GLUCOSE [id number] 11:55:00* Test Item Value Reference Range Interpretation Comments POC-GLUCOSE METER (BEAKER) (test code = 1538) 117 mg/dL 70-110 H : TESTED AT [address], [address]: L D Rn/Engineering And Development Director ID = [id number] for TARA DOWNS BASIC METABOLIC [id number] 08:56:00* Test Item Value Reference Range Interpretation [...] GFR IS NOT APPLICABLE FOR DIALYSIS PATIENTS. L D Rn ID - ANTHONY MPOCT-GLUCOSE [id number] 07:59:00* Test Item Value Reference Range Interpretation Comments POC-GLUCOSE METER (BEAKER) (test code = 1538) 90 mg/dL 70-110 : TESTED AT [address] [place], [address]: L D Rn/Engineering And Development Director ID = [id number] for KIMO GEE SARS-COV2/RT-PCR ([facility])2019-08-04 16:37:00* Test Item Value Reference Range Interpretation Comments SARS-COV2/RT-PCR (test code = 1563922) Negative Not Detected, N egative SARS-COV-2 PERFORMING LAB (test code = 7697183) CPL [id number] 10:32:00* Test Item Value Reference Range Interpretation Comments Potassium (test code = 2823-3) 4.3 meq/L 3.5-5.1 VLADIMIR (test code = VLADIMIR) L D Rn ID - AAHAMID Lab Interpretation (test code = 26556-1) [facility] 10:32:00* Test Item Value Reference Range Interpretation Comments POTASSIUM (BEAKER) (test code = 379) 4.3 meq/L 3.5-5.1 L D Rn ID - DIIHJWOTibxdaozud3576-84-78 10:16:00* Test Item Value Reference Range Interpretation Comments Hemoglobin (test code = 786-4) 9.0 13.7- 17.5 GM/DL L VLADIMIR (test code = VLADIMIR) L D Rn ID - [id number] Lab Interpretation (test code = 68225-2) [facility]normal [facility] 10:16:00* Test Item Value Reference Range Interpretation Comments HEMOGLOBIN (BEAKER) (test code = 410) 9.0 GM/DL 13.7-17.5 L L D Rn ID - 6000RAD, FOOT, MIN 3 VIEWS, [id number] 14:25:00Left sideReason for Exam:->foot pain,leftFINAL REPORT LEFT [...] of the left foot. Signed: Cielo Thompson Verified Date/Time: 07/20/2019 14:25:27 Reading Location: [facility] Reading Room [address] [place] [address] -GLUCOSE [id number] 11:51:00* Test Item Value Reference Range Interpretation Comments POC-GLUCOSE METER (BEAKER) (test code = 1538) 124 mg/dL 70-110 H : TESTED AT [address], [address]: L D Rn/Engineering And Development Director ID = [id number] for Jarek Kirkland POCT-GLUCOSE [id number] 07:27:00* Test Item Value Reference Range Interpretation Comments POC-GLUCOSE METER (BEAKER) (test code = 1538) 122 mg/dL 70-110 H : TESTED AT [place] [id number] [facility], [address]: L D Rn/Engineering And Development Director ID = [id number] for ROSI KENNEDY BASIC METABOLIC [id number] 07:22:00* Test Item Value Reference Range Interpretation [...] GFR IS NOT APPLICABLE FOR DIALYSIS PATIENTS. L D Rn ID - ANTHONY [facility] (HEMO[facility] ONLY)2019-04-08 06:25:00* Test Item Value Reference [...] 413) 0 /100 WBC 0 -0 POCT-GLUCOSE [id number] 23:01:00* Test Item Value Reference Range Interpretation Comments POC-GLUCOSE METER (BEAKER) (test code = 1538) 130 mg/dL 70-110 H : TESTED AT [facility] [address] [facility], [address]: L D Rn/Engineering And Development Director ID = [id number] for GONZALO SANDOVAL POCT-GLUCOSE [id number] 16:27:00* Test Item Value Reference Range Interpretation Comments POC-GLUCOSE METER (BEAKER) (test code = 1538) 106 mg/dL 70-110 : TESTED AT [facility] [address] [facility], [address]: L D Rn/Engineering And Development Director ID = [id number] for Jarek Kirkland POC ACTIVATED CLOTTING [id number] 11:13:00* Test Item Value Reference Range Interpretation Comments Activated Clotting Time (test code = 441) 257 sec Reference Range: 74-137 seconds, Baseline/[address]-[id number] 11:13:00* Test Item Value Reference Range Interpretation Comments ACTIVATED CLOTTING TIME (BEAKER) (test code = 441) 257 sec Reference Range: 74-137 seconds, Baseline/TESTED AT [place] [address] [id number] 11:13:00* Test Item Value Reference Range Interpretation Comments ACTIVATED CLOTTING TIME (BEAKER) (test code = 441) 213 sec Reference Range: 74-137 seconds, Baseline/TESTED AT [place] [address] [id number] 10:26:00* Test Item Value Reference Range Interpretation Comments ACTIVATED CLOTTING TIME (BEAKER) (test code = 441) 246 sec Reference Range: 74-137 seconds, Baseline/TESTED AT [place] [address] [id number] 09:57:00* Test Item Value Reference Range Interpretation Comments ACTIVATED CLOTTING TIME (BEAKER) (test code = 441) 252 sec Reference Range: 74-137 seconds, Baseline/TESTED AT [place] [address] [id number] 09:42:00* Test Item Value Reference Range Interpretation Comments ACTIVATED CLOTTING TIME (BEAKER) (test code = 441) 241 sec Reference Range: 74-137 seconds, Baseline/TESTED AT [place] [address] BASIC METABOLIC [id number] 07:33:00* Test Item Value Reference Range Interpretation [...] GFR IS NOT APPLICABLE FOR DIALYSIS PATIENTS. L D Rn ID - ANTHONY MCBC W/PLT COUNT & AUTO [id number] 07:08:00* Test Item Value Reference Range Interpretation [...] 6463-4) No growth in 5 days [facility] [id number] 14:00:00* Test Item Value Reference Range Interpretation Comments CULTURE (BEAKER) (test code = 1095) No growth in 5 days BLOOD [id number] 13:00:00* Test Item Value Reference Range Interpretation Comments CULTURE (BEAKER) (test code = 1095) No growth in 5 days POCT-GLUCOSE [id number] 23:24:00* Test Item Value Reference Range Interpretation Comments POC-GLUCOSE METER (BEAKER) (test code = 1538) 186 mg/dL 70-110 H : TESTED AT [facility] [address] [facility], [address]: L D Rn/Engineering And Development Director ID = [id number] for Dede Coyle POCT-GLUCOSE [id number] 13:01:00* Test Item Value Reference Range Interpretation Comments POC-GLUCOSE METER (BEAKER) (test code = 1538) 103 mg/dL 70-110 : TESTED AT [facility] [address] [facility], [address]: L D Rn/Engineering And Development Director ID = [id number] for Valerie Coyleny BASIC METABOLIC [id number] 09:10:00* Test Item Value Reference Range Interpretation [...] GFR IS NOT APPLICABLE FOR DIALYSIS PATIENTS. L D Rn ID - ANTHONY [id number] 09:09:00* Test Item Value Reference Range Interpretation Comments PHOSPHORUS (BEAKER) (test code = 604) 2.6 mg/dL 2.3-4.7 L D Rn ID - ANTHONY MHEMOGLOBIN AND [id number] 07:36:00* Test Item Value Reference Range Interpretation Comments HEMOGLOBIN (BEAKER) (test code = 410) 8.0 GM/DL 13.7-17.5 L HEMATOCRIT (BEAKER) (test code = 411) 23.5 % 40.1-51.0 L L D Rn ID - LeroyPOCT-GLUCOSE [id number] 22:05:00* Test Item Value Reference Range Interpretation Comments POC-GLUCOSE METER (BEAKER) (test code = 1538) 168 mg/dL 70-110 H : TESTED AT [address], [address]: L D Rn/Engineering And Development Director ID = [id number] for Mel Kalina POCT-GLUCOSE [id number] 18:04:00* Test Item Value Reference Range Interpretation Comments POC-GLUCOSE METER (BEAKER) (test code = 1538) 193 mg/dL 70-110 H : Notified RN/MD: TESTED AT [address], [address]: L D Rn/Engineering And Development Director ID = [id number] for HORACE GIOVANY POCT-GLUCOSE [id number] 13:15:00* Test Item Value Reference Range Interpretation Comments POC-GLUCOSE METER (BEAKER) (test code = 1538) 146 mg/dL 70-110 H : TESTED AT [facility] [address] [facility], [address]: L D Rn/Engineering And Development Director ID = [id number] for GIOVANY VU POCT-GLUCOSE [id number] 08:45:00* Test Item Value Reference Range Interpretation Comments POC-GLUCOSE METER (BEAKER) (test code = 1538) 107 mg/dL 70-110 : TESTED AT [facility] [address] [facility], [address]: L D Rn/Engineering And Development Director ID = [id number] for GIOVANY VU BASIC METABOLIC [id number] 05:50:00* Test Item Value Reference Range Interpretation [...] GFR IS NOT APPLICABLE FOR DIALYSIS PATIENTS. L D Rn ID - ANTHONY MHEMOGLOBIN AND [id number] 04:57:00* Test Item Value Reference Range Interpretation Comments HEMOGLOBIN (BEAKER) (test code = 410) 7.3 GM/DL 13.7-17.5 L HEMATOCRIT (BEAKER) (test code = 411) 22.2 % 40.1-51.0 L L D Rn ID - 6000POCT-GLUCOSE [id number] 22:40:00* Test Item Value Reference Range Interpretation Comments POC-GLUCOSE METER (BEAKER) (test code = 1538) 157 mg/dL 70-110 H : TESTED AT [place] [address] [facility], [address]: L D Rn/Engineering And Development Director ID = [id number] for Kalina Leal HEMOGLOBIN AND [id number] 18:07:00* Test Item Value Reference Range Interpretation Comments HEMOGLOBIN (BEAKER) (test code = 410) 8.1 GM/DL 13.7-17.5 L HEMATOCRIT (BEAKER) (test code = 411) 24.4 % 40.1-51.0 L L D Rn ID - 6000POCT-GLUCOSE [id number] 17:47:00* Test Item Value Reference Range Interpretation Comments POC-GLUCOSE METER (BEAKER) (test code = 1538) 188 mg/dL 70-110 H : Notified RN/MD: TESTED AT [facility] [address] [place], [address]: L D Rn/Engineering And Development Director ID = [id number] for GIOVANY VU Vein Mapping Legs [id number] 15:10:03Ejection FractionSLEH ECHO HEARTLAB MKCKESSON CPACSRight Impression1. [...] ALICE ABDUL Age 58 Vis it Number [id number] Gender Male Accession Number [id number] Date of 1960 Referring Jesi De Los Santos MD Room Number 9600 Physician Supervisor [employer] [facility] Nicole Christianson, Physician ProcedureType of Study: Veins: [...] + + + + + + [facility] [id number] 13:22:00* Test Item Value Reference Range Interpretation Comments POC-GLUCOSE METER (BEAKER) (test code = 1538) 156 mg/dL 70-110 H : TESTED AT [place] [address] [facility], [address]: L D Rn/Engineering And Development Director ID = [id number] for HORACE GIOVANY POCT-GLUCOSE [id number] 08:02:00* Test Item Value Reference Range Interpretation Comments POC-GLUCOSE METER (BEAKER) (test code = 1538) 118 mg/dL 70-110 H : TESTED AT [place] [address] [facility], [address]: L D Rn/Engineering And Development Director ID = [id number] for HORACE GIOVANY BASIC METABOLIC [id number] 05:19:00* Test Item Value Reference Range Interpretation [...] GFR IS NOT APPLICABLE FOR DIALYSIS PATIENTS. L D Rn ID - ANTHONY MHEMOGLOBIN AND [id number] 04:36:00* Test Item Value Reference Range Interpretation Comments HEMOGLOBIN (BEAKER) (test code = 410) 7.2 GM/DL 13.7-17.5 L HEMATOCRIT (BEAKER) (test code = 411) 21.9 % 40.1-51.0 L L D Rn ID - 6000POCT-GLUCOSE [id number] 21:47:00* Test Item Value Reference Range Interpretation Comments POC-GLUCOSE METER (BEAKER) (test code = 1538) 158 mg/dL 70-110 H : TESTED AT [address], [address]: L D Rn/Engineering And Development Director ID = [id number] for ALEXI REY HEMOGLOBIN AND [id number] 18:29:00* Test Item Value Reference Range Interpretation Comments HEMOGLOBIN (BEAKER) (test code = 410) 8.1 GM/DL 13.7-17.5 L HEMATOCRIT (BEAKER) (test code = 411) 24.6 % 40.1-51.0 L L D Rn ID - 6000POCT-GLUCOSE [id number] 17:34:00* Test Item Value Reference Range Interpretation Comments POC-GLUCOSE METER (BEAKER) (test code = 1538) 162 mg/dL 70-110 H : TESTED AT [address], [address]: L D Rn/Engineering And Development Director ID = [id number] for HORACE GIOVANY IRON, TIBC, % SAT. (WITHOUT FERRITIN)2019-03-10 17:20:00* Test Item Value Reference Range Interpretation Comments IRON (BEAKER) (test code = 547) 40.0 ug/dL 40.0-160.0 TOTAL IRON BINDING CAPACITY (BEAKER) (test code = 769) 129 ug/dL 250-450 L IRON % SATURATION (2) (BEAKER) (test code = 2590) 31 % 20-5 5 L D Rn ID - [id number] 15:46:00* Test Item Value Reference Range Interpretation Comments FERRITIN (BEAKER) (test code = 361) 2960 ng/mL 5-275 H L D Rn ID - BSPOCT-GLUCOSE [id number] 13:54:00* Test Item Value Reference Range Interpretation Comments POC-GLUCOSE METER (BEAKER) (test code = 1538) 119 mg/dL 70-110 H : TESTED AT [facility] [address] [facility], [address]: L D Rn/Engineering And Development Director ID = [id number] for GIOVANY VU BASIC METABOLIC [id number] 12:12:00* Test Item Value Reference Range Interpretation [...] GFR IS NOT APPLICABLE FOR DIALYSIS PATIENTS. L D Rn ID - NTPCBC W/PLT COUNT & AUTO [id number] 10:03:00* Test Item Value Reference Range Interpretation [...] code = 2801) 0 % 0-1 POCT-GLUCOSE [id number] 08:53:00* Test Item Value Reference Range Interpretation Comments POC-GLUCOSE METER (BEAKER) (test code = 1538) 213 mg/dL 70-110 H : Notified RN/MD: TESTED AT [facility] [address] [place] [address], [address]: L D Rn/Engineering And Development Director ID = [id number] for GIOVANY VU HEMOGLOBIN AND [id number] 08:41:00* Test Item Value Reference Range Interpretation Comments HEMOGLOBIN (CATRINA) (test code = 410) 8.0 GM/DL 13.7-17.5 L HEMATOCRIT (OUSMANEAKER) (test code = 411) 23.8 % 40.1-51.0 L L D Rn ID - 6000Arterial doppler legs [id number] 08:39:07Ejection FractionSLEH ECHO HEARTLAB MKCKESSON CPACSRight Impression1. 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 !87 ! !Monophasic ! !102 ! !Biphasic ! + + + + + + + -------+ + + !Mid [employer] ASSEMBLER ! !143 ! !Bip hasic ! !113 ! !Biphasic ! + + +------ + + + + +-- + + !Dist [employer]LEY[employer] ASSEMBLER ! !95.6 ! !Biphasic ! ! ! [...] Arterial Duplex Demographics Patient Name ADDI CARLSON te of Study 03/09/2019 ALICE ABDUL 45 Age 58 Visit Number [id number] Carie clark Male Accession Number [id number] Date of 08/09 Referring Jesi De Los Santos MD Room Number 5496 Physician S onographer Zuleyma Staley RVT Interpreting Hailee Parisi RVT Physician ProcedureType of Study: Extr emities Arteries: Lower Extremities Arterial Duplex, ARTERIAL DOPPLER LEGS, BILA TERAL. Indications for Study:PAD.Patient Status:Routine.Study Location:Portable. 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 !87 ! !Monophasic ! !102 ! !Biphasic ! + + + + + + + -----+ + + !Mid [employer]LEYBALL ASSEMBLER ! !143 ! !Bipha sic ! !113 ! !Biphasic ! + + +-------- + + + + +---- + + !Dist VOLLEYBALL ASSEMBLER ! !95.6 ! !Biphasic ! ! ! [...] + !Dist Peroneal ! + ---------+ [facility] [id number] 23:38:00* Test Item Value Reference Range Interpretation Comments HEMOGLOBIN (BEAKER) (test code = 410) 7.9 GM/DL 13.7-17.5 L HEMATOCRIT (BEAKER) (test code = 411) 23.9 % 40.1-51.0 L L D Rn ID - 6000POCT-GLUCOSE [id number] 23:27:00* Test Item Value Reference Range Interpretation Comments POC-GLUCOSE METER (BEAKER) (test code = 1538) 173 mg/dL 70-110 H : TESTED AT [place] [address] [facility], [address]: L D Rn/Engineering And Development Director ID = [id number] for ODETOLA, OMER POCT-GLUCOSE [id number] 20:04:00* Test Item Value Reference Range Interpretation Comments POC-GLUCOSE METER (BEAKER) (test code = 1538) 161 mg/dL 70-110 H : TESTED AT [facility] [address] [facility], [address]: L D Rn/Engineering And Development Director ID = [id number] for ODETOLA, OMER Prothrombin time/[id number] 15:22:00* Test Item Value Reference Range Interpretation [...] heart valves. Lab Interpretation (test code = 55841-1) Abnormal [facility]OM[facility]/[id number] 15:22:00* Test Item Value Reference Range Interpretation [...] for patie nts wiht mechanical heart valves.POCT-GLUCOSE [id number] 13:25:00* Test Item Value Reference Range Interpretation Comments POC-GLUCOSE METER (BEAKER) (test code = 1538) 159 mg/dL 70-110 H : TESTED AT [facility] [address] [facility], [address]: L D Rn/Engineering And Development Director ID = [id number] for KANDACE MATTHEWS BASIC METABOLIC [id number] 12:56:00* Test Item Value Reference Range Interpretation [...] GFR IS NOT APPLICABLE FOR DIALYSIS PATIENTS. L D Rn ID - DBCBC W/PLT COUNT & AUTO [id number] 12:35:00* Test Item Value Reference Range Interpretation [...] code = 2801) 1 % 0-1 POCT-GLUCOSE [id number] 08:02:00* Test Item Value Reference Range Interpretation Comments POC-GLUCOSE METER (BEAKER) (test code = 1538) 136 mg/dL 70-110 H : TESTED AT [facility] [address] [facility], [address]: L D Rn/Engineering And Development Director ID = [id number] for Dede Coyle HEPATITIS B SURFACE [id number] 07:00:00* Test Item Value Reference Range Interpretation Comments HEPATITIS B SURFACE ANTIGEN (2) (BEAKER) (test code = 2585) Nonreactive Nonreactive HEMOGLOBIN AND [id number] 06:25:00* Test Item Value Reference Range Interpretation Comments HEMOGLOBIN (BEAKER) (test code = 410) 7.3 GM/DL 13.7-17.5 L HEMATOCRIT (BEAKER) (test code = 411) 22.3 % 40.1-51.0 L RAD, FOOT, MIN 3 VIEWS, [id number] 22:35:00Reason for exam:->left foot wound FINAL REPORT [...] MDReport Verified Date/Time: 09/2019 22:35:29 Reading Location: [address] Consult Reading Room Electr onically signed by: RELL BARROSO M.D. on 03/08/2019 10:35 PM POCT-GLUCOSE [id number] 20:41:00* Test Item Value Reference Range Interpretation Comments POC-GLUCOSE METER (BEAKER) (test code = 1538) 132 mg/dL 70-110 H : TESTED AT [place] [address] [facility], [address]: L D Rn/Engineering And Development Director ID = [id number] for GILMA MENDOZA POCT-GLUCOSE [id number] 11:51:00* Test Item Value Reference Range Interpretation Comments POC-GLUCOSE METER (BEAKER) (test code = 1538) 193 mg/dL 70-110 H : TESTED AT [place] [id number] [facility], [address]: L D Rn/Engineering And Development Director ID = [id number] for PRINCESS JASON POCT-GLUCOSE [id number] 09:53:00* Test Item Value Reference Range Interpretation Comments POC-GLUCOSE METER (BEAKER) (test code = 1538) 137 mg/dL 70-110 H : TESTED AT [address], [address]: L D Rn/Engineering And Development Director ID = [id number] for NATHANIEL NAYELI HEMOGLOBIN AND [id number] 06:31:00* Test Item Value Reference Range Interpretation Comments HEMOGLOBIN (BEAKER) (test code = 410) 6.7 GM/DL 13.7-17.5 L HEMATOCRIT (BEAKER) (test code = 411) 20.7 % 40.1-51.0 L [id number] 01:54:00* Test Item Value Reference Range Interpretation Comments PHOSPHORUS (BEAKER) (test code = 604) 2.4 mg/dL 2.3-4.7 BASIC METABOLIC [id number] 23:27:00* Test Item Value Reference Range Interpretation [...] GFR IS NOT APPLICABLE FOR DIALYSIS PATIENTS. [id number] 22:58:00* Test Item Value Reference Range Interpretation Comments Protime (test code = 5902-2) 15.2 11.9- 14.2 seconds H INR (test code = 6301-6) 1.2 <=5.9 PTT (test code = 19021-6) 43.2 22.5- 36.0 seconds H VLADIMIR (test code = VLADIMIR) Effective 07/27/2018: PT Refe rence Range ChangeNew: 11.9- 14.2 Previous: 11.7-14.7 RECOMMENDED COUMADIN/WARFARIN INR THERAPY RANGESSTANDARD DOSE: 2.0-3.0 Includes: PROPHYLAXIS for venous thrombosis, sys temic embolization; TREATMENT for venous thrombosis and/or pulmonary embolus.HIGH RISK: Target INR is 2.5-3.5 for patients wiht mechanical heart valves. Lab Interpretation (test code = 09789-0) [id number]:58:00* Test Item Value Reference Range Interpretation [...] mechanical heart valves.CBC W/PLT COUNT & AUTO [id number] 22:57:00* Test Item Value Reference Range Interpretation [...] and warmed to correct for cold agglutinin.Tissue [id number] 10:22:00 * Test Item Value Reference Range Interpretation Comments Case Report (test code = 104) Surgical Pathology Repor t Case: [id number] Authorizing Provider: Arron Carreno MD Collected: 02/23/2019817 Ordering Location: [address] Med/Surg Received: 02/23/2019 0957 Pathologist: Sana Muhammad MD Specimens: A) - Esophagus, lower polyp biopsy B) - Esophagus, Willis's biopsy DIAGNOSIS (test code = 3220) b1mnbQPxUHQsz2kpNLQhaFMoSsQoAoMnPlGqQpqqnRBmPDqojfGqKApxu2TiL0AxMkEpSXfpavGxEWMb DiffslydPGElUAR0spPeCMNgMDiwTLXuEZtdWq1rdICoqFqdOaNqXHGlk7olaoOQgviqnAj9q0ncEFJa QzK0iOPkEHkwH8zgvjPjzQTxFMYhIHt5oF31FIJdmN 1ivHIeOAqjasTeHgE8RPekRCClIoS5SIUjvQZwNQGuA2nnYPYeGPdjHXGtCCkioQUoVKN7rHsnw4X6nT LvdLBjjEsmGmSeKtRkQMPZk8MlWTy8aByxC7HdOTQqZpQ2rYOkWWGzDBfeDQHbFBXsklT3nT89EEouxj R3dMAtb3Fhb10yz412fD3bgNTbJNG2KLJxZNQrjVLk MZFuHAW9YGIqsXSiY5n2QeXqzWWvG4Y2HrWdvUHtU9Q5FjPtuJIcZ8X9UkKbcNUpHPMluRXyRl4qnHCi xYNblx6knd34VJL4e6UhpYzwOAX8KWE4WsPjXn9heBNlKJUmPM6jJuDatANzSRBvna49cFlmLRerlhAs qM0qXoOyZMWbbXFgNYXkFH4vqSFnROLjkJ2juqlxED LbMwHpdzliBOBrbYmlreDmJh1pxEgvYFN0QSfsU7eviN2gElE2RLwhY6chcF8pZZw3JYtzeTQ4VUJwxA 8dGI9emgnma7gmQjUdIQ2nvitxa6flQwCrKB6qhbz1a0utYnTwEW8viazie1msXaUlCKhjARUqzpdlAL Lrz9MilocpIGXtf9XgJ3MofZbaW31rsQvrP89mTQJf yUymdF7lfObhzM0jRtRwOqWsNZltvQfigUUlvcvoSDdlolHzDFcxjawrUGXqKWgsY6yeJwObRHEpsGeq JUckr2LdQQHwYIXmSxDnZP8yVPCZEUyDO3ZRLTTDB4iOXmQOY6jTQJpvOtgAWUVWHtmsGFQqUQNtPKRS FxBGUCBRUEEwI1OgD16AFD7OPVLwRRVTO7GDCGhJEM puRJsTYR2GFDSYUUWVJ3KYKKSHN55lZG4IDCGQMDvVDYJVARfQF3buD8QEKPMmBFiOEPgCX0cXZVyOUK VxE43BOUFFNTshqFCoRBEljlNIGyRSA81LXVDZFKGkLONMH7UGKEjoaMIvDBNdGT4qV7QEAO9VJ12NPU 3BDCZzFBQWS8CGYWeOAVxcPJ8CSHJCFK2MWRSWSYKY XPbXZ2uDWWKkwlOnQIFwDS6HOMABQ1IRSYNLVQJUJiQMPTrEG62ALwTYPBEUAZ7miPKipJdvzoYkPSzk z0NyMPwfOXPvRN5nrKseODRhQR5fTBOhX4mqbP9bsmt4UlEzMRRhHoU9ZDBailW8Wra7OPEhLTjki0bq e6XpXGXvEWh8uBzpLwFbWWIvv1nkdbZoImJbSQVvEU NyHSEgyJAbA966x8bcy3gvgvKtxQT9NOEmGTN0GErhwfKhkbB2KDunvQWpLaG4BLyvftOpMZxapdFkjl PdVhr6HUUmV567LUX1jCqxb5kxQCO9SCIaOXAbHfQiSa3qsBOfI410TPNkREHCLQGmoFu5ZTAivoRszu XhsZGMc002R053v0ohLNAzycApwHqGsyhdf8aiL227 VULsnTYjmwFvWgPsFSVnyMKwiCY6BDZtBW7ijtatBAufXUmbULWiukF6ANOmbUEuO5EwJNSaNO1emwww OFQ3NAobWIToTKG3GfAmQZDni5Nahdn2IiLpqm7wjb82APS6p2WplFgkWWY4ZUA3JbArAs7xmHYzPYMy VP0wJmOrqUPeVWVefe47yDddLAtzBUQ1WPZazrGcu6 Iar8ddFvVaxyRsS2niI6DkJARaPDYhQAStUjSsxaLyg4Mjv0LdvQHfcVj6f6akXFHmDYRnpKkkd3vjSW O8NGXgfESyI9yhrZ7fSDPcYU3cjvncw5fdPZrkPBctEBLisYR1qiC1JDMmbDZfW0UgnM6qORVuYFtzYH Vtfao4UzJzFw5miKJnuAdvQOfoVhebFChsGMEzobUx bnRccGduZGVjXHBsYWluXHBsYWluXGYwXGZzMjRccWxcbGFuZzEwMzNcaGljaFxmMVxkYmNoXGYxXGxv Y3tuBvMwVeXdImm7NXMbgEOyMOLoRbf1WHTrjGZtBPJOgCrptX8aJFYmpIxneY2loJK6ZRAfedTmpLLQ yL5iOSUZqJ1fIkOhLOKrLcU3BPrqVmGitWUpcL3= COMMENT (test code = 3359) j9xshQMbZROcfCLeLiWtOSLxCOPbk2meKTNbpGRwPrYyXxOvZmTsBkoptNXqQFRnXrNai1dir359dMDw m1rgMOPbSkV8oGGvWQZsgHRkZ749LURkKEseu5mpj4AqSWWlqJWcq0Z3TTHHjhwbcIj7dCczP03ft1M7 XxprT9quONNcLBNqH7HiNG1tHRXuVgr1CZR1ODC5DF QwHEQdP1UjSK9wHKSjkDVcEDe6c6fovObmIEDcGTB3a7eqXDizkpHcWE0ahm5kgSw3d0cktaVwFHAqPM RdiTKTLUQtF8MfwXqbXb8huEz8pTihLcejJMR7Yku5YF2cyq54ubr0rCefLCBvofugXbG1CUvvXJFcov qlMGd1HCwsPSXdtOmfGElaFNZhkbbsPAjyRNYrqVkh EDyqYPYoDzpxTXxbTMYnVED6ZLfng991SIM7IFkfe0uok8jiwMImRqb7RZObEuPbJbymWKypi0Hut3sr HLKlxu0rBED7hOBwdQyes6M6uFFtTUFlmEVpjmIrMSBiKnK0KJktOB6uwh63EOVjLLR9bt8ruXGywGit roZrzWXqCXvhV8SpTSUrx126AXWrK4QwQXNeu7F2pt DeKnTkFGGbdZJ8mnN3UPFuSXw9mBMsecF3tmCasCApQ6lyqB96RmCewDDyT6QxsP00TwOnjMZeF4DcoA 86LkHvyZGfW0QapQ96GkGxkEQyPWYowEFlEl7vzXGsdYKuf0TxhPGiIMhxJ32bt756BPMxwjLvS7nnkG FgkkbopSMqojvhDGjiphW2UXNbVDMmMZiaZMSvWTBc DwYykHJiIbPfDbChmOsusCarLMaoJxFnBMWiIBffN2fhLeTyPmFpHHLYnUTcUksowXU2WLMwkkQms1Jh CU4wKT81bBBamAdvKMGaBNzsZY92nbRnZyA7aWkpx1wbZQ3ejIwrawIazVXia1Tjj8v6pRDhgOHadfJt biGzaDxbAGWxnQzeefpdI6YoHtVdAm0odGxaSrRyCp RfeXXwNKQkLD1uXQtjN0nfJ6PaRLQkhmFyhUAnJmESvYUakO4yrBhxVIVkTRlgVJ11UYFiq74fy2LkmI alGGBcw3GkiIM1fPYjoN9gq9wcvNf4dIR9UP0zBNFyCLSuYFAeoUgihvxuX3QyY2bhu63cNMActz3sqU RsMTWaknZwmmWjkRScpXKqqHEqFC5dFFOiiq4= CPT Code(s) (test code = 3357) s6skjVShYGQqlRDnFkZcRLPgZTAmd3shQKRumAZwImSeHjOvXrPuIrqxmXSfVAGpZoJye8ler571mIMv e3jqXRQmMaY3dKRwYREivIBlL211s4xjm2hnhyEwgLI6PULfPFJ2CFlprmYnlfV5EOljsQImKzV8QZrg dkOxTZjzbjGopuRwBdx9MWOtS738YHX5sObdf0tsLD B8QWTvMPOwMdZfEc2nrRJeM070QBZhKEZZVNHgvRm1XLXgnrCwkcGbdOMOe070H502x5efWHEzseAxnT gPhfyvj6tgV593DLXjxBQqgeZsKfSkTNPkhBVqlXW0SLMpMD8qbltcUzLbMX1vucexXnVqUB9zhgi5Mu EfAL4kpgmbJcKrRHoxHRBmwxfyUVIjp0NtheplJT4k K0Ekv4S9qY2gfZZsORGsgFZgIcUsYFDkoi5vjBXkETpgl8YzKBJ1ooD9tXSaoLTrZXZeDA67Bezmi5Fb GheiZOZ5YEGijqQya7Qbj7dlJuPngeFmX3uyC8EuJSUnLAOwNGXoEnWlluMud2Htz6EkcRUjpIb0i9qk GYDnMVEygUjiq9ovAKT6OSHfY8K3zARci9ymRUjnHL BqpPF6tdhkALooWQRqzoO3zpxdZKxyNLHegDW8qbttGKbwEHCwTnS0znjgGXfdNNIeRCR8RYnsx952SP P3TBbbKtihGZhnMSWqwxBrfhZybJqxHSJaNUVkAVcwTVJlYDvyPWTiHBSgIwPvsLwinGttfZ5zZtIkLn NsVGtzDY8uILJsF2inzIVvXXEyGRMnW8toEfPulV0noQroXCxhrpChQCd6NwY2NBsyXHDbvn9= CLINICAL HISTORY (test code = 3356) p4bzaDJuVEGsfLDvLrUwWSLgNHCuq6qpXMVuuAOzOiYzLlRdVzAdLbkvdVZtBWPoQqWvc5avu372fHPu k4cjEKLwTrB4mPLvVGAxmYUaB237k5xvf9akkbXooQW6EYXjLWG5EBatkvVhxjK6AXpdcSWpVgY4SZyx egJrTWzvkmFkzbKoQnq7NYWiA751KSQ9nDayu7vlTC H7INIrGDYzNcZpSe0lyLQeD672AHPeIWKVYBOmhZm8RKRianMqndSiwYKFf985E103t9vgCSAeglSsvL uRqgekz8imP155PTLccKVjzmFzOjHuFQFplYOefYG9ZFDkTN7wglodTcAnDJ0hhdemUkEzLN0ckbg0Yy XmFV0wkkrkBrDtTYetNOVdehhgYWJwn9EpkobwUJ9a C3Nqw3I4wP0hrZBeGXUhqIKtWnFaDSWprb6olOJeYAzuw4VvFOY1btY8cHCliUSuUPJxFR24Obtbf5Ro OztoNYM7PKCsklDwm5Vfk4cwLmRyjxHaO0rdT1WiGPTlMENqFVOmPmJxhkEof1Mgn7JqzBWiwGs9d8uy UMRsACWhyIegg0pmXHD7CSMrS2H3pHUjc4zwXNtwSU OgaYD5jwrwVGohXFUyjhF7xcnyCBtpPCMqnAZ3zrcqQWjfWFRwEvI9enabYVsxFSQcJHX9OWzvr643FE Q1NKyuNazsJVlqLZJrmfQahsWhrAklAOSaAFIlYKhqYFSwAErnPEDxUTQbTsVadYwdgQmtoQ4nDsMpGo XxRTbbIA0uDSFyV4bbfJYmVPXeAQElL6cfXyNrkF7rcGauRGnhckXuEXEzXNHkuW8dYHsbUGI8 SPECIMEN SOURCE (test code = 3377) c2xniIHrLLFrdEHvXcAfSNCyJJQkn0uqVWDvaORgAyDjMpYzQoTtAukbrTOyEPCbXuRma1nkq862nKBm j2jjCVPaIaE8tTZjPQFefISfO960CXOnETyjd6zhk6OrRNPdhGIlo7U7NKIWthqguGh7nHvgN83hw1V3 BradD5uxKMMyDJymSDBpIJfphXYiKLJ5CMYaZSH7VV rfhrZvydP5YNrvmLAeVsG0FMp0v7owmHnbRUTmADB6z8uoJGkhqiIvEN0fyh8ctOd2w4shjnOlICVnSR KuxGAKQRYoX7ByiNamMz1guBm1gDmjIktfRHA9Eiz8EQ3syg93oye1pJntOAQxaoupAiG2GSluTIKngv pcDRb5PVitRUSwnZxhFTqeARJqjnnnZLmqPNQatElz THmyELXyUeegDOlmVLDjUNR1UOqns483OCP3TThkr0amd8mckDOeVbk1FSTjFnLlUgwfFXbak5Dlk8fn XBUsty7jVEH3rTHkbFeft6K8gALhFMXbqLXcnsCbUCFfXcK7BBizKN5tlo72QVPxOWR0dm7nqUEttNok syRvdZAxMWonD2SxOVYux159HWBtE9HoUOMre2E1kf JbRlHfDWGmrJY2xnE0XVUlBTn7gEGsuyS9cwAdnTLbJ7fylD81FeJsqKEcO9WehF99SfJalQPiA0KxeW 22BaGwfIAmY1EorY35CfEsoMSpHHGffUKuEt2uyJPzyMCct7YmhLRnLMupL75xm655SQNfrtGbR1qvrU FpblxwbGFpblxmMFxmczIwXHFsXHBsYWluXGYwXGZz NoWzgPqacT2qKjYgXdDhGOPVXtIPx2jaxvPtt0o4jYoaMjkyxKB6CKHdyEyuoA8rUrUqWsZqEEUqu69u aEYglILklEcrgM5yRfSmQpVrSLD8VZOzNGZobxGaqRFjvjQcfS8yo3yzSGqotASfizmtJIahzoJkGWDa n7WdITb4v5kknGDwyhdeSZfrijNrGXIluOLydM== GROSS DESCRIPTION (test code = 3366) x0kotSZgIHClgYGoDmRpTRNoAWAvt5cnBDOzcLKlUeTePqJdUsCoTtxxlVSgWZLiSeHen2kuk627oWJw t5nyERBtKjZ3fYGmQMKkpSHvZ044CNIaRPmkd7kbd5HiTPBfeJNvf0F8JJKVozfakUx7vEoqH08ze6I8 MmuvF6gpUXWuKDnwLFWbDUgrsTDtGHQ1FGUnTIR8LW tklsVwrnB0SUyfjXHxXsS7UKs9p5poyOemHEQsKQX7m9bbUWjkfeJnIT2ytu0vdUa5u2nfsdAoNBOzTB VhiDJFMQFnE3PqvZyhAm1weZe5tYgeNvivWTE2Wyy5WV4zpk61isj2wQltIIXwtziiEgJ3ZJmiUSOhaq pwPFx0WMehXIEsfFsuJKdlHRPmbfwpSBccBMZejTvv INltQLEuMzslEEuoHURkCFB2AGpeh196QRE9OPqhz2dea3ackKHhImy2FPSjUdEdWarqUAbkp7Vaq6yy ZPDmto2wHFN7oQFzwQcoc2G4tYZfAPPiiVMongSvUEWqDlL3IHcyTB0bfy01PBWeRRU4dn5vqBRfxWhp kcQxpHSkLXzgQ2ByEAFwi967ROWwE1HtDFVem2B8qd AtYePgVLCaiTB4ltB4DFKkFBi5qCBrnbO9mnMieTWvV2ysfF32GnOdyHSqI3SknC21UcCqgGQwA6JuzC 26ZsEfjODeN6WhvB97TzDjuMTuYVExxTLiIk1rrVJivSZrj2ZluCKjSVqyN13gt129CUAfbkFhG1ixfA FpblxwbGFpblxmMFxmczIwXHFsXHBsYWluXGYwXGZz RbRacYjgbG4sOlJfRsQyDEUOlLPrtV2orkFCQWxeYTXbC3EhifFcODybYZJorTW9eIFkYRNwKGDiNAYl I70qtKFfSKJgLEYgpLvhsP0gWuDbIlVkLUPtp81bwEMdiMKodEjcgR6fJmSnRvRpKQEeVNElTFWep57a aSD9noPgWmFelIv0hLLhMMLbmP6lJKNipqJ3nYUrhG TqZhOqU02xkqIwXUirpQNqakdeBTlasoSmQNKqdorjfmxcpCgmyS6hFoTlTxWfUZTvuW7gp8z1GXUdgl 7zHMIqZYF6rbReUfOuH98nkV1fR3SqVAVvq6OdQCzkIX7hnG4lBcQAdXkbjSccf1LmTHYpQUzaPM90xv MqydCzn2XjxQm7aNVzXJhztE3rKUPbFLisUMHakPOc XUWmCFRbrHJxYVMoeSOlqsMfIGz1WXCvpA5cJqf0PQNrzlMkFJ3mNXKcm5pwnpW3VZKzKKQeVzmriUYv jgweRQcoqfAwNGBdp6ZzJEq7e8imyLPkbzizRIxdmwKbOWNsXH8yJIBbeyYgq7MlDW8uPUVoqbMlIQSy ijupaHMcJXIhb2C1ZTXdgyWxsTWkzTUbGNIaXYupGO UcWLVtQxOwdjOtL9auC8lagMJtnzsmWEsoyzRlFYRtejSvtBclFVZrq95iLT9aUAOyRVIjEXDaeFXmuv GpxjElyREmfLFqoE1sqmQwl66mFDUzxTE7hUWkoRDeGcYlQ30qkeDhKNWyAHLkiLxknS7jMjLnNsSlPX NxzQXlxSY6GYBroZlstB8pWiEdAfCyBJFkpY56jfILLC0mCHKWEv6wlYEaaHYhhY== MICROSCOPIC DESCRIPTION (test code = 3371) h1nqaBKnPSMbiSVnMdShTFXcXTKcg6roMKLlcKEyOzKqDfApQfGqAozklZJyKSNrHtGtq7amg152qAHb t6jvZMYpHvG4oVXnCXSjuEBkR960c2boy9jlesXrcUY0MRDsQRG2KUhfmtGraqV5RSjpwIPlStJ3UDkr jgXwZCfyjvZzaqDeTwz3FCScW496XPT7sHzvy0lrXO X8DVZcHOBiVwPbCx0qyKImC681CGBcJXRCWOOzpRg7ZXKhujRlxxBuqXRIg831L071g5byNKOxgoYppN tSuabxw1aaQ384IWPqwHVmzvWpNeLhGLZdgTXguMD2IYOwDN7yrqysNuGpJV9tnodlLpTxCF4fhfu6Cr CeMU9xrmdvAaChFHbmDMVwdfbbGLAzv6AewkxmMB3h Q5Din2T9nX1jaYKwPCBxmAFdKhQdMVCuwg8owRNbBUfuh5OpMYJ8xiG1yPMlpXWbRIEvBI45Jrlef6Gm QtdsHHH0LCKgxtUyu8Msn6zeGdMonzDhW9tvE0YiAQFnIYJnXQApZzDvceNwp3Xbq2DlfWKabSp5u7hm HTOhIQGzjYtzz0gcDNS5RJZpM8R1iJOfa0jhYAbmZX JyjGA1bdpvJDilIEUgvmK8tdkeTRtgEKTzrMN3xbxwNKcwTBOeKsG9enliJGkvCZJfWLQ2UHzbs684JZ N3PJznAicnWFlwWKUhtmUfycYahVloSGUvLMPjGZfkMARwLOegIPFkYQRfAaOlbUrhaInjuQ4vGaQqWm KkIGnjYK8aTGJjG8pnuRFyVNZlHJZxD2ywNjDzdD 9qxKwaYZdpuyZwQIKgRidkGMVqHy8zlCMiEGsiIXA0 Gross assessment was performed at (test code = 2777) [facility], Department of Pathology, [address] [place] [address], Technical component was performed at (test code = 2778 ) [facility], Department of Pathology, [address] [place] [address], Professional component was performed at (test code = 2 779) [facility], Department of Pathology, [address] [place] [address], [facility] [id number] 10:22:00Surgical Pathology Report Case: [id number] Authorizing Provider: Arron Carreno MD Collected: 02/23/201918 Ordering Location: [address] Med/Surg Received: 02/23/2019 0910 Pathologist: Sana Muhammad MD Specimens: A) - Esophagus, lower polyp biopsy B) - Esophagus, Willis's biopsy A. ESOPHAGUS, LOWER POLYP, BIOPSY: - FRAGMENTS OF COLUMNAR MUCOSA WITH EXTENSIVE ULCERATION AND AT LEAST HIGH-GRADE DYSPLASIA (SEE COMMENT)B. ESOPHAGUS, BIOPSY: - SQUAMOCOLUMNAR MUCOSA WITH INTESTINAL METAPLASIA - NO DYSPLASIA OR MALIGNANCY SEEN Signing Pathologi st Direct Phone Line: [phone] signed by Sana Muhammad MD on 02/24/2019 at 10:22 AMThe biopsy consists of multiple fragments of vi lloglandular mucosa with extensive ulceration, cribriforming of glands and high- grade nuclei. Due to the fragmentation of the biopsy the possiblitity of an unde rlying carcinoma cannot be entirely excluded. [id number] A. Lower polyp, b iopsy, esophagus; B. [...] are submitted into B1. MG/pl A-B: Performed [facility], Department of Pathology, [address] [place] [address], [facility], Department of Pathology, [address] [place] [address], [facility], [facility], [address] [place] [address], ECFF-GLUCOSE [id number] 07:02:00* Test Item Value Reference Range Interpretation Comments POC-GLUCOSE METER (BEAKER) (test code = 1538) 132 mg/dL 70-110 H : Notified RN/MD: TESTED AT [address] [address]: L D Rn/Engineering And Development Director ID = [id number] for Tiki Bernstein [id number] 06:30:00* Test Item Value Reference Range Interpretation Comments MAGNESIUM (BEAKER) (test code = 627) 2.2 mg/dL 1.5-3.0 BASIC METABOLIC [id number] 06:29:00* Test Item Value Reference Range Interpretation [...] GFR IS NOT APPLICABLE FOR DIALYSIS PATIENTS. [id number] 06:27:00* Test Item Value Reference Range Interpretation Comments PHOSPHORUS (BEAKER) (test code = 604) 2.2 mg/dL 2.5-4.5 L CBC W/PLT COUNT & AUTO [id number] 06:13:00* Test Item Value Reference Range Interpretation [...] code = 2801) 0 % 0-0 POCT-GLUCOSE [id number] 21:07:00* Test Item Value Reference Range Interpretation Comments POC-GLUCOSE METER (BEAKER) (test code = 1538) 211 mg/dL 70-110 H : Notified RN/MD: TESTED AT [place] [address]: L D Rn/Engineering And Development Director ID = [id number] for Tiki Bernstein Hepatitis B surface [id number] 18:59:00* Test Item Value Reference Range Interpretation Comments Hep B S Ab (test code = 64328-1) 31.5 <8.0 mIU/mL H Lab Interpretation (test code = 94561-3) [facility] [id number] 18:59:00* Test Item Value Reference Range Interpretation Comments HEPATITIS B SURFACE ANTIBODY (BEAKER) (test code = 647) 31.5 mIU/mL <8.0 H POCT-GLUCOSE [id number] 13:45:00* Test Item Value Reference Range Interpretation Comments POC-GLUCOSE METER (BEAKER) (test code = 1538) 124 mg/dL 70-110 H : TESTED AT [place] [address]: L D Rn/Engineering And Development Director ID = [id number] for Vikki Dimas HEPATITIS B SURFACE [id number] 11:06:00* Test Item Value Reference Range Interpretation Comments HEPATITIS B SURFACE ANTIGEN (2) (BEAKER) (test code = 2585) Nonreactive Nonreactive POCT-GLUCOSE [id number] 06:48:00* Test Item Value Reference Range Interpretation Comments POC-GLUCOSE METER (BEAKER) (test code = 1538) 131 mg/dL 70-110 H : Notified RN/MD: TESTED AT [place] [address]: L D Rn/Engineering And Development Director ID = [id number] for Tiki Bernstein TROPONIN [id number] 06:13:00* Test Item Value Reference Range Interpretation [...] neurological disease, and per sistent tachyarrhythmia.BASIC METABOLIC [id number] 06:09:00* Test Item Value Reference Range Interpretation [...] GFR IS NOT APPLICABLE FOR DIALYSIS PATIENTS. [id number] 06:06:00* Test Item Value Reference Range Interpretation Comments MAGNESIUM (BEAKER) (test code = 627) 2.3 mg/dL 1.5-3.0 [id number] 06:04:00* Test Item Value Reference Range Interpretation Comments PHOSPHORUS (BEAKER) (test code = 604) 2.1 mg/dL 2.5-4.5 L CBC W/PLT COUNT & AUTO [id number] 05:52:00* Test Item Value Reference Range Interpretation [...] code = 2801) 0 % 0-0 POCT-GLUCOSE [id number] 20:56:00* Test Item Value Reference Range Interpretation Comments POC-GLUCOSE METER (BEAKER) (test code = 1538) 211 mg/dL 70-110 H : Notified RN/MD: TESTED AT [address] [address]: L D Rn/Engineering And Development Director ID = [id number] for Amandeep Tiki POCT-GLUCOSE [id number] 16:32:00* Test Item Value Reference Range Interpretation Comments POC-GLUCOSE METER (BEAKER) (test code = 1538) 158 mg/dL 70-110 H : TESTED AT [place] [address]: L D Rn/Engineering And Development Director ID = [id number] for Jose, Ayinor POCT-GLUCOSE [id number] 11:55:00* Test Item Value Reference Range Interpretation Comments POC-GLUCOSE METER (BEAKER) (test code = 1538) 173 mg/dL 70-110 H : TESTED AT [place] [address]: L D Rn/Engineering And Development Director ID = [id number] for Jose, Ayinor POCT-GLUCOSE [id number] 06:08:00* Test Item Value Reference Range Interpretation Comments POC-GLUCOSE METER (BEAKER) (test code = 1538) 153 mg/dL 70-110 H : Notified RN/MD: TESTED AT [place] [address]: L D Rn/Engineering And Development Director ID = [id number] for Josee Huyhn BASIC METABOLIC [id number] 05:33:00* Test Item Value Reference Range Interpretation [...] APPLICABLE FOR DIALYSIS PATIENTS. 2 hours after [id number] 05:24:00* Test Item Value Reference Range Interpretation Comments MAGNESIUM (BEAKER) (test code = 627) 2.3 mg/dL 1.5-3.0 2 hours after [id number] 05:21:00* Test Item Value Reference Range Interpretation Comments PHOSPHORUS (BEAKER) (test code = 604) 2.2 mg/dL 2.5-4.5 L 2 hours after HDCBC W/PLT COUNT & AUTO [id number] 05:08:00* Test Item Value Reference Range Interpretation [...] code = 2801) 0 % 0-0 TROPONIN [id number] 00:44:00* Test Item Value Reference Range Interpretation [...] acute neurological disease, and per sistent tachyarrhythmia.POCT-GLUCOSE [id number] 21:56:00* Test Item Value Reference Range Interpretation Comments POC-GLUCOSE METER (BEAKER) (test code = 1538) 180 mg/dL 70-110 H : Notified RN/MD: TESTED AT [place] [address]: L D Rn/Engineering And Development Director ID = [id number] for Lino, Josee POCT-GLUCOSE [id number] 18:41:00* Test Item Value Reference Range Interpretation Comments POC-GLUCOSE METER (BEAKER) (test code = 1538) 147 mg/dL 70-110 H : TESTED AT [place] [address]: L D Rn/Engineering And Development Director ID = [id number] for Jose, Ayinor POCT-GLUCOSE [id number] 17:09:00* Test Item Value Reference Range Interpretation Comments POC-GLUCOSE METER (BEAKER) (test code = 1538) 156 mg/dL 70-110 H : TESTED AT [place] [address]: L D Rn/Engineering And Development Director ID = [id number] for Ambrose, Julia POCT-GLUCOSE [id number] 15:37:00* Test Item Value Reference Range Interpretation Comments POC-GLUCOSE METER (BEAKER) (test code = 1538) 128 mg/dL 70-110 H : TESTED AT [place] [address]: L D Rn/Engineering And Development Director ID = [id number] for Ambrose, Julia POCT-GLUCOSE [id number] 14:29:00* Test Item Value Reference Range Interpretation Comments POC-GLUCOSE METER (BEAKER) (test code = 1538) 131 mg/dL 70-110 H : TESTED AT [place] [address]: L D Rn/Engineering And Development Director ID = [id number] for Ambrose, Julia POCT-GLUCOSE [id number] 13:18:00* Test Item Value Reference Range Interpretation Comments POC-GLUCOSE METER (BEAKER) (test code = 1538) 128 mg/dL 70-110 H : TESTED AT [place] [address]: L D Rn/Engineering And Development Director ID = [id number] for Ambrose, Julia POCT-GLUCOSE [id number] 12:11:00* Test Item Value Reference Range Interpretation Comments POC-GLUCOSE METER (BEAKER) (test code = 1538) 127 mg/dL 70-110 H : TESTED AT [place] [address]: L D Rn/Engineering And Development Director ID = [id number] for Ambrose, Julia POCT-GLUCOSE [id number] 11:15:00* Test Item Value Reference Range Interpretation Comments POC-GLUCOSE METER (BEAKER) (test code = 1538) 89 mg/dL 70-110 : TESTED AT [place] [address]: L D Rn/Engineering And Development Director ID = [id number] for Ambrose, Julia POCT-GLUCOSE [id number] 09:45:00* Test Item Value Reference Range Interpretation Comments POC-GLUCOSE METER (BEAKER) (test code = 1538) 67 mg/dL 70-110 L : TESTED AT [place] [address]: L D Rn/Engineering And Development Director ID = [id number] for Ambrose, Julia POCT-GLUCOSE [id number] 07:29:00* Test Item Value Reference Range Interpretation Comments POC-GLUCOSE METER (BEAKER) (test code = 1538) 80 mg/dL 70-110 : TESTED AT [address] [address]: L D Rn/Engineering And Development Director ID = [id number] for Julia Ambrose POCT-GLUCOSE [id number] 06:34:00* Test Item Value Reference Range Interpretation Comments POC-GLUCOSE METER (BEAKER) (test code = 1538) 123 mg/dL 70-110 H : Notified RN/MD: TESTED AT [facility] [address] [place] [address]: L D Rn/Engineering And Development Director ID = [id number] for Anabel He TROPONIN [id number] 06:13:00* Test Item Value Reference Range Interpretation [...] neurological disease, and per sistent tachyarrhythmia.BASIC METABOLIC [id number] 06:11:00* Test Item Value Reference Range Interpretation [...] IS NOT APPLICABLE FOR DIALYSIS PATIENTS. POCT-GLUCOSE [id number] 04:59:00* Test Item Value Reference Range Interpretation Comments POC-GLUCOSE METER (BEAKER) (test code = 1538) 209 mg/dL 70-110 H : TESTED AT [place] [address]: L D Rn/Engineering And Development Director ID = [id number] for Chet Caamrena POCT-GLUCOSE [id number] 04:54:00* Test Item Value Reference Range Interpretation Comments POC-GLUCOSE METER (BEAKER) (test code = 1538) 262 mg/dL 70-110 H : TESTED AT [place] [address]: L D Rn/Engineering And Development Director ID = [id number] for Rajeev, Bill RAD, CHEST, 1 VIEW, NON [id number] 04:22:00Reason for exam:->Chest PainFINAL REPORT INDICATION: Chest [...] JONES MD on 1 04/23/2018 04:22 AM [id number] 03:45:00* Test Item Value Reference Range Interpretation Comments PTT (test code = 21218-8) 29.2 23.0- 35.0 sec VLADIMIR (test code = VLADIMIR) Final Information (Auto Output) Lab Interpretation (test code = 43921-6) [id number] 03:45:00* Test Item Value Reference Range Interpretation [...] valves.Final Information (Auto Output)Final Informat ion (Auto Output)[id number] 03:45:00* Test Item Value Reference Range Interpretation Comments PARTIAL THROMBOPLASTIN TIME (BEAKER) (test code = 760) 29.2 sec 23.0-35.0 Final Information (Auto Output)TROPONIN [id number] 03:39:00* Test Item Value Reference Range Interpretation [...] Range Interpretation Comments BNP (test code = 83442-5) 1043 pg/mL 0-100 H Lab Interpretation (test code = 47293-5) Abnormal [facility] METABOLIC [id number] 03:35:00* Test Item Value Reference Range Interpretation [...] code = 700) 1043 pg/mL 0-100 H [id number] 03:33:00* Test Item Value Reference Range Interpretation Comments MAGNESIUM (BEAKER) (test code = 627) 2.2 mg/dL 1.5-3.0 Procedural [id number] 03:25:03Ludwig Prince MD 02/20/2019 8:30 AM Procedural [...] Ke tamine Intra-procedure monitoring: Blood pressure monitoring, cafeteria monitor, continuous pulse oximetry, frequent LOC assessments and frequent vital sign charity cks Intra-procedure events: none Post Sedation Evaluation: Respiration: airway patent and returned to pre-procedure baselinsMental Status: returned to pre-pro cedure baseline.Cardiovascular Function: returned to pre-procedure baseline and post-procedural cafeteria monitor reviewed The following have been reviewed and fo und to be within acceptable parameters: RR, HR, pulse ox, BP and temp Pain Scale : 0/10 Nausea/Vomiting: noHydration status: wnlTemperature within expected para meters :Temperature within defined limits @[facility]ENTEREDMULTIPLEVITALS@ [facility]trans[facility] [id number] 03:25:03Ludwig Prince MD 02/20/2019 8:30 AMTranscutaneous pacingPerformed [...] of anesthesia: NoneGrafts or Implants: None [facility] [id number] 03:23:00* Test Item Value Reference Range Interpretation Comments POC-GLUCOSE METER (CATRINA) (test code = 1538) 220 mg/dL 70-110 H : TESTED AT [facility] [address] [facility] [address]: L D Rn/Engineering And Development Director ID = [id number] for Bill Boo CBC W/PLT COUNT & AUTO [id number] 03:12:00* Test Item Value Reference Range Interpretation [...] code = 2801) 0 % 0-0 POCT-GLUCOSE [id number] 08:44:00* Test Item Value Reference Range Interpretation Comments POC-GLUCOSE METER (BEAKER) (test code = 1538) 110 mg/dL 70-110 : TESTED AT [address], [address]: L D Rn/Engineering And Development Director ID = [id number] for NICOLE ARRIAGA HEMOGLOBIN AND [id number] 05:58:00* Test Item Value Reference Range Interpretation Comments HEMOGLOBIN (BEAKER) (test code = 410) 8.2 GM/DL 13.7-17.5 L HEMATOCRIT (BEAKER) (test code = 411) 25.2 % 40.1-51.0 L POCT-GLUCOSE [id number] 00:23:00* Test Item Value Reference Range Interpretation Comments POC-GLUCOSE METER (BEAKER) (test code = 1538) 168 mg/dL 70-110 H : TESTED AT [address], [address]: L D Rn/Engineering And Development Director ID = [id number] for OSKAR, ESAU POCT-GLUCOSE [id number] 20:14:00* Test Item Value Reference Range Interpretation Comments POC-GLUCOSE METER (BEAKER) (test code = 1538) 180 mg/dL 70-110 H : TESTED AT [address], [address]: L D Rn/Engineering And Development Director ID = [id number] for OSKAR, ESAU POCT-GLUCOSE [id number] 16:45:00* Test Item Value Reference Range Interpretation Comments POC-GLUCOSE METER (BEAKER) (test code = 1538) 264 mg/dL 70-110 H : TESTED AT [address], [address]: L D Rn/Engineering And Development Director ID = [id number] for CRISTOFERJOANA POCT-GLUCOSE [id number] 14:03:00* Test Item Value Reference Range Interpretation Comments POC-GLUCOSE METER (BEAKER) (test code = 1538) 196 mg/dL 70-110 H : TESTED AT [facility] [address] [facility], [address]: L D Rn/Engineering And Development Director ID = [id number] for GIOVANI RIOS HEMODIALYSIS [id number] 12:14:00Daisy Arango RN 02/08/2019 12:17 PMLab Results [...] stable and did not have any complaints. [place] 14mins before end of treatment that patient is for blood transfusion but floor nurse who acknowledged the order did not notify dialysis nurse, to be given in the floor. Patient stable. [facility]orsed accordingly. [facility] [id number] 10:00:00* Test Item Value Reference Range Interpretation Comments CULTURE (BEAKER) (test code = 1095) No growth in 5 days POCT-GLUCOSE [id number] 08:20:00* Test Item Value Reference Range Interpretation Comments POC-GLUCOSE METER (BEAKER) (test code = 1538) 92 mg/dL 70-110 : TESTED AT [facility] [address] [facility], [address]: L D Rn/Engineering And Development Director ID = [id number] for Daisy Arango BASIC METABOLIC [id number] 05:37:00* Test Item Value Reference Range Interpretation [...] GFR IS NOT APPLICABLE FOR DIALYSIS PATIENTS. [id number] 05:33:00* Test Item Value Reference Range Interpretation Comments PHOSPHORUS (BEAKER) (test code = 604) 2.9 mg/dL 2.3-4.7 [id number] 05:33:00* Test Item Value Reference Range Interpretation Comments MAGNESIUM (BEAKER) (test code = 627) 2.2 mg/dL 1.6-2.6 CBC W/PLT COUNT & AUTO [id number] 05:25:00* Test Item Value Reference Range Interpretation [...] code = 2801) 0 % 0-1 POCT-GLUCOSE [id number] 00:19:00* Test Item Value Reference Range Interpretation Comments POC-GLUCOSE METER (BEAKER) (test code = 1538) 160 mg/dL 70-110 H : TESTED AT [address], [address]: L D Rn/Engineering And Development Director ID = [id number] for ESAU SCHMITT POCT-GLUCOSE [id number] 21:42:00* Test Item Value Reference Range Interpretation Comments POC-GLUCOSE METER (BEAKER) (test code = 1538) 234 mg/dL 70-110 H : TESTED AT [address], [address]: L D Rn/Engineering And Development Director ID = [id number] for Dev Sana POCT-GLUCOSE [id number] 20:11:00* Test Item Value Reference Range Interpretation Comments POC-GLUCOSE METER (BEAKER) (test code = 1538) 219 mg/dL 70-110 H : TESTED AT [address], [address]: L D Rn/Engineering And Development Director ID = [id number] for Sana Méndez POCT-GLUCOSE [id number] 13:12:00* Test Item Value Reference Range Interpretation Comments POC-GLUCOSE METER (BEAKER) (test code = 1538) 174 mg/dL 70-110 H : Notified RN/MD: TESTED AT [facility] [address] [facility], [address]: L D Rn/Engineering And Development Director ID = [id number] for CAIT BERRY POCT-GLUCOSE [id number] 08:28:00* Test Item Value Reference Range Interpretation Comments POC-GLUCOSE METER (BEAKER) (test code = 1538) 150 mg/dL 70-110 H : TESTED AT [place] [id number] [facility], [address]: L D Rn/Engineering And Development Director ID = [id number] for Ryder Myers BASIC METABOLIC [id number] 07:21:00* Test Item Value Reference Range Interpretation [...] GFR IS NOT APPLICABLE FOR DIALYSIS PATIENTS. [id number] 07:13:00* Test Item Value Reference Range Interpretation Comments PHOSPHORUS (BEAKER) (test code = 604) 2.1 mg/dL 2.3-4.7 L [id number] 07:13:00* Test Item Value Reference Range Interpretation Comments MAGNESIUM (BEAKER) (test code = 627) 2.1 mg/dL 1.6-2.6 CBC W/PLT COUNT & AUTO [id number] 07:01:00* Test Item Value Reference Range Interpretation [...] code = 2801) 1 % 0-1 POCT-GLUCOSE [id number] 22:31:00* Test Item Value Reference Range Interpretation Comments POC-GLUCOSE METER (BEAKER) (test code = 1538) 233 mg/dL 70-110 H : TESTED AT [place] [id number] [facility], [address]: L D Rn/Engineering And Development Director ID = [id number] for Max Galan POCT-GLUCOSE [id number] 20:29:00* Test Item Value Reference Range Interpretation Comments POC-GLUCOSE METER (BEAKER) (test code = 1538) 195 mg/dL 70-110 H : TESTED AT [address], [address]: L D Rn/Engineering And Development Director ID = [id number] for JOEL TAYLOR HEMODIALYSIS [id number] 18:10:00Richie Damico RN 02/06/2019 6:35 PMHD x [...] 97.6 F (36.4 C) SpO2: 98% [facility] [id number] 17:18:00* Test Item Value Reference Range Interpretation Comments POC-GLUCOSE METER (BEAKER) (test code = 1538) 160 mg/dL 70-110 H : TESTED AT [facility] [address] [facility], [address]: L D Rn/Engineering And Development Director ID = [id number] for JOSE PADRON POCT-GLUCOSE [id number] 14:53:00* Test Item Value Reference Range Interpretation Comments POC-GLUCOSE METER (BEAKER) (test code = 1538) 203 mg/dL 70-110 H : TESTED AT [facility] [address] [facility], [address]: L D Rn/Engineering And Development Director ID = [id number] for JOSE PADRON POCT-GLUCOSE [id number] 08:38:00* Test Item Value Reference Range Interpretation Comments POC-GLUCOSE METER (BEAKER) (test code = 1538) 195 mg/dL 70-110 H : TESTED AT [place] [id number] [facility], [address]: L D Rn/Engineering And Development Director ID = [id number] for EARNEST MARTINEZ BASIC METABOLIC [id number] 05:56:00* Test Item Value Reference Range Interpretation [...] GFR IS NOT APPLICABLE FOR DIALYSIS PATIENTS. [id number] 05:46:00* Test Item Value Reference Range Interpretation Comments PHOSPHORUS (BEAKER) (test code = 604) 2.3 mg/dL 2.3-4.7 [id number] 05:46:00* Test Item Value Reference Range Interpretation Comments MAGNESIUM (BEAKER) (test code = 627) 2.2 mg/dL 1.6-2.6 CBC W/PLT COUNT & AUTO [id number] 05:19:00* Test Item Value Reference Range Interpretation [...] code = 2801) 0 % 0-1 POCT-GLUCOSE [id number] 21:09:00* Test Item Value Reference Range Interpretation Comments POC-GLUCOSE METER (BEAKER) (test code = 1538) 173 mg/dL 70-110 H : TESTED AT [address], [address]: L D Rn/Engineering And Development Director ID = [id number] for JULIANNA GUTHRIE POCT-GLUCOSE [id number] 16:01:00* Test Item Value Reference Range Interpretation Comments POC-GLUCOSE METER (BEAKER) (test code = 1538) 252 mg/dL 70-110 H : Notified RN/MD: TESTED AT [address], [address]: L D Rn/Engineering And Development Director ID = [id number] for GIOVANI RIOS POCT-GLUCOSE [id number] 10:58:00* Test Item Value Reference Range Interpretation Comments POC-GLUCOSE METER (BEAKER) (test code = 1538) 159 mg/dL 70-110 H : TESTED AT [address], [address]: L D Rn/Engineering And Development Director ID = [id number] for GIOVANI RIOS BASIC METABOLIC [id number] 06:11:00* Test Item Value Reference Range Interpretation [...] GFR IS NOT APPLICABLE FOR DIALYSIS PATIENTS. [id number] 05:41:00* Test Item Value Reference Range Interpretation Comments PHOSPHORUS (BEAKER) (test code = 604) 2.5 mg/dL 2.3-4.7 [id number] 05:41:00* Test Item Value Reference Range Interpretation Comments MAGNESIUM (BEAKER) (test code = 627) 2.2 mg/dL 1.6-2.6 CBC W/PLT COUNT & AUTO [id number] 05:15:00* Test Item Value Reference Range Interpretation [...] code = 2801) 0 % 0-1 POCT-GLUCOSE [id number] 19:47:00* Test Item Value Reference Range Interpretation Comments POC-GLUCOSE METER (BEAKER) (test code = 1538) 211 mg/dL 70-110 H : TESTED AT [address], [address]: L D Rn/Engineering And Development Director ID = [id number] for Simona Hurtado POCT-GLUCOSE [id number] 16:23:00* Test Item Value Reference Range Interpretation Comments POC-GLUCOSE METER (BEAKER) (test code = 1538) 187 mg/dL 70-110 H : Notified RN/MD: TESTED AT [address], [address]: L D Rn/Engineering And Development Director ID = [id number] for GIOVANI RIOS POCT-GLUCOSE [id number] 10:06:00* Test Item Value Reference Range Interpretation Comments POC-GLUCOSE METER (BEAKER) (test code = 1538) 157 mg/dL 70-110 H : TESTED AT [address], [address]: L D Rn/Engineering And Development Director ID = [id number] for GIOVANI RIOS BASIC METABOLIC [id number] 08:46:00* Test Item Value Reference Range Interpretation [...] GFR IS NOT APPLICABLE FOR DIALYSIS PATIENTS. [id number] 08:32:00* Test Item Value Reference Range Interpretation Comments PHOSPHORUS (BEAKER) (test code = 604) 2.5 mg/dL 2.3-4.7 [id number] 08:32:00* Test Item Value Reference Range Interpretation Comments MAGNESIUM (BEAKER) (test code = 627) 2.1 mg/dL 1.6-2.6 CBC W/PLT COUNT & AUTO [id number] 06:54:00* Test Item Value Reference Range Interpretation [...] Value Reference Range Interpretation Comments ANTIBODY ID (CATRINA) (test code = 2253) Anti-EUNID IgG Antibody Consult (test code = 2479) SIGNED OUT Anti E causes RBC injury, transfuse E negative RBCs.An IgG antibody of undetermined specificity is detected, transfuse crossmatch compatible RBCs.Electronic Signature: Karla Hirsch M.D. [facility] [id number] 15:31:00* Test Item Value Reference Range Interpretation Comments POC-GLUCOSE METER (CATRINA) (test code = 1538) 150 mg/dL 70-110 H : Notified RN/MD: TESTED AT [address], [address]: L D Rn/Engineering And Development Director ID = [id number] for GIOVANI RIOS Lactic acid, [id number] 09:27:00* Test Item Value Reference Range Interpretation Comments Lactate, Venous (test code = 2872) 0.2 mmol/L 0.5-2.2 L Lab Interpretation (test code = 14660-9) [facility]normal [facility] [id number] 09:27:00* Test Item Value Reference Range Interpretation Comments LACTATE BLOOD VENOUS (2) (BEAKER) (test code = 2872) 0.2 mmol/L 0 .5-2.2 L POCT-GLUCOSE [id number] 08:47:00* Test Item Value Reference Range Interpretation Comments POC-GLUCOSE METER (BEAKER) (test code = 1538) 210 mg/dL 70-110 H : TESTED AT [facility] [address] [facility], [address]: L D Rn/Engineering And Development Director ID = [id number] for JOANA SILVA POCT-GLUCOSE [id number] 07:24:00* Test Item Value Reference Range Interpretation Comments POC-GLUCOSE METER (BEAKER) (test code = 1538) 198 mg/dL 70-110 H : TESTED AT [facility] [address] [facility], [address]: L D Rn/Engineering And Development Director ID = [id number] for DOMI HILL BASIC METABOLIC [id number] 06:13:00* Test Item Value Reference Range Interpretation [...] GFR IS NOT APPLICABLE FOR DIALYSIS PATIENTS. [id number] 06:09:00* Test Item Value Reference Range Interpretation Comments MAGNESIUM (BEAKER) (test code = 627) 2.2 mg/dL 1.6-2.6 [id number] 06:08:00* Test Item Value Reference Range Interpretation Comments PHOSPHORUS (BEAKER) (test code = 604) 2.6 mg/dL 2.3-4.7 CBC W/PLT COUNT & AUTO [id number] 05:55:00* Test Item Value Reference Range Interpretation [...] = 2801) 0 % 0-1 Hepatitis C [id number] 02:46:00* Test Item Value Reference Range Interpretation Comments Hepatitis C Ab (test code = 44674-6) Nonreactive Nonreactive Lab Interpretation (test code = 67927-5) Normal [facility] [id number] 02:46:00* Test Item Value Reference Range Interpretation Comments Hep B Core Total Ab (test code = 62642-3) Nonreactive Nonreactive Hep B S Ab (test code = 37911-2) 16.1 <8.0 mIU/mL H HBsAg Screen (test code = 5195-3) Nonreactive Nonreactive Lab Interpretation (test code = 71010-5) [facility]normal [facility] Antigen with HIV-1/2 [id number] 02:46:00* Test Item Value Reference Range Interpretation Comments HIV-1 Antigen with HIV 1&2 Antibody (test code = 17708-0) No nreactive Nonreactive Lab Interpretation (test code = 85529-7) [facility] [id number] 02:46:00* Test Item Value Reference Range Interpretation Comments HEPATITIS C ANTIBODY (BEAKER) (test code = 367) Nonreactive Nonrea ctive HEPATITIS B [id number] 02:46:00* Test Item Value Reference Range Interpretation Comments HEPATITIS B CORE TOTAL ANTIBODY (BEAKER) (test code = 497) N onreactive Nonreactive HEPATITIS B SURFACE ANTIBODY (BEAKER) (test code = 647) 16.1 mIU/mL <8.0 H HEPATITIS B SURFACE ANTIGEN (2) (BEAKER) (test code = 2585) Nonreactive Nonreactive HIV-1 ANTIGEN WITH HIV-1/2 [id number] 02:46:00* Test Item Value Reference Range Interpretation Comments HIV-1 ANTIGEN WITH HIV 1\\T\\2 ANTIBODY (2) (BEAKER) (te st code = 2586) Nonreactive Nonreactive Direct [facility] (KAYLENE)/Direct [id number] 00:22:00* Test Item Value Reference Range Interpretation Comments [facility]-IGG (test code = 1006-6) POSITIVE Microscopic positive by Jojo Fonseca [facility]-C3B, C3D (test code = 1003-3) NEGATVIE by Jojo Fonseca [facility] [id number] 21:26:00* Test Item Value Reference Range Interpretation Comments POC-GLUCOSE METER (CATRINA) (test code = 1538) 164 mg/dL 70-110 H : TESTED AT [address], [address]: L D Rn/Engineering And Development Director ID = [id number] for CASSIE HALE RAD, CHEST, 1 VIEW, NON [id number] 20:45:00Reason for exam:->ABNORMAL LABReason for exam:->SHORTNESS OF [...] = 700) 1530 pg/mL 0-100 H TROPONIN [id number] 20:25:00* Test Item Value Reference Range Interpretation [...] neurological disease, and per sistent tachyarrhythmia.BASIC METABOLIC [id number] 20:23:00* Test Item Value Reference Range Interpretation [...] GFR IS NOT APPLICABLE FOR DIALYSIS PATIENTS. [id number] 20:18:00* Test Item Value Reference Range Interpretation Comments MAGNESIUM (BEAKER) (test code = 627) 2.2 mg/dL 1.6-2.6 Specimen slightly hemolyzed PT/[id number] 20:14:00* Test Item Value Reference Range Interpretation [...] mechanical heart valves.CBC W/PLT COUNT & AUTO [id number] 20:10:00* Test Item Value Reference Range Interpretation [...] code = 2801) 0 % 0-1 TISSUE [id number] 10:03:00Surgical Pathology Report Case: [id number] Authorizing Provider: Kj Ramirez DPM Collected: 01/24/201935 Ordering Location: [address] Received: 01/24/2019 0938 Service Pathologist: Fede Patrick MD Specimen: Heel, Left, soft tissue, left heel PART A SOFT TISSUE LEFT HEEL, DEBRIDEMENT:CONNECTIVE TISSUE WITH GANGRENOUS NECROSIS. Signing Pathologist Direct Phone Line: [phone] signed by Fede Patrick MD on 02/01/2019 at 10:03 [id number] wound of left heelLeft heel, soft tissue left heelSpecimen A is a baltazar-pink to mar-white tissue measuring 1 cm in greatest dimension. The specimen is submitted in toto in cassette A1. KM/bc PERFORMED.[facility], Department of Pathology, [address] [place] [address], [facility], Department of Pathology, [address] [place] [address], [facility], Department of Pathology, [address] [place], [place] [id number], Sozawtkdu [id number] 18:14:00* Test Item Value Reference Range Interpretation Comments Result (test code = 6463-4) 4+ Same organism has been isolated from culture(s) of the same body site and collection date. Repeat identification performed only after consultation with the clinical microbiology laboratory. A Refer to previous culture of* - Finegoldia magna Lab Interpretation (test code = 62342-6) Abnormal [facility] [id number] 18:14:00* Test Item Value Reference Range Interpretation Comments CULTURE (BEAKER) (test code = 1095) A 4+ Same organism has been isolated from culture(s) of the same body site and collection date. Repeat identification performed only after consultation with the clinical microbiology laboratory.Refer to previous culture of* - Finegoldia magna POCT-GLUCOSE [id number] 21:32:00* Test Item Value Reference Range Interpretation Comments POC-GLUCOSE METER (BEAKER) (test code = 1538) 151 mg/dL 70-110 H : TESTED AT [address], [address]: L D Rn/Engineering And Development Director ID = [id number] for VITO JOSE HEMODIALYSIS [id number] 20:35:21Lionel Leyva RN 01/25/2019 8:35 PMstarted HD [...] Component Value Date HEPBSAG Nonreactive 01/18/2019 [facility] 2019-01-25 18:19:00* Test Item Value Reference Range Interpretation Comments POC-GLUCOSE METER (BEAKER) (test code = 1538) 105 mg/dL 70-110 : TESTED AT [address], [address]: L D Rn/Engineering And Development Director ID = [id number] for Sarmad Arias POCT-GLUCOSE [id number] 15:13:00* Test Item Value Reference Range Interpretation Comments POC-GLUCOSE METER (BEAKER) (test code = 1538) 140 mg/dL 70-110 H : TESTED AT [address], [address]: L D Rn/Engineering And Development Director ID = [id number] for ELSA MENDOZA POCT-GLUCOSE [id number] 15:05:00* Test Item Value Reference Range Interpretation Comments POC-GLUCOSE METER (BEAKER) (test code = 1538) 128 mg/dL 70-110 H : TESTED AT [address], [address]: L D Rn/Engineering And Development Director ID = [id number] for Ruby Willardalem POCT-GLUCOSE [id number] 14:39:00* Test Item Value Reference Range Interpretation Comments POC-GLUCOSE METER (BEAKER) (test code = 1538) 108 mg/dL 70-110 : TESTED AT [address], [address]: L D Rn/Engineering And Development Director ID = [id number] for CAAL, NOVA POCT-GLUCOSE [id number] 14:35:00* Test Item Value Reference Range Interpretation Comments POC-GLUCOSE METER (BEAKER) (test code = 1538) 114 mg/dL 70-110 H : TESTED AT [address], [address]: L D Rn/Engineering And Development Director ID = [id number] for CAAL, NOVA BASIC METABOLIC [id number] 05:22:00* Test Item Value Reference Range Interpretation [...] DIALYSIS PATIENTS. CBC W/PLT COUNT & AUTO [id number] 05:19:00* Test Item Value Reference Range Interpretation [...] % 0-1 RAD, FOOT, MIN 3 VIEWS, [id number] 12:56:00Reason for exam:->post op films FINAL REPORT TECHNIQUE: Three views of the left foot HIST ORY: post op films. COMPARISON: 01/18/2019. IMPRESSION:Postoperative changes at the heel.Otherwise, stable compared to the prior study. Signed: Jaimie Moreau MD Report Verified Date/Time: 01/24/2019 12:56:40 Reading Location: [facility] Radiolog y Reading Room Electronically signed by: JAIMIE MOREAU DO on 2018 12:56 PM POCT-GLUCOSE [id number] 12:28:00* Test Item Value Reference Range Interpretation Comments POC-GLUCOSE METER (BEAKER) (test code = 1538) 123 mg/dL 70-110 H : TESTED AT [place] [id number] [facility], [address]: L D Rn/Engineering And Development Director ID = [id number] for CAAL, NOVA POCT-GLUCOSE [id number] 10:07:00* Test Item Value Reference Range Interpretation Comments POC-GLUCOSE METER (BEAKER) (test code = 1538) 104 mg/dL 70-110 : TESTED AT [facility] [address] [facility], [address]: L D Rn/Engineering And Development Director ID = [id number] for CAAL, NOVA POCT-GLUCOSE [id number] 10:04:00* Test Item Value Reference Range Interpretation Comments POC-GLUCOSE METER (BEAKER) (test code = 1538) 107 mg/dL 70-110 : TESTED AT [place] [address] [facility], [address]: L D Rn/Engineering And Development Director ID = [id number] for TARA DOWNS BASIC METABOLIC [id number] 04:50:00* Test Item Value Reference Range Interpretation [...] DIALYSIS PATIENTS. CBC W/PLT COUNT & AUTO [id number] 04:01:00* Test Item Value Reference Range Interpretation [...] code = 2801) 1 % 0-1 POCT-GLUCOSE [id number] 21:28:00* Test Item Value Reference Range Interpretation Comments POC-GLUCOSE METER (BEAKER) (test code = 1538) 135 mg/dL 70-110 H : TESTED AT [facility] [address] [facility], [address]: L D Rn/Engineering And Development Director ID = [id number] for ALANIS LOVELL TISSUE [id number] 16:18:00Surgical Pathology Report Case: [id number] Authorizing Provider: Kj Ramirez DPM Collected: 01/18/2019 0915 Ordering Location: [facility] PERIOPER[facility]IVE Received: 01/18/2019 1233 SERVICES Pathologist: Fede Patrick MD Specimen: Soft Tissue, Other, soft tissue left Heel PART A LEFT HEEL SOFT TISSUE, DEBRIDEMENT:GANGRENOUS NECROSIS OF SKIN AND SOFT TISSUE. Signing Pathologist Direct Phone Line: [phone] signed by Fede Patrick MD on 01/23/2019 at 4:18 [id number] foot infection A. Soft tissue left heelReceived in formalin labeled with the patient's name Addi Crawford, and accession number [id number] part A and "soft tissue left heel" [...] skin and underlying soft tissue nearest ulcer; I0-W4-wmgshzmylvaizl sections of ulcer and adjacent skin; A5-airline security representative section of detached small tissue fragment. SB/ewPERFORMED. [facility], Department of Pathology, [address] [place] [address], [facility], Department of Pathology, [address] [place] [address], [facility], Department of Pathology, [address] [place] [address], DRFOXMPLD [id number] 14:47:00* Test Item Value Reference Range Interpretation Comments CULTURE (MOG) (test code = 1095) A 2+ Bacteroides ovatusThis is an appended report. These organism results have been appended to a previously final verified report. Anaerobic organisms of more than 3 types. No further work up performed.POCT- GLUCOSE [id number] 12:39:00* Test Item Value Reference Range Interpretation Comments POC-GLUCOSE METER (KiggitAKER) (test code = 1538) 134 mg/dL 70-110 H : TESTED AT [address], [address]: L D Rn/Engineering And Development Director ID = [id number] for NOVA CAAL SURGICALLY OBTAINED CULTURE + GRAM [id number] 09:06:00* Test Item Value Reference Range Interpretation Comments CULTURE (MOG) (test code = 1095) PSEUDOMONAS AERUGINOSA A [...] GRAM STAIN RESULT (BEAKER) (test code = 609090) 1+ gra m positive cocci in chains and pairs GRAM STAIN RESULT (BEAKER) (test code = 111125) 1+ gra m positive cocci in chains and pairs GRAM STAIN RESULT (BEAKER) (test code = 891578) <1+ gr am positive cocci in clusters GRAM STAIN RESULT (BEAKER) (test code = 694889) <1+ gram negative r ods POCT-GLUCOSE [id number] 08:27:00* Test Item Value Reference Range Interpretation Comments POC-GLUCOSE METER (BEAKER) (test code = 1538) 111 mg/dL 70-110 H : TESTED AT [facility] [address] [facility], [address]: L D Rn/Engineering And Development Director ID = [id number] for NOVA CAAL CBC W/PLT COUNT & AUTO [id number] 05:29:00* Test Item Value Reference Range Interpretation [...] = 2801) 1 % 0-1 BASIC METABOLIC [id number] 05:28:00* Test Item Value Reference Range Interpretation [...] IS NOT APPLICABLE FOR DIALYSIS PATIENTS. POCT-GLUCOSE [id number] 21:21:00* Test Item Value Reference Range Interpretation Comments POC-GLUCOSE METER (BEAKER) (test code = 1538) 134 mg/dL 70-110 H : TESTED AT [facility] [address] [facility], [address]: L D Rn/Engineering And Development Director ID = [id number] for JAJA KC POCT-GLUCOSE [id number] 16:03:00* Test Item Value Reference Range Interpretation Comments POC-GLUCOSE METER (BEAKER) (test code = 1538) 120 mg/dL 70-110 H : TESTED AT [facility] [address] [facility], [address]: L D Rn/Engineering And Development Director ID = [id number] for GAVIN ERICKSON POCT-GLUCOSE [id number] 12:26:00* Test Item Value Reference Range Interpretation Comments POC-GLUCOSE METER (BEAKER) (test code = 1538) 118 mg/dL 70-110 H : TESTED AT [facility] [address] [facility], [address]: L D Rn/Engineering And Development Director ID = [id number] for Queen Mendenhall Surgically obtained culture + gram [id number] 09:22:00* Test Item Value Reference Range Interpretation [...] organisms seen Lab Interpretation (test code = 31526-8) [facility] + GRAM [id number] 09:22:00* Test Item Value Reference Range Interpretation [...] GRAM STAIN RESULT (BEAKER) (test code = 161863) No organisms seen POCT-GLUCOSE [id number] 07:24:00* Test Item Value Reference Range Interpretation Comments POC-GLUCOSE METER (BEAKER) (test code = 1538) 133 mg/dL 70-110 H : TESTED AT [facility] [address] [facility], [address]: L D Rn/Engineering And Development Director ID = [id number] for Queen Mendenhall BLOOD [id number] 07:00:00* Test Item Value Reference Range Interpretation Comments CULTURE (BEAKER) (test code = 1095) No growth in 5 days BLOOD [id number] 07:00:00* Test Item Value Reference Range Interpretation Comments CULTURE (BEAKER) (test code = 1095) No growth in 5 days BASIC METABOLIC [id number] 06:20:00* Test Item Value Reference Range Interpretation [...] DIALYSIS PATIENTS. CBC W/PLT COUNT & AUTO [id number] 05:22:00* Test Item Value Reference Range Interpretation [...] code = 2801) 1 % 0-1 POCT-GLUCOSE [id number] 23:11:00* Test Item Value Reference Range Interpretation Comments POC-GLUCOSE METER (BEAKER) (test code = 1538) 134 mg/dL 70-110 H : TESTED AT [facility] [address] [facility], [address]: L D Rn/Engineering And Development Director ID = [id number] for JAJA KC POCT-GLUCOSE [id number] 17:55:00* Test Item Value Reference Range Interpretation Comments POC-GLUCOSE METER (BEAKER) (test code = 1538) 117 mg/dL 70-110 H : TESTED AT [facility] [address] [facility], [address]: L D Rn/Engineering And Development Director ID = [id number] for MosesQueen POCT-GLUCOSE [id number] 12:24:00* Test Item Value Reference Range Interpretation Comments POC-GLUCOSE METER (BEAKER) (test code = 1538) 125 mg/dL 70-110 H : TESTED AT [facility] [address] [facility], [address]: L D Rn/Engineering And Development Director ID = [id number] for Queen Mendenhall POCT-GLUCOSE [id number] 07:16:00* Test Item Value Reference Range Interpretation Comments POC-GLUCOSE METER (BEAKER) (test code = 1538) 111 mg/dL 70-110 H : TESTED AT [facility] [address] [facility], [address]: L D Rn/Engineering And Development Director ID = [id number] for Queen Mendenhall BASIC METABOLIC [id number] 05:30:00* Test Item Value Reference Range Interpretation [...] DIALYSIS PATIENTS. CBC W/PLT COUNT & AUTO [id number] 04:49:00* Test Item Value Reference Range Interpretation [...] code = 2801) 1 % 0-1 POCT-GLUCOSE [id number] 20:10:00* Test Item Value Reference Range Interpretation Comments POC-GLUCOSE METER (BEAKER) (test code = 1538) 130 mg/dL 70-110 H : TESTED AT [facility] [address] [place] [address], [address]: L D Rn/Engineering And Development Director ID = [id number] for JAJA KC POCT-GLUCOSE [id number] 14:49:00* Test Item Value Reference Range Interpretation Comments POC-GLUCOSE METER (BEAKER) (test code = 1538) 110 mg/dL 70-110 : TESTED AT [facility] [address] [facility], [address]: L D Rn/Engineering And Development Director ID = [id number] for Queen Mendenhall HEMOGLOBIN AND [id number] 13:37:00* Test Item Value Reference Range Interpretation Comments HEMOGLOBIN (BEAKER) (test code = 410) 7.8 GM/DL 13.7-17.5 L HEMATOCRIT (BEAKER) (test code = 411) 24.4 % 40.1-51.0 L [id number] 13:15:00* Test Item Value Reference Range Interpretation Comments ACTIVATED CLOTTING TIME (BEAKER) (test code = 441) 274 sec Reference Range: 74-137 seconds, Baseline/TESTED AT [place] [id number] [facility] [address] POCT-GLUCOSE [id number] 11:38:00* Test Item Value Reference Range Interpretation Comments POC-GLUCOSE METER (BEAKER) (test code = 1538) 99 mg/dL 70-110 : TESTED AT [place] [id number] [facility], [address]: L D Rn/Engineering And Development Director ID = [id number] for ARELIS KAY POCT-GLUCOSE [id number] 07:52:00* Test Item Value Reference Range Interpretation Comments POC-GLUCOSE METER (BEAKER) (test code = 1538) 111 mg/dL 70-110 H : TESTED AT [address], [address]: L D Rn/Engineering And Development Director ID = [id number] for ARELIS KAY BASIC METABOLIC [id number] 05:43:00* Test Item Value Reference Range Interpretation [...] DIALYSIS PATIENTS. CBC W/PLT COUNT & AUTO [id number] 05:39:00* Test Item Value Reference Range Interpretation [...] = 2801) 1 % 0-1 Vancomycin level, [id number] 05:13:00* Test Item Value Reference Range Interpretation Comments Vancomycin Rm (test code = 73133-4) 15.1 ug/mL VLADIMIR (test code = VLADIMIR) Reference Range: No Normals [facility], [id number] 05:13:00* Test Item Value Reference Range Interpretation Comments VANCOMYCIN RANDOM (BEAKER) (test code = 523) 15.1 ug/mL Reference Range: No NormalsPOCT-GLUCOSE [id number] 21:55:00* Test Item Value Reference Range Interpretation Comments POC-GLUCOSE METER (BEAKER) (test code = 1538) 134 mg/dL 70-110 H : TESTED AT [address], [address]: L D Rn/Engineering And Development Director ID = [id number] for ALANIS LOVELL POCT-GLUCOSE [id number] 18:42:00* Test Item Value Reference Range Interpretation Comments POC-GLUCOSE METER (BEAKER) (test code = 1538) 142 mg/dL 70-110 H : TESTED AT [address], [address]: L D Rn/Engineering And Development Director ID = [id number] for CAAL, NOVA POCT-GLUCOSE [id number] 12:01:00* Test Item Value Reference Range Interpretation Comments POC-GLUCOSE METER (BEAKER) (test code = 1538) 128 mg/dL 70-110 H : TESTED AT [address], [address]: L D Rn/Engineering And Development Director ID = [id number] for CAAL, NOVA POCT-GLUCOSE [id number] 07:43:00* Test Item Value Reference Range Interpretation Comments POC-GLUCOSE METER (BEAKER) (test code = 1538) 110 mg/dL 70-110 : TESTED AT [facility] [address] [place], [address]: L D Rn/Engineering And Development Director ID = [id number] for NOVA CAAL Calcium, [id number] 07:19:00* Test Item Value Reference Range Interpretation Comments Calcium, Ion (test code = 1994-3) 1.11 mmol/L 1.12-1.27 L pH, Blood (test code = 85816-2) 7.42 Lab Interpretation (test code = 62360-6) Abnormal [facility]CAL[facility], [id number] 07:19:00* Test Item Value Reference Range Interpretation Comments CALCIUM IONIZED (BEAKER) (test code = 698) 1.11 mmol/L 1.12-1.27 L PH, BLOOD (BEAKER) (test code = 1810) 7.42 BASIC METABOLIC [id number] 05:19:00* Test Item Value Reference Range Interpretation [...] NOT APPLICABLE FOR DIALYSIS PATIENTS. VANCOMYCIN LEVEL, [id number] 05:17:00* Test Item Value Reference Range Interpretation Comments VANCOMYCIN RANDOM (BEAKER) (test code = 523) 20.9 ug/mL Reference Range: No [id number] 05:16:00* Test Item Value Reference Range Interpretation Comments PHOSPHORUS (BEAKER) (test code = 604) 3.1 mg/dL 2.3-4.7 [id number] 05:16:00* Test Item Value Reference Range Interpretation Comments MAGNESIUM (BEAKER) (test code = 627) 2.0 mg/dL 1.6-2.6 CBC W/PLT COUNT & AUTO [id number] 05:07:00* Test Item Value Reference Range Interpretation [...] code = 2801) 1 % 0-1 POCT-GLUCOSE [id number] 22:45:00* Test Item Value Reference Range Interpretation Comments POC-GLUCOSE METER (BEAKER) (test code = 1538) 108 mg/dL 70-110 : TESTED AT [facility] [address] [facility], [address]: L D Rn/Engineering And Development Director ID = [id number] for IDANIA L[address] HEMODIALYSIS [id number] 22:32:00Shanell Pacheco RN 01/18/2019 10:32 PM Tolerated [...] HEPBSAG Nonreactive 01/18/2019 [facility] [id number] 16:45:00* Test Item Value Reference Range Interpretation Comments POC-GLUCOSE METER (BEAKER) (test code = 1538) 173 mg/dL 70-110 H : TESTED AT [facility] [address] [facility], [address]: L D Rn/Engineering And Development Director ID = [id number] for RIGOBERTO BALLARD RAD, FOOT, MIN 3 VIEWS, [id number] 12:45:00Reason for exam:->post operative FINAL REPORT RAD, [...] MDReport Verified Date/Time: 01/18/2019 12:45:21 Reading Location: [facility] Reading Room Electronically signed by: TIMMY AMEZQUITA MD on 12/31 12:45 PM POCT-GLUCOSE [id number] 12:35:00* Test Item Value Reference Range Interpretation Comments POC-GLUCOSE METER (BEAKER) (test code = 1538) 145 mg/dL 70-110 H : TESTED AT [facility] [address] [facility], [address]: L D Rn/Engineering And Development Director ID = [id number] for NOVA CAAL HEPATITIS B SURFACE [id number] 04:57:00* Test Item Value Reference Range Interpretation Comments HEPATITIS B SURFACE ANTIGEN (2) (BEAKER) (test code = 2585) Nonreactive Nonreactive BASIC METABOLIC [id number] 04:48:00* Test Item Value Reference Range Interpretation [...] NOT APPLICABLE FOR DIALYSIS PATIENTS. VANCOMYCIN LEVEL, [id number] 04:33:00* Test Item Value Reference Range Interpretation Comments VANCOMYCIN RANDOM (BEAKER) (test code = 523) 13.9 ug/mL Reference Range: No NormalsCBC W/PLT COUNT & AUTO [id number] 04:32:00* Test Item Value Reference Range Interpretation [...] (test code = 2801) 1 % 0-1 [id number] 04:31:00* Test Item Value Reference Range Interpretation Comments MAGNESIUM (BEAKER) (test code = 627) 2.0 mg/dL 1.6-2.6 Specimen slightly hemolyzed [id number] 04:31:00* Test Item Value Reference Range Interpretation Comments PHOSPHORUS (BEAKER) (test code = 604) 3.5 mg/dL 2.3-4.7 Specimen slightly hemolyzed CALCIUM, [id number] 04:28:00* Test Item Value Reference Range Interpretation Comments CALCIUM IONIZED (BEAKER) (test code = 698) 1.06 mmol/L 1.12-1.27 L PH, BLOOD (BEAKER) (test code = 1810) 7.51 POCT-GLUCOSE [id number] 23:28:00* Test Item Value Reference Range Interpretation Comments POC-GLUCOSE METER (BEAKER) (test code = 1538) 127 mg/dL 70-110 H : TESTED AT [place] [address] [facility], [address]: L D Rn/Engineering And Development Director ID = [id number] for JAJA KC POCT-GLUCOSE [id number] 20:32:00* Test Item Value Reference Range Interpretation Comments POC-GLUCOSE METER (BEAKER) (test code = 1538) 116 mg/dL 70-110 H : TESTED AT [facility] [address] [facility], [address]: L D Rn/Engineering And Development Director ID = [id number] for JAJA KC POCT-GLUCOSE [id number] 18:30:00* Test Item Value Reference Range Interpretation Comments POC-GLUCOSE METER (BEAKER) (test code = 1538) 136 mg/dL 70-110 H : TESTED AT [place] [address] [facility], [address]: L D Rn/Engineering And Development Director ID = [id number] for VAMSHI MCDOWELLA Arterial doppler leg, [id number] 10:24:56Ejection FractionSLEH ECHO HEARTLAB MKCKESSON CPACSRight ImpressionFOR COMPARISON1. 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 !65.2 ! ! ! + + + + + ---------+ !Mid [employer]LEY[employer] ASSEMBLER ! !67.6 ! ! ! + + + + + + !Dist VOLLEYBALL ASSEMBLER ! !80.1 ! ! ! 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 !65.2 ! ! ! + + + + + -------+ !Mid VOLLEYBALL ASSEMBLER ! !67.6 ! ! ! + + + + + + ! 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 !80.1 ! ! ! + + [...] ! + + + + + -------+ [facility] [id number] 10:22:00* Test Item Value Reference Range Interpretation Comments POC-GLUCOSE METER (BEAKER) (test code = 1538) 163 mg/dL 70-110 H : TESTED AT [facility] [address] [facility], [address]: L D Rn/Engineering And Development Director ID = [id number] for ROOSEVELT BASHIR CBC W/PLT COUNT & AUTO [id number] 05:45:00* Test Item Value Reference Range Interpretation [...] = 2801) 1 % 0-1 BASIC METABOLIC [id number] 05:40:00* Test Item Value Reference Range Interpretation [...] GFR IS NOT APPLICABLE FOR DIALYSIS PATIENTS. [id number] 05:31:00* Test Item Value Reference Range Interpretation Comments PHOSPHORUS (BEAKER) (test code = 604) 3.4 mg/dL 2.3-4.7 [id number] 05:31:00* Test Item Value Reference Range Interpretation Comments MAGNESIUM (BEAKER) (test code = 627) 2.1 mg/dL 1.6-2.6 POCT-GLUCOSE [id number] 05:27:00* Test Item Value Reference Range Interpretation Comments POC-GLUCOSE METER (BEAKER) (test code = 1538) 125 mg/dL 70-110 H : TESTED AT [facility] [address] [facility], [address]: L D Rn/Engineering And Development Director ID = [id number] for DARRIAN GUNTER CALCIUM, [id number] 05:16:00* Test Item Value Reference Range Interpretation Comments CALCIUM IONIZED (BEAKER) (test code = 698) 1.16 mmol/L 1.12-1.27 PH, BLOOD (BEAKER) (test code = 1810) 7.45 PT/[id number] 21:56:00* Test Item Value Reference Range Interpretation [...] patie nts wiht mechanical heart valves.Comprehensive metabolic [id number] 21:48:00* Test Item Value Reference Range Interpretation Comments Protein, Total (test code = 2885-2) 7.0 6.0- 8.3 gm/dL Albumin (test code = 33633-9) 3.8 g/dL 3.5-5 Alkaline Phosphatase (test code = 6768-6) 74 U/L 40-150 Total Bilirubin (test code = 1975-2) 0.5 mg/dL 0.2-1.2 Sodium (test code = 2951-2) 138 meq/L 136-145 Potassium (test code = 2823-3) 3.9 meq/L 3.5-5.1 Chloride (test code = 2075-0) 97 meq/L 98-107 L CO2 (test code = 8-9) 32 meq/L 22-29 H BUN (test code = 3094-0) 23 mg/dL 7-21 H Creatinine (test code = 2160-0) 5.79 mg/dL 0.57-1.25 H Glucose (test code = 2345-7) 122 mg/dL 70-105 H Calcium (test code = 05650-5) 9.3 mg/dL 8.4-10.2 AST (test code = 1920-8) 13 U/L 5-34 ALT (test code = 1742-6) 11 U/L 6-55 EGFR (test code = 71309-0) 10 mL/min/1.73 sq m ESTIMATED GFR IS NOT ACCURATE CREATININE CLEARANCE IN PREDICTING GLOMERULAR FILTRATION RATE. ESTIMATED GFR IS NOT APPLICABLE FOR DIALYSIS PATIENTS. Lab Interpretation (test code = 94997-6) [facility]normal [facility] [id number] 21:48:00* Test Item Value Reference Range Interpretation Comments CRP (test code = 676) 10.00 mg/dL 0-0.5 H Lab Interpretation (test code = 87685-6) Abnormal [facility]fieldCOMPREHENSIVE METABOLIC [id number] 21:48:00* Test Item Value Reference Range Interpretation [...] IS NOT APPLICABLE FOR DIALYSIS PATIENTS. C-REACTIVE [id number] 21:48:00* Test Item Value Reference Range Interpretation Comments C-REACTIVE PROTEIN (BEAKER) (test code = 676) 10.00 mg/dL 0.00-0.5 0 H [id number] 21:47:00* Test Item Value Reference Range Interpretation Comments MAGNESIUM (BEAKER) (test code = 627) 2.1 mg/dL 1.6-2.6 CBC W/PLT COUNT & AUTO [id number] 21:31:00* Test Item Value Reference Range Interpretation [...] % 0-1 RAD, FOOT, MIN 3 VIEWS, [id number] 20:09:00Reason for exam:->WOUND CHECK FINAL REPORT CLINICAL [...] WAN MD on 01/16/2019 08:09 PM Blood Crqizxj8186-57-65 19:32:00* Test Item Value Reference Range Interpretation Comments Blood Culture (test code = 72456147) NO GROWTH AFTER 5 DAYS, FINAL REPORT [facility] [id number] 21:41:00 [place] [address] Patient Name: ADDI CARLSON JR MR #: [id number] : 12/1960 Age/Sex: 58/M Req #: [id number] Adm Physician: Ordered by: OCTAVIA ABRAMS MD Report #: [id number] Location: ER Room/Bed: Procedure: 0926-0 074 DX/FOOT [...] COPY TO: OCTAVIA ABRAMS MD Creatine Kinase [id number] 20:09:00* Test Item Value Reference Range Interpretation Comments Creatine Kinase MB (test code = 41450-7) 3.10 0-5.0 [place] [id number] 20:09:00* Test Item Value Reference Range Interpretation Comments Troponin I (test code = LUM0267) 0.056 0-0.300 [facility] CampusCreatine Kinase [id number] 20:09:00* Test Item Value Reference Range Interpretation Comments Creatine Kinase MB (test code = 39250-6) 3.10 0-5.0 [place] [id number] 20:09:00* Test Item Value Reference Range Interpretation Comments Troponin I (test code = TWC8671) 0.056 0-0.300 [facility] CampusCHES SINGLE (NOT PORTABLE)2018-11-24 20:05:00 [place] [address] Patient Name: ADDI CARLSON JR MR #: [id number] : 1960 Age/Sex: 58/M Req #: [id number] Adm Physician: Ordered by: ORESTES GONZALEZ REFRIGERATING TECHNICIAN Report #: [id number] Location: ER Room/Bed: Procedure: 0926-0 070 DX/CHEST SINGLE (NOT PORTABLE) Exam Date: 11/24/18 Exam Time: 1947 REPORT STATUS: S igned A single frontal [...] 11/24/182005 COPY TO: ORESTES GONZALEZ NP Prothrombin [id number] 19:48:00* Test Item Value Reference Range Interpretation Comments Prothrombin Time (test code = 5902-2) 14.1 11.9-14.5 [facility] CampusProthromb Time International Ratio 2018-11-24 19:48:00* Test Item Value Reference Range Interpretation Comments Prothromb Time International Ratio (test code = 6301-6) 1.04 Oral Anticoagulant Therapy INR Values:1. Low Intensity Therapy 1.5 - 2.02 . Moderate Intensity Therapy 2.0 - 3.03. High Intensity Therapy(1) 2.5 - 3. 54. High Intensity Therapy(2) 3.0 - 4.05. Panic Value INR > 5.0 [facility] CampusActivated Partial Thromboplast Time 2018-11-24 19:48:00* Test Item Value Reference Range Interpretation Comments Activated Partial Thromboplast Time (test code = 31047-6) 40.5 23.8-35.5 H [facility] CampusProthrombin [id number] 19:48:00* Test Item Value Reference Range Interpretation Comments Prothrombin Time (test code = 5902-2) 14.1 11.9-14.5 [facility] CampusProthromb Time International Ratio 2018-11-24 19:48:00* Test Item Value Reference Range Interpretation Comments Prothromb Time International Ratio (test code = 6301-6) 1.04 Oral Anticoagulant Therapy INR Values:1. Low Intensity Therapy 1.5 - 2.02 . Moderate Intensity Therapy 2.0 - 3.03. High Intensity Therapy(1) 2.5 - 3. 54. High Intensity Therapy(2) 3.0 - 4.05. Panic Value INR > 5.0 [facility] CampusActivated Partial Thromboplast Time 2018-11-24 19:48:00* Test Item Value Reference Range Interpretation Comments Activated Partial Thromboplast Time (test code = 51651-2) 40.5 23.8-35.5 H [facility] Campusodium [id number] 19:47:00* Test Item Value Reference Range Interpretation Comments Sodium Level (test code = 2951-2) 133 136-145 L [facility] CampusPotassium Zukiw1033-82-20 19:47:00* Test Item Value Reference Range Interpretation Comments Potassium Level (test code = 2823-3) 3.8 3.5-5.1 [facility] CampusChloride [id number] 19:47:00* Test Item Value Reference Range Interpretation Comments Chloride Level (test code = 2075-0) 93 98-107 L [facility] CampusCarbon Dioxide [id number] 19:47:00* Test Item Value Reference Range Interpretation Comments Carbon Dioxide Level (test code = 2028-9) 28 22-29 [facility] CampusAnion [id number] 19:47:00* Test Item Value Reference Range Interpretation Comments Anion Gap (test code = 31186-5) 15.8 8-16 [facility] CampusBlood Urea Dpyabyss5329-72-96 19:47:00* Test Item Value Reference Range Interpretation Comments Blood Urea Nitrogen (test code = 3094-0) 44 7-26 H [facility] CampusCreatinine2019-09-26 19:47:00* Test Item Value Reference Range Interpretation Comments Creatinine (test code = 2160-0) 8.77 0.72-1.25 H [facility] CampusBUN/Creatinine Ttrfu8953-49-38 19:47:00* Test Item Value Reference Range Interpretation Comments BUN/Creatinine Ratio (test code = 3097-3) 5 6-25 L [facility] CampusEstimat Glomerular Filtration Rate 2018-11-24 19:47:00* Test Item Value Reference Range Interpretation Comments Estimat Glomerular Filtration Rate (test code = 641463148) 6 >60 L Ranges were taken from the National Kidney Disease Education Program and the [facility] Hospitalal Kidney Foundation literature.Reference ranges:60 or greater: Kvjkoy55-94 ( for 3 consecutive months): Chronic kidney disease 15 or less: Kidney failureThe [facility] of [facility] CampusGlucose Kirqe4848-55-60 19:47:00* Test Item Value Reference Range Interpretation Comments Glucose Level (test code = MJT7011) 142 74-118 H [facility] CampusCalcium Tdssl8101-00-08 19:47:00* Test Item Value Reference Range Interpretation Comments Calcium Level (test code = 05287-7) 9.9 8.4-10.2 [facility] CampusLactic Acid Lqszb4867-96-64 19:47:00* Test Item Value Reference Range Interpretation Comments Lactic Acid Level (test code = Lactic Acid Level) 8.1 4.5- 19.8 [facility] CampusTotal Cerfdzrwx9392-86-69 19:47:00* Test Item Value Reference Range Interpretation Comments Total Bilirubin (test code = 1975-2) 1.0 0.2-1.2 [facility] CampusAspartate Amino Transf (AST/SGOT) 2018-11-24 19:47:00* Test Item Value Reference Range Interpretation Comments Aspartate Amino Transf (AST/SGOT) (test code = Aspartate Amino Transf (AST/SGOT)) 15 5-34 [facility] CampusAlanine Aminotransferase (ALT/SGPT) 2018-11-24 19:47:00* Test Item Value Reference Range Interpretation Comments Alanine Aminotransferase (ALT/SGPT) (test code = 1742-6) 12 0-55 [facility] CampusTotal Uajhcmg0223-94-64 19:47:00* Test Item Value Reference Range Interpretation Comments Total Protein (test code = 2885-2) 6.6 6.5-8.1 [facility] CampusAlbumin2019-09-26 19:47:00* Test Item Value Reference Range Interpretation Comments Albumin (test code = 1751-7) 3.5 3.5-5.0 [facility] CampusGlobulin2019-09-26 19:47:00* Test Item Value Reference Range Interpretation Comments Globulin (test code = 69388-9) 3.1 2.3-3.5 [facility] CampusAlbumin/Globulin Xivut8030-60-99 19:47:00 * Test Item Value Reference Range Interpretation Comments Albumin/Globulin Ratio (test code = 1759-0) 1.1 0.8-2.0 [facility] CampusAlkaline Ggblfshmxqf4787-59-17 19:47:00* Test Item Value Reference Range Interpretation Comments Alkaline Phosphatase (test code = 6768-6) 68 40-150 [facility] CampusCreatine Iivbtm1011-27-78 19:47:00* Test Item Value Reference Range Interpretation Comments Creatine Kinase (test code = 2157-6) 189 30-200 [facility] Campusodium Rdjoe5311-63-72 19:47:00* Test Item Value Reference Range Interpretation Comments Sodium Level (test code = 2951-2) 133 136-145 L [facility] CampusPotassium Kavbo2032-11-39 19:47:00* Test Item Value Reference Range Interpretation Comments Potassium Level (test code = 2823-3) 3.8 3.5-5.1 [facility] CampusChloride Hsdil1112-00-48 19:47:00* Test Item Value Reference Range Interpretation Comments Chloride Level (test code = 2075-0) 93 98-107 L [facility] CampusCarbon Dioxide Krfmr7390-22-44 19:47:00* Test Item Value Reference Range Interpretation Comments Carbon Dioxide Level (test code = 2028-9) 28 22-29 [facility] CampusAnion Eoz5682-90-95 19:47:00* Test Item Value Reference Range Interpretation Comments Anion Gap (test code = 22978-4) 15.8 8-16 [facility] CampusBlood Urea Wyxprgak8036-43-61 19:47:00* Test Item Value Reference Range Interpretation Comments Blood Urea Nitrogen (test code = 3094-0) 44 7-26 H [facility] CampusCreatinine2019-09-26 19:47:00* Test Item Value Reference Range Interpretation Comments Creatinine (test code = 2160-0) 8.77 0.72-1.25 H [facility] CampusBUN/Creatinine Fsdkd5859-30-16 19:47:00* Test Item Value Reference Range Interpretation Comments BUN/Creatinine Ratio (test code = 3097-3) 5 6-25 L [facility] CampusEstimat Glomerular Filtration Rate 2018-11-24 19:47:00* Test Item Value Reference Range Interpretation Comments Estimat Glomerular Filtration Rate (test code = 301757633) 6 >60 L Ranges were taken from the National Kidney Disease Education Program and the [facility] literature.Reference ranges:60 or greater: Srsjxv26-34 ( for 3 consecutive months): Chronic kidney disease 15 or less: Kidney failureThe [facility] of [facility] CampusGlucose Byzap6294-55-72 19:47:00* Test Item Value Reference Range Interpretation Comments Glucose Level (test code = SAV4872) 142 74-118 H [facility] CampusCalcium Odyvq6134-56-30 19:47:00* Test Item Value Reference Range Interpretation Comments Calcium Level (test code = 76113-5) 9.9 8.4-10.2 [facility] CampusLactic Acid Oclxt4173-45-29 19:47:00* Test Item Value Reference Range Interpretation Comments Lactic Acid Level (test code = Lactic Acid Level) 8.1 4.5- 19.8 [facility] CampusTotal Bzkldpwgl2843-58-80 19:47:00* Test Item Value Reference Range Interpretation Comments Total Bilirubin (test code = 1975-2) 1.0 0.2-1.2 [facility] CampusAspartate Amino Transf (AST/SGOT) 2018-11-24 19:47:00* Test Item Value Reference Range Interpretation Comments Aspartate Amino Transf (AST/SGOT) (test code = Aspartate Amino Transf (AST/SGOT)) 15 5-34 [facility] CampusAlanine Aminotransferase (ALT/SGPT) 2018-11-24 19:47:00* Test Item Value Reference Range Interpretation Comments Alanine Aminotransferase (ALT/SGPT) (test code = 1742-6) 12 0-55 [facility] Nzugjrc2783-42-40 19:47:00* Test Item Value Reference Range Interpretation Comments Total Protein (test code = 2885-2) 6.6 6.5-8.1 [facility] CampusAlbumin2019-09-26 19:47:00* Test Item Value Reference Range Interpretation Comments Albumin (test code = 1751-7) 3.5 3.5-5.0 [facility] CampusGlobulin2019-09-26 19:47:00* Test Item Value Reference Range Interpretation Comments Globulin (test code = 49680-1) 3.1 2.3-3.5 [facility] CampusAlbumin/Globulin Giekp2598-73-98 19:47:00 * Test Item Value Reference Range Interpretation Comments Albumin/Globulin Ratio (test code = 1759-0) 1.1 0.8-2.0 [facility] CampusAlkaline Bzadeynmzaq0422-47-96 19:47:00* Test Item Value Reference Range Interpretation Comments Alkaline Phosphatase (test code = 6768-6) 68 40-150 [facility] CampusCreatine Mgracj7009-46-67 19:47:00* Test Item Value Reference Range Interpretation Comments Creatine Kinase (test code = 2157-6) 189 30-200 [facility] CampusWhite Blood Dqeay3476-53-92 19:23:00* Test Item Value Reference Range Interpretation Comments White Blood Count (test code = 6690-2) 10.70 4.8-10.8 [facility] CampusRed Blood Octse4632-77-28 19:23:00* Test Item Value Reference Range Interpretation Comments Red Blood Count (test code = 789-8) 2.30 4.3-5.7 L [facility] CampusHemoglobin2019-09-26 19:23:00* Test Item Value Reference Range Interpretation Comments Hemoglobin (test code = 84933-5) 7.6 14.0-18.0 L [facility] CampusHematocrit2019-09-26 19:23:00* Test Item Value Reference Range Interpretation Comments Hematocrit (test code = 4544-3) 21.6 38.2-49.6 L [facility] CampusMean Corpuscular Vtryzo1842-24-64 19:23:00* Test Item Value Reference Range Interpretation Comments Mean Corpuscular Volume (test code = 787-2) 93.9 81-99 [facility] CampusMean Corpuscular Ffyfbzbjve6053-97-95 19:23:00* Test Item Value Reference Range Interpretation Comments Mean Corpuscular Hemoglobin (test code = 785-6) 33.0 28-32 H [facility] CampusMean Corpuscular Hemoglobin Concent 2018-11-24 19:23:00* Test Item Value Reference Range Interpretation Comments Mean Corpuscular Hemoglobin Concent (test code = 786-4) 35.2 31-35 H [facility] CampusRed Cell Distribution Mwcjx3668-62-29 19:23:00* Test Item Value Reference Range Interpretation Comments Red Cell Distribution Width (test code = 41668-6) 13.8 11.7 -14.4 [facility] CampusPlatelet Xwwnb6556-71-53 19:23:00* Test Item Value Reference Range Interpretation Comments Platelet Count (test code = 777-3) 143 140-360 [facility] CampusNeutrophils (%) (Auto)2018-11-24 19:23:00 * Test Item Value Reference Range Interpretation Comments Neutrophils (%) (Auto) (test code = 97969-4) 86.1 38.7-80.0 H [facility] CampusLymphocytes (%) (Auto)2018-11-24 19:23:00 * Test Item Value Reference Range Interpretation Comments Lymphocytes (%) (Auto) (test code = 736-9) 6.3 18.0-39.1 L [facility] CampusMonocytes (%) (Auto)2018-11-24 19:23:00* Test Item Value Reference Range Interpretation Comments Monocytes (%) (Auto) (test code = 5905-5) 6.4 4.4-11.3 [facility] CampusEosinophils (%) (Auto)2018-11-24 19:23:00 * Test Item Value Reference Range Interpretation Comments Eosinophils (%) (Auto) (test code = 713-8) 0.5 0.0-6.0 [facility] CampusBasophils (%) (Auto)2018-11-24 19:23:00* Test Item Value Reference Range Interpretation Comments Basophils (%) (Auto) (test code = 706-2) 0.2 0.0-1.0 [facility] CampusIM GRANULOCYTES %2018-11-24 19:23:00* Test Item Value Reference Range Interpretation Comments IM GRANULOCYTES % (test code = IM GRANULOCYTES %) 0.5 0.0- 1.0 [facility] CampusNeutrophils # (Auto)2018-11-24 19:23:00* Test Item Value Reference Range Interpretation Comments Neutrophils # (Auto) (test code = 751-8) 9.2 2.1-6.9 H [facility] CampusLymphocytes # (Auto)2018-11-24 19:23:00* Test Item Value Reference Range Interpretation Comments Lymphocytes # (Auto) (test code = 86053-1) 0.7 1.0-3.2 L [facility] CampusMonocytes # (Auto)2018-11-24 19:23:00* Test Item Value Reference Range Interpretation Comments Monocytes # (Auto) (test code = 742-7) 0.7 0.2-0.8 [facility] CampusEosinophils # (Auto)2018-11-24 19:23:00* Test Item Value Reference Range Interpretation Comments Eosinophils # (Auto) (test code = 711-2) 0.1 0.0-0.4 [facility] CampusBasophils # (Auto)2018-11-24 19:23:00* Test Item Value Reference Range Interpretation Comments Basophils # (Auto) (test code = 704-7) 0.0 0.0-0.1 [facility] CampusAbsolute Immature Granulocyte (auto 2018-11-24 19:23:00* Test Item Value Reference Range Interpretation Comments Absolute Immature Granulocyte (auto (harry t code = Absolute Immature Granulocyte (auto) 0.05 0-0.1 [facility] CampusWhite Blood Iurmu9160-70-40 19:23:00* Test Item Value Reference Range Interpretation Comments White Blood Count (test code = 6690-2) 10.70 4.8-10.8 [facility] CampusRed Blood Akvtp9829-52-05 19:23:00* Test Item Value Reference Range Interpretation Comments Red Blood Count (test code = 789-8) 2.30 4.3-5.7 L [facility] CampusHemoglobin2019-09-26 19:23:00* Test Item Value Reference Range Interpretation Comments Hemoglobin (test code = 60299-5) 7.6 14.0-18.0 L [facility] CampusHematocrit2019-09-26 19:23:00* Test Item Value Reference Range Interpretation Comments Hematocrit (test code = 4544-3) 21.6 38.2-49.6 L [facility] CampusMean Corpuscular Akapjt2843-39-20 19:23:00* Test Item Value Reference Range Interpretation Comments Mean Corpuscular Volume (test code = 787-2) 93.9 81-99 [facility] CampusMean Corpuscular Adjrstycti6635-55-88 19:23:00* Test Item Value Reference Range Interpretation Comments Mean Corpuscular Hemoglobin (test code = 785-6) 33.0 28-32 H [facility] CampusMean Corpuscular Hemoglobin Concent 2018-11-24 19:23:00* Test Item Value Reference Range Interpretation Comments Mean Corpuscular Hemoglobin Concent (test code = 786-4) 35.2 31-35 H [facility] CampusRed Cell Distribution Tyeuc8120-36-79 19:23:00* Test Item Value Reference Range Interpretation Comments Red Cell Distribution Width (test code = 95025-7) 13.8 11.7 -14.4 [facility] CampusPlatelet Chnsd2182-55-89 19:23:00* Test Item Value Reference Range Interpretation Comments Platelet Count (test code = 777-3) 143 140-360 [facility] CampusNeutrophils (%) (Auto)2018-11-24 19:23:00 * Test Item Value Reference Range Interpretation Comments Neutrophils (%) (Auto) (test code = 03735-9) 86.1 38.7-80.0 H [facility] CampusLymphocytes (%) (Auto)2018-11-24 19:23:00 * Test Item Value Reference Range Interpretation Comments Lymphocytes (%) (Auto) (test code = 736-9) 6.3 18.0-39.1 L [facility] CampusMonocytes (%) (Auto)2018-11-24 19:23:00* Test Item Value Reference Range Interpretation Comments Monocytes (%) (Auto) (test code = 5905-5) 6.4 4.4-11.3 [facility] CampusEosinophils (%) (Auto)2018-11-24 19:23:00 * Test Item Value Reference Range Interpretation Comments Eosinophils (%) (Auto) (test code = 713-8) 0.5 0.0-6.0 [facility] CampusBasophils (%) (Auto)2018-11-24 19:23:00* Test Item Value Reference Range Interpretation Comments Basophils (%) (Auto) (test code = 706-2) 0.2 0.0-1.0 [facility] CampusIM GRANULOCYTES %2018-11-24 19:23:00* Test Item Value Reference Range Interpretation Comments IM GRANULOCYTES % (test code = IM GRANULOCYTES %) 0.5 0.0- 1.0 [facility] CampusNeutrophils # (Auto)2018-11-24 19:23:00* Test Item Value Reference Range Interpretation Comments Neutrophils # (Auto) (test code = 751-8) 9.2 2.1-6.9 H [facility] CampusLymphocytes # (Auto)2018-11-24 19:23:00* Test Item Value Reference Range Interpretation Comments Lymphocytes # (Auto) (test code = 79166-7) 0.7 1.0-3.2 L [facility] CampusMonocytes # (Auto)2018-11-24 19:23:00* Test Item Value Reference Range Interpretation Comments Monocytes # (Auto) (test code = 742-7) 0.7 0.2-0.8 [facility] CampusEosinophils # (Auto)2018-11-24 19:23:00* Test Item Value Reference Range Interpretation Comments Eosinophils # (Auto) (test code = 711-2) 0.1 0.0-0.4 [facility] CampusBasophils # (Auto)2018-11-24 19:23:00* Test Item Value Reference Range Interpretation Comments Basophils # (Auto) (test code = 704-7) 0.0 0.0-0.1 [facility] CampusAbsolute Immature Granulocyte (auto 2018-11-24 19:23:00* Test Item Value Reference Range Interpretation Comments Absolute Immature Granulocyte (auto (harry t code = Absolute Immature Granulocyte (auto) 0.05 0-0.1 [facility] Thdcryc9327-34-98 19:07:00* Test Item Value Reference Range Interpretation Comments Bedside Glucose (test code = 87730-7) 153 70-120 H Meter ID: [id number] [facility] Glucose 2018-11-24 19:07:00* Test Item Value Reference Range Interpretation Comments Bedside Glucose (test code = 12973-0) 153 70-120 H Meter ID: [id number] [facility] CampusCHEST 2 VIEWS 2018-03-03 15:32:00 [facility] [address] [address] Patient Name: ADDI CARLSON JR MR #: [id number] : 1960 Age/Sex: 57/M Req #: [id number] Adm Physician: Ordered by: OLGA CRANE MD Report #: [id number] Location: [facility] Room/Bed: Procedure: 0103- 48 DX/CHEST 2 VIEWS Exam Date: 03/03/18 Exam Time: 1 410 REPORT STATUS: Signed EXAMIN ATION: CHEST 2 VIEWS INDICATION: [id number] COUGH COMPARISON: None FINDINGS: PA and [...] on 03/03/2018 3:33 PM Dictated By: DEEPA pennington Signed By: DEEPA VELOZ MD on 03/03/18 1533 Transcribed By: HEAVEN on 0 03/03/18 1533 COPY TO: OLGA CRANE MD CT ABDOMEN/PELVIS WO 2017-12-14 15:03:00 [address] [address] Patient Name: ADDI CARLSON JR MR #: [id number] : 1960 Age/Sex: 57/M Req #: [id number] Adm Physician: Ordered by: ANDI JAIN MD Report #: [id number] Location: CT Room/Bed: Procedure: 1016-[address]/CT ABDOMEN/PELVIS WO Exam Date: Exam Time: REPORT STATUS: Signed EXAM: CT Abd omen and Pelvis WITHOUT contrast INDICATION: Left lower quadrant / flank laura n COMPARISON: None. TECHNIQUE: Abdomen and pelvis were scanned utilizing a m ulABODOtector helical scanner from the lung base to [...] MD HIP RIGHT 2-3 VW (+/- PELVIS) [address] [address] Patient Name: ADDI CARLSON JR MR #: [id number] : 1960 Age/Sex: 56/M Req #: [id number] Adm Physician: Ordered by: ANDI JAIN MD Report #: [id number] Location: [facility] Room/Bed: Procedure: [id number] DX/HIP RIGHT 2-3 VW (+/- PELVIS) Exam [...] Dict ated By: NEREIDA PIERRE MD, MD 06 Transcribed By: HEAVEN on 03/25/171606 COPY TO: ANDI FERNANDES MD
[2019-10-12 23:16] VITALS: BP 172/92
[2019-10-13] VITALS (9 sets, daily range): BP systolic 115–177; BP diastolic 63–81
[2019-10-13] MEDS: PANTOPRAZOLE 40 MG 10ML VIAL IV SCH ×2 (00:10→21:00)
--- NOTE | 2019-10-13 00:15 | NUR ---
Received pt from ER. Report received from MARKOS Centeno prior to arrival. Pt alert and awake. Denies any pain or discomfort. Vitals stable. IV intact and patent. Orders reviewed. Will implement new orders and continue to monitor pt.
[2019-10-13] MEDS ORDERED: PIPERACILLIN/TAZO 4.5 GM 100 ML IV ONE (00:32)
--- NOTE | 2019-10-13 02:00 | NUR ---
Pt requests a Benadryl due to his "sinus problems." Spoke to Dr. Gamboa via phone. New orders received. Will continue to monitor.
[2019-10-13] MEDS ORDERED: VELPHORO500 MG PO (02:06)
[2019-10-13] MEDS ORDERED: CLONIDINE HCL 0.2 MG TAB PO PRN (02:15)
[2019-10-13] MEDS: DIPHENHYDRAMINE HCL 25 MG CAP PO PRN (02:25)
--- NOTE | 2019-10-13 03:15 | NUR ---
Second unit of blood started. Pt tolerating well. Denies any pain or discomfort. Vitals stable. Will continue to monitor pt.
--- NOTE | 2019-10-13 06:41 | NUR ---
Nephrology consult called in for Dr. Jaime.
--- NOTE | 2019-10-13 07:00 | NUR ---
BEDSIDE SHIFT REPORT RECEIVED FROM THE APPLICATOR SPRAYER RN. EDUCATED PT ABOUT FALL PRECAUTIONS. PT VERBALIZED UNDERSTANDING. CALL LIGHT WITH IN EASY REACH. BED IS LOW AND LOCKED. SIDE RAILS X2. ALL SAFETY MEASURES IN PLACE. PT DENIES NEEDS AT THIS TIME.
[2019-10-13 08:11] LABS: ALBUMIN 3.2 g/dL (3.5-5.0); ALBUMIN/GLOBULIN RATIO 1.5 (0.8-2.0); ANION GAP 16.2 mmol/L (8-16); CALCIUM 9.1 mg/dL (8.4-10.2); CREATININE, SERUM 8.12 mg/dL (0.72-1.25); POTASSIUM 4.2 mmol/L (3.5-5.1)
[2019-10-13 08:12] LABS: % IRON SATURATION 44 % (15-50); IRON 77 ug/dL (65-175); TOTAL IRON BINDING CAPACITY 174 ug/dL (261-478); TRANSFERRIN 124 mg/dL (174-364)
[2019-10-13] MEDS: LOSARTAN POTASSIUM 100 MG TAB PO SCH (08:25)
[2019-10-13] MEDS: AZITHROMYCIN 500MG/NS 250 ML 250 ML IV SCH (08:25)
[2019-10-13] MEDS: CARVEDILOL 12.5 MG TAB PO SCH ×2 (08:25→17:00)
[2019-10-13 08:26] LABS: BASOPHILS % 0.3 % (0.0-1.0); EOSINOPHILS # (AUTO) 0.1 (0.0-0.4); EOSINOPHILS % 2.3 % (0.0-6.0); LYMPHOCYTES # (AUTO) 0.8 (1.0-3.2); LYMPHOCYTES % 19.6 % (18.0-39.1); MEAN CORPUSCULAR HEMOGLOBIN 30.3 pg (28-32); MEAN CORPUSCULAR HGB CONC 32.7 g/dL (31-35); MEAN CORPUSCULAR VOLUME 92.5 fL (81-99); MONOCYTES # (AUTO) 0.2 (0.2-0.8); MONOCYTES % 4.3 % (4.4-11.3); NEUTROPHILS # (AUTO) 2.9 (2.1-6.9); RED BLOOD COUNT 2.28 x10e6/uL (4.3-5.7); RED CELL DISTRIBUTION WIDTH 16.5 % (11.7-14.4)
[2019-10-13 08:29] LABS: HEMATOCRIT 20.4 % (38.2-49.6); HEMOGLOBIN 6.7 g/dL (14.0-18.0)
[2019-10-13 08:30] LABS: PLATELET COUNT 97 x10e3/uL (140-360)
--- NOTE | 2019-10-13 08:30 | NUR ---
PAGED DR. JAIN OFFICE REGARDING PT BLOOD SUGAR 153, HGB 6.7 AND HCT 20.4
--- NOTE | 2019-10-13 08:33 | History and Physical ---
CHIEF COMPLAINT: "I feel very weak." HISTORY OF PRESENT ILLNESS: This is a 59-year-old man, who was sent to emergency room by his renal specialist because of uutqd-cf-bmelbhp anemia. This gentleman has known history of chronic anemia secondary to end-stage renal disease, but recently was found to have a hemoglobin of 5.9 g/dL according to the patient. In the emergency room on this admission, he was also found to have a hemoglobin of 5.9 g/dL with an MCV of 97, RDW 15.9. The patient's white blood cell count is low 4400 with 78% segmented neutrophils. The patient's platelet count is low 106,000. The patient's BUN and creatinine were 68 and 7.30 respectively, but he does have end-stage renal disease. The patient's lactic acid was normal at 0.7. The patient underwent a chest film in the emergency room, that revealed patchy airspace opacity in the right lung base. The patient states he was checked for COVID-19 infection on October 07, 2019, and the results were negative. The patient states his stools have been dark lately; however, he is on a medication called Velphoro, which according to the patient causes stool to be dark. The patient does have abdominal pain. The patient denies any chest pain, shortness of breath, or cough. His only complaints are weakness and fatigue. The patient was taking aspirin and clopidogrel since he has history of arterial stent placement in his right lower leg. REVIEW OF SYSTEMS: GENERAL: The patient's weight is stable. No fever or chills, but states he had generalized weakness and fatigue last week. HEENT: No headaches. No visual changes. CARDIOVASCULAR: No chest pain, shortness of breath, or cough. GI: No nausea, vomiting, or constipation. The patient's stool has been dark for several weeks, but he is on Velphoro, which he states causes stool to be dark. : He does not make urine. He is currently undergoing hemodialysis 3 times a week. NEUROMUSCULAR: Denies any focal limb weakness, but he has numbness in his feet from diabetic peripheral neuropathy. PAST MEDICAL HISTORY: 1. Anemia secondary to chronic disease/chronic kidney disease. 2. Chronic systolic/diastolic congestive heart failure. 3. Hypertensive heart disease. 4. Type 2 diabetes mellitus. 5. Diabetic peripheral neuropathy. 6. End-stage renal disease. 7. Peripheral arterial disease. PAST SURGICAL HISTORY: 1. Multiple toe amputations from left foot. 2. 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 3. Left upper extremity AV fistula placement. 4. Multiple left lower leg arterial stents placed. FAMILY HISTORY: Multiple family members with type 2 diabetes mellitus, but no family members to his knowledge required renal replacement therapy such as dialysis. ALLERGIES: NO KNOWN DRUG ALLERGIES. CURRENT MEDICATIONS: 1. Aspirin 81 mg daily. 2. Clopidogrel 75 mg daily. 3. Carvedilol 25 mg b.i.d. 4. Clonidine 0.2 mg once daily as needed for elevated blood pressure. 5. Lantus insulin 10 units subcutaneous every night. 6. Humulin R insulin sliding scale as needed. 7. Multivitamin once daily. 8. Velphoro 500 mg once daily. 9. Tramadol 50 mg q.6 hours p.r.n. pain. SOCIAL HISTORY: He is and lives with his . He is unemployed, but receiving disability benefits due to the fact that he has end-stage renal disease. The patient states he currently does not smoke tobacco or drink alcohol. PHYSICAL EXAMINATION: GENERAL: He is awake. He is alert. He is anxious, but cooperative on exam. He does not appear to be in any respiratory distress. In fact, he does not look dyspneic. VITAL SIGNS: Height 6 feet 1 inch, weight 184 pounds, BMI 25. Blood pressure currently is 178/64, pulse 72, respiratory rate 16, oxygen 100%, temperature 98.8. INTEGUMENT: Skin is warm and dry. Obvious pallor. No jaundice or diaphoresis. HEENT: Anterior sclerae. Moist mucous membranes. NECK: Supple. No evidence of jugular venous distention. CARDIOVASCULAR: Distant heart sounds. Regular rate and rhythm with an S3 and S4 gallop. LUNGS: Diminished breath sounds at the bases. ABDOMEN: Soft, normal bowel sounds, nontender. EXTREMITIES: No edema, but he has evidence of multiple toe amputations on his left foot. He also has evidence of left index finger amputation. NEUROLOGIC: No gross deficits. He has no pinprick sensation to plantar aspect of the feet. DIAGNOSES: 1. Ydlyu-pe-arihuig anemia. 2. Anemia secondary to chronic disease and chronic kidney disease. 3. Possible right lower lobe pneumonia. 4. Chronic systolic/diastolic congestive heart failure. 5. Hypertensive heart disease. 6. End-stage renal disease. 7. Pancytopenia. 8. Type 2 diabetes mellitus with neuropathy. PLAN: 1. Hold clopidogrel and aspirin. 2. Start intravenous pantoprazole. 3. Order hemoccult stool. 4. Consult Gastroenterology. 5. We will consult the patient's bridge engineer since he will likely require hemodialysis. 6. We will check a B-type natriuretic peptide level to assess for intravascular volume overload. 7. We will start intravenous antibiotics as this patient may have pneumonia. 8. We will recheck the patient's COVID-19 status. 9. We will order liver sonography since he has pancytopenia and he could potentially have underlying liver cirrhosis. 10. We will check iron studies, vitamin B12, RBC, folate level since he has xmjlm-nf-gjfpezu anemia. 11. Blood pressure control. 12. Blood glucose control. 13. Empathetic listening. 14. Reassurance. I spent an hour in the care of this patient. MD MAYELA Her/MIMI /[id number] MTDD
[2019-10-13 08:39] LABS: FERRITIN > 2000.00 ng/mL (21.81-274.66)
[2019-10-13] MEDS ORDERED: SODIUM CHLORIDE 0.9% 250ML 250 ML ONE (08:41)
[2019-10-13] MEDS ORDERED: CEFEPIME HCL 1 GM VIAL IV SCH (09:00)
[2019-10-13] MEDS ORDERED: DEXTROSE 50% SYRINGE 50 ML IV PRN (09:00)
[2019-10-13] MEDS ORDERED: PANTOPRAZOLE INJ 40 MG in SODIUM CHLORIDE 0.9% 50ML 50 ML IV SCH (09:00)
[2019-10-13] MEDS: INSULIN GLARGINE 100 UNITS/ML VIAL SQ SCH ×2 (09:15→20:59)
[2019-10-13] MEDS: INSULIN LISPRO 100 UNIT/1 ML 3ML VIAL SQ SCH ×4 (09:15→20:45)
--- NOTE | 2019-10-13 10:00 | NUR ---
PT GIVEN CONSENT FOR HEMODIALYSIS. PT DENIED FURTHER NEEDS.
[2019-10-13] MEDS: CEFEPIME 1GM/NS 0.9% 50 ML 50 ML IV SCH (11:00)
[2019-10-13 11:14] LABS: BASOPHILS % 0.3 % (0.0-1.0); EOSINOPHILS # (AUTO) 0.1 (0.0-0.4); EOSINOPHILS % 2.3 % (0.0-6.0); LYMPHOCYTES # (AUTO) 0.6 (1.0-3.2); MEAN CORPUSCULAR HEMOGLOBIN 30.9 pg (28-32); MEAN CORPUSCULAR HGB CONC 33.5 g/dL (31-35); MEAN CORPUSCULAR VOLUME 92.3 fL (81-99); MONOCYTES # (AUTO) 0.2 (0.2-0.8); MONOCYTES % 4.6 % (4.4-11.3); NEUTROPHILS # (AUTO) 2.7 (2.1-6.9); NEUTROPHILS % 76.2 % (38.7-80.0); RED BLOOD COUNT 2.07 x10e6/uL (4.3-5.7); RED CELL DISTRIBUTION WIDTH 16.4 % (11.7-14.4)
[2019-10-13 11:36] LABS: HEMOGLOBIN 6.4 g/dL (14.0-18.0)
[2019-10-13 11:37] LABS: HEMATOCRIT 19.1 % (38.2-49.6); PLATELET COUNT 107 x10e3/uL (140-360)
--- NOTE | 2019-10-13 11:45 | NUR ---
BHARAT JAIN OFFICE AND REPORTED PT HGB VALUES 6.4 AND HCT 19.1.
--- NOTE | 2019-10-13 12:00 | NUR ---
GIVE 1 UNIT OF BLOOD DURING DIALYSIS PER DR. JAIN.
--- NOTE | 2019-10-13 12:00 | NUR ---
OCCULT BLOOD STOOL SAMPLE GIVEN TO THE LAB.
--- NOTE | 2019-10-13 12:30 | NUR ---
PT REQUESTED BLOOD TRANSFUSION AT THE TIME OF DIALYSIS.
--- NOTE | 2019-10-13 13:25 | Consultation ---
DATE OF CONSULTATION: 10/13/2019 PULMONARY CONSULTATION: THE PATIENT OF DR. KARLA JAIN AND DR. BELTRAN.: HISTORY OF PRESENT ILLNESS: [place] 59-year-old gentleman with history of end-stage renal disease, heart failure, peripheral vascular disease, insulin-dependent diabetes, hypertension, recent grafting of a left heel ulcer, admitted with severe anemia, hemoglobin 6.7. He is somewhat poor historian. Drank alcohol in the past. Never smoked. Quit drinking 10 years ago. FAMILY HISTORY: Positive for diabetes and coronary artery disease. He has an AV fistula left arm. He has had peripheral angioplasties in the past. Amputations of toes in the left foot one finger. 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 Born in [place], [place]. PHYSICAL EXAMINATION: GENERAL: He is a well-developed white male, in no acute distress, on the phone with his . VITAL SIGNS: Temperature 97.9, pulse 73, blood pressure 174/74. Denies dyspnea. HEAD: Normocephalic, atraumatic. EYES: Extraocular movements intact. LUNGS: Few rales at bases. HEART: Regular rate and rhythm. ABDOMEN: Nontender. EXTREMITIES: Fistula in the wound left heel. O2 saturation is 100% nasal cannula. Chest x-ray reviewed suspicious for volume overload rather than pneumonia. The etiology of his severe anemia is unclear. Hemoglobin of 5.9 on admission. Platelet count of 106, white count of 4.8. The patient may require bone marrow examination. Volume status will defer to Renal service. Follow up chest x-ray in a.m. COVID PCR was drawn and is negative. Thank you for this kind referral. José Miguel Escobar MD DS/MODL /[id number]
--- NOTE | 2019-10-13 13:34 | NUR ---
PT OFF UNIT TO RADIOLOGY IN SAFE CONDITION.
[2019-10-13] MEDS ORDERED: SODIUM CHLORIDE 0.9% 250ML 250 ML IV ONE ×2 (14:00→14:45)
--- NOTE | 2019-10-13 14:12 | Diagnostic Imaging Report ---
EXAM: US LIVER DATE: 10/13/2019 1:40 PM INDICATION: Anemia, pancytopenia, possible cirrhosis COMPARISON: None FINDINGS: The pancreas is not well-visualized secondary to prominent overlying bowel gas. The liver is normal in size measuring 16.4 cm in length. Hepatic echogenicity is within normal limits. No focal hepatic abnormality is identified. The main portal vein is patent with antegrade flow and diameter of 1.2 cm, within normal limits. An echogenic stone is identified within the lumen of the gallbladder. There is no evidence for gallbladder wall thickening or pericholecystic fluid. There is no intra or extra hepatic biliary ductal dilatation. The common bile duct measures 3 mm sonographic Calvo's sign is negative. The right kidney appears decreased in size measuring 8.4 cm in length with decreased cortical thickness and increased cortical echogenicity. There is no evidence for solid renal mass, hydronephrosis, or shadowing calculi within the right kidney. The visualized portions the IVC and aorta are within normal limits. There is no ascites visualized within the right upper quadrant. IMPRESSION: Unremarkable sonographic appearance of the liver. Cholelithiasis without sonographic evidence for acute cholecystitis. Findings suggestive of chronic medical renal disease. Signed by: Dr. Oracio Ward MD on 10/13/2019 2:09 PM
--- NOTE | 2019-10-13 14:34 | NUR ---
GIVE 1 UNIT OF BLOOD DURING DIALYSIS PER DR. BELTRAN.
--- NOTE | 2019-10-13 14:36 | NUR ---
TOTAL 2 UNITS OF BLOOD NEEDS TO BE GIVEN TO THE PT WITH DIALYSIS PER DR. BELTRAN. HOSPICE/HOME HEALTH AIDE AT BEDSIDE.
--- NOTE | 2019-10-13 15:11 | Consultation ---
DATE OF CONSULTATION: 10/13/2019 HISTORY OF PRESENT ILLNESS: A 59-year-old gentleman, underlying history of diabetes, diabetic kidney disease, peripheral neuropathy, retinopathy, and peripheral vascular disease. He is on dialysis at [facility] with my group, Dr. Leary, admitted with black stools and anemia, strong suspicion of GI bleed. The patient also currently is awake, alert. Denies any nausea, vomiting, shortness of breath. Received 2 units of packed RBC earlier. Hemoglobin remains low at 6.4. He continues to have black-colored stools. Denies any abdominal pain. White count is 3.5, hemoglobin 6.4. Potassium level is 4.2. ALLERGIES: HE HAS NO KNOWN DRUG ALLERGIES. CURRENT MEDICATIONS: Include losartan 50 mg daily, Protonix injection, clonidine p.r.n., piperacillin/tazobactam, azithromycin, and cefepime. He is ruled out for COVID. He has a ferritin level of more than 2000. BNP of 749. PAST MEDICAL HISTORY: As above, history of hypertension, history of PCI stent placement, history of congestive heart failure, history of multiple toe amputations, index finger amputation, history of AV fistula placement. FAMILY HISTORY: Strongly positive for diabetes. SOCIAL HISTORY: . Does not smoke or drink. Family history, as above. PHYSICAL EXAMINATION: GENERAL: Awake, alert, and oriented x3. No apparent distress. VITAL SIGNS: Blood pressure 115/65, pulse rate 77, and afebrile. HEAD AND NECK: Cornea clear. Oral mucosa moist. LUNGS: Bibasilar rales. HEART: S1 and S2 audible. ABDOMEN: Otherwise soft and nontender. IMPRESSION AND PLAN: Most likely gastrointestinal bleed. Dr. Jose Arana to see, will probably need endoscopies. I will arrange for dialysis, transfuse 2 more units of packed RBC. Obtain clinic records. Please see orders. MD HAL Plascencia/MIMI /[id number]
[2019-10-13] MEDS ORDERED: SODIUM CHLORIDE 0.9% 1000ML 1,000 ML ONE (15:45)
--- NOTE | 2019-10-13 16:55 | NUR ---
BLOOD TRANSFUSION STARTED BY BLANKET WEAVER.
--- NOTE | 2019-10-13 17:07 | NUR ---
Nutrition Screen Note RD Recommendation for Physician: -Recommend to continue current diet as ordered Plan of Care: RD following, monitoring for tolerance and adequacy Nutrition reason for involvement: Nutrition Risk Trigger Primary Diagnose(s): anemia, pneumonia PMH: Anemia secondary to chronic disease/chronic kidney disease, Chronic systolic/diastolic congestive heart failure, Hypertensive heart disease, Type 2 diabetes mellitus, Diabetic peripheral neuropathy, End-stage renal disease, Peripheral arterial disease. Ht: 73 in Wt:194 lb BMI: 25.6 kg/m2 IBW:[address] Assessment: (10/13/19) Chart reviewed. Labs and meds reviewed. Pt is a 59 year old male admitted with anemia and pneumonia. Pt reports eating all of his meals and that he last weighed 195 lbs 2-3 weeks ago. No N/V/D/C or chewing/swallowing issues. Pt requested renal and diabetic diet educational materials which were provided. Will continue to monitor. Current Diet: renal/1800 ADA Malnutrition Evaluation (10/13/19) The patient does not meet criteria for a specified degree of malnutrition at this time. Will re-evaluate at follow-up as appropriate. Diet Education Needs Assessment: Pt requested renal and diabetic diet education materials. RD provided pt with renal diet as well as carbohydrate counting and reading the food label written materials. Pt was not interested in verbal education at time of visit and stated he will read provided materials at a later time. Encouraged pt to contact RD if he has questions. Nutrition Care Level: low Signed: Michaela Steven, ANAND, LD
--- NOTE | 2019-10-13 17:50 | NUR ---
SECOND UNIT OF BLOOD TRANSFUSION STARTED BY GUTTER MOUTH CUTTER.
--- NOTE | 2019-10-13 19:08 | NUR ---
BEDSIDE SHIFT REPORT GIVEN TO THE DE ICER KIT ASSEMBLER RN. RENTAL COUNTER CLERK AT BEDSIDE. PT DENIED FURTHER NEEDS.
[2019-10-14] VITALS (7 sets, daily range): BP systolic 148–170; BP diastolic 67–78
[2019-10-14] MEDS: DIPHENHYDRAMINE HCL 25 MG CAP PO PRN (00:27)
[2019-10-14 06:51] LABS: BASOPHILS % 0.6 % (0.0-1.0); EOSINOPHILS # (AUTO) 0.1 (0.0-0.4); EOSINOPHILS % 2.9 % (0.0-6.0); HEMATOCRIT 24.1 % (38.2-49.6); HEMOGLOBIN 8.1 g/dL (14.0-18.0); LYMPHOCYTES # (AUTO) 0.8 (1.0-3.2); LYMPHOCYTES % 26.1 % (18.0-39.1); MEAN CORPUSCULAR HEMOGLOBIN 29.8 pg (28-32); MEAN CORPUSCULAR HGB CONC 33.6 g/dL (31-35); MEAN CORPUSCULAR VOLUME 88.6 fL (81-99); MONOCYTES # (AUTO) 0.1 (0.2-0.8); MONOCYTES % 4.2 % (4.4-11.3); NEUTROPHILS % 65.9 % (38.7-80.0); PLATELET COUNT 98 x10e3/uL (140-360); RED BLOOD COUNT 2.72 x10e6/uL (4.3-5.7); RED CELL DISTRIBUTION WIDTH 16.7 % (11.7-14.4)
[2019-10-14 07:19] LABS: ALBUMIN 3.1 g/dL (3.5-5.0); ALBUMIN/GLOBULIN RATIO 1.4 (0.8-2.0); ANION GAP 15.6 mmol/L (8-16); CALCIUM 8.6 mg/dL (8.4-10.2); CREATININE, SERUM 5.98 mg/dL (0.72-1.25); POTASSIUM 3.6 mmol/L (3.5-5.1)
[2019-10-14] MEDS: INSULIN LISPRO 100 UNIT/1 ML 3ML VIAL SQ SCH ×4 (07:30→21:42)
[2019-10-14] MEDS: AZITHROMYCIN 500MG/NS 250 ML 250 ML IV SCH (08:58)
[2019-10-14] MEDS: PANTOPRAZOLE 40 MG 10ML VIAL IV SCH ×2 (08:58→21:26)
[2019-10-14] MEDS: LOSARTAN POTASSIUM 100 MG TAB PO SCH (08:59)
[2019-10-14] MEDS: CARVEDILOL 12.5 MG TAB PO SCH ×2 (08:59→16:20)
--- NOTE | 2019-10-14 09:19 | Diagnostic Imaging Report ---
EXAMINATION: CHEST 2 VIEWS INDICATION: Symptoms concerning for congestive heart failure. COMPARISON: Chest x-ray on 10/12/2019. FINDINGS: TUBES and LINES: None. LUNGS: Normal lung volumes. There is mildly prominent interstitial lung markings. No focal consolidation. PLEURA: No pleural effusion or pneumothorax. HEART AND MEDIASTINUM: The heart is mildly enlarged. The mediastinal contours otherwise within normal limits BONES AND SOFT TISSUES: No acute osseous lesion. Soft tissues are unremarkable. UPPER ABDOMEN: No free air under the diaphragm. IMPRESSION: Mild cardiomegaly with minimal prominence of interstitial lung markings which most likely represents mild interstitial pulmonary edema. Signed by: Karthik Peralta MD on 10/14/2019 9:15 AM
[2019-10-14] MEDS ORDERED: SODIUM CHLORIDE 0.9% 250ML 250 ML ONE (09:51)
[2019-10-14] MEDS: CEFEPIME 1GM/NS 0.9% 50 ML 50 ML IV SCH (10:00)
[2019-10-14] MEDS ORDERED: DIATRIZOATE MEGL/DIATRIZOA SOD 30 ML BTL PO ONE (14:08)
--- NOTE | 2019-10-14 14:11 | NUR ---
PER SHOPPER INSIGHTS MANAGER, PREFERRED IV CONTRAST FOR MASSES, SPOKE WITH DR CRANE WHO STATED TO ASK NEPHROLOGY IF OK TO HAVE IV CONTRAST, SPOKE TO DR BELTRAN BY PHONE- STATES OK FOR PATIENT TO HAVE IV CONTRAST BUT WOULD LIKE TO SEE PATIENT FIRST (ETA 5 MINS), DR CRANE MADE AWARE CT WILL BE DONE WITH IV CONTRAST. FLOOR RN NAHOMI ALSO MADE AWARE.
[2019-10-14] MEDS ORDERED: PROPOFOL IV EMULSION 10 MG/ML 20 ML VIAL ONE (14:13)
[2019-10-14] MEDS ORDERED: LIDOCAINE HCL 2% LOCAL INJ 5 ML SDV VIAL INJ ONE (14:13)
--- NOTE | 2019-10-14 14:25 | Operative Report ---
DATE OF PROCEDURE: 10/14/2019 SURGEON: Jose Arana MD PROCEDURES: EGD with biopsies. INDICATIONS FOR EGD: Anemia, history of melena, guaiac-positive stools. MEDICATIONS: The patient was done under MAC, please see anesthesiologist's note. PROCEDURE IN DETAIL: With the patient in left lateral decubitus position, a flexible fiberoptic Olympus gastroscope was introduced into the esophagus under direct visualization without any difficulty. A semi-circumferential mass was noted starting at approximately 33 cm from the incisors and extending across the GE junction into a moderate-sized hiatal hernia sac. Multiple biopsies were obtained. The mass was ulcerated and friable. The scope was then advanced with ease into the stomach. Mucosa overlying the antrum and the body revealed some diffuse erythema and moderate edema, and biopsies were obtained, sent to stain for H. pylori. Pylorus was of normal contour and shape, it was intubated with ease and the scope was advanced all the way to the second portion of the duodenum. The scope was then withdrawn slowly, mucosa overlying the proximal second portion and duodenal bulb grossly appeared to be within normal limits. The scope was then withdrawn back into the stomach and retroflexed and moderate amount of coffee-ground material was noted in the fundus precluding visualization of the fundus in the proximal body. The scope was then straightened out, it was subsequently withdrawn. The patient tolerated the procedure well. IMPRESSION: 1. Semicircumferential ulcerated mass starting at approximately 34 cm from incisors extending across the GE junction into a moderate-sized hiatal hernia. 2. Moderate-sized hiatal hernia. 3. Gastritis, biopsied, biopsies sent to stain for H. pylori. Moderate amount of retained coffee-ground material precluding visualization of the fundus in the proximal body. PLAN: 1. Follow up histology. 2. Check CEA. 3. The patient will need a CT scan of the chest and the abdomen. 4. An Oncology consult is in order. Jose Arana MD [facility] [place]/MODL /[id number] cc: Jaskaran Gamboa MD
[2019-10-14] MEDS ORDERED: MIDAZOLAM HCL 2 MG/2 ML VIAL ONE (14:55)
[2019-10-14] MEDS ORDERED: IOPAMIDOL 370 MG/ML 200 ML INFUS..BTL INJ ONE (16:06)
[2019-10-14] MEDS ORDERED: SODIUM CHLORIDE 0.9% 50ML 50 ML ONE (16:06)
--- NOTE | 2019-10-14 18:19 | Diagnostic Imaging Report ---
EXAM: CT Chest, Abdomen and Pelvis WITH contrast INDICATION: Evaluation of esophageal mass. COMPARISON: None. TECHNIQUE: Chest, abdomen and pelvis were scanned utilizing a multidetector helical scanner from the lung apex to the pubic symphysis after administration of IV contrast. Coronal and sagittal reformations were obtained. Routine protocol was performed. Scan was performed when during portal venous phase. IV CONTRAST: 100 mL of Isovue 370 ORAL CONTRAST: None COMPLICATIONS: None RADIATION DOSE: Total DLP: 950.46 mGy*cm Estimated effective dose: (DLP x 0.015 x size factor) mSv CTDIvol has been reviewed. It is below the limits set by the Radiation Protocol Committee (RPC). Dose modulation, iterative reconstruction, and/or weight based adjustment of the mA/kV was utilized to reduce the radiation dose to as low as reasonably achievable. FINDINGS: LINES and TUBES: None. LUNGS AND AIRWAYS: The lungs are unremarkable. Airways are normal. PLEURA: The pleural spaces are clear. HEART AND MEDIASTINUM: The thyroid gland is normal. There are prominent mediastinal lymph nodes, none of which meet criteria for pathologic enlargement. No mediastinal, hilar or axillary lymphadenopathy. The heart is normal in size with severe atherosclerotic calcification of the coronary vessels. There is no pericardial effusion. HEPATOBILIARY: There is focal area in the hepatic dome with nodular peripheral enhancement which likely represent hemangiomas (series 2 image 45). There is a small hypodense lesion in the left hepatic lobe too small to characterize by CT but most likely represents a small cyst. No biliary ductal dilation. GALLBLADDER: Focal area of hyperdensity in the gallbladder lumen likely represents a stone or adenomyomatosis. No wall thickening. SPLEEN: Splenomegaly measuring up to 16 cm. Indeterminate hypodense lesion in the spleen which measures approximately 2.9 x 2.4 cm with focal area of central hypoenhancement. PANCREAS: No focal masses or ductal dilatation. ADRENALS: No adrenal nodules KIDNEYS/URETERS: The bilateral kidneys appear atrophic with atherosclerotic calcification of the renal vasculature, likely due to medical renal disease. No hydronephrosis. No cystic or solid mass lesions. No stones. GI TRACT: No abnormal distention, wall thickening, or evidence of bowel obstruction. Appendix is normal. PELVIC ORGANS/BLADDER: There is severe calcification of the seminal vesicles. LYMPH NODES: There are multiple prominent paraesophageal lymph nodes. Additionally, there are multiple prominent inguinal and mesenteric lymph nodes none of which meet criteria for pathologic enlargement. VESSELS: Unremarkable. PERITONEUM / RETROPERITONEUM: No free air or fluid. BONES: Multilevel degenerative changes of the spine with no suspicious osteolytic or osteoblastic lesions. SOFT TISSUES: There is mid to distal esophageal wall thickening with luminal narrowing. IMPRESSION: 1. Mid to distal esophageal wall thickening with luminal narrowing and prominent peraesophageal lymph nodes. This constellation of findings are suspicious for esophageal malignancy. Recommend referral to gastroenterology to determine need for endoscopy and direct tissue sampling. 2. Enlarged spleen with indeterminate hypodense lesion with nodular peripheral enhancement and focal area of central hyperenhancement. This most likely represents a hemangioma, however, given the esophageal thickening suspicious for malignancy, recommend further assessment of this finding with MRI of the abdomen to exclude metastasis. 3. Prominent periesophageal, inguinal and mesenteric lymph nodes. Attention of follow-up evaluation 4. Focal area of hyperdensity in the gallbladder lumen likely represents a stone or benign adenomyomatosis. Signed by: Karthik Peralta MD on 10/14/2019 6:16 PM
[2019-10-14] MEDS ORDERED: LORAZEPAM INJ 2 MG/ML VIAL IV PRN (19:30)
--- NOTE | 2019-10-14 20:30 | NUR ---
RECEIVED PATIENT IN REPORT. PATIENT RESTING ON COUCH IN ROOM, FOOT ELEVATED ON CHAIR. NO PAIN REPORTED. NO S&S OF DISTRESS NOTED.
[2019-10-14] MEDS: INSULIN GLARGINE 100 UNITS/ML VIAL SQ SCH (21:00)
--- NOTE | 2019-10-14 21:29 | NUR ---
PATIENT REFUSED LONG ACTING INSULIN, AND ONLY WANTED 2 UNITS OF HUMALOG, INSTEAD OF 4. PATIENT ALSO REFUSED CLONIDINE FOR BP OF 170/68.
[2019-10-15] VITALS (7 sets, daily range): BP systolic 137–176; BP diastolic 58–75
--- NOTE | 2019-10-15 00:20 | NUR ---
PATIENT REQUESTED TO SPEAK WITH MD Maureen CRANE WHEN HE ROUNDS. WENT TO PATIENT'S ROOM WITH MD CRANE, PATIENT SLEEPING SOUNDLY, SNORING, MD CRANE SAID TO LET HIM REST.
--- NOTE | 2019-10-15 05:42 | NUR ---
PATIENT'S BP ELEVATED REPORTS HE IS "FREAKING OUT," AND FEELS HE DOES NOT UNDERSTAND THE NEXT STEPS MOVING FORWARD. REASSURED PATIENT THAT THE ONCOLOGIST SHOULD SEE HIM TODAY AND HOPEFULLY BE ABLE TO PROVIDE ANSWERS TO HIS QUESTIONS. PATIENT STATED IF HE DOES NOT GET ANSWERS, HE WANTS TO LEAVE TODAY SO HE CAN "AT LEAST HAVE HIS FAMILY'S SUPPORT." BP LOWERED SLIGHTLY TO 176/68. PATIENT CONTINUES TO REFUSE CLONIDINE, STATING IT MADE IT HARD TO SEE LAST TIME HE USED IT. STATED HE WOULD BE OKAY WITH HYDRALAZINE OR NIFEDIPINE, BOTH OF WHICH HAVE WORKED IN THE PAST FOR HIM. STATED HE WAS PRESCRIBED NIFEDIPINE ER 30MG BUT HAD TO GET RENAL APPROVAL TO TAKE IT, BUT IT WORKED WELL FOR HIM.
[2019-10-15 06:36] LABS: BASOPHILS % 0.3 % (0.0-1.0); EOSINOPHILS # (AUTO) 0.1 (0.0-0.4); EOSINOPHILS % 2.7 % (0.0-6.0); HEMATOCRIT 24.6 % (38.2-49.6); HEMOGLOBIN 8.4 g/dL (14.0-18.0); LYMPHOCYTES # (AUTO) 0.6 (1.0-3.2); LYMPHOCYTES % 21.6 % (18.0-39.1); MEAN CORPUSCULAR HEMOGLOBIN 30.3 pg (28-32); MEAN CORPUSCULAR HGB CONC 34.1 g/dL (31-35); MEAN CORPUSCULAR VOLUME 88.8 fL (81-99); MONOCYTES # (AUTO) 0.1 (0.2-0.8); MONOCYTES % 4.1 % (4.4-11.3); NEUTROPHILS # (AUTO) 2.1 (2.1-6.9); PLATELET COUNT 104 x10e3/uL (140-360); RED BLOOD COUNT 2.77 x10e6/uL (4.3-5.7)
[2019-10-15 06:56] LABS: ALBUMIN 3.1 g/dL (3.5-5.0); ALBUMIN/GLOBULIN RATIO 1.6 (0.8-2.0); ANION GAP 17.8 mmol/L (8-16); CALCIUM 8.8 mg/dL (8.4-10.2); CREATININE, SERUM 8.16 mg/dL (0.72-1.25); POTASSIUM 3.8 mmol/L (3.5-5.1)
[2019-10-15] MEDS: INSULIN LISPRO 100 UNIT/1 ML 3ML VIAL SQ SCH ×3 (07:30→15:53)
[2019-10-15] MEDS: LOSARTAN POTASSIUM 100 MG TAB PO SCH (08:22)
[2019-10-15] MEDS: CARVEDILOL 12.5 MG TAB PO SCH ×2 (08:22→15:51)
[2019-10-15] MEDS: PANTOPRAZOLE 40 MG 10ML VIAL IV SCH (08:23)
--- NOTE | 2019-10-15 08:57 | NUR ---
entrepreneurial finance professor visited with the pt , he says the new diagnosis socked him and he felt burden in soul , entrepreneurial finance professor validated his feeling , entrepreneurial finance professor provided counseling how to cope with the with the loss and provided pastoral encouragement, hope building and prayer. He requested Bible for reading and he says he found peace when he reads the Bible. entrepreneurial finance professor provided him with Bible. Pt is accepting more the process and expressed more peace and hope . chaplain Omayra
[2019-10-15] MEDS ORDERED: AZITHROMYCIN 250 MG TAB PO SCH (09:00)
[2019-10-15] MEDS: CEFEPIME 1GM/NS 0.9% 50 ML 50 ML IV SCH (10:00)
--- NOTE | 2019-10-15 12:00 | NUR ---
Dr. Urbina was here to see patient and discussed condition with him. After Dr. Urbina left patient became very depressed and states he wants to go home. He states that he needs to be with his family at this time. Dr. Carlson has not seen patient. Notified Dr. Carlson of patient wishes and he states that it is okay for patient to be discharged from his standpoint because he is not a surgical candidate. Paged Dr. Arana and waiting for call back.
[2019-10-15] MEDS ORDERED: NIFEDIPINE CR 30 MG TAB PO SCH (12:30)
--- NOTE | 2019-10-15 14:00 | NUR ---
Spoke with Dr. Arana over the telephone and made him aware that patient wants to go home. Received orders for patient to discharge.
--- NOTE | 2019-10-15 15:39 | Progress Note ---
DATE: 10/15/2019 SUBJECTIVE: The patient is breathing well, no distress. COVID PCR is negative. Anemia. The patient underwent EGD which showed circumferential ulcerated mass. PHYSICAL EXAMINATION: GENERAL: Awake and alert. VITAL SIGNS: Temperature 98.2, pulse of 70, blood pressure 157/58. Chest: Clear. Abdomen: Soft. LABORATORY DATA: Reviewed. Chemistry reviewed. ASSESSMENT: End-stage renal disease, now has GI bleed and there is ulcerated mass. PLAN: Oncology has been consulted for possible esophageal cancer. Respiratory status stable. Continue antibiotics. Will continue antibiotic. Thank you for this consult. MD KARIE Gunderson/MIMI /[id number]
--- NOTE | 2019-10-15 17:45 | NUR ---
Pt discharged home at this time. Pt verbalized understanding of all discharge instructions and follow up appointments. 0 s/s acute distress noted at time of discharge. Pt was discharged with all personal belongings.
--- NOTE | 2019-10-19 16:43 | NUR ---
Discharge summary: [id number]
--- NOTE | 2019-10-19 17:39 | Discharge Summary ---
ADMIT DIAGNOSES: 1. Acute on chronic anemia. 2. Anemia secondary to chronic disease and chronic kidney disease. 3. Possible right lower lobe pneumonia. 4. Chronic systolic/diastolic congestive heart failure. 5. Hypertensive heart disease. 6. End-stage renal disease. 7. Pancytopenia. 8. Type 2 diabetes with neuropathy. DISCHARGE DIAGNOSES: 1. Status post EGD. 2. Endoscopically proven circumferentially ulcerated mass at gastroesophageal junction. 3. Endoscopically proven moderate-size hiatal hernia and gastritis. 4. End-stage renal disease. 5. Acute on chronic diastolic congestive heart failure. 6. Hypertensive heart disease. 7. Type 2 diabetes with neuropathy. 8. Acute on chronic anemia, resolved. 9. Anemia secondary to chronic disease/chronic kidney disease. 10. Status post blood transfusion (total 4 units of packed red cells were transfused). HOSPITAL COURSE: This is a 59-year-old man, who was initially admitted to [facility] with diagnosis of acute on chronic anemia. This gentleman has underlying history of anemia secondary to chronic disease and chronic kidney disease since he has end-stage renal disease. On admission, he was found to have acute on chronic diastolic heart failure evidence by pulmonary edema on chest x- ray and exam. The patient's pulmonary edema improved with hemodialysis. Initially, it was thought that he had pneumonia, thus Pulmonary was consulted. During this hospitalization the patient underwent a CT of the chest, abdomen, and pelvis. This imaging study revealed mild distal esophageal wall thickening with luminal narrowing and prominent paraesophageal lymph nodes. The patient also underwent a liver ultrasound during this hospitalization that was unremarkable, but did reveal evidence of cholelithiasis. The patient was transfused total of 4 units of packed red blood cells during this hospitalization. The patient was also seen by Dr. Marianna Jaime, physician non invasive cardiologist because of his end-stage renal disease. The patient did receive hemodialysis during this hospitalization. The patient was also found to have Hemoccult positive stools, thus he was seen by Gastroenterology, Dr. Jose Arana. The patient underwent upper endoscopy, which revealed a semi-circumferential ulcerated mass extending across the gastroesophageal junction into a moderate-size hiatal hernia. The patient was also found to have gastritis. The ulcerated mass as well as the gastric mucosa was biopsied. The pathology results were still pending on discharge. The patient was screened for COVID-19 virus during this hospitalization. The COVID-19 test via PCR was negative. The patient's hemoglobin did get as low as 6.4 g/dL. On day of discharge, hemoglobin was 8.4 g/dL. CONDITION ON DISCHARGE: The patient's condition on discharge was stable. DISCHARGE MEDICATIONS: 1. Carvedilol 25 mg b.i.d. 2. Lantus insulin 10 units at night. 3. Velphoro one tablet daily. 4. Tramadol 50 mg every 6 hours p.r.n. pain. 5. Nifedipine 30 mg daily. 6. Pantoprazole 40 mg daily. 7. Losartan 50 mg daily. FOLLOWUP INSTRUCTIONS: The patient is instructed to follow up with Dr. Urbina, the oncologist in 5-7 days and to follow up with general surgeon namely Dr. Kayden Carlson in 2 weeks. MD MAYELA Her/MIMI /[id number] cc: MD Marianna Burnham MD Jorge L Rodriguez, MD Muhammad Faisal, MD MTDD
--- NOTE | 2019-11-05 12:50 | Consultation ---
DATE OF CONSULTATION: 10/15/[address] Jaskaran Gamboa HISTORY OF PRESENT ILLNESS: Mr. Carlson is a 59-year-old male, who was referred to me for cancer of the esophagus, the patient had difficulty with swallowing. SOCIAL HISTORY: History of excessive smoking in the past. FAMILY HISTORY: Noncontributory. ALLERGIES: REPORTED NONE. MEDICATIONS: At this time: 1. Cefepime. 2. Protonix. 3. Coreg. 4. Clonidine. 5. Diphenhydramine. 6. Losartan. 7. Zithromax. 8. Insulin. 9. Lorazepam. 10. Dextrose. REVIEW OF SYSTEMS: HEENT: Normal. CARDIAC: History of hypertension. RESPIRATORY: Normal. GI: Cancer of the esophagus. : On dialysis because of chronic renal failure. MUSCULOSKELETAL: History of having had a great toe amputation because of osteomyelitis in the past. PHYSICAL EXAMINATION: GENERAL: A moderately-built male, anemic, no adenopathy. HEART: Within normal limits. LUNGS: Clear. ABDOMEN: Soft. RECTAL: Deferred. CENTRAL NERVOUS SYSTEM: Essentially, normal. EXTREMITIES: Reveal bandages of the foot. LABORATORY DATA: Sodium 136, potassium 3.8, chloride is 98, CO2 of 24, BUN 53, creatinine 8.1, and glucose 117. Hemoglobin of 8.4, hematocrit 24.6, white count of 2900, and platelets 104,000. INR 0.9. Bilirubin 1.1, SGOT of 13, SGPT of 8, and alkaline phosphatase 91. Stool for occult blood positive. IMAGING DATA: CAT scan showed the patient to have gallstones, there are lesions in the spleen, there is an esophageal mass with regional lymph nodes, the lesions in the liver, hemangioma versus metastases, there are mediastinal lymph nodes. The esophageal mass was biopsied. IMPRESSION: 1. Iron-deficiency anemia. 2. Neutropenia. 3. Thrombocytopenia. 4. Chronic renal failure. 5. Hypoproteinemia. 6. Hypoalbuminemia. 7. Gastrointestinal bleed. 8. Gallstones. 9. Lesions in the spleen. 10. Esophageal mass with regional lymph nodes. 11. Lesions in the liver. 12. Mediastinal mass. PLAN, COMMENTS AND SUGGESTIONS: Suggest suggest pathology. Suggest PET scan as outpatient for any treatment. Prognosis remains extremely poor as is fairly evident that this is a metastatic disease. I have asked the patient to call my office for an appointment as soon as I get the pathology. MD KELLI Burnham/MIMI /[id number] cc: MD Marianna Her MD Maurice S Haddad, MD
== END 2019-10-15 17:45 | disposition short-term general hospital (02) | DRG 374 ==
LOC: ER 19:30 → ERHOLD 21:18 → MED/SURG3 22:57
PROVIDERS: ADMIT Internal Medicine; ATTEND Internal Medicine
PROC: 30233N1 Transfusion of Nonautologous Red Blood Cells into Peripheral Vein, Percutaneous Approach (ICD-10-PCS; 2019-10-12)
PROC: 5A1D70Z Performance of Urinary Filtration, Intermittent, Less than 6 Hours Per Day (ICD-10-PCS; 2019-10-13)
PROC: 0DB78ZX Excision of Stomach, Pylorus, Via Natural or Artificial Opening Endoscopic, Diagnostic (ICD-10-PCS; principal; 2019-10-14 13:00)
DX: C15.9 Malignant neoplasm of esophagus, unspecified (principal); N18.6 End stage renal disease; I50.43 Acute on chronic combined systolic (congestive) and diastolic (congestive) heart failure; I13.2 Hypertensive heart and chronic kidney disease with heart failure and with stage 5 chronic kidney disease, or end stage renal disease; D61.818 Other pancytopenia; I50.42 Chronic combined systolic (congestive) and diastolic (congestive) heart failure; N17.9 Acute kidney failure, unspecified; E11.22 Type 2 diabetes mellitus with diabetic chronic kidney disease; D63.1 Anemia in chronic kidney disease; Z99.2 Dependence on renal dialysis; Z79.4 Long term (current) use of insulin; D69.6 Thrombocytopenia, unspecified; E11.51 Type 2 diabetes mellitus with diabetic peripheral angiopathy without gangrene; K80.80 Other cholelithiasis without obstruction; D50.9 Iron deficiency anemia, unspecified; Z11.59 Encounter for screening for other viral diseases; K44.9 Diaphragmatic hernia without obstruction or gangrene
CPT/HCPCS: 36415; 43239; 71045; 71046; 71260; 74177; 76705; 80053; 82270; 82378; 82607; 82728; 82747; 82948; 83540; 83605; 83880; 84466; 84484; 85025; 85610; 86704; 86706; 86850; 86900; 86920; 87040; 87340; 88305; 88312; 88342; 93005; 93306; 99284; J0456; J0692; J1815; J2001; J2060; J2250; J2543; J7030; J7050; P9016; Q9967

== ENCOUNTER → 2020-11-26 | Outpatient (CLI) | payer MEDICARE ==
[~2020-11-26] MED LIST changes: +VELPHORO500 MG PO
== END ==
LOC: NM 12:24
PROVIDERS: ATTEND Internal Medicine Gastroenterology
DX: C15.5 Malignant neoplasm of lower third of esophagus (principal); K80.20 Calculus of gallbladder without cholecystitis without obstruction; K29.60 Other gastritis without bleeding
CPT/HCPCS: 36415; 78227; 82948; A9537